=== PATIENT | female | born 1985 | race Caucasian/White ===

== ENCOUNTER 2024-08-12 18:18 | Emergency (ER) | payer OTHER, SELFPAY ==
[2024-08-12] VITALS (20 sets, daily range): BP systolic 118–131; BP diastolic 73–82; PULSE 70–75; RESP 16; O2SAT 96–100
--- NOTE | ~2024-08-12 | CT_ITS ---
EXAMINATION: CT abdomen pelvis w con DATE: 08/12/2024 20:32 INDICATION: ruq pain w/ eating TECHNIQUE: Computed tomography (CT) of the abdomen and pelvis was performed with 100 mL Omnipaque-350 intravenous contrast. Automated exposure control and iterative reconstruction technique were employe d. The dose-length product was 509.67 mGy-cm. COMPARISON: None. FINDINGS: Lower thorax: Unremarkable Liver: Normal. Biliary/Gallbladder: Gallbladder is normal. No bile duct dilation. Pancreas: No mass or duct dilation. Spleen: Normal. Adrenals:No mass. Kidneys: Indeterminate density 12 mm right upper pole lesion. Bilateral subcentimeter hypodensities, too small to characterize but statistically most likely represent cysts. Punctate nonobstructing bila teral calculi. Minimal right pelviectasis and caliectasis, with ureteral stranding and enhancement. N o obstructing mass or stone detected in the right collecting system. Uniform renal enhancement. GI tract: No small or large bowel dilation. Normal appendix. Mesentery/Peritoneum: No ascites, mass, or free air. Retroperitoneum: No mass. Pelvis: Pelvic organs are within normal limits. Soft Tissues: Moderate fat-containing uncomplicated appearing umbilical hernia. Bones: No acute osseous finding. IMPRESSION: 12 mm indeterminate density right upper pole lesion. Recommend nonemergent but timely MRI or CT witho ut and with contrast for further evaluation. Mild right pelviectasis and caliectasis with ureteral stranding, may represent ascending infection in the appropriate clinical context. Reviewed, dictated and finalized at location K. IMPRESSION: 12 mm indeterminate density right upper pole lesion. Recommend nonemergent but timely MRI or CT without and with contrast for further evaluation. Mild right pelviectasis and caliectasis with ureteral stranding, may represent ascending infection in the appropriate clinical context.
[2024-08-12 18:56] LABS: Basophils Absolute Auto 0.1 K/mm3 (0.0-0.1); Basophils Percent Auto 0.8 % (0.2-1.2); Eosinophils Absolute Auto 0.8 K/mm3 (0-0.3); Eosinophils Percent Auto 10.2 % (0-4.4); Hematocrit 36.7 % (37.0-47.0); Hemoglobin 12.7 g/dL (12.0-15.0); Immature Granulocyte Absolute 0.02 K/mm3 (0.00-0.031); Immature Granulocyte Percent A 0.3 % (0-0.5); Lymphocytes Absolute Auto 2.08 K/mm3 (0.9-3.2); Lymphocytes Percent Auto 26.7 % (18.3-44.2); Mean Corpuscular HGB Conc 34.6 g/dl (32-36); Mean Corpuscular Hemoglobin 29.8 pg (26-34); Mean Corpuscular Volume 86.2 fl (80-100); Monocytes Absolute Auto 0.3 K/mm3 (0.1-0.6); Monocytes Percent Auto 3.9 % (2.6-8.5); Neutrophils Absolute Auto 4.5 K/mm3 (1.3-6.7); Neutrophils Percent Auto 58.1 % (45.5-73.1); Platelet Count Result 393 k/mm3 (150-375); Red Blood Count 4.26 M/mm3 (4.2-5.4); Red Cell Distribution Width 12.3 % (11.5-14.5); White Blood Count 7.8 K/mm3 (4.5-10.0)
[2024-08-12 19:01] LABS: Add Urine Microscopic? NO; Appearance Urine Clear (Clear); Bilirubin Urine Negative (Negative); Blood Urine Negative (Negative); Color Urine Yellow (Yellow); Glucose Urine UA Negative (Negative); Ketones Urine Negative (Negative); Leukocyte Esterase Ur Negative LEU/UL (Negative); Nitrate Urine Negative (Negative); Protein Urine Negative (Negative); Specific Grav Ur 1.003 (1.001-1.035); Urobilinogen Urine 0.2 mg/dL (<2.0)
[2024-08-12 19:05] LABS: Alanine Aminotransferase 18 U/L (6-35); Albumin Level 4.9 g/dL (3.5-5.1); Alkaline Phosphatase 68 U/L (38-126); Anion Gap 10 mmol/L (4-12); Aspartate Amino Transferase 24 U/L (14-36); Bilirubin,Total 0.3 mg/dL (0.2-1.3); Blood Urea Nitrogen 10 mg/dL (7-17); Calcium 9.6 mg/dL (8.4-10.2); Carbon Dioxide 28 mmol/L (22-30); Chloride 102 mmol/L (98-107); Estimated CRCL calculation 109 ml/min; Estimated Glomerular Filt Rate > 60; Glucose 99 mg/dL (65-110); Lipase 96 U/L (23-300); Potassium 3.6 mmol/L (3.4-5.0); Sodium 140 mmol/L (137-145)
--- OUTSIDE RECORDS SUMMARY | 2024-08-12 19:10 | XMS_ITS | Encounter Summary ---
Author Organization [facility] Address [address] [place] [address] Care Team Providers Care Steam Tender Name Role Phone Porsha Garrido MD Primary Care Provider Encounter Details Date Type Department Care Team (Late st Contact Info) Description 01/26/2001 Outpatient Historical [facility] Pediatrics [place] [address] [facility] [place] [address] Ally Keller MD [address] [facility] 20 [place] [address] Social History Tobacco Use Types Packs/Day Years Used Date Smoking Tobacco: Never Assessed Comments Unknown Sex and Gender Information Value Date Recorded Sex Assigned at Not on file Legal Sex Female 3:08 AM CRUSHER SETTER Gender Identity Not on file Sexual Orientation Not on file documented as of this encounter Plan of Treatment Upcoming Encounters Date Type Department Care Team (Late st Contact Info) Description 08/24/2024 8:45 AM CDT Appointment [facility] Cristian Grullonelwood 801 [facility] [address] [place] [address] Gary Burgess MD [address] [facility] [place] [address] 06/25/2025 3:10 PM CRUSHER SETTER Office Visit [facility] Gastroenterology [place] [address] [place] [address] [place] [address] Gary Burgess MD [address] [id number] [place] [address] 08/08/2025 10:30 AM CDT Office Visit [facility] Neurology [facility] [address] [place] [address] Rama De La Paz MD [address] [place] [address] documented as of this encounter Visit Diagnoses Not on filedocumented in this encounter Additional Health Concerns Infection Onset Date Last Indicated Resolved Time R/O C. diff 05/21/2020 05/21/2020 05/21/2020 1:01 PM CRUSHER SETTER R/O C. diff 10/31/2021 10/30/2021 10/31/2021 3:51 PM CDT R/O C. diff 09/01/2022 08/31/2022 09/01/2022 5:17 PM CDT documented as of this encounter Care Teams Steam Tender Relationship Specialty Start Date End Date Porsha Garrido MD [address] [place] [address] [place] [address] PCP - General 03/04/09 documented as of this encounter
--- OUTSIDE RECORDS SUMMARY | 2024-08-12 19:10 | XMS_ITS | Encounter Summary ---
Author Organization [facility] Address [address] [place] [address] Care Team Providers Care Firefighter Type One Name Role Phone Porsha Garrido MD Primary Care Provider [phone] Encounter Details Date Type Department Care Team (Late st Contact Info) Description 12/09/1999 Outpatient Historical [facility] Pediatrics [place] [address] [facility] [place] [address] Ally Keller MD 450[address] [facility] 20 [place] [address] Social History Tobacco Use Types Packs/Day Years Used Date Smoking Tobacco: Never Assessed Comments Unknown Sex and Gender Information Value Date Recorded Sex Assigned at Not on file Legal Sex Female 3:08 AM HAND ETCHER Gender Identity Not on file Sexual Orientation Not on file documented as of this encounter Plan of Treatment Upcoming Encounters Date Type Department Care Team (Late st Contact Info) Description 08/24/2024 8:45 AM CDT Appointment [facility] Cristian Grullonelwood 801 [facility] 400 [place] [address] Gary Burgess MD [address] [facility]1200 [place] [address] 06/25/2025 3:10 PM HAND ETCHER Office Visit [facility] Gastroenterology [place] [address] [address] [place] [address] Gary Burgess MD [address] [id number] [place] [address] 08/08/2025 10:30 AM CDT Office Visit [facility] Neurology [facility] [address] [place] [address] Rama De La Paz MD [address] [place] [address] documented as of this encounter Visit Diagnoses Not on filedocumented in this encounter Additional Health Concerns Infection Onset Date Last Indicated Resolved Time R/O C. diff 05/21/2020 05/21/2020 05/21/2020 1:01 PM HAND ETCHER R/O C. diff 10/31/2021 10/30/2021 10/31/2021 3:51 PM CDT R/O C. diff 09/01/2022 08/31/2022 09/01/2022 5:17 PM CDT documented as of this encounter Care Teams Firefighter Type One Relationship Specialty Start Date End Date Porsha Garrido MD [address] [place] [address] [place] [address] PCP - General 03/04/09 documented as of this encounter
--- OUTSIDE RECORDS SUMMARY | 2024-08-12 19:10 | XMS_ITS | Encounter Summary ---
Author Organization [facility] Address [address] [place] [address] Care Team Providers Care Road Engineer Name Role Phone Porsha Garrido MD Primary Care Provider Encounter Details Date Type Department Care Team (Late st Contact Info) Description 01/02/1998 Outpatient Historical [facility] [place] [address] [facility] [place] [address] [place] [address] Deshawn Kitchen MD NO ADDRESS ON FILE Social History Tobacco Use Types Packs/Day Years Used Date Smoking Tobacco: Never Assessed Comments Unknown Sex and Gender Information Value Date Recorded Sex Assigned at Not on file Legal Sex Female 3:08 AM SLEEPING ROOM CLEANER Gender Identity Not on file Sexual Orientation Not on file documented as of this encounter Plan of Treatment Upcoming Encounters Date Type Department Care Team (Late st Contact Info) Description 08/24/2024 8:45 AM CDT Appointment [facility] Ultrasound Rupesh [address] [place] [address] Gary Burgess MD [address] [id number] [place] [address] 06/25/2025 3:10 PM SLEEPING ROOM CLEANER Office Visit [facility] Gastroenterology [facility] [address] [place] [address] [place] [address] Gary Burgess MD [address] [id number] [place] [address] 08/08/2025 10:30 AM CDT Office Visit [facility] Neurology [address] [place] [address] [place] [address] Rama De La Paz MD [address] [place] [place] [address] documented as of this encounter Visit Diagnoses Not on filedocumented in this encounter Additional Health Concerns Infection Onset Date Last Indicated Resolved Time R/O C. diff 05/21/2020 05/21/2020 05/21/2020 1:01 PM SLEEPING ROOM CLEANER R/O C. diff 10/31/2021 10/30/2021 10/31/2021 3:51 PM CDT R/O C. diff 09/01/2022 08/31/2022 09/01/2022 5:17 PM CDT documented as of this encounter Care Teams Road Engineer Relationship Specialty Start Date End Date Porsha Garrido MD [address] [place] [address] PCP - General 03/04/09 documented as of this encounter
--- OUTSIDE RECORDS SUMMARY | 2024-08-12 19:10 | XMS_ITS | Encounter Summary ---
Author Organization [facility] Address [address] [place] [address] Care Team Providers Care Nail Tech Name Role Phone Porsha Garrido MD Primary Care Provider [phone] Encounter Details Date Type Department Care Team (Late st Contact Info) Description 05/11/2002 Outpatient Historical [facility] [address] [facility] [place] [address] Deshawn Kitchen MD NO ADDRESS ON FILE Social History Tobacco Use Types Packs/Day Years Used Date Smoking Tobacco: Never Assessed Comments Unknown Sex and Gender Information Value Date Recorded Sex Assigned at Not on file Legal Sex Female 3:08 AM APPRENTICE CARPENTER Gender Identity Not on file Sexual Orientation Not on file documented as of this encounter Plan of Treatment Upcoming Encounters Date Type Department Care Team (Late st Contact Info) Description 08/24/2024 8:45 AM CDT Appointment [facility] Ultrasound Rupesh [address] [place] [address] Gary Burgess MD [address] [id number] [place] [address] 06/25/2025 3:10 PM APPRENTICE CARPENTER Office Visit [facility] Gastroenterology [facility] [address] [place] [address] [place] [address] Gary Burgess MD [address] [id number] [place] [address] 08/08/2025 10:30 AM CDT Office Visit [facility] Neurology [address] [place] [address] [place] [address] Rama De La Paz MD [address] [place] [address] documented as of this encounter Visit Diagnoses Not on filedocumented in this encounter Additional Health Concerns Infection Onset Date Last Indicated Resolved Time R/O C. diff 05/21/2020 05/21/2020 05/21/2020 1:01 PM APPRENTICE CARPENTER R/O C. diff 10/31/2021 10/30/2021 10/31/2021 3:51 PM CDT R/O C. diff 09/01/2022 08/31/2022 09/01/2022 5:17 PM CDT documented as of this encounter Care Teams Nail Tech Relationship Specialty Start Date End Date Porsha Garrido MD [address] [place] [address] PCP - General 03/04/09 documented as of this encounter
--- OUTSIDE RECORDS SUMMARY | 2024-08-12 19:10 | XMS_ITS | Encounter Summary ---
Author Organization [facility] Address [address] [facility] [place] [address] Care Team Providers Care Chiropractic Care Name Role Phone Porsha Garrido MD Primary Care Provider Carina Rey MD Unavailable Unavailable Gary Burgess MD Unavailable [phone] Evelyn García RN Unavailable [phone] Porsha Garrido MD Unavailable [phone] Joselito Gold MD Unavailable [phone] Porsha Garrido MD Unavailable [phone] Joselito Gold MD Unavailable [phone] Jolie Marrero PA-C Unavailable [phone] Porsha Garrido MD Unavailable [phone] Porsha Garrido MD Unavailable [phone] Joselito Casarez MD Unavailable Unavailable Michelle Nogueira LITIGATION LEGAL ASSISTANT-SENIOR BENEFITS ANALYST Unavailable [phone] Porsha Garrido MD Unavailable Paloma Romo Unavailable Marjorie Weston DO Unavailable Porsha Garrido MD Unavailable Encounter Details Date Type Department Care Team (Late st Contact Info) Description 10/11/[address] [facility] Outpatient Visit [facility] Orthopedics - Radiology [address] [place] [address] Meir Luo DO [address] [place] [address] [place] [id number] Social History Tobacco Use Types Packs/Day Years Used Date Smoking Tobacco: Never Smokeless Tobacco: Never Alcohol Use Standard Drinks/Week Comments Yes 0 (1 standard drink = 0.6 oz pur e alcohol) occasionally Sex and Gender Information Value Date Recorded Sex Assigned at Not on file Gender Identity Female 01/16/2019 9:49 AM CDT Sexual Orientation Not on file documented as of this encounter Plan of Treatment Upcoming Encounters Date Type Department Care Team (Late st Contact Info) Description 10/05/2024 10:00 AM CDT Office Visit [facility] - Surgery [address] [place] [address] Satnam Nicole MD [address] [place] [address] 10/12/2024 8:15 AM CDT Video Visit [facility] - Family Medicine [address] [place] [address] Porsha Garrido MD [address] [place] [id number] documented as of this encounter Visit Diagnoses Not on filedocumented in this encounter Additional Health Concerns Infection Onset Date Last Indicated Resolved Time COVID-19 Under Investigation 04/01/2020 04/01/2020 04/02/2020 2:40 PM SUPERVISOR OF OFFICIALS COVID-19 Confirmed 04/01/2020 04/01/202004/11/202 0 4:34 AM SUPERVISOR OF OFFICIALS documented as of this encounter Care Teams Chiropractic Care Relationship Specialty Start Date End Date Porsha Garrido MD [address] [place] [address] PCP - General 01/31/11 Porsha Garrido MD [address] [place] [address] PCP - Attributed-[employer] Commercial 09/13/18 11/01/19 Joselito Gold MD [address] [place] [address] PCP - Attributed-[employer] 07/15/19 08/14/19 Porsha Garrido MD [address] [place] [address] PCP - Attributed-[employer] 08/15/19 07/13/20 Jolie Marrero PA-C [address] [place] [phone] PCP - Attributed-[employer] 07/14/20 08/13/20 Porsha Garrido MD [address] [place] [address] PCP - Attributed-[employer] 08/14/20 12/29/21 Porsha Garrido MD [address] [place] [address] PCP - Attributed-[employer] Commercial 05/16/22 08/31/22 Porsha Garrido MD [address] [place] [address] [place] [address] PCP - Attributed-[place] Commercial 11/13/22 07/31/24 Porsha Garrido MD [address] [place] [address] PCP - Attributed-[employer] 10/29/16 09/14/17 Carina Rey MD [address] [place] [address] Obstetrics and Gynecology 10/27/11 07/14/20 Gary Burgess MD [address] [place] [address] [place] [address] Gastroenterology 08/22/13 Evelyn García, RN Tier And Detonator 01/05/15 06/07/24 Joselito Gold MD [address] [place] [address] Obstetrics and Gynecology 07/15/20 5 Joselito Casarez MD [address] [place] [phone] Hematology and Oncology 09/03/22 05/26/23 Michelle Nogueira, LITIGATION LEGAL ASSISTANT-SENIOR BENEFITS ANALYST [address] [place] [address] [place] [address] Nurse Practitioner Nurse Practitioner Adult Health 09/03/22 Paloma Romo Care Coordination Specialist Care Management 12/13/23 12/13/23 Marjorie Weston DO [address] [facility] 200 [place] [address] Rheumatology 05/31/24 documented as of this encounter
--- OUTSIDE RECORDS SUMMARY | 2024-08-12 19:10 | XMS_ITS | Encounter Summary ---
Author Organization [facility] Address [address] [place] [address] Care Team Providers Care Top Trimmer Name Role Phone Porsha Garrido MD Primary Care Provider Encounter Details Date Type Department Care Team (Late st Contact Info) Description 08/15/2000 Outpatient Historical [facility] [address] [facility] [place] [address] [place] [address] Deshawn Kitchen MD NO ADDRESS ON FILE Social History Tobacco Use Types Packs/Day Years Used Date Smoking Tobacco: Never Assessed Comments Unknown Sex and Gender Information Value Date Recorded Sex Assigned at Not on file Legal Sex Female 3:08 AM PET SUPPLIES SALESPERSON Gender Identity Not on file Sexual Orientation Not on file documented as of this encounter Plan of Treatment Upcoming Encounters Date Type Department Care Team (Late st Contact Info) Description 08/24/2024 8:45 AM CDT Appointment [facility] Ultrasound Rupesh [address] [place] [address] Gary Burgess MD [address] [id number] [place] [address] 06/25/2025 3:10 PM PET SUPPLIES SALESPERSON Office Visit [facility] Gastroenterology [facility] [address] [place] [address] [place] [address] Gary Burgess MD [address] [id number] [place] [address] 08/08/2025 10:30 AM CDT Office Visit [facility] Neurology [address] [place] [address] Rama De La Paz MD [address] [place] [address] documented as of this encounter Visit Diagnoses Not on filedocumented in this encounter Additional Health Concerns Infection Onset Date Last Indicated Resolved Time R/O C. diff 05/21/2020 05/21/2020 05/21/2020 1:01 PM PET SUPPLIES SALESPERSON R/O C. diff 10/31/2021 10/30/2021 10/31/2021 3:51 PM CDT R/O C. diff 09/01/2022 08/31/2022 09/01/2022 5:17 PM CDT documented as of this encounter Care Teams Top Trimmer Relationship Specialty Start Date End Date Porsha Garrido MD [address] [place] [address] PCP - General 03/04/09 documented as of this encounter
--- OUTSIDE RECORDS SUMMARY | 2024-08-12 19:10 | XMS_ITS | Encounter Summary ---
Author Organization [facility] Address [address] [place] [address] Care Team Providers Care Assembler Finger Buffs Name Role Phone Porsha Garrido MD Primary Care Provider Encounter Details Date Type Department Care Team (Late st Contact Info) Description 08/18/1998 Outpatient Historical [facility] Pediatrics [place] [address] [facility] [place] [address] Brayan Solitario MD [address] [place] [address] Social History Tobacco Use Types Packs/Day Years Used Date Smoking Tobacco: Never Assessed Comments Unknown Sex and Gender Information Value Date Recorded Sex Assigned at Not on file Legal Sex Female 3:08 AM INFANTRY UNIT LEADER Gender Identity Not on file Sexual Orientation Not on file documented as of this encounter Plan of Treatment Upcoming Encounters Date Type Department Care Team (Late st Contact Info) Description 08/24/2024 8:45 AM CDT Appointment [facility] Cristian Goddard [address] [facility] [place] [address] [place] [address] Gary Burgess MD [address] [facility] [place] [address] 06/25/2025 3:10 PM INFANTRY UNIT LEADER Office Visit [facility] Gastroenterology [place] [address] [place] [address] Gary Burgess MD [address] [id number] [place] [address] 08/08/2025 10:30 AM CDT Office Visit [facility] Neurology [facility] [address] [place] [address] Rama De La Paz MD [address] [place] [address] documented as of this encounter Visit Diagnoses Not on filedocumented in this encounter Additional Health Concerns Infection Onset Date Last Indicated Resolved Time R/O C. diff 05/21/2020 05/21/2020 05/21/2020 1:01 PM INFANTRY UNIT LEADER R/O C. diff 10/31/2021 10/30/2021 10/31/2021 3:51 PM CDT R/O C. diff 09/01/2022 08/31/2022 09/01/2022 5:17 PM CDT documented as of this encounter Care Teams Assembler Finger Buffs Relationship Specialty Start Date End Date Porsha Garrido MD [address] [place] [address] PCP - General 03/04/09 documented as of this encounter
--- OUTSIDE RECORDS SUMMARY | 2024-08-12 19:10 | XMS_ITS | Encounter Summary ---
Author Organization [facility] Address [address] [place] [address] Care Team Providers Care Tool Sharpener Name Role Phone Porsha Garrido MD Primary Care Provider Encounter Details Date Type Department Care Team (Late st Contact Info) Description 11/23/2004 Outpatient Historical [facility] [place] [address] [facility] [place] [address] Deshawn Kitchen MD NO ADDRESS ON FILE Social History Tobacco Use Types Packs/Day Years Used Date Smoking Tobacco: Never Assessed Comments Unknown Sex and Gender Information Value Date Recorded Sex Assigned at Not on file Legal Sex Female 3:08 AM NURSING PROGRAM CHAIR Gender Identity Not on file Sexual Orientation Not on file documented as of this encounter Plan of Treatment Upcoming Encounters Date Type Department Care Team (Late st Contact Info) Description 08/24/2024 8:45 AM CDT Appointment [facility] Ultrasound Rupesh [address] [place] [address] Gary Burgess MD [address] [id number] [place] [address] 06/25/2025 3:10 PM NURSING PROGRAM CHAIR Office Visit [facility] Gastroenterology [facility] [address] [place] [address] Gary Burgess MD [address] [id number] [place] [address] 08/08/2025 10:30 AM CDT Office Visit [facility] Neurology [address] [place] [address] Rama De La Paz MD [address] [place] [address] documented as of this encounter Visit Diagnoses Not on filedocumented in this encounter Additional Health Concerns Infection Onset Date Last Indicated Resolved Time R/O C. diff 05/21/2020 05/21/2020 05/21/2020 1:01 PM NURSING PROGRAM CHAIR R/O C. diff 10/31/2021 10/30/2021 10/31/2021 3:51 PM CDT R/O C. diff 09/01/2022 08/31/2022 09/01/2022 5:17 PM CDT documented as of this encounter Care Teams Tool Sharpener Relationship Specialty Start Date End Date Porsha Garrido MD [address] [place] [phone] PCP - General 03/04/09 documented as of this encounter
--- OUTSIDE RECORDS SUMMARY | 2024-08-12 19:10 | XMS_ITS | Encounter Summary ---
Author Organization [facility] Address [address] [place] [address] Care Team Providers Care Motor Scooter Mechanic Name Role Phone Porsha Garrido MD Primary Care Provider Encounter Details Date Type Department Care Team (Late st Contact Info) Description 06/29/2005 Orders Only [facility] Pediatrics [place] [address] [facility] [place] [address] Vandana Hernandez NP NO ADDRESS ON FILE Social History Tobacco Use Types Packs/Day Years Used Date Smoking Tobacco: Never Assessed Comments Unknown Sex and Gender Information Value Date Recorded Sex Assigned at Not on file Legal Sex Female 3:08 AM HAT BAND ATTACHER Gender Identity Not on file Sexual Orientation Not on file documented as of this encounter Progress Notes * Vandana Hernandez NP - 02/22/2008 2:41 PM CDT TIME:05:43 pm PATIENT`S HOME PHONE: PATIENT`S WORK PHONE: PATIENT`S INSURANCE: [employer] WHO TOOK THE CALL: Deshawn Kitchen A saw PATRICE yesterday and had pelvic and abdominal ultrasounds today.Both are normal Please call family TOMORROW on 07-01-05 and let them know that all X rays normal. This am (07-01) I got the urine culture back which shows presence of UTI. Start Septra DS, 1 po bid andcall back Tuesday with follow up report and to check on the sensitivities SECTION 1: DOCTOR`S RESPONSE: mayank 07/01/05 at 08:14 am MEDICATIONS: Call in to Pharmacy [facility] DS ORAL TABLET [id number] MG TABLETS, 1 po bid, 20 Dispensed, status: NEW PRESCRIPTION, 06/29/2005. SECTION 2: FINAL ACTION: óscar 07/01/05 at 09:29 am Spoke with patient 07/01/05 at 09:29 am. mom informed of all; will call back sat Called pharmacy at 07/01/05 at 09:30 am. daniella ramirez Electronically Signed by: Morena Reyes RN on , July 01, 2005 * Vandana Hernandez NP - 02/22/2008 2:41 PM CDT PATIENT'S AGE: 20 yrs, 0 mths, 1 wk, 6 days NURSE NAME: Vicenta Tidwell Dominik wt-117 lb temp-99.0ty ACCOMPANIED BY: The patient came alone. HISTORY PROVIDED BY: The patient history was provided by the patient (alone). ALLERGIES: CURRENT ALLERGY LIST: [facility] MEDICATIONS: RN/MA reviewed medications.naeem, adv, nexium CHIEF COMPLAINT: The child is here for evaluation of pain.in LLQ x 1 week, dances at school HISTORY: HPI: ABDOMINAL PAIN: The abdominal pain began approximately 1 week ago. The location of the pain is in the right lower quadrant. The pain does not radiate. The quality is crampy. The severity is intermittent. The patient has no complaints of bowel changes, no complaints of constipation, no complaints ofnausea, no complaints of vomiting, the patient does not have a fever. LMP 10-14 days ago. periods without problems. She dances regularly, no recent injury or unusual activities. REVIEW OF SYSTEMS: GENERAL: Appears to have normal activity, no change in appetite, no fever, normal fluid intake, sleeps well. GI: No vomiting, APPEARS TO HAVE ABDOMINAL PAIN WHICH IS LOCATED IN THE RIGHT LOWER QUADRANT. PHYSICAL EXAM: CONSTITUTIONAL: GENERAL APPEARANCE: Healthy appearing, alert patient, normally nourished, developmentally normal and in no acute distress. EYES: CONJUNCTIVA/LIDS: Conjunctivae and lids appear normal. PUPILS: Pupils equal and round. EARS, NOSE, MOUTH AND THROAT: EXTERNAL/EARS AND NOSE: Overall appearance normal without lesions or masses. EARS: Tympanic membranes shiny without retraction. Canals unremarkable. Hearing grossly normal. NOSE (AND SINUS): No abnormality of the nose or sinuses is noted. ORAL: Inspection of gums, lips, palate, and dentition normal. No lesions or masses. Oral mucosa unremarkable with non-inflamed posterior pharynx. NECK: No lymphadenopathy noted. Supple. RESPIRATORY: Clear to auscultation. Normal respiratory effort. CARDIOVASCULAR: CARDIAC: Regular rhythm with no murmurs, rubs, gallops, or abnormal heart sounds. GASTROINTESTINAL: ABDOMEN: Soft, non-tender, without masses. Bowel sound active.no significant findings on exam today. I cannot reproduce the pain. LIVER/SPLEEN/KIDNEY: No hepatosplenomegaly. MUSCULOSKELETAL EXAM: SPINE/RIBS/PELVIS: No kyphosis, lordosis, full range of motion. Normal stability, strength and tone. SKIN: INSPECTION: Good color, no rashes, birthmarks or lesions noted on arms, chest or abdomen. OFFICE PROCEDURE: URINALYSIS RESULTS WBC: WBC`s were negative. NITRITE: nitrites were negative. UROBILINOGEN urobilinogen was normal. PROTEIN: protein was negative. pH: pH was 5. U/A BLOOD: blood was negative. SPECIFIC GRAVITY: specific gravity was 1.030. KETONES: ketones were negative. BILIRUBIN: bilirubin was negative. GLUCOSE: glucose was negative. ASSESSMENT/PLAN: 789.07-ABDOMINAL PAIN GENERALIZED ? DESKTOP SPECIALIST in nature Abdominal and pelvic US scheduled for 06/30 at [facility]. Call sooner if any increased sxs develop Electronically Signed by: YUSUF Ferrari on Wednesday, June 29, 2005 Electronically Signed by: Deshawn Kitchen MD on Thursday, June 30, 2005 documented in this encounter Plan of Treatment Upcoming Encounters Date Type Department Care Team (Late st Contact Info) Description 08/24/2024 8:45 AM CDT Appointment [facility] Cristian Alton [address] [place] [address] Gary Burgess MD [address] [place] [address] 06/25/2025 3:10 PM HAT BAND ATTACHER Office Visit [facility] Gastroenterology [place] [address] [facility] [address] [place] [address] Gary Burgess MD [address] [facility] [id number] [place] [address] 08/08/2025 10:30 AM CDT Office Visit [facility] Neurology [facility] [address] [facility] [address] [place] [address] Rama De La Paz MD [address] [facility] [address] [place] [address] documented as of this encounter Visit Diagnoses Not on filedocumented in this encounter Additional Health Concerns Infection Onset Date Last Indicated Resolved Time R/O C. diff 05/21/2020 05/21/2020 05/21/2020 1:01 PM HAT BAND ATTACHER R/O C. diff 10/31/2021 10/30/2021 10/31/2021 3:51 PM CDT R/O C. diff 09/01/2022 08/31/2022 09/01/2022 5:17 PM CDT documented as of this encounter Care Teams Motor Scooter Mechanic Relationship Specialty Start Date End Date Porsha Garrido MD [address] [place] [address] PCP - General 03/04/09 documented as of this encounter
--- OUTSIDE RECORDS SUMMARY | 2024-08-12 19:10 | XMS_ITS | Encounter Summary ---
Author Organization [facility] Address [address] [place] [address] Care Team Providers Care Brokerage Manager Name Role Phone Porsha Garrido MD Primary Care Provider Encounter Details Date Type Department Care Team (Late st Contact Info) Description 10/13/2005 Outpatient Historical [facility] [place] [address] [facility] [place] [address] Deshawn Kitchen MD NO ADDRESS ON FILE Social History Tobacco Use Types Packs/Day Years Used Date Smoking Tobacco: Never Assessed Comments Unknown Sex and Gender Information Value Date Recorded Sex Assigned at Not on file Legal Sex Female 3:08 AM CRYPTOGRAPHIC CLERK Gender Identity Not on file Sexual Orientation Not on file documented as of this encounter Plan of Treatment Upcoming Encounters Date Type Department Care Team (Late st Contact Info) Description 08/24/2024 8:45 AM CDT Appointment [facility] Ultrasound Rupesh [address] [place] [address] Gary Burgess MD [address] [id number] [place] [address] 06/25/2025 3:10 PM CRYPTOGRAPHIC CLERK Office Visit [facility] Gastroenterology [facility] [address] [place] [address] Gary Burgess MD [address] [id number] [place] [address] 08/08/2025 10:30 AM CDT Office Visit [facility] Neurology [address] [place] [address] Rama De La Paz MD [address] [place] [address] documented as of this encounter Visit Diagnoses Not on filedocumented in this encounter Additional Health Concerns Infection Onset Date Last Indicated Resolved Time R/O C. diff 05/21/2020 05/21/2020 05/21/2020 1:01 PM CRYPTOGRAPHIC CLERK R/O C. diff 10/31/2021 10/30/2021 10/31/2021 3:51 PM CDT R/O C. diff 09/01/2022 08/31/2022 09/01/2022 5:17 PM CDT documented as of this encounter Care Teams Brokerage Manager Relationship Specialty Start Date End Date Porsha Garrido MD [address] [place] [address] PCP - General 03/04/09 documented as of this encounter
--- OUTSIDE RECORDS SUMMARY | 2024-08-12 19:10 | XMS_ITS | Encounter Summary ---
Author Organization [facility] Address [address] [place] [address] Care Team Providers Care Home Health Clinical Liaison Name Role Phone Porsha Garrido MD Primary Care Provider Encounter Details Date Type Department Care Team (Late st Contact Info) Description 01/17/1998 Outpatient Historical [facility] Pediatrics [place] [facility] [place] [address] [facility] [place] [address] Eduardo Mason MD NO ADDRESS ON FILE Social History Tobacco Use Types Packs/Day Years Used Date Smoking Tobacco: Never Assessed Comments Unknown Sex and Gender Information Value Date Recorded Sex Assigned at Not on file Legal Sex Female 3:08 AM PHYSICIAN RELATIONS REPRESENTATIVE Gender Identity Not on file Sexual Orientation Not on file documented as of this encounter Plan of Treatment Upcoming Encounters Date Type Department Care Team (Late st Contact Info) Description 08/24/2024 8:45 AM CDT Appointment [facility] Ultrasound Rupesh [address] [place], [place] [address]siddharth [facility] [address] [place] [phone] Gary Burgess MD [address] [id number] [place] [address] 06/25/2025 3:10 PM PHYSICIAN RELATIONS REPRESENTATIVE Office Visit [facility] Gastroenterology [place] [address] [place] [address] Gary Burgess MD [address] [id number] [place] [address] 08/08/2025 10:30 AM CDT Office Visit [facility] Neurology [address] [place] [address] Rama De La Paz MD [address] [place] [address] documented as of this encounter Visit Diagnoses Not on filedocumented in this encounter Additional Health Concerns Infection Onset Date Last Indicated Resolved Time R/O C. diff 05/21/2020 05/21/2020 05/21/2020 1:01 PM PHYSICIAN RELATIONS REPRESENTATIVE R/O C. diff 10/31/2021 10/30/2021 10/31/2021 3:51 PM CDT R/O C. diff 09/01/2022 08/31/2022 09/01/2022 5:17 PM CDT documented as of this encounter Care Teams Home Health Clinical Liaison Relationship Specialty Start Date End Date Porsha Garrido MD [address] [place] [address] PCP - General 03/04/09 documented as of this encounter
--- OUTSIDE RECORDS SUMMARY | 2024-08-12 19:10 | XMS_ITS | Encounter Summary ---
Author Organization [facility] Address [address] [place] [address] Care Team Providers Care Cardiac Care Nurse Name Role Phone Porsha Garrido MD Primary Care Provider Encounter Details Date Type Department Care Team (Late st Contact Info) Description 10/13/2005 Outpatient Historical [facility] [place] [address] [facility] [place] [address] [place] [address] Deshawn Kitchen MD NO ADDRESS ON FILE Social History Tobacco Use Types Packs/Day Years Used Date Smoking Tobacco: Never Assessed Comments Unknown Sex and Gender Information Value Date Recorded Sex Assigned at Not on file Legal Sex Female 3:08 AM MANPOWER DEVELOPMENT SPECIALIST MANAGER Gender Identity Not on file Sexual Orientation Not on file documented as of this encounter Plan of Treatment Upcoming Encounters Date Type Department Care Team (Late st Contact Info) Description 08/24/2024 8:45 AM CDT Appointment [facility] Ultrasound Rupesh [address] [place] [address] Gary Burgess MD [address] [id number] [place] [address] 06/25/2025 3:10 PM MANPOWER DEVELOPMENT SPECIALIST MANAGER Office Visit [facility] Gastroenterology [facility] [address] [place] [address] Gary Burgess MD [address] [id number] [place] [address] 08/08/2025 10:30 AM CDT Office Visit [facility] Neurology [address] [place] [address] Rama De La Paz MD [address] [place] [address] documented as of this encounter Visit Diagnoses Not on filedocumented in this encounter Additional Health Concerns Infection Onset Date Last Indicated Resolved Time R/O C. diff 05/21/2020 05/21/2020 05/21/2020 1:01 PM MANPOWER DEVELOPMENT SPECIALIST MANAGER R/O C. diff 10/31/2021 10/30/2021 10/31/2021 3:51 PM CDT R/O C. diff 09/01/2022 08/31/2022 09/01/2022 5:17 PM CDT documented as of this encounter Care Teams Cardiac Care Nurse Relationship Specialty Start Date End Date Porsha Garrido MD [address] [place] [address] PCP - General 03/04/09 documented as of this encounter
--- OUTSIDE RECORDS SUMMARY | 2024-08-12 19:10 | XMS_ITS | Encounter Summary ---
Author Organization [facility] Address [address] [place] [address] Care Team Providers Care Electronic Organ Mechanic Name Role Phone Porsha Garrido MD Primary Care Provider Encounter Details Date Type Department Care Team (Late st Contact Info) Description 02/16/1999 Outpatient Historical [facility] [place] [address] [facility] [place] [address] [place] [address] Deshawn Kitchen MD NO ADDRESS ON FILE Social History Tobacco Use Types Packs/Day Years Used Date Smoking Tobacco: Never Assessed Comments Unknown Sex and Gender Information Value Date Recorded Sex Assigned at Not on file Legal Sex Female 3:08 AM EXECUTIVE CHAIRMAN Gender Identity Not on file Sexual Orientation Not on file documented as of this encounter Plan of Treatment Upcoming Encounters Date Type Department Care Team (Late st Contact Info) Description 08/24/2024 8:45 AM CDT Appointment [facility] Ultrasound Rupesh [address] [place] [address] Gary Burgess MD [address] [id number] [place] [address] 06/25/2025 3:10 PM EXECUTIVE CHAIRMAN Office Visit [facility] Gastroenterology [facility] [address] [place] [address] Gary Burgess MD [address] [id number] [place] [address] 08/08/2025 10:30 AM CDT Office Visit [facility] Neurology [address] [place] [address] Rama De La Paz MD [address] [place] [address] documented as of this encounter Visit Diagnoses Not on filedocumented in this encounter Additional Health Concerns Infection Onset Date Last Indicated Resolved Time R/O C. diff 05/21/2020 05/21/2020 05/21/2020 1:01 PM EXECUTIVE CHAIRMAN R/O C. diff 10/31/2021 10/30/2021 10/31/2021 3:51 PM CDT R/O C. diff 09/01/2022 08/31/2022 09/01/2022 5:17 PM CDT documented as of this encounter Care Teams Electronic Organ Mechanic Relationship Specialty Start Date End Date Porsha Garrido MD [address] [place] [address] PCP - General 03/04/09 documented as of this encounter
--- OUTSIDE RECORDS SUMMARY | 2024-08-12 19:10 | XMS_ITS | Encounter Summary ---
Author Organization [facility] Address [address] [place] [address] Care Team Providers Care Scalemaker Name Role Phone Porsha Garrido MD Primary Care Provider Encounter Details Date Type Department Care Team (Late st Contact Info) Description 07/16/2002 Outpatient Historical [facility] Pediatrics [place] [address] [facility] [place] [address] Deshawn Kitchen MD NO ADDRESS ON FILE Social History Tobacco Use Types Packs/Day Years Used Date Smoking Tobacco: Never Assessed Comments Unknown Sex and Gender Information Value Date Recorded Sex Assigned at Not on file Legal Sex Female 3:08 AM CHEMICAL ENGINEERING TECHNOLOGIST Gender Identity Not on file Sexual Orientation Not on file documented as of this encounter Plan of Treatment Upcoming Encounters Date Type Department Care Team (Late st Contact Info) Description 08/24/2024 8:45 AM CDT Appointment [facility] Ultrasound Rupesh [address] [place] [address] Gary Burgess MD [address] [id number] [place] [address] 06/25/2025 3:10 PM CHEMICAL ENGINEERING TECHNOLOGIST Office Visit [facility] Gastroenterology [facility] [address] [place] [address] Gary Burgess MD [address] [id number] [place] [address] 08/08/2025 10:30 AM CDT Office Visit [facility] Neurology [address] [place] [address] Rama De La Paz MD [address] [place] [address] documented as of this encounter Visit Diagnoses Not on filedocumented in this encounter Additional Health Concerns Infection Onset Date Last Indicated Resolved Time R/O C. diff 05/21/2020 05/21/2020 05/21/2020 1:01 PM CHEMICAL ENGINEERING TECHNOLOGIST R/O C. diff 10/31/2021 10/30/2021 10/31/2021 3:51 PM CDT R/O C. diff 09/01/2022 08/31/2022 09/01/2022 5:17 PM CDT documented as of this encounter Care Teams Scalemaker Relationship Specialty Start Date End Date Porsha Garrido MD [address] [place] [address] PCP - General 03/04/09 documented as of this encounter
--- OUTSIDE RECORDS SUMMARY | 2024-08-12 19:10 | XMS_ITS | Encounter Summary ---
Author Organization [facility] Address [address] [place] [address] Care Team Providers Care Certified Marine Mechanic Name Role Phone Porsha Garrido MD Primary Care Provider Encounter Details Date Type Department Care Team (Late st Contact Info) Description 12/27/2001 Outpatient Historical [facility] [place] [address] [facility] [place] [address] [place] [address] Deshawn Kitchen MD NO ADDRESS ON FILE Social History Tobacco Use Types Packs/Day Years Used Date Smoking Tobacco: Never Assessed Comments Unknown Sex and Gender Information Value Date Recorded Sex Assigned at Not on file Legal Sex Female 3:08 AM PUBLIC HEALTH TECHNOLOGIST Gender Identity Not on file Sexual Orientation Not on file documented as of this encounter Plan of Treatment Upcoming Encounters Date Type Department Care Team (Late st Contact Info) Description 08/24/2024 8:45 AM CDT Appointment [facility] Ultrasound Rupesh [address] [place] [address] Gary Burgess MD [address] [id number] [place] [address] 06/25/2025 3:10 PM PUBLIC HEALTH TECHNOLOGIST Office Visit [facility] Gastroenterology [facility] [address] [place] [address] Gary Burgess MD [address] [id number] [place] [address] 08/08/2025 10:30 AM CDT Office Visit [facility] Neurology [address] [place] [address] Rama De La Paz MD [address] [place] [address] documented as of this encounter Visit Diagnoses Not on filedocumented in this encounter Additional Health Concerns Infection Onset Date Last Indicated Resolved Time R/O C. diff 05/21/2020 05/21/2020 05/21/2020 1:01 PM PUBLIC HEALTH TECHNOLOGIST R/O C. diff 10/31/2021 10/30/2021 10/31/2021 3:51 PM CDT R/O C. diff 09/01/2022 08/31/2022 09/01/2022 5:17 PM CDT documented as of this encounter Care Teams Certified Marine Mechanic Relationship Specialty Start Date End Date Porsha Garrido MD [address] [place] [address] PCP - General 03/04/09 documented as of this encounter
--- OUTSIDE RECORDS SUMMARY | 2024-08-12 19:10 | XMS_ITS | Encounter Summary ---
Author Organization [facility] Address [address] [place] [address] Care Team Providers Care Communication Analyst Name Role Phone Porsha Garrido MD Primary Care Provider Encounter Details Date Type Department Care Team (Late st Contact Info) Description 06/25/1998 Outpatient Historical [facility] [place] [address] [facility] [place] [phone] Deshawn Kitchen MD NO ADDRESS ON FILE Social History Tobacco Use Types Packs/Day Years Used Date Smoking Tobacco: Never Assessed Comments Unknown Sex and Gender Information Value Date Recorded Sex Assigned at Not on file Legal Sex Female 3:08 AM SIGNS SALES REPRESENTATIVE Gender Identity Not on file Sexual Orientation Not on file documented as of this encounter Plan of Treatment Upcoming Encounters Date Type Department Care Team (Late st Contact Info) Description 08/24/2024 8:45 AM CDT Appointment [facility] Ultrasound Rupesh [address] [place] [address] Gary Burgess MD [address] [id number] [place] [address] 06/25/2025 3:10 PM SIGNS SALES REPRESENTATIVE Office Visit [facility] Gastroenterology [facility] [address] [place] [address] Gary Burgess MD [address] [id number] [place] [address] 08/08/2025 10:30 AM CDT Office Visit [facility] Neurology [address] [place] [address] Rama De La Paz MD [address] [place] [address] documented as of this encounter Visit Diagnoses Not on filedocumented in this encounter Additional Health Concerns Infection Onset Date Last Indicated Resolved Time R/O C. diff 05/21/2020 05/21/2020 05/21/2020 1:01 PM SIGNS SALES REPRESENTATIVE R/O C. diff 10/31/2021 10/30/2021 10/31/2021 3:51 PM CDT R/O C. diff 09/01/2022 08/31/2022 09/01/2022 5:17 PM CDT documented as of this encounter Care Teams Communication Analyst Relationship Specialty Start Date End Date Porsha Garrido MD [address] [place] [address] PCP - General 03/04/09 documented as of this encounter
--- OUTSIDE RECORDS SUMMARY | 2024-08-12 19:10 | XMS_ITS | Encounter Summary ---
Author Organization [facility] Address [address] [place] [address] Care Team Providers Care Picker Packer Name Role Phone Porsha Garrido MD Primary Care Provider Carina Rey MD Unavailable Unavailable Gary Burgess MD Unavailable [phone] Evelyn García RN Unavailable [phone] Porsha Garrido MD Unavailable [phone] Joselito Gold MD Unavailable [phone] Porsha Garrido MD Unavailable [phone] Joselito Gold MD Unavailable [phone] Jolie Marrero PA-C Unavailable [phone] Porsha aGrrido MD Unavailable [phone] Porsha Garrido MD Unavailable [phone] Joselito Casarez MD Unavailable Unavailable Michelle Nogueira STORE TEAM LEADER-BREAKER MACHINE OPERATOR Unavailable [phone] Posrha Garrido MD Unavailable [phone] Paloma Romo Unavailable Marjorie Weston DO Unavailable Porsha Garrido MD Unavailable [phone] Encounter Details Date Type Department Care Team (Late Contact Info) Description 08/26/2016 [facility] Outpatient Visit [facility] [address] [place] [address] Document, Scanned Social History Tobacco Use Types Packs/Day Years Used Date Smoking Tobacco: Never Smokeless Tobacco: Never Alcohol Use Standard Drinks/Week Comments No 0 (1 standard drink = 0.6 oz pur e alcohol) Sex and Gender Information Value Date Recorded Sex Assigned at Not on file Gender Identity Female 01/16/2019 9:49 AM CDT Sexual Orientation Not on file documented as of this encounter Functional Status Functional Status Response Date of Assess ment Is person deaf or have serious hearing difficult y? No 01/06/2015 Is person blind or have serious difficulty seein g? No 01/06/2015 Does person have serious dif ficulty walking/climbing stairs? No 01/06/2015 Does person have difficulty dressing/bathing? No 01/06/2015 Does person have difficulty doing errands alone? No 01/06/2015 Cognitive Status Response Date of Assessm ent Does person have difficulty concentrating/remembering/making decisions? No 01/06/2015 documented as of this encounter Plan of Treatment Upcoming Encounters Date Type Department Care Team (Late Contact Info) Description 10/05/2024 10:00 AM CDT Office Visit [facility] Breast Care - Surgery [address] [place] [address] Satnam Nicole MD [address] [address] 10/12/2024 8:15 AM CDT Video Visit [facility] - Family Medicine [address] [facility] [address] [place] [address] Porsha Garrido MD [facility] [address] [place] [address] documented as of this encounter Visit Diagnoses Not on filedocumented in this encounter Additional Health Concerns Infection Onset Date Last Indicated Resolved Time COVID-19 Under Investigation 04/01/2020 04/01/2020 04/02/2020 2:40 PM BUMPER MACHINE OPERATOR COVID-19 Confirmed 04/01/2020 04/01/2020 0 4:34 AM BUMPER MACHINE OPERATOR documented as of this encounter Care Teams Picker Packer Relationship Specialty Start Date End Date Porsha Garrido MD [address] [place] [address] PCP - General 01/31/11 Porsha Garrido MD [address] [place] [address] PCP - Attributed-[employer] Commercial 09/13/18 11/01/19 Joselito Gold MD [address] [place] [address] PCP - Attributed-[employer] 07/15/19 08/14/19 Porsha Garrido MD [address] [place] [address] PCP - Attributed-[employer] 08/15/19 07/13/20 Jolie Marrero PA-C [address] [place] [phone] PCP - Attributed-[employer] 07/14/20 08/13/20 Porsha Garrido MD [address] [place] [address] PCP - Attributed-[employer] 08/14/20 12/29/21 Porsha Garrido MD [address] [place] [address] PCP - Attributed-[employer] Commercial 05/16/22 08/31/22 Porsha Garrido MD [address] [place] [address] PCP - Attributed-[employer] Commercial 11/13/22 07/31/24 Porsha Garrido MD [address] [place] [address] PCP - Attributed-Ex[employer] Choice 10/29/16 09/14/17 Carina Rey MD [address] [place] [address] Obstetrics and Gynecology 10/27/11 07/14/20 Gary Burgess MD [address] [place] [address] [place] [address] Gastroenterology 08/22/13 Evelyn García RN Stainless Steel Finisher 01/05/15 06/07/24 Joselito Gold MD [address] [place] [address] Obstetrics and Gynecology 07/15/20 5 Joselito Casarez MD [address] [place] [phone] Hematology and Oncology 09/03/22 05/26/23 Michelle Nogueira, STORE TEAM LEADER-BREAKER MACHINE OPERATOR [address] [place] [address] [place] [address] Nurse Practitioner Nurse Practitioner Adult Health 09/03/22 Paloma Romo Care Coordination Specialist Care Management 12/13/23 12/13/23 Marjorie Weston DO [address] [facility] [address] [place] [phone] Rheumatology 05/31/24 documented as of this encounter
--- OUTSIDE RECORDS SUMMARY | 2024-08-12 19:10 | XMS_ITS | Encounter Summary ---
Author Organization [facility] Address [address] [place] [address] Care Team Providers Care Cdl Driver Name Role Phone Porsha Garrido MD Primary Care Provider Encounter Details Date Type Department Care Team (Late st Contact Info) Description 03/20/2001 Outpatient Historical [facility] [place] [address] [facility] [place] [address] [place] [phone] Deshawn Kitchen MD NO ADDRESS ON FILE Social History Tobacco Use Types Packs/Day Years Used Date Smoking Tobacco: Never Assessed Comments Unknown Sex and Gender Information Value Date Recorded Sex Assigned at Not on file Legal Sex Female 3:08 AM SAP INTEGRATION ARCHITECT Gender Identity Not on file Sexual Orientation Not on file documented as of this encounter Plan of Treatment Upcoming Encounters Date Type Department Care Team (Late st Contact Info) Description 08/24/2024 8:45 AM CDT Appointment [facility] Ultrasound Rupesh [address] [place] [phone] Gary Burgess MD [address] [id number] [place] [address] 06/25/2025 3:10 PM SAP INTEGRATION ARCHITECT Office Visit [facility] Gastroenterology [facility] [address] [place] [address] Gary Burgess MD [address] [id number] [place] [address] 08/08/2025 10:30 AM CDT Office Visit [facility] Neurology [address] [place] [address] Rama De La Paz MD [address] [place] [address] documented as of this encounter Visit Diagnoses Not on filedocumented in this encounter Additional Health Concerns Infection Onset Date Last Indicated Resolved Time R/O C. diff 05/21/2020 05/21/2020 05/21/2020 1:01 PM SAP INTEGRATION ARCHITECT R/O C. diff 10/31/2021 10/30/2021 10/31/2021 3:51 PM CDT R/O C. diff 09/01/2022 08/31/2022 09/01/2022 5:17 PM CDT documented as of this encounter Care Teams Cdl Driver Relationship Specialty Start Date End Date Porsha Garrido MD [address] [place] [address] PCP - General 03/04/09 documented as of this encounter
--- OUTSIDE RECORDS SUMMARY | 2024-08-12 19:10 | XMS_ITS | Encounter Summary ---
Author Organization [facility] Address [address] [place] [address] Care Team Providers Care Puppet Developer Name Role Phone Porsha Garrido MD Primary Care Provider Encounter Details Date Type Department Care Team (Late st Contact Info) Description 06/29/2005 Outpatient Historical [facility] [place] [address] [facility] [place] [phone] Deshawn Kitchen MD NO ADDRESS ON FILE Social History Tobacco Use Types Packs/Day Years Used Date Smoking Tobacco: Never Assessed Comments Unknown Sex and Gender Information Value Date Recorded Sex Assigned at Not on file Legal Sex Female 3:08 AM TURRET LATHE MACHINIST Gender Identity Not on file Sexual Orientation Not on file documented as of this encounter Plan of Treatment Upcoming Encounters Date Type Department Care Team (Late st Contact Info) Description 08/24/2024 8:45 AM CDT Appointment [facility] Ultrasound Rupesh [address] [place] [phone] Gary Burgess MD [address] [id number] [place] [address] 06/25/2025 3:10 PM TURRET LATHE MACHINIST Office Visit [facility] Gastroenterology [facility] [address] [place] [address] Gary Burgess MD [address] [id number] [place] [address] 08/08/2025 10:30 AM CDT Office Visit [facility] Neurology [address] [place] [address] Rama De La Paz MD [address] [place] [address] documented as of this encounter Visit Diagnoses Not on filedocumented in this encounter Additional Health Concerns Infection Onset Date Last Indicated Resolved Time R/O C. diff 05/21/2020 05/21/2020 05/21/2020 1:01 PM TURRET LATHE MACHINIST R/O C. diff 10/31/2021 10/30/2021 10/31/2021 3:51 PM CDT R/O C. diff 09/01/2022 08/31/2022 09/01/2022 5:17 PM CDT documented as of this encounter Care Teams Puppet Developer Relationship Specialty Start Date End Date Porsha Garrido MD [address] [place] [address] PCP - General 03/04/09 documented as of this encounter
--- OUTSIDE RECORDS SUMMARY | 2024-08-12 19:10 | XMS_ITS | Encounter Summary ---
Author Organization [facility] Address [address] [place] [address] Care Team Providers Care Early Childhood Education Specialist Name Role Phone Porsha Garrido MD Primary Care Provider Encounter Details Date Type Department Care Team (Late st Contact Info) Description 07/31/2004 Outpatient Historical [facility] [place] [address] [facility] [place] [address] Deshawn Kitchen MD NO ADDRESS ON FILE Social History Tobacco Use Types Packs/Day Years Used Date Smoking Tobacco: Never Assessed Comments Unknown Sex and Gender Information Value Date Recorded Sex Assigned at Not on file Legal Sex Female 3:08 AM SALES AMBASSADOR Gender Identity Not on file Sexual Orientation Not on file documented as of this encounter Last Filed Vital Signs Vital Sign Reading Time Taken Comments Blood Pressure - - Pulse - - Temperature - - Respiratory Rate - - Oxygen Saturation - - Inhaled Oxygen Concentration - - Weight 48.3 kg (106 lb 6 oz) 07/31/2004 9:12 AM SALES AMBASSADOR Height 168.3 cm (5' 6.25 ) 07/31/2004 9:12 AM CS T Body Mass Index 17.04 07/31/2004 9:12 AM SALES AMBASSADOR Body Mass Index Percentile 3.83% 07/31/2004 9:1 2 AM SALES AMBASSADOR Growth Chart: CDC (Girls, 2- 20 Years) documented in this encounter Plan of Treatment Upcoming Encounters Date Type Department Care Team (Late st Contact Info) Description 08/24/2024 8:45 AM CDT Appointment [facility] Ultrasound [place] [address] [facility] [address] [place] [address] Gary Burgess MD [address] [id number] [place] [address] 06/25/2025 3:10 PM SALES AMBASSADOR Office Visit [facility] Gastroenterology [place] [address] [place] [address] Gary Burgess MD [address] [id number] [place] [address] 08/08/2025 10:30 AM CDT Office Visit [facility] Neurology [address] [place] [address] Rama De La Paz MD [address] [place] [address] documented as of this encounter Visit Diagnoses Not on filedocumented in this encounter Additional Health Concerns Infection Onset Date Last Indicated Resolved Time R/O C. diff 05/21/2020 05/21/2020 05/21/2020 1:01 PM SALES AMBASSADOR R/O C. diff 10/31/2021 10/30/2021 10/31/2021 3:51 PM CDT R/O C. diff 09/01/2022 08/31/2022 09/01/2022 5:17 PM CDT documented as of this encounter Care Teams Early Childhood Education Specialist Relationship Specialty Start Date End Date Porsha Garrido MD [address] [place] [address] [place] [address] PCP - General 03/04/09 documented as of this encounter
--- OUTSIDE RECORDS SUMMARY | 2024-08-12 19:10 | XMS_ITS | Encounter Summary ---
Author Organization [facility] Address [address] [place] [address] Care Team Providers Care Card Tender Name Role Phone Porsha Garrido MD Primary Care Provider Encounter Details Date Type Department Care Team (Late st Contact Info) Description 10/13/2005 Outpatient Historical [facility] [place] [address] [facility] [place] [phone] Deshawn Kitchen MD NO ADDRESS ON FILE Social History Tobacco Use Types Packs/Day Years Used Date Smoking Tobacco: Never Assessed Comments Unknown Sex and Gender Information Value Date Recorded Sex Assigned at Not on file Legal Sex Female 3:08 AM ASSISTANT IMPORT MANAGER Gender Identity Not on file Sexual Orientation Not on file documented as of this encounter Plan of Treatment Upcoming Encounters Date Type Department Care Team (Late st Contact Info) Description 08/24/2024 8:45 AM CDT Appointment [facility] Ultrasound Rupesh [address] [place] [phone] Gary Burgess MD [address] [id number] [place] [address] 06/25/2025 3:10 PM ASSISTANT IMPORT MANAGER Office Visit [facility] Gastroenterology [facility] [address] [place] [address] Gary Burgess MD [address] [id number] [place] [address] 08/08/2025 10:30 AM CDT Office Visit [facility] Neurology [address] [place] [address] Rama De La Paz MD [address] [place] [address] documented as of this encounter Visit Diagnoses Not on filedocumented in this encounter Additional Health Concerns Infection Onset Date Last Indicated Resolved Time R/O C. diff 05/21/2020 05/21/2020 05/21/2020 1:01 PM ASSISTANT IMPORT MANAGER R/O C. diff 10/31/2021 10/30/2021 10/31/2021 3:51 PM CDT R/O C. diff 09/01/2022 08/31/2022 09/01/2022 5:17 PM CDT documented as of this encounter Care Teams Card Tender Relationship Specialty Start Date End Date Porsha Garrido MD [address] [place] [address] PCP - General 03/04/09 documented as of this encounter
--- OUTSIDE RECORDS SUMMARY | 2024-08-12 19:10 | XMS_ITS | Encounter Summary ---
Author Organization [facility] Address [address] [place] [address] Care Team Providers Care Editor Publications Name Role Phone Porsha Garrido MD Primary Care Provider Encounter Details Date Type Department Care Team (Late st Contact Info) Description 12/26/1998 Outpatient Historical [facility] Pediatrics [place] [address] [facility] [place] [address] Brayan Solitario MD [facility] [address] Social History Tobacco Use Types Packs/Day Years Used Date Smoking Tobacco: Never Assessed Comments Unknown Sex and Gender Information Value Date Recorded Sex Assigned at Not on file Legal Sex Female 3:08 AM LOG PROCESSOR OPERATOR Gender Identity Not on file Sexual Orientation Not on file documented as of this encounter Plan of Treatment Upcoming Encounters Date Type Department Care Team (Late st Contact Info) Description 08/24/2024 8:45 AM CDT Appointment [facility] Cristian Goddard [address] [facility] [address] [place] [address] Gary Burgess MD [address] [facility] [place] [address] 06/25/2025 3:10 PM LOG PROCESSOR OPERATOR Office Visit [facility] Gastroenterology [place] [address] [place] [address] Gary Burgess MD [address] [id number] [place] [address] 08/08/2025 10:30 AM CDT Office Visit [facility] Neurology [facility] [address] [place] [address] Rama De La Paz MD [address] [place] [address] documented as of this encounter Visit Diagnoses Not on filedocumented in this encounter Additional Health Concerns Infection Onset Date Last Indicated Resolved Time R/O C. diff 05/21/2020 05/21/2020 05/21/2020 1:01 PM LOG PROCESSOR OPERATOR R/O C. diff 10/31/2021 10/30/2021 10/31/2021 3:51 PM CDT R/O C. diff 09/01/2022 08/31/2022 09/01/2022 5:17 PM CDT documented as of this encounter Care Teams Editor Publications Relationship Specialty Start Date End Date Porsha Garrido MD [address] [place] [address] PCP - General 03/04/09 documented as of this encounter
--- OUTSIDE RECORDS SUMMARY | 2024-08-12 19:10 | XMS_ITS | Encounter Summary ---
Author Organization [facility] Address [address] [place] [address] Care Team Providers Care Helper Animal Laboratory Name Role Phone Porsha Garrido MD Primary Care Provider Encounter Details Date Type Department Care Team (Late st Contact Info) Description 03/27/1999 Outpatient Historical [facility] Pediatrics [place] [address] [facility] [place] [address] Ally Keller MD [address] [facility] [address] [place] [address] Social History Tobacco Use Types Packs/Day Years Used Date Smoking Tobacco: Never Assessed Comments Unknown Sex and Gender Information Value Date Recorded Sex Assigned at Not on file Legal Sex Female 3:08 AM JAVA J2EE APPLICATION DEVELOPER Gender Identity Not on file Sexual Orientation Not on file documented as of this encounter Plan of Treatment Upcoming Encounters Date Type Department Care Team (Late st Contact Info) Description 08/24/2024 8:45 AM CDT Appointment [facility] Cristian Grull[place]wood 801 [facility] [address] [place] [address] Gary Burgess MD [address] [facility] [place] [address] 06/25/2025 3:10 PM JAVA J2EE APPLICATION DEVELOPER Office Visit [facility] Gastroenterology [place] [address] [place] [address] Gary Burgess MD [address] [id number] [place] [address] 08/08/2025 10:30 AM CDT Office Visit [facility] Neurology [facility] [address] [place] [address] Rama De La Paz MD [address] [place] [address] documented as of this encounter Visit Diagnoses Not on filedocumented in this encounter Additional Health Concerns Infection Onset Date Last Indicated Resolved Time R/O C. diff 05/21/2020 05/21/2020 05/21/2020 1:01 PM JAVA J2EE APPLICATION DEVELOPER R/O C. diff 10/31/2021 10/30/2021 10/31/2021 3:51 PM CDT R/O C. diff 09/01/2022 08/31/2022 09/01/2022 5:17 PM CDT documented as of this encounter Care Teams Helper Animal Laboratory Relationship Specialty Start Date End Date Porsha Garrido MD [address] [place] [address] [place] [address] PCP - General 03/04/09 documented as of this encounter
--- OUTSIDE RECORDS SUMMARY | 2024-08-12 19:10 | XMS_ITS | Encounter Summary ---
Author Organization [facility] Address [address] [place] [address] Care Team Providers Care Ammunition Assembly Laborer Name Role Phone Porsha Garrido MD Primary Care Provider Encounter Details Date Type Department Care Team (Late st Contact Info) Description 07/09/1998 Outpatient Historical [facility] [place] [address] [facility] [place] [address] Deshawn Kitchen MD NO ADDRESS ON FILE Social History Tobacco Use Types Packs/Day Years Used Date Smoking Tobacco: Never Assessed Comments Unknown Sex and Gender Information Value Date Recorded Sex Assigned at Not on file Legal Sex Female 3:08 AM ART EDUCATION PROFESSOR Gender Identity Not on file Sexual Orientation Not on file documented as of this encounter Plan of Treatment Upcoming Encounters Date Type Department Care Team (Late st Contact Info) Description 08/24/2024 8:45 AM CDT Appointment [facility] Ultrasound Rupesh [address] [place] [address] Gary Burgess MD [address] [id number] [place] [address] 06/25/2025 3:10 PM ART EDUCATION PROFESSOR Office Visit [facility] Gastroenterology [facility] [address] [place] [address] Gary Burgess MD [address] [id number] [place] [address] 08/08/2025 10:30 AM CDT Office Visit [facility] Neurology [address] [place] [address] Rama De La Paz MD [address] [place] [address] documented as of this encounter Visit Diagnoses Not on filedocumented in this encounter Additional Health Concerns Infection Onset Date Last Indicated Resolved Time R/O C. diff 05/21/2020 05/21/2020 05/21/2020 1:01 PM ART EDUCATION PROFESSOR R/O C. diff 10/31/2021 10/30/2021 10/31/2021 3:51 PM CDT R/O C. diff 09/01/2022 08/31/2022 09/01/2022 5:17 PM CDT documented as of this encounter Care Teams Ammunition Assembly Laborer Relationship Specialty Start Date End Date Porsha Garrido MD [address] [place] [address] PCP - General 03/04/09 documented as of this encounter
--- OUTSIDE RECORDS SUMMARY | 2024-08-12 19:10 | XMS_ITS | Encounter Summary ---
Author Organization [facility] Address [address] [place] [address] Care Team Providers Care Mineral Surveying Technician Name Role Phone Porsha Garrido MD Primary Care Provider [phone] Carina Rey MD Unavailable Unavailable Gary Burgess MD Unavailable [phone] Evelyn García RN Unavailable [phone] Porsha Garrido MD Unavailable [phone] Joselito Gold MD Unavailable [phone] Porsha Garrido MD Unavailable [phone] Joselito Gold MD Unavailable [phone] Jolie Marrero PA-C Unavailable [phone] Porsha Garrido MD Unavailable [phone] Porsha Garrido MD Unavailable [phone] Joselito Casarez MD Unavailable Unavailable Michelle Nogueira MOTHER TESTER-LITIGATION MANAGER Unavailable [phone] Porsha Garrido MD Unavailable [phone] Paloma Romo Unavailable Marjorie Weston DO Unavailable Porsha Garrido MD Unavailable Encounter Details Date Type Department Care Team (Late Contact Info) Description 10/05/2012 [facility] Outpatient Visit [facility] [address] [place] [address] Unknown, Provider Social History Tobacco Use Types Packs/Day Years [...] Description 10/05/2024 10:00 AM CDT Office Visit [facility] Breast Care - Surgery [address] [place] [phone] Satnam Nicole MD [address] [place] [address] [phone] 10/12/2024 8:15 AM CDT Video Visit [facility] Medical Group - Family Medicine [address] [place] [address] Porsha Garrido MD [address] [place] [address] documented as of this encounter Visit Diagnoses Not on filedocumented in this encounter Additional Health Concerns Infection Onset Date Last Indicated Resolved Time COVID-19 Under Investigation 04/01/2020 04/01/2020 04/02/2020 2:40 PM WORM FARM LABORER COVID-19 Confirmed 04/01/2020 04/01/2020 0 4:34 AM WORM FARM LABORER documented as of this encounter Care Teams Mineral Surveying Technician Relationship Specialty Start Date End Date Porsha Garrido MD [address] [place] [address] PCP - General 01/31/11 Porsha Garrido MD [address] [place] [address] 29818 PCP - Attributed-[employer] Commercial 09/13/18 11/01/19 Joselito Gold MD [address] [place] [address] PCP - Attributed-[employer] 07/15/19 08/14/19 Porsha Garrido MD [address] [place] [address] 12870 PCP - Attributed-[employer] 08/15/19 07/13/20 Jolie Marrero PA-C [address] [place] [address] [phone] PCP - Attributed-[employer] 07/14/20 08/13/20 Porsha Garrido MD [address] [place] [address] 83209 PCP - Attributed-[employer] 08/14/20 12/29/21 Porsha Garrido MD [address] [place] [address] 20957 PCP - Attributed-[employer] Commercial 05/16/22 08/31/22 Porsha Garrido MD [address] [place] [address] [place] [address] PCP - Attributed-[employer] Commercial 11/13/22 07/31/24 Porsha Garrido MD [address] [place] [address] 47473 PCP - Attributed-[employer] 10/29/16 09/14/17 Carina Rey MD [address] [place] [address] [address] [place] [address] Obstetrics and Gynecology 10/27/11 07/14/20 Gary Burgess MD [address] [place] [address] [address] [place] [address] Gastroenterology 08/22/13 Evelyn García RN Program Services Planner 01/05/15 06/07/24 Joselito Gold MD [address] [place] [address] Obstetrics and Gynecology 07/15/20 5 Joselito Casarez MD [address] [place] [address] [place] [phone] Hematology and Oncology 09/03/22 05/26/23 Michelle Nogueira, MOTHER TESTER-LITIGATION MANAGER [address] [place] [address] [address] [place] [address] Nurse Practitioner Nurse Practitioner Adult Health 09/03/22 Paloma Romo Care Coordination Specialist Care Management 12/13/23 12/13/23 Marjorie Weston DO [address] [place] [address] [address] [place] [address] Rheumatology 05/31/24 documented as of this encounter
--- OUTSIDE RECORDS SUMMARY | 2024-08-12 19:10 | XMS_ITS | Encounter Summary ---
Author Organization [facility] Address [address] [place] [address] Care Team Providers Care It Support Consultant Name Role Phone Porsha Garrido MD Primary Care Provider Encounter Details Date Type Department Care Team (Late st Contact Info) Description 12/02/1997 Outpatient Historical [facility] [address] [facility] [place] [phone] Deshawn Kitchen MD NO ADDRESS ON FILE Social History Tobacco Use Types Packs/Day Years Used Date Smoking Tobacco: Never Assessed Comments Unknown Sex and Gender Information Value Date Recorded Sex Assigned at Not on file Legal Sex Female 3:08 AM HEMOTHERAPIST Gender Identity Not on file Sexual Orientation Not on file documented as of this encounter Plan of Treatment Upcoming Encounters Date Type Department Care Team (Late st Contact Info) Description 08/24/2024 8:45 AM CDT Appointment [facility] Ultrasound [address] [place] [phone] Gary Burgess MD [address] [id number] [place] [address] 06/25/2025 3:10 PM HEMOTHERAPIST Office Visit [facility] Gastroenterology [facility] [address] [place] [address] Gary Burgess MD [address] [id number] [place] [address] 08/08/2025 10:30 AM CDT Office Visit [facility] Neurology [address] [place] [address] Rama De La Paz MD [address] [place] [address] documented as of this encounter Visit Diagnoses Not on filedocumented in this encounter Additional Health Concerns Infection Onset Date Last Indicated Resolved Time R/O C. diff 05/21/2020 05/21/2020 05/21/2020 1:01 PM HEMOTHERAPIST R/O C. diff 10/31/2021 10/30/2021 10/31/2021 3:51 PM CDT R/O C. diff 09/01/2022 08/31/2022 09/01/2022 5:17 PM CDT documented as of this encounter Care Teams It Support Consultant Relationship Specialty Start Date End Date Porsha Garrido MD [address] [place] [address] PCP - General 03/04/09 documented as of this encounter
--- OUTSIDE RECORDS SUMMARY | 2024-08-12 19:10 | XMS_ITS | Encounter Summary ---
Author Organization [facility] Address [address] [place] [address] Care Team Providers Care Life Coach Name Role Phone Porsha Garrido MD Primary Care Provider [phone] Encounter Details Date Type Department Care Team (Late st Contact Info) Description 04/18/2000 Outpatient Historical [facility] [place] [address] [facility] [place] [address] [place] [phone] Deshawn Kitchen MD NO ADDRESS ON FILE Social History Tobacco Use Types Packs/Day Years Used Date Smoking Tobacco: Never Assessed Comments Unknown Sex and Gender Information Value Date Recorded Sex Assigned at Not on file Legal Sex Female 3:08 AM BROADLOOM WEAVER Gender Identity Not on file Sexual Orientation Not on file documented as of this encounter Plan of Treatment Upcoming Encounters Date Type Department Care Team (Late st Contact Info) Description 08/24/2024 8:45 AM CDT Appointment [facility] Ultrasound Rupesh [address] [place] [phone] Gary Burgess MD [address] [id number] [place] [address] 06/25/2025 3:10 PM BROADLOOM WEAVER Office Visit [facility] Gastroenterology [facility] [address] [place] [address] Gary Burgess MD [address] [id number] [place] [address] 08/08/2025 10:30 AM CDT Office Visit [facility] Neurology [address] [place] [address] Rama De La Paz MD [address] [place] [address] documented as of this encounter Visit Diagnoses Not on filedocumented in this encounter Additional Health Concerns Infection Onset Date Last Indicated Resolved Time R/O C. diff 05/21/2020 05/21/2020 05/21/2020 1:01 PM BROADLOOM WEAVER R/O C. diff 10/31/2021 10/30/2021 10/31/2021 3:51 PM CDT R/O C. diff 09/01/2022 08/31/2022 09/01/2022 5:17 PM CDT documented as of this encounter Care Teams Life Coach Relationship Specialty Start Date End Date Porsha Garrido MD [address] [place] [address] PCP - General 03/04/09 documented as of this encounter
--- OUTSIDE RECORDS SUMMARY | 2024-08-12 19:10 | XMS_ITS | Encounter Summary ---
Author Organization [facility] Address [address] [place] [address] Care Team Providers Care Rod Puller And Coiler Name Role Phone Porsha Garrido MD Primary Care Provider Encounter Details Date Type Department Care Team (Late st Contact Info) Description 08/01/2002 Outpatient Historical [facility] [place] [address] [facility] [place] [phone] Deshawn Kitchen MD NO ADDRESS ON FILE Social History Tobacco Use Types Packs/Day Years Used Date Smoking Tobacco: Never Assessed Comments Unknown Sex and Gender Information Value Date Recorded Sex Assigned at Not on file Legal Sex Female 3:08 AM CRITICAL CARE PHYSICIAN Gender Identity Not on file Sexual Orientation Not on file documented as of this encounter Plan of Treatment Upcoming Encounters Date Type Department Care Team (Late st Contact Info) Description 08/24/2024 8:45 AM CDT Appointment [facility] Ultrasound Rupesh [address] [place] [phone] Gary Burgess MD [address] [id number] [place] [address] 06/25/2025 3:10 PM CRITICAL CARE PHYSICIAN Office Visit [facility] Gastroenterology [facility] [address] [place] [address] Gary Burgess MD [address] [id number] [place] [address] 08/08/2025 10:30 AM CDT Office Visit [facility] Neurology [address] [place] [address] Rama De La Paz MD [address] [place] [address] documented as of this encounter Visit Diagnoses Not on filedocumented in this encounter Additional Health Concerns Infection Onset Date Last Indicated Resolved Time R/O C. diff 05/21/2020 05/21/2020 05/21/2020 1:01 PM CRITICAL CARE PHYSICIAN R/O C. diff 10/31/2021 10/30/2021 10/31/2021 3:51 PM CDT R/O C. diff 09/01/2022 08/31/2022 09/01/2022 5:17 PM CDT documented as of this encounter Care Teams Rod Puller And Coiler Relationship Specialty Start Date End Date Porsha Garrido MD [address] [place] [address] PCP - General 03/04/09 documented as of this encounter
--- OUTSIDE RECORDS SUMMARY | 2024-08-12 19:10 | XMS_ITS | Clinical Summary ---
Author Organization [facility] Address [address] [facility] [place] [address] Phone Care Team Providers Care Service Planner Name Role Phone Porsha Garrido MD Primary Care Provider Allergies Active Allergy Reactions Criticality Noted Date Comments Azithromycin Unknown Doxycycline Hcl Rash Low 02/11/2015 Sulfa (Sulfonamide Antibiotics) Other (See Comments),Rash Medium 02/04/2009 Unknown ask Medications valACYclovir 500 mg tablet Take 500 mg by mouth daily. Active cetirizine HCl (ZYRTEC ORAL) Take by mouth. A ctive fluticasone propionate (FLONASE) 50 mcg/spray [place], Suspension nasal inhaler Administer 2 Sprays in each nostril daily. Active ALPRAZolam (XANAX) 0.5 mg tablet TAKE 1 TABLET BY MOUTH THREE TIMES A DAY NEEDED FOR ANXIETY 04/02/20 Active vedolizumab (ENTYVIO IV) Inject by intravenous injection. Active budesonide-formo teroL (SYMBICORT) 80-4.5 mcg/actuation HFA Aerosol Inhaler Take 2 Puffs by inhalation 2 times daily. Active albuterol (PROVENTIL,MEGHA ZECHARIAH) 0.63 mg/3 mL Solution for Nebulization Take 0.63 mg by inhalation one time only. Active hyoscyamine 0.[address] 1 TABLET (0.125 MG) UNDER TONGUE 4 TIMES DAILY NEEDED FOR SPASM. 120 Tablet 5 01/18/20 24 Active DULoxetine (CYMBALTA) 60 mg Capsule, Delayed Release(E.C.) Take 60 mg by mouth daily. 06/15/19 25 Active pantoprazole (PROTONIX) 40 mg Tablet, Delayed Release (E.C.)Indication s:Gastroesophage al reflux disease, unspecified whether esophagitis present Take 1 Tablet (40 mg) by mouth daily. 90 Tablet 3 06/26/19 25 Active baclofen (LIORESAL) 5 mg tablet Take 1 Tablet (5 mg) by mouth 1 time daily as needed for Pain. 30 Tablet 2 08/09/19 25 Active rizatriptan (MAXALT) 10 mg Tablet Take 1 Tablet (10 mg) by mouth one time as needed for Migraine. may repeat in 2 hours; max dose 20mg in 24 hours 9 Tablet 11 08/09/19 25 Active baclofen (LIORESAL) 5 mg tablet Take 1 Tablet (5 mg) by mouth 1 time daily as needed for Pain. 90 Tablet 2 09/08/19 24 025 Discontin ued(Reord er) rizatriptan (MAXALT) 10 mg Tablet Take 1 Tablet (10 mg) by mouth one time as needed for Migraine. may repeat in 2 hours; max dose 20mg in 24 hours 9 Tablet 11 09/08/19 24 025 Discontin ued(Reord er) Active Problems Problem Noted Date Diagnosed Date Microscopic colitis 02/27/2010 Ulcerative colitis 02/27/2010 Abdominal pain, generalized 06/29/2005 Esophageal reflux 11/23/2004 Routine infant or child health check 07/31/2004 Closed fracture of unspecified part of forearm 0 12/09/1995 Varicella without mention of complication 1992 Unspecified asthma(493.90) 12/26/1989 Gastro Procedure Overview (03/29/2011): Procedures EGD, 02/27/10, RSS Colonoscopy, 02/27/10, RSS Bloody stool Encounters Date Type Department Care Team Description 08/08/2024 11:00 AM CDT Office Visit [facility] [address] [facility] [address] [place] [address] Rama De La Paz MD Intractable migraine with aura without status migrainosus (Primary Dx) 08/01/2024 External Device Data STL ABSTRACTION Provider, Abstract 08/01/2024 External Device Data STL ABSTRACTION Provider, Abstract 07/21/2024 External Device Data STL ABSTRACTION Provider, Abstract 07/20/2024 External Device Data STL ABSTRACTION Provider, Abstract 07/18/2024 External Device Data STL ABSTRACTION Provider, Abstract 06/26/2024 2:40 PM TRAFFIC EXPERT Office Visit [facility] Gastroenterology [place] [address] [place] [phone] Gary Burgess MD 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); Gastroesophageal reflux disease, unspecified whether esophagitis present from Last 3 Months Immunizations Immunization Administration Dates Next Due (INFANRIX)(6 WKS-6 YRS) DIPT HERIA, TETANUS TOXOIDS, AND ACCELLULAR PERTUSSIS VACCINE (DTAP), 0.5 ML IM 12/01/1992 (M-M-R II/PRIORIX)(12 MO UP) MEASLES, MUMPS AND RUBELLA VIRUS VACCINE, 0.5 ML IM/SUBCUT 12/01/1992,12/31/1988 (RECOMBIVAX HB/ENGERIX-B)(0- 19 YRS) HEPATITIS B VACCINE 5 MCG/0.5 ML OR 10 MCG/0.5 ML PED OR ADOL 3 DOSE (PF), IM 06/25/1998,01/02/1998,12/02/1997 (SPIKEVAX) (12 YRS UP PRIMAR Y SERIES) COVID-19 VACCINE - MRNA-1273(PF) 100 MCG/0.5 ML IM SUSP 04/03/2021 (TDVAX)(7 YRS UP) TETANUS AN D DIPHTHERIA TOXOIDS, ADSORBED (2 LF OF TETANUS TOXOID AND 2 LF OF DIPHTHERIA TOXOID), 0.5ML (PF), IM 08/01/2002 DTP IM 05/27/1989, 8,1987,08/14 Influenza Vaccine Split 3+ Yrs IM 05/11/2002,09/2000 Meningococcal A Conjugate Vaccine IM 10/13/2005 Poliovirus Vaccine Live Oral 12/01/1992, 05/27/1989,01/01/1988,10/13,1987 Skin Test TB 10/27/2005, 6,08/28/1992,04/14 Family History Medical History Relation Name Comments Healthy Father Pancreatic Cancer Maternal Grandmother Healthy Mother Breast Cancer Other Colon Cancer Neg Hx Relation Name Status Comments Father Maternal Grandmother Mother Other Social History Tobacco Use Types Packs/Day Years Used Date Smoking Tobacco: Never Smokeless Tobacco: Never Alcohol Use Standard Drinks/Week Comments Yes 0 (1 standard drink = 0.6 oz pur e alcohol) maybe once a month Feeling Safe Answer Date Recorded Are you in a relationship wi th someone who hurts you emotionally and/or physically? No 08/12/2023 Comments No Sex and Gender Information Value Date Recorded Sex Assigned at Not on file Legal Sex Female 3:08 AM TRAFFIC EXPERT Gender Identity Not on file Sexual Orientation Not on file Last Filed Vital Signs Vital Sign Reading Time Taken Comments Blood Pressure 102/66 08/08/2024 10:58 AM CDT Pulse 76 08/08/2024 10:58 AM CDT Temperature 36.3 C (97.4 F) 08/12/2023 12:42 PM CDT Respiratory Rate 24 08/12/2023 12:58 PM CDT Oxygen Saturation 98% 08/08/2024 10:58 AM CDT Inhaled Oxygen Concentration - - Weight 88 kg (194 lb) 06/26/2024 2:35 PM TRAFFIC EXPERT Height 172.7 cm (5' 8 ) 06/26/2024 2:35 PM TRAFFIC EXPERT Body Mass Index 29.5 06/26/2024 2:35 PM TRAFFIC EXPERT Plan of Treatment Upcoming Encounters Date Type Department Care Team (Late st Contact Info) Description 08/24/2024 8:45 AM CDT Appointment [facility] [place] [address] [place] [address] Gary Burgess MD [address] [id number] [place] [address] 06/25/2025 3:10 PM TRAFFIC EXPERT Office Visit [facility] [place] [address] [place] [address] Gary Burgess MD [address] [id number] [place] [address] 08/08/2025 10:30 AM CDT Office Visit [facility] Neurology [address] [place] [address] Rama De La Paz MD [address] [place] [address] Health Maintenance Due Date Last Done Comments Pre-Diabetes and Diabetes Screening 1987 HPV/Cotest (21-29) 2008 CERVICAL CANCER SCREENING 2017 HPV/Cotest (30-65) 2017 PAP SMEAR 2017 COVID-19 Vaccine ( season) 2024 04/27/2022, 10/08/2021, 04/03/2021, Additional history exists DTAP/TDAP/TD VACCINES (5 - Td or Tdap) 02/14/2029 02/14/2019, 10/27/2011, 08/01/2002, Additional history exists HEPATITIS B VACCINES Completed 06/25/1998, 01/02/1998, 12/02/1997 INFLUENZA VACCINE Completed 02/25/2024, , 02/06/2022, Additional history exists HPV VACCINES Aged Out No longer eligi ble based on patient's age to complete this topic Insurance [employer] [facility] OPEN ACCESS HMO [employer] [facility] OA PLUS Advance Directives For more information, please contact: [phone] * Full Code (Latest Code Status on File) Date Activated Date Inactivated Comments 08/12/2023 12:00 PM 08/12/2023 3:31 PM * Full Code Date Activated Date Inactivated Comments 02/24/2021 11:31 AM 02/24/2021 2:52 PM * Full Code Date Activated Date Inactivated Comments 06/06/2020 7:55 AM 06/06/2020 11:28 AM * Full Code Date Activated Date Inactivated Comments 01/01/2020 8:02 AM 01/01/2020 11:45 AM * Full Code Date Activated Date Inactivated Comments 02/05/2009 10:42 AM 02/06/2009 2:10 AM Care Teams Service Planner Relationship Specialty Start Date End Date Porsha Garrido MD [address] [place] [address] PCP - General 03/04/09
--- OUTSIDE RECORDS SUMMARY | 2024-08-12 19:10 | XMS_ITS | Encounter Summary ---
Author Organization [facility] Address [address] [place] [address] Care Team Providers Care Cmm Technician Name Role Phone Porsha Garrido MD Primary Care Provider Encounter Details Date Type Department Care Team (Late st Contact Info) Description 04/01/2005 Outpatient [place] [address] [place] [address] ABDOMINAL PAIN UNSPEC SITE (Primary Dx) Social History Tobacco Use Types Packs/Day Years Used Date Smoking Tobacco: Never Assessed Comments Unknown Sex and Gender Information Value Date Recorded Sex Assigned at Not on file Legal Sex Female 3:08 AM NUTRITIONAL SERVICES COOK Gender Identity Not on file Sexual Orientation Not on file documented as of this encounter Plan of Treatment Upcoming Encounters Date Type Department Care Team (Late st Contact Info) Description 08/24/2024 8:45 AM CDT Appointment [facility] [address] [facility] [address] [place] [address] Gary Burgess MD [address] [facility] [place] [address] 06/25/2025 3:10 PM NUTRITIONAL SERVICES COOK Office Visit [facility] Gastroenterology [place] [address] [place] [address] Gary Burgess MD [address] [id number] [place] [address] 08/08/2025 10:30 AM CDT Office Visit [facility] Neurology [address] [place] [address] Rama De La Paz MD [address] [place] [address] documented as of this encounter Visit Diagnoses Diagnosis Abdominal pain, unspecified site- Primary documented in this encounter Additional Health Concerns Infection Onset Date Last Indicated Resolved Time R/O C. diff 05/21/2020 05/21/2020 05/21/2020 1:01 PM NUTRITIONAL SERVICES COOK R/O C. diff 10/31/2021 10/30/2021 10/31/2021 3:51 PM CDT R/O C. diff 09/01/2022 08/31/2022 09/01/2022 5:17 PM CDT documented as of this encounter Care Teams Cmm Technician Relationship Specialty Start Date End Date Porsha Garrido MD [address] [place] [address] PCP - General 03/04/09 documented as of this encounter
--- OUTSIDE RECORDS SUMMARY | 2024-08-12 19:10 | XMS_ITS | Encounter Summary ---
Author Organization [facility] Address [address] [place] [address] Care Team Providers Care Rpg Programmer Name Role Phone Porsha Garrido MD Primary Care Provider Encounter Details Date Type Department Care Team (Late st Contact Info) Description 01/22/2002 Outpatient Historical [facility] [place] [address] [facility] [place] [address] [place] [phone] Deshawn Kitchen MD NO ADDRESS ON FILE Social History Tobacco Use Types Packs/Day Years Used Date Smoking Tobacco: Never Assessed Comments Unknown Sex and Gender Information Value Date Recorded Sex Assigned at Not on file Legal Sex Female 3:08 AM PIT AND AUXILIARIES SUPERVISOR Gender Identity Not on file Sexual Orientation Not on file documented as of this encounter Plan of Treatment Upcoming Encounters Date Type Department Care Team (Late st Contact Info) Description 08/24/2024 8:45 AM CDT Appointment [facility] Ultrasound Rupesh [address] [place] [address] Gary Burgess MD [address] [id number] [place] [address] 06/25/2025 3:10 PM PIT AND AUXILIARIES SUPERVISOR Office Visit [facility] Gastroenterology [facility] [address] [place] [address] Gary Burgess MD [address] [id number] [place] [address] 08/08/2025 10:30 AM CDT Office Visit [facility] Neurology [address] [place] [address] Rama De La Paz MD [address] [place] [address] documented as of this encounter Visit Diagnoses Not on filedocumented in this encounter Additional Health Concerns Infection Onset Date Last Indicated Resolved Time R/O C. diff 05/21/2020 05/21/2020 05/21/2020 1:01 PM PIT AND AUXILIARIES SUPERVISOR R/O C. diff 10/31/2021 10/30/2021 10/31/2021 3:51 PM CDT R/O C. diff 09/01/2022 08/31/2022 09/01/2022 5:17 PM CDT documented as of this encounter Care Teams Rpg Programmer Relationship Specialty Start Date End Date Porsha Garrido MD [address] [place] [address] PCP - General 03/04/09 documented as of this encounter
--- OUTSIDE RECORDS SUMMARY | 2024-08-12 19:10 | XMS_ITS | Encounter Summary ---
Author Organization [facility] Address [address] [place] [address] Care Team Providers Care Inhalation Therapy Aides Teacher Name Role Phone Porsha Garrido MD Primary Care Provider Encounter Details Date Type Department Care Team (Late st Contact Info) Description 05/14/2000 Outpatient Historical [facility] [address] [facility] [place] [address] [place] [phone] Deshawn Kitchen MD NO ADDRESS ON FILE Social History Tobacco Use Types Packs/Day Years Used Date Smoking Tobacco: Never Assessed Comments Unknown Sex and Gender Information Value Date Recorded Sex Assigned at Not on file Legal Sex Female 3:[address]RILL OPERATOR Gender Identity Not on file Sexual Orientation Not on file documented as of this encounter Plan of Treatment Upcoming Encounters Date Type Department Care Team (Late st Contact Info) Description 08/24/2024 8:45 AM CDT Appointment [facility] Ultrasound Rupesh [address] [place] [phone] Gary Burgess MD [address] [id number] [place] [address] 06/25/2025 3:[address] DRILL OPERATOR Office Visit [facility] Gastroenterology [facility] [address] [place] [address] Gary Burgess MD [address] [id number] [place] [address] 08/08/2025 10:30 AM CDT Office Visit [facility] Neurology [address] [place] [address] Rama De La Paz MD [address] [place] [address] documented as of this encounter Visit Diagnoses Not on filedocumented in this encounter Additional Health Concerns Infection Onset Date Last Indicated Resolved Time R/O C. diff 05/21/2020 05/21/2020 05/21/2020 1:[address] DRILL OPERATOR R/O C. diff 10/31/2021 10/30/2021 10/31/2021 3:51 PM CDT R/O C. diff 09/01/2022 08/31/2022 09/01/2022 5:17 PM CDT documented as of this encounter Care Teams Inhalation Therapy Aides Teacher Relationship Specialty Start Date End Date Porsha Garrido MD [address] [place] [address] PCP - General 03/04/09 documented as of this encounter
--- OUTSIDE RECORDS SUMMARY | 2024-08-12 19:10 | XMS_ITS | Encounter Summary ---
Author Organization [facility] Address [address] [facility] [place] [address] Care Team Providers Care Capping Machine Operator Name Role Phone Porsha Garrido MD Primary Care Provider Carina Rey MD Unavailable Unavailable Gary Burgess MD Unavailable [phone] Evelyn García RN Unavailable [phone] Porsha Garrido MD Unavailable [phone] Joselito Gold MD Unavailable [phone] Porsha Garrido MD Unavailable [phone] Joselito Gold MD Unavailable [phone] Jolie Marrero PA-C Unavailable [phone] Porsha Garrido MD Unavailable [phone] Porsha Garrido MD Unavailable [phone] Joselito Casarez MD Unavailable Unavailable Michelle Nogueira FURNACE BUILDER-REGIONAL PROGRAM MANAGER Unavailable [phone] Porsha Garrido MD Unavailable [phone] Paloma Romo Unavailable Marjorie Weston DO Unavailable Porsha Garrido MD Unavailable Encounter Details Date Type Department Care Team (Late Contact Info) Description 10/28/2014 Therapy [facility] [address] [place] [address] Meir Luo DO [address] [place] [phone] Social History Tobacco Use Types Packs/Day Years [...] Description 10/05/2024 10:00 AM CDT Office Visit [facility] Breast Care - Surgery [address] [place] [phone] Satnam Nicole MD [address] [place] [phone] 10/12/2024 8:15 AM CDT Video Visit [facility] - Family Medicine [address] [place] [address] Porsha Garrido MD [address] [place] [address] documented as of this encounter Visit Diagnoses Not on filedocumented in this encounter Additional Health Concerns Infection Onset Date Last Indicated Resolved Time COVID-19 Under Investigation 04/01/2020 04/01/2020 04/02/2020 2:40 PM LOW VOLTAGE TECHNICIAN COVID-19 Confirmed 04/01/2020 04/01/2020 0 4:34 AM LOW VOLTAGE TECHNICIAN documented as of this encounter Care Teams Capping Machine Operator Relationship Specialty Start Date End Date Porsha Garrido MD [address] [place] [address] PCP - General 01/31/11 Porsha Garrido MD [address] [place] [address] PCP - Attributed-[employer] Commercial 09/13/18 11/01/19 Joselito Gold MD [address] [place] [address] PCP - Attributed-[employer] 07/15/19 08/14/19 Porsha Garrido MD [address] [place] [address] PCP - Attributed-[employer] 08/15/19 07/13/20 Jolie Marrero PA-C [address] [place] [phone] PCP - Attributed-[employer] 07/14/20 08/13/20 Porsha Garrido MD [address] [place] [address] PCP - Attributed-[employer] 08/14/20 12/29/21 Porsha Garrido MD [address] [place] [address] PCP - Attributed-[place] Commercial 05/16/22 08/31/22 oPrsha Garrido MD [address] [place] [address] [address] [place] [address] PCP - Attributed-[place] Commercial 11/13/22 07/31/24 Porsha Garrido MD [address] [place] [address] [place] [address] PCP - Attributed-[employer] 10/29/16 09/14/17 Carina Rey MD [address] [place] [address] [place] [address] Obstetrics and Gynecology 10/27/11 07/14/20 Gary Burgess MD [address] [place] [address] [address] [place] [address] Gastroenterology 08/22/13 Evelyn García RN Cable Lacer 01/05/15 06/07/24 Joselito Gold MD [address] [place] [address] Obstetrics and Gynecology 07/15/20 5 Joselito Casarez MD [address] [place] [phone] Hematology and Oncology 09/03/22 05/26/23 Michelle Nogueira APRN-REGIONAL PROGRAM MANAGER [address] [place] [address] [address] [place] [address] Nurse Practitioner Nurse Practitioner Adult Health 09/03/22 Paloma Romo Care Coordination Specialist Care Management 12/13/23 12/13/23 Marjorie [place] DO [address] [place], [place] [address] [address] [place] [address] Rheumatology 05/31/24 documented as of this encounter
--- OUTSIDE RECORDS SUMMARY | 2024-08-12 19:10 | XMS_ITS | Encounter Summary ---
Author Organization [facility] Address [address] [place] [address] Care Team Providers Care Awning Hanger Supervisor Name Role Phone Porsha Garrido MD Primary Care Provider Encounter Details Date Type Department Care Team (Late st Contact Info) Description 06/23/1999 Outpatient Historical [facility] [address] [facility] [place] [address] [place] [address] Deshawn Kitchen MD NO ADDRESS ON FILE Social History Tobacco Use Types Packs/Day Years Used Date Smoking Tobacco: Never Assessed Comments Unknown Sex and Gender Information Value Date Recorded Sex Assigned at Not on file Legal Sex Female 3:08 AM TRUCK CATERER Gender Identity Not on file Sexual Orientation Not on file documented as of this encounter Plan of Treatment Upcoming Encounters Date Type Department Care Team (Late st Contact Info) Description 08/24/2024 8:45 AM CDT Appointment [facility] Ultrasound Rupesh [address] [place] [address] Gary Burgess MD [address] [id number] [address] 06/25/2025 3:10 PM TRUCK CATERER Office Visit [facility] Gastroenterology [facility] [address] [place] [address] Gary Burgess MD [address] [id number] [address] 08/08/2025 10:30 AM CDT Office Visit [facility] Neurology [address] [place] [address] Rama De La Paz MD [address] [address] documented as of this encounter Visit Diagnoses Not on filedocumented in this encounter Additional Health Concerns Infection Onset Date Last Indicated Resolved Time R/O C. diff 05/21/2020 05/21/2020 05/21/2020 1:01 PM TRUCK CATERER R/O C. diff 10/31/2021 10/30/2021 10/31/2021 3:51 PM CDT R/O C. diff 09/01/2022 08/31/2022 09/01/2022 5:17 PM CDT documented as of this encounter Care Teams Awning Hanger Supervisor Relationship Specialty Start Date End Date Porsha Garrido MD [address] [place] [address] PCP - General 03/04/09 documented as of this encounter
--- OUTSIDE RECORDS SUMMARY | 2024-08-12 19:10 | XMS_ITS | Encounter Summary ---
Author Organization [facility] Address [address] [place] [address] Care Team Providers Care Verifying Machine Operator Name Role Phone Porsha Garrido MD Primary Care Provider [phone] Encounter Details Date Type Department Care Team (Latest Contact Info) Description 07/23/2008 Outpatient Historical [facility] Gilbert Cummings MD NO ADDRESS ON FILE Lumbago; Unspecified Asthma; Esophageal Reflux Social History Tobacco Use Types Packs/Day Years Used Date Smoking Tobacco: Never Assessed Comments Unknown Sex and Gender Information Value Date Recorded Sex Assigned at Not on file Legal Sex Female 3:08 AM FOREIGN CLERK Gender Identity Not on file Sexual Orientation Not on file documented as of this encounter Plan of Treatment Upcoming Encounters Date Type Department Care Team (Late st Contact Info) Description 08/24/2024 8:45 AM CDT Appointment [facility] [place] [address] [place] [facility] [address] [place] [address] Gary Burgess MD [address] [id number] [place] [address] 06/25/2025 3:10 PM FOREIGN CLERK Office Visit [facility] Gastroenterology [facility] [address] [place] [address] Gary Burgess MD [address] [id number] [place] [address] 08/08/2025 10:30 AM CDT Office Visit [facility] [address] [place] [address] Rama De La Paz MD [address] [facility] [address] [place] [address] documented as of this encounter Visit Diagnoses Diagnosis Lumbago Unspecified asthma(493.90) Unspecified asthma Esophageal reflux documented in this encounter Additional Health Concerns Infection Onset Date Last Indicated Resolved Time R/O C. diff 05/21/2020 05/21/2020 05/21/2020 1:01 PM FOREIGN CLERK R/O C. diff 10/31/2021 10/30/2021 10/31/2021 3:51 PM CDT R/O C. diff 09/01/2022 08/31/2022 09/01/2022 5:17 PM CDT documented as of this encounter Care Teams Verifying Machine Operator Relationship Specialty Start Date End Date Porsha Garrido MD [address] [place] [address] PCP - General 03/04/09 documented as of this encounter
--- OUTSIDE RECORDS SUMMARY | 2024-08-12 19:10 | XMS_ITS | Encounter Summary ---
Author Organization [facility] Address [address] [facility] [place] [address] Care Team Providers Care Alignment Mechanic Name Role Phone Porsha Garrido MD Primary Care Provider [phone] Carina Rey MD Unavailable Unavailable Gary Burgess MD Unavailable [phone] Evelyn García RN Unavailable [phone] Porsha Garrido MD Unavailable [phone] Joselito Gold MD Unavailable [phone] Porsha Garrido MD Unavailable [phone] Joselito Gold MD Unavailable [phone] Jolie Marrero PA-C Unavailable [phone] Porsha Garrido MD Unavailable [phone] Porsha Garrido MD Unavailable [phone] Joselito Casarez MD Unavailable Unavailable Michelle Nogueira CONTENT DIRECTOR-FAMILY CONSULTANT Unavailable [phone] Porsha Garrido MD Unavailable [phone] Paloma Romo Unavailable Marjorie [place] DO Unavailable Porsha Garrido MD Unavailable Encounter Details Date Type Department Care Team (Late Contact Info) Description 09/30/2014 Therapy Visit [facility]TERNAL [facility] DEPT Unknown, Provider Social History Tobacco Use Types [...] Description 10/05/2024 10:00 AM CDT Office Visit [facility] Breast Care - Surgery [address] [place] [phone] Satnam Nicole MD [address] [place] [phone] 10/12/2024 8:15 AM CDT Video Visit [facility] - Family Medicine [address] [place] [address] Porsha Garrido MD [address] [place] [address] [phone] documented as of this encounter Visit Diagnoses Not on filedocumented in this encounter Additional Health Concerns Infection Onset Date Last Indicated Resolved Time COVID-19 Under Investigation 04/01/2020 04/01/2020 04/02/2020 2:40 PM SORTING AND FOLDING SUPERVISOR COVID-19 Confirmed 04/01/2020 04/01/2020 0 4:34 AM SORTING AND FOLDING SUPERVISOR documented as of this encounter Care Teams Alignment Mechanic Relationship Specialty Start Date End Date Porsha Garrido MD [address] [place] [address] [phone] PCP - General 01/31/11 Porsha Garrido MD [address] [place] [address] PCP - Attributed-[employer] Commercial 09/13/18 11/01/19 Joselito Gold MD [address] [place] [address] PCP - Attributed-[employer] 07/15/19 08/14/19 Porsha Garrido MD [address] [place] [address] PCP - Attributed-[employer] 08/15/19 07/13/20 Jolie Marrero PA-C [address] [place] [phone] PCP - Attributed-[employer] 07/14/20 08/13/20 Porsha Garrido MD [address] [place] [address]175 PCP - Attributed-[employer] 08/14/20 12/29/21 Porsha Garrido MD [address] [place] [address] PCP - Attributed-[place] Commercial 05/16/22 08/31/22 Porsha Garrido MD [address] [place] [address] 51865 PCP - Attributed-[place] Commercial 11/13/22 07/31/24 Porsha Garrido MD [address] [place] [address] [address] [place] [address] PCP - Attributed-Exclusive Choice 10/29/16 09/14/17 Carina Rey MD [address] [place] [address] [place] [address] Obstetrics and Gynecology 10/27/11 07/14/20 Gary Burgess MD [address] [place] [address] [address] [place] [address] Gastroenterology 08/22/13 Evelyn García RN Booth Cleaner 01/05/15 06/07/24 Joselito Gold MD [address] [place] [address] Obstetrics and Gynecology 07/15/20 5 Joselito Casarez MD [address] [place] [phone] Hematology and Oncology 09/03/22 05/26/23 Michelle Nogueira, CONTENT DIRECTOR-FAMILY CONSULTANT [address] [place] [address] [address] [place] [address] Nurse Practitioner Nurse Practitioner Adult Health 09/03/22 Paloma Romo Care Coordination Specialist Care Management 12/13/23 12/13/23 Marjorie [place] DO [address] [place] [address] 200 [place] [phone] Rheumatology 05/31/24 documented as of this encounter
--- OUTSIDE RECORDS SUMMARY | 2024-08-12 19:10 | XMS_ITS | Encounter Summary ---
Author Organization [facility] Address [address] [place] [address] Care Team Providers Care Database Consultant Name Role Phone Porsha Garrido MD Primary Care Provider [phone] Encounter Details Date Type Department Care Team (Late st Contact Info) Description 08/15/2001 Outpatient Historical [facility] [address] [facility] [place] [phone] Deshawn Kitchen MD NO ADDRESS ON FILE Social History Tobacco Use Types Packs/Day Years Used Date Smoking Tobacco: Never Assessed Comments Unknown Sex and Gender Information Value Date Recorded Sex Assigned at Not on file Legal Sex Female 3:08 AM CLAM BED WORKER Gender Identity Not on file Sexual Orientation Not on file documented as of this encounter Plan of Treatment Upcoming Encounters Date Type Department Care Team (Late st Contact Info) Description 08/24/2024 8:45 AM CDT Appointment [facility] Ultrasound Rupesh [address] [place] [phone] Gary Burgess MD [address] [id number] [place] [address] 06/25/2025 3:10 PM CLAM BED WORKER Office Visit [facility] Gastroenterology [facility] [address] [place] [address] Gary Burgess MD [address] [id number] [place] [address] 08/08/2025 10:30 AM CDT Office Visit [facility] Neurology [address] [place] [address] Rama De La Paz MD [address] [place] [address] documented as of this encounter Visit Diagnoses Not on filedocumented in this encounter Additional Health Concerns Infection Onset Date Last Indicated Resolved Time R/O C. diff 05/21/2020 05/21/2020 05/21/2020 1:01 PM CLAM BED WORKER R/O C. diff 10/31/2021 10/30/2021 10/31/2021 3:51 PM CDT R/O C. diff 09/01/2022 08/31/2022 09/01/2022 5:17 PM CDT documented as of this encounter Care Teams Database Consultant Relationship Specialty Start Date End Date Porsha Garrido MD [address] [place] [address] PCP - General 03/04/09 documented as of this encounter
--- OUTSIDE RECORDS SUMMARY | 2024-08-12 19:10 | XMS_ITS | Encounter Summary ---
Author Organization [facility] Address [address] [place] [address] Care Team Providers Care Director Mba Name Role Phone Porsha Garrido MD Primary Care Provider Encounter Details Date Type Department Care Team (Late st Contact Info) Description 06/15/2002 Outpatient Historical [facility] [address] [facility] [place] [address] [place] [phone] Deshawn Kitchen MD NO ADDRESS ON FILE Social History Tobacco Use Types Packs/Day Years Used Date Smoking Tobacco: Never Assessed Comments Unknown Sex and Gender Information Value Date Recorded Sex Assigned at Not on file Legal Sex Female 3:08 AM HOUSING INSPECTOR Gender Identity Not on file Sexual Orientation Not on file documented as of this encounter Plan of Treatment Upcoming Encounters Date Type Department Care Team (Late st Contact Info) Description 08/24/2024 8:45 AM CDT Appointment [facility] Ultrasound Rupesh [address] [place] [phone] Gary Burgess MD [address] [id number] [place] [address] 06/25/2025 3:10 PM HOUSING INSPECTOR Office Visit [facility] Gastroenterology [facility] [address] [place] [address] Gary Burgess MD [address] [id number] [place] [address] 08/08/2025 10:30 AM CDT Office Visit [facility] Neurology [address] [place] [address] Rama De La Paz MD [address] [place] [address] documented as of this encounter Visit Diagnoses Not on filedocumented in this encounter Additional Health Concerns Infection Onset Date Last Indicated Resolved Time R/O C. diff 05/21/2020 05/21/2020 05/21/2020 1:01 PM HOUSING INSPECTOR R/O C. diff 10/31/2021 10/30/2021 10/31/2021 3:51 PM CDT R/O C. diff 09/01/2022 08/31/2022 09/01/2022 5:17 PM CDT documented as of this encounter Care Teams Director Mba Relationship Specialty Start Date End Date Porsha Garrido MD [address] [place] [address] PCP - General 03/04/09 documented as of this encounter
--- OUTSIDE RECORDS SUMMARY | 2024-08-12 19:10 | XMS_ITS | Encounter Summary ---
Author Organization [facility] Address [address] [place] [address] Care Team Providers Care Manager Internship Name Role Phone Porsha Garrido MD Primary Care Provider Encounter Details Date Type Department Care Team (Late st Contact Info) Description 03/08/2002 Outpatient Historical [facility] [address] [facility] [place] [address] [place] [phone] Deshawn Kitchen MD NO ADDRESS ON FILE Social History Tobacco Use Types Packs/Day Years Used Date Smoking Tobacco: Never Assessed Comments Unknown Sex and Gender Information Value Date Recorded Sex Assigned at Not on file Legal Sex Female 3:08 AM STEEL MANAGER Gender Identity Not on file Sexual Orientation Not on file documented as of this encounter Plan of Treatment Upcoming Encounters Date Type Department Care Team (Late st Contact Info) Description 08/24/2024 8:45 AM CDT Appointment [facility] Ultrasound Rupesh [address] [place] [phone] Gary Burgess MD [address] [id number] [place] [address] 06/25/2025 3:10 PM STEEL MANAGER Office Visit [facility] Gastroenterology [facility] [address] [place] [address] Gary Burgess MD [address] [id number] [place] [address] 08/08/2025 10:30 AM CDT Office Visit [facility] Neurology [address] [place] [address] Rama De La Paz MD [address] [place] [address] documented as of this encounter Visit Diagnoses Not on filedocumented in this encounter Additional Health Concerns Infection Onset Date Last Indicated Resolved Time R/O C. diff 05/21/2020 05/21/2020 05/21/2020 1:01 PM STEEL MANAGER R/O C. diff 10/31/2021 10/30/2021 10/31/2021 3:51 PM CDT R/O C. diff 09/01/2022 08/31/2022 09/01/2022 5:17 PM CDT documented as of this encounter Care Teams Manager Internship Relationship Specialty Start Date End Date Porsha Garrido MD [address] [place] [address] PCP - General 03/04/09 documented as of this encounter
--- OUTSIDE RECORDS SUMMARY | 2024-08-12 19:10 | XMS_ITS | Encounter Summary ---
Author Organization [facility] Address [address] [place] [address] Care Team Providers Care Director Global Intelligence Name Role Phone Porsha Garrido MD Primary Care Provider [phone] Encounter Details Date Type Department Care Team (Late st Contact Info) Description 08/07/2001 Outpatient Historical [facility] [address] [facility] [place] [address] [place] [phone] Deshawn Kitchen MD NO ADDRESS ON FILE Social History Tobacco Use Types Packs/Day Years Used Date Smoking Tobacco: Never Assessed Comments Unknown Sex and Gender Information Value Date Recorded Sex Assigned at Not on file Legal Sex Female 3:08 AM REAL ESTATE LAWYER Gender Identity Not on file Sexual Orientation Not on file documented as of this encounter Plan of Treatment Upcoming Encounters Date Type Department Care Team (Late st Contact Info) Description 08/24/2024 8:45 AM CDT Appointment [facility] Ultrasound Rupesh [address] [place] [phone] Gary Burgess MD [address] [id number] [place] [address] 06/25/2025 3:10 PM REAL ESTATE LAWYER Office Visit [facility] Gastroenterology [facility] [address] [place] [address] Gary Burgess MD [address] [id number] [place] [address] 08/08/2025 10:30 AM CDT Office Visit [facility] Neurology [address] [place] [address] Rama De La Paz MD [address] [place] [address] documented as of this encounter Visit Diagnoses Not on filedocumented in this encounter Additional Health Concerns Infection Onset Date Last Indicated Resolved Time R/O C. diff 05/21/2020 05/21/2020 05/21/2020 1:01 PM REAL ESTATE LAWYER R/O C. diff 10/31/2021 10/30/2021 10/31/2021 3:51 PM CDT R/O C. diff 09/01/2022 08/31/2022 09/01/2022 5:17 PM CDT documented as of this encounter Care Teams Director Global Intelligence Relationship Specialty Start Date End Date Porsha Garrido MD [address] [place] [address] PCP - General 03/04/09 documented as of this encounter
--- OUTSIDE RECORDS SUMMARY | 2024-08-12 19:10 | XMS_ITS | Encounter Summary ---
Author Organization [facility] Address [address] [place] [address] Care Team Providers Care Program Schedule Clerk Name Role Phone Porsha Garrido MD Primary Care Provider Encounter Details Date Type Department Care Team (Late st Contact Info) Description 12/10/2003 Outpatient Historical [facility] [address] [facility] [place] [address] [place] [phone] Eduardo Mason MD NO ADDRESS ON FILE Social History Tobacco Use Types Packs/Day Years Used Date Smoking Tobacco: Never Assessed Comments Unknown Sex and Gender Information Value Date Recorded Sex Assigned at Not on file Legal Sex Female 3:08 AM REDUCTION PLANT SUPERVISOR Gender Identity Not on file Sexual Orientation Not on file documented as of this encounter Plan of Treatment Upcoming Encounters Date Type Department Care Team (Late st Contact Info) Description 08/24/2024 8:45 AM CDT Appointment [facility] Ultrasound Rupesh [address] [place], [place] [address]siddharth DIXON [address] [place] [phone] Gary Burgess MD [address] [id number] [place] [address] 06/25/2025 3:10 PM REDUCTION PLANT SUPERVISOR Office Visit [facility] Gastroenterology [place] [address] [place] [phone] Gary Burgess MD [address] [id number] [place] [address] 08/08/2025 10:30 AM CDT Office Visit [facility] Neurology [address] [place] [address] Rama De La Paz MD [address] [place] [address] documented as of this encounter Visit Diagnoses Not on filedocumented in this encounter Additional Health Concerns Infection Onset Date Last Indicated Resolved Time R/O C. diff 05/21/2020 05/21/2020 05/21/2020 1:01 PM REDUCTION PLANT SUPERVISOR R/O C. diff 10/31/2021 10/30/2021 10/31/2021 3:51 PM CDT R/O C. diff 09/01/2022 08/31/2022 09/01/2022 5:17 PM CDT documented as of this encounter Care Teams Program Schedule Clerk Relationship Specialty Start Date End Date Porsha Garrido MD [address] [place] [address] PCP - General 03/04/09 documented as of this encounter
--- OUTSIDE RECORDS SUMMARY | 2024-08-12 19:10 | XMS_ITS | Encounter Summary ---
Author Organization [facility] Address [address] [facility] [place] [address] Care Team Providers Care Organizational Development Manager Name Role Phone Porsha Garrido MD Primary Care Provider [phone] Carina Rey MD Unavailable Unavailable Gary Burgess MD Unavailable [phone] Evelyn García RN Unavailable [phone] Porsha Garrido MD Unavailable [phone] Joselito Gold MD Unavailable [phone] Porsha Garrido MD Unavailable [phone] Joselito Gold MD Unavailable [phone] Jolie Marrero PA-C Unavailable [phone] Porsha Garrido MD Unavailable [phone] Porsha Garrido MD Unavailable [phone] Joselito Casarez MD Unavailable Unavailable Michelle Nogueira CONFERENCE SPECIALIST-CHECKMAN Unavailable [phone] Porsha Garrido MD Unavailable [phone] Paloma Romo Unavailable Marjorie Weston DO Unavailable Porsha Garrido MD Unavailable Encounter Details Date Type Department Care Team (Late Contact Info) Description 09/11/2012 [facility] Outpatient Visit [facility] [address] [place] [address] Unknown, Provider Social History Tobacco Use Types [...] Description 10/05/2024 10:00 AM CDT Office Visit [facility] Breast Care - Surgery [address] [place] [phone] Satnam Nicole MD [address] [place] [phone] 10/12/2024 8:15 AM CDT Video Visit [facility] - Family Medicine [address] [place] [address] Porsha Garrido MD [address] [place] [address] documented as of this encounter Visit Diagnoses Not on filedocumented in this encounter Additional Health Concerns Infection Onset Date Last Indicated Resolved Time COVID-19 Under Investigation 04/01/2020 04/01/2020 04/02/2020 2:40 PM VALIDATION LEADER COVID-19 Confirmed 04/01/2020 04/01/2020 0 4:34 AM VALIDATION LEADER documented as of this encounter Care Teams Organizational Development Manager Relationship Specialty Start Date End Date Porsha Garrido MD [address] [place] [address] PCP - General 01/31/11 Porsha Garrido MD [address] [place] [address] PCP - Attributed-[employer] Commercial 09/13/18 11/01/19 Joselito Gold MD [address] [place] [address] PCP - Attributed-[employer] 07/15/19 08/14/19 Porsha Garrido MD [address] [place] [address] PCP - Attributed-[employer] 08/15/19 07/13/20 Jolie Marrero PA-C [address] [place] [phone] PCP - Attributed-[employer] 07/14/20 08/13/20 Porsha Garrido MD [address] [place] [address] PCP - Attributed-[employer] 08/14/20 12/29/21 Porsha Garrido MD [address] [place] [address] PCP - Attributed-[employer] Commercial 05/16/22 08/31/22 Porsah Garrido MD [address] [place] [address] [place] [address] PCP - Attributed-[employer] Commercial 11/13/22 07/31/24 Porsha Garrido MD [address] [place] [address] PCP - Attributed-[employer] 10/29/16 09/14/17 Carina Rey MD [address] [place] [address] [address] [place] [address] Obstetrics and Gynecology 10/27/11 07/14/20 Gary Burgess MD [address] [place] [address] [address] [place] [address] Gastroenterology 08/22/13 Evelyn García RN Block Sealer 01/05/15 06/07/24 Joselito Gold MD [address] [place] [address] Obstetrics and Gynecology 07/15/20 5 Joselito Casarez MD [address] [place] [address] [place] [phone] Hematology and Oncology 09/03/22 05/26/23 Michelle Nogueira, CONFERENCE SPECIALIST-CHECKMAN [address] [place] [address] [address] [place] [address] Nurse Practitioner Nurse Practitioner Adult Health 09/03/22 Paloma Romo Care Coordination Specialist Care Management 12/13/23 12/13/23 Marjorie Weston DO [address] [place] [address] [address] [place] [address] Rheumatology 05/31/24 documented as of this encounter
--- OUTSIDE RECORDS SUMMARY | 2024-08-12 19:10 | XMS_ITS | Encounter Summary ---
Author Organization [facility] Address [address] [facility] [place] [address] Care Team Providers Care Periodicals Library Assistant Name Role Phone Porsha Garrido MD Primary Care Provider Carina Rey MD Unavailable Unavailable Gary Burgess MD Unavailable [phone] Evelyn Gracía RN Unavailable [phone] Porsha Garrido MD Unavailable [phone] Joselito Gold MD Unavailable [phone] Jolie Marrero PA-C Unavailable [phone] Porsha Garrido MD Unavailable Porsha Garrido MD Unavailable [phone] Joselito Casarez MD Unavailable Unavailable Michelle Nogueira APRN-CLINIC LEAD Unavailable [phone] Porsha Garrido MD Unavailable [phone] Paloma Romo Unavailable [phone] Marjorie Weston DO Unavailable Reason for Visit * Reason Onset Date Comments MEDICATION REFILL 12/05/2019 Encounter Details Date Type Department Care Team ([facility] Contact Info) Description 12/05/2019 Refill [facility] Medical Group - Family Medicine [address] [address] Porsha Garrido MD [address] [place] [address] MEDICATION REFILL Social History Tobacco Use Types Packs/Day Years Used Date Smoking Tobacco: Never Smokeless Tobacco: Never Alcohol Use Standard Drinks/Week Comments Yes 0 (1 standard drink = 0.6 oz pur e alcohol) occasional Sex and Gender Information Value Date Recorded Sex Assigned at Not on file Gender Identity Female 01/16/2019 9:49 AM CDT Sexual Orientation Not on file documented as of this encounter Functional Status Functional Status Response Date of Assess ment Is person deaf or have serious hearing difficult y? No 05/03/2019 Is person blind or have serious difficulty seein g? No 05/03/2019 Does person have serious dif ficulty walking/climbing stairs? No 05/03/2019 Does person have difficulty dressing/bathing? No 05/03/2019 Does person have difficulty doing errands alone? No 05/03/2019 Cognitive Status Response Date of Assessm ent Does person have difficulty concentrating/remembering/making decisions? No 05/03/2019 documented as of this encounter Miscellaneous Notes * Telephone Encounter - She Whitney RN - 12/07/2019 1:03 PM CDT CONTROLLED MEDICATION REFILL REQUEST Medication: Requested Prescriptions Pending Prescriptions Disp Refills ??? ALPRAZolam (XANAX) 0.25 MG tablet 90 tablet 0 Sig: Take 1 tablet by mouth 3 times daily as needed For anxiety. Last Office Visit with PCP: 05/29/2019 Last Video Visit with PCP: Visit date not found Next Appointment with PCP: Visit date not found Follow-up: 12 months Date of last refill: 05/29/2019 documented in this encounter Plan of Treatment Upcoming Encounters Date Type Department Care Team ([facility] Contact Info) Description 10/05/2024 10:00 AM CDT Office Visit [facility] Breast Care - Surgery [address] [place] [phone] Satnam Nicole MD [address] [place] [phone] 10/12/2024 8:15 AM CDT Video Visit [facility] Medical [facility] - Family Medicine [address] [place] [address] Porsha Garrido MD [address] [place] [address] documented as of this encounter Visit Diagnoses Diagnosis JOHN (generalized anxiety disorder) Generalized anxiety disorder documented in this encounter Additional Health Concerns Infection Onset Date Last Indicated Resolved Time COVID-19 Under Investigation 04/01/2020 04/01/2020 04/02/2020 2:40 PM TICKET CHOPPER ASSEMBLER COVID-19 Confirmed 04/01/2020 04/01/2020 0 4:34 AM TICKET CHOPPER ASSEMBLER documented as of this encounter Care Teams Periodicals Library Assistant Relationship Specialty Start Date End Date Porsha Garrido MD [address] [place] [address] PCP - General 01/31/11 Porsha Garrido MD [address] [place] [address] PCP - Attributed-[employer] 08/15/19 07/13/20 Jolie Marrero PA-C [address] [place] [phone] PCP - Attributed-[employer] 07/14/20 08/13/20 Porsha Garrido MD [address] [place] [address] [address] [place] [address] PCP - Attributed-[employer] 08/14/20 12/29/21 Porsha Garrido MD [address] [place] [address] [place] [address] PCP - Attributed-[employer] Commercial 05/16/22 08/31/22 Porsha Garrido MD [address] [place] [address] PCP - Attributed-[employer] Commercial 11/13/22 07/31/24 Carina Rey MD [address] [place] [address] [place] [address] Obstetrics and Gynecology 10/27/11 07/14/20 Gary Burgess MD [address] [facility] [address] [place] [address] Gastroenterology 08/22/13 Evelyn García, RN Roll Picker 01/05/15 06/07/24 Joselito Gold MD [address] [place] [address] Obstetrics and Gynecology 07/15/20 5 Joselito Casarez MD [address] [place] [address] 200 [place] [address] Hematology and Oncology 09/03/22 05/26/23 Michelle Nogueira APRN-CLINIC LEAD [address] [place] [address] [address] [place] [address] Nurse Practitioner Nurse Practitioner Adult Health 09/03/22 Paloma Romo Care Coordination Specialist Care Management 12/13/23 12/13/23 Marjorie Weston DO [address] [facility] [address] [place] [address] Rheumatology 05/31/24 documented as of this encounter
--- OUTSIDE RECORDS SUMMARY | 2024-08-12 19:10 | XMS_ITS | Encounter Summary ---
Author Organization [facility] Address [address] [place] [address] Care Team Providers Care Hand Spring Former Name Role Phone Porsha Garrido MD Primary Care Provider [phone] Encounter Details Date Type Department Care Team (Late st Contact Info) Description 10/23/2001 Outpatient Historical [facility] [place] [address] [facility] [place] [phone] Deshawn Kitchen MD NO ADDRESS ON FILE Social History Tobacco Use Types Packs/Day Years Used Date Smoking Tobacco: Never Assessed Comments Unknown Sex and Gender Information Value Date Recorded Sex Assigned at Not on file Legal Sex Female 3:08 AM WARE FINISHER Gender Identity Not on file Sexual Orientation Not on file documented as of this encounter Plan of Treatment Upcoming Encounters Date Type Department Care Team (Late st Contact Info) Description 08/24/2024 8:45 AM CDT Appointment [facility] Ultrasound Rupesh [address] [place] [phone] Gary Burgess MD [address] [id number] [place] [address] 06/25/2025 3:10 PM WARE FINISHER Office Visit [facility] Gastroenterology [facility] [address] [place] [address] Gary Burgess MD [address] [id number] [place] [address] 08/08/2025 10:30 AM CDT Office Visit [facility] Neurology [address] [place] [address] Rama De La Paz MD [address] [place] [address] documented as of this encounter Visit Diagnoses Not on filedocumented in this encounter Additional Health Concerns Infection Onset Date Last Indicated Resolved Time R/O C. diff 05/21/2020 05/21/2020 05/21/2020 1:01 PM WARE FINISHER R/O C. diff 10/31/2021 10/30/2021 10/31/2021 3:51 PM CDT R/O C. diff 09/01/2022 08/31/2022 09/01/2022 5:17 PM CDT documented as of this encounter Care Teams Hand Spring Former Relationship Specialty Start Date End Date Porsha Garrido MD [address] [place] [address] PCP - General 03/04/09 documented as of this encounter
--- OUTSIDE RECORDS SUMMARY | 2024-08-12 19:10 | XMS_ITS | Encounter Summary ---
Author Organization [facility] Address [address] [place] [address] Care Team Providers Care Cleaner Signs Name Role Phone Porsha Garrido MD Primary Care Provider Encounter Details Date Type Department Care Team (Late st Contact Info) Description 12/12/2003 Outpatient Historical [facility] Pediatrics [facility] [place] [address] [facility] [place] [address] Deshawn Kitchen MD NO ADDRESS ON FILE Social History Tobacco Use Types Packs/Day Years Used Date Smoking Tobacco: Never Assessed Comments Unknown Sex and Gender Information Value Date Recorded Sex Assigned at Not on file Legal Sex Female 3:08 AM PLANT SPECIALIST Gender Identity Not on file Sexual Orientation Not on file documented as of this encounter Last Filed Vital Signs Vital Sign Reading Time Taken Comments Blood Pressure - - Pulse - - Temperature - - Respiratory Rate - - Oxygen Saturation - - Inhaled Oxygen Concentration - - Weight 48.5 kg (107 lb) 12/12/2003 9:13 AM CDT Height 168.9 cm (5' 6.5 ) 12/12/2003 9:13 AM CDT Body Mass Index 17.01 12/12/2003 9:13 AM CDT Body Mass Index Percentile 5.15% 12/12/2003 9:1 3 AM CDT Growth Chart: CDC (Girls, 2- 20 Years) documented in this encounter Plan of Treatment Upcoming Encounters Date Type Department Care Team (Late st Contact Info) Description 08/24/2024 8:[address] [facility] Ultrasound [place] [address] [facility] [address] [place] [address] Gary Burgess MD [address] [id number] [place] [address] 06/25/2025 3:10 PM PLANT SPECIALIST Office Visit [facility] Gastroenterology [place] [address] [place] [address] Gary Burgess MD [address] [id number] [place] [address] 08/08/2025 10:30 AM CDT Office Visit [facility] Neurology [address] [place] [address] Rama De La Paz MD [address] [place] [address] documented as of this encounter Visit Diagnoses Not on filedocumented in this encounter Additional Health Concerns Infection Onset Date Last Indicated Resolved Time R/O C. diff 05/21/2020 05/21/2020 05/21/2020 1:01 PM PLANT SPECIALIST R/O C. diff 10/31/2021 10/30/2021 10/31/2021 3:51 PM CDT R/O C. diff 09/01/2022 08/31/2022 09/01/2022 5:17 PM CDT documented as of this encounter Care Teams Cleaner Signs Relationship Specialty Start Date End Date Porsha Garrido MD [address] [place] [address] [place] [address] PCP - General 03/04/09 documented as of this encounter
--- OUTSIDE RECORDS SUMMARY | 2024-08-12 19:10 | XMS_ITS | Encounter Summary ---
Author Organization [facility] Address [address] [facility] [place] [address] Care Team Providers Care Radio Sportscaster Name Role Phone Porsha Garrido MD Primary Care Provider Gary Burgess MD Unavailable [phone] Evelyn García RN Unavailable [phone] Joselito Gold MD Unavailable [phone] Michelle Nogueira DOCUMENTATION LIAISON-BACK TENDER CYLINDER Unavailable [phone] Porsha Garrido MD Unavailable [phone] Marjorie Weston DO Unavailable Reason for Visit * Reason Onset Date Comments MEDICATION REFILL 04/16/2024 Encounter Details Date Type Department Care Team (Late st Contact Info) Description 04/16/2024 Refill [facility] Medical Group - ADMINISTRATIVE ASSISTANT OFFICE MANAGER [facility] [address] [address] Joselito Gold MD [address] [place] [address] MEDICATION REFILL Social History Tobacco Use Types Packs/Day Years Used Date Smoking Tobacco: Never Passive Smoke Exposure: Never Smokeless Tobacco: Never Alcohol Use Standard Drinks/Week Comments Yes 0 (1 standard drink = 0.6 oz pur e alcohol) Monthly or less AUDIT-C Answer Date Recorded Q1: How often do you have a drink containing alcohol? Never 07/06/2023 Q2: How many drinks containi ng alcohol do you have on a typical day when you are drinking? Patient does not drink Q3: How often do you have si x or more drinks on one occasion? Never 07/06/2023 PHQ-2 Answer Date Recorded Patient Health Questionnaire-2 Score 0 03/14/2024 Hunger Vital Sign Answer Date Recorded Within the past 12 months, y ou worried that your food would run out before you got the money to buy more. Never true 09/11/19 23 Within the past 12 months, t he food you bought just didn't last and you didn't have money to get more. Never true 09/10/2022 Sex and Gender Information Value Date Recorded [...] No 05/03/2019 documented as of this encounter Plan of Treatment Upcoming Encounters Date Type Department Care Team (Late st Contact Info) Description 10/05/2024 10:00 AM CDT Office Visit [facility] Breast Care - Surgery [address] [place] [phone] Satnam Nicole MD [address] [address] 10/12/2024 8:15 AM CDT Video Visit [facility] Medical Group - Family Medicine [address] [place] [address] Porsha Garrido MD [address] [place] [address] [address] [place] [address] documented as of this encounter Visit Diagnoses Not on filedocumented in this encounter Care Teams Radio Sportscaster Relationship Specialty Start Date End Date Porsha Garrido MD [address] [place] [address] 200 [place] [address] PCP - General 01/31/11 Porsha Garrido MD [address] [place] [address] PCP - Attributed-[employer] 11/13/22 07/31/24 Gary Burgess MD [address] [facility] [address] [place] [address] Gastroenterology 08/22/13 Evelyn Gracía RN Wire Stitcher Operator 01/05/15 06/07/24 Joselito Gold MD [address] [place] [address] Obstetrics and Gynecology 07/15/20 5 Michelle Nogueira APRN-BACK TENDER CYLINDER [address] [place] [address] [address] [place] [address] Nurse Practitioner Nurse Practitioner Adult Health 09/03/22 Marjorie Weston DO [address] [place] [phone] Rheumatology 05/31/24 documented as of this encounter
--- OUTSIDE RECORDS SUMMARY | 2024-08-12 19:10 | XMS_ITS | Clinical Summary ---
Author Organization [facility] Address [address] [place] [address] Care Team Providers Care Director Orange Name Role Phone Porsha Garrido MD Primary Care Provider [phone] Gary Burgess MD Unavailable [phone] Michelle Nogueira APRN-INSTALLER SOFT TOP Unavailable [phone] Marjorie Weston DO Unavailable Source Comments [facility],non-owned Affiliates and Associated Physician Practices is amultiple site organization consisting of ambulatory clinics and hospital sitesin [place], [place], [place] and [place]. This disclosure is being madepursuant to the Care Everywhere program and may not contain all information available regarding this patient. Last updated 18.[facility] Allergies Active Allergy Reactions Criticality Noted Date Comments Doxycycline Urticaria,Itching Medium 05/07/2014 Sulfa Drugs Rash Medium 04/17/2010 Azithromycin Dihydrate Diarrhea High 09/17/2009 Medications * Be aware that medications may not be up to date on this document. Alwaysverify current medications with the patient. Medication Sig Dispensed Refills Start Date End Date Status Cetirizine HCl (ZYRTEC PO) Take 1 tablet by mouth once daily Congestion/jodi rgies Active fluticasone propionate (FLONASE) 50 MCG/ACT nasal spray [place] 2 (two) sprays into the nose once daily Active pantoprazole EC (PROTONIX) 40 MG tablet Take 1 (one) tablet by mouth once daily 2 Active albuterol HFA (PROVENTIL; VENTOLIN; PROAIR) 108 (90 Base) MCG/ACT inhalerIndicatio ns:Upper respiratory tract infection, unspecified type Inhale 2 (two) puffs by mouth every 6 hours as needed for Shortness of Breath, Wheezing or Cough 8 g 2 Active baclofen (Lioresal) 5 MG TABS Take 1 (one) tablet by mouth every 12 hours as needed 2 Active budesonide-formo terol (Symbicort) 160-4.5 MCG/ACT inhaler 3 Active vedolizumab (Entyvio) injection 300 (three hundred) mg by Intravenous route once Every 8 weeks Active valACYclovir (Valtrex) 500 MG tablet TAKE 1 TABLET BY MOUTH TWICE A DAY 180 tablet 1 4 Active hydrOXYzine HCl (Atarax) 25 MG tabletIndication s:JOHN (generalized anxiety disorder) Take 1 (one) tablet to 2 (two) tablets by mouth 4 times daily as needed (anxiety) 60 tablet 5 Active Additional Information Patient not taking.Reported on 07/11/2024 ALPRAZolam (Xanax) 0.5 MG tabletIndication s:JOHN (generalized anxiety disorder) Take 1 (one) tablet by mouth 2 times daily as needed for Anxiety 60 tablet 5 Active escitalopram (Lexapro) 10 MG tablet Take 1 (one) tablet by mouth once daily 30 tablet 5 Active ALPRAZolam (Xanax) 0.5 MG tabletIndication s:JOHN (generalized anxiety disorder) Take 1 (one) tablet by mouth 2 times daily as needed for Anxiety 60 tablet 5 08/03/19 25 Discontinued(Reo rder) DULoxetine (Cymbalta) 60 MG capsuleIndicatio ns:Generalized Anxiety Disorder Take 1 (one) capsule by mouth once daily Reasons: Generalized Anxiety Disorder 90 capsule 5 07/18/19 25 Discontinued(Cli nical Decision) DULoxetine (Cymbalta) 30 MG capsule Take 1 (one) capsule by mouth once daily for 7 days 7 capsule 5 07/25/19 25 escitalopram (Lexapro) 10 MG tablet Take 1 (one) tablet by mouth once daily 30 tablet 5 08/10/19 25 Discontinued Active Problems Problem Noted Date Diagnosed Date Fibromyalgia 05/29/2024 ILYA positive 03/14/2024 Migraine with aura and witho ut status migrainosus, not intractable 05/27/2023 Iron deficiency anemia due to chronic blood loss 09/10/2022 Ulcerative rectosigmoiditis without complication 02/12/2022 Overweight (BMI 25.0-29.9) 02/12/2022 JOHN (generalized anxiety disorder) 05/29/2019 Herpes labialis 01/27/2010 Gastro-esophageal reflux disease without esophag itis 11/23/2004 Resolved Problems Problem Noted Date Diagnosed Date Resolved Date Iron deficiency anemia 09/03/202201/24 Leukemia consultation 12/10/20202021 Indication for care in labor or delivery 02/24/2019 05/29/2019 Indication for care in labor and delivery, antepartum 01/28/2019 05/29/2019 Anxiety 11/02/2018 05/29/2019 UTI symptoms 10/26/2017 11/09/2017 Gastrointestinal problem 10/26/2017 Overview (10/26/2017): Overview: Formatting of this note may be different from the original. Procedures EGD, 02/27/10, RSS Colonoscopy, 02/27/10, RSS Sore throat 08/28/2016 05/29/2019 Sore throat 05/29/2016 08/23/2016 Melena 11/24/2015 11/26/2015 Other specified symptoms and signs involving the digestive system and abdomen 11/24/2015 016 Overview (11/24/2015): Overview: Procedures EGD, 02/27/10, RSS Colonoscopy, 02/27/10, RSS Palpitations 09/18/2015 05/29/2019 Chronic ulcerative colitis w ith rectal bleeding 01/05/2015 02/12/2022 Overview (01/14/2015): Dr. Burgess 06/2010 left sided colitis, 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 Harrison/GI 12/2014 (descending and sigmoid colitis) Closed fracture of metatarsal bone 09/25/2014 05/29/2019 Overview (10/26/2017): Low back pain 09/06/2012 11/26/2015 Condyloma of female genitalia 11/09/2011 04/22/2014 Ulcerative colitis without complications 02/27/2010 02/12/2022 Allergic rhinitis 09/12/2009 11/26/2015 HPV (human papilloma virus) anogenital infection 09/12/2009 04/22/2014 ASCUS favoring dysplasia 04/22/200912/2013 Colitis 04/02/2009 11/26/2015 Asthma 10/03/2008 05/29/2019 Screening for condition 05/31/200801/16 Overview (03/14/2018): Adult Abstraction Problem List Screening Dexa Scan (Bone Density): Result: Pap Smear: 09/30/17 negative 10/26/16 negative 09/09/15 negative 08/28/14 negative 08/22/13 negative 05/17/12 negative 04/27/11 negative 04/22/2010 negative 09/12/09 ascus 04/23 colpo 04/09/09 ASCUS, +HPV 01/03/2008 negative 01/03/08 negative 11/25/06 negative Mammogram: Result: CF Test: Result: Screening for condition 01/02/200805/16 Overview (01/03/2008): 11/25/2006 NEG Pt denies hx abn paps Generalized abdominal pain 06/29/2005 0 11/26/2015 Closed fracture of forearm 12/09/1995 0 11/26/2015 Varicella 02/13/1993 09/16/2014 Varicella without complication 02/13/1993 11/26/2015 Uncomplicated asthma 12/26/1989 016 Encounters Date Type Department Care Team Description 08/08/[address] [address] Porsha Garrido MD Med Change Request 08/03/[address] [address] Porsha Garrido MD Refill Request 08/02/[address] [address] Porsha Garrido MD MEDICATION REFILL 07/28/2024 11:08 AM CDT - 07/28/2024 12:59 PM CDT Emergency ER at [address] [address] Brian Baumann MD Near syncope Discharge Disposition: Home or Self Care 07/28/2024 Travel 07/11/2024 8:45 AM SENIOR LOSS CONTROL SPECIALIST Video Visit [address] [address] Porsha Garrido MD JOHN (generalized anxiety disorder) 07/05/[address] [address] Porsha Garrido MD Refill Request 06/30/[address] [address] Porsha Garrido MD Med Change Request 06/15/[address] [address] Porsha Garrido MD Med Change Request 06/08/2024 8:15 AM SENIOR LOSS CONTROL SPECIALIST Video Visit [address] [address] Porsha Garrido MD JOHN (generalized anxiety disorder) ; Ulcerative rectosigmoiditis without complication (CMS/HCC); Fibromyalgia 06/05/2024 8:00 AM SENIOR LOSS CONTROL SPECIALIST Office Visit [facility] - GLASS CLEANER [address] [place] [address] [place] [phone] Karen Ngo, GASPER-INSTALLER SOFT TOP Well woman exam with routine gynecological exam (Primary Dx); Screening for cervical cancer; Vaginal odor 05/29/2024 2:30 PM SENIOR LOSS CONTROL SPECIALIST Office Visit [facility] - Rheumatology [address] [place] [address] [place] [phone] Marjorie Weston, DO Fibromyalgia (Primary Dx) from Last 3 Months Immunizations Name Administration Dates Next Due INFLUENZA VACCINE, TRIV. (AF LURIA, FLUZONE TRIVALENT; 6MO+) (IIV3) 05/11/2002,03/20/2001 COVID MODERNA BIVALENT 12Y+ 50MCG/0.5ML 04/27/2022 Covid Moderna primary monova lent 12+ yr 0.5mL 04/03/2021,08/25/2020,07/28/2020 DPT 12/01/1992, 0,01/01/1988,10/13,1987 DTaP VACCINE IM (6wk-6yrs) 12/01/1992 FLU VACCINE TRI IIV3 SPLIT I M (FLUVIRIN) 03/09/2021 HEP B VACCINE, PED/ADOL 06/25/1998,01/02/1998, INFLUENZA VACCINE 02/27/2018, 6,02/13/2015,02/13,02/09/2012,05/11/2002,03/20/2001 INFLUENZA VACCINE, CELL CULT URE, QUADR. (FLUCELVAX QUADRIVALENT; 6MO+) (CCIIV4) 02/27/2018 INFLUENZA VACCINE, QUADR. (F LUZONE; FLULAVAL; FLUARIX; AFLURIA QUADRIVALENT; 6MO+), 0.5 ML (IIV4) 02/14/2023,02/06/2022,02/01/2020,02/14 INFLUENZA VACCINE, TRIV. (FL UZONE; FLULAVAL; FLUARIX; AFLURIA TRIVALENT; 6MO+), 0.5 ML (IIV3) 02/25/2024 MENINGOCOCAL MENINGITIS 10/13/2005 MENINGOCOCCAL MCV4 10/13/2005 MMR 12/01/1992,12/31/1988 MODERNA SARS-COV-2 COVID-19 VACCINE 0.25ML 10/08/2021 POLIO IPV 05/16/2000,12/01/1992 POLIO OPV 10/14/2011, 3,05/27/1989,12/31,1987,1987 PPD 10/27/2005,10/13/2005 ROTAVIRUS, MONOVALENT 08/28/1992,04/14/1989 TD (AGE 7-ADULT) 08/01/2002 TD VACCINE 08/01/2002 TDAP (7yrs+) 05/05/2019(Deferred: Patient Condition - pt had TDap during ),02/14/2019,10/27/2011 Family History Medical History Relation Name Comments Hypertension Father None Known Maternal Aunt Alzheimer's Disease Maternal Grandmother Hodgkin's lymphoma Maternal Uncle 1 Cancer - Skin, Non Melanoma Mother Hypertension Mother Stroke Mother Cancer - Breast Paternal Aunt 1 None Known Paternal Aunt 2 None Known Paternal Aunt 3 Diabetes Paternal Grandfather Heart Disease Paternal Grandfather Cancer - Pancreatic Paternal Grandmother Cancer - Ovarian Neg Hx Cancer - Uterine Neg Hx Relation Name Status Comments Father Alive Maternal Aunt Maternal Grandfather Maternal Grandmother Maternal Uncle 1 Maternal Uncle 2 Alive Mother Alive Paternal Aunt 1 Paternal Aunt 2 Alive Paternal Aunt 3 Alive Paternal Grandfather Paternal Grandmother Sister 1 Alive Sister 2 Alive Social History Tobacco Use Types Packs/Day Years Used Date Smoking Tobacco: Never Passive Smoke Exposure: Never Smokeless Tobacco: Never Tobacco Cessation:Counseling Given: Yes Alcohol Use Standard Drinks/Week Comments Yes 0 [...] Date Recorded Patient Health Questionnaire-2 Score 0 07/11/2024 Hunger Vital Sign Answer Date Recorded Within [...] AM CDT Sexual Orientation Not on file Last Filed Vital Signs Vital Sign Reading Time Taken Comments Blood Pressure 121/72 07/28/2024 12:00 PM CDT Pulse 71 07/28/2024 12:01 PM CDT Temperature 36.6 C (97.9 F) 07/28/2024 10:13 AM CDT Respiratory Rate 13 07/28/2024 12:01 PM CDT Oxygen Saturation 100% 07/28/2024 11:46 AM CDT Inhaled Oxygen Concentration - - Weight 88.1 kg (194 lb 3.2 oz) 06/05/2024 8:07 A M SENIOR LOSS CONTROL SPECIALIST Height 172.7 cm (5' 8 ) 07/28/2024 10:14 AM CDT Body Mass Index 29.53 06/05/2024 8:07 AM SENIOR LOSS CONTROL SPECIALIST Plan of Treatment Upcoming Encounters Date Type Department Care Team (Late st Contact Info) Description 10/05/2024 10:00 AM CDT Office Visit [facility] - Surgery [address] [place] [phone] Satnam Nicole MD [address] [place] [phone] 10/12/2024 8:15 AM CDT Video Visit [facility] - Family Medicine [address] [place] [phone] Porsha Garrido MD [address] [place] [phone] Health Maintenance Due Date Last Done Comments COVID-19 VACCINE (6 - 2024-25 season) 2024 04/27/2022, 10/08/2021, 04/03/2021, Additional history exists DTAP/TDAP/TD VACCINES (10 - Td or Tdap) 02/14/2029 02/14/2019, 10/27/2011, 08/01/2002, Additional history exists PAP with HPV 06/05/2029 06/05/2024, 05/16, 07/17/2020, Additional history exists ZOSTER VACCINE (1 of 2) 2037 HEPATITIS B VACCINE Completed 06/25/1998, 01/02/1998, 12/02/1997 MENINGOCOCCAL GROUPS A/C/Y/W VACCINE Completed 10/13/2005, 10/13/2005 HIV SCREENING Completed 09/25/2018, 06/2018, 04/28/2011 HEPATITIS C SCREENING Completed 06/11/2020 , 06/11/2020, 09/25/2018, Additional history exists INFLUENZA VACCINE Completed 02/25/2024, , 02/06/2022, Additional history exists DEPRESSION SCREENING Completed 05/29/2024, 05/27/2023, 07/08/2022, Additional history exists HIB VACCINE Aged Out No longer eligi ble based on patient's age to complete this topic HPV VACCINE Aged Out No longer eligi ble based on patient's age to complete this topic MENINGOCOCCAL (Group B) VACCINE SHARED DECISION-MAKING Aged Out No longer eligible based on patient's age to complete this topic PNEUMOCOCCAL VACCINE Aged Out No long er eligible based on patient's age to complete this topic Procedures Procedure Name Priority Date/Time Associated Diagnosis Comments CARDIAC EKG ORDER 07/30/2024 9:0 1 PM CDT HCG BETA BLOOD QUANTITATIVE STAT 07/28/2024 11:50 AM CDT MAGNESIUM BLOOD STAT 07/28/2024 11:50 AM CDT COMPREHENSIVE METABOLIC PANEL STAT 07/28/2024 11:50 AM CDT CBC W AUTO DIFFERENTIAL STAT 07/28/2024 11:50 AM CDT EKG 12-LEAD STAT 07/28/2024 11:15 AM CDT Near syncope PAP IG LB +HPV APTIMA REFLEX 16,18/45 Routine 06/05/2024 8:24 AM SENIOR LOSS CONTROL SPECIALIST Screening for cervical cancer BACTERIAL VAGINOSIS+BARBARA KATLIN Routine 06/05/2024 8:24 AM SENIOR LOSS CONTROL SPECIALIST Vaginal odor HEPATITIS C AB W RFLX VERIFICATION Routine 09/25/2018 10:43 AM CDT Encounter for confirmation of test result with physical examination Other ulcerative colitis with complication Missed period HIV-1 HIV-2 ANTIBODY + HIV P24 AG PANEL Routine 09/25/2018 10:43 AM CDT Encounter for confirmation of test result with physical examination Other ulcerative colitis with complication Missed period from Last 3 Months or Most Recently Relevant to Health Maintenance Results * CARDIAC EKG ORDER (07/30/2024 9:01 PM CDT) Narrative 07/30/2024 9:01 PM CDT Ordered by an unspecified provider. Scanned Document CARDIAC SERVICES ORD ERABLES * (ABNORMAL) CBC W AUTO DIFFERENTIAL (07/28/2024 11:50 AM CDT) WBC 9.6 4.0 - 10.7 x10E9/L 07/28/2024 12:02 PM CDT [facility] RBC Count 4.28 3.90 - 5.20 x10E12/L 07/28/2024 12:02 PM CDT [facility] Hemoglobin 12.8 11.9 - 15.8 g/dL 07/28/2024 12:02 PM CDT [facility] Hematocrit 36.3 34.8 - 46.1 % 07/28/2024 12:02 PM CDT [facility] MCV 84.8 80.0 - 98.0 fL 07/28/2024 12:02 PM CDT [facility] MCH 29.9 26.7 - 33.6 pg 07/28/2024 12:02 PM CDT [facility] MCHC 35.3 31.7 - 36.3 g/dL 07/28/2024 12:02 PM [facility] RDW-CV 12.3 11.3 - 14.8 % 07/28/2024 12:02 PM [facility] Platelet Count 330 150 - 420 x10E9/L 07/28/2024 12:02 PM [facility] MPV 8.9 7.8 - 11.4 fL 07/28/2024 12:02 PM [facility] Neutrophil % 63.2 41.0 - 74.0 % 07/28/2024 12:02 PM [facility] Lymphocyte % 18.8 17.0 - 47.0 % 07/28/2024 12:02 PM [facility] Monocyte % 4.6 3.0 - 11.0 % 07/28/2024 12:02 PM [facility] Eosinophil % 12.3(H) 0.0 - 7.0 % 07/28/2024 12:02 PM [facility] Basophil % 0.8 0.0 - 1.6 % 07/28/2024 12:02 PM [facility] Immature Granulocytes % 0.3 0.0 - 1.0 % 07/28/2024 12:02 PM [facility] Neutrophil Absolute 6.03 1.60 - 7.50 x10E9/L 07/28/2024 12:02 PM [facility] Lymphocyte Absolute 1.80 1.00 - 4.40 x10E9/L 07/28/2024 12:02 PM [facility] Monocyte Absolute 0.44 0.15 - 1.00 x10E9/L 07/28/2024 12:02 PM [facility] Eosinophil Absolute 1.17(H) 0.00 - 0.60 x10E9/L 07/28/2024 12:02 PM [facility] Basophil Absolute 0.08 0.00 - 0.13 x10E9/L 07/28/2024 12:02 PM [facility] Blood BLOOD SPECIMEN / Unknown Venipuncture / Unknown 07/28/2024 11:50 AM CDT 07/28/2024 11:57 AM CDT Brian Baumann MD LAB - HEMATOLOGY ORD ERABLES [facility] [address] [place] [address] * COMPREHENSIVE METABOLIC PANEL (07/28/2024 11:50 AM CDT) Glucose 89 70 - 99 mg/dL 07/28/2024 12:21 PM [facility] Sodium 140 136 - 145 mmol/L 07/28/2024 12:21 PM [facility] Potassium 3.7 3.5 - 5.1 mmol/L 07/28/2024 12:21 PM [facility] Chloride 106 98 - 107 mmol/L 07/28/2024 12:21 PM [facility] CO2 25 22 - 29 mmol/L 07/28/2024 12:21 PM [facility] Calcium 9.2 8.4 - 10.4 mg/dL 07/28/2024 12:21 PM [facility] Anion Gap 9 6 - 16 mmol/L 07/28/2024 12:21 PM [facility] BUN 10 5.3 - 18.7 mg/dL 07/28/2024 12:21 PM [facility] Creatinine 0.69 0.57 - 1.11 mg/dL 07/28/2024 12:21 PM [facility] Alkaline Phosphatase 68 40 - 150 U/L 07/28/2024 12:21 PM [facility] ALT 15 0 - 55 U/L 07/28/2024 12:21 PM [facility] AST 14 5 - 34 U/L 07/28/2024 12:21 PM [facility] Protein Total 7.7 6.4 - 8.3 gm/dL 07/28/2024 12:21 PM [facility] Albumin 4.2 3.4 - 5.0 gm/dL 07/28/2024 12:21 PM [facility] Bilirubin Total 0.4 0.2 - 1.2 mg/dL 07/28/2024 12:21 PM [facility] eGFR by CKD-EPI >90 >=90 mL/min/1.7 3 m2 07/28/2024 12:21 PM CDT [facility] Blood BLOOD SPECIMEN / Unknown Venipuncture / Unknown 07/28/2024 11:50 AM CDT 07/28/2024 11:57 AM CDT Brian Baumann MD LAB - CHEMISTRY MIS CARRASCO Performing Organization Address City/[facility]/ZIP Co de Phone Number [facility] [address] [place] [address] * HCG BETA BLOOD QUANTITATIVE (07/28/2024 11:50 AM CDT) hCG Quantitative <2.42 mIU/mL 07/29/19 12:27 PM CDT [facility] Blood BLOOD SPECIMEN / Unknown Venipuncture / Unknown 07/28/2024 11:50 AM CDT 07/28/2024 11:57 AM CDT Narrative [facility] - 07/28/2024 12:27 PM CDT hCG Reference Range, mIU/mL: Non Females 0-6.0 Perimenopausal Females ages 41-55* 0-7.7 Postmenopausal Females age >55* 0-14 Females, Weeks after Last Menstrual Period 0.2-1 week 5-50 1 - 2 weeks 50-500 2 - 3 weeks 100-5000 3 - 4 weeks 500-10,000 4 - 5 weeks 1000-50,000 5 - 6 weeks 10,000-100,000 6 - 8 weeks 15,000-200,000 2 - 3 months 10,000-100,000 Trophoblastic Disease >100,000 *In higher than expected hCG in females > age 40, a serum FSH >20 IU/L makes unlikely. Brian Baumann MD LAB - CHEMISTRY MIS CARRASCO [facility] [address] [place] [address] * MAGNESIUM BLOOD (07/28/2024 11:50 AM CDT) Magnesium 1.7 1.6 - 2.6 mg/dL 07/28/2024 12:21 PM CDT [facility] Blood BLOOD SPECIMEN / Unknown Venipuncture / Unknown 07/28/2024 11:50 AM CDT 07/28/2024 11:57 AM CDT Brian Baumann MD LAB - CHEMISTRY MIS CARRASCO Performing Organization Address City/[facility]/ZIP Co de Phone Number [facility] [address] [place] [address] * EKG 12-LEAD (07/28/2024 11:15 AM CDT) Ventricular Rate 59 BPM [facility] Atrial Rate 59 BPM [facility] P-R Interval 140 ms [facility] QRS Duration ms 78 ms [facility] Q-T Interval ms 440 ms [facility] QTC Calculation (Bezet) 435 ms [facility] Calculated R [place] -179 degrees [facility] Calculated T [place] -171 degrees [facility] Interpretation EKG Suspect arm lead reversal, interpretation assumes no reversal Sinus bradycardia Right superior axis deviation T wave abnormality, consider inferior ischemia Abnormal ECG When compared with ECG of 06-JUL-2023 11:16, Questionable change in QRS axis T wave inversion now evident in Inferior leads Confirmed by FLAKITA TAPIA, [facility] ([id number]) on 07/30/2024 2:05:41 PM [facility] 07/28/2024 11:1 5 AM CDT 07/30/2024 2:05 PM CDT Brian Baumann MD ECG ORDERABLES [facility] * BACTERIAL VAGINOSIS+BRABARA KATLIN (06/05/2024 8:24 AM SENIOR LOSS CONTROL SPECIALIST) Atopobium vaginae Low - 0 Score [facility] INSURANCE BILL BVAB 2 Low - 0 Score [facility] INSURANCE BILL Megashaera Low - 0 Score [facility] INSURANCE BILL Comment: Calculate total score by adding the 3 individual bacterial vaginosis (BV) marker scores together. Total score is interpreted as follows: Total score 0-1: Indicates the absence of BV. Total score 2: Indeterminate for BV. Additional clinical data should be evaluated to establish a diagnosis. Total score 3-6: Indicates the presence of BV. Barbara albicans KATLIN Negative Negative [facility] INSURANCE BILL Barbara glabrata KATLIN Negative Negative [facility] INSURANCE BILL Microbiology ENTIRE VAGINA / Unknown 06/05/2024 8:24 AM SENIOR LOSS CONTROL SPECIALIST 06/05/2024 Comment:Vaginal Release to p a Narrative [facility] INSURANCE BILL - 06/06/2024 6:07 PM SENIOR LOSS CONTROL SPECIALIST Test(s) 773264- Atopobium vaginae; 614395- BVAB 2; 552058- Megasphaera 1 was developed and its performance characteristics determined by [employer]. It has not been cleared or approved by the Food and Drug Administration. Test(s) 101133-Vfyuaho albicans, KATLIN; 427331-Yskrfmx glabrata, KATLIN was developed and its performance characteristics determined by [employer]. It has not been cleared or approved by the Food and Drug Administration. Performed at: 01 - [address] [id number] Pitch Filler: Sejal Ordoñez MD, Phone: [phone] Karen K Huber DIGITAL COMPUTER SYSTEMS ANALYST-INSTALLER SOFT TOP LAB - MICROBIOLO GY ORDERABLES Performing Organization Address City/State/[facility] Co de Phone Number [facility] INSURANCE BILL [address] [place] [address] * PAP IG LB +HPV APTIMA REFLEX 16,18/45 (06/05/2024 8:24 AM SENIOR LOSS CONTROL SPECIALIST) Diagnosis Comment [facility] Comment:NEGATIVE FOR INTRAEP ITHELIAL LESION OR MALIGNANCY. Specimen Adequacy Comment [facility] INSURANCE B[facility] Comment: Satisfactory for evaluation. Endocervical and/or squamous metaplastic cells (endocervical component) are present. Clinician Provided ICD10 Comment [facility] INSURANCE BILL Comment:Z12.4 Performed by Comment [facility] Comment:Tejas Campbell chnologist (ASCP) Comment . [facility] INSURANCE BILL Note Comment [facility] INSURANCE BILL Comment: The Pap smear is a screening test designed to aid in the detection of premalignant and malignant conditions of the uterine cervix. It is not a diagnostic procedure and should not be used as the sole means of detecting cervical cancer. Both false-positive and false-negative reports do occur. [facility] CPT Code Automation Comment [facility] INSURANCE BILL Comment: This liquid based ThinPrep(R) pap test was screened with the use of an image guided system. Human papillomavirus Aptima Negative Negative [facility] INSURANCE BILL Comment: This nucleic acid amplification test detects fourteen high-risk HPV types (16,18,31,33,35,39,45,51,52,56,58,59,66,68) without differentiation. HPV Genotype Reflexed Comment [facility] INSURANCE BILL Comment:Criteria not met, HP V Genotype not performed. PART OF UTERINE CERVIX / Unknown 06/05/2024 8:24 AM SENIOR LOSS CONTROL SPECIALIST 06/05/2024 Comment:Cervix Release to pa t Narrative [facility] INSURANCE BILL - 06/07/2024 1:08 PM SENIOR LOSS CONTROL SPECIALIST Performed at: 01 - [address] [id number] Pitch Filler: Sejal Ordoñez MD, Phone: [phone] Performed at: [address] - [address] [id number] Pitch Filler: Sejal Ordoñez MD, Phone: [phone] Specimen Comment: [id number] Specimen Comment: No. of containers..01 ThinPrep Vial Karen Ngo DIGITAL COMPUTER SYSTEMS ANALYST-INSTALLER SOFT TOP LAB - PATHOLOGY/ CYTOLOGY ORDERABLES Performing Organization Address City/[facility] Co de Phone Number [facility] INSURANCE BILL [address] [place] [address] * HEPATITIS C AB W RFLX VERIFICATION (09/25/2018 10:43 AM CDT) Hepatitis C Antibody <0.1 0.0 - 0.9 s/co ratio [facility] ACCOUNT BILL Comment:FASTING Blood BLOOD SPECIMEN / Unknown 09/25/2018 10:43 AM CDT 09/25/2018 Narrative Resulting Agency Comment Lab Testing performed at: [facility] [address] [facility] [id number] Lianne Welch MD LAB - CHEMISTRY MIS CARRASCO [facility] ACCOUNT BILL [id number] [place] [address] * HIV-1 HIV-2 ANTIBODY + HIV P24 AG PANEL (09/25/2018 10:43 AM CDT) HIV Screen 4th Generation w Reflex Non Reactive Non Reactive [facility] ACCOUNT BILL Comment:FASTING Blood BLOOD SPECIMEN / Unknown 09/25/2018 10:43 AM CDT 09/25/2018 Narrative Resulting Agency Comment Lab Testing performed at: [facility] [address] [id number] Lianne Welch MD LAB - CHEMISTRY MIS CARRASCO [facility] ACCOUNT BILL [address] [place] [address] from Last 3 Months or Most Recently Relevant to Health Maintenance Advance Directives * Full Code (Latest Code Status on File) Date Activated Date Inactivated Comments 01/05/2015 3:32 AM 01/07/2015 2:46 PM Care Teams Director Orange Relationship Specialty Start Date End Date Porsha Garrido MD [address] [facility] [address] [place] [address] PCP - General 01/31/11 Gary Burgess MD [address] [facility] [address] [place] [address] Gastroenterology 08/22/13 Michelle Nogueira, DIGITAL COMPUTER SYSTEMS ANALYST-INSTALLER [employer] [address] [place] [address] [address] [place] [address] Nurse Practitioner Nurse Practitioner Adult Health 09/03/22 Marjorie Weston DO [address] [place] [address] [address] [place] [address] Rheumatology 05/31/24
--- OUTSIDE RECORDS SUMMARY | 2024-08-12 19:10 | XMS_ITS | Encounter Summary ---
Author Organization [facility] Address [address] [place] [address] Care Team Providers Care Printed Circuit Board Designer Name Role Phone Porsha Garrido MD Primary Care Provider Encounter Details Date Type Department Care Team (Late st Contact Info) Description 11/17/[address] [facility] [place] [address] [facility] [place] [address] [place] [address] Deshawn Kitchen MD NO ADDRESS ON FILE Social History Tobacco Use Types Packs/Day Years Used Date Smoking Tobacco: Never Assessed Comments Unknown Sex and Gender Information Value Date Recorded Sex Assigned at Not on file Legal Sex Female 3:08 AM INTERNET DESIGNER Gender Identity Not on file Sexual Orientation Not on file documented as of this encounter Plan of Treatment Upcoming Encounters Date Type Department Care Team (Late st Contact Info) Description 08/24/2024 8:45 AM CDT Appointment [facility] Ultrasound Rupesh [address] [place] [address] Gary Burgess MD [address] [id number] [place] [address] 06/25/2025 3:10 PM INTERNET DESIGNER Office Visit [facility] Gastroenterology [facility] [address] [place] [address] Gary Burgess MD [address] [id number] [place] [address] 08/08/2025 10:30 AM CDT Office Visit [facility] Neurology [address] [place] [address] Rama De La Paz MD [address] [place] [address] documented as of this encounter Visit Diagnoses Not on filedocumented in this encounter Additional Health Concerns Infection Onset Date Last Indicated Resolved Time R/O C. diff 05/21/2020 05/21/2020 05/21/2020 1:01 PM INTERNET DESIGNER R/O C. diff 10/31/2021 10/30/2021 10/31/2021 3:51 PM CDT R/O C. diff 09/01/2022 08/31/2022 09/01/2022 5:17 PM CDT documented as of this encounter Care Teams Printed Circuit Board Designer Relationship Specialty Start Date End Date Porsha Garrido MD [address] [place] [address] PCP - General 03/04/09 documented as of this encounter
--- OUTSIDE RECORDS SUMMARY | 2024-08-12 19:10 | XMS_ITS | Encounter Summary ---
Author Organization [facility] Address [address] [place] [address] Care Team Providers Care Registered Phlebotomist Part Time Name Role Phone Porsha Garrido MD Primary Care Provider Encounter Details Date Type Department Care Team (Late st Contact Info) Description 04/03/2001 Outpatient Historical [facility] [place] [address] [facility] [place] [address] [place] [address] Deshawn Kitchen MD NO ADDRESS ON FILE Social History Tobacco Use Types Packs/Day Years Used Date Smoking Tobacco: Never Assessed Comments Unknown Sex and Gender Information Value Date Recorded Sex Assigned at Not on file Legal Sex Female 3:08 AM PEDIATRIC GENETICIST Gender Identity Not on file Sexual Orientation Not on file documented as of this encounter Plan of Treatment Upcoming Encounters Date Type Department Care Team (Late st Contact Info) Description 08/24/2024 8:45 AM CDT Appointment [facility] Ultrasound Rupesh [address] [place] [address] Gary Burgess MD [address] [id number] [place] [address] 06/25/2025 3:10 PM PEDIATRIC GENETICIST Office Visit [facility] Gastroenterology [facility] [address] [place] [address] Gary Burgess MD [address] [id number] [place] [address] 08/08/2025 10:30 AM CDT Office Visit [facility] Neurology [address] [place] [address] Rama De La Paz MD [address] [place] [address] documented as of this encounter Visit Diagnoses Not on filedocumented in this encounter Additional Health Concerns Infection Onset Date Last Indicated Resolved Time R/O C. diff 05/21/2020 05/21/2020 05/21/2020 1:01 PM PEDIATRIC GENETICIST R/O C. diff 10/31/2021 10/30/2021 10/31/2021 3:51 PM CDT R/O C. diff 09/01/2022 08/31/2022 09/01/2022 5:17 PM CDT documented as of this encounter Care Teams Registered Phlebotomist Part Time Relationship Specialty Start Date End Date Porsha Garrido MD [address] [place] [address] PCP - General 03/04/09 documented as of this encounter
--- OUTSIDE RECORDS SUMMARY | 2024-08-12 19:10 | XMS_ITS | Encounter Summary ---
Author Organization [facility] Address [address] [place] [address] Care Team Providers Care Manager Restaurant Name Role Phone Porsha Garrido MD Primary Care Provider Encounter Details Date Type Department Care Team (Late st Contact Info) Description 05/10/2001 Outpatient Historical [facility] [place] [address] [facility] [place] [address] [place] [address] Deshawn Kitchen MD NO ADDRESS ON FILE Social History Tobacco Use Types Packs/Day Years Used Date Smoking Tobacco: Never Assessed Comments Unknown Sex and Gender Information Value Date Recorded Sex Assigned at Not on file Legal Sex Female 3:08 AM FRENCH COMBER Gender Identity Not on file Sexual Orientation Not on file documented as of this encounter Plan of Treatment Upcoming Encounters Date Type Department Care Team (Late st Contact Info) Description 08/24/2024 8:45 AM CDT Appointment [facility] Ultrasound Rupesh [address] [place] [phone] Gary Burgess MD [address] [id number] [place] [address] 06/25/2025 3:10 PM FRENCH COMBER Office Visit [facility] Gastroenterology [facility] [address] [place] [address] Gary Burgess MD [address] [id number] [place] [address] 08/08/2025 10:30 AM CDT Office Visit [facility] Neurology [address] [place] [address] Rama De La Paz MD [address] [place] [address] documented as of this encounter Visit Diagnoses Not on filedocumented in this encounter Additional Health Concerns Infection Onset Date Last Indicated Resolved Time R/O C. diff 05/21/2020 05/21/2020 05/21/2020 1:01 PM FRENCH COMBER R/O C. diff 10/31/2021 10/30/2021 10/31/2021 3:51 PM CDT R/O C. diff 09/01/2022 08/31/2022 09/01/2022 5:17 PM CDT documented as of this encounter Care Teams Manager Restaurant Relationship Specialty Start Date End Date Porsha Garrido MD [address] [place] [address] PCP - General 03/04/09 documented as of this encounter
--- OUTSIDE RECORDS SUMMARY | 2024-08-12 19:10 | XMS_ITS | Encounter Summary ---
Author Organization [facility] Address [address] [place] [address] Care Team Providers Care Medical Radiation Tech Name Role Phone Porsha Garrido MD Primary Care Provider Encounter Details Date Type Department Care Team (Late st Contact Info) Description 03/29/2008 Outpatient Historical [facility] [place] [address] [place] [address] Blood in Stool Social History Tobacco Use Types Packs/Day Years Used Date Smoking Tobacco: Never Assessed Comments Unknown Sex and Gender Information Value Date Recorded Sex Assigned at Not on file Legal Sex Female 3:08 AM FAGOTER Gender Identity Not on file Sexual Orientation Not on file documented as of this encounter Plan of Treatment Upcoming Encounters Date Type Department Care Team (Late st Contact Info) Description 08/24/2024 8:45 AM CDT Appointment [facility] [address] [facility] [address] [place] [address] Gary Burgess MD [address] [id number] [place] [address] 06/25/2025 3:10 PM FAGOTER Office Visit [facility] Gastroenterology [place] [address] [place] [address] Gary Burgess MD [address] [facility] [id number] [place] [address] 08/08/2025 10:30 AM CDT Office Visit [facility] Neurology [address] [facility] [address] [place] [address] Rama De La Paz MD [address] [facility] [address] [place] [address] documented as of this encounter Procedures Procedure Name Priority Date/Time Associated Diagnosis Comments PATHOLOGY Routine 03/29/2008 11:10 AM FAGOTER POC , URINE Routine 03/29/2008 10:00 AM FAGOTER documented in this encounter Results * PATHOLOGY (03/29/2008 11:10 AM FAGOTER) FINAL REPORT [facility] [address] [place], [place] [address] Patient: ALLY ARREAGA : 1985 Procedure Date: 03/29/2008 Accession Date: 03/29/2008 Case No: [id number] Ordering Dr: ANAI GANT Case types AW, BW, FW, NW and SH are performed by [facility], [place], [place] SURGICAL PATHOLOGY & NON-GYNECOLOGIC CYTOPATHOLOGY REPORT DIAGNOSIS RECTUM, ENDOSCOPIC BIOPSY: - MILD ACTIVE PROCTITIS, WITH FEATURES SUGGESTING CHRONICITY (SEE MICROSCOPIC). SMALL INTESTINE, DUODENUM, ENDOSCOPIC BIOPSY: - NO PATHOLOGIC DIAGNOSIS. STOMACH, ENDOSCOPIC BIOPSY: - NO PATHOLOGIC DIAGNOSIS. ESOPHAGUS, ENDOSCOPIC BIOPSY: - NO PATHOLOGIC DIAGNOSIS. LARGE INTESTINE, RANDOM, ENDOSCOPIC BIOPSY: - NO PATHOLOGIC DIAGNOSIS. Specimen Description: (1) Small bowel biopsy; (2) gastric biopsy; (3) esophagus biopsy; (4) random; (5) rectal. Operative Procedure: Colonoscopy and EGD. Patient Information/Histo ry/Diagnosis: (1) Small bowel Bx. Rule out sprue (chronic diarrhea and/or Fe-deficiency anemia); (2) Rule out H. pylori infection; (3) Erosive esophagitis. Probable GERD. Benign appearance. Rule out malignancy; (4)normal appearing mucosa; (5) Acute inflammation. Please help characterize. Endoscopic appearance c/w IBD; UC vs. Crohn's. Are there granulomas? Gross: Five containers are received labeled Ally Arreaga. The first specimen is received in a container labeled cold biopsy small bowel. It consists of two pieces of ayala tissue measuring 0.3 and 0.5 cm in greatest dimension. The specimen is submitted entirely labeled A1. The second specimen is received in a container labeled cold biopsy gastric. It consists of a single piece of ayala tissue measuring 0.3 x 0.2 x 0.2 cm. The specimen is submitted entirely labeled B1. The third specimen is received in a container labeled cold biopsy esophagus. It consists of two pieces of translucent ayala tissue each measuring 0.2 cm in greatest dimension. The specimen is submitted entirely labeled C1. The fourth specimen is received in a container labeled cold biopsy random colon. It consists of six pieces of ayala tissue ranging from 0.2 to 0.8 cm in greatest dimension. The specimen is submitted entirely labeled D1. The fifth specimen is received in a container labeled cold biopsy rectal. It consists of two pieces of ayala tissue each measuring 0.3 cm in greatest dimension. The specimen is submitted entirely labeled E1. DEANNA/CHRIS 03.29.2008 03:01 pm Microscopic: The slides are labeled [id number], Ally Arreaga. The rectal mucosa contains scattered neutrophils throughout the lamina propria with some infiltration of crypt epithelium. Histologic features consistent with chronicity are also present. These include crypt architectural distortion and generalized increase in chronic inflammatory cells with basal plasmacytosis. No granulomas are present. There is no evidence of dysplasia. The small intestinal mucosa is unremarkable. The villous architecture is normal, and there is no significant inflammation. The gastric biopsy consists of unremarkable-appe aring antral-type mucosa. The esophageal biopsy consists entirely of unremarkable-appe aring squamous- surfaced mucosa. The randomly obtained samples of colonic mucosa are unremarkable. The crypt architecture is normal, and there is no significant inflammation. MARISA/AMANDA 04.01.2008 10:47 am Staging Form: No. ELECTRONIC SIGNATURE FOR ELVIRA JULIAN M.D.- 04/01/08 11:20 am INTERFACE SYSTEM 03/29/2008 11:1 0 AM FAGOTER Anai Gant MD PATHOLOGY/CYTOLOGY ORDERABLES F inal Result Performing Organization Address [facility] de Phone Number INTERFACE SYSTEM Refer to clinic/hospital department * POC , URINE (03/29/2008 10:00 AM FAGOTER) , URINE POC Negative Negative [facility] Urine specimen (specimen) 03/29/2008 10:00 AM FAGOTER 03/29/2008 10:00 AM FAGOTER Anai Gant MD POINT OF CARE TESTING Final Res ult Performing Organization Address [facility] Phone Number INTERFACE SYSTEM Refer to clinic/hospital department [facility] CLIA# [id number] [place] [place] [address] documented in this encounter Visit Diagnoses Diagnosis Blood in stool documented in this encounter Additional Health Concerns Infection Onset Date Last Indicated Resolved Time R/O C. diff 05/21/2020 05/21/2020 05/21/2020 1:01 PM FAGOTER R/O C. diff 10/31/2021 10/30/2021 10/31/2021 3:51 PM CDT R/O C. diff 09/01/2022 08/31/2022 09/01/2022 5:17 PM CDT documented as of this encounter Care Teams Medical Radiation Tech Relationship Specialty Start Date End Date Porsha Garrido MD [address] [place] [address] PCP - General 03/04/09 documented as of this encounter
--- OUTSIDE RECORDS SUMMARY | 2024-08-12 19:10 | XMS_ITS | Encounter Summary ---
Author Organization [facility] Address [address] [place] [address] Care Team Providers Care Toy Mechanic Name Role Phone Porsha Garrido MD Primary Care Provider Encounter Details Date Type Department Care Team (Late st Contact Info) Description 04/16/1998 Outpatient Historical [facility] [place] [address] [facility] [place] [address] [place] [address] Deshawn Kitchen MD NO ADDRESS ON FILE Social History Tobacco Use Types Packs/Day Years Used Date Smoking Tobacco: Never Assessed Comments Unknown Sex and Gender Information Value Date Recorded Sex Assigned at Not on file Legal Sex Female 3:08 AM STRIKE OFF MACHINE OPERATOR Gender Identity Not on file Sexual Orientation Not on file documented as of this encounter Plan of Treatment Upcoming Encounters Date Type Department Care Team (Late st Contact Info) Description 08/24/2024 8:45 AM CDT Appointment [facility] Ultrasound Rupesh [address] [place] [address] Gary Burgess MD [address] [id number] [place] [address] 06/25/2025 3:10 PM STRIKE OFF MACHINE OPERATOR Office Visit [facility] Gastroenterology [facility] [address] [place] [address] Gary Burgess MD [address] [id number] [place] [address] 08/08/2025 10:30 AM CDT Office Visit [facility] Neurology [address] [place] [address] Rama De La Paz MD [address] [place] [address] documented as of this encounter Visit Diagnoses Not on filedocumented in this encounter Additional Health Concerns Infection Onset Date Last Indicated Resolved Time R/O C. diff 05/21/2020 05/21/2020 05/21/2020 1:01 PM STRIKE OFF MACHINE OPERATOR R/O C. diff 10/31/2021 10/30/2021 10/31/2021 3:51 PM CDT R/O C. diff 09/01/2022 08/31/2022 09/01/2022 5:17 PM CDT documented as of this encounter Care Teams Toy Mechanic Relationship Specialty Start Date End Date Porsha Garrido MD [address] [place] [address] PCP - General 03/04/09 documented as of this encounter
--- OUTSIDE RECORDS SUMMARY | 2024-08-12 19:10 | XMS_ITS | Encounter Summary ---
Author Organization [facility] Address [address] [place] [address] Care Team Providers Care Die Cut Operator Name Role Phone Porsha Garrido MD Primary Care Provider [phone] Encounter Details Date Type Department Care Team (Late st Contact Info) Description 12/01/2000 Outpatient Historical [facility] [place] [address] [facility] [place] [address] [place] [address] Deshawn Kitchen MD NO ADDRESS ON FILE Social History Tobacco Use Types Packs/Day Years Used Date Smoking Tobacco: Never Assessed Comments Unknown Sex and Gender Information Value Date Recorded Sex Assigned at Not on file Legal Sex Female 3:08 AM DROP SHIPMENT CLERK Gender Identity Not on file Sexual Orientation Not on file documented as of this encounter Plan of Treatment Upcoming Encounters Date Type Department Care Team (Late st Contact Info) Description 08/24/2024 8:45 AM CDT Appointment [facility] Ultrasound Rupesh [address] [place] [address] Gary Burgess MD [address] [id number] [place] [address] 06/25/2025 3:10 PM DROP SHIPMENT CLERK Office Visit [facility] Gastroenterology [facility] [address] [place] [address] Gary Burgess MD [address] [id number] [place] [address] 08/08/2025 10:30 AM CDT Office Visit [facility] Neurology [address] [place] [address] Rama DeL a Paz MD [address] [place] [address] documented as of this encounter Visit Diagnoses Not on filedocumented in this encounter Additional Health Concerns Infection Onset Date Last Indicated Resolved Time R/O C. diff 05/21/2020 05/21/2020 05/21/2020 1:01 PM DROP SHIPMENT CLERK R/O C. diff 10/31/2021 10/30/2021 10/31/2021 3:51 PM CDT R/O C. diff 09/01/2022 08/31/2022 09/01/2022 5:17 PM CDT documented as of this encounter Care Teams Die Cut Operator Relationship Specialty Start Date End Date Porsha Garrido MD [address] [place] [address] PCP - General 03/04/09 documented as of this encounter
--- OUTSIDE RECORDS SUMMARY | 2024-08-12 19:10 | XMS_ITS | Encounter Summary ---
Author Organization [facility] Address [address] [place] [address] Care Team Providers Care Wrap Turner Name Role Phone Porsha Garrido MD Primary Care Provider Encounter Details Date Type Department Care Team (Late st Contact Info) Description 07/17/2005 Outpatient Historical [facility] Demond Desai Jr., MD [address] [place] [address] Er, Authorized P NO ADDRESS ON FILE NONINFEC GASTROENTERIT NEC (Primary Dx) Social History Tobacco Use Types Packs/Day Years Used Date Smoking Tobacco: Never Assessed Comments Unknown Sex and Gender Information Value Date Recorded Sex Assigned at Not on file Legal Sex Female 3:08 AM BASKETBALL COMMENTATOR Gender Identity Not on file Sexual Orientation Not on file documented as of this encounter Plan of Treatment Upcoming Encounters Date Type Department Care Team (Late st Contact Info) Description 08/24/2024 8:45 AM CDT Appointment [address] [facility] [address] [place] [phone] Gary Burgess MD [address] [facility] [place] [address] 06/25/2025 3:10 PM BASKETBALL COMMENTATOR Office Visit [facility] Gastroenterology [place] [address] [place] [address] Gary Burgess MD [address] [id number] [place] [address] 08/08/2025 10:30 AM CDT Office Visit [facility] Neurology [address] [place] [address] Rama De La Paz MD [address] [place] [address] documented as of this encounter Procedures Procedure Name Priority Date/Time Associated Diagnosis Comments HCG QUALITATIVE, URINE Routine 07/17/2005 2:56 PM BASKETBALL COMMENTATOR URINALYSIS W/REFLEX MICROSCOPIC Routine 07/17/2005 2:48 PM BASKETBALL COMMENTATOR documented in this encounter Results * HCG QUALITATIVE, URINE (07/17/2005 2:56 PM BASKETBALL COMMENTATOR) HCG QUAL URINE Negative Negative INTER FACE SYSTEM SPECIFIC GRAVITY UA 1.025 1.001 - 1.035 INTERFACE SYSTEM HCG QUAL URINE COMMENT INTERFACE SYSTEM Comment: Urine in lab 07/17/2005 2:56 PM BASKETBALL COMMENTATOR us Historical Provider URINE ORDERABLES Final Resul t INTERFACE SYSTEM Refer to clinic/hospital department * (ABNORMAL) URINALYSIS (07/17/2005 2:48 PM BASKETBALL COMMENTATOR) COLOR UA Yellow INTERFACE SYSTEM CLARITY UA Clear Clear INTERFACE SYSTEM SPECIFIC GRAVITY UA 1.025 1.001 - 1.035 INTERFACE SYSTEM PH UA 5.0 5.0 - 8.0 INTERFACE SYSTEM LEUKOCYTE ESTERASE UA Negative Negative INTERFACE SYSTEM NITRITE UA Negative Negative INTERFACE SYSTEM PROTEIN UA Trace(A) Negative INTERFACE SYSTEM GLUCOSE UA Negative Negative INTERFACE SYSTEM KETONES UA 3+(A) Negative INTERFACE SYSTEM UROBILINOGEN UA <1 <1 mg/dL INTE RFACE SYSTEM BILIRUBIN UA Negative Negative INTERFA CE SYSTEM BLOOD UA Negative Negative INTERFACE SYSTEM WBC UA <1 0 - 5 /HPF INTERFACE SYSTEM RBC UA <1 0 - 4 /HPF INTERFACE SYSTEM 07/17/2005 2:48 PM BASKETBALL COMMENTATOR us Historical Provider URINE ORDERABLES Final Resul t INTERFACE SYSTEM Refer to clinic/hospital department documented in this encounter Visit Diagnoses Diagnosis Other and unspecified noninfectious gastroenteritis and colitis(558.9)- Primary Other and unspecified noninfectious gastroenteritis and colitis documented in this encounter Additional Health Concerns Infection Onset Date Last Indicated Resolved Time R/O C. diff 05/21/2020 05/21/2020 05/21/2020 1:0 1 PM BASKETBALL COMMENTATOR R/O C. diff 10/31/2021 10/30/2021 10/31/2021 3:51 PM CDT R/O C. diff 09/01/2022 08/31/2022 09/01/2022 5:17 PM CDT documented as of this encounter Care Teams Wrap Turner Relationship Specialty Start Date End Date Porsha Garrido MD [address] [place] [address] PCP - General 03/04/09 documented as of this encounter
--- OUTSIDE RECORDS SUMMARY | 2024-08-12 19:10 | XMS_ITS | Encounter Summary ---
Author Organization [facility] Address [address] [place] [address] Care Team Providers Care Telephone Directory Distributor Driver Name Role Phone Porsha Garrido MD Primary Care Provider Encounter Details Date Type Department Care Team (Late st Contact Info) Description 10/27/2005 Outpatient Historical [facility] [address] [address] [place] [phone] Deshawn Kitchen MD NO ADDRESS ON FILE Social History Tobacco Use Types Packs/Day Years Used Date Smoking Tobacco: Never Assessed Comments Unknown Sex and Gender Information Value Date Recorded Sex Assigned at Not on file Legal Sex Female 3:08 AM INFORMATICS NURSE SPECIALIST Gender Identity Not on file Sexual Orientation Not on file documented as of this encounter Plan of Treatment Upcoming Encounters Date Type Department Care Team (Late st Contact Info) Description 08/24/2024 8:45 AM CDT Appointment [facility] Ultrasound Rupesh [address] [place] [phone] Gary Burgess MD [id number] [place] [address] 06/25/2025 3:10 PM INFORMATICS NURSE SPECIALIST Office Visit [facility] Gastroenterology [facility] [address] [place] [address] Gary Burgess MD [id number] [place] [address] 08/08/2025 10:30 AM CDT Office Visit [facility] Neurology [address] [place] [address] Rama De La Paz MD [address] [place] [address] documented as of this encounter Visit Diagnoses Not on filedocumented in this encounter Additional Health Concerns Infection Onset Date Last Indicated Resolved Time R/O C. diff 05/21/2020 05/21/2020 05/21/2020 1:01 PM INFORMATICS NURSE SPECIALIST R/O C. diff 10/31/2021 10/30/2021 10/31/2021 3:51 PM CDT R/O C. diff 09/01/2022 08/31/2022 09/01/2022 5:17 PM CDT documented as of this encounter Care Teams Telephone Directory Distributor Driver Relationship Specialty Start Date End Date Porsha Garrido MD [address] [place] [id number] PCP - General 03/04/09 documented as of this encounter
--- OUTSIDE RECORDS SUMMARY | 2024-08-12 19:11 | XMS_ITS | Encounter Summary ---
Author Organization [facility] [place] [address] [place] [address] Care Team Providers Care Registered Nurse Float Pool Name Role Phone Unavailable Primary Care Provider Unavailabl e Prior Encounters Date Type Department Care Team Description 01/31/2024 Travel 01/31/2024 2:00 PM CDT Office Visit [facility] [address] [place] [address] Princess Soto DDS Dental caries, unspecified (Primary Dx) 01/30/2024 10:00 AM CDT Office Visit [facility] [address] [place] [address] Princess Soto DDS Encounter for dental examination and cleaning without abnormal findings (Primary Dx); Dental caries, unspecified 07/18/2023 Travel 07/18/2023 2:30 PM DANCE ARTIST Office Visit [facility] [address] [place] [address] Princess Soto DDS Encounter for dental examination and cleaning without abnormal findings (Primary Dx) 12/02/2022 8:00 AM CDT Office Visit [facility] [address] [place] [address] Princess Soto DDS 02/18/2022 Travel 02/18/2022 4:00 PM CDT Office Visit [facility] [address] [place] [address] Princess Soto DDS 11/21/2020 Travel 11/21/2020 10:30 AM CDT Office Visit [facility] [address] [place], [place] [address] [address] Heri Napoles, [facility] 11/21/2020 10:15 AM CDT Office Visit [facility] [address] [place], [place] [address] [address] Javy Keita, SARAH 06/04/2019 Converted CPS Chart Documents [facility] [address] [place], [place] [address] [address] <No scans attached> 06/04/2019 Converted 13x Documents [facility] [address] [place], [place] [address] [address] <No scans attached> Last Filed Vital Signs Vital Sign Reading Time Taken Comments Blood Pressure 125/67 01/31/2024 1:57 PM CDT Pulse 69 01/31/2024 1:57 PM CDT Temperature - - Respiratory Rate - - Oxygen Saturation - - Inhaled Oxygen Concentration - - Weight 86.2 kg (190 lb) 12/02/2022 8:08 AM CDT Height 172.7 cm (5' 8 ) 12/02/2022 8:08 AM CDT Body Mass Index 28.89 12/02/2022 8:08 AM CDT Plan of Treatment Upcoming Encounters Date Type Department Care Team (Late st Contact Info) Description 09/12/2024 9:15 AM CDT Office Visit [facility] [address] [facility] [place] [address] Anahi Leigh, DDS [address] [place] [address] [place] [address] Procedures Procedure Name Priority Date/Time Associated Diagnosis Comments 30 O RESIN-BASED COMPOSITE - ONE SURFACE, POSTERIOR Routine 01/31/2024 2:00 PM CDT Dental caries, unspecified TOPICAL APPLICATION OF FLUORIDE VARNISH Routine 01/30/2024 10:00 AM CDT PROPHYLAXIS - ADULT Routine 01/30/2024 1 0:00 AM CDT Encounter for dental examination and cleaning without abnormal findings PERIODIC ORAL EVALUATION - ESTABLISHED PATIENT Routine 01/30/2024 10:00 AM CDT Encounter for dental examination and cleaning without abnormal findings TOPICAL APPLICATION OF FLUORIDE VARNISH Routine 07/18/2023 2:30 PM DANCE ARTIST PROPHYLAXIS - ADULT Routine 07/18/2023 2 :30 PM DANCE ARTIST Encounter for dental examination and cleaning without abnormal findings BITEWINGS - FOUR RADIOGRAPHIC IMAGES Routine 07/18/2023 2:30 PM DANCE ARTIST PERIODIC ORAL EVALUATION - ESTABLISHED PATIENT Routine 07/18/2023 2:30 PM DANCE ARTIST Encounter for dental examination and cleaning without abnormal findings TOPICAL APPLICATION OF FLUORIDE VARNISH Routine 12/02/2022 8:00 AM CDT PROPHYLAXIS - ADULT Routine 12/02/2022 8 :00 AM CDT PERIODIC ORAL EVALUATION - ESTABLISHED PATIENT Routine 12/02/2022 8:00 AM CDT BITEWINGS - FOUR RADIOGRAPHIC IMAGES Routine 02/18/2022 4:00 PM CDT PERIODIC ORAL EVALUATION - ESTABLISHED PATIENT Routine 02/18/2022 4:00 PM CDT PROPHYLAXIS - ADULT Routine 02/18/2022 4 :00 PM CDT TOPICAL APPLICATION OF FLUORIDE VARNISH Routine 02/18/2022 4:00 PM CDT ORAL HYGIENE INSTRUCTIONS Routine 2020 10:30 AM CDT TOPICAL APPLICATION OF FLUORIDE VARNISH Routine 11/21/2020 10:30 AM CDT PROPHYLAXIS - ADULT Routine 11/21/2020 1 0:30 AM CDT BITEWINGS - FOUR RADIOGRAPHIC IMAGES Routine 11/21/2020 10:15 AM CDT PERIODIC ORAL EVALUATION - ESTABLISHED PATIENT Routine 11/21/2020 10:15 AM CDT ORAL HYGIENE INSTRUCTIONS Routine 2019 2:00 AM DANCE ARTIST TOPICAL APPLICATION OF FLUORIDE VARNISH Routine 06/25/2019 2:00 AM DANCE ARTIST PROPHYLAXIS - ADULT Routine 06/25/2019 2 :00 AM DANCE ARTIST COMPREHENSIVE ORAL EVALUATION - NEW OR ESTABLISHED PATIENT Routine 06/25/2019 2:00 AM DANCE ARTIST PANORAMIC RADIOGRAPHIC IMAGE Routine 06/25/2019 2:00 AM DANCE ARTIST INTRAORAL - COMPREHENSIVE SERIES OF RADIOGRAPHIC IMAGES Routine 06/25/2019 2:00 AM DANCE ARTIST INTRAORAL PHOTO Routine 06/25/2019 2:00 AM DANCE ARTIST INTRAORAL PHOTO Routine 06/25/2019 2:00 AM DANCE ARTIST INTRAORAL PHOTO Routine 06/25/2019 2:00 AM DANCE ARTIST INTRAORAL PHOTO Routine 06/25/2019 2:00 AM DANCE ARTIST 30 O COMPOSITE FILLING Routine 0 2:00 AM DANCE ARTIST CANCELLED APPOINTMENT Routine 06/20/2019 2:00 AM DANCE ARTIST Visit Diagnoses Diagnosis Start Date Encounter for dental examination and cleaning without abnormal findings 07/18/2023 Encounter for dental examination and cleaning without abnormal findings 01/30/2024 Dental caries, unspecified 01/30/2024 Dental caries, unspecified 01/31/2024 Insurance PPO
--- OUTSIDE RECORDS SUMMARY | 2024-08-12 19:11 | XMS_ITS | Clinical Summary ---
Author Organization [facility] Address [address] [place] [address] Care Team Providers Care Ag Service Manager Name Role Phone Unavailable Primary Care Provider Unavailabl e Allergies Active Allergy Reactions Criticality Noted Date Comments Azithromycin Diarrhea,Unknown High 09/17/2009 Doxycycline Hives,Itching,Rash Medium 05/07/2014 Sulfa (Sulfonamide Antibiotics) Rash Medium 07/2009 Medications cetirizine (ZyrTEC) 1 mg/mL syrup Take by mouth. Activ e cetirizine (ZyrTEC) 10 mg tablet Take 1 tablet by mouth 1 (one) time each day. Active inFLIXimab (REMICADE) 100 mg injection 06/25/19 21 Active ALPRAZolam (XANAX) 0.25 mg tablet Take 0.25 mg by mouth 3 (three) times a day if needed. 12/07/19 20 Active azaTHIOprine (IMURAN) 50 mg tablet Take 50 mg by mouth 1 (one) time each day. 02/13/20 20 Active cetirizine (ZyrTEC) 10 mg tablet Active escitalopram (LEXAPRO) 10 mg tablet Take 10 mg by mouth 1 (one) time each day. 07/02/19 21 Active etonogestrel-elut ing contraceptive device (Nexplanon) 68 mg implant Inject under the skin. Active fluticasone propionate (FLONASE) 50 mcg/actuation nasal spray Administer 2 sprays into affected nostril(s) 1 (one) time each day. Active inFLIXimab (Remicade) 100 mg injection Active valACYclovir (VALTREX) 500 mg tablet Take 1 tablet by mouth 2 (two) times a day. 09/23/19 21 Active valACYclovir (VALTREX) 500 mg tablet Take 500 mg by mouth 1 (one) time each day. Active predniSONE (DELTASONE) 10 mg tablet Take 10 mg by mouth 1 (one) time each day. 06/09/19 21 Active pantoprazole (PROTONIX) 40 mg EC tablet TAKE 1 TABLET DAILY (NEED APPOINTMENT FOR FUTURE REFILLS OR 90 DAY SUPPLY) 05/13/20 20 Active albuterol HFA (PROVENTIL HFA;VENTOLIN HFA) 90 mcg/actuation inhaler Inhale 2 puffs every 6 (six) hours if needed. 07/06/19 22 Active hydrocortisone (CORTENEMA) 100 mg/60 mL enema Insert 100 mg into the rectum. 11/06/19 22 Active tirzepatide (Mounjaro) 2.5 mg/0.5 mL pen injector Inject 2.5 mg under the skin per week. 02/13/20 22 Active vedolizumab (Entyvio) 300 mg injection Every 8 weeks 11/26/19 22 Active amoxicillin (AMOXIL) 500 mg capsule 11/25/19 23 Active baclofen 5 mg tablet Take 5 mg by mouth every 12 (twelve) hours if needed. 04/15/20 22 Active baclofen 5 mg tablet Take 1 tablet by mouth 2 (two) times a day if needed. for pain Active hyoscyamine (LEVSIN) 0.[address] 1 TABLET (0.125 MG) UNDER TONGUE 4 TIMES DAILY NEEDED FOR SPASM. Active rizatriptan (MAXALT) 10 mg tablet TAKE 1 TAB BY MOUTH ONCE AT FIRST SIGN OF MIGRAINE. MAY REPEAT ONE TIME AFTER 2 HOURS IF NEEDED. 04/12/20 22 Active budesonide-formot Candice (SYMBICORT) 160-4.5 mcg/actuation inhaler INHALE 2 PUFFS TWICE A DAY. RINSE MOUTH AFTER USE. Active ciprofloxacin (CILOXAN) 0.3 % ophthalmic solution 2 drops in right eye every 2 hours while awake for 2 days, then 2 drops every 4 hours for 5 days Reasons: Bacterial Conjunctivitis 06/07/19 24 Active fluconazole (DIFLUCAN) 150 mg tablet TAKE 1 TABLET BY MOUTH ONCE FOR 1 DOSE 04/19/20 23 Active meclizine (ANTIVERT) 25 mg tablet Take 25 mg by mouth 3 (three) times a day if needed. 05/27/19 24 Active Ryaltris 665-25 mcg/spray spray,non-aerosol 06/04/19 24 Active prednisoLONE acetate (PRED FORTE) 1 % ophthalmic suspension SHAKE BOTTLE WELL AND INSTILL 1 DROP IN BOTH EYES TWICE A DAY FOR 7 DAYS, THEN ONCE DAILY FOR 7 DAYS 06/09/19 24 Active moxifloxacin (VIGAMOX) 0.5 % ophthalmic solution INSTILL 1 (ONE) DROP INTO LEFT EYE 3 TIMES DAILY FOR 7 DAYS 04/21/20 23 Active Active Problems Problem Noted Date Diagnosed Date Migraine with aura and witho ut status migrainosus, not intractable 05/27/2023 Iron deficiency anemia due to chronic blood loss 09/10/2022 Overweight (BMI 25.0-29.9) 02/12/2022 Ulcerative rectosigmoiditis without complication 02/12/2022 Bloody stool 11/21/2020 Gastrointestinal problem 11/21/2020 Overview (11/21/2020): Procedures EGD, 02/27/10, RSS Colonoscopy, 02/27/10, RSS JOHN (generalized anxiety disorder) 05/29/2019 Chronic ulcerative colitis with rectal bleeding 01/05/2015 Overview (11/21/2020): Dr. Burgess 06/2010 left sided colitis, 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 Harrison/GI 12/2014 (descending and sigmoid colitis) Anxiety, generalized 11/20/2014 Microscopic colitis 02/27/2010 Herpes labialis 01/27/2010 Ulcerative colitis 11/20/2008 Screening for condition 05/31/2008 Overview (11/21/2020): Adult Abstraction Problem List Screening Dexa Scan (Bone Density): Result: Pap Smear: 09/30/17 negative 10/26/16 negative 09/09/15 negative 08/28/14 negative 08/22/13 negative 05/17/12 negative 04/27/11 negative 04/22/2010 negative 09/12/09 ascus 04/23 colpo 04/09/09 ASCUS, +HPV 01/03/2008 negative 01/03/08 negative 11/25/06 negative Mammogram: Result: CF Test: Result: Abdominal pain, generalized 06/29/2005 Gastro-esophageal reflux disease without esophag itis 11/23/2004 Routine or child health check 07/31/2004 Seasonal allergies 11/21/1999 Closed fracture of forearm 12/09/1995 Varicella without mention of complication 1992 Asthma 12/26/1989 Social History Tobacco Use Types Packs/Day Years Used Date Smoking Tobacco: Never Smokeless Tobacco: Never Tobacco Cessation:Counseling Given: Not Answered Alcohol Use Standard Drinks/Week Comments Not Currently 0 (1 standard drink = 0.6 oz pur e alcohol) Comments Unknown Sex and Gender Information Value Date Recorded Sex Assigned at Not on file Legal Sex Female 1:20 AM PST Gender Identity Not on file Sexual Orientation [...] Description 09/12/2024 9:15 AM CDT Office Visit [facility] [address] [place] [phone] Anahi Leigh, DDS [address] [place] [address] Health Maintenance Due Date Last Done Comments Dental X-Ray: Full Mouth 12/18/2022 12/18/2019, 06/16 Dental X-Ray: Panoramic 12/18/2022 12/18/2019, 06/25 Dental X-Ray: Bitewings 01/19/2024 07/18/2023 Dental Oral Exam 07/30/2024 01/30/2024, 08/2023, 12/02/2022, Additional history exists Dental Prophylaxis 07/30/2024 01/30/2024, 0 07/18/2023, 12/02/2022, Additional history exists Meningococcal B Vaccine Aged Out No l onger eligible based on patient's age to complete this topic Procedures Procedure Name Priority Date/Time Associated Diagnosis Comments PROPHYLAXIS - ADULT Routine 01/30/2024 1 0:00 AM CDT Encounter for dental examination and cleaning without abnormal findings PERIODIC ORAL EVALUATION - ESTABLISHED PATIENT Routine 01/30/2024 10:00 AM CDT Encounter for dental examination and cleaning without abnormal findings PANORAMIC RADIOGRAPHIC IMAGE Routine 06/25/2019 2:00 AM [facility] SCULLION INTRAORAL - COMPREHENSIVE SERIES OF RADIOGRAPHIC IMAGES Routine 06/25/2019 2:00 AM [facility] SCULLION from Last 3 Months or Most Recently Relevant to Health Maintenance Insurance DENTAL ANDI O
--- OUTSIDE RECORDS SUMMARY | 2024-08-12 19:11 | XMS_ITS | Encounter Summary ---
Author Organization [facility] Address [address] [place] [address] Care Team Providers Care Geek [employer] Name Role Phone Porsha Garrido MD Primary Care Provider Encounter Details Date Type Department Care Team (Late st Contact Info) Description 07/16/2005 Outpatient Historical [facility] Enrico Felix MD [address] [facility] [facility] [place] [address] Er, Authorized P NO ADDRESS ON FILE URIN TRACT INFECTION NOS (Primary Dx) Social History Tobacco Use Types Packs/Day Years Used Date Smoking Tobacco: Never Assessed Comments Unknown Sex and Gender Information Value Date Recorded Sex Assigned at Not on file Legal Sex Female 3:08 AM ELECTRIC CUTTER OPERATOR Gender Identity Not on file Sexual Orientation Not on file documented as of this encounter Plan of Treatment Upcoming Encounters Date Type Department Care Team (Late st Contact Info) Description 08/24/2024 8:45 AM CDT Appointment [facility] [address] [facility] [address] [place] [phone] Gary Burgess MD [address] [facility] [place] [address] 06/25/2025 3:10 PM ELECTRIC CUTTER OPERATOR Office Visit [facility] [place] [address] [place] [address] Gary Burgess MD [id number] [place] [address] 08/08/2025 10:30 AM CDT Office Visit [facility] Neurology [address] [place] [address] Rama De La Paz MD [address] [place] [address] documented as of this encounter Procedures Procedure Name Priority Date/Time Associated Diagnosis Comments URINALYSIS WITH MICROSCOPIC Routine 07/16/2005 1:15 PM ELECTRIC CUTTER OPERATOR HCG QUALITATIVE, URINE Routine 07/16/2005 1:15 PM ELECTRIC CUTTER OPERATOR CBC WITH DIFFERENTIAL Routine 07/16/2005 12:35 PM ELECTRIC CUTTER OPERATOR CBC WITH DIFFERENTIAL Routine 07/16/2005 12:35 PM ELECTRIC CUTTER OPERATOR documented in this encounter Results * HCG QUALITATIVE, URINE (07/16/2005 1:15 PM ELECTRIC CUTTER OPERATOR) HCG QUAL URINE Negative Negative INTER FACE SYSTEM SPECIFIC GRAVITY UA 1.030 1.001 - 1.035 INTERFACE SYSTEM 07/16/2005 1:15 PM ELECTRIC CUTTER OPERATOR us Enrico Felix MD URINE ORDERABLES Final Result INTERFACE SYSTEM Refer to clinic/hospital department * (ABNORMAL) URINALYSIS WITH MICROSCOPIC (07/16/2005 1:15 PM ELECTRIC CUTTER OPERATOR) COLOR UA Yellow INTERFACE SYSTEM CLARITY UA Slt. Cloudy(A) Clear INTERFACE SYSTEM SPECIFIC GRAVITY UA 1.030 1.001 - 1.035 INTERFACE SYSTEM PH UA 5.0 5.0 - 8.0 INTERFACE SYSTEM LEUKOCYTE ESTERASE UA Negative Negative INTERFACE SYSTEM NITRITE UA Negative Negative INTERFACE SYSTEM PROTEIN UA 1+(A) Negative INTERFACE SYSTEM GLUCOSE UA Negative Negative INTERFACE SYSTEM KETONES UA 2+(A) Negative INTERFACE SYSTEM UROBILINOGEN UA <1 <1 mg/dL INTE RFACE SYSTEM BILIRUBIN UA Negative Negative INTERFA CE SYSTEM BLOOD UA 4+(A) Negative INTERFACE SYSTEM WBC UA 14(H) 0 - 5 /HPF INTERFACE SYSTEM RBC UA >100(H) 0 - 4 /HPF INTERFACE SYSTEM EPITHELIAL CELLS, URINE 5-10 /HPF INTERFACE SYSTEM 07/16/2005 1:15 PM ELECTRIC CUTTER OPERATOR Historical Provider URINE ORDERABLES Final Resul t Performing Organization Address [facility] Phone Number INTERFACE SYSTEM Refer to clinic/hospital department * (ABNORMAL) CBC WITH DIFFERENTIAL (07/16/2005 12:35 PM ELECTRIC CUTTER OPERATOR) NEUTROPHILS 89(H) 45 - 70 % INTERFAC E SYSTEM LYMPHOCYTES 8(L) 16 - 45 % INTERFAC E SYSTEM MONOCYTES 3 3 - 13 % INTERFACE SYSTEM EOSINOPHILS 0 0 - 7 % INTERFAC E SYSTEM BASOPHILS 0 0 - 2 % INTERFACE SYSTEM NEUTROPHIL ABSOLUTE 6.93 1.90 - 7.00 K/uL INTERFACE SYSTEM LYMPHOCYTE ABSOLUTE 0.59(L) 0.70 - 4.50 K/uL INTERFACE SYSTEM MONOCYTE ABSOLUTE 0.25 0.10 - 1.30 K/uL INTERFACE SYSTEM EOSINOPHIL ABSOLUTE 0.00 0.00 - 0.70 K/uL INTERFACE SYSTEM BASOPHILS ABSOLUTE 0.02 0.00 - 0.20 K/uL INTERFACE SYSTEM 07/16/2005 12:3 5 PM ELECTRIC CUTTER OPERATOR Historical Provider HEMATOLOGY ORDERABLES Final Result Performing Organization Address [facility] Phone Number INTERFACE SYSTEM Refer to clinic/hospital department * (ABNORMAL) CBC WITH DIFFERENTIAL (07/16/2005 12:35 PM ELECTRIC CUTTER OPERATOR) WBC 7.8 4.0 - 9.8 K/uL INTERFACE SYSTEM RBC 5.13(H) 3.90 - 4.90 M/uL INTERFACE SYSTEM HEMOGLOBIN 14.0 11.8 - 14.8 g/dL INTERFACE SYSTEM HEMATOCRIT 40.6 35.5 - 44.0 % INTERFACE SYSTEM MCV 79.1(L) 82.0 - 99.0 fL INTERFACE SYSTEM MCH 27.3 27.2 - 32.6 pg INTERFACE SYSTEM MCHC 34.5 31.5 - 35.5 % INTERFACE SYSTEM RDW 12.4 11.5 - 14.5 % INTERFACE SYSTEM RDW-STDEV 36.2(L) 37.1 - 48.7 fL INTERFACE SYSTEM PLATELETS 315 140 - 350 K/uL INTERFACE SYSTEM MPV 8.9(L) 9.3 - 12.4 fL INTERFACE SYSTEM 07/16/2005 12:3 5 PM ELECTRIC CUTTER OPERATOR us Historical Provider HEMATOLOGY ORDERABLES Final Result INTERFACE SYSTEM Refer to clinic/hospital department documented in this encounter Visit Diagnoses Diagnosis Urinary tract infection, site not specified- Primary documented in this encounter Additional Health Concerns Infection Onset Date Last Indicated Resolved Time R/O C. diff 05/21/2020 05/21/2020 05/21/2020 1:01 PM ELECTRIC CUTTER OPERATOR R/O C. diff 10/31/2021 10/30/2021 10/31/2021 3:51 PM CDT R/O C. diff 09/01/2022 08/31/2022 09/01/2022 5:17 PM CDT documented as of this encounter Care Teams [employer] Relationship Specialty Start Date End Date Porsha Garrido MD [address] [place] [id number] PCP - General 03/04/09 documented as of this encounter
[2024-08-12 19:20] LABS: BEDSIDEPREGUCG Negative (Negative)
--- NOTE | 2024-08-12 20:05 | ED.ABDPAIN ---
HPI - Abdominal Pain General Chief Complaint: Abdominal Pain Stated Complaint: Abd pain, worse last 2-3 days Time Seen by Provider: 08/12/24 18:35 Source: patient Mode of arrival: ambulatory Limitations: no limitations History of Present Illness HPI narrative: Patient is a 39-year-old female who presents the ED with report of right upper abdominal pain. Patient reports she has been having some intermittent pain in her mid to right upper abdomen for the past 1-2 months. States pain is becoming more consistent and severe over the last few days. Worse with any eating or drinking. Reports nausea, increased belching, watery diarrhea. Denies vomiting, fevers, urinary complaints. Patient notes she had an ultrasound performed an urgent care recently which showed gallbladder sludge. Related Data Allergies Allergy/AdvReac Type Severity Reaction Status Date / Time doxycycline Allergy Intermediate Rash Verified 08/12/24 18:20 Sulfa (Sulfonamide Allergy Intermediate Rash Verified 08/12/24 18:20 Antibiotics) Review of Systems Review of Systems: All systems reviewed & are unremarkable except as noted in HPI. All systems reviewed & are unremarkable except as noted in HPI and below Exam Narrative: GENERAL: Well appearing, obese with BMI of 33.7, non-toxic, in no acute distress. HEAD: Normocephalic, atraumatic. RESPIRATORY: Airway patent, respirations nonlabored. Clear to auscultation bilaterally, no rales, rhonchi, wheezing. CARDIOVASCULAR: Regular rate and rhythm ABDOMINAL: Soft, mild tenderness palpation in epigastric and right upper quadrant. Nondistended. Normoactive BS. MUSCULOSKELETAL: Moves all extremities. No gross deformities. SKIN: Warm, dry, normal color. NEURO: A&O X3. Speech clear. PSYCHIATRIC: Appropriate mood and affect. Normal interaction. Course Vital Signs Vital signs: Vital Signs Pulse Rate 75 08/12/24 18:49 Respiratory Rate 16 08/12/24 18:49 Blood Pressure 126/77 08/12/24 18:49 Pulse Oximetry 100 08/12/24 18:49 Temperature 98.0 F 08/13/24 00:37 Pulse Rate 65 08/13/24 00:37 Respiratory Rate 14 08/13/24 00:37 Blood Pressure 107/69 08/13/24 00:37 Pulse Oximetry 99 08/13/24 00:37 MDM - Abdominal Pain MDM Narrative Medical decision making narrative: Patient presented to ED with ongoing right upper quadrant abdominal pain for the past few months, worsening over the past couple of days. Vital signs are stable upon arrival. Patient is in no acute distress. She does have focal tenderness in right upper quadrant on exam. Cbc without leukocytosis. CMP is unremarkable. Normal LFTs and lipase. UA is clear. Urine is negative. CT scan of abdomen pelvis was obtained and showed normal gallbladder. No comment on gallstones. No abnormal bile duct dilation. Discussed lab and imaging findings with patient, overall reassuring w/u. Discussed likelihood of pain being related to biliary colic. Pain present to right upper quadrant, worse with the drinking. Discussed biliary colic and management of such, including low-fat diet. Feel patient is safe for discharge home at this time with close outpatient follow-up with General surgery. Will be referred to general surgery. Will prescribe short course of pain medication for home use. Discussed very strict return precautions, signs and symptoms of acute cholecystitis. Patient voiced understanding. CT did show: IMPRESSION: 12 mm indeterminate density right upper pole lesion. Recommend nonemergent but timely MRI or CT without and with contrast for further evaluation. Mild right pelviectasis and caliectasis with ureteral stranding, may represent ascending infection in the appropriate clinical context. Discussed this with patient. Do not feel this is causing patient's symptoms. She is having any urinary complaints. Urinalysis was clear here. Denying flank pain. No previous history of kidney stones. No obstructing stone present currently. Will refer to Urology for further evaluation. Patient in agreement with plan. Discharged in stable condition. Medical Records Attestation: I reviewed the patient's medical records. Lab Data Attestation: I reviewed the patient's lab results. 08/12/24 18:44 08/12/24 18:44 Labs: Lab Results 08/12/24 08/12/24 08/12/24 Range/Units 18:44 18:53 19:17 WBC 7.8 (4.5-10.0) K/mm3 RBC 4.26 (4.2-5.4) M/mm3 Hgb 12.7 (12.0-15.0) g/dL Hct 36.7 L (37.0-47.0) % MCV 86.2 (80-100) fl MCH 29.8 (26-34) pg MCHC 34.6 (32-36) g/dl RDW 12.3 (11.5-14.5) % Plt Count 393 H (150-375) k/mm3 MPV 9.0 (7.4-10.4) fl Immature Gran % (Auto) 0.3 (0-0.5) % Neut % (Auto) 58.1 (45.5-73.1) % Lymph % (Auto) 26.7 (18.3-44.2) % Dickenson % (Auto) 3.9 (2.6-8.5) % Eos % (Auto) 10.2 H (0-4.4) % Baso % (Auto) 0.8 (0.2-1.2) % Lymph # (Auto) 2.08 (0.9-3.2) K/mm3 Dickenson # (Auto) 0.3 (0.1-0.6) K/mm3 Eos # (Auto) 0.8 H (0-0.3) K/mm3 Baso # (Auto) 0.1 (0.0-0.1) K/mm3 Abs Immat Gran (auto) 0.02 (0.00-0.031) K/mm3 Absolute Neuts (auto) 4.5 (1.3-6.7) K/mm3 Absolute Nucleated RBC 0.000 (0.0-0.012) K/mm3 Nucleated RBC % 0.0 (0.0-0.2) % Sodium 140 (137-145) mmol/L Potassium 3.6 (3.4-5.0) mmol/L Chloride 102 (98-107) mmol/L Carbon Dioxide 28 (22-30) mmol/L Anion Gap 10 (4-12) mmol/L BUN 10 (7-17) mg/dL Creatinine 0.63 L (0.7-1.0) mg/dL Estim Creat Clear Calc 109 ml/min Estimated GFR > 60 (59 - ) Glucose 99 (65-110) mg/dL Calcium 9.6 (8.4-10.2) mg/dL Total Bilirubin 0.3 (0.2-1.3) mg/dL AST 24 (14-36) U/L ALT 18 (6-35) U/L Alkaline Phosphatase 68 (38-126) U/L Total Protein 8.0 (6.3-8.2) g/dL Albumin 4.9 (3.5-5.1) g/dL Lipase 96 (23-300) U/L Urine Color Yellow (Yellow) Urine Appearance Clear (Clear) Urine pH 7.0 (5.0-9.0) Ur Specific [place] 1.003 (1.001-1.035) Urine Protein Negative (Negative) mg/dL Urine Glucose (UA) Negative (Negative) mg/dL Urine Ketones Negative (Negative) mg/dL Ur Blood (Man) Negative (Negative) Urine Nitrate Negative (Negative) Urine Bilirubin Negative (Negative) Urine Urobilinogen 0.2 (<2.0) mg/dL Leukocyte Esterase Rfl Negative (Negative) SHAMIKA/UL POC Urine HCG, Qual Negative (Negative) Imaging Data Attestation: I personally reviewed and interpreted this imaging study as follows: Radiologist's impression: ITS Impressions Abdomen/Pelvis CT 08/12/24 20:50 IMPRESSION: 12 mm indeterminate density right upper pole lesion. Recommend nonemergent but timely MRI or CT without and with contrast for further evaluation. Mild right pelviectasis and caliectasis with ureteral stranding, may represent ascending infection in the appropriate clinical context. Discharge Plan Discharge Clinical Impression: RUQ abdominal pain, Lesion of right [place] kidney, Pelviectasis of kidney Patient Disposition: Home, Self-Care Condition: Stable Instructions: Antibiotic Form, Cholecystitis (ED), Biliary Colic (ED), Gallstones (ED), Low Fat Diet (ED) Additional Instructions: Follow low-fat diet. Stay well hydrated. Continue Tylenol/ibuprofen as needed for pain. Oakley as needed for more severe pain. Utilize Zofran as needed for nausea. Follow-up with General surgery for further evaluation of your gallbladder. Return to the ED if you experience worsening or severe pain, unable to keep down food or drink, fevers, difficulty breathing, or any other symptoms of concern. Your CT imaging showed a lesion of your right kidney. You will need further imaging of this. Recommend follow-up with primary care doctor and/or Urology for further evaluation. Patient Language: Romanian Prescriptions: New hydrocodone-acetaminophen 5-325 mg tablet 1 tablet PO Q6H PRN (Reason: pain) Qty: 15 0RF ondansetron 4 mg tablet,disintegrating 4 mg PO Q8H PRN (Reason: nausea and vomiting) Qty: 15 0RF Follow-up/Referrals: Kisha Tyler MD [Physician] - (UROLOGY) Kal Valdivia MD [Physician] - (GENERAL SURGERY) PHYSICIAN NOT ON STAFF,NONSTAFF [Primary Care Provider] - Time of Disposition: 00:16
[2024-08-12] MEDS: MORPHINE SULFATE (*CRX) 4 MG/ML INJ IV PUSH (20:09)
[2024-08-12] MEDS: ONDANSETRON INJ 4 MG/2 ML VIAL IV PUSH (20:09)
[2024-08-13] VITALS: O2SAT 96
[2024-08-13 00:19] VITALS: O2SAT 100
[2024-08-13 00:35] VITALS: O2SAT 100
[2024-08-13 00:37] VITALS: BP 107/69; PULSE 65; RESP 14; TEMP 36.7; O2SAT 99
== END 2024-08-13 00:38 | disposition home or self-care (01) ==
PROVIDERS: Student in an Organized Health Care Education/Training Program; Emergency Provider Physician Assistant
DX: R10.11 Right upper quadrant pain (principal); N28.89 Other specified disorders of kidney and ureter; R93.421 Abnormal radiologic findings on diagnostic imaging of right kidney
CPT/HCPCS: 36415; 74177; 80053; 81003; 81025; 83690; 85025; 96374; 96375; 99284; J2270; J2405; Q9967

== ENCOUNTER 2024-09-06 09:53 | Outpatient (CLI) | payer OTHER, SELFPAY ==
--- NOTE | ~2024-09-06 | NM_ITS ---
History: Right upper quadrant pain Interpretation: Following intravenous administration of 4.8 mCi. of technetium 99 Choletec, serial im ages obtained reveal prompt concentration by the liver which is normal in size and without any focal abnormalities. There is normal excretion from the liver. The gallbladder and small bowel are visual ized by 60 minutes. At 60 minutes the patient intravenously received 0.02 mcg/kg of CCK and 30 cc normal saline delivered by palm over 60 minutes. The patient was imaged for approximately the next 40 minutes. Regions of in terest were drawn about the gallbladder and background and gallbladder ejection fraction calculated. The gallbladder ejection fraction measures 64%. ( GBEF will measure > or = 49%, in 95% of normals. GBEF will measure > or= 38% in 99% of normals ) Impression: Normal hepatobiliary scan. No evidence of cystic duct or common bile duct obstruction. This effecti vely excludes acute cholecystitis. Normal gallbladder ejection fraction of 64%. Rosa et al.,Sincalide-Stimulated Cholescintigraphy: A Multicenter Investigation to Determine Opti mal Infusion Methodology and Gallbladder Ejection Fraction Normal Values. JNM. Vol 51. No.2. Jun 2009 . Reviewed, dictated and finalized at location . Impression: Normal hepatobiliary scan. No evidence of cystic duct or common bile duct obst ruction. This effectively excludes acute cholecystitis. Normal gallbladder ejection fraction of 64%. Rosa et al.,Sincalide-Stimulated Cholescintigraphy: A Multicenter Investiga tion to Determine Optimal Infusion Methodology and Gallbladder Ejection Fractio n Normal Values. JNM. Vol 51. No.2. Jun 2009.
--- OUTSIDE RECORDS SUMMARY | 2024-09-06 11:00 | XMS_ITS | Encounter Summary ---
Author Organization [facility] Address [address] [place] [address] Care Team Providers Care Airfreight Loading Supervisor Name Role Phone Porsha Garrido MD Primary Care Provider Carina Rey MD Unavailable Unavailable Gary Burgess MD Unavailable [phone] Evelyn García RN Unavailable [phone] Porsha Garrido MD Unavailable [phone] Joselito Gold MD Unavailable [phone] Porsha Garrido MD Unavailable [phone] Joselito Gold MD Unavailable [phone] Jolie Marrero PA-C Unavailable [phone] Porsha Garrido MD Unavailable [phone] Porsha Garrido MD Unavailable [phone] Joselito Casarez MD Unavailable Unavailable Michelle Nogueira RESIDENTIAL SUBSTANCE ABUSE COUNSELOR-CORE BAKER Unavailable [phone] Porsha Garrido MD Unavailable [phone] Paloma Romo Unavailable Marjorie Weston DO Unavailable Porsha Garrido MD Unavailable Encounter Details Date Type Department Care Team (Late Contact Info) Description 10/05/2012 [facility] Outpatient Visit [facility] [address] [place] [address] Unknown, Provider Social History Tobacco Use Types Packs/Day Years Used Date Smoking Tobacco: Never Smokeless Tobacco: Never Alcohol Use Standard Drinks/Week Comments Yes 0 (1 standard drink = 0.6 oz pur e alcohol) occasionally Comments No Sex and Gender Information Value Date Recorded Sex Assigned at Not on file Legal Sex Female 12:18 PM CHIEF ACCOUNTANT Gender Identity Female 01/16/2019 9:49 AM CDT Sexual Orientation Not on file 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 Not on file Not on f ile documented as of this encounter Plan of Treatment Upcoming Encounters Date Type Department Care Team (Late st Contact Info) Description 10/05/2024 10:00 AM CDT Office Visit [facility] Breast Care - Surgery [address] [place] [phone] Satnam Nicole MD [address] [place] [phone] 10/12/2024 8:15 AM CDT Video Visit [facility] Medical Group - Family Medicine [address] [place] [address] Porsha Garrido MD [address] [place] [address] documented as of this encounter Visit Diagnoses Not on filedocumented in this encounter Additional Health Concerns Infection Onset Date Last Indicated Resolved Time COVID-19 Under Investigation 04/01/2020 04/01/2020 04/02/2020 2:40 PM CHIEF ACCOUNTANT COVID-19 Confirmed 04/01/2020 04/01/2020 11/27/202 0 4:34 AM CHIEF ACCOUNTANT documented as of this encounter Care Teams Airfreight Loading Supervisor Relationship Specialty Start Date End Date Porsha Garrido MD [address] [place] [address] PCP - General 01/31/11 Porsha Garrido MD [address] [place] [address] PCP - Attributed-[employer] Commercial 09/13/18 11/01/19 Joselito Gold MD [address] [place] [address] PCP - Attributed-[employer] 07/15/19 08/14/19 Porsha Garrido MD [address] [place] [address] PCP - Attributed-[employer] 08/15/19 07/13/20 Jolie Marrero PA-C [address] [place] [phone] PCP - Attributed-[employer] 07/14/20 08/13/20 Porsha Garrido MD [address] [place] [address]656 PCP - Attributed-[employer] 08/14/20 12/29/21 Porsha Garrido MD [address] [place] [address] PCP - Attributed-[place] Commercial 05/16/22 08/31/22 Porsha Garrido MD [address] [place] [address] [place] [address] PCP - Attributed-[place] Commercial 11/13/22 07/31/24 Porsha Garrido MD [address] [place] [address] PCP - Attributed-[employer] 10/29/16 09/14/17 Carina Rey MD [address] [place] [address] Obstetrics and Gynecology 10/27/11 07/14/20 Gary Burgess MD [address] [place] [address] Gastroenterology 08/22/13 Evelyn García, RN It Consulting Manager 01/05/15 06/07/24 Joselito Gold MD [address] [place] [address] Obstetrics and Gynecology 07/15/20 5 Joselito Casarez MD [address] [place] [phone] Hematology and Oncology 09/03/22 05/26/23 Michelle Nogueira, RESIDENTIAL SUBSTANCE ABUSE COUNSELOR-CORE BAKER [address] [place] [address] [place] [address] Nurse Practitioner Nurse Practitioner Adult Health 09/03/22 Paloma Romo Care Coordination Specialist Care Management 12/13/23 12/13/23 Marjorie Weston DO [address] [facility] [address] [place] [phone] Rheumatology 05/31/24 documented as of this encounter
--- OUTSIDE RECORDS SUMMARY | 2024-09-06 11:00 | XMS_ITS | Encounter Summary ---
Author Organization [facility] Address [address] [facility] [address] Care Team Providers Care Vice President Of Business Development Name Role Phone Porsha Garrido MD Primary Care Provider Carina Rey MD Unavailable Unavailable Gary Burgess MD Unavailable [phone] Evelyn García RN Unavailable [phone] Porsha Garrido MD Unavailable [phone] Joselito Gold MD Unavailable [phone] Porsha Garrido MD Unavailable [phone] Joselito Gold MD Unavailable [phone] Jolie Marrero PA-C Unavailable [phone] Porsha Garrido MD Unavailable [phone] Porsha Garrido MD Unavailable [phone] Joselito Casarez MD Unavailable Unavailable Michelle Nogueira CARDIOLOGY ASSOCIATE-SAUSAGE CANNER Unavailable [phone] Porsha Garrido MD Unavailable Paloma Romo Unavailable Marjorie Weston DO Unavailable Porsha Garrido MD Unavailable [phone] Encounter Details Date Type Department Care Team (Late Contact Info) Description 10/11/2014 [facility] Outpatient Visit [facility] Orthopedics - Radiology [address] [place] [address] Meir Luo DO [address] [place] [address] Social History Tobacco Use Types Packs/Day Years Used Date Smoking Tobacco: Never Smokeless Tobacco: Never Alcohol Use Standard Drinks/Week Comments Yes 0 (1 standard drink = 0.6 oz pur e alcohol) occasionally Comments No Sex and Gender Information Value Date Recorded Sex Assigned at Not on file Legal Sex Female 12:18 PM QUALITY AND RELIABILITY ENGINEER Gender Identity Female 01/16/2019 9:49 AM CDT Sexual Orientation Not on file 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 on file Not on f ile documented as of this encounter Plan of Treatment Upcoming Encounters Date Type Department Care Team (Late st Contact Info) Description 10/05/2024 10:00 AM CDT Office Visit [facility] Breast Care - Surgery [address] [place] [phone] Satnam Nicole MD [address] [place] [phone] 10/12/2024 8:15 AM CDT Video Visit [facility] Medical Group - Family Medicine [address] [place] [address] [phone] Porsha Garrido MD [address] [place] [address] documented as of this encounter Visit Diagnoses Not on filedocumented in this encounter Additional Health Concerns Infection Onset Date Last Indicated Resolved Time COVID-19 Under Investigation 04/01/2020 04/01/2020 04/02/2020 2:40 PM QUALITY AND RELIABILITY ENGINEER COVID-19 Confirmed 04/01/2020 04/01/2020 0 4:34 AM QUALITY AND RELIABILITY ENGINEER documented as of this encounter Care Teams Vice President Of Business Development Relationship Specialty Start Date End Date Porsha Garrido MD [address] [place] [phone] PCP - General 01/31/11 Porsha Garrido MD [address] [place] [address] PCP - Attributed-[employer] Commercial 09/13/18 11/01/19 Joselito Gold MD [address] [place] [address] PCP - Attributed-[employer] 07/15/19 08/14/19 Porsha Garrido MD [address] [place] [address]672 PCP - Attributed-[employer] 08/15/19 07/13/20 Jolie Marrero PA-C [address] [place] [phone] PCP - Attributed-[employer] 07/14/20 08/13/20 Porsha Garrido MD [address] [place] [address] PCP - Attributed-[employer] 08/14/20 12/29/21 Porsha Garrido MD [address] [place] [address] [place] [address] PCP - Attributed-[place] Commercial 05/16/22 08/31/22 Porsha Garrido MD [address] [place] [address] [place] [address] PCP - Attributed-[place] Commercial 11/13/22 07/31/24 Porsha Garrido MD [address] [place] [address] [place] [address] PCP - Attributed-[employer] 10/29/16 09/14/17 Carina Rey MD [address] [place] [address] [place] [address] Obstetrics and Gynecology 10/27/11 07/14/20 Gary Burgess MD [address] [place] [address] [address] [place] [address] Gastroenterology 08/22/13 Evelyn García, RN Icu Nurse 01/05/15 06/07/24 Joselito Gold MD [address] [place] [address] Obstetrics and Gynecology 07/15/20 5 Joselito Casarez MD [address] [place] [address] [address] [place] [address] Hematology and Oncology 09/03/22 05/26/23 Michelle Nogueira APRN-SAUSAGE CANNER [address] [place] [address] [address] [place] [address] Nurse Practitioner Nurse Practitioner Adult Health 09/03/22 Paloma Romo Care Coordination Specialist Care Management 12/13/23 12/13/23 Marjorie Weston DO [address] [phone] Rheumatology 05/31/24 documented as of this encounter
--- OUTSIDE RECORDS SUMMARY | 2024-09-06 11:00 | XMS_ITS | Encounter Summary ---
Author Organization [facility] Address [address] [place] [address] Care Team Providers Care Information Assurance Name Role Phone Porsha Garrido MD Primary Care Provider Carina Rey MD Unavailable Unavailable Gary Burgess MD Unavailable [phone] Evelyn García RN Unavailable [phone] Porsha Garrido MD Unavailable [phone] Joselito Gold MD Unavailable [phone] Porsha Garrido MD Unavailable [phone] Joselito Gold MD Unavailable [phone] Jolie Marrero PA-C Unavailable [phone] Porsha Garrido MD Unavailable [phone] Porsha Garrido MD Unavailable [phone] Joselito Casarez MD Unavailable Unavailable Michelle Nogueira COIN MACHINE COLLECTOR SUPERVISOR-ROAD MANAGER Unavailable +[phone] Porsha Garrido MD Unavailable [phone] Paloma Romo Unavailable Marjorie Weston DO Unavailable Porsha Garrido MD Unavailable Encounter Details Date Type Department Care Team (Late st Contact Info) Description 08/26/2016 [facility] Outpatient Visit [facility]AB [address] [place] [address] Document, Scanned Social History Tobacco Use Types Packs/Day Years Used Date Smoking Tobacco: Never Smokeless Tobacco: Never Alcohol Use Standard Drinks/Week Comments No 0 (1 standard drink = 0.6 oz pur e alcohol) Comments No Sex and Gender Information Value Date Recorded Sex Assigned at Not on file Legal Sex Female 12:18 PM INVESTMENT UNDERWRITER Gender Identity Female 01/16/2019 9:49 AM CDT Sexual Orientation Not on file 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 Answer Date of Assessment Author No 01/06/2015 12:02 PM CDT Kristen Garcia RN * Is person blind or have serious difficulty seeing? Answer Date of Assessment Author No 01/06/2015 12:02 PM CDT Kristen Garcia RN * Does person have serious difficulty walking/climbing stairs? Answer Date of Assessment Author No 01/06/2015 12:02 PM CDT Kristen Garcia RN * Does person have difficulty dressing/bathing? Answer Date of Assessment Author No 01/06/2015 12:02 PM CDT Kristen Garcia, RN * Does person have difficulty doing errands alone? Answer Date of Assessment Author No 01/06/2015 12:02 PM UNAT Kristen Garcia RN documented as of this encounter Mental Status * Does person have difficulty concentrating/remembering/making decisions? Answer Entry Date Author No 01/06/2015 12:02 PM UNAT Kristen Garcia RN documented in this encounter Plan of Treatment Upcoming Encounters Date Type Department Care Team (Late st Contact Info) Description 10/05/2024 10:00 AM CDT Office Visit [facility] Breast Care - Surgery [address] [place] [address] Satnam Nicole MD [address] [facility] [address] [place] [address] 10/12/2024 8:15 AM CDT Video Visit [facility] Medical Group - Family Medicine [address] [place] [address] [phone] Porsha Garrido MD [address] [place] [address] documented as of this encounter Visit Diagnoses Not on filedocumented in this encounter Additional Health Concerns Infection Onset Date Last Indicated Resolved Time COVID-19 Under Investigation 04/01/2020 04/01/2020 04/02/2020 2:40 PM INVESTMENT UNDERWRITER COVID-19 Confirmed 04/01/2020 04/01/2020 0 4:34 AM INVESTMENT UNDERWRITER documented as of this encounter Care Teams Information Assurance Relationship Specialty Start Date End Date Porsha Garrido MD [address] [place] [address] PCP - General 01/31/11 Porsha Garrido MD [address] [place] [address] PCP - Attributed-C Commercial 09/13/18 11/01/19 Joselito Gold MD [address] [place] [address] PCP - Attributed-[employer] 07/15/19 08/14/19 Porsha Garrido MD [address] [place] [address] PCP - Attributed-Cigna 08/15/19 07/13/20 Jolie Marrero PA-C [address] [place] [address] [place] [phone] PCP - Attributed-Cigna 07/14/20 08/13/20 Porsha Garrido MD [address] [place] [address]179 PCP - Attributed-Cigna 08/14/20 12/29/21 Porsha Garrido MD [address] [place] [address]67 PCP - Attributed-[place] Commercial 05/16/22 08/31/22 Porsha Garrido MD [address] [place] [address]34 PCP - Attributed-[place] Commercial 11/13/22 07/31/24 Porsha Garrido MD [address] [place] [address] PCP - Attributed-Ex[employer] Choice 10/29/16 09/14/17 Carina Rey MD [address] [place] [address] Obstetrics and Gynecology 10/27/11 07/14/20 Gary Burgess MD [address] [place] [address] Gastroenterology 08/22/13 Evelyn García RN Rack Pusher 01/05/15 06/07/24 Joselito Gold MD [address] [place] [address] Obstetrics and Gynecology 07/15/20 5 Joselito Casarez MD [address] [facility] [address] [place] [address] Hematology and Oncology 09/03/22 05/26/23 Michelle Nogueira, COIN MACHINE COLLECTOR SUPERVISOR-ROAD MANAGER [address] [facility] [address] [place] [address] Nurse Practitioner Nurse Practitioner Adult Health 09/03/22 Paloma Romo Care Coordination Specialist Care Management 12/13/23 12/13/23 Marjorie Weston DO [address] [facility] [address] [place] [phone] Rheumatology 05/31/24 documented as of this encounter
--- OUTSIDE RECORDS SUMMARY | 2024-09-06 11:00 | XMS_ITS | Encounter Summary ---
Author Organization [facility] Address [address] [place] [address] Care Team Providers Care Process Treater Name Role Phone Porsha Garrido MD Primary Care Provider Encounter Details Date Type Department Care Team (Late st Contact Info) Description 12/01/2000 Outpatient Historical [facility] [address] [facility] [place] [address] [place] [phone] Deshawn Kitchen MD NO ADDRESS ON FILE Social History Tobacco Use Types Packs/Day Years Used Date Smoking Tobacco: Never Assessed Comments Unknown Sex and Gender Information Value Date Recorded Sex Assigned at Not on file Legal Sex Female 3:08 AM SOFTWARE APPLICATIONS ARCHITECT Gender Identity Not on file Sexual Orientation Not on file documented as of this encounter Plan of Treatment Upcoming Encounters Date Type Department Care Team (Late st Contact Info) Description 06/25/2025 3:10 PM SOFTWARE APPLICATIONS ARCHITECT Office Visit [facility] Gastroenterology [place] [address] [address] [place] [address] Gary Burgess MD [address] [id number] [place] [address] 08/08/2025 10:30 AM CDT Office Visit [facility] Neurology [address] [place] [address] [place] [address] Rama De La Paz MD [address] [facility] [address] [place] [address] documented as of this encounter Visit Diagnoses Not on filedocumented in this encounter Additional Health Concerns Infection Onset Date Last Indicated Resolved Time R/O C. diff 05/21/2020 05/21/2020 05/21/2020 1:01 PM SOFTWARE APPLICATIONS ARCHITECT R/O C. diff 10/31/2021 10/30/2021 10/31/2021 3:51 PM CDT R/O C. diff 09/01/2022 08/31/2022 09/01/2022 5:17 PM CDT documented as of this encounter Care Teams Process Treater Relationship Specialty Start Date End Date Porsha Garrido MD [address] [place] [address] PCP - General 03/04/09 documented as of this encounter
--- OUTSIDE RECORDS SUMMARY | 2024-09-06 11:00 | XMS_ITS | Encounter Summary ---
Author Organization [facility] Address [address] [place] [address] Care Team Providers Care Resource Management Planner Name Role Phone Porsha Garrido MD Primary Care Provider Encounter Details Date Type Department Care Team (Late st Contact Info) Description 11/17/2000 Outpatient Historical [facility] Pediatrics [place] [address] [facility] [place] [phone] Deshawn Kitchen MD NO ADDRESS ON FILE Social History Tobacco Use Types Packs/Day Years Used Date Smoking Tobacco: Never Assessed Comments Unknown Sex and Gender Information Value Date Recorded Sex Assigned at Not on file Legal Sex Female 3:08 AM VISUAL DISPLAY MANAGER Gender Identity Not on file Sexual Orientation Not on file documented as of this encounter Plan of Treatment Upcoming Encounters Date Type Department Care Team (Late st Contact Info) Description 06/25/2025 3:10 PM VISUAL DISPLAY MANAGER Office Visit [facility] Gastroenterology [place] [address] [place] [address] [place] [address] Gary Burgess MD [address] [id number] [place] [address] 08/08/2025 10:30 AM CDT Office Visit [facility] Neurology [address] [place] [address] [place] [address] Rama De La Paz MD [address] [facility] [address] [place] [address] documented as of this encounter Visit Diagnoses Not on filedocumented in this encounter Additional Health Concerns Infection Onset Date Last Indicated Resolved Time R/O C. diff 05/21/2020 05/21/2020 05/21/2020 1:01 PM VISUAL DISPLAY MANAGER R/O C. diff 10/31/2021 10/30/2021 10/31/2021 3:51 PM CDT R/O C. diff 09/01/2022 08/31/2022 09/01/2022 5:17 PM CDT documented as of this encounter Care Teams Resource Management Planner Relationship Specialty Start Date End Date Porsha Garrido MD [address] [place] [address] PCP - General 03/04/09 documented as of this encounter
--- OUTSIDE RECORDS SUMMARY | 2024-09-06 11:00 | XMS_ITS | Encounter Summary ---
Author Organization [facility] Address [address] [place] [address] Care Team Providers Care Harbor Pilot Name Role Phone Porsha Garrido MD Primary Care Provider Encounter Details Date Type Department Care Team (Late st Contact Info) Description 01/26/2001 Outpatient Historical [facility] Pediatrics [place] [address] [facility] [place] [address] Ally Keller MD [address] [facility] [address] [place] [address] Social History Tobacco Use Types Packs/Day Years Used Date Smoking Tobacco: Never Assessed Comments Unknown Sex and Gender Information Value Date Recorded Sex Assigned at Not on file Legal Sex Female 3:08 AM FRUIT HARVEST MACHINE OPERATOR Gender Identity Not on file Sexual Orientation Not on file documented as of this encounter Plan of Treatment Upcoming Encounters Date Type Department Care Team (Late st Contact Info) Description 06/25/2025 3:10 PM FRUIT HARVEST MACHINE OPERATOR Office Visit [facility] Gastroenterology [place] [address] [place] [address] [place] [address] Gary Burgess MD [id number] [place] [address] 08/08/2025 10:30 AM CDT Office Visit [facility] Neurology [address] [facility] [address] [place] [address] Rama De La Paz MD [address] [facility] [address] [place] [address] documented as of this encounter Visit Diagnoses Not on filedocumented in this encounter Additional Health Concerns Infection Onset Date Last Indicated Resolved Time R/O C. diff 05/21/2020 05/21/2020 05/21/2020 1:01 PM FRUIT HARVEST MACHINE OPERATOR R/O C. diff 10/31/2021 10/30/2021 10/31/2021 3:51 PM CDT R/O C. diff 09/01/2022 08/31/2022 09/01/2022 5:17 PM CDT documented as of this encounter Care Teams Harbor Pilot Relationship Specialty Start Date End Date Porsha Garrido MD [address] [place] [address] PCP - General 03/04/09 documented as of this encounter
--- OUTSIDE RECORDS SUMMARY | 2024-09-06 11:00 | XMS_ITS | Encounter Summary ---
Author Organization [facility] Address [address] [facility] [place] [address] Care Team Providers Care Medical Transcription Name Role Phone Porsha Garrido MD Primary Care Provider [phone] Carina Rey MD Unavailable Unavailable Gary Burgess MD Unavailable [phone] Evelyn García RN Unavailable [phone] Porsha Garrido MD Unavailable [phone] Joselito Gold MD Unavailable [phone] Porsha Garrido MD Unavailable [phone] Joselito Gold MD Unavailable [phone] Jolie Marrero PA-C Unavailable [phone] Porsha Garrido MD Unavailable [phone] Porsha Garrido MD Unavailable [phone] Joselito Casarez MD Unavailable Unavailable Michelle Nogueira CLERICAL COORDINATOR-RADIOLOGY CT TECHNOLOGIST Unavailable +[phone] Porsha Garrido MD Unavailable [phone] Paloma Romo Unavailable Marjorie Weston DO Unavailable Porsha Garrido MD Unavailable Encounter Details Date Type Department Care Team (Late st Contact Info) Description 09/30/2014 Therapy Visit [facility]TERNAL [facility] DEPT Unknown, Provider Social History Tobacco Use Types Packs/Day Years Used Date Smoking Tobacco: Never Smokeless Tobacco: Never Alcohol Use Standard Drinks/Week Comments Yes 0 (1 standard drink = 0.6 oz pur e alcohol) occasionally Comments No Sex and Gender Information Value Date Recorded Sex Assigned at Not on file Legal Sex Female 12:18 PM CULVERT INSTALLER Gender Identity Female 01/16/2019 9:49 AM CDT Sexual Orientation Not on file 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 on file Not on f ile documented as of this encounter Plan of Treatment Upcoming Encounters Date Type Department Care Team (Late Contact Info) Description 10/05/2024 10:00 AM CDT Office Visit [facility] Breast Care - Surgery [address] [place] [phone] Satnam Nicole MD [address] [place] [address] 10/12/2024 8:15 AM CDT Video Visit [facility] Medical Group - Family Medicine [address] [place] [address] Porsha Garrido MD [address] [place] [address] documented as of this encounter Visit Diagnoses Not on filedocumented in this encounter Additional Health Concerns Infection Onset Date Last Indicated Resolved Time COVID-19 Under Investigation 04/01/2020 04/01/2020 04/02/2020 2:40 PM CULVERT INSTALLER COVID-19 Confirmed 04/01/2020 04/01/2020 0 4:34 AM CULVERT INSTALLER documented as of this encounter Care Teams Medical Transcription Relationship Specialty Start Date End Date Porsha Garrido MD [address] [place] [address] PCP - General 01/31/11 Porsha Garrido MD [address] [place] [address] 14053 PCP - Attributed-[employer] Commercial 09/13/18 11/01/19 Joselito Gold MD [address] [place] [address] PCP - Attributed-Cigna 07/15/19 08/14/19 Porsha Garrido MD [address] [place] [address] PCP - Attributed-Cigna 08/15/19 07/13/20 Jolie Marrero PA-C [address] [place] [phone] PCP - Attributed-Cigna 07/14/20 08/13/20 Porsha Garrido MD [address] [place] [address]113 PCP - Attributed-Cigna 08/14/20 12/29/21 Porsha Garrido MD [address] [place] [address]166 PCP - Attributed-[place] Commercial 05/16/22 08/31/22 Porsha Garrido MD [address] [place] [address] [address] [place] [address] PCP - Attributed-[place] Commercial 11/13/22 07/31/24 Porsha Garrido MD [address] [place] [address] [address] [place] [address] PCP - Attributed-Ex[employer] Choice 10/29/16 09/14/17 Carina Rey MD [address] [place] [address] [address] [place] [address] Obstetrics and Gynecology 10/27/11 07/14/20 Gary Burgess MD [address] [place] [address] [address] [place] [address] Gastroenterology 08/22/13 Evelyn García RN Powertrain Control Systems Engineer 01/05/15 06/07/24 Joselito Gold MD [address] [place] [address] Obstetrics and Gynecology 07/15/20 5 Joselito Casarez MD [address] [place] [address] [address] [place] [address] Hematology and Oncology 09/03/22 05/26/23 Michelle Nogueira, CLERICAL COORDINATOR-RADIOLOGY CT TECHNOLOGIST [address] [place] [address] [address] [place] [address] Nurse Practitioner Nurse Practitioner Adult Health 09/03/22 Paloma Romo Care Coordination Specialist Care Management 12/13/23 12/13/23 Marjorie Weston DO [address] [place] [address] [address] [place] [address] Rheumatology 05/31/24 documented as of this encounter
--- OUTSIDE RECORDS SUMMARY | 2024-09-06 11:00 | XMS_ITS | Encounter Summary ---
Author Organization [facility] Address [address] [place] [address] Care Team Providers Care Organ Teacher Name Role Phone Porsha Garrido MD Primary Care Provider Carina Rey MD Unavailable Unavailable Gary Burgess MD Unavailable [phone] Evelyn García RN Unavailable [phone] Porsha Garrido MD Unavailable [phone] Joselito Gold MD Unavailable [phone] Porsha Garrido MD Unavailable [phone] Joselito Gold MD Unavailable [phone] Jolie Marrero PA-C Unavailable [phone] Porsha Garrido MD Unavailable [phone] Porsha Garrido MD Unavailable [phone] Joselito Casarez MD Unavailable Unavailable Michelle Nogueira VENEER CLIPPER-REMOTE SENSING PROGRAM MANAGER Unavailable [phone] Porsha Garrido MD Unavailable [phone] Paloma Romo Unavailable Marjorie Weston DO Unavailable Porsha Garrido MD Unavailable Encounter Details Date Type Department Care Team (Late Contact Info) Description 09/11/2012 [facility] Outpatient Visit [facility] REHAB [address] [place] [address] Unknown, Provider Social History Tobacco Use Types Packs/Day Years Used Date Smoking Tobacco: Never Smokeless Tobacco: Never Alcohol Use Standard Drinks/Week Comments Yes 0 (1 standard drink = 0.6 oz pur e alcohol) occasionally Comments No Sex and Gender Information Value Date Recorded Sex Assigned at Not on file Legal Sex Female 12:18 PM THERAPY TEACHER Gender Identity Female 01/16/2019 9:49 AM CDT Sexual Orientation Not on file 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 on file Not on f ile documented as of this encounter Plan of Treatment Upcoming Encounters Date Type Department Care Team (Late st Contact Info) Description 10/05/2024 10:00 AM CDT Office Visit [facility] Breast Care - Surgery [address] [place] [phone] Satnam Nicole MD [address] [place] [phone] 10/12/2024 8:15 AM CDT Video Visit [facility] Medical Group - Family Medicine [address] [place] [address] Porsha Garrido MD [address] [place] [address] documented as of this encounter Visit Diagnoses Not on filedocumented in this encounter Additional Health Concerns Infection Onset Date Last Indicated Resolved Time COVID-19 Under Investigation 04/01/2020 04/01/2020 04/02/2020 2:40 PM THERAPY TEACHER COVID-19 Confirmed 04/01/2020 04/01/2020 11/27/202 0 4:34 AM THERAPY TEACHER documented as of this encounter Care Teams Organ Teacher Relationship Specialty Start Date End Date Porsha Garrido MD [address] [place] [address] PCP - General 01/31/11 Porsha Garrido MD [address] [place] [address] PCP - Attributed-[facility] Commercial 09/13/18 11/01/19 Joselito Gold MD [address] [place] [address] PCP - Attributed-Cigna 07/15/19 08/14/19 Porsha Garrido MD [address] [place] [address] PCP - Attributed-Cigna 08/15/19 07/13/20 Jolie Marrero PA-C [address] [place] [phone] PCP - Attributed-Cigna 07/14/20 08/13/20 Porsha Garrido MD [address] [place] [address] PCP - Attributed-Cigna 08/14/20 12/29/21 Porsha Garrido MD [address] [place] [address] PCP - Attributed-[place] Commercial 05/16/22 08/31/22 Porsha Garrido MD [address] [place] [address] [place] [address] PCP - Attributed-[place] Commercial 11/13/22 07/31/24 Porsha Garrido MD [address] [place] [address] PCP - Attributed-Exclusive Choice 10/29/16 09/14/17 Carina Rey MD [address] [place] [address] Obstetrics and Gynecology 10/27/11 07/14/20 Gary Burgess MD [address] [place] [address] Gastroenterology 08/22/13 Evelyn García, RN Bridges Supervisor 01/05/15 06/07/24 Joselito Gold MD [address] [place] [address] Obstetrics and Gynecology 07/15/20 5 Joselito Casarez MD [address] [place] [phone] Hematology and Oncology 09/03/22 05/26/23 Michelle Nogueira, VENEER CLIPPER-REMOTE SENSING PROGRAM MANAGER [address] [place] [address] [place] [address] Nurse Practitioner Nurse Practitioner Adult Health 09/03/22 Plaoma Romo Care Coordination Specialist Care Management 12/13/23 12/13/23 Marjorie Weston DO [address] [facility] [address] [place] [address] Rheumatology 05/31/24 documented as of this encounter
--- OUTSIDE RECORDS SUMMARY | 2024-09-06 11:00 | XMS_ITS | Encounter Summary ---
Author Organization [facility] Address [address] [facility] [place] [address] Care Team Providers Care Cannon Fire Direction Specialist Name Role Phone Porsha Garrido MD Primary Care Provider Gary Burgess MD Unavailable [phone] Evelyn Garíca RN Unavailable [phone] Joselito Gold MD Unavailable [phone] Michelle Nogueira ADDICTIONS THERAPIST-MATH TEACHER Unavailable [phone] Porsha Garrido MD Unavailable [phone] Marjorie Weston DO Unavailable Reason for Visit * Reason Onset Date Comments MEDICATION REFILL 04/16/2024 Encounter Details Date Type Department Care Team (Late st Contact Info) Description 04/16/2024 Refill [facility] - SCALE RECLAMATION TENDER [facility] [address] [address] Joselito Gold MD [address] [place] [id number] MEDICATION REFILL Social History Tobacco Use [...] money to get more. 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 Answer Date of Assessment Author No 05/03/2019 11:03 AM Francisco Javier Valadez RN * Is person blind or have serious difficulty seeing? Answer Date of Assessment Author No 05/03/2019 11:03 AM Francisco Javier Valadez RN * Does person have serious difficulty walking/climbing stairs? Answer Date of Assessment Author No 05/03/2019 11:03 AM Francisco Javier Valadez RN * Does person have difficulty dressing/bathing? Answer Date of Assessment Author No 05/03/2019 11:03 AM Francisco Javier Valadez RN * Does person have difficulty doing errands alone? Answer Date of Assessment Author No 05/03/2019 11:03 AM Francisco Javier Valadez RN documented as of this encounter Mental Status * Does person have difficulty concentrating/remembering/making decisions? Answer Entry Date Author No 05/03/2019 11:03 AM Francisco Javier Valadez RN documented in this encounter Plan of Treatment Upcoming Encounters Date Type Department Care Team (Late st Contact Info) Description 10/05/2024 10:00 AM CDT Office Visit [facility] Breast Care - Surgery [address] [place] [phone] Satnam Nicole MD [address] [place] [place] [address] 10 [place] [phone] 10/12/2024 8:15 AM CDT Video Visit [facility] Medical [facility] - Family Medicine [address] [place] [address] [phone] Porsha Garrido MD [address] [place] [phone] documented as of this encounter Visit Diagnoses Not on filedocumented in this encounter Care Teams Cannon Fire Direction Specialist Relationship Specialty Start Date End Date Porsha Garrido MD [address] [place] [address] [phone] PCP - General 01/31/11 Porsha Garrido MD [address] [place] [address] PCP - Attributed-[place] [employer] 11/13/22 07/31/24 Gary Burgess MD [address] [place] [address] [address] [place] [address] Gastroenterology 08/22/13 Evelyn García RN Net Front End Developer 01/05/15 06/07/24 Joselito Gold MD [address] [place] [address] Obstetrics and Gynecology 07/15/20 5 Michelle Nogueira APRN-KESHA [address] [facility] [address] [place] [address] Nurse Practitioner Nurse Practitioner Adult Health 09/03/22 Marjorie Weston DO [address] [facility] [address] [place] [address] Rheumatology 05/31/24 documented as of this encounter
--- OUTSIDE RECORDS SUMMARY | 2024-09-06 11:00 | XMS_ITS | Clinical Summary ---
Author Organization [facility] Address [address] [facility] [place] [address] Care Team Providers Care Credit Investigator Name Role Phone Porsha Garrido MD Primary Care Provider [phone] Gary Burgess MD Unavailable [phone] Michelle Nogueira APRN-GRAIN MERCHANDISER Unavailable [phone] Marjorie Weston DO Unavailable Source Comments [facility],non-owned Affiliates and Associated Physician Practices is amultiple site organization consisting of ambulatory clinics and hospital sitesin [place], [place], [place] and [place]. This disclosure is being madepursuant to the Care Everywhere program and may not contain all information available regarding this patient. Last updated 18.[facility] Allergies Active Allergy Reactions Criticality Noted Date Comments Doxycycline Urticaria,Itching Medium 05/07/2014 Sulfa Drugs Rash Medium 04/17/2010 Azithromycin Dihydrate Diarrhea High 09/17/2009 Medications * Be aware that medications may not be up to date on this document. Alwaysverify current medications with the patient. Cetirizine HCl (ZYRTEC PO) Take 1 tablet by mouth once daily Congestion/all ergies Active fluticasone propionate (FLONASE) 50 MCG/ACT nasal spray [place] 2 (two) sprays into the nose once daily Active pantoprazole EC (PROTONIX) 40 MG tablet Take 1 (one) tablet by mouth once daily 06/30/19 22 Active albuterol HFA (PROVENTIL; VENTOLIN; PROAIR) 108 (90 Base) MCG/ACT inhalerIndicati ons:Upper respiratory tract infection, unspecified type Inhale 2 (two) puffs by mouth every 6 hours as needed for Shortness of Breath, Wheezing or Cough 8 g 07/06/19 22 Active baclofen (Lioresal) 5 MG TABS Take 1 (one) tablet by mouth every 12 hours as needed 04/15/20 22 Active budesonide-form oterol (Symbicort) 160-4.5 MCG/ACT inhaler 04/22/20 23 Active vedolizumab (Entyvio) injection 300 (three hundred) mg by Intravenous route once Every 8 weeks Active valACYclovir (Valtrex) 500 MG tablet TAKE 1 TABLET BY MOUTH TWICE A DAY 180 tablet 1 04/17/20 24 Active hydrOXYzine HCl (Atarax) 25 MG tabletIndicatio ns:JOHN (generalized anxiety disorder) Take 1 (one) tablet to 2 (two) tablets by mouth 4 times daily as needed (anxiety) 60 tablet 06/15/19 25 Active Additional Information Patient not taking.Reported on 07/11/2024 ALPRAZolam (Xanax) 0.5 MG tabletIndicatio ns:JOHN (generalized anxiety disorder) Take 1 (one) tablet by mouth 2 times daily as needed for Anxiety 60 tablet 5 09/01/19 25 Active escitalopram (Lexapro) 10 MG tablet Take 1 (one) tablet by mouth once daily 90 tablet 09/05/19 25 Active escitalopram (Lexapro) 10 MG tablet Take 1 (one) tablet by mouth once daily 30 tablet 07/18/19 25 025 Discontinued ALPRAZolam (Xanax) 0.5 MG tabletIndicatio ns:JOHN (generalized anxiety disorder) Take 1 (one) tablet by mouth 2 times daily as needed for Anxiety 60 tablet 08/04/19 25 025 Discontinued escitalopram (Lexapro) 10 MG tablet Take 1 (one) tablet by mouth once daily 30 tablet 08/10/19 25 025 Discontinued Active Problems Problem Noted Date Diagnosed [...] Encounters Date Type Department Care Team Description 09/02/2024 Refill [facility] Family Medicine [address] [place] [address] Porsha Garrido MD Med Change Request 08/30/[address] [address] Porsha Garrido MD MEDICATION REFILL 08/30/[address] [address] Porsha Garrido MD Refill Request 08/27/2024 7:10 PM CDT Video Visit [address] [phone] Shakira High, DIVIDING MACHINE OPERATOR HELPER-GRAIN MERCHANDISER Referral of patient without examination or treatment 08/08/[address] [address] Porsha Garrido MD Med Change Request 08/03/[address] [address] Porsha Garrido MD Refill Request 08/02/[address] [address] Porsha Garrido MD MEDICATION REFILL 07/28/2024 11:08 AM CDT - 07/28/2024 12:59 PM CDT Emergency ER at [address] [address] Brian Baumann MD Near syncope Discharge Disposition: Home or Self Care 07/28/2024 Travel 07/11/2024 8:45 AM CUPOLA MELTER HELPER Video Visit [address] [address] Porsha Garrido MD JOHN (generalized anxiety disorder) 07/05/[address] [address] Porsha Garrido MD Refill Request 06/30/[address] [address] Porsha Garrido MD Med Change Request 06/15/[address] [address] Porsha Garrido MD Med Change Request 06/08/2024 8:15 AM CUPOLA MELTER HELPER Video Visit [address] [address] Porsha Garrido MD JOHN (generalized anxiety disorder) ; 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 [...] ML (IIV3) 02/25/2024 MENINGOCOCAL MENINGITIS 10/13/2005 MENINGOCOCCAL ACWY MENVEO 10/13/2005 MMR 12/01/1992,12/31/1988 MODERNA SARS-COV-2 COVID-19 VACCINE [...] Answer Date Recorded Patient Health Questionnaire-2 Score 1 08/27/2024 Hunger Vital Sign Answer Date Recorded Within the past 12 months, y ou worried that your food would run out before you got the money to buy more. Never true 09/11/19 Within the past 12 months, t he food you bought just didn't last and you didn't have money to get more. 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 Not on file Not on f ile Last Filed Vital Signs Vital Sign Reading Time Taken Comments Blood Pressure 121/72 07/28/2024 12:00 PM CDT Pulse 71 07/28/2024 12:01 PM CDT Temperature 36.6 C (97.9 F) 07/28/2024 10:13 AM CDT Respiratory Rate 13 07/28/2024 12:01 PM CDT Oxygen Saturation 100% 07/28/2024 11:46 AM CDT Inhaled Oxygen Concentration - - Weight 88.1 kg (194 lb 3.2 oz) 06/05/2024 8:07 A M CUPOLA MELTER HELPER Height 172.7 cm (5' 8 ) 07/28/2024 10:14 AM CDT Body Mass Index 29.53 06/05/2024 8:07 AM CUPOLA MELTER HELPER Plan of Treatment Upcoming Encounters Date Type Department Care Team (Late st Contact Info) Description 10/05/2024 10:00 AM CDT Office Visit [facility] Breast Care - Surgery [address] [place] [phone] Satnam Nicole MD [address] [place] [phone] 10/12/2024 8:15 AM CDT Video Visit [facility] - Family Medicine [address] [address] Porsha Garrido MD [address] [facility] 200 [place] [address] Health Maintenance Due Date Last Done Comments COVID-19 VACCINE ( season) 2024 04/27/2022, 10/08/2021, 04/03/2021, Additional [...] APTIMA REFLEX 16,18/45 Routine 06/05/2024 8:24 AM CUPOLA MELTER HELPER Screening for cervical cancer HEPATITIS C AB W RFLX VERIFICATION Routine [...] PM CDT Ordered by an unspecified provider. us Scanned Document CARDIAC SERVICES ORDERABLES Fin al Result * (ABNORMAL) CBC W AUTO DIFFERENTIAL (07/28/2024 11:50 AM CDT) WBC 9.6 4.0 - 10.7 x10E9/L 07/28/2024 12:02 PM CDT [facility] RBC Count 4.28 3.90 - 5.20 x10E12/L 07/28/2024 12:02 PM CDT [facility] Hemoglobin 12.8 11.9 - 15.8 g/dL 07/28/2024 12:02 PM CDT [facility] Hematocrit 36.3 34.8 - 46.1 % 07/28/2024 12:02 PM CDT [facility] MCV 84.8 80.0 - 98.0 fL 07/28/2024 12:02 PM [facility] MCH 29.9 26.7 - 33.6 pg 07/28/2024 12:02 PM [facility] MCHC 35.3 31.7 - 36.3 g/dL 07/28/2024 12:02 PM [facility] RDW-CV 12.3 11.3 - 14.8 % 07/28/2024 12:02 PM [facility] Platelet Count 330 150 - 420 x10E9/L 07/28/2024 12:02 PM [facility] MPV 8.9 7.8 - 11.4 fL 07/28/2024 12:02 PM [facility] Neutrophil % 63.2 41.0 - 74.0 % 07/28/2024 12:02 PM [facility] Lymphocyte % 18.8 17.0 - 47.0 % 07/28/2024 12:02 PM [facility] Monocyte % 4.6 3.0 - 11.0 % 07/28/2024 12:02 PM [facility] Eosinophil % 12.3(H) 0.0 - 7.0 % 07/28/2024 12:02 PM [facility] Basophil % 0.8 0.0 - 1.6 % 07/28/2024 12:02 PM [facility] Immature Granulocytes % 0.3 0.0 - 1.0 % 07/28/2024 12:02 PM [facility] Neutrophil Absolute 6.03 1.60 - 7.50 x10E9/L 07/28/2024 12:02 PM [facility] Lymphocyte Absolute 1.80 1.00 - 4.40 x10E9/L 07/28/2024 12:02 PM [facility] Monocyte Absolute 0.44 0.15 - 1.00 x10E9/L 07/28/2024 12:02 PM [facility] Eosinophil Absolute 1.17(H) 0.00 - 0.60 x10E9/L 07/28/2024 12:02 PM [facility] Basophil Absolute 0.08 0.00 - 0.13 x10E9/L 07/28/2024 12:02 PM [facility] Blood BLOOD SPECIMEN / Unknown Venipuncture / Unknown 07/28/2024 11:50 AM CDT 07/28/2024 11:57 AM CDT us Brian Baumann MD LAB - HEMATOLOGY ORDERABLES Final Result [facility] [address] [place] [id number] * COMPREHENSIVE METABOLIC PANEL (07/28/2024 11:50 AM CDT) [facility] Glucose 89 70 - 99 mg/dL 07/28/2024 12:21 PM [facility] Sodium 140 136 - 145 mmol/L 07/28/2024 12:21 PM [facility] Potassium 3.7 3.5 - 5.1 mmol/L 07/28/2024 12:21 PM [facility] Chloride 106 98 - 107 mmol/L 07/28/2024 12:21 PM [facility] CO2 25 22 - 29 mmol/L 07/28/2024 12:21 PM [facility] Calcium 9.2 8.4 - 10.4 mg/dL 07/28/2024 12:21 PM [facility] Anion Gap 9 6 - 16 mmol/L 07/28/2024 12:21 PM [facility] BUN 10 5.3 - 18.7 mg/dL 07/28/2024 12:21 PM [facility] Creatinine 0.69 0.57 - 1.11 mg/dL 07/28/2024 12:21 PM [facility] Alkaline Phosphatase 68 40 - 150 U/L 07/28/2024 12:21 PM [facility] ALT 15 0 - 55 U/L 07/28/2024 12:21 PM [facility] AST 14 5 - 34 U/L 07/28/2024 12:21 PM [facility] Protein Total 7.7 6.4 - 8.3 gm/dL 07/28/2024 12:21 PM [facility] Albumin 4.2 3.4 - 5.0 gm/dL 07/28/2024 12:21 PM [facility] Bilirubin Total 0.4 0.2 - 1.2 mg/dL 07/28/2024 12:21 PM CDT [facility] eGFR by CKD-EPI >90 >=90 mL/min/1.7 3 m2 07/28/2024 12:21 PM CDT [facility] Blood BLOOD SPECIMEN / Unknown Venipuncture / Unknown 07/28/2024 11:50 AM CDT 07/28/2024 11:57 AM CDT Brian Baumann MD LAB - CHEMISTRY ORDERABLES F inal Result Performing Organization Address [facility] Co de Phone Number [facility] [address] [place] [address] * HCG BETA BLOOD QUANTITATIVE (07/28/2024 11:50 AM CDT) [facility] hCG Quantitative <2.42 mIU/mL 07/29/19 12:27 PM CDT [facility] Blood BLOOD SPECIMEN / Unknown Venipuncture / Unknown 07/28/2024 11:50 AM CDT 07/28/2024 11:57 AM CDT Narrative [facility] - 07/28/2024 12:27 PM [...] unlikely. Brian Baumann MD LAB - CHEMISTRY ORDERABLES F inal Result Performing Organization Address [facility]/ZIP Co de Phone Number [facility] [address] [place] [address] * MAGNESIUM BLOOD (07/28/2024 11:50 AM CDT) Magnesium 1.7 1.6 - 2.6 mg/dL 07/28/2024 12:21 PM CDT [facility] Blood BLOOD SPECIMEN / Unknown Venipuncture / Unknown 07/28/2024 11:50 AM CDT 07/28/2024 11:57 AM CDT Brian Baumann MD LAB - CHEMISTRY ORDERABLES F inal Result [facility] [address] [place] [address] * EKG 12-LEAD (07/28/2024 11:15 AM CDT) Ventricular Rate 59 BPM [facility] Atrial Rate 59 BPM [facility] P-R Interval 140 ms [facility] QRS Duration ms 78 ms [facility] Q-T Interval ms 440 ms [facility] QTC Calculation (Bezet) 435 ms [facility] Calculated R [place] -179 degrees [facility] Calculated T [place] -171 degrees [facility] Interpretation EKG Suspect arm lead reversal, interpretation assumes no reversal Sinus bradycardia Right superior axis deviation T wave abnormality, consider inferior ischemia Abnormal ECG When compared with ECG of 06-JUL-2023 11:16, Questionable change in QRS axis T wave inversion now evident in Inferior leads Confirmed by FLAKITA TAPIA, [facility] ([id number]) on 07/30/2024 2:05:41 PM [facility] 07/28/2024 11:1 5 AM CDT 07/30/2024 2:05 PM CDT Brian Baumann MD ECG ORDERABLES Edited Resul t - Final [facility] * PAP IG LB +HPV APTIMA REFLEX 16,18/45 (06/05/2024 8:24 AM CUPOLA MELTER HELPER) Diagnosis Comment [facility] INSURANCE BILL Comment:NEGATIVE FOR INTRAEP ITHELIAL LESION OR MALIGNANCY. Specimen Adequacy Comment [facility] INSURANCE BILL Comment: Satisfactory for evaluation. Endocervical and/or squamous metaplastic cells (endocervical component) are present. Clinician Provided ICD10 Comment [facility] INSURANCE BILL Comment:Z12.4 Performed by Comment [facility] INSURANCE BILL Comment:Tejas Campbell chnologist (ASCP) Comment . [facility] INSURANCE BILL Note Comment [facility] INSURANCE BILL Comment: The Pap smear is [...] UTERINE CERVIX / Unknown 06/05/2024 8:24 AM CUPOLA MELTER HELPER 06/05/2024 Comment:Cervix Release to ks jayce Franco [facility] INSURANCE BILL - 06/07/2024 1:08 PM CUPOLA MELTER HELPER Performed at: 01 - [address] [id number] Curing Bin Operator: Sejal Ordoñez MD, Phone: [phone] Performed at: 02 - [address] [id number] Curing Bin Operator: Sejal Ordoñez MD, Phone: [phone] Specimen Comment: [id number] Specimen Comment: No. of containers..01 ThinPrep Vial Karen Ngo DIVIDING MACHINE OPERATOR HELPER-GRAIN MERCHANDISER LAB - PATHOLOGY/CYTOLOGY ORDERABLES Final Result [facility] INSURANCE BILL [address] [place] [address] * HEPATITIS C AB W RFLX VERIFICATION (09/25/2018 10:43 AM CDT) Hepatitis C Antibody <0.1 0.0 - 0.9 s/co ratio [facility] ACCOUNT BILL Comment:FASTING Blood BLOOD SPECIMEN / Unknown 09/25/2018 10:43 AM CDT 09/25/2018 Narrative Resulting Agency Comment [facility]: [facility] [address] [place] [id number] Lianne Welch MD LAB - CHEMISTRY ORDERABLES Iesha l Result [facility] ACCOUNT BILL [address] [place] [address] * HIV-1 HIV-2 ANTIBODY + HIV P24 AG PANEL (09/25/2018 10:43 AM CDT) HIV Screen 4th Generation w Reflex Non Reactive Non Reactive [facility] ACCOUNT BILL Comment:FASTING Blood BLOOD SPECIMEN / Unknown 09/25/2018 10:43 AM CDT 09/25/2018 Narrative Resulting Agency Comment Lab Testing performed at: [facility] [id number] [place] Lianne Welch MD LAB - CHEMISTRY ORDERABLES Iesha l Result [facility] ACCOUNT BILL [address] [place] [address] from Last 3 Months or Most Recently Relevant to Health Maintenance Insurance [place] [address] [place] [address] [facility] Advance Directives * Full Code (Latest Code Status on File) Date Activated Date Inactivated Comments 01/05/2015 3:32 AM 01/07/2015 2:46 PM Care Teams Credit Investigator Relationship Specialty Start Date End Date Porsha Garrido MD [facility] [facility] [address] [place] [address] PCP - General 01/31/11 Gary Burgess MD [address] [facility] [address] [place] [address] Gastroenterology 08/22/13 Michelle Nogueira, DIVIDING MACHINE OPERATOR HELPER-GRAIN MERCHANDISER [address] [place] [address] [address] [place] [address] Nurse Practitioner Nurse Practitioner Adult Health 09/03/22 Marjorie Weston DO [address] [place] [address] [address] [place] [phone] Rheumatology 05/31/24
--- OUTSIDE RECORDS SUMMARY | 2024-09-06 11:00 | XMS_ITS | Encounter Summary ---
Author Organization [facility] Address [address] [facility] [place] [address] Care Team Providers Care Repairer Art Objects Name Role Phone Porsha Garrido MD Primary Care Provider [phone] Carina Rey MD Unavailable Unavailable Gary Burgess MD Unavailable [phone] Evelyn García RN Unavailable [phone] Porsha Garrido MD Unavailable [phone] Joselito Gold MD Unavailable [phone] Porsha Garrido MD Unavailable [phone] Joselito Gold MD Unavailable [phone] Jolie Marrero PA-C Unavailable [phone] Porsha Garrido MD Unavailable [phone] Porsha Garrido MD Unavailable [phone] Joselito Casarez MD Unavailable Unavailable Michelle Nogueira CONFECTIONERY COOKER-AIR MOTOR REPAIRER Unavailable [phone] Porsha Garrido MD Unavailable [phone] Paloma Romo Unavailable Marjorie Weston DO Unavailable Porsha Garrido MD Unavailable Encounter Details Date Type Department Care Team (Late Contact Info) Description 10/28/2014 Therapy Visit [facility] PHYSICAL THERAPY [address] [place] [address] AlvaradohansaMeir DO [address] [place] [address] Social History Tobacco Use Types Packs/Day Years Used Date Smoking Tobacco: Never Smokeless Tobacco: Never Alcohol Use Standard Drinks/Week Comments Yes 0 (1 standard drink = 0.6 oz pur e alcohol) occasionally Comments No Sex and Gender Information Value Date Recorded Sex Assigned at Not on file Legal Sex Female 12:18 PM PAYROLL CLERK Gender Identity Female 01/16/2019 9:49 AM CDT Sexual Orientation Not on file 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 on file Not on f ile documented as of this encounter Plan of Treatment Upcoming Encounters Date Type Department Care Team (Late st Contact Info) Description 10/05/2024 10:00 AM CDT Office Visit [facility] Breast Care - Surgery [address] [place] [address] Satnam Nicole MD [address] [address] 10/12/2024 8:15 AM CDT Video Visit [facility] Medical Group - Family Medicine [address] [place] [address] Porsha Garrido MD [address] [place] [address] documented as of this encounter Visit Diagnoses Not on filedocumented in this encounter Additional Health Concerns Infection Onset Date Last Indicated Resolved Time COVID-19 Under Investigation 04/01/2020 04/01/2020 04/02/2020 2:40 PM PAYROLL CLERK COVID-19 Confirmed 04/01/2020 04/01/2020 0 4:34 AM PAYROLL CLERK documented as of this encounter Care Teams Repairer Art Objects Relationship Specialty Start Date End Date Porsha Garrido MD [address] [place] [address] PCP - General 01/31/11 Porsha Garrido MD [address] [place] [address] [place] [address] PCP - Attributed-[employer] Commercial 09/13/18 11/01/19 Joselito Gold MD [address] [place] [address] PCP - Attributed-[employer] 07/15/19 08/14/19 Porsha Garrido MD [address] [place] [address] PCP - Attributed-[employer] 08/15/19 07/13/20 Jolie Marrero PA-C [address] [place] [address] [place] [address] PCP - Attributed-[employer] 07/14/20 08/13/20 Porsha Garrido MD [address] [place] [address] PCP - Attributed-[employer] 08/14/20 12/29/21 Porsha Garrido MD [address] [place] [address] PCP - Attributed-[employer] Commercial 05/16/22 08/31/22 Porsha Garrido MD [address] [place] [address] [place] [address] PCP - Attributed-[employer] Commercial 11/13/22 07/31/24 Porsha Garrido MD [address] [place] [address] PCP - Attributed-[employer] 10/29/16 09/14/17 Carina Rey MD [address] [place] [address] [place] [address] Obstetrics and Gynecology 10/27/11 07/14/20 Gary Burgess MD [address] [place] [address] [address] [place] [address] Gastroenterology 08/22/13 Evelyn García, RN Label Rewinder 01/05/15 06/07/24 Joselito Gold MD [address] [place] [address] Obstetrics and Gynecology 07/15/20 5 Joselito Casarez MD [address] [place] [address] [address] [place] [address] Hematology and Oncology 09/03/22 05/26/23 Michelle Nogueira, CONFECTIONERY COOKER-AIR MOTOR REPAIRER [address] [place] [address] [address] [place] [address] Nurse Practitioner Nurse Practitioner Adult Health 09/03/22 Paloma Romo Care Coordination Specialist Care Management 12/13/23 12/13/23 Marjorie [place] DO [address] [phone] Rheumatology 05/31/24 documented as of this encounter
--- OUTSIDE RECORDS SUMMARY | 2024-09-06 11:00 | XMS_ITS | Encounter Summary ---
Author Organization [facility] Address [address] [place] [address] Care Team Providers Care Trip Rider Name Role Phone Porsha Garrido MD Primary Care Provider [phone] Encounter Details Date Type Department Care Team (Late st Contact Info) Description 08/15/2000 Outpatient Historical [facility] [place] [address] [facility] [place] [address] Deshawn Kitchen MD NO ADDRESS ON FILE Social History Tobacco Use Types Packs/Day Years Used Date Smoking Tobacco: Never Assessed Comments Unknown Sex and Gender Information Value Date Recorded Sex Assigned at Not on file Legal Sex Female 3:08 AM TIME STUDY ENGINEER Gender Identity Not on file Sexual Orientation Not on file documented as of this encounter Plan of Treatment Upcoming Encounters Date Type Department Care Team (Late st Contact Info) Description 06/25/2025 3:10 PM TIME STUDY ENGINEER Office Visit [facility] Gastroenterology [address] [place] [address] Gary Burgess MD [address] [id number] [place] [address] 08/08/2025 10:30 AM CDT Office Visit [facility] Neurology [address] [place] [address] Rama De La Paz MD [address] [facility] [address] [place] [address] documented as of this encounter Visit Diagnoses Not on filedocumented in this encounter Additional Health Concerns Infection Onset Date Last Indicated Resolved Time R/O C. diff 05/21/2020 05/21/2020 05/21/2020 1:01 PM TIME STUDY ENGINEER R/O C. diff 10/31/2021 10/30/2021 10/31/2021 3:51 PM CDT R/O C. diff 09/01/2022 08/31/2022 09/01/2022 5:17 PM CDT documented as of this encounter Care Teams Trip Rider Relationship Specialty Start Date End Date Porsha Garrido MD [address] [place] [address] PCP - General 03/04/09 documented as of this encounter
--- OUTSIDE RECORDS SUMMARY | 2024-09-06 11:01 | XMS_ITS | Encounter Summary ---
Author Organization [facility] Address [address] [place] [address] Care Team Providers Care Retail Department Reset Name Role Phone Porsha Garrido MD Primary Care Provider Encounter Details Date Type Department Care Team (Late st Contact Info) Description 12/26/1998 Outpatient Historical [facility] Pediatrics [place] [address] [facility] [place] [phone] Brayan Solitario MD [address] [place] [address] Social History Tobacco Use Types Packs/Day Years Used Date Smoking Tobacco: Never Assessed Comments Unknown Sex and Gender Information Value Date Recorded Sex Assigned at Not on file Legal Sex Female 3:08 AM OFFICE SPEC Gender Identity Not on file Sexual Orientation Not on file documented as of this encounter Plan of Treatment Upcoming Encounters Date Type Department Care Team (Late st Contact Info) Description 06/25/2025 3:10 PM OFFICE SPEC Office Visit [facility] Gastroenterology [address] [place] [address] Gary Burgess MD [address] [id number] [place] [address] 08/08/2025 10:30 AM CDT Office Visit [facility] Neurology [address] [facility] [address] [place] [address] Rama De La Paz MD [address] [facility] [address] [place] [address] documented as of this encounter Visit Diagnoses Not on filedocumented in this encounter Additional Health Concerns Infection Onset Date Last Indicated Resolved Time R/O C. diff 05/21/2020 05/21/2020 05/21/2020 1:01 PM OFFICE SPEC R/O C. diff 10/31/2021 10/30/2021 10/31/2021 3:51 PM CDT R/O C. diff 09/01/2022 08/31/2022 09/01/2022 5:17 PM CDT documented as of this encounter Care Teams Retail Department Reset Relationship Specialty Start Date End Date Porsha Garrido MD [address] [place] [address] PCP - General 03/04/09 documented as of this encounter
--- OUTSIDE RECORDS SUMMARY | 2024-09-06 11:01 | XMS_ITS | Encounter Summary ---
Author Organization [facility] Address [address] [place] [address] Care Team Providers Care Power Originator Name Role Phone Porsha Garrido MD Primary Care Provider Encounter Details Date Type Department Care Team (Late st Contact Info) Description 08/18/1998 Outpatient Historical [facility] Pediatrics [place] [address] [facility] [place] [address] Brayan Solitario MD [address] [place] [address] Social History Tobacco Use Types Packs/Day Years Used Date Smoking Tobacco: Never Assessed Comments Unknown Sex and Gender Information Value Date Recorded Sex Assigned at Not on file Legal Sex Female 3:08 AM CORE DRILLER Gender Identity Not on file Sexual Orientation Not on file documented as of this encounter Plan of Treatment Upcoming Encounters Date Type Department Care Team (Late st Contact Info) Description 06/25/2025 3:10 PM CORE DRILLER Office Visit [facility] Gastroenterology [address] [place] [address] Gary Burgess MD [address] [id number] [place] [address] 08/08/2025 10:30 AM CDT Office Visit [facility] Neurology [address] [facility] [address] [place] [address] Rama De La Paz MD [address] [facility] [address] [place] [address] documented as of this encounter Visit Diagnoses Not on filedocumented in this encounter Additional Health Concerns Infection Onset Date Last Indicated Resolved Time R/O C. diff 05/21/2020 05/21/2020 05/21/2020 1:01 PM CORE DRILLER R/O C. diff 10/31/2021 10/30/2021 10/31/2021 3:51 PM CDT R/O C. diff 09/01/2022 08/31/2022 09/01/2022 5:17 PM CDT documented as of this encounter Care Teams Power Originator Relationship Specialty Start Date End Date Porsha Garrido MD [address] [place] [address] PCP - General 03/04/09 documented as of this encounter
--- OUTSIDE RECORDS SUMMARY | 2024-09-06 11:01 | XMS_ITS | Encounter Summary ---
Author Organization [facility] Address [address] [place] [address] Care Team Providers Care Rasper Machine Operator Name Role Phone Porsha Garrido MD Primary Care Provider [phone] Encounter Details Date Type Department Care Team (Late st Contact Info) Description 05/10/2001 Outpatient Historical [facility] Pediatric[facility] [place] [address] [facility] [place] [address] Deshawn Kitchen MD NO ADDRESS ON FILE Social History Tobacco Use Types Packs/Day Years Used Date Smoking Tobacco: Never Assessed Comments Unknown Sex and Gender Information Value Date Recorded Sex Assigned at Not on file Legal Sex Female 3:08 AM DRIVER MEDIC Gender Identity Not on file Sexual Orientation Not on file documented as of this encounter Plan of Treatment Upcoming Encounters Date Type Department Care Team (Late st Contact Info) Description 06/25/2025 3:10 PM DRIVER MEDIC Office Visit [facility] Gastroenterology [address] [place] [address] Gary Burgess MD [address] [id number] [place] [address] 08/08/2025 10:30 AM CDT Office Visit [facility] Neurology [address] [place] [address] Rama De La Paz MD [address] [facility] [address] [place] [address] documented as of this encounter Visit Diagnoses Not on filedocumented in this encounter Additional Health Concerns Infection Onset Date Last Indicated Resolved Time R/O C. diff 05/21/2020 05/21/2020 05/21/2020 1:01 PM DRIVER MEDIC R/O C. diff 10/31/2021 10/30/2021 10/31/2021 3:51 PM CDT R/O C. diff 09/01/2022 08/31/2022 09/01/2022 5:17 PM CDT documented as of this encounter Care Teams Rasper Machine Operator Relationship Specialty Start Date End Date Porsha Garrido MD [address] [place] [address] PCP - General 03/04/09 documented as of this encounter
--- OUTSIDE RECORDS SUMMARY | 2024-09-06 11:01 | XMS_ITS | Encounter Summary ---
Author Organization [facility] Address [address] [place] [address] Care Team Providers Care Arc Welding Machine Operator Name Role Phone Porsha Garrido MD Primary Care Provider Encounter Details Date Type Department Care Team (Late st Contact Info) Description 12/09/1999 Outpatient Historical [facility] Pediatrics [place] [address] [facility] [place] [address] Ally Keller MD [address] [facility] [address] [place] [address] Social History Tobacco Use Types Packs/Day Years Used Date Smoking Tobacco: Never Assessed Comments Unknown Sex and Gender Information Value Date Recorded Sex Assigned at Not on file Legal Sex Female 3:08 AM SYSTEMS SECURITY ANALYST Gender Identity Not on file Sexual Orientation Not on file documented as of this encounter Plan of Treatment Upcoming Encounters Date Type Department Care Team (Late st Contact Info) Description 06/25/2025 3:10 PM SYSTEMS SECURITY ANALYST Office Visit [facility] Gastroenterology [address] [place] [address] Gary Burgess MD [address] [id number] [place] [address] 08/08/2025 10:30 AM CDT Office Visit [facility] Neurology [address] [facility] [address] [place] [address] Rama De La Paz MD [address] [facility] [address] [place] [address] documented as of this encounter Visit Diagnoses Not on filedocumented in this encounter Additional Health Concerns Infection Onset Date Last Indicated Resolved Time R/O C. diff 05/21/2020 05/21/2020 05/21/2020 1:01 PM SYSTEMS SECURITY ANALYST R/O C. diff 10/31/2021 10/30/2021 10/31/2021 3:51 PM CDT R/O C. diff 09/01/2022 08/31/2022 09/01/2022 5:17 PM CDT documented as of this encounter Care Teams Arc Welding Machine Operator Relationship Specialty Start Date End Date Porsha Garrido MD [address] [place] [address] PCP - General 03/04/09 documented as of this encounter
--- OUTSIDE RECORDS SUMMARY | 2024-09-06 11:01 | XMS_ITS | Encounter Summary ---
Author Organization [facility] Address [address] [place] [address] Care Team Providers Care Partnership Manager Name Role Phone Porsha Garrido MD Primary Care Provider Encounter Details Date Type Department Care Team (Late st Contact Info) Description 04/16/1998 Outpatient Historical [facility] Pediatrics [place] [address] [facility] [place] [address] Deshawn Kitchen MD NO ADDRESS ON FILE Social History Tobacco Use Types Packs/Day Years Used Date Smoking Tobacco: Never Assessed Comments Unknown Sex and Gender Information Value Date Recorded Sex Assigned at Not on file Legal Sex Female 3:08 AM POULTRY HATCHERY LABORER Gender Identity Not on file Sexual Orientation Not on file documented as of this encounter Plan of Treatment Upcoming Encounters Date Type Department Care Team (Late st Contact Info) Description 06/25/2025 3:10 PM POULTRY HATCHERY LABORER Office Visit [facility] Gastroenterology [address] [place] [address] Gary Burgess MD [address] [id number] [place] [address] 08/08/2025 10:30 AM CDT Office Visit [facility] Neurology [address] [place] [address] Rama De La Paz MD [address] [facility] [address] [place] [address] documented as of this encounter Visit Diagnoses Not on filedocumented in this encounter Additional Health Concerns Infection Onset Date Last Indicated Resolved Time R/O C. diff 05/21/2020 05/21/2020 05/21/2020 1:01 PM POULTRY HATCHERY LABORER R/O C. diff 10/31/2021 10/30/2021 10/31/2021 3:51 PM CDT R/O C. diff 09/01/2022 08/31/2022 09/01/2022 5:17 PM CDT documented as of this encounter Care Teams Partnership Manager Relationship Specialty Start Date End Date Porsha Garrido MD [address] [place] [address] PCP - General 03/04/09 documented as of this encounter
--- OUTSIDE RECORDS SUMMARY | 2024-09-06 11:01 | XMS_ITS | Encounter Summary ---
Author Organization [facility] Address [address] [place] [address] Care Team Providers Care Commercial Carpet Installer Name Role Phone Porsha Garrido MD Primary Care Provider [phone] Encounter Details Date Type Department Care Team (Late st Contact Info) Description 02/16/1999 Outpatient Historical [facility] Pediatrics [place] [address] [facility] [place] [address] Deshawn Kitchen MD NO ADDRESS ON FILE Social History Tobacco Use Types Packs/Day Years Used Date Smoking Tobacco: Never Assessed Comments Unknown Sex and Gender Information Value Date Recorded Sex Assigned at Not on file Legal Sex Female 3:08 AM DIRECTOR OF PHYSIOTHERAPY SERVICES Gender Identity Not on file Sexual Orientation Not on file documented as of this encounter Plan of Treatment Upcoming Encounters Date Type Department Care Team (Late st Contact Info) Description 06/25/2025 3:10 PM DIRECTOR OF PHYSIOTHERAPY SERVICES Office Visit [facility] Gastroenterology [place] [address] [place] [address] Gary Burgess MD [address] [id number] [place] [address] 08/08/2025 10:30 AM CDT Office Visit [facility] Neurology [address] [place] [address] Rama De La Paz MD [address] [facility] [address] [place] [address] documented as of this encounter Visit Diagnoses Not on filedocumented in this encounter Additional Health Concerns Infection Onset Date Last Indicated Resolved Time R/O C. diff 05/21/2020 05/21/2020 05/21/2020 1:01 PM DIRECTOR OF PHYSIOTHERAPY SERVICES R/O C. diff 10/31/2021 10/30/2021 10/31/2021 3:51 PM CDT R/O C. diff 09/01/2022 08/31/2022 09/01/2022 5:17 PM CDT documented as of this encounter Care Teams Commercial Carpet Installer Relationship Specialty Start Date End Date Porsha Garrido MD [address] [place] [address] PCP - General 03/04/09 documented as of this encounter
--- OUTSIDE RECORDS SUMMARY | 2024-09-06 11:01 | XMS_ITS | Encounter Summary ---
Author Organization [facility] Address [address] [place] [address] Care Team Providers Care Utility Tech Name Role Phone Porsha Garrido MD Primary Care Provider Encounter Details Date Type Department Care Team (Late st Contact Info) Description 10/13/2005 Outpatient Historical [facility] Pediatrics [place] [address] [facility] [address] Deshawn Kitchen MD NO ADDRESS ON FILE Social History Tobacco Use Types Packs/Day Years Used Date Smoking Tobacco: Never Assessed Comments Unknown Sex and Gender Information Value Date Recorded Sex Assigned at Not on file Legal Sex Female 3:08 AM PERSONAL INSURANCE ADVISOR Gender Identity Not on file Sexual Orientation Not on file documented as of this encounter Plan of Treatment Upcoming Encounters Date Type Department Care Team (Late st Contact Info) Description 06/25/2025 3:10 PM PERSONAL INSURANCE ADVISOR Office Visit [facility] Gastroenterology [place] [address] [place] [address] Gary Burgess MD [address] [id number] [place] [address] 08/08/2025 10:30 AM CDT Office Visit [facility] Neurology [address] [address] [place] [address] Rama De La Paz MD [address] [facility] [address] [place] [address] documented as of this encounter Visit Diagnoses Not on filedocumented in this encounter Additional Health Concerns Infection Onset Date Last Indicated Resolved Time R/O C. diff 05/21/2020 05/21/2020 05/21/2020 1:01 PM PERSONAL INSURANCE ADVISOR R/O C. diff 10/31/2021 10/30/2021 10/31/2021 3:51 PM CDT R/O C. diff 09/01/2022 08/31/2022 09/01/2022 5:17 PM CDT documented as of this encounter Care Teams Utility Tech Relationship Specialty Start Date End Date Porsha Garrido MD [address] [place] [address] PCP - General 03/04/09 documented as of this encounter
--- OUTSIDE RECORDS SUMMARY | 2024-09-06 11:01 | XMS_ITS | Encounter Summary ---
Author Organization [facility] Address [address] [place] [address] Care Team Providers Care Weather Observer Name Role Phone Porsha Garrido MD Primary Care Provider Encounter Details Date Type Department Care Team (Late st Contact Info) Description 10/13/2005 Outpatient Historical [facility] Pediatrics [place] [address] [place] [address] Deshawn Kitchen MD NO ADDRESS ON FILE Social History Tobacco Use Types Packs/Day Years Used Date Smoking Tobacco: Never Assessed Comments Unknown Sex and Gender Information Value Date Recorded Sex Assigned at Not on file Legal Sex Female 3:08 AM BUTTER LIQUEFIER Gender Identity Not on file Sexual Orientation Not on file documented as of this encounter Plan of Treatment Upcoming Encounters Date Type Department Care Team (Late st Contact Info) Description 06/25/2025 3:10 PM BUTTER LIQUEFIER Office Visit [facility] Gastroenterology [place] [address] [place] [address] Gary Burgess MD [address] [id number] [place] [address] 08/08/2025 10:30 AM CDT Office Visit [facility] Neurology [address] [place] [address] Rama De La Paz MD [address] [facility] [address] [place] [address] documented as of this encounter Visit Diagnoses Not on filedocumented in this encounter Additional Health Concerns Infection Onset Date Last Indicated Resolved Time R/O C. diff 05/21/2020 05/21/2020 05/21/2020 1:01 PM BUTTER LIQUEFIER R/O C. diff 10/31/2021 10/30/2021 10/31/2021 3:51 PM CDT R/O C. diff 09/01/2022 08/31/2022 09/01/2022 5:17 PM CDT documented as of this encounter Care Teams Weather Observer Relationship Specialty Start Date End Date Porsha Garrido MD [address] [place] [address] PCP - General 03/04/09 documented as of this encounter
--- OUTSIDE RECORDS SUMMARY | 2024-09-06 11:01 | XMS_ITS | Encounter Summary ---
Author Organization [facility] Address [address] [place] [address] Care Team Providers Care Senior Environmental Engineer Name Role Phone Porsha Garrido MD Primary Care Provider Encounter Details Date Type Department Care Team (Late st Contact Info) Description 12/02/1997 Outpatient Historical [facility] Pediatrics [place] [address] [facility] [place] [address] [place] [address] Deshawn Kitchen MD NO ADDRESS ON FILE Social History Tobacco Use Types Packs/Day Years Used Date Smoking Tobacco: Never Assessed Comments Unknown Sex and Gender Information Value Date Recorded Sex Assigned at Not on file Legal Sex Female 3:08 AM ASSISTANT ACCOUNTING MANAGER Gender Identity Not on file Sexual Orientation Not on file documented as of this encounter Plan of Treatment Upcoming Encounters Date Type Department Care Team (Late st Contact Info) Description 06/25/2025 3:10 PM ASSISTANT ACCOUNTING MANAGER Office Visit [facility] Gastroenterology [place] [address] [place] [address] Gary Burgess MD [address] [id number] [place] [address] 08/08/2025 10:30 AM CDT Office Visit [facility] Neurology [address] [place] [address] Rama De La Paz MD [address] [facility] [address] [place] [address] documented as of this encounter Visit Diagnoses Not on filedocumented in this encounter Additional Health Concerns Infection Onset Date Last Indicated Resolved Time R/O C. diff 05/21/2020 05/21/2020 05/21/2020 1:01 PM ASSISTANT ACCOUNTING MANAGER R/O C. diff 10/31/2021 10/30/2021 10/31/2021 3:51 PM CDT R/O C. diff 09/01/2022 08/31/2022 09/01/2022 5:17 PM CDT documented as of this encounter Care Teams Senior Environmental Engineer Relationship Specialty Start Date End Date Porsha Garrido MD [address] [place] [address] PCP - General 03/04/09 documented as of this encounter
--- OUTSIDE RECORDS SUMMARY | 2024-09-06 11:01 | XMS_ITS | Encounter Summary ---
Author Organization [facility] Address [address] [place] [address] Care Team Providers Care Benzene Worker Name Role Phone Porsha Garrido MD Primary Care Provider [phone] Encounter Details Date Type Department Care Team (Late st Contact Info) Description 01/22/[address] [facility] Pediatrics [place] [address] [facility] [place] [address] [place] [address] Deshawn Kitchen MD NO ADDRESS ON FILE Social History Tobacco Use Types Packs/Day Years Used Date Smoking Tobacco: Never Assessed Comments Unknown Sex and Gender Information Value Date Recorded Sex Assigned at Not on file Legal Sex Female 3:08 AM PETROLEUM PRODUCTS SALES REPRESENTATIVE Gender Identity Not on file Sexual Orientation Not on file documented as of this encounter Plan of Treatment Upcoming Encounters Date Type Department Care Team (Late st Contact Info) Description 06/25/2025 3:10 PM PETROLEUM PRODUCTS SALES REPRESENTATIVE Office Visit [facility] Gastroenterology [place] [address] [place] [address] Gary Burgess MD [address] [id number] [place] [address] 08/08/2025 10:30 AM CDT Office Visit [facility] Neurology [address] [place] [address] Rama De La Paz MD [address] [facility] [address] [place] [address] documented as of this encounter Visit Diagnoses Not on filedocumented in this encounter Additional Health Concerns Infection Onset Date Last Indicated Resolved Time R/O C. diff 05/21/2020 05/21/2020 05/21/2020 1:01 PM [employer] SALES REPRESENTATIVE R/O C. diff 10/31/2021 10/30/2021 10/31/2021 3:51 PM CDT R/O C. diff 09/01/2022 08/31/2022 09/01/2022 5:17 PM CDT documented as of this encounter Care Teams Benzene Worker Relationship Specialty Start Date End Date Porsha Garrido MD [address] [place] [address] PCP - General 03/04/09 documented as of this encounter
--- OUTSIDE RECORDS SUMMARY | 2024-09-06 11:01 | XMS_ITS | Encounter Summary ---
Author Organization [facility] Address [address] [facility] [place] [address] Care Team Providers Care Table Setter Name Role Phone Porsha Garrido MD Primary Care Provider Carina Rey MD Unavailable Unavailable Gary Burgess MD Unavailable [phone] Evelyn García RN Unavailable [phone] Porsha Garrido MD Unavailable Joselito Gold MD Unavailable [phone] Jolie Marrero PA-C Unavailable [phone] Porsha Garrido MD Unavailable [phone] Porsha Garrido MD Unavailable [phone] Joselito Casarez MD Unavailable Unavailable Michelle Nogueira APRN-THERMODYNAMICS ENGINEER Unavailable [phone] Porsha Garrido MD Unavailable Paloma Romo Unavailable [phone] Marjorie Weston DO Unavailable Reason for Visit * Reason Onset Date Comments MEDICATION REFILL 12/05/2019 Encounter Details Date Type Department Care Team (Late st Contact Info) Description 12/05/2019 Refill [facility] Medical Group - Family Medicine [address] [address] Porsha Garrido MD [address] [facility] [address] [place] [address] MEDICATION REFILL Social History Tobacco Use Types Packs/Day Years Used Date Smoking Tobacco: Never Smokeless Tobacco: Never Alcohol Use Standard Drinks/Week Comments Yes 0 (1 standard drink = 0.6 oz pur e alcohol) occasional Comments No Sex and Gender Information Value Date Recorded Sex Assigned at Not on file Legal Sex Female 12:18 PM PRINT PRODUCTION MANAGER Gender Identity Female 01/16/2019 9:49 AM CDT Sexual Orientation Not on file 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 Not on file Not [...] Javier Valadez RN documented in this encounter Miscellaneous Notes * Telephone Encounter [...] Description 10/05/2024 10:00 AM CDT Office Visit [facility] Breast Care - Surgery [address] [place] [phone] Satnam Nicole MD [address] [place] [phone] 10/12/2024 8:15 AM CDT Video Visit [facility] Medical [facility] - Family Medicine [address] [place] [address] Porsha Garrido MD [address] [place] [address] documented as of this encounter Visit Diagnoses Diagnosis JOHN (generalized anxiety disorder) Generalized anxiety disorder documented in this encounter Additional Health Concerns Infection Onset Date Last Indicated Resolved Time COVID-19 Under Investigation 04/01/2020 04/01/2020 04/02/2020 2:40 PM PRINT PRODUCTION MANAGER COVID-19 Confirmed 04/01/2020 04/01/2020 0 4:34 AM PRINT PRODUCTION MANAGER documented as of this encounter Care Teams Table Setter Relationship Specialty Start Date End Date Porsha Garrido MD [address] [place] [address] PCP - General 01/31/11 Porsha Garrido MD [address] [place] [address] PCP - Attributed-[employer] 08/15/19 07/13/20 Jolie Marrero PA-C [address] [place] [phone] PCP - Attributed-[employer] 07/14/20 08/13/20 Porsha Garrido MD [address] [place] [address] [id number] PCP - Attributed-[employer] 08/14/20 12/29/21 Porsha Garrido MD [address] [place] [address] PCP - Attributed-[place] [employer] 05/16/22 08/31/22 Porsha Garrido MD [address] [place] [address] PCP - Attributed-[place] [employer] [place] [employer] 11/13/22 07/31/24 Carina Rey MD [address] [place] [address] Obstetrics and Gynecology 10/27/11 07/14/20 Gary Burgess MD [address] [place] [address] [place] [address] Gastroenterology 08/22/13 Evelyn García, RN Customer Success Intern 01/05/15 06/07/24 Joselito Gold MD [address] [place] [address] Obstetrics and Gynecology 07/15/20 5 Joselito Casarez MD [address] [facility] [address] [place] [address] Hematology and Oncology 09/03/22 05/26/23 Michelle Nogueira, ASSOCIATE LOAN OFFICER-THERMODYNAMICS ENGINEER [address] [facility] [address] [place] [address] Nurse Practitioner Nurse Practitioner Adult Health 09/03/22 Paloma Romo Care Coordination Specialist Care Management 12/13/23 12/13/23 Marjorie Weston DO [address] [facility] [address] [place] [phone] Rheumatology 05/31/24 documented as of this encounter
--- OUTSIDE RECORDS SUMMARY | 2024-09-06 11:01 | XMS_ITS | Encounter Summary ---
Author Organization [facility] Address [address] [place] [address] Care Team Providers Care Tool Grinding Technician Name Role Phone Porsha Garrido MD Primary Care Provider Encounter Details Date Type Department Care Team (Late st Contact Info) Description 06/23/1999 Outpatient Historical [facility] Pediatrics [place] [address] [facility] [place] [phone] Deshawn Kitchen MD NO ADDRESS ON FILE Social History Tobacco Use Types Packs/Day Years Used Date Smoking Tobacco: Never Assessed Comments Unknown Sex and Gender Information Value Date Recorded Sex Assigned at Not on file Legal Sex Female 3:08 AM PRESS SETUP OPERATOR Gender Identity Not on file Sexual Orientation Not on file documented as of this encounter Plan of Treatment Upcoming Encounters Date Type Department Care Team (Late st Contact Info) Description 06/25/2025 3:10 PM PRESS SETUP OPERATOR Office Visit [facility] Gastroenterology [place] [address] [place] [address] Gary Burgess MD [address] [id number] [place] [address] 08/08/2025 10:30 AM CDT Office Visit [facility] Neurology [address] [place] [address] Rama De La Paz MD [address] [facility] [address] [place] [address] documented as of this encounter Visit Diagnoses Not on filedocumented in this encounter Additional Health Concerns Infection Onset Date Last Indicated Resolved Time R/O C. diff 05/21/2020 05/21/2020 05/21/2020 1:01 PM PRESS SETUP OPERATOR R/O C. diff 10/31/2021 10/30/2021 10/31/2021 3:51 PM CDT R/O C. diff 09/01/2022 08/31/2022 09/01/2022 5:17 PM CDT documented as of this encounter Care Teams Tool Grinding Technician Relationship Specialty Start Date End Date Porsha Garrido MD [address] [place] [address] PCP - General 03/04/09 documented as of this encounter
--- OUTSIDE RECORDS SUMMARY | 2024-09-06 11:01 | XMS_ITS | Encounter Summary ---
Author Organization [facility] Address [address] [place] [address] Care Team Providers Care Criminology Teacher Name Role Phone Porsha Garrido MD Primary Care Provider Encounter Details Date Type Department Care Team (Late st Contact Info) Description 07/17/2005 Outpatient Historical [facility] Demond Desai Jr., MD [address] [place] [address] Er, Authorized P NO ADDRESS ON FILE NONINFEC GASTROENTERIT NEC (Primary Dx) Social History Tobacco Use Types Packs/Day Years Used Date Smoking Tobacco: Never Assessed Comments Unknown Sex and Gender Information Value Date Recorded Sex Assigned at Not on file Legal Sex Female 3:08 AM MACHINE HOSTLER Gender Identity Not on file Sexual Orientation Not on file documented as of this encounter Plan of Treatment Upcoming Encounters Date Type Department Care Team (Late Contact Info) Description 06/25/2025 3:10 PM MACHINE HOSTLER Office Visit [facility] Gastroenterology [place] [address] [facility] [address] [place] [address] Gary Burgess MD [address] [facility] [id number] [place] [address] 08/08/2025 10:30 AM CDT Office Visit [facility] Neurology [address] [place] [address] Rama De La Paz MD [address] [place] [address] documented as of this encounter Procedures Procedure Name Priority Date/Time Associated Diagnosis Comments HCG QUALITATIVE, URINE Routine 07/17/2005 2:56 PM MACHINE HOSTLER URINALYSIS W/REFLEX MICROSCOPIC Routine 07/17/2005 2:48 PM MACHINE HOSTLER documented in this encounter Results * HCG QUALITATIVE, URINE (07/17/2005 2:56 PM MACHINE HOSTLER) HCG QUAL URINE Negative Negative INTER FACE SYSTEM SPECIFIC GRAVITY UA 1.025 1.001 - 1.035 INTERFACE SYSTEM HCG QUAL URINE COMMENT INTERFACE SYSTEM Comment: Urine in lab 07/17/2005 2:56 PM MACHINE HOSTLER Historical Provider URINE ORDERABLES Final Resul t Performing Organization Address [facility] de Phone Number INTERFACE SYSTEM Refer to clinic/hospital department * (ABNORMAL) URINALYSIS (07/17/2005 2:48 PM MACHINE HOSTLER) COLOR UA Yellow INTERFACE SYSTEM CLARITY UA [...] 4 /HPF INTERFACE SYSTEM 07/17/2005 2:48 PM MACHINE HOSTLER Historical Provider URINE ORDERABLES Final Resul t INTERFACE SYSTEM Refer to clinic/hospital department documented in this encounter Visit Diagnoses Diagnosis Other and unspecified noninfectious gastroenteritis and colitis(558.9)- Primary Other and unspecified noninfectious gastroenteritis and colitis documented in this encounter Additional Health Concerns Infection Onset Date Last Indicated Resolved Time R/O C. diff 05/21/2020 05/21/2020 05/21/2020 1:01 PM MACHINE HOSTLER R/O C. diff 10/31/2021 10/30/2021 10/31/2021 3:51 PM CDT R/O C. diff 09/01/2022 08/31/2022 09/01/2022 5:17 PM CDT documented as of this encounter Care Teams Criminology Teacher Relationship Specialty Start Date End Date Porsha Garrido MD [address] [place] [address] PCP - General 03/04/09 documented as of this encounter
--- OUTSIDE RECORDS SUMMARY | 2024-09-06 11:01 | XMS_ITS | Encounter Summary ---
Author Organization [facility] Address [address] [place] [address] Care Team Providers Care Horse Racing Manager Name Role Phone Porsha Garrido MD Primary Care Provider Encounter Details Date Type Department Care Team (Late st Contact Info) Description 08/07/2001 Outpatient Historical [facility] Pediatrics [place] [address] [place] [address] [place] [address] Deshawn Kitchen MD NO ADDRESS ON FILE Social History Tobacco Use Types Packs/Day Years Used Date Smoking Tobacco: Never Assessed Comments Unknown Sex and Gender Information Value Date Recorded Sex Assigned at Not on file Legal Sex Female 3:08 AM INSTANTIZER OPERATOR Gender Identity Not on file Sexual Orientation Not on file documented as of this encounter Plan of Treatment Upcoming Encounters Date Type Department Care Team (Late st Contact Info) Description 06/25/2025 3:10 PM INSTANTIZER OPERATOR Office Visit [facility] Gastroenterology [place] [address] [place] [address] Gary Burgess MD [address] [id number] [place] [address] 08/08/2025 10:30 AM CDT Office Visit [facility] Neurology [address] [place] [address] Rama De La Paz MD [address] [facility] [address] [place] [address] documented as of this encounter Visit Diagnoses Not on filedocumented in this encounter Additional Health Concerns Infection Onset Date Last Indicated Resolved Time R/O C. diff 05/21/2020 05/21/2020 05/21/2020 1:01 PM INSTANTIZER OPERATOR R/O C. diff 10/31/2021 10/30/2021 10/31/2021 3:51 PM CDT R/O C. diff 09/01/2022 08/31/2022 09/01/2022 5:17 PM CDT documented as of this encounter Care Teams Horse Racing Manager Relationship Specialty Start Date End Date Porsha Garrido MD [address] [place] [address] PCP - General 03/04/09 documented as of this encounter
--- OUTSIDE RECORDS SUMMARY | 2024-09-06 11:01 | XMS_ITS | Encounter Summary ---
Author Organization [facility] Address [address] [place] [address] Care Team Providers Care Buy Boat Operator Name Role Phone Porsha Garrido MD Primary Care Provider Encounter Details Date Type Department Care Team (Late st Contact Info) Description 03/29/2008 Outpatient Historical [facility] [place] [address] [place] [address] Blood in Stool Social History Tobacco Use Types Packs/Day Years Used Date Smoking Tobacco: Never Assessed Comments Unknown Sex and Gender Information Value Date Recorded Sex Assigned at Not on file Legal Sex Female 3:08 AM INHALATION THERAPY AIDE Gender Identity Not on file Sexual Orientation Not on file documented as of this encounter Plan of Treatment Upcoming Encounters Date Type Department Care Team (Late st Contact Info) Description 06/25/2025 3:10 PM INHALATION THERAPY AIDE Office Visit [facility] Gastroenterology [place] [address] [place] [address] Gary Burgess MD [address] [id number] [place] [address] 08/08/2025 10:30 AM CDT Office Visit [facility] Neurology [address] [place] [address] Rama De La Paz MD [address] [facility] [address] [place] [address] documented as of this encounter Procedures Procedure Name Priority Date/Time Associated Diagnosis Comments PATHOLOGY Routine 03/29/2008 11:10 AM INHALATION THERAPY AIDE POC , URINE Routine 03/29/2008 10:00 AM INHALATION THERAPY AIDE documented in this encounter Results * PATHOLOGY (03/29/2008 11:10 AM INHALATION THERAPY AIDE) FINAL REPORT [facility] [address] [place], [place] [address] Patient: ALLY ARREAGA : 1985 Procedure Date: 03/29/2008 Accession Date: 03/29/2008 Case No: [id number] Ordering Dr: ANAI GANT Case types AW, BW, FW, NW and SH are performed by [facility], [place], [place] SURGICAL PATHOLOGY & NON-GYNECOLOGIC CYTOPATHOLOGY REPORT [...] 03:01 pm Microscopic: The slides are labeled [id number], Ally Arreaga. The rectal mucosa contains scattered [...] normal, and there is no significant inflammation. SOMMERF/AMANDA 04.01.2008 10:47 am Staging Form: No. ELECTRONIC SIGNATURE FOR ELVIRA JULIAN M.D.- 04/01/08 11:20 am INTERFACE SYSTEM 03/29/2008 11:1 0 AM INHALATION THERAPY AIDE us Anai Gant MD PATHOLOGY/CYTOLOGY ORDERABLES F inal Result INTERFACE SYSTEM Refer to clinic/hospital department * POC , URINE (03/29/2008 10:00 AM INHALATION THERAPY AIDE) , URINE POC Negative Negative [facility] Urine specimen (specimen) 03/29/2008 10:00 AM INHALATION THERAPY AIDE 03/29/2008 10:00 AM INHALATION THERAPY AIDE us Anai Gant MD POINT OF CARE TESTING Final Res ult INTERFACE SYSTEM Refer to clinic/hospital department [facility] CLIA# [id number] [address] [facility] [place] [address] documented in this encounter Visit Diagnoses Diagnosis Blood in stool documented in this encounter Additional Health Concerns Infection Onset Date Last Indicated Resolved Time R/O C. diff 05/21/2020 05/21/2020 05/21/2020 1:01 PM INHALATION THERAPY AIDE R/O C. diff 10/31/2021 10/30/2021 10/31/2021 3:51 PM CDT R/O C. diff 09/01/2022 08/31/2022 09/01/2022 5:17 PM CDT documented as of this encounter Care Teams Buy Boat Operator Relationship Specialty Start Date End Date Porsha Garrido MD [address] [place] [address] PCP - General 03/04/09 documented as of this encounter
--- OUTSIDE RECORDS SUMMARY | 2024-09-06 11:01 | XMS_ITS | Encounter Summary ---
Author Organization [facility] Address [address] [place] [address] Care Team Providers Care Technical Sales Specialist Name Role Phone Porsha Garrido MD Primary Care Provider Encounter Details Date Type Department Care Team (Late st Contact Info) Description 01/02/1998 Outpatient Historical [facility] Pediatrics [place] [address] [facility] [place] [address] Deshawn Kitchen MD NO ADDRESS ON FILE Social History Tobacco Use Types Packs/Day Years Used Date Smoking Tobacco: Never Assessed Comments Unknown Sex and Gender Information Value Date Recorded Sex Assigned at Not on file Legal Sex Female 3:08 AM NUT GRINDER Gender Identity Not on file Sexual Orientation Not on file documented as of this encounter Plan of Treatment Upcoming Encounters Date Type Department Care Team (Late st Contact Info) Description 06/25/2025 3:10 PM NUT GRINDER Office Visit [facility] Gastroenterology [place] [address] [place] [address] Gary Burgess MD [address] [id number] [place] [address] 08/08/2025 10:30 AM CDT Office Visit [facility] Neurology [address] [place] [address] Rama De La Paz MD [address] [facility] [address] [place] [address] documented as of this encounter Visit Diagnoses Not on filedocumented in this encounter Additional Health Concerns Infection Onset Date Last Indicated Resolved Time R/O C. diff 05/21/2020 05/21/2020 05/21/2020 1:01 PM NUT GRINDER R/O C. diff 10/31/2021 10/30/2021 10/31/2021 3:51 PM CDT R/O C. diff 09/01/2022 08/31/2022 09/01/2022 5:17 PM CDT documented as of this encounter Care Teams Technical Sales Specialist Relationship Specialty Start Date End Date Porsha Garrido MD [address] [place] [address] PCP - General 03/04/09 documented as of this encounter
--- OUTSIDE RECORDS SUMMARY | 2024-09-06 11:01 | XMS_ITS | Encounter Summary ---
Author Organization [facility] Address [address] [place] [address] Care Team Providers Care Cargo Services Coordinator Name Role Phone Porsha Garrido MD Primary Care Provider [phone] Encounter Details Date Type Department Care Team (Late st Contact Info) Description 10/13/2005 Outpatient Historical [facility] Pediatrics [place] [address] [facility] [place] [address] Deshawn Kitchen MD NO ADDRESS ON FILE Social History Tobacco Use Types Packs/Day Years Used Date Smoking Tobacco: Never Assessed Comments Unknown Sex and Gender Information Value Date Recorded Sex Assigned at Not on file Legal Sex Female 3:08 AM TRAFFIC OBSERVER Gender Identity Not on file Sexual Orientation Not on file documented as of this encounter Plan of Treatment Upcoming Encounters Date Type Department Care Team (Late st Contact Info) Description 06/25/2025 3:10 PM TRAFFIC OBSERVER Office Visit [facility] Gastroenterology [place] [address] [place] [address] Gary Burgess MD [address] [id number] [place] [address] 08/08/2025 10:30 AM CDT Office Visit [facility] Neurology [address] [place] [address] Rama De La Paz MD [address] [facility] [address] [place] [address] documented as of this encounter Visit Diagnoses Not on filedocumented in this encounter Additional Health Concerns Infection Onset Date Last Indicated Resolved Time R/O C. diff 05/21/2020 05/21/2020 05/21/2020 1:01 PM TRAFFIC OBSERVER R/O C. diff 10/31/2021 10/30/2021 10/31/2021 3:51 PM CDT R/O C. diff 09/01/2022 08/31/2022 09/01/2022 5:17 PM CDT documented as of this encounter Care Teams Cargo Services Coordinator Relationship Specialty Start Date End Date Porsha Garrido MD [address] [place] [address] PCP - General 03/04/09 documented as of this encounter
--- OUTSIDE RECORDS SUMMARY | 2024-09-06 11:01 | XMS_ITS | Encounter Summary ---
Author Organization [facility] Address [address] [place] [address] Care Team Providers Care Acetylene Operator Name Role Phone Porsha Garrido MD Primary Care Provider [phone] Encounter Details Date Type Department Care Team (Late st Contact Info) Description 04/18/2000 Outpatient Historical [facility] [place] [address] [facility] [place] [address] Deshawn Kitchen MD NO ADDRESS ON FILE Social History Tobacco Use Types Packs/Day Years Used Date Smoking Tobacco: Never Assessed Comments Unknown Sex and Gender Information Value Date Recorded Sex Assigned at Not on file Legal Sex Female 3:08 AM ICE PLANT OPERATOR Gender Identity Not on file Sexual Orientation Not on file documented as of this encounter Plan of Treatment Upcoming Encounters Date Type Department Care Team (Late st Contact Info) Description 06/25/2025 3:10 PM ICE PLANT OPERATOR Office Visit [facility] Gastroenterology [place] [address] [place] [address] Gary Burgess MD [address] [id number] [place] [address] 08/08/2025 10:30 AM CDT Office Visit [facility] Neurology [address] [place] [address] Rama De La Paz MD [address] [facility] [address] [place] [address] documented as of this encounter Visit Diagnoses Not on filedocumented in this encounter Additional Health Concerns Infection Onset Date Last Indicated Resolved Time R/O C. diff 05/21/2020 05/21/2020 05/21/2020 1:01 PM ICE PLANT OPERATOR R/O C. diff 10/31/2021 10/30/2021 10/31/2021 3:51 PM CDT R/O C. diff 09/01/2022 08/31/2022 09/01/2022 5:17 PM CDT documented as of this encounter Care Teams Acetylene Operator Relationship Specialty Start Date End Date Porsha Garrido MD [address] [place] [address] PCP - General 03/04/09 documented as of this encounter
--- OUTSIDE RECORDS SUMMARY | 2024-09-06 11:01 | XMS_ITS | Encounter Summary ---
Author Organization [facility] Address [address] [place] [address] Care Team Providers Care Parking Lot Manager Name Role Phone Porsha Garrido MD Primary Care Provider Encounter Details Date Type Department Care Team (Late st Contact Info) Description 12/27/2001 Outpatient Historical [facility] Pediatric[facility] [place] [address] [facility] [place] [phone] Deshawn Kitchen MD NO ADDRESS ON FILE Social History Tobacco Use Types Packs/Day Years Used Date Smoking Tobacco: Never Assessed Comments Unknown Sex and Gender Information Value Date Recorded Sex Assigned at Not on file Legal Sex Female 3:08 AM OBGYN HOSPITALIST PHYSICIAN Gender Identity Not on file Sexual Orientation Not on file documented as of this encounter Plan of Treatment Upcoming Encounters Date Type Department Care Team (Late st Contact Info) Description 06/25/2025 3:10 PM OBGYN HOSPITALIST PHYSICIAN Office Visit [facility] Gastroenterology [place] [address] [place] [address] Gary Burgess MD [address] [id number] [place] [address] 08/08/2025 10:30 AM CDT Office Visit [facility] Neurology [address] [place] [address] Rama De La Paz MD [address] [facility] [address] [place] [address] documented as of this encounter Visit Diagnoses Not on filedocumented in this encounter Additional Health Concerns Infection Onset Date Last Indicated Resolved Time R/O C. diff 05/21/2020 05/21/2020 05/21/2020 1:01 PM OBGYN HOSPITALIST PHYSICIAN R/O C. diff 10/31/2021 10/30/2021 10/31/2021 3:51 PM CDT R/O C. diff 09/01/2022 08/31/2022 09/01/2022 5:17 PM CDT documented as of this encounter Care Teams Parking Lot Manager Relationship Specialty Start Date End Date Porsha Garrido MD [address] [place] [address] PCP - General 03/04/09 documented as of this encounter
--- OUTSIDE RECORDS SUMMARY | 2024-09-06 11:01 | XMS_ITS | Encounter Summary ---
Author Organization [facility] Address [address] [place] [address] Care Team Providers Care 3D Specialist Name Role Phone Porsha Garrido MD Primary Care Provider Encounter Details Date Type Department Care Team (Late st Contact Info) Description 03/08/2002 Outpatient Historical [facility] Pediatric[facility] [place] [address] [facility] [place] [address] [place] [address] Deshawn Kitchen MD NO ADDRESS ON FILE Social History Tobacco Use Types Packs/Day Years Used Date Smoking Tobacco: Never Assessed Comments Unknown Sex and Gender Information Value Date Recorded Sex Assigned at Not on file Legal Sex Female 3:08 AM MOLD FINISHER Gender Identity Not on file Sexual Orientation Not on file documented as of this encounter Plan of Treatment Upcoming Encounters Date Type Department Care Team (Late st Contact Info) Description 06/25/2025 3:10 PM MOLD FINISHER Office Visit [facility] Gastroenterology [place] [address] [place] [address] Gary Burgess MD [address] [id number] [place] [address] 08/08/2025 10:30 AM CDT Office Visit [facility] Neurology [address] [place] [address] Rama De La Paz MD [address] [facility] [address] [place] [address] documented as of this encounter Visit Diagnoses Not on filedocumented in this encounter Additional Health Concerns Infection Onset Date Last Indicated Resolved Time R/O C. diff 05/21/2020 05/21/2020 05/21/2020 1:01 PM MOLD FINISHER R/O C. diff 10/31/2021 10/30/2021 10/31/2021 3:51 PM CDT R/O C. diff 09/01/2022 08/31/2022 09/01/2022 5:17 PM CDT documented as of this encounter Care Teams 3D Specialist Relationship Specialty Start Date End Date Porsha Garrido MD [address] [place] [address] PCP - General 03/04/09 documented as of this encounter
--- OUTSIDE RECORDS SUMMARY | 2024-09-06 11:01 | XMS_ITS | Encounter Summary ---
Author Organization [facility] Address [address] [place] [address] Care Team Providers Care Tender Coordinator Name Role Phone Porsha Garrido MD Primary Care Provider Encounter Details Date Type Department Care Team (Late st Contact Info) Description 08/15/2001 Outpatient Historical [facility] [place] [address] [facility] [place] [address] [place] [address] Deshawn Kitchen MD NO ADDRESS ON FILE Social History Tobacco Use Types Packs/Day Years Used Date Smoking Tobacco: Never Assessed Comments Unknown Sex and Gender Information Value Date Recorded Sex Assigned at Not on file Legal Sex Female 3:08 AM CHANNEL ROUGHER Gender Identity Not on file Sexual Orientation Not on file documented as of this encounter Plan of Treatment Upcoming Encounters Date Type Department Care Team (Late st Contact Info) Description 06/25/2025 3:10 PM CHANNEL ROUGHER Office Visit [facility] Gastroenterology [place] [address] [place] [address] Gary Burgess MD [address] [id number] [place] [address] 08/08/2025 10:30 AM CDT Office Visit [facility] Neurology [address] [place] [address] Rama De La Paz MD [address] [facility] [address] [place] [address] documented as of this encounter Visit Diagnoses Not on filedocumented in this encounter Additional Health Concerns Infection Onset Date Last Indicated Resolved Time R/O C. diff 05/21/2020 05/21/2020 05/21/2020 1:01 PM CHANNEL ROUGHER R/O C. diff 10/31/2021 10/30/2021 10/31/2021 3:51 PM CDT R/O C. diff 09/01/2022 08/31/2022 09/01/2022 5:17 PM CDT documented as of this encounter Care Teams Tender Coordinator Relationship Specialty Start Date End Date Porsha Garrido MD [address] [place] [address] PCP - General 03/04/09 documented as of this encounter
--- OUTSIDE RECORDS SUMMARY | 2024-09-06 11:01 | XMS_ITS | Encounter Summary ---
Author Organization [facility] Address [address] [place] [address] Care Team Providers Care Java Integration Developer Name Role Phone Porsha Garrido MD Primary Care Provider Encounter Details Date Type Department Care Team (Late st Contact Info) Description 03/20/2001 Outpatient Historical [facility] Pediatric[facility] [place] [address] [facility] [place] [address] [place] [address] Deshawn Kitchen MD NO ADDRESS ON FILE Social History Tobacco Use Types Packs/Day Years Used Date Smoking Tobacco: Never Assessed Comments Unknown Sex and Gender Information Value Date Recorded Sex Assigned at Not on file Legal Sex Female 3:08 AM INDUCTION COORDINATION ENGINEER Gender Identity Not on file Sexual Orientation Not on file documented as of this encounter Plan of Treatment Upcoming Encounters Date Type Department Care Team (Late st Contact Info) Description 06/25/2025 3:10 PM INDUCTION COORDINATION ENGINEER Office Visit [facility] Gastroenterology [place] [address] [place] [address] Gary Burgess MD [address] [id number] [place] [address] 08/08/2025 10:30 AM CDT Office Visit [facility] Neurology [address] [place] [address] Rama De La Paz MD [address] [facility] [address] [place] [address] documented as of this encounter Visit Diagnoses Not on filedocumented in this encounter Additional Health Concerns Infection Onset Date Last Indicated Resolved Time R/O C. diff 05/21/2020 05/21/2020 05/21/2020 1:01 PM INDUCTION COORDINATION ENGINEER R/O C. diff 10/31/2021 10/30/2021 10/31/2021 3:51 PM CDT R/O C. diff 09/01/2022 08/31/2022 09/01/2022 5:17 PM CDT documented as of this encounter Care Teams Java Integration Developer Relationship Specialty Start Date End Date Porsha Garrido MD [address] [place] [address] PCP - General 03/04/09 documented as of this encounter
--- OUTSIDE RECORDS SUMMARY | 2024-09-06 11:01 | XMS_ITS | Encounter Summary ---
Author Organization [facility] Address [address] [place] [address] Care Team Providers Care Postdoctoral Scientist Name Role Phone Porsha Garrido MD Primary Care Provider Encounter Details Date Type Department Care Team (Late st Contact Info) Description 03/27/1999 Outpatient Historical [facility] [place] [address] [facility] [place] [address] Ally Keller MD [address] [facility] [address] [place] [address] Social History Tobacco Use Types Packs/Day Years Used Date Smoking Tobacco: Never Assessed Comments Unknown Sex and Gender Information Value Date Recorded Sex Assigned at Not on file Legal Sex Female 3:08 AM HEADING AND PRIMING TOOL SETTER Gender Identity Not on file Sexual Orientation Not on file documented as of this encounter Plan of Treatment Upcoming Encounters Date Type Department Care Team (Late st Contact Info) Description 06/25/2025 3:10 PM HEADING AND PRIMING TOOL SETTER Office Visit [facility] Gastroenterology [place] [address] [place] [address] Gary Burgess MD [address] [id number] [place] [address] 08/08/2025 10:30 AM CDT Office Visit [facility] Neurology [address] [facility] [address] [place] [address] Rama De La Paz MD [address] [facility] [address] [place] [address] documented as of this encounter Visit Diagnoses Not on filedocumented in this encounter Additional Health Concerns Infection Onset Date Last Indicated Resolved Time R/O C. diff 05/21/2020 05/21/2020 05/21/2020 1:01 PM HEADING AND PRIMING TOOL SETTER R/O C. diff 10/31/2021 10/30/2021 10/31/2021 3:51 PM CDT R/O C. diff 09/01/2022 08/31/2022 09/01/2022 5:17 PM CDT documented as of this encounter Care Teams Postdoctoral Scientist Relationship Specialty Start Date End Date Porsha Garrido MD [address] [place] [address] PCP - General 03/04/09 documented as of this encounter
--- OUTSIDE RECORDS SUMMARY | 2024-09-06 11:01 | XMS_ITS | Encounter Summary ---
Author Organization [facility] Address [address] [place] [address] Care Team Providers Care Shop Manager Name Role Phone Porsha Garrido MD Primary Care Provider Encounter Details Date Type Department Care Team (Late st Contact Info) Description 07/09/1998 Outpatient Historical [facility] [place] [address] [facility] [place] [address] Deshawn Kitchen MD NO ADDRESS ON FILE Social History Tobacco Use Types Packs/Day Years Used Date Smoking Tobacco: Never Assessed Comments Unknown Sex and Gender Information Value Date Recorded Sex Assigned at Not on file Legal Sex Female 3:08 AM DELI BAKERY CLERK Gender Identity Not on file Sexual Orientation Not on file documented as of this encounter Plan of Treatment Upcoming Encounters Date Type Department Care Team (Late st Contact Info) Description 06/25/2025 3:10 PM DELI BAKERY CLERK Office Visit [facility] Gastroenterology [place] [address] [place] [address] Gary Burgess MD [address] [id number] [place] [address] 08/08/2025 10:30 AM CDT Office Visit [facility] Neurology [address] [place] [address] Rama eD La Paz MD [address] [facility] [address] [place] [address] documented as of this encounter Visit Diagnoses Not on filedocumented in this encounter Additional Health Concerns Infection Onset Date Last Indicated Resolved Time R/O C. diff 05/21/2020 05/21/2020 05/21/2020 1:01 PM DELI BAKERY CLERK R/O C. diff 10/31/2021 10/30/2021 10/31/2021 3:51 PM CDT R/O C. diff 09/01/2022 08/31/2022 09/01/2022 5:17 PM CDT documented as of this encounter Care Teams Shop Manager Relationship Specialty Start Date End Date Porsha Garrido MD [address] [place] [address] PCP - General 03/04/09 documented as of this encounter
--- OUTSIDE RECORDS SUMMARY | 2024-09-06 11:01 | XMS_ITS | Encounter Summary ---
Author Organization [facility] Address [address] [place] [address] Care Team Providers Care Applications Programmer Name Role Phone Porsha Garrido MD Primary Care Provider Encounter Details Date Type Department Care Team (Latest Contact Info) Description 07/23/2008 Outpatient Historical [facility] [place] Cummings MD NO ADDRESS ON FILE Lumbago; Unspecified Asthma; Esophageal Reflux Social History Tobacco Use Types Packs/Day Years Used Date Smoking Tobacco: Never Assessed Comments Unknown Sex and Gender Information Value Date Recorded Sex Assigned at Not on file Legal Sex Female 3:08 AM MAGNETIC HEALER Gender Identity Not on file Sexual Orientation Not on file documented as of this encounter Plan of Treatment Upcoming Encounters Date Type Department Care Team (Late st Contact Info) Description 06/25/2025 3:10 PM MAGNETIC HEALER Office Visit [facility] Gastroenterology [place] [address] [place] [address] Gary Burgess MD [address] [id number] [place] [address] 08/08/2025 10:30 AM CDT Office Visit [facility] Neurology [address] [place] [address] Rama De La Paz MD [address] [facility] [address] [place] [address] documented as of this encounter Visit Diagnoses Diagnosis Lumbago Unspecified asthma(493.90) Unspecified asthma Esophageal reflux documented in this encounter Additional Health Concerns Infection Onset Date Last Indicated Resolved Time R/O C. diff 05/21/2020 05/21/2020 05/21/2020 1:01 PM MAGNETIC HEALER R/O C. diff 10/31/2021 10/30/2021 10/31/2021 3:51 PM CDT R/O C. diff 09/01/2022 08/31/2022 09/01/2022 5:17 PM CDT documented as of this encounter Care Teams Applications Programmer Relationship Specialty Start Date End Date Porsha Garrido MD [address] [place] [address] PCP - General 03/04/09 documented as of this encounter
--- OUTSIDE RECORDS SUMMARY | 2024-09-06 11:01 | XMS_ITS | Encounter Summary ---
Author Organization [facility] Address [address] [place] [address] Care Team Providers Care Hose Suspender Cutter Name Role Phone Porsha Garrido MD Primary Care Provider Encounter Details Date Type Department Care Team (Late st Contact Info) Description 05/11/2002 Outpatient Historical [facility] [place] [address] [facility] [place] [address] Deshawn Kitchen MD NO ADDRESS ON FILE Social History Tobacco Use Types Packs/Day Years Used Date Smoking Tobacco: Never Assessed Comments Unknown Sex and Gender Information Value Date Recorded Sex Assigned at Not on file Legal Sex Female 3:08 AM ROLL FILLER Gender Identity Not on file Sexual Orientation Not on file documented as of this encounter Plan of Treatment Upcoming Encounters Date Type Department Care Team (Late st Contact Info) Description 06/25/2025 3:10 PM ROLL FILLER Office Visit [facility] Gastroenterology [place] [address] [place] [address] Gary Burgess MD [address] [id number] [place] [address] 08/08/2025 10:30 AM CDT Office Visit [facility] Neurology [address] [place] [address] Rama De La Paz MD [address] [facility] [address] [place] [address] documented as of this encounter Visit Diagnoses Not on filedocumented in this encounter Additional Health Concerns Infection Onset Date Last Indicated Resolved Time R/O C. diff 05/21/2020 05/21/2020 05/21/2020 1:01 PM ROLL FILLER R/O C. diff 10/31/2021 10/30/2021 10/31/2021 3:51 PM CDT R/O C. diff 09/01/2022 08/31/2022 09/01/2022 5:17 PM CDT documented as of this encounter Care Teams Hose Suspender Cutter Relationship Specialty Start Date End Date Porsha Garrido MD [address] [place] [address] PCP - General 03/04/09 documented as of this encounter
--- OUTSIDE RECORDS SUMMARY | 2024-09-06 11:01 | XMS_ITS | Encounter Summary ---
Author Organization [facility] Address [address] [place] [address] Care Team Providers Care Senior Quality Control Technician Name Role Phone Porsha Garrido MD Primary Care Provider Encounter Details Date Type Department Care Team (Late st Contact Info) Description 06/25/1998 Outpatient Historical [facility] Pediatrics [place] [address] [facility] [place] [address] Deshawn Kitchen MD NO ADDRESS ON FILE Social History Tobacco Use Types Packs/Day Years Used Date Smoking Tobacco: Never Assessed Comments Unknown Sex and Gender Information Value Date Recorded Sex Assigned at Not on file Legal Sex Female 3:08 AM HCC CODERS Gender Identity Not on file Sexual Orientation Not on file documented as of this encounter Plan of Treatment Upcoming Encounters Date Type Department Care Team (Late st Contact Info) Description 06/25/2025 3:10 PM HCC CODERS Office Visit [facility] Gastroenterology [place] [address] [place] [address] Gary Burgess MD [address] [id number] [place] [address] 08/08/2025 10:30 AM CDT Office Visit [facility] Neurology [address] [place] [address] Rama De La Paz MD [address] [facility] [address] [place] [address] documented as of this encounter Visit Diagnoses Not on filedocumented in this encounter Additional Health Concerns Infection Onset Date Last Indicated Resolved Time R/O C. diff 05/21/2020 05/21/2020 05/21/2020 1:01 PM HCC CODERS R/O C. diff 10/31/2021 10/30/2021 10/31/2021 3:51 PM CDT R/O C. diff 09/01/2022 08/31/2022 09/01/2022 5:17 PM CDT documented as of this encounter Care Teams Senior Quality Control Technician Relationship Specialty Start Date End Date Porsha Garrido MD [address] [place] [address] PCP - General 03/04/09 documented as of this encounter
--- OUTSIDE RECORDS SUMMARY | 2024-09-06 11:01 | XMS_ITS | Encounter Summary ---
Author Organization [facility] Address [address] [place] [address] Care Team Providers Care Sand Mill Operator Core Sand Name Role Phone Porsha Garrido MD Primary Care Provider Encounter Details Date Type Department Care Team (Late st Contact Info) Description 10/23/2001 Outpatient Historical [facility] [place] [address] [facility] [place] [address] [place] [address] Deshawn Kitchen MD NO ADDRESS ON FILE Social History Tobacco Use Types Packs/Day Years Used Date Smoking Tobacco: Never Assessed Comments Unknown Sex and Gender Information Value Date Recorded Sex Assigned at Not on file Legal Sex Female 3:[address] CAPTAIN Gender Identity Not on file Sexual Orientation Not on file documented as of this encounter Plan of Treatment Upcoming Encounters Date Type Department Care Team (Late st Contact Info) Description 06/25/2025 3:[address] CAPTAIN Office Visit [facility] Gastroenterology [place] [address] [place] [address] Gary Burgess MD [address] [id number] [place] [address] 08/08/2025 10:30 AM CDT Office Visit [facility] Neurology [address] [place] [address] Rama De La Paz MD [address] [facility] [address] [place] [address] documented as of this encounter Visit Diagnoses Not on filedocumented in this encounter Additional Health Concerns Infection Onset Date Last Indicated Resolved Time R/O C. diff 05/21/2020 05/21/2020 05/21/2020 1:[address] CAPTAIN R/O C. diff 10/31/2021 10/30/2021 10/31/2021 3:51 PM CDT R/O C. diff 09/01/2022 08/31/2022 09/01/2022 5:17 PM CDT documented as of this encounter Care Teams Sand Mill Operator Core Sand Relationship Specialty Start Date End Date Porsha Garrido MD [address] [place] [address] PCP - General 03/04/09 documented as of this encounter
--- OUTSIDE RECORDS SUMMARY | 2024-09-06 11:01 | XMS_ITS | Encounter Summary ---
Author Organization [facility] Address [address] [place] [address] Care Team Providers Care Cat Scanner Operator Name Role Phone Porsha Garrido MD Primary Care Provider Encounter Details Date Type Department Care Team (Late st Contact Info) Description 04/01/2005 Outpatient Historical [facility] [place] [address] [place] [address] ABDOMINAL PAIN UNSPEC SITE (Primary Dx) Social History Tobacco Use Types Packs/Day Years Used Date Smoking Tobacco: Never Assessed Comments Unknown Sex and Gender Information Value Date Recorded Sex Assigned at Not on file Legal Sex Female 3:08 AM WOOD SCALER Gender Identity Not on file Sexual Orientation Not on file documented as of this encounter Plan of Treatment Upcoming Encounters Date Type Department Care Team (Late st Contact Info) Description 06/25/2025 3:10 PM WOOD SCALER Office Visit [facility] Gastroenterology [place] [address] [place] [address] Gary Burgess MD [address] [id number] [place] [address] 08/08/2025 10:30 AM CDT Office Visit [facility] Neurology [address] [place] [address] Rama De La Paz MD [address] [facility] [address] [place] [address] documented as of this encounter Visit Diagnoses Diagnosis Abdominal pain, unspecified site- Primary documented in this encounter Additional Health Concerns Infection Onset Date Last Indicated Resolved Time R/O C. diff 05/21/2020 05/21/2020 05/21/2020 1:01 PM WOOD SCALER R/O C. diff 10/31/2021 10/30/2021 10/31/2021 3:51 PM CDT R/O C. diff 09/01/2022 08/31/2022 09/01/2022 5:17 PM CDT documented as of this encounter Care Teams Cat Scanner Operator Relationship Specialty Start Date End Date Porsha Garrido MD [address] [place] [address] PCP - General 03/04/09 documented as of this encounter
--- OUTSIDE RECORDS SUMMARY | 2024-09-06 11:01 | XMS_ITS | Encounter Summary ---
Author Organization [facility] Address [address] [place] [address] Care Team Providers Care Government Affairs Fellow Name Role Phone Porsha Garrido MD Primary Care Provider Encounter Details Date Type Department Care Team (Late st Contact Info) Description 10/27/2005 Outpatient Historical [facility] Pediatrics [place] [address] [facility] [place] [address] [place] [phone] Deshawn Kitchen MD NO ADDRESS ON FILE Social History Tobacco Use Types Packs/Day Years Used Date Smoking Tobacco: Never Assessed Comments Unknown Sex and Gender Information Value Date Recorded Sex Assigned at Not on file Legal Sex Female 3:08 AM SPORTS BOOK WRITER Gender Identity Not on file Sexual Orientation Not on file documented as of this encounter Plan of Treatment Upcoming Encounters Date Type Department Care Team (Late st Contact Info) Description 06/25/2025 3:10 PM SPORTS BOOK WRITER Office Visit [facility] Gastroenterology [place] [address] [place] [address] Gary Burgess MD [address] [id number] [place] [address] 08/08/2025 10:30 AM CDT Office Visit [facility] Neurology [address] [place] [address] Rama De La Paz MD [address] [facility] [address] [place] [address] documented as of this encounter Visit Diagnoses Not on filedocumented in this encounter Additional Health Concerns Infection Onset Date Last Indicated Resolved Time R/O C. diff 05/21/2020 05/21/2020 05/21/2020 1:01 PM SPORTS BOOK WRITER R/O C. diff 10/31/2021 10/30/2021 10/31/2021 3:51 PM CDT R/O C. diff 09/01/2022 08/31/2022 09/01/2022 5:17 PM CDT documented as of this encounter Care Teams Government Affairs Fellow Relationship Specialty Start Date End Date Porsha Garrido MD [address] [place] [address] PCP - General 03/04/09 documented as of this encounter
--- OUTSIDE RECORDS SUMMARY | 2024-09-06 11:01 | XMS_ITS | Encounter Summary ---
Author Organization [facility] Address [address] [place] [address] Care Team Providers Care Ground School Instructor Name Role Phone Porsha Garrido MD Primary Care Provider Encounter Details Date Type Department Care Team (Late st Contact Info) Description 05/14/2000 Outpatient Historical [facility] Pediatrics [place] [address] [facility] [place] [address] [place] [address] Deshawn Kitchen MD NO ADDRESS ON FILE Social History Tobacco Use Types Packs/Day Years Used Date Smoking Tobacco: Never Assessed Comments Unknown Sex and Gender Information Value Date Recorded Sex Assigned at Not on file Legal Sex Female 3:08 AM PLUG MAKER Gender Identity Not on file Sexual Orientation Not on file documented as of this encounter Plan of Treatment Upcoming Encounters Date Type Department Care Team (Late st Contact Info) Description 06/25/2025 3:10 PM PLUG MAKER Office Visit [facility] Gastroenterology [place] [address] [place] [address] Gary Burgess MD [address] [id number] [place] [address] 08/08/2025 10:30 AM CDT Office Visit [facility] Neurology [address] [place] [address] Rama De La Paz MD [address] [facility] [address] [place] [address] documented as of this encounter Visit Diagnoses Not on filedocumented in this encounter Additional Health Concerns Infection Onset Date Last Indicated Resolved Time R/O C. diff 05/21/2020 05/21/2020 05/21/2020 1:01 PM PLUG MAKER R/O C. diff 10/31/2021 10/30/2021 10/31/2021 3:51 PM CDT R/O C. diff 09/01/2022 08/31/2022 09/01/2022 5:17 PM CDT documented as of this encounter Care Teams Ground School Instructor Relationship Specialty Start Date End Date Porsha Garrido MD [address] [place] [address] PCP - General 03/04/09 documented as of this encounter
--- OUTSIDE RECORDS SUMMARY | 2024-09-06 11:01 | XMS_ITS | Encounter Summary ---
Author Organization [facility] Address [address] [place] [address] Care Team Providers Care Structural Fitter Name Role Phone Porsha Garrido MD Primary Care Provider Encounter Details Date Type Department Care Team (Late st Contact Info) Description 01/17/1998 Outpatient Historical [facility] Pediatrics [place] [address] [facility] [place] [address] Eduardo Mason MD NO ADDRESS ON FILE Social History Tobacco Use Types Packs/Day Years Used Date Smoking Tobacco: Never Assessed Comments Unknown Sex and Gender Information Value Date Recorded Sex Assigned at Not on file Legal Sex Female 3:08 AM SUPERANNUATION CLERK Gender Identity Not on file Sexual Orientation Not on file documented as of this encounter Plan of Treatment Upcoming Encounters Date Type Department Care Team (Late st Contact Info) Description 06/25/2025 3:10 PM SUPERANNUATION CLERK Office Visit [facility] Gastroenterology [place] [address] [place] [address] Gary Burgess MD [address] [id number] [place] [address] 08/08/2025 10:30 AM CDT Office Visit [facility] Neurology [address] [place] [address] Rama De La Paz MD [address] [facility] [address] [place] [address] documented as of this encounter Visit Diagnoses Not on filedocumented in this encounter Additional Health Concerns Infection Onset Date Last Indicated Resolved Time R/O C. diff 05/21/2020 05/21/2020 05/21/2020 1:01 PM SUPERANNUATION CLERK R/O C. diff 10/31/2021 10/30/2021 10/31/2021 3:51 PM CDT R/O C. diff 09/01/2022 08/31/2022 09/01/2022 5:17 PM CDT documented as of this encounter Care Teams Structural Fitter Relationship Specialty Start Date End Date Porsha Garrido MD [address] [place] [address] [address] [place] [address] PCP - General 03/04/09 documented as of this encounter
--- OUTSIDE RECORDS SUMMARY | 2024-09-06 11:01 | XMS_ITS | Encounter Summary ---
Author Organization [facility] Address [address] [place] [address] Care Team Providers Care Still Operator Gin Name Role Phone Porsha Garrido MD Primary Care Provider Encounter Details Date Type Department Care Team (Late st Contact Info) Description 04/03/2001 Outpatient Historical [facility] Pediatrics [place] [address] [facility] [place] [address] Deshawn Kitchen MD NO ADDRESS ON FILE Social History Tobacco Use Types Packs/Day Years Used Date Smoking Tobacco: Never Assessed Comments Unknown Sex and Gender Information Value Date Recorded Sex Assigned at Not on file Legal Sex Female 3:08 AM PIECE DYE WORKER Gender Identity Not on file Sexual Orientation Not on file documented as of this encounter Plan of Treatment Upcoming Encounters Date Type Department Care Team (Late st Contact Info) Description 06/25/2025 3:10 PM PIECE DYE WORKER Office Visit [facility] Gastroenterology [place] [address] [place] [address] Gary Burgess MD [address] [id number] [place] [address] 08/08/2025 10:30 AM CDT Office Visit [facility] Neurology [address] [address] [place] [address] Rama De La Paz MD [address] [facility] [address] [place] [address] documented as of this encounter Visit Diagnoses Not on filedocumented in this encounter Additional Health Concerns Infection Onset Date Last Indicated Resolved Time R/O C. diff 05/21/2020 05/21/2020 05/21/2020 1:01 PM PIECE DYE WORKER R/O C. diff 10/31/2021 10/30/2021 10/31/2021 3:51 PM CDT R/O C. diff 09/01/2022 08/31/2022 09/01/2022 5:17 PM CDT documented as of this encounter Care Teams Still Operator Gin Relationship Specialty Start Date End Date Porsha Garrido MD [address] [place] [address] PCP - General 03/04/09 documented as of this encounter
--- OUTSIDE RECORDS SUMMARY | 2024-09-06 11:02 | XMS_ITS | Encounter Summary ---
Author Organization [facility] Address [address] [place] [address] Care Team Providers Care Agricultural Service Technician Name Role Phone Porsha Garrido MD Primary Care Provider Encounter Details Date Type Department Care Team (Late st Contact Info) Description 07/16/2005 Outpatient Historical [facility] Enrico Felix MD [address] [facility] [place] [address] Er, Authorized P NO ADDRESS ON FILE URIN TRACT INFECTION NOS (Primary Dx) Social History Tobacco Use Types Packs/Day Years Used Date Smoking Tobacco: Never Assessed Comments Unknown Sex and Gender Information Value Date Recorded Sex Assigned at Not on file Legal Sex Female 3:08 AM METAL TEMPLATE MAKER Gender Identity Not on file Sexual Orientation Not on file documented as of this encounter Plan of Treatment Upcoming Encounters Date Type Department Care Team (Late st Contact Info) Description 06/25/2025 3:10 PM METAL TEMPLATE MAKER Office Visit [facility] Gastroenterology [place] [address] [place] [address] Gary Burgess MD [address] [address] [facility] [address] [id number] [place] [address] 08/08/2025 10:30 AM CDT Office Visit [facility] Neurology [address] [place] [address] Rama De La Paz MD [address] [place] [address] documented as of this encounter Procedures Procedure Name Priority Date/Time Associated Diagnosis Comments URINALYSIS WITH MICROSCOPIC Routine 07/16/2005 1:15 PM METAL TEMPLATE MAKER HCG QUALITATIVE, URINE Routine 07/16/2005 1:15 PM METAL TEMPLATE MAKER CBC WITH DIFFERENTIAL Routine 07/16/2005 12:35 PM METAL TEMPLATE MAKER CBC WITH DIFFERENTIAL Routine 07/16/2005 12:35 PM METAL TEMPLATE MAKER documented in this encounter Results * HCG QUALITATIVE, URINE (07/16/2005 1:15 PM METAL TEMPLATE MAKER) HCG QUAL URINE Negative Negative INTER FACE SYSTEM SPECIFIC GRAVITY UA 1.030 1.001 - 1.035 INTERFACE SYSTEM 07/16/2005 1:15 PM METAL TEMPLATE MAKER Enrico Felix MD URINE ORDERABLES Final Result INTERFACE SYSTEM Refer to clinic/hospital department * (ABNORMAL) URINALYSIS WITH MICROSCOPIC (07/16/2005 1:15 PM METAL TEMPLATE MAKER) COLOR UA Yellow INTERFACE SYSTEM CLARITY UA [...] 5-10 /HPF INTERFACE SYSTEM 07/16/2005 1:15 PM METAL TEMPLATE MAKER [facility] Provider URINE ORDERABLES Final Resul t Performing Organization Address [facility] Phone Number INTERFACE SYSTEM Refer to clinic/hospital department * (ABNORMAL) CBC WITH DIFFERENTIAL (07/16/2005 12:35 PM METAL TEMPLATE MAKER) NEUTROPHILS 89(H) 45 - 70 % INTERFAC [...] K/uL INTERFACE SYSTEM 07/16/2005 12:3 5 PM METAL TEMPLATE MAKER Historical Provider HEMATOLOGY ORDERABLES Final Result Performing Organization Address [facility] Phone Number INTERFACE SYSTEM Refer to clinic/hospital department * (ABNORMAL) CBC WITH DIFFERENTIAL (07/16/2005 12:35 PM METAL TEMPLATE MAKER) WBC 7.8 4.0 - 9.8 K/uL INTERFACE [...] fL INTERFACE SYSTEM 07/16/2005 12:3 5 PM METAL TEMPLATE MAKER us Historical Provider HEMATOLOGY ORDERABLES Final Result INTERFACE SYSTEM Refer to clinic/hospital department documented in this encounter Visit Diagnoses Diagnosis Urinary tract infection, site not specified- Primary documented in this encounter Additional Health Concerns Infection Onset Date Last Indicated Resolved Time R/O C. diff 05/21/2020 05/21/2020 05/21/2020 1:01 PM METAL TEMPLATE MAKER R/O C. diff 10/31/2021 10/30/2021 10/31/2021 3:51 PM CDT R/O C. diff 09/01/2022 08/31/2022 09/01/2022 5:17 PM CDT documented as of this encounter Care Teams Agricultural Service Technician Relationship Specialty Start Date End Date Porsha Garrido MD [address] [place] [address] PCP - General 03/04/09 documented as of this encounter
--- OUTSIDE RECORDS SUMMARY | 2024-09-06 11:02 | XMS_ITS | Encounter Summary ---
Author Organization [facility] Address [address] [place] [address] Care Team Providers Care Mail Weigher Name Role Phone Porsha Garrido MD Primary Care Provider Encounter Details Date Type Department Care Team (Late st Contact Info) Description 06/29/2005 Outpatient Historical [facility] Pediatrics [place] [address] [facility] [place] [address] Deshawn Kitchen MD NO ADDRESS ON FILE Social History Tobacco Use Types Packs/Day Years Used Date Smoking Tobacco: Never Assessed Comments Unknown Sex and Gender Information Value Date Recorded Sex Assigned at Not on file Legal Sex Female 3:08 AM GREENS TIER Gender Identity Not on file Sexual Orientation Not on file documented as of this encounter Plan of Treatment Upcoming Encounters Date Type Department Care Team (Late st Contact Info) Description 06/25/2025 3:10 PM GREENS TIER Office Visit [facility] Gastroenterology [place] [address] [place] [address] Gary Burgess MD [address] [id number] [place] [address] 08/08/2025 10:30 AM CDT Office Visit [facility] Neurology [address] [place] [address] Rama De La Paz MD [address] [facility] [address] [place] [address] documented as of this encounter Visit Diagnoses Not on filedocumented in this encounter Additional Health Concerns Infection Onset Date Last Indicated Resolved Time R/O C. diff 05/21/2020 05/21/2020 05/21/2020 1:01 PM GREENS TIER R/O C. diff 10/31/2021 10/30/2021 10/31/2021 3:51 PM CDT R/O C. diff 09/01/2022 08/31/2022 09/01/2022 5:17 PM CDT documented as of this encounter Care Teams Mail Weigher Relationship Specialty Start Date End Date Porsha Garrido MD [address] [place] [address] PCP - General 03/04/09 documented as of this encounter
--- OUTSIDE RECORDS SUMMARY | 2024-09-06 11:02 | XMS_ITS | Encounter Summary ---
Author Organization [facility] Address [address] [place] [address] Care Team Providers Care Buckler And Lacer Name Role Phone Porsha Garrido MD Primary Care Provider Encounter Details Date Type Department Care Team (Late st Contact Info) Description 07/16/2002 Outpatient Historical [facility] Pediatrics [place] [address] [facility] [address] [place] [address] Deshawn Kitchen MD NO ADDRESS ON FILE Social History Tobacco Use Types Packs/Day Years Used Date Smoking Tobacco: Never Assessed Comments Unknown Sex and Gender Information Value Date Recorded Sex Assigned at Not on file Legal Sex Female 3:08 AM MILKER MACHINE Gender Identity Not on file Sexual Orientation Not on file documented as of this encounter Plan of Treatment Upcoming Encounters Date Type Department Care Team (Late st Contact Info) Description 06/25/2025 3:10 PM MILKER MACHINE Office Visit [facility] Gastroenterology [place] [address] [place] [address] Gary Burgess MD [address] [id number] [place] [address] 08/08/2025 10:30 AM CDT Office Visit [facility] Neurology [address] [address] [place] [address] Rama De La Paz MD [address] [facility] [address] [place] [address] documented as of this encounter Visit Diagnoses Not on filedocumented in this encounter Additional Health Concerns Infection Onset Date Last Indicated Resolved Time R/O C. diff 05/21/2020 05/21/2020 05/21/2020 1:01 PM MILKER MACHINE R/O C. diff 10/31/2021 10/30/2021 10/31/2021 3:51 PM CDT R/O C. diff 09/01/2022 08/31/2022 09/01/2022 5:17 PM CDT documented as of this encounter Care Teams Buckler And Lacer Relationship Specialty Start Date End Date Porsha Garrido MD [address] [place] [address] PCP - General 03/04/09 documented as of this encounter
--- OUTSIDE RECORDS SUMMARY | 2024-09-06 11:02 | XMS_ITS | Encounter Summary ---
Author Organization [facility] Address [address] [place] [address] Care Team Providers Care Tire Builder Heavy Service Name Role Phone Porsha Garrido MD Primary Care Provider Encounter Details Date Type Department Care Team (Late st Contact Info) Description 06/29/2005 Orders Only [facility] Pediatrics [place] [address] [facility] [place] [address] [place] [address] Vandana Hernandez NP NO ADDRESS ON FILE Social History Tobacco Use Types Packs/Day Years Used Date Smoking Tobacco: Never Assessed Comments Unknown Sex and Gender Information Value Date Recorded Sex Assigned at Not on file Legal Sex Female 3:08 AM PROPERTY DISPOSAL MANAGER Gender Identity Not on file Sexual [...] patient (alone). ALLERGIES: CURRENT ALLERGY LIST: [facility] MEDICATIONS: RN/MA reviewed medications.naeem, adv, nexium CHIEF [...] was negative. ASSESSMENT/PLAN: 789.07-ABDOMINAL PAIN GENERALIZED ? SOCIAL WORKER CLINICAL in nature Abdominal and pelvic US scheduled for 06/[address] [facility]. Call sooner if any increased sxs develop Electronically Signed by: YUSUF Ferrari on Wednesday, June 29, 2005 Electronically Signed by: Deshawn Kitchen MD on Thursday, June 30, 2005 documented in this encounter Plan of Treatment Upcoming Encounters Date Type Department Care Team (Late st Contact Info) Description 06/25/2025 3:10 PM PROPERTY DISPOSAL MANAGER Office Visit [facility] Gastroenterology [facility] [address] [place] [address] Gary Burgess MD [address] [id number] [place] [address] 08/08/2025 10:30 AM CDT Office Visit [facility] [address] [facility] [address] [place] [address] Rama De La Paz MD [address] [facility] [address] [place] [address] documented as of this encounter Visit Diagnoses Not on filedocumented in this encounter Additional Health Concerns Infection Onset Date Last Indicated Resolved Time R/O C. diff 05/21/2020 05/21/2020 05/21/2020 1:01 PM PROPERTY DISPOSAL MANAGER R/O C. diff 10/31/2021 10/30/2021 10/31/2021 3:51 PM CDT R/O C. diff 09/01/2022 08/31/2022 09/01/2022 5:17 PM CDT documented as of this encounter Care Teams Tire Builder Heavy Service Relationship Specialty Start Date End Date Porsha Garrido MD [address] [place] [address] PCP - General 03/04/09 documented as of this encounter
--- OUTSIDE RECORDS SUMMARY | 2024-09-06 11:02 | XMS_ITS | Encounter Summary ---
Author Organization [facility] Address [address] [place] [address] Care Team Providers Care Paratransit Operator Name Role Phone Porsha Garrido MD Primary Care Provider Encounter Details Date Type Department Care Team (Late st Contact Info) Description 08/01/2002 Outpatient Historical [facility] Pediatrics [place] [address] [facility] [place] [address] Deshawn Kitchen MD NO ADDRESS ON FILE Social History Tobacco Use Types Packs/Day Years Used Date Smoking Tobacco: Never Assessed Comments Unknown Sex and Gender Information Value Date Recorded Sex Assigned at Not on file Legal Sex Female 3:08 AM CHAIR AND COUCH MAKER Gender Identity Not on file Sexual Orientation Not on file documented as of this encounter Plan of Treatment Upcoming Encounters Date Type Department Care Team (Late st Contact Info) Description 06/25/2025 3:10 PM CHAIR AND COUCH MAKER Office Visit [facility] Gastroenterology [place] [address] [place] [address] Gary Burgess MD [address] [id number] [place] [address] 08/08/2025 10:30 AM CDT Office Visit [facility] Neurology [address] [address] [place] [address] Rama De La Paz MD [address] [facility] [address] [place] [address] documented as of this encounter Visit Diagnoses Not on filedocumented in this encounter Additional Health Concerns Infection Onset Date Last Indicated Resolved Time R/O C. diff 05/21/2020 05/21/2020 05/21/2020 1:01 PM CHAIR AND COUCH MAKER R/O C. diff 10/31/2021 10/30/2021 10/31/2021 3:51 PM CDT R/O C. diff 09/01/2022 08/31/2022 09/01/2022 5:17 PM CDT documented as of this encounter Care Teams Paratransit Operator Relationship Specialty Start Date End Date Porsha Garrido MD [address] [place] [address] PCP - General 03/04/09 documented as of this encounter
--- OUTSIDE RECORDS SUMMARY | 2024-09-06 11:02 | XMS_ITS | Encounter Summary ---
Author Organization [facility] Address [address] [place] [address] Care Team Providers Care Computer Analyst Supervisor Name Role Phone Porsha Garriod MD Primary Care Provider Encounter Details Date Type Department Care Team (Late st Contact Info) Description 11/23/2004 Outpatient Historical [facility] Pediatrics [place] [address] [facility] [place] [address] [place] [address] Deshawn Kitchen MD NO ADDRESS ON FILE Social History Tobacco Use Types Packs/Day Years Used Date Smoking Tobacco: Never Assessed Comments Unknown Sex and Gender Information Value Date Recorded Sex Assigned at Not on file Legal Sex Female 3:08 AM SCADA OPERATOR Gender Identity Not on file Sexual Orientation Not on file documented as of this encounter Plan of Treatment Upcoming Encounters Date Type Department Care Team (Late st Contact Info) Description 06/25/2025 3:10 PM SCADA OPERATOR Office Visit [facility] Gastroenterology [address] [place] [address] Gary Burgess MD [address] [id number] [place] [address] 08/08/2025 10:30 AM CDT Office Visit [facility] Neurology [address] [place] [address] Rama De La Paz MD [address] [facility] [address] [place] [address] documented as of this encounter Visit Diagnoses Not on filedocumented in this encounter Additional Health Concerns Infection Onset Date Last Indicated Resolved Time R/O C. diff 05/21/2020 05/21/2020 05/21/2020 1:01 PM SCADA OPERATOR R/O C. diff 10/31/2021 10/30/2021 10/31/2021 3:51 PM CDT R/O C. diff 09/01/2022 08/31/2022 09/01/2022 5:17 PM CDT documented as of this encounter Care Teams Computer Analyst Supervisor Relationship Specialty Start Date End Date Porsha Garrido MD [address] [place] [address] PCP - General 03/04/09 documented as of this encounter
--- OUTSIDE RECORDS SUMMARY | 2024-09-06 11:02 | XMS_ITS | Encounter Summary ---
Author Organization [facility] Address [address] [place] [address] Care Team Providers Care Technical Programs Manager Name Role Phone Porsha Garrido MD Primary Care Provider Encounter Details Date Type Department Care Team (Late st Contact Info) Description 12/12/2003 Outpatient Historical [facility] Pediatrics [facility] [place] [address] [facility] [place] [address] Deshawn Kitchen MD NO ADDRESS ON FILE Social History Tobacco Use Types Packs/Day Years Used Date Smoking Tobacco: Never Assessed Comments Unknown Sex and Gender Information Value Date Recorded Sex Assigned at Not on file Legal Sex Female 3:08 AM CAN STACKER Gender Identity Not on file Sexual Orientation [...] st Contact Info) Description 06/25/2025 3:10 PM CAN STACKER Office Visit [facility] Gastroenterology [place] [address] [place] [address] Gary Burgess MD [address] [id number] [place] [address] 08/08/2025 10:30 AM CDT Office Visit [facility] Neurology [facility] [address] [place] [address] Rama De La Paz MD [address] [place] [address] documented as of this encounter Visit Diagnoses Not on filedocumented in this encounter Additional Health Concerns Infection Onset Date Last Indicated Resolved Time R/O C. diff 05/21/2020 05/21/2020 05/21/2020 1:01 PM CAN STACKER R/O C. diff 10/31/2021 10/30/2021 10/31/2021 3:51 PM CDT R/O C. diff 09/01/2022 08/31/2022 09/01/2022 5:17 PM CDT documented as of this encounter Care Teams Technical Programs Manager Relationship Specialty Start Date End Date Porsha Garrido MD [address] [place] [address] [address] [place] [address] PCP - General 03/04/09 documented as of this encounter
--- OUTSIDE RECORDS SUMMARY | 2024-09-06 11:02 | XMS_ITS | Encounter Summary ---
Author Organization [facility] Address [address] [place] [address] Care Team Providers Care Rn Clinical Name Role Phone Porsha Garrido MD Primary Care Provider Encounter Details Date Type Department Care Team (Late st Contact Info) Description 07/31/2004 Outpatient Historical [facility] Pediatrics [place] [address] [facility] [place] [address] [place] [address] Deshawn Kitchen MD NO ADDRESS ON FILE Social History Tobacco Use Types Packs/Day Years Used Date Smoking Tobacco: Never Assessed Comments Unknown Sex and Gender Information Value Date Recorded Sex Assigned at Not on file Legal Sex Female 3:08 AM DIAMOND DIE MAKER Gender Identity Not on file Sexual Orientation Not on file documented as of this encounter Last Filed Vital Signs Vital Sign Reading Time Taken Comments Blood Pressure - - Pulse - - Temperature - - Respiratory Rate - - Oxygen Saturation - - Inhaled Oxygen Concentration - - Weight 48.3 kg (106 lb 6 oz) 07/31/2004 9:12 AM DIAMOND DIE MAKER Height 168.3 cm (5' 6.25 ) 07/31/2004 9:12 AM CS T Body Mass Index 17.04 07/31/2004 9:12 AM DIAMOND DIE MAKER Body Mass Index Percentile 3.83% 07/31/2004 9:1 2 AM DIAMOND DIE MAKER Growth Chart: CDC (Girls, 2- 20 Years) documented in this encounter Plan of Treatment Upcoming Encounters Date Type Department Care Team (Late st Contact Info) Description 06/25/2025 3:10 PM DIAMOND DIE MAKER Office Visit [facility] Gastroenterology [place] [address] [place] [address] Gary Burgess MD [address] [id number] [place] [address] 08/08/2025 10:30 AM CDT Office Visit [facility] Neurology [facility] [address] [place] [address] Rama De La Paz MD [address] [place] [address] documented as of this encounter Visit Diagnoses Not on filedocumented in this encounter Additional Health Concerns Infection Onset Date Last Indicated Resolved Time R/O C. diff 05/21/2020 05/21/2020 05/21/2020 1:01 PM DIAMOND DIE MAKER R/O C. diff 10/31/2021 10/30/2021 10/31/2021 3:51 PM CDT R/O C. diff 09/01/2022 08/31/2022 09/01/2022 5:17 PM CDT documented as of this encounter Care Teams Rn Clinical Relationship Specialty Start Date End Date Porsha Garrido MD [address] [place] [address] [address] [place] [address] PCP - General 03/04/09 documented as of this encounter
--- OUTSIDE RECORDS SUMMARY | 2024-09-06 11:02 | XMS_ITS | Encounter Summary ---
Author Organization [facility] Address [address] [place] [address] Care Team Providers Care Physician Compensation Analyst Name Role Phone Porsha Garrido MD Primary Care Provider Encounter Details Date Type Department Care Team (Late st Contact Info) Description 12/10/2003 Outpatient Historical [facility] Pediatrics [place] [address] [facility] [place] [address] Eduardo Mason MD NO ADDRESS ON FILE Social History Tobacco Use Types Packs/Day Years Used Date Smoking Tobacco: Never Assessed Comments Unknown Sex and Gender Information Value Date Recorded Sex Assigned at Not on file Legal Sex Female 3:08 AM GO GO DANCER Gender Identity Not on file Sexual Orientation Not on file documented as of this encounter Plan of Treatment Upcoming Encounters Date Type Department Care Team (Late st Contact Info) Description 06/25/2025 3:10 PM GO GO DANCER Office Visit [facility] Gastroenterology [place] [address] [place] [address] Gary Burgess MD [address] [id number] [place] [address] 08/08/2025 10:30 AM CDT Office Visit [facility] Neurology [address] [place] [address] Rama De La Paz MD [address] [facility] [address] [place] [address] documented as of this encounter Visit Diagnoses Not on filedocumented in this encounter Additional Health Concerns Infection Onset Date Last Indicated Resolved Time R/O C. diff 05/21/2020 05/21/2020 05/21/2020 1:01 PM GO GO DANCER R/O C. diff 10/31/2021 10/30/2021 10/31/2021 3:51 PM CDT R/O C. diff 09/01/2022 08/31/2022 09/01/2022 5:17 PM CDT documented as of this encounter Care Teams Physician Compensation Analyst Relationship Specialty Start Date End Date Porsha Garrido MD [address] [place] [address] [address] [place] [address] PCP - General 03/04/09 documented as of this encounter
--- OUTSIDE RECORDS SUMMARY | 2024-09-06 11:02 | XMS_ITS | Clinical Summary ---
Author Organization [facility] Address [address] [facility] [place] [address] Phone Care Team Providers Care County Director Name Role Phone Porsha Garrido MD Primary Care Provider Allergies Active Allergy Reactions Criticality Noted Date Comments Azithromycin Unknown Doxycycline Hcl Rash Low 02/11/2015 Sulfa (Sulfonamide Antibiotics) Other (See Comments),Rash Medium 02/04/2009 Unknown ask Medications valACYclovir 500 mg tablet Take 500 mg by mouth daily. Active cetirizine HCl (ZYRTEC ORAL) Take by mouth. A ctive fluticasone propionate (FLONASE) 50 mcg/spray [place], Suspension nasal inhaler Administer 2 Sprays in [...] Encounters Date Type Department Care Team Description 08/23/2024 Telephone [facility] Gastroenterology [facility] [address] [address] Urszula Oswald RN 10-days Late for Entyvio Infusion 08/13/2024 Abstract [facility] Gastroenterology [facility] [address] [place] [address] RichardsonKatie Violette 08/08/2024 11:00 AM CDT Office Visit [facility] Neurology [address] [facility] [place] [address] Rama De La Paz MD Intractable migraine with aura without status migrainosus (Primary Dx) 08/01/2024 External Device Data STL ABSTRACTION Provider, Abstract 08/01/2024 External Device Data STL ABSTRACTION Provider, Abstract 07/21/2024 External Device Data [place] ABSTRACTION Provider, Abstract 07/20/2024 External Device Data ST[place] ABSTRACTION Provider, Abstract 07/18/2024 External Device Data [place] ABSTRACTION Provider, Abstract 06/26/2024 2:40 PM ELECTRIFICATION ADVISER Office Visit [facility] Gastroenterology [address] [place] [address] Gary Burgess MD Ulcerative rectosigmoiditis without complication [...] on file Legal Sex Female 3:08 AM ELECTRIFICATION ADVISER Gender Identity Not on file Sexual Orientation [...] 88 kg (194 lb) 06/26/2024 2:35 PM ELECTRIFICATION ADVISER Height 172.7 cm (5' 8 ) 06/26/2024 2:35 PM ELECTRIFICATION ADVISER Body Mass Index 29.5 06/26/2024 2:35 PM ELECTRIFICATION ADVISER Plan of Treatment Upcoming Encounters Date Type Department Care Team (Late st Contact Info) Description 06/25/2025 3:10 PM ELECTRIFICATION ADVISER Office Visit [facility] Gastroenterology [address] [place] [address] Gary Burgess MD [address] [id number] [place] [address] 08/08/2025 10:30 AM CDT Office Visit [facility] Neurology [place] [address] [place] [address] Rama De La Paz MD [address] [place] [address] Health Maintenance Due Date Last Done Comments Pre-Diabetes and Diabetes Screening 1987 HPV/Cotest (21-29) 2008 CERVICAL CANCER SCREENING 2017 HPV/Cotest (30-65) 2017 PAP SMEAR 2017 COVID-19 Vaccine (2023- season) 2024 04/27/2022, 10/08/2021, 04/03/2021, Additional history exists DTAP/TDAP/TD VACCINES (5 - Td or Tdap) 02/14/2029 02/14/2019, 10/27/2011, 08/01/2002, Additional history exists HEPATITIS B VACCINES Completed 06/25/1998, 01/02/1998, 12/02/1997 INFLUENZA VACCINE Completed 02/25/2024, , 02/06/2022, Additional history exists HPV VACCINES Aged Out No longer eligi ble based on patient's age to complete this topic Insurance [facility] ACCESS HMO [facility] OA PLUS Advance Directives For more information, please contact: [phone] * Full Code (Latest Code Status on [...] 10:42 AM 02/06/2009 2:10 AM Care Teams County Director Relationship Specialty Start Date End Date Porsha Garrido MD [address] [place] [address] PCP - General 03/04/09
--- OUTSIDE RECORDS SUMMARY | 2024-09-06 11:02 | XMS_ITS | Encounter Summary ---
Author Organization [facility] Address [address] [place] [address] Care Team Providers Care Commissary Agent Name Role Phone Porsha Garrido MD Primary Care Provider [phone] Encounter Details Date Type Department Care Team (Late st Contact Info) Description 06/15/2002 Outpatient Historical [facility] Pediatrics [place] [address] [facility] [place] [address] Deshawn Kitchen MD NO ADDRESS ON FILE Social History Tobacco Use Types Packs/Day Years Used Date Smoking Tobacco: Never Assessed Comments Unknown Sex and Gender Information Value Date Recorded Sex Assigned at Not on file Legal Sex Female 3:08 AM ORTHOPEDIC RADIOLOGIC TECHNOLOGIST Gender Identity Not on file Sexual Orientation Not on file documented as of this encounter Plan of Treatment Upcoming Encounters Date Type Department Care Team (Late st Contact Info) Description 06/25/2025 3:10 PM ORTHOPEDIC RADIOLOGIC TECHNOLOGIST Office Visit [facility] Gastroenterology [address] [place] [address] Gary Burgess MD [address] [id number] [place] [address] 08/08/2025 10:30 AM CDT Office Visit [facility] Neurology [address] [place] [address] Rama De La Paz MD [address] [facility] [address] [place] [address] documented as of this encounter Visit Diagnoses Not on filedocumented in this encounter Additional Health Concerns Infection Onset Date Last Indicated Resolved Time R/O C. diff 05/21/2020 05/21/2020 05/21/2020 1:01 PM ORTHOPEDIC RADIOLOGIC TECHNOLOGIST R/O C. diff 10/31/2021 10/30/2021 10/31/2021 3:51 PM CDT R/O C. diff 09/01/2022 08/31/2022 09/01/2022 5:17 PM CDT documented as of this encounter Care Teams Commissary Agent Relationship Specialty Start Date End Date Porsha Garrido MD [address] [place] [address] PCP - General 03/04/09 documented as of this encounter
== END 2024-09-06 09:54 | disposition home or self-care (01) ==
LOC: ANHIMG 09:55
PROVIDERS: Visit Provider Surgery
DX: R10.11 Right upper quadrant pain (principal)
CPT/HCPCS: 78227; A9537; J2805

== ENCOUNTER 2024-09-11 07:57 | Outpatient (CLI) | payer OTHER, SELFPAY ==
--- OUTSIDE RECORDS SUMMARY | 2024-09-11 08:07 | XMS_ITS | Encounter Summary ---
Author Organization [facility] Address [address] [place] [address] Care Team Providers Care Cabinet Assembler Name Role Phone Porsha Garrido MD Primary Care Provider Encounter Details Date Type Department Care Team (Late st Contact Info) Description 03/27/1999 Outpatient Historical [facility] Pediatrics [place] [address] [facility] [place] [address] Ally Keller MD [address] [facility] [address] [place] [address] Social History Tobacco Use Types Packs/Day Years Used Date Smoking Tobacco: Never Assessed Comments Unknown Sex and Gender Information Value Date Recorded Sex Assigned at Not on file Legal Sex Female 3:08 AM BENZENE WORKER Gender Identity Not on file Sexual Orientation Not on file documented as of this encounter Plan of Treatment Upcoming Encounters Date Type Department Care Team (Latest Contact Info) Description 09/12/2024 12:00 PM CDT Hospital Encounter [facility] [address] [place] [address] Gary Burgess MD [address] [facility] [id number] [place] [address] Abdominal pain 09/12/2024 12:00 PM CDT - 09/12/2024 12:30 PM CDT [facility] [id number] [place] [address] [address] [place] [address] Gary Burgess MD [address] [id number] [place] [address] ESOPHAGOGASTRODUODENOSCOPY 06/25/2025 3:10 PM BENZENE WORKER Office Visit [facility] Gastroenterology [place] [address] [place] [address] Gary Burgess MD [address] [id number] [place] [address] 08/08/2025 10:30 AM CDT Office Visit [facility] Neurology [facility] [address] [place] [address] Rama De La Paz MD [address] [facility] [address] [place] [address] Scheduled Procedures Name Priority Associated Diagnoses Date/Ti me ESOPHAGOGASTRODUODENOSCOPY Abdominal pain 09/12/2024 12:00 PM CDT documented as of this encounter Visit Diagnoses Not on filedocumented in this encounter Additional Health Concerns Infection Onset Date Last Indicated Resolved Time R/O C. diff 05/21/2020 05/21/2020 05/21/2020 1:01 PM BENZENE WORKER R/O C. diff 10/31/2021 10/30/2021 10/31/2021 3:51 PM CDT R/O C. diff 09/01/2022 08/31/2022 09/01/2022 5:17 PM CDT documented as of this encounter Care Teams Cabinet Assembler Relationship Specialty Start Date End Date Porsha Garrido MD [address] [place] [address] [address] [place] [address] PCP - General 03/04/09 documented as of this encounter
--- OUTSIDE RECORDS SUMMARY | 2024-09-11 08:07 | XMS_ITS | Encounter Summary ---
Author Organization [facility] Address [address] [facility] [place] [address] Care Team Providers Care On Call Pharmacy Technician Name Role Phone Porsha Garrido MD Primary Care Provider [phone] Carina Rey MD Unavailable Unavailable Gary Burgess MD Unavailable [phone] Evelyn García RN Unavailable [phone] Porsha Garrido MD Unavailable Joselito Gold MD Unavailable [phone] Jolie Marrero PA-C Unavailable [phone] Porsha Garrido MD Unavailable Porsha Garrido MD Unavailable [phone] Joselito Casarez MD Unavailable Unavailable Michelle Nogueira APRN-NUMERICAL CONTROL MACHINE OPERATOR Unavailable [phone] Porsha Garrido MD Unavailable Paloma Romo Unavailable [phone] Marjorie Weston DO Unavailable Reason for Visit * Reason Onset Date Comments MEDICATION REFILL 12/05/2019 Encounter Details Date Type Department Care Team (Late st Contact Info) Description 12/05/2019 Refill [facility] - Family Medicine [address] [address] Porsha Garrido MD [address] [facility] [address] [place] [address] MEDICATION REFILL Social History Tobacco Use Types Packs/Day Years Used Date Smoking Tobacco: Never Smokeless Tobacco: Never Alcohol Use Standard Drinks/Week Comments Yes 0 (1 standard drink = 0.6 oz pur e alcohol) occasional Comments No Sex and Gender Information Value Date Recorded Sex Assigned at Not on file Legal Sex Female 12:18 PM FISHER Gender Identity Female 01/16/2019 9:49 AM CDT Sexual Orientation Not on file 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 Not on file [...] Description 10/05/2024 10:00 AM CDT Office Visit [facility] Breast [facility] - Surgery [address] [place] [phone] Satnam Nicole MD [address] [place] [phone] 10/12/2024 8:15 AM CDT Video Visit [facility] Medical [facility] - Family Medicine [address] [place] [address] Porsha Garrido MD [address] [place] [address] documented as of this encounter Visit Diagnoses Diagnosis JOHN (generalized anxiety disorder) Generalized anxiety disorder documented in this encounter Additional Health Concerns Infection Onset Date Last Indicated Resolved Time COVID-19 Under Investigation 04/01/2020 04/01/2020 04/02/2020 2:40 PM FISHER COVID-19 Confirmed 04/01/2020 04/01/2020 0 4:34 AM FISHER documented as of this encounter Care Teams On Call Pharmacy Technician Relationship Specialty Start Date End Date Porsha Garrido MD [address] [place] [address] PCP - General 01/31/11 Porsha Garrido MD [address] [place] [address] PCP - Attributed-[employer] 08/15/19 07/13/20 Jolie Marrero PA-C [address] [place] [phone] PCP - Attributed-[employer] 07/14/20 08/13/20 Porsha Garrido MD [address] [place] [address] [id number] PCP - Attributed-[employer] 08/14/20 12/29/21 Porsha Garrido MD [address] [place] [address] PCP - Attributed-[place] [employer] 05/16/22 08/31/22 Porsha Garrido MD [address] [place] [address] PCP - Attributed-[place] [employer] 11/13/22 07/31/24 Carina Rey MD [address] [place] [address] Obstetrics and Gynecology 10/27/11 07/14/20 Gary Burgess MD [address] [place] [address] [place] [address] Gastroenterology 08/22/13 Evelyn García, RN Form Setter/Driver 01/05/15 06/07/24 Joselito Gold MD [address] [place] [address] Obstetrics and Gynecology 07/15/20 5 Joselito Casarez MD [address] [facility] [address] [place] [address] Hematology and Oncology 09/03/22 05/26/23 Michelle Nogueira, BELT PUNCHER-NUMERICAL CONTROL MACHINE OPERATOR [address] [facility] [address] [place] [address] Nurse Practitioner Nurse Practitioner Adult Health 09/03/22 Paloma Romo Care Coordination Specialist Care Management 12/13/23 12/13/23 Marjorie Weston DO [address] [facility] [address] [place] [address] Rheumatology 05/31/24 documented as of this encounter
--- OUTSIDE RECORDS SUMMARY | 2024-09-11 08:07 | XMS_ITS | Encounter Summary ---
Author Organization [facility] Address [address] [place] [address] Care Team Providers Care Youth Services Librarian Name Role Phone Porsha Garrido MD Primary Care Provider Encounter Details Date Type Department Care Team (Late st Contact Info) Description 08/18/1998 Outpatient Historical [facility] Pediatrics [place] [address] [facility] [place] [address] [place] [address] Brayan Solitario MD [address] [address] Social History Tobacco Use Types Packs/Day Years Used Date Smoking Tobacco: Never Assessed Comments Unknown Sex and Gender Information Value Date Recorded Sex Assigned at Not on file Legal Sex Female 3:08 AM QUALITY REVIEW SPECIALIST Gender Identity Not on file Sexual Orientation Not on file documented as of this encounter Plan of Treatment Upcoming Encounters Date Type Department Care Team (Latest Contact Info) Description 09/12/2024 12:00 PM CDT Hospital Encounter [facility] [address] [place] [phone] Gary Burgess MD [address] [facility] [address] [id number] [place] [address] Abdominal pain 09/12/2024 12:00 PM CDT - 09/12/2024 12:30 PM CDT Surgery [facility] [address] [place] [phone] Gary Burgess MD [address] [id number] [place] [address] ESOPHAGOGASTRODUODENOSCOPY 06/25/2025 3:10 PM QUALITY REVIEW SPECIALIST Office Visit [facility] Gastroenterology [place] [address] [place] [address] Gary Burgess MD [address] [id number] [place] [address] 08/08/2025 10:30 AM CDT Office Visit [facility] Neurology [address] [place] [address] Rama De La Paz MD [address] [place] [address] Scheduled Procedures Name Priority Associated Diagnoses Date/Ti me ESOPHAGOGASTRODUODENOSCOPY Abdominal pain 09/12/2024 12:00 PM CDT documented as of this encounter Visit Diagnoses Not on filedocumented in this encounter Additional Health Concerns Infection Onset Date Last Indicated Resolved Time R/O C. diff 05/21/2020 05/21/2020 05/21/2020 1:01 PM QUALITY REVIEW SPECIALIST R/O C. diff 10/31/2021 10/30/2021 10/31/2021 3:5 1 PM CDT R/O C. diff 09/01/2022 08/31/2022 09/01/2022 5:17 PM CDT documented as of this encounter Care Teams Youth Services Librarian Relationship Specialty Start Date End Date Porsha Garrido MD [address] [place] [address] [address] [place] [address] PCP - General 03/04/09 documented as of this encounter
--- OUTSIDE RECORDS SUMMARY | 2024-09-11 08:07 | XMS_ITS | Encounter Summary ---
Author Organization [facility] Address [address] [facility] [place] [address] Care Team Providers Care Svp Name Role Phone Porsha Garrido MD Primary Care Provider Carina Rey MD Unavailable Unavailable Gary Burgess MD Unavailable [phone] Evelyn García RN Unavailable [phone] Porsha Garrido MD Unavailable [phone] Joselito Gold MD Unavailable [phone] Porsha Garrido MD Unavailable [phone] Joselito Gold MD Unavailable [phone] Jolie Marrero PA-C Unavailable [phone] Porsha Garrido MD Unavailable [phone] Porsha Garrido MD Unavailable [phone] Joselito Casarez MD Unavailable Unavailable Michelle Nogueira MANAGER OF FINANCIAL PLANNING-AIR POLLUTION ANALYST Unavailable [phone] Porsha Garrido MD Unavailable [phone] Paloma Romo Unavailable Marjorie Weston DO Unavailable Porsha Garrido MD Unavailable [phone] Encounter Details Date Type Department Care Team [...] on file Legal Sex Female 12:18 PM PREFORM PLATE MAKER Gender Identity Female 01/16/2019 9:49 AM CDT Sexual Orientation Not on file 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 on file Not on file Not on f ile documented as of this encounter Plan of Treatment Upcoming Encounters Date Type Department Care Team (Late Contact Info) Description 10/05/2024 10:00 AM CDT Office Visit [facility] Breast Care - Surgery [address] [place] [phone] Satnam Nicole MD [address] [place] [address] 10/12/2024 8:15 AM CDT Video Visit [facility] Medical Group - Family Medicine [address] [place] [address] Porsha Garrido MD [address] [place] [address] documented as of this encounter Visit Diagnoses Not on filedocumented in this encounter Additional Health Concerns Infection Onset Date Last Indicated Resolved Time COVID-19 Under Investigation 04/01/2020 04/01/2020 04/02/2020 2:40 PM PREFORM PLATE MAKER COVID-19 Confirmed 04/01/2020 04/01/2020 0 4:34 AM PREFORM PLATE MAKER documented as of this encounter Care Teams Svp Relationship Specialty Start Date End Date Porsha Garrido MD [address] [place] [address] PCP - General 01/31/11 Porsha Garrido MD [address] [place] [address] PCP - Attributed-[employer] Commercial 09/13/18 11/01/19 Joselito Gold MD [address] [place] [address] PCP - Attributed-[employer] 07/15/19 08/14/19 Porsha Garrido MD [address] [place] [address] PCP - Attributed-Cign[employer] 08/15/19 07/13/20 Jolie Marrero PA-C [address] [place] [phone] PCP - Attributed-C[employer] 07/14/20 08/13/20 Porsha Garrido MD [address] [place] [address] PCP - Attributed-Cigna 08/14/20 12/29/21 Porsha Garrido MD [address] [place] [address] PCP - Attributed-[employer] Commercial 05/16/22 08/31/22 Porsha Garrido MD [address] [place] [address] [address] [place] [address] PCP - Attributed-[employer] Commercial 11/13/22 07/31/24 Porsha Garrido MD [address] [place] [address] [address] [place] [address] PCP - Attributed-Exclusive Choice 10/29/16 09/14/17 Carina Rey MD [address] [place] [address] [address] [place] [address] Obstetrics and Gynecology 10/27/11 07/14/20 Gary Burgess MD [address] [place] [address] [address] [place] [address] Gastroenterology 08/22/13 Evelyn aGrcía RN Program Director Air Talent 01/05/15 06/07/24 Joselito Gold MD [address] [place] [address] Obstetrics and Gynecology 07/15/20 5 Joselito Casarez MD [address] [place] [address] [address] [place] [address] Hematology and Oncology 09/03/22 05/26/23 Michelle Nogueira, MANAGER OF FINANCIAL PLANNING-AIR POLLUTION ANALYST [address] [place] [address] [address] [place] [address] Nurse Practitioner Nurse Practitioner Adult Health 09/03/22 Paloma Romo Care Coordination Specialist Care Management 12/13/23 12/13/23 Marjorie Weston DO [address] [place] [address] [address] [place] [address] Rheumatology 05/31/24 documented as of this encounter
--- OUTSIDE RECORDS SUMMARY | 2024-09-11 08:07 | XMS_ITS | Encounter Summary ---
Author Organization [facility] Address [address] [place] [address] Care Team Providers Care Supervisor Rides Name Role Phone Porsha Garrido MD Primary Care Provider Encounter Details Date Type Department Care Team (Late st Contact Info) Description 04/03/2001 Outpatient Historical [facility] Pediatrics [place] [address] [facility] [place] [address] [place] [address] Deshawn Kitchen MD NO ADDRESS ON FILE Social History Tobacco Use Types Packs/Day Years Used Date Smoking Tobacco: Never Assessed Comments Unknown Sex and Gender Information Value Date Recorded Sex Assigned at Not on file Legal Sex Female 3:08 AM MEDICAL TRANSCRIPTION Gender Identity Not on file Sexual Orientation Not on file documented as of this encounter Plan of Treatment Upcoming Encounters Date Type Department Care Team (Latest Contact Info) Description 09/12/2024 12:00 PM CDT Hospital Encounter [facility] [id number] [place] [address] [address] [place] [address] Gary Burgess MD [address] [facility] [address] [id number] [place] [address] Abdominal pain 09/12/2024 12:00 PM CDT - 09/12/2024 12:30 PM CDT Surgery [facility] [address] [place] [phone] Gray Burgess MD [address] [id number] [place] [phone] ESOPHAGOGASTRODUODENOSCOPY 06/25/2025 3:10 PM MEDICAL TRANSCRIPTION Office Visit [facility] Gastroenterology [address] [place] [address] Gary Burgess MD [address] [id number] [place] [address] 08/08/2025 10:30 AM CDT Office Visit [facility] Neurology [address] [place] [address] Rama De La Paz MD [address] [place] [address] Scheduled Procedures Name Priority Associated Diagnoses Date/Ti me ESOPHAGOGASTRODUODENOSCOPY Abdominal pain 09/12/2024 12:00 PM CDT documented as of this encounter Visit Diagnoses Not on filedocumented in this encounter Additional Health Concerns Infection Onset Date Last Indicated Resolved Time R/O C. diff 05/21/2020 05/21/2020 05/21/2020 1:01 PM MEDICAL TRANSCRIPTION R/O C. diff 10/31/2021 10/30/2021 10/31/2021 3:51 PM CDT R/O C. diff 09/01/2022 08/31/2022 09/01/2022 5:17 PM CDT documented as of this encounter Care Teams Supervisor Rides Relationship Specialty Start Date End Date Porsha Garrido MD [address] [place] [address] PCP - General 03/04/09 documented as of this encounter
--- OUTSIDE RECORDS SUMMARY | 2024-09-11 08:07 | XMS_ITS | Encounter Summary ---
Author Organization [facility] Address [address] [facility] [place] [address] Care Team Providers Care Bulb Tester Name Role Phone Porsha Garrido MD Primary Care Provider Carina Rey MD Unavailable Unavailable Gary Burgess MD Unavailable [phone] Evelyn García RN Unavailable [phone] Porsha Garrido MD Unavailable [phone] Joselito Gold MD Unavailable [phone] Porsha Garrido MD Unavailable [phone] Joselito Gold MD Unavailable [phone] Jolie Marrero PA-C Unavailable [phone] Porsha Garrido MD Unavailable [phone] Porsha Garrido MD Unavailable [phone] Joselito Casarez MD Unavailable Unavailable Michelle Nogueira GRAIN ELEVATOR MOTOR STARTER-SILICA FILTER OPERATOR Unavailable [phone] Porsha Garrido MD Unavailable Paloma Rmoo Unavailable Marjorie Weston DO Unavailable Porsha Garrido MD Unavailable Encounter Details Date Type Department Care Team (Late Contact Info) Description 10/11/2014 [facility] Outpatient Visit [facility] Orthopedics - Radiology [address] [place] [address] Meir Luo DO [address] [place] [address] Social History Tobacco Use Types Packs/Day Years Used Date Smoking Tobacco: Never Smokeless Tobacco: Never Alcohol Use Standard Drinks/Week Comments Yes 0 (1 standard drink = 0.6 oz pur e alcohol) occasionally Comments No Sex and Gender Information Value Date Recorded Sex Assigned at Not on file Legal Sex Female 12:18 PM VISUAL COMMUNICATIONS INSTRUCTOR Gender Identity Female 01/16/2019 9:49 AM CDT Sexual Orientation Not on file 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 on file Not on f ile documented as of this encounter Plan of Treatment Upcoming Encounters Date Type Department Care Team (Late st Contact Info) Description 10/05/2024 10:00 AM CDT Office Visit [facility] Breast Care - Surgery [address] [place] [phone] Satnam Nicole MD [address] [place] [address] 10/12/2024 8:15 AM CDT Video Visit [facility] Medical Group - Family Medicine [address] [place] [phone] Porsha Garrido MD [address] [place] [address] documented as of this encounter Visit Diagnoses Not on filedocumented in this encounter Additional Health Concerns Infection Onset Date Last Indicated Resolved Time COVID-19 Under Investigation 04/01/2020 04/01/2020 04/02/2020 2:40 PM VISUAL COMMUNICATIONS INSTRUCTOR COVID-19 Confirmed 04/01/2020 04/01/2020 0 4:34 AM VISUAL COMMUNICATIONS INSTRUCTOR documented as of this encounter Care Teams Bulb Tester Relationship Specialty Start Date End Date Porsha Garrido MD [address] [place] [address] PCP - General 01/31/11 Porsha Garrido MD [address] [place] [address] PCP - Attributed-[employer] Commercial 09/13/18 11/01/19 Joselito Gold MD [address] [place] [address] PCP - Attributed-Cigna 07/15/19 08/14/19 Porsha Garrido MD [address] [place] [address] PCP - Attributed-Cigna 08/15/19 07/13/20 Jolie Marrero PA-C [address] [place] [phone] PCP - Attributed-Cign[employer] 07/14/20 08/13/20 Porsha Garrido MD [address] [place] [address] PCP - Attributed-Cigna 08/14/20 12/29/21 Porsha Garrido MD [address] [place] [address] [place] [address] PCP - Attributed-[employer] Commercial 05/16/22 08/31/22 Porsha Garrido MD [address] [place] [address] [place] [address] PCP - Attributed-[employer] Commercial 11/13/22 07/31/24 Porsha Garrido MD [address] [place] [address] [place] [address] PCP - Attributed-Exclusive Choice 10/29/16 09/14/17 Carina Rey MD [address] [place] [address] [place] [address] Obstetrics and Gynecology 10/27/11 07/14/20 Gary Burgess MD [address] [place] [address] [address] [place] [address] Gastroenterology 08/22/13 Evelyn García, RN Human Resources Talent Manager 01/05/15 06/07/24 Joselito Gold MD [address] [place] [address] Obstetrics and Gynecology 07/15/20 5 Joselito Casarez MD [address] [place] [address] [address] [place] [address] Hematology and Oncology 09/03/22 05/26/23 Michelle Nogueira APRN-SILICA FILTER OPERATOR [address] [place] [address] [address] [place] [address] Nurse Practitioner Nurse Practitioner Adult Health 09/03/22 Paloma Romo Care Coordination Specialist Care Management 12/13/23 12/13/23 Marjorie Weston DO [address] [address] Rheumatology 05/31/24 documented as of this encounter
--- OUTSIDE RECORDS SUMMARY | 2024-09-11 08:07 | XMS_ITS | Encounter Summary ---
Author Organization [facility] Address [address] [place] [address] Care Team Providers Care Typewriters Functional Tester Name Role Phone Porsha Garrido MD Primary Care Provider Encounter Details Date Type Department Care Team (Late st Contact Info) Description 01/02/1998 Outpatient Historical [facility] Pediatrics [place] [address] [facility] [place] [address] [place] [address] Deshawn Kitchen MD NO ADDRESS ON FILE Social History Tobacco Use Types Packs/Day Years Used Date Smoking Tobacco: Never Assessed Comments Unknown Sex and Gender Information Value Date Recorded Sex Assigned at Not on file Legal Sex Female 3:08 AM TALENT RECRUITER Gender Identity Not on file Sexual Orientation Not on file documented as of this encounter Plan of Treatment Upcoming Encounters Date Type Department Care Team (Latest Contact Info) Description 09/12/2024 12:00 PM CDT Hospital Encounter [facility] [address] [place] [address] [address] [place] [address] Gary Burgess MD [address] [facility] [address] [id number] [place] [address] Abdominal pain 09/12/2024 12:00 PM CDT - 09/12/2024 12:30 PM CDT Surgery [facility] [address] [place] [phone] Gary Burgess MD [address] [id number] [place] [phone] ESOPHAGOGASTRODUODENOSCOPY 06/25/2025 3:10 PM TALENT RECRUITER Office Visit [facility] Gastroenterology [address] [place] [address] Gary Burgess MD [address] [id number] [place] [address] 08/08/2025 10:30 AM CDT Office Visit [facility] Neurology [address] [place] [address] Rama De La Paz MD [address] [place] [address] Scheduled Procedures Name Priority Associated Diagnoses Date/Ti me ESOPHAGOGASTRODUODENOSCOPY Abdominal pain 09/12/2024 12:00 PM CDT documented as of this encounter Visit Diagnoses Not on filedocumented in this encounter Additional Health Concerns Infection Onset Date Last Indicated Resolved Time R/O C. diff 05/21/2020 05/21/2020 05/21/2020 1:01 PM TALENT RECRUITER R/O C. diff 10/31/2021 10/30/2021 10/31/2021 3:51 PM CDT R/O C. diff 09/01/2022 08/31/2022 09/01/2022 5:17 PM CDT documented as of this encounter Care Teams Typewriters Functional Tester Relationship Specialty Start Date End Date Porsha Garrido MD [address] [place] [address] PCP - General 03/04/09 documented as of this encounter
--- OUTSIDE RECORDS SUMMARY | 2024-09-11 08:07 | XMS_ITS | Encounter Summary ---
Author Organization [facility] Address [address] [place] [address] Care Team Providers Care Skid Worker Name Role Phone Porsha Garrido MD Primary Care Provider Encounter Details Date Type Department Care Team (Late st Contact Info) Description 06/23/1999 Outpatient Historical [facility] Pediatrics [place] [address] [facility] [place] [address] [place] [address] Deshawn Kitchen MD NO ADDRESS ON FILE Social History Tobacco Use Types Packs/Day Years Used Date Smoking Tobacco: Never Assessed Comments Unknown Sex and Gender Information Value Date Recorded Sex Assigned at Not on file Legal Sex Female 3:08 AM PARKS RECREATION COORDINATOR Gender Identity Not on file Sexual Orientation Not on file documented as of this encounter Plan of Treatment Upcoming Encounters Date Type Department Care Team (Latest Contact Info) Description 09/12/2024 12:00 PM CDT Hospital Encounter [facility] Endoscopy [facility] [id number] [place] [address] [address] [place] [address] Gary Burgess MD [address] [facility] [address] [id number] [place] [address] Abdominal pain 09/12/2024 12:00 PM CDT - 09/12/2024 12:30 PM CDT Surgery [facility] Endoscopy Center [facility] [address] [place] [phone] Gary Burgess MD [address] [id number] [place] [address] ESOPHAGOGASTRODUODENOSCOPY 06/25/2025 3:10 PM PARKS RECREATION COORDINATOR Office Visit [facility] Gastroenterology [address] [place] [address] Gary Burgess MD [address] [id number] [place] [address] 08/08/2025 10:30 AM CDT Office Visit [facility] Neurology [address] [place] [address] Rama De La Paz MD [address] [place] [address] Scheduled Procedures Name Priority Associated Diagnoses Date/Ti me ESOPHAGOGASTRODUODENOSCOPY Abdominal pain 09/12/2024 12:00 PM CDT documented as of this encounter Visit Diagnoses Not on filedocumented in this encounter Additional Health Concerns Infection Onset Date Last Indicated Resolved Time R/O C. diff 05/21/2020 05/21/2020 05/21/2020 1:01 PM PARKS RECREATION COORDINATOR R/O C. diff 10/31/2021 10/30/2021 10/31/2021 3:51 PM CDT R/O C. diff 09/01/2022 08/31/2022 09/01/2022 5:17 PM CDT documented as of this encounter Care Teams Skid Worker Relationship Specialty Start Date End Date Porsha Garrido MD [address] [place] [address] PCP - General 03/04/09 documented as of this encounter
--- OUTSIDE RECORDS SUMMARY | 2024-09-11 08:07 | XMS_ITS | Encounter Summary ---
Author Organization [facility] Address [address] [place] [address] Care Team Providers Care Services Delivery Driver Name Role Phone Porsha Garrido MD Primary Care Provider [phone] Encounter Details Date Type Department Care Team (Late st Contact Info) Description 04/16/1998 Outpatient Historical [facility] Pediatrics [place] [address] [facility] [place] [address] [place] [address] Deshawn Kitchen MD NO ADDRESS ON FILE Social History Tobacco Use Types Packs/Day Years Used Date Smoking Tobacco: Never Assessed Comments Unknown Sex and Gender Information Value Date Recorded Sex Assigned at Not on file Legal Sex Female 3:08 AM CARBIDE TOOL MAKER Gender Identity Not on file Sexual Orientation Not on file documented as of this encounter Plan of Treatment Upcoming Encounters Date Type Department Care Team (Latest Contact Info) Description 09/12/2024 12:00 PM CDT Hospital Encounter [facility] Endoscopy [facility] [address] [place] [address] [address] [place] [address] Gary Burgess MD [address] [facility] [address] [id number] [place] [address] Abdominal pain 09/12/2024 12:00 PM CDT - 09/12/2024 12:30 PM CDT Surgery [facility] Endoscopy Center [facility] [address] [place] [phone] Gary Burgess MD [address] [id number] [place] [address] ESOPHAGOGASTRODUODENOSCOPY 06/25/2025 3:10 PM CARBIDE TOOL MAKER Office Visit [facility] [address] [place] [address] Gary Burgess MD [address] [id number] [place] [address] 08/08/2025 10:30 AM CDT Office Visit [facility] Neurology [address] [place] [address] Rama De La Paz MD [address] [place] [address] Scheduled Procedures Name Priority Associated Diagnoses Date/Ti me ESOPHAGOGASTRODUODENOSCOPY Abdominal pain 09/12/2024 12:00 PM CDT documented as of this encounter Visit Diagnoses Not on filedocumented in this encounter Additional Health Concerns Infection Onset Date Last Indicated Resolved Time R/O C. diff 05/21/2020 05/21/2020 05/21/2020 1:01 PM CARBIDE TOOL MAKER R/O C. diff 10/31/2021 10/30/2021 10/31/2021 3:51 PM CDT R/O C. diff 09/01/2022 08/31/2022 09/01/2022 5:17 PM CDT documented as of this encounter Care Teams Services Delivery Driver Relationship Specialty Start Date End Date Porsha Garrido MD [address] [place] [address] PCP - General 03/04/09 documented as of this encounter
--- OUTSIDE RECORDS SUMMARY | 2024-09-11 08:07 | XMS_ITS | Encounter Summary ---
Author Organization [facility] Address [address] [place] [address] Care Team Providers Care Bed Control Specialist Name Role Phone Porsha Garrido MD Primary Care Provider Encounter Details Date Type Department Care Team (Late st Contact Info) Description 08/15/2001 Outpatient Historical [facility] [place] [address] [facility] [place] [address] [place] [address] Dsehawn Kitchen MD NO ADDRESS ON FILE Social History Tobacco Use Types Packs/Day Years Used Date Smoking Tobacco: Never Assessed Comments Unknown Sex and Gender Information Value Date Recorded Sex Assigned at Not on file Legal Sex Female 3:08 AM INTERNATIONAL ACCOUNTING MANAGER Gender Identity Not on file Sexual Orientation Not on file documented as of this encounter Plan of Treatment Upcoming Encounters Date Type Department Care Team (Latest Contact Info) Description 09/12/2024 12:00 PM CDT Hospital Encounter [facility] Endoscopy [facility] [address] [place] [address] [address] [place] [address] Gary Burgess MD [address] [facility] [address] [id number] [place] [address] Abdominal pain 09/12/2024 12:00 PM CDT - 09/12/2024 12:30 PM CDT Surgery [facility] [address] [place] [address] Gary Burgess MD [address] [id number] [place] [address] ESOPHAGOGASTRODUODENOSCOPY 06/25/2025 3:10 PM INTERNATIONAL ACCOUNTING MANAGER Office Visit [facility] G[facility]enterology [place] [address] [place] [address] Gary Burgess MD [address] [id number] [place] [address] 08/08/2025 10:30 AM CDT Office Visit [facility] Neurology [address] [place] [address] Rama De La Paz MD [address] [place] [address] Scheduled Procedures Name Priority Associated Diagnoses Date/Ti me ESOPHAGOGASTRODUODENOSCOPY Abdominal pain 09/12/2024 12:00 PM CDT documented as of this encounter Visit Diagnoses Not on filedocumented in this encounter Additional Health Concerns Infection Onset Date Last Indicated Resolved Time R/O C. diff 05/21/2020 05/21/2020 05/21/2020 1:01 PM INTERNATIONAL ACCOUNTING MANAGER R/O C. diff 10/31/2021 10/30/2021 10/31/2021 3:51 PM CDT R/O C. diff 09/01/2022 08/31/2022 09/01/2022 5:17 PM CDT documented as of this encounter Care Teams Bed Control Specialist Relationship Specialty Start Date End Date Porsha Garrido MD [address] [place] [address] PCP - General 03/04/09 documented as of this encounter
--- OUTSIDE RECORDS SUMMARY | 2024-09-11 08:07 | XMS_ITS | Encounter Summary ---
Author Organization [facility] Address [address] [place] [address] Care Team Providers Care Trailer Tank Truck Driver Name Role Phone Porsha Garrido MD Primary Care Provider Encounter Details Date Type Department Care Team (Late st Contact Info) Description 12/02/1997 Outpatient Historical [facility] [place] [address] [facility] [place] [address] Deshawn Kitchen MD NO ADDRESS ON FILE Social History Tobacco Use Types Packs/Day Years Used Date Smoking Tobacco: Never Assessed Comments Unknown Sex and Gender Information Value Date Recorded Sex Assigned at Not on file Legal Sex Female 3:08 AM MILL WASHER Gender Identity Not on file Sexual Orientation Not on file documented as of this encounter Plan of Treatment Upcoming Encounters Date Type Department Care Team (Latest Contact Info) Description 09/12/2024 12:00 PM CDT Hospital Encounter [facility] [address] [place] [address] [address] [place] [address] Gary Burgess MD [address] [facility] [address] [id number] [place] [address] Abdominal pain 09/12/2024 12:00 PM CDT - 09/12/2024 12:30 PM CDT Surgery [facility] [address] [place] [address] Gary Burgess MD [address] [id number] [place] [address] ESOPHAGOGASTRODUODENOSCOPY 06/25/2025 3:10 PM MILL WASHER Office Visit [facility] Gastroenterology [place] [address] [place] [address] Gary Burgess MD [address] [id number] [place] [address] 08/08/2025 10:30 AM CDT Office Visit [facility] Neurology [address] [place] [address] Rama De La Paz MD [address] [place] [address] Scheduled Procedures Name Priority Associated Diagnoses Date/Ti me ESOPHAGOGASTRODUODENOSCOPY Abdominal pain 09/12/2024 12:00 PM CDT documented as of this encounter Visit Diagnoses Not on filedocumented in this encounter Additional Health Concerns Infection Onset Date Last Indicated Resolved Time R/O C. diff 05/21/2020 05/21/2020 05/21/2020 1:01 PM MILL WASHER R/O C. diff 10/31/2021 10/30/2021 10/31/2021 3:51 PM CDT R/O C. diff 09/01/2022 08/31/2022 09/01/2022 5:17 PM CDT documented as of this encounter Care Teams Trailer Tank Truck Driver Relationship Specialty Start Date End Date Porsha Garrido MD [address] [place] [address] PCP - General 03/04/09 documented as of this encounter
--- OUTSIDE RECORDS SUMMARY | 2024-09-11 08:07 | XMS_ITS | Encounter Summary ---
Author Organization [facility] Address [address] [place] [address] Care Team Providers Care Auto Damage Trainee Name Role Phone Porsha Garrido MD Primary Care Provider Encounter Details Date Type Department Care Team (Late st Contact Info) Description 05/14/2000 Outpatient Historical [facility] [place] [address] [facility] [place] [address] [place] [address] Deshawn Kitchen MD NO ADDRESS ON FILE Social History Tobacco Use Types Packs/Day Years Used Date Smoking Tobacco: Never Assessed Comments Unknown Sex and Gender Information Value Date Recorded Sex Assigned at Not on file Legal Sex Female 3:08 AM DEVELOPMENT REP Gender Identity Not on file Sexual Orientation Not on file documented as of this encounter Plan of Treatment Upcoming Encounters Date Type Department Care Team (Latest Contact Info) Description 09/12/2024 12:00 PM CDT Hospital Encounter [facility] [address] [place] [address] [address] [place] [address] Gary Burgess MD [address] [facility] [address] [id number] [place] [address] Abdominal pain 09/12/2024 12:00 PM CDT - 09/12/2024 12:30 PM CDT Surgery [facility] [address] [place] [address] Gary Burgess MD [address] [id number] [place] [address] ESOPHAGOGASTRODUODENOSCOPY 06/25/2025 3:10 PM DEVELOPMENT REP Office Visit [facility] Gastroenterology [place] [address] [place] [address] Gary Burgess MD [address] [id number] [place] [address] 08/08/2025 10:30 AM CDT Office Visit [facility] Neurology [address] [place] [address] Rama De La Paz MD [address] [place] [address] Scheduled Procedures Name Priority Associated Diagnoses Date/Ti me ESOPHAGOGASTRODUODENOSCOPY Abdominal pain 09/12/2024 12:00 PM CDT documented as of this encounter Visit Diagnoses Not on filedocumented in this encounter Additional Health Concerns Infection Onset Date Last Indicated Resolved Time R/O C. diff 05/21/2020 05/21/2020 05/21/2020 1:01 PM DEVELOPMENT REP R/O C. diff 10/31/2021 10/30/2021 10/31/2021 3:51 PM CDT R/O C. diff 09/01/2022 08/31/2022 09/01/2022 5:17 PM CDT documented as of this encounter Care Teams Auto Damage Trainee Relationship Specialty Start Date End Date Porsha Garrido MD [address] [place] [address] PCP - General 03/04/09 documented as of this encounter
--- OUTSIDE RECORDS SUMMARY | 2024-09-11 08:07 | XMS_ITS | Encounter Summary ---
Author Organization [facility] Address [address] [facility] [place] [address] Care Team Providers Care Skidder Operator Name Role Phone Porsha Garrido MD Primary Care Provider Carina Rey MD Unavailable Unavailable Gary Burgess MD Unavailable [phone] Evelyn García RN Unavailable [phone] Porsha Garrido MD Unavailable [phone] Joselito Gold MD Unavailable [phone] Porsha Garrido MD Unavailable [phone] Joselito Gold MD Unavailable [phone] Jolie Marrero PA-C Unavailable [phone] Porsha Garrido MD Unavailable [phone] Porsha Garrido MD Unavailable [phone] Joselito Casarez MD Unavailable Unavailable Michelle Nogueira POSITION CLASSIFIER-HALF SOLE FITTER Unavailable [phone] Porsha Garrido MD Unavailable [phone] Paloma Romo Unavailable Marjorie Weston DO Unavailable Porsha Garrido MD Unavailable Encounter Details Date Type Department Care Team (Late st Contact Info) Description 08/26/2016 [facility] Outpatient Visit [facility] REHAB [address] [facility] [address] [address] Document, Scanned Social History Tobacco Use Types Packs/Day Years Used Date Smoking Tobacco: Never Smokeless Tobacco: Never Alcohol Use Standard Drinks/Week Comments No 0 (1 standard drink = 0.6 oz pur e alcohol) Comments No Sex and Gender Information Value Date Recorded Sex Assigned at Not on file Legal Sex Female 12:18 PM AIRPORT CLERK Gender Identity Female 01/16/2019 9:49 AM CDT Sexual Orientation Not on file 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 Not on file [...] Description 10/05/2024 10:00 AM CDT Office Visit [facility] Breast Care - Surgery [address] [place] [address] Satnam Nicole MD [address] [facility] [address] [place] [address] 10/12/2024 8:15 AM CDT Video Visit [facility] - Family Medicine [address] [place] [address] [id number] Porsha Garrido MD [address] [place] [address] documented as of this encounter Visit Diagnoses Not on filedocumented in this encounter Additional Health Concerns Infection Onset Date Last Indicated Resolved Time COVID-19 Under Investigation 04/01/2020 04/01/2020 04/02/2020 2:40 PM AIRPORT CLERK COVID-19 Confirmed 04/01/2020 04/01/2020 0 4:34 AM AIRPORT CLERK documented as of this encounter Care Teams Skidder Operator Relationship Specialty Start Date End Date Porsha Garrido MD [address] [place] [address] PCP - General 01/31/11 Porsha Garrido MD [address] [place] [address] PCP - Attributed-C Commercial 09/13/18 11/01/19 Joselito Gold MD [address] [place] [address] PCP - Attributed-[employer] 07/15/19 08/14/19 Porsha Garrido MD [address] [place] [address] PCP - Attributed-[employer] 08/15/19 07/13/20 Jolie Marrero PA-C [address] [place] [address] [place] [phone] PCP - Attributed-[employer] 07/14/20 08/13/20 Porsha Garrido MD [address] [place] [address] PCP - Attributed-[employer] 08/14/20 12/29/21 Porsha Garrido MD [address] [place] [address] PCP - Attributed-[place] Commercial 05/16/22 08/31/22 Porsha Garrido MD [address] [place] [address] PCP - Attributed-[place] Commercial 11/13/22 07/31/24 Porsha Garrido MD [address] [place] [address] PCP - Attributed-[employer] 10/29/16 09/14/17 Carina Rey MD [address] [place] [address] Obstetrics and Gynecology 10/27/11 07/14/20 Gary Burgess MD [address] [place] [address] Gastroenterology 08/22/13 Evelyn García RN Patternmaker Grader 01/05/15 06/07/24 Joselito Gold MD [address] [place] [address] Obstetrics and Gynecology 07/15/20 5 Joselito Casarez MD [address] [facility] [address] [place] [address] Hematology and Oncology 09/03/22 05/26/23 Michelle Nogueira, POSITION CLASSIFIER-HALF SOLE FITTER [address] [facility] [address] [place] [address] Nurse Practitioner Nurse Practitioner Adult Health 09/03/22 Paloma Romo Care Coordination Specialist Care Management 12/13/23 12/13/23 Marjorie Weston DO [address] [facility] [address] [place] [address] Rheumatology 05/31/24 documented as of this encounter
--- OUTSIDE RECORDS SUMMARY | 2024-09-11 08:07 | XMS_ITS | Encounter Summary ---
Author Organization [facility] Address [address] [place] [address] Care Team Providers Care Nursing Home Director Name Role Phone Porsha Garrido MD Primary Care Provider Encounter Details Date Type Department Care Team (Late st Contact Info) Description 02/16/1999 Outpatient Historical [facility] Pediatrics [place] [address] [facility] [place] [address] Deshawn Kitchen MD NO ADDRESS ON FILE Social History Tobacco Use Types Packs/Day Years Used Date Smoking Tobacco: Never Assessed Comments Unknown Sex and Gender Information Value Date Recorded Sex Assigned at Not on file Legal Sex Female 3:08 AM FILM SOUND COORDINATOR Gender Identity Not on file Sexual Orientation Not on file documented as of this encounter Plan of Treatment Upcoming Encounters Date Type Department Care Team (Latest Contact Info) Description 09/12/2024 12:00 PM CDT Hospital Encounter [facility] Endoscopy [facility] [address] [place] [address] [address] [place] [address] Gary Burgess MD [address] [facility] [address] [id number] [place] [address] Abdominal pain 09/12/2024 12:00 PM CDT - 09/12/2024 12:30 PM CDT Surgery [facility] Endoscopy Center [facility] [address] [place] [address] Gary Burgess MD [address] [id number] [place] [address] ESOPHAGOGASTRODUODENOSCOPY 06/25/2025 3:10 PM FILM SOUND COORDINATOR Office Visit [facility] Gastroenterology [place] [address] [place] [address] Gary Burgess MD [address] [id number] [place] [address] 08/08/2025 10:30 AM CDT Office Visit [facility] Neurology [address] [place] [address] Rama De La Paz MD [address] [place] [address] Scheduled Procedures Name Priority Associated Diagnoses Date/Ti me ESOPHAGOGASTRODUODENOSCOPY Abdominal pain 09/12/2024 12:00 PM CDT documented as of this encounter Visit Diagnoses Not on filedocumented in this encounter Additional Health Concerns Infection Onset Date Last Indicated Resolved Time R/O C. diff 05/21/2020 05/21/2020 05/21/2020 1:01 PM FILM SOUND COORDINATOR R/O C. diff 10/31/2021 10/30/2021 10/31/2021 3:51 PM CDT R/O C. diff 09/01/2022 08/31/2022 09/01/2022 5:17 PM CDT documented as of this encounter Care Teams Nursing Home Director Relationship Specialty Start Date End Date Porsha Garrido MD [address] [place] [address] PCP - General 03/04/09 documented as of this encounter
--- OUTSIDE RECORDS SUMMARY | 2024-09-11 08:07 | XMS_ITS | Encounter Summary ---
Author Organization [facility] Address [address] [place] [address] Care Team Providers Care Appliance Service Representative Name Role Phone Porsha Garrido MD Primary Care Provider Encounter Details Date Type Department Care Team (Late st Contact Info) Description 01/22/2002 Outpatient Historical [facility] Pediatrics [place] [address] [facility] [place] [address] Deshawn Kitchen MD NO ADDRESS ON FILE Social History Tobacco Use Types Packs/Day Years Used Date Smoking Tobacco: Never Assessed Comments Unknown Sex and Gender Information Value Date Recorded Sex Assigned at Not on file Legal Sex Female 3:08 AM ACTIVITIES AIDE Gender Identity Not on file Sexual Orientation Not on file documented as of this encounter Plan of Treatment Upcoming Encounters Date Type Department Care Team (Latest Contact Info) Description 09/12/2024 12:00 PM CDT Hospital Encounter [facility] Endoscopy [facility] [address] [place] [address] [address] [place] [address] Gary Burgess MD [address] [facility] [address] [id number] [place] [address] Abdominal pain 09/12/2024 12:00 PM CDT - 09/12/2024 12:30 PM CDT Surgery [facility]oscopy Center [facility] [address] [place] [address] Gary Burgess MD [address] [id number] [place] [address] ESOPHAGOGASTRODUODENOSCOPY 06/25/2025 3:10 PM ACTIVITIES AIDE Office Visit [facility] Gastroenterology [place] [address] [place] [address] Gary Burgess MD [address] [id number] [place] [address] 08/08/2025 10:30 AM CDT Office Visit [facility] Neurology [address] [place] [address] Rama De La Paz MD [address] [place] [address] Scheduled Procedures Name Priority Associated Diagnoses Date/Ti me ESOPHAGOGASTRODUODENOSCOPY Abdominal pain 09/12/2024 12:00 PM CDT documented as of this encounter Visit Diagnoses Not on filedocumented in this encounter Additional Health Concerns Infection Onset Date Last Indicated Resolved Time R/O C. diff 05/21/2020 05/21/2020 05/21/2020 1:01 PM ACTIVITIES AIDE R/O C. diff 10/31/2021 10/30/2021 10/31/2021 3:51 PM CDT R/O C. diff 09/01/2022 08/31/2022 09/01/2022 5:17 PM CDT documented as of this encounter Care Teams Appliance Service Representative Relationship Specialty Start Date End Date Porsha Garrido MD [address] [place] [address] PCP - General 03/04/09 documented as of this encounter
--- OUTSIDE RECORDS SUMMARY | 2024-09-11 08:07 | XMS_ITS | Encounter Summary ---
Author Organization [facility] Address [address] [place] [address] Care Team Providers Care Focusing Machine Operator Name Role Phone Porsha Garrido MD Primary Care Provider [phone] Encounter Details Date Type Department Care Team (Late st Contact Info) Description 10/13/2005 Outpatient Historical [facility] Pediatrics [place] [address] [facility] [place] [address] Deshawn Kitchen MD NO ADDRESS ON FILE Social History Tobacco Use Types Packs/Day Years Used Date Smoking Tobacco: Never Assessed Comments Unknown Sex and Gender Information Value Date Recorded Sex Assigned at Not on file Legal Sex Female 3:08 AM BAND MAKER Gender Identity Not on file Sexual Orientation Not on file documented as of this encounter Plan of Treatment Upcoming Encounters Date Type Department Care Team (Latest Contact Info) Description 09/12/2024 12:00 PM CDT Hospital Encounter [facility] Endoscopy [facility] [address] [place] [address] [address] [place] [address] Gary Burgess MD [address] [facility] [address] [id number] [place] [address] Abdominal pain 09/12/2024 12:00 PM CDT - 09/12/2024 12:30 PM CDT Surgery [facility] Endoscopy Center [facility] [address] [place] [address] Gary Burgess MD [address] [id number] [place] [address] ESOPHAGOGASTRODUODENOSCOPY 06/25/2025 3:10 PM BAND MAKER Office Visit [facility] Gastroenterology [place] [address] [place] [address] Gary Burgess MD [address] [id number] [place] [address] 08/08/2025 10:30 AM CDT Office Visit [facility] Neurology [address] [place] [address] Rama De La Paz MD [address] [place] [address] Scheduled Procedures Name Priority Associated Diagnoses Date/Ti me ESOPHAGOGASTRODUODENOSCOPY Abdominal pain 09/12/2024 12:00 PM CDT documented as of this encounter Visit Diagnoses Not on filedocumented in this encounter Additional Health Concerns Infection Onset Date Last Indicated Resolved Time R/O C. diff 05/21/2020 05/21/2020 05/21/2020 1:01 PM BAND MAKER R/O C. diff 10/31/2021 10/30/2021 10/31/2021 3:51 PM CDT R/O C. diff 09/01/2022 08/31/2022 09/01/2022 5:17 PM CDT documented as of this encounter Care Teams Focusing Machine Operator Relationship Specialty Start Date End Date Porsha Garrido MD [address] [place] [address] PCP - General 03/04/09 documented as of this encounter
--- OUTSIDE RECORDS SUMMARY | 2024-09-11 08:07 | XMS_ITS | Encounter Summary ---
Author Organization [facility] Address [address] [place] [address] Care Team Providers Care Restaurant Area Director Name Role Phone Porsha Garrido MD Primary Care Provider Encounter Details Date Type Department Care Team (Late st Contact Info) Description 12/26/[address] [facility] Pediatrics [place] [address] [facility] [place] [address] Brayan Solitario MD [address] [place] [place] [address] Social History Tobacco Use Types Packs/Day Years Used Date Smoking Tobacco: Never Assessed Comments Unknown Sex and Gender Information Value Date Recorded Sex Assigned at Not on file Legal Sex Female 3:08 AM HELP DESK TECHNICIAN Gender Identity Not on file Sexual Orientation Not on file documented as of this encounter Plan of Treatment Upcoming Encounters Date Type Department Care Team (Latest Contact Info) Description 09/12/2024 12:00 PM CDT Hospital Encounter [facility] [address] [place] [address] Gary Burgess MD [address] [facility] [address] [id number] [place] [address] Abdominal pain 09/12/2024 12:00 PM CDT - 09/12/2024 12:30 PM CDT Surgery [facility] Endoscopy Center [address] [place] [address] Gary Burgess MD [address] [id number] [place] [address] ESOPHAGOGASTRODUODENOSCOPY 06/25/2025 3:10 PM HELP DESK TECHNICIAN Office Visit [facility] Gastroenterology [place] [address] [place] [address] Gary Burgess MD [address] [id number] [place] [address] 08/08/2025 10:30 AM CDT Office Visit [facility] Neurology [address] [place] [address] Rama De La Paz MD [address] [place] [address] Scheduled Procedures Name Priority Associated Diagnoses Date/Ti me ESOPHAGOGASTRODUODENOSCOPY Abdominal pain 09/12/2024 12:00 PM CDT documented as of this encounter Visit Diagnoses Not on filedocumented in this encounter Additional Health Concerns Infection Onset Date Last Indicated Resolved Time R/O C. diff 05/21/2020 05/21/2020 05/21/2020 1:01 PM HELP DESK TECHNICIAN R/O C. diff 10/31/2021 10/30/2021 10/31/2021 3:5 1 PM CDT R/O C. diff 09/01/2022 08/31/2022 09/01/2022 5:17 PM CDT documented as of this encounter Care Teams Restaurant Area Director Relationship Specialty Start Date End Date Porsha Garrido MD [address] [place] [address] [address] [place] [address] PCP - General 03/04/09 documented as of this encounter
--- OUTSIDE RECORDS SUMMARY | 2024-09-11 08:07 | XMS_ITS | Encounter Summary ---
Author Organization [facility] Address [address] [place] [address] Care Team Providers Care Nickel Operator Name Role Phone Porsha Garrido MD Primary Care Provider Encounter Details Date Type Department Care Team (Late st Contact Info) Description 03/08/2002 Outpatient Historical [facility] Pediatrics [place] [address] [facility] [place] [address] [place] [phone] Deshawn Kitchen MD NO ADDRESS ON FILE Social History Tobacco Use Types Packs/Day Years Used Date Smoking Tobacco: Never Assessed Comments Unknown Sex and Gender Information Value Date Recorded Sex Assigned at Not on file Legal Sex Female 3:08 AM COMMUNITY MENTAL HEALTH SOCIAL WORKER Gender Identity Not on file Sexual Orientation Not on file documented as of this encounter Plan of Treatment Upcoming Encounters Date Type Department Care Team (Latest Contact Info) Description 09/12/2024 12:00 PM CDT Hospital Encounter [facility] Endoscopy [facility] [address] [place] [address] [address] [place] [address] Gary Burgess MD [address] [facility] [address] [id number] [place] [address] Abdominal pain 09/12/2024 12:00 PM CDT - 09/12/2024 12:30 PM CDT Surgery [facility] [address] [place] [phone] Gary Burgess MD [address] [id number] [place] [address] ESOPHAGOGASTRODUODENOSCOPY 06/25/2025 3:10 PM COMMUNITY MENTAL HEALTH SOCIAL WORKER Office Visit [facility] Gastroenterology [place] [address] [place] [address] Gary Burgess MD [address] [id number] [place] [address] 08/08/2025 10:30 AM CDT Office Visit [facility] Neurology [address] [place] [address] Rama De La Paz MD [address] [place] [address] Scheduled Procedures Name Priority Associated Diagnoses Date/Ti me ESOPHAGOGASTRODUODENOSCOPY Abdominal pain 09/12/2024 12:00 PM CDT documented as of this encounter Visit Diagnoses Not on filedocumented in this encounter Additional Health Concerns Infection Onset Date Last Indicated Resolved Time R/O C. diff 05/21/2020 05/21/2020 05/21/2020 1:01 PM COMMUNITY MENTAL HEALTH SOCIAL WORKER R/O C. diff 10/31/2021 10/30/2021 10/31/2021 3:51 PM CDT R/O C. diff 09/01/2022 08/31/2022 09/01/2022 5:17 PM CDT documented as of this encounter Care Teams Nickel Operator Relationship Specialty Start Date End Date Porsha Garrido MD [address] [place] [address] PCP - General 03/04/09 documented as of this encounter
--- OUTSIDE RECORDS SUMMARY | 2024-09-11 08:07 | XMS_ITS | Encounter Summary ---
Author Organization [facility] Address [address] [place] [address] Care Team Providers Care Airport Security Screener Name Role Phone Porsha Garrido MD Primary Care Provider Encounter Details Date Type Department Care Team (Late st Contact Info) Description 10/13/2005 Outpatient Historical [facility] Pediatrics [place] [address] [facility] [place] [address] Deshawn Kitchen MD NO ADDRESS ON FILE Social History Tobacco Use Types Packs/Day Years Used Date Smoking Tobacco: Never Assessed Comments Unknown Sex and Gender Information Value Date Recorded Sex Assigned at Not on file Legal Sex Female 3:08 AM LUMBER YARD WORKER Gender Identity Not on file Sexual Orientation Not on file documented as of this encounter Plan of Treatment Upcoming Encounters Date Type Department Care Team (Latest Contact Info) Description 09/12/2024 12:00 PM CDT Hospital Encounter [facility] Endoscopy [facility] [address] [place] [address] [address] [place] [address] Gary Burgess MD [address] [facility] Rd [id number] [place] [address] Abdominal pain 09/12/2024 12:00 PM CDT - 09/12/2024 12:30 PM CDT Surgery [facility] Endoscopy Center [facility] [address] [place] [phone] Gary Burgess MD [address] [id number] [place] [address] ESOPHAGOGASTRODUODENOSCOPY 06/25/2025 3:10 PM LUMBER YARD WORKER Office Visit [facility] Gastroenterology [place] [address] [place] [address] Gary Burgess MD [address] [id number] [place] [address] 08/08/2025 10:30 AM CDT Office Visit [facility] Neurology [address] [place] [address] Rama De La Paz MD [address] [place] [address] Scheduled Procedures Name Priority Associated Diagnoses Date/Ti me ESOPHAGOGASTRODUODENOSCOPY Abdominal pain 09/12/2024 12:00 PM CDT documented as of this encounter Visit Diagnoses Not on filedocumented in this encounter Additional Health Concerns Infection Onset Date Last Indicated Resolved Time R/O C. diff 05/21/2020 05/21/2020 05/21/2020 1:01 PM LUMBER YARD WORKER R/O C. diff 10/31/2021 10/30/2021 10/31/2021 3:51 PM CDT R/O C. diff 09/01/2022 08/31/2022 09/01/2022 5:17 PM CDT documented as of this encounter Care Teams Airport Security Screener Relationship Specialty Start Date End Date Porsha Garrido MD [address] [place] [address] PCP - General 03/04/09 documented as of this encounter
--- OUTSIDE RECORDS SUMMARY | 2024-09-11 08:07 | XMS_ITS | Encounter Summary ---
Author Organization [facility] Address [address] [facility] [place] [address] Care Team Providers Care Pointer Helper Name Role Phone Porsha Garrido MD Primary Care Provider Gary Burgess MD Unavailable [phone] Evelyn García RN Unavailable [phone] Joselito Gold MD Unavailable [phone] Michelle Nogueira WOMENS HEALTH NURSE PRACTITIONER-CASE LINER Unavailable [phone] Porsha Garrido MD Unavailable [phone] Marjorie Weston DO Unavailable Reason for Visit * Reason Onset Date Comments MEDICATION REFILL 04/16/2024 Encounter Details Date Type Department Care Team (Late st Contact Info) Description 04/16/2024 Refill [facility] Group - CHEMISTRY DEPARTMENT CHAIR [facility] [address] [address] Joselito Gold MD [address] [place] [address] MEDICATION REFILL Social History Tobacco Use [...] on file Legal Sex Female 12:18 PM JAVA WEB SERVICES DEVELOPER Gender Identity Female 01/16/2019 9:49 AM CDT Sexual Orientation Not on file 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 on file Not [...] [facility] Breast Care - Surgery [address] [place] [phone] Satnam Nicole MD [address] [place] [address] 10 [place] [address] 10/12/2024 8:15 AM CDT Video Visit [facility] Medical [facility] - Family Medicine [address] [place] [address] [id number] Porsha Garrido MD [address] [place] [address] documented as of this encounter Visit Diagnoses Not on filedocumented in this encounter Care Teams Pointer Helper Relationship Specialty Start Date End Date Porsha Garrido MD [address] [place] [address] [phone] PCP - General 01/31/11 Porsha Garrido MD [address] [place] [address] PCP - Attributed-[employer] 11/13/22 07/31/24 Gary Burgess MD [address] [place] [address] [address] [place] [address] Gastroenterology 08/22/13 Evelyn García RN Marketing Researcher 01/05/15 06/07/24 Joselito Gold MD [address] [place] [address] Obstetrics and Gynecology 07/15/20 5 Michelle Nogueira APRN-KESHA [address] [facility] [address] [place] [address] Nurse Practitioner Nurse Practitioner Adult Health 09/03/22 Marjorie Weston DO [address] [facility] [address] [place] [address] Rheumatology 05/31/24 documented as of this encounter
--- OUTSIDE RECORDS SUMMARY | 2024-09-11 08:07 | XMS_ITS | Encounter Summary ---
Author Organization [facility] Address [address] [place] [address] Care Team Providers Care Infection Preventionist Name Role Phone Porsha Garrido MD Primary Care Provider [phone] Encounter Details Date Type Department Care Team (Late st Contact Info) Description 01/26/2001 Outpatient Historical [facility] Pediatrics [place] [address] [facility] [address] [place] [address] Ally Keller MD [address] [facility] [address] [place] [address] Social History Tobacco Use Types Packs/Day Years Used Date Smoking Tobacco: Never Assessed Comments Unknown Sex and Gender Information Value Date Recorded Sex Assigned at Not on file Legal Sex Female 3:08 AM PHYSICAL AERODYNAMICIST Gender Identity Not on file Sexual Orientation Not on file documented as of this encounter Plan of Treatment Upcoming Encounters Date Type Department Care Team (Latest Contact Info) Description 09/12/2024 12:00 PM CDT Hospital Encounter [facility] [address] [place] [phone] Gary Burgess MD [address] [facility] [id number] [place] [address] Abdominal pain 09/12/2024 12:00 PM CDT - 09/12/2024 12:30 PM CDT Surgery [facility] [address] [place] [address] [address] [place] [address] Gary Burgess MD [address] [id number] [place] [address] ESOPHAGOGASTRODUODENOSCOPY 06/25/2025 3:10 PM PHYSICAL AERODYNAMICIST Office Visit [facility] Gastroenterology [place] [address] [place] [address] Gary Burgess MD [address] [id number] [place] [address] 08/08/2025 10:30 AM CDT Office Visit [facility] Neurology [facility] [address] [place] [address] Rama De La Paz MD [address] [facility] [address] [place] [address] Scheduled Procedures Name Priority Associated Diagnoses Date/Ti me ESOPHAGOGASTRODUODENOSCOPY Abdominal pain 09/12/2024 12:00 PM CDT documented as of this encounter Visit Diagnoses Not on filedocumented in this encounter Additional Health Concerns Infection Onset Date Last Indicated Resolved Time R/O C. diff 05/21/2020 05/21/2020 05/21/2020 1:01 PM PHYSICAL AERODYNAMICIST R/O C. diff 10/31/2021 10/30/2021 10/31/2021 3:51 PM CDT R/O C. diff 09/01/2022 08/31/2022 09/01/2022 5:17 PM CDT documented as of this encounter Care Teams Infection Preventionist Relationship Specialty Start Date End Date Porsha Garrido MD [address] [place] [address] [address] [place] [address] PCP - General 03/04/09 documented as of this encounter
--- OUTSIDE RECORDS SUMMARY | 2024-09-11 08:07 | XMS_ITS | Encounter Summary ---
Author Organization [facility] Address [address] [facility] [place] [address] Care Team Providers Care Snowboarding Instructor Name Role Phone Porsha Garrido MD Primary Care Provider Carina Rey MD Unavailable Unavailable Gary Burgess MD Unavailable [phone] Evelyn García RN Unavailable [phone] Porsha Garrido MD Unavailable [phone] Joselito Gold MD Unavailable [phone] Porsha Garrido MD Unavailable [phone] Joselito Gold MD Unavailable [phone] Jolie Marrero PA-C Unavailable [phone] Porsha Garrido MD Unavailable [phone] Porsha Garrido MD Unavailable [phone] Joselito Casarez MD Unavailable Unavailable Michelle Nogueira SWAGER OPERATOR-COMPLIANCE REPRESENTATIVE DEALER Unavailable [phone] Porsha Garrido MD Unavailable [phone] Paloma Romo Unavailable Marjorie Weston DO Unavailable Porsha Garrido MD Unavailable Encounter Details Date Type Department Care Team (Late Contact Info) Description 09/11/2012 [facility] Outpatient Visit [facility] RE[facility]AB [address] [place] [address] Unknown, Provider Social History Tobacco Use Types Packs/Day Years Used Date Smoking Tobacco: Never Smokeless Tobacco: Never Alcohol Use Standard Drinks/Week Comments Yes 0 (1 standard drink = 0.6 oz pur e alcohol) occasionally Comments No Sex and Gender Information Value Date Recorded Sex Assigned at Not on file Legal Sex Female 12:18 PM PRINCIPAL MILITARY ANALYST Gender Identity Female 01/16/2019 9:49 AM CDT Sexual Orientation Not on file 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 file Not on file Not on f ile documented as of this encounter Plan of Treatment Upcoming Encounters Date Type Department Care Team (Late st Contact Info) Description 10/05/2024 10:00 AM CDT Office Visit [facility] Breast Care - Surgery [address] [place] [phone] Satnam Nicole MD [address] [place] [phone] 10/12/2024 8:15 AM CDT Video Visit [facility] Medical Group - Family Medicine [address] [place] [address] Porsha Garrido MD [address] [place] [address] documented as of this encounter Visit Diagnoses Not on filedocumented in this encounter Additional Health Concerns Infection Onset Date Last Indicated Resolved Time COVID-19 Under Investigation 04/01/2020 04/01/2020 04/02/2020 2:40 PM PRINCIPAL MILITARY ANALYST COVID-19 Confirmed 04/01/2020 04/01/2020 11/27/202 0 4:34 AM PRINCIPAL MILITARY ANALYST documented as of this encounter Care Teams Snowboarding Instructor Relationship Specialty Start Date End Date Porsha Garrido MD [address] [place] [address] PCP - General 01/31/11 Porsha Garrido MD [address] [place] [address] PCP - Attributed-[employer] Commercial 09/13/18 11/01/19 Joselito Gold MD [address] [place] [address] PCP - Attributed-[employer] 07/15/19 08/14/19 Porsha Garrido MD [address] [place] [address] PCP - Attributed-[employer] 08/15/19 07/13/20 Jolie Marrero PA-C [address] [place] [phone] PCP - Attributed-[employer] 07/14/20 08/13/20 Porsha Garrido MD [address] [place] [address] PCP - Attributed-[employer] 08/14/20 12/29/21 Porsha Garrido MD [address] [place] [address] PCP - Attributed-[place] Commercial 05/16/22 08/31/22 Porsha Garrido MD [address] [place] [address] [place] [address] PCP - Attributed-[place] Commercial 11/13/22 07/31/24 Porsha Garrido MD [address] [place] [address] PCP - Attributed-[employer] 10/29/16 09/14/17 Carina Rey MD [address] [place] [address] Obstetrics and Gynecology 10/27/11 07/14/20 Gary Burgess MD [address] [place] [address] Gastroenterology 08/22/13 Evelyn García, RN Software Quality Assurance Analyst 01/05/15 06/07/24 Joselito Gold MD [address] [place] [address] Obstetrics and Gynecology 07/15/20 5 Joselito Casarez MD [address] [place] [address] Hematology and Oncology 09/03/22 05/26/23 Michelle Nogueira, SWAGER OPERATOR-COMPLIANCE REPRESENTATIVE DEALER [address] [place] [address] [place] [address] Nurse Practitioner Nurse Practitioner Adult Health 09/03/22 Paloma Romo Care Coordination Specialist Care Management 12/13/23 12/13/23 Marjorie Weston DO [address] [facility] [address] [place] [address] Rheumatology 05/31/24 documented as of this encounter
--- OUTSIDE RECORDS SUMMARY | 2024-09-11 08:07 | XMS_ITS | Encounter Summary ---
Author Organization [facility] Address [address] [place] [address] Care Team Providers Care Sand Tester Name Role Phone Porsha Garrido MD Primary Care Provider Encounter Details Date Type Department Care Team (Late st Contact Info) Description 07/09/1998 Outpatient Historical [facility] Pediatrics [place] [address] [facility] [place] [address] [place] [phone] Deshawn Kitchen MD NO ADDRESS ON FILE Social History Tobacco Use Types Packs/Day Years Used Date Smoking Tobacco: Never Assessed Comments Unknown Sex and Gender Information Value Date Recorded Sex Assigned at Not on file Legal Sex Female 3:08 AM WEATHER STRIP MECHANIC Gender Identity Not on file Sexual Orientation Not on file documented as of this encounter Plan of Treatment Upcoming Encounters Date Type Department Care Team (Latest Contact Info) Description 09/12/2024 12:00 PM CDT Hospital Encounter [facility] Endoscopy [facility] [address] [place] [address] [address] [place] [address] Gary Burgess MD [address] [facility] [address] [id number] [place] [address] Abdominal pain 09/12/2024 12:00 PM CDT - 09/12/2024 12:30 PM CDT Surgery [facility] Endoscopy [facility] [address] [place] [phone] Gary Burgess MD [address] [id number] [place] [phone] ESOPHAGOGASTRODUODENOSCOPY 06/25/2025 3:10 PM WEATHER STRIP MECHANIC Office Visit [facility] Gastroenterology [place] [address] [place] [address] Gary Burgess MD [address] [id number] [place] [address] 08/08/2025 10:30 AM CDT Office Visit [facility] Neurology [address] [place] [address] Rama De La Paz MD [address] [place] [address] Scheduled Procedures Name Priority Associated Diagnoses Date/Ti me ESOPHAGOGASTRODUODENOSCOPY Abdominal pain 09/12/2024 12:00 PM CDT documented as of this encounter Visit Diagnoses Not on filedocumented in this encounter Additional Health Concerns Infection Onset Date Last Indicated Resolved Time R/O C. diff 05/21/2020 05/21/2020 05/21/2020 1:01 PM WEATHER STRIP MECHANIC R/O C. diff 10/31/2021 10/30/2021 10/31/2021 3:51 PM CDT R/O C. diff 09/01/2022 08/31/2022 09/01/2022 5:17 PM CDT documented as of this encounter Care Teams Sand Tester Relationship Specialty Start Date End Date Porsha Garrido MD [address] [place] [address] PCP - General 03/04/09 documented as of this encounter
--- OUTSIDE RECORDS SUMMARY | 2024-09-11 08:07 | XMS_ITS | Encounter Summary ---
Author Organization [facility] Address [address] [place] [address] Care Team Providers Care Behavioral Health Assistant Name Role Phone Porsha Garrido MD Primary Care Provider Encounter Details Date Type Department Care Team (Late st Contact Info) Description 08/15/2000 Outpatient Historical [facility] Pediatrics [place] [address] [facility] [place] [address] [place] [phone] Deshawn Kitchen MD NO ADDRESS ON FILE Social History Tobacco Use Types Packs/Day Years Used Date Smoking Tobacco: Never Assessed Comments Unknown Sex and Gender Information Value Date Recorded Sex Assigned at Not on file Legal Sex Female 3:08 AM PHOTOGRAPHER STILL Gender Identity Not on file Sexual Orientation Not on file documented as of this encounter Plan of Treatment Upcoming Encounters Date Type Department Care Team (Latest Contact Info) Description 09/12/2024 12:00 PM CDT Hospital Encounter [facility] Endoscopy [facility] [address] [place] [address] [address] [place] [address] Gary Burgess MD [address] [facility] [address] [id number] [place] [address] Abdominal pain 09/12/2024 12:00 PM CDT - 09/12/2024 12:30 PM CDT Surgery [facility] Endoscopy Center [facility] [address] [place] [phone] Gary Burgess MD [address] [id number] [place] [address] ESOPHAGOGASTRODUODENOSCOPY 06/25/2025 3:10 PM PHOTOGRAPHER STILL Office Visit [facility] Gastroenterology [place] [address] [place] [address] Gary Burgess MD [address] [id number] [place] [address] 08/08/2025 10:30 AM CDT Office Visit [facility] Neurology [address] [place] [address] Rama De La Paz MD [address] [place] [address] Scheduled Procedures Name Priority Associated Diagnoses Date/Ti me ESOPHAGOGASTRODUODENOSCOPY Abdominal pain 09/12/2024 12:00 PM CDT documented as of this encounter Visit Diagnoses Not on filedocumented in this encounter Additional Health Concerns Infection Onset Date Last Indicated Resolved Time R/O C. diff 05/21/2020 05/21/2020 05/21/2020 1:01 PM PHOTOGRAPHER STILL R/O C. diff 10/31/2021 10/30/2021 10/31/2021 3:51 PM CDT R/O C. diff 09/01/2022 08/31/2022 09/01/2022 5:17 PM CDT documented as of this encounter Care Teams Behavioral Health Assistant Relationship Specialty Start Date End Date Porsha Garrido MD [address] [place] [address] PCP - General 03/04/09 documented as of this encounter
--- OUTSIDE RECORDS SUMMARY | 2024-09-11 08:07 | XMS_ITS | Clinical Summary ---
Author Organization [facility] Address [address] [place] [address] Care Team Providers Care Channel Director Name Role Phone Porsha Garrido MD Primary Care Provider [phone] Gary Burgess MD Unavailable [phone] Michelle Nogueira APRN-PROMOTIONAL ADVERTISING ASSISTANT Unavailable [phone] Marjorie Weston DO Unavailable Source Comments [facility],non-owned Affiliates and Associated Physician Practices is amultiple site organization consisting of ambulatory clinics and hospital sitesin [place], [place], [place] and [place]. This disclosure is being madepursuant to the Care Everywhere program and may not contain all information available regarding this patient. Last updated 18.[facility] Allergies Active Allergy Reactions Criticality Noted Date [...] fluticasone propionate (FLONASE) 50 MCG/ACT nasal spray [place] 2 (two) sprays into the nose once [...] once daily 90 tablet 09/05/19 25 Active ALPRAZolam (Xanax) 0.5 MG tabletIndicatio ns:JOHN (generalized [...] Type Department Care Team Description 09/02/[address] [address] Porsha Garrido MD Med Change Request 08/30/[address] [address] Porsha Garrido MD MEDICATION REFILL 08/30/[address] [address] Porsha Garrido MD Refill Request 08/27/2024 7:10 PM CDT Video Visit [address] [phone] Shakira High, MEDICAL OFFICE ASST-PROMOTIONAL ADVERTISING ASSISTANT Referral of patient without examination or treatment 08/08/[address] [address] Porsha Garrido MD Med Change Request 08/03/[address] [address] Porsha Garrido MD Refill Request 08/02/[address] [address] Porsha Garrido MD MEDICATION REFILL 07/28/2024 11:08 AM CDT - 07/28/2024 12:59 PM CDT Emergency ER at [address] [address] Brian Baumann MD Near syncope Discharge Disposition: Home or Self Care 07/28/2024 Travel 07/11/2024 8:45 AM BUDGET CONSULTANT Video Visit [address] [address] Porsha Garrido MD JOHN (generalized anxiety disorder) 07/05/[address] [address] Porsha Garrido MD Refill Request 06/30/[address] [address] Porsha Garrido MD Med Change Request 06/15/2024 Refill [facility] - [facility] [place] [phone] Porsha Garrido MD Med Change Request from Last 3 Months Immunizations Immunization Administration [...] on file Legal Sex Female 12:18 PM BUDGET CONSULTANT Gender Identity Female 01/16/2019 9:49 AM CDT Sexual Orientation Not on file 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 Breast Care - Surgery [address] [place] [phone] Satnam Nicole MD [address] [place] [phone] 10/12/2024 8:15 AM CDT Video Visit [facility] - Family Medicine [address] [place] [address] Porsha Garrido MD [address] [place] [address] Health Maintenance Due Date Last Done Comments [...] APTIMA REFLEX 16,18/45 Routine 06/05/2024 8:24 AM BUDGET CONSULTANT Screening for cervical cancer HEPATITIS C AB [...] - 10.7 x10E9/L 07/28/2024 12:02 PM CDT [facility] RBC Count 4.28 3.90 - 5.20 x10E12/L 07/28/2024 12:02 PM CDT [facility] Hemoglobin 12.8 11.9 - 15.8 g/dL 07/28/2024 12:02 PM CDT [facility] Hematocrit 36.3 34.8 - 46.1 % 07/28/2024 12:02 PM CDT [facility] MCV 84.8 80.0 - 98.0 fL 07/28/2024 12:02 PM CDT [facility] MCH 29.9 26.7 - 33.6 pg 07/28/2024 12:02 PM CDT [facility] MCHC 35.3 31.7 - 36.3 g/dL 07/28/2024 12:02 PM CDT [facility] RDW-CV 12.3 11.3 - 14.8 % 07/28/2024 12:02 PM CDT [facility] Platelet Count 330 150 - 420 x10E9/L 07/28/2024 12:[address] [facility] MPV 8.9 7.8 - 11.4 fL 07/28/2024 12:[address] [facility] Neutrophil % 63.2 41.0 - 74.0 % 07/28/2024 12:[address] [facility] Lymphocyte % 18.8 17.0 - 47.0 % 07/28/2024 12:[address] [facility] Monocyte % 4.6 3.0 - 11.0 % 07/28/2024 12:[address] [facility] Eosinophil % 12.3(H) 0.0 - 7.0 % 07/28/2024 12:[address] [facility] Basophil % 0.8 0.0 - 1.6 % 07/28/2024 12:[address] [facility] Immature Granulocytes % 0.3 0.0 - 1.0 % 07/28/2024 12:[address] [facility] Neutrophil Absolute 6.03 1.60 - 7.50 x10E9/L 07/28/2024 12:[address] [facility] Lymphocyte Absolute 1.80 1.00 - 4.40 x10E9/L 07/28/2024 12:[address] [facility] Monocyte Absolute 0.44 0.15 - 1.00 x10E9/L 07/28/2024 12:[address] [facility] Eosinophil Absolute 1.17(H) 0.00 - 0.60 x10E9/L 07/28/2024 12:[address] [facility] Basophil Absolute 0.08 0.00 - 0.13 x10E9/L 07/28/2024 12:[address] [facility] Blood BLOOD SPECIMEN / Unknown Venipuncture / Unknown 07/28/2024 11:50 AM CDT 07/28/2024 11:57 AM T us Brian Baumann MD LAB - HEMATOLOGY ORDERABLES Final Result [facility] [address] [place] [address] * COMPREHENSIVE METABOLIC PANEL (07/28/2024 11:50 [facility] Glucose 89 70 - 99 mg/dL 07/28/2024 12:[address] [facility] Sodium 140 136 - 145 mmol/L 07/28/2024 12:[address] [facility] Potassium 3.7 3.5 - 5.1 mmol/L 07/28/2024 12:[address] [facility] Chloride 106 98 - 107 mmol/L 07/28/2024 12:[address] [facility] CO2 25 22 - 29 mmol/L 07/28/2024 12:[address] [facility] Calcium 9.2 8.4 - 10.4 mg/dL 07/28/2024 12:[address] [facility] Anion Gap 9 6 - 16 mmol/L 07/28/2024 12:[address] [facility] BUN 10 5.3 - 18.7 mg/dL 07/28/2024 12:[address] [facility] Creatinine 0.69 0.57 - 1.11 mg/dL 07/28/2024 12:[address] [facility] Alkaline Phosphatase 68 40 - 150 U/L 07/28/2024 12:[address] [facility] ALT 15 0 - 55 U/L 07/28/2024 12:[address] [facility] AST 14 5 - 34 U/L 07/28/2024 12:[address] [facility] Protein Total 7.7 6.4 - 8.3 gm/dL 07/28/2024 12:[address] [facility] Albumin 4.2 3.4 - 5.0 gm/dL 07/28/2024 12:[address] [facility] Bilirubin Total 0.4 0.2 - 1.2 mg/dL 07/28/2024 12:[address] [facility] eGFR by CKD-EPI >90 >=90 mL/min/1.7 3 m2 07/28/2024 12:[address] [facility] Blood BLOOD SPECIMEN / Unknown Venipuncture / Unknown 07/28/2024 11:50 AM CDT 07/28/2024 11:57 AM T us Vijai V. Ibis MD LAB - CHEMISTRY ORDERABLES F inal Result [facility] [address] [place] [address] * HCG BETA BLOOD QUANTITATIVE (07/28/2024 11:50 AM CDT) hCG Quantitative <2.42 mIU/mL 07/29/19 12:27 PM CDT [facility] Blood BLOOD SPECIMEN / Unknown Venipuncture / Unknown 07/28/2024 11:50 AM CDT 07/28/2024 11:57 AM CDT Narrative [facility] - 07/28/2024 12:27 PM CDT [...] LAB - CHEMISTRY ORDERABLES F inal Result [facility] [address] [place] [address] * MAGNESIUM BLOOD (07/28/2024 11:50 AM CDT) Magnesium 1.7 1.6 - 2.6 mg/dL 07/28/2024 12:21 PM CDT [facility] Blood BLOOD SPECIMEN / Unknown Venipuncture / Unknown 07/28/2024 11:50 AM CDT 07/28/2024 11:57 AM CDT Brian Baumann MD LAB - CHEMISTRY ORDERABLES F inal Result [facility] [address] [place] [address] * EKG 12-LEAD (07/28/2024 11:15 AM CDT) Ventricular Rate 59 BPM [facility] Atrial Rate 59 BPM [facility] P-R Interval 140 ms [facility] QRS Duration ms 78 ms [facility] Q-T Interval ms 440 ms [facility] QTC Calculation (Bezet) 435 ms [facility] Calculated R [place] -179 degrees [facility] Calculated T [place] -171 degrees [facility] Interpretation EKG Suspect arm lead reversal, interpretation assumes no reversal Sinus bradycardia Right superior axis deviation T wave abnormality, consider inferior ischemia Abnormal ECG When compared with ECG of 06-JUL-2023 11:16, Questionable change in QRS axis T wave inversion now evident in Inferior leads Confirmed by ROBERTA BOGGS MD ([id number]) on 07/30/2024 2:05:41 PM [facility] 07/28/2024 11:1 5 AM CDT 07/30/2024 2:05 PM CDT Brian Baumann MD ECG ORDERABLES Edited Resul t - Final Performing Organization Address [facility] Co de Phone Number [facility] * PAP IG LB +HPV APTIMA REFLEX 16,18/45 (06/05/2024 8:24 AM BUDGET CONSULTANT) Diagnosis Comment [facility] INSURANCE BILL Comment:NEGATIVE FOR [...] UTERINE CERVIX / Unknown 06/05/2024 8:24 AM BUDGET CONSULTANT 06/05/2024 Comment:Cervix Release to [facility] [place] Narrative [facility] INSURANCE BILL - 06/07/2024 1:08 PM BUDGET CONSULTANT Performed at: - [address] [id number] Ne[place]tie Turner: Sejal Ordoñez MD, Phone: [phone] Performed at: 02 - [address] [id number] [place]: Sejal Ordoñez MD, Phone: [phone] Specimen Comment: [id number] Specimen Comment: No. of containers..01 ThinPrep Vial Karen Ngo MEDICAL OFFICE ASST-PROMOTIONAL ADVERTISING ASSISTANT LAB - PATHOLOGY/CYTOLOGY ORDERABLES Final Result [facility] INSURANCE BILL [address] [place] [address] * HEPATITIS C AB W RFLX VERIFICATION (09/25/2018 10:43 AM CDT) Hepatitis C Antibody <0.1 0.0 - 0.9 s/co ratio [facility] ACCOUNT BILL Comment:FASTING Blood BLOOD SPECIMEN / Unknown 09/25/2018 10:43 AM CDT 09/25/2018 Narrative Resulting Agency Comment Lab Testing performed at: [facility] [address] [facility] [id number] Lianne Welch MD LAB - CHEMISTRY ORDERABLES Iesha l Result [facility] ACCOUNT BILL [address] [place] [address] * HIV-1 HIV-2 ANTIBODY + HIV P24 AG PANEL (09/25/2018 10:43 AM CDT) HIV Screen 4th Generation w Reflex Non Reactive Non Reactive [facility] ACCOUNT BILL Comment:FASTING Blood BLOOD SPECIMEN / Unknown 09/25/2018 10:43 AM CDT 09/25/2018 Narrative Resulting Agency Comment Lab Testing performed at: [employer] [address] [facility] [id number] Lianne Welch MD LAB - CHEMISTRY ORDERABLES Iesha l Result Performing Organization Address City/[facility] Co de Phone Number [facility] ACCOUNT BILL [address] [place] [address] from Last 3 Months or Most Recently Relevant to Health Maintenance Insurance [facility] Advance Directives * Full Code (Latest Code Status on File) Date Activated Date Inactivated Comments 01/05/2015 3:32 AM 01/07/2015 2:46 PM Care Teams Channel Director Relationship Specialty Start Date End Date Porsha Garrido MD [address] [facility] [address] [place] [address] PCP - General 01/31/11 Gary Burgess MD [address] [facility] [address] [place], [place] [phone] Gastroenterology 08/22/13 Michelle Nogueira, MEDICAL OFFICE ASST-PROMOTIONAL ADVERTISING ASSISTANT [address] [place] [address] [address] [place], [place] [id number] Nurse Practitioner Nurse Practitioner Adult Health 09/03/22 Marjorie Weston DO [address] [place] [address] [address] [place] [phone] Rheumatology 05/31/24
--- OUTSIDE RECORDS SUMMARY | 2024-09-11 08:07 | XMS_ITS | Encounter Summary ---
Author Organization [facility] Address [address] [place] [address] Care Team Providers Care Overage Shortage And Damage Clerk Name Role Phone Porsha Garrido MD Primary Care Provider Encounter Details Date Type Department Care Team (Late st Contact Info) Description 11/17/2000 Outpatient Historical [facility] Pediatrics [place] [address] [facility] [place] [address] [place] [phone] Deshawn Kitchen MD NO ADDRESS ON FILE Social History Tobacco Use Types Packs/Day Years Used Date Smoking Tobacco: Never Assessed Comments Unknown Sex and Gender Information Value Date Recorded Sex Assigned at Not on file Legal Sex Female 3:08 AM BOARD LAYER Gender Identity Not on file Sexual Orientation Not on file documented as of this encounter Plan of Treatment Upcoming Encounters Date Type Department Care Team (Latest Contact Info) Description 09/12/2024 12:00 PM CDT Hospital Encounter [facility] Endoscopy [facility] [id number] [place] [address] [address] [place] [address] Gary Burgess MD [address] [id number] [place] [address] Abdominal pain 09/12/2024 12:00 PM CDT - 09/12/2024 12:30 PM CDT Surgery [facility] [address] [place] [phone] Gary Burgess MD [address] [id number] [place] [phone] ESOPHAGOGASTRODUODENOSCOPY 06/25/2025 3:10 PM BOARD LAYER Office Visit [facility] Gastroenterology [address] [place] [address] Gary Burgess MD [address] [id number] [place] [address] 08/08/2025 10:30 AM CDT Office Visit [facility] Neurology [address] [place] [address] Rama De La Paz MD [address] [place] [address] Scheduled Procedures Name Priority Associated Diagnoses Date/Ti me ESOPHAGOGASTRODUODENOSCOPY Abdominal pain 09/12/2024 12:00 PM CDT documented as of this encounter Visit Diagnoses Not on filedocumented in this encounter Additional Health Concerns Infection Onset Date Last Indicated Resolved Time R/O C. diff 05/21/2020 05/21/2020 05/21/2020 1:01 PM BOARD LAYER R/O C. diff 10/31/2021 10/30/2021 10/31/2021 3:51 PM CDT R/O C. diff 09/01/2022 08/31/2022 09/01/2022 5:17 PM CDT documented as of this encounter Care Teams Overage Shortage And Damage Clerk Relationship Specialty Start Date End Date Porsha Garrido MD [address] [place] [address] PCP - General 03/04/09 documented as of this encounter
--- OUTSIDE RECORDS SUMMARY | 2024-09-11 08:07 | XMS_ITS | Encounter Summary ---
Author Organization [facility] Address [address] [place] [address] Care Team Providers Care Executive Compensation Analyst Name Role Phone Porsha Garrido MD Primary Care Provider Encounter Details Date Type Department Care Team (Late st Contact Info) Description 12/09/1999 Outpatient Historical [facility] Pediatrics [place] [address] [facility] [place] [address] [place] [address] Ally Keller MD [address] [facility] [address] [place] [address] Social History Tobacco Use Types Packs/Day Years Used Date Smoking Tobacco: Never Assessed Comments Unknown Sex and Gender Information Value Date Recorded Sex Assigned at Not on file Legal Sex Female 3:08 AM PIPE BOWL PAINT TRIMMER Gender Identity Not on file Sexual Orientation Not on file documented as of this encounter Plan of Treatment Upcoming Encounters Date Type Department Care Team (Latest Contact Info) Description 09/12/2024 12:00 PM CDT Hospital Encounter [facility] [address] [place] [phone] Gary Burgess MD [address] [facility] [id number] [place] [address] Abdominal pain 09/12/2024 12:00 PM CDT - 09/12/2024 12:30 PM CDT Surgery [facility] Endoscopy Center [facility] [address] [place] [address] [address] [place] [address] Gary Burgess MD [address] [id number] [place] [address] ESOPHAGOGASTRODUODENOSCOPY 06/25/2025 3:10 PM PIPE BOWL PAINT TRIMMER Office Visit [facility] Gastroenterology [place] [address] [place] [address] Gary Burgess MD [address] [id number] [place] [address] 08/08/2025 10:30 AM CDT Office Visit [facility] Neurology [facility] [address] [place] [address] Rama De La Paz MD [address] [facility] [address] [place] [address] Scheduled Procedures Name Priority Associated Diagnoses Date/Ti me ESOPHAGOGASTRODUODENOSCOPY Abdominal pain 09/12/2024 12:00 PM CDT documented as of this encounter Visit Diagnoses Not on filedocumented in this encounter Additional Health Concerns Infection Onset Date Last Indicated Resolved Time R/O C. diff 05/21/2020 05/21/2020 05/21/2020 1:01 PM PIPE BOWL PAINT TRIMMER R/O C. diff 10/31/2021 10/30/2021 10/31/2021 3:51 PM CDT R/O C. diff 09/01/2022 08/31/2022 09/01/2022 5:17 PM CDT documented as of this encounter Care Teams Executive Compensation Analyst Relationship Specialty Start Date End Date Porsha Garrido MD [address] [place] [address] [address] [place] [address] PCP - General 03/04/09 documented as of this encounter
--- OUTSIDE RECORDS SUMMARY | 2024-09-11 08:07 | XMS_ITS | Encounter Summary ---
Author Organization [facility] Address [address] [facility] [place] [address] Care Team Providers Care Admin Asst Name Role Phone Porsha Garrido MD Primary Care Provider Carina Rey MD Unavailable Unavailable Gary Burgess MD Unavailable [phone] Evelyn García RN Unavailable [phone] Porsha Garrido MD Unavailable [phone] Joselito Gold MD Unavailable [phone] Porsha Garrido MD Unavailable [phone] Joselito Gold MD Unavailable [phone] Jolie Marrero PA-C Unavailable [phone] Porsha Garrido MD Unavailable [phone] Porsha Garrido MD Unavailable [phone] Joselito Casarez MD Unavailable Unavailable Michelle Nogueira RAIL GANG SUPERVISOR-WETLANDS TECHNICIAN Unavailable [phone] Porsha Garrido MD Unavailable [phone] Paloma Romo Unavailable Marjorie Weston DO Unavailable Porsha Garrido MD Unavailable [phone] Encounter Details Date Type Department Care Team (Late Contact Info) Description 10/28/2014 Therapy Visit [facility] PHYSICAL THERAPY [address] [place] [address] AlvaradohansaMeir DO [address] [place] [address] Social History Tobacco Use Types Packs/Day Years Used Date Smoking Tobacco: Never Smokeless Tobacco: Never Alcohol Use Standard Drinks/Week Comments Yes 0 (1 standard drink = 0.6 oz pur e alcohol) occasionally Comments No Sex and Gender Information Value Date Recorded Sex Assigned at Not on file Legal Sex Female 12:18 PM TRAVELING FREIGHT AGENT Gender Identity Female 01/16/2019 9:49 AM CDT Sexual Orientation Not on file 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 Breast Care - Surgery [address] [place] [phone] Satnam Nicole MD [address] [address] 10/12/2024 8:15 AM CDT Video Visit [facility] Medical Group - Family Medicine [address] [place] [address] Porsha Garrido MD [address] [place] [address] documented as of this encounter Visit Diagnoses Not on filedocumented in this encounter Additional Health Concerns Infection Onset Date Last Indicated Resolved Time COVID-19 Under Investigation 04/01/2020 04/01/2020 04/02/2020 2:40 PM TRAVELING FREIGHT AGENT COVID-19 Confirmed 04/01/2020 04/01/2020 0 4:34 AM TRAVELING FREIGHT AGENT documented as of this encounter Care Teams Admin Asst Relationship Specialty Start Date End Date Porsha Garrido MD [address] [place] [address] PCP - General 01/31/11 Porsha Garrido MD [address] [place] [address] [place] [address] PCP - Attributed-[employer] Commercial 09/13/18 11/01/19 Joselito Gold MD [address] [place] [address] PCP - Attributed-[employer] 07/15/19 08/14/19 Porsha Garrido MD [address] [place] [address] PCP - Attributed-[employer] 08/15/19 07/13/20 Jolie Marrero PA-C [address] [place] [address] [place] [phone] PCP - Attributed-[employer] 07/14/20 08/13/20 Porsha Garrido MD [address] [place] [address] PCP - Attributed-[employer] 08/14/20 12/29/21 Porsha Garrido MD [address] [place] [address] PCP - Attributed-[place] Commercial 05/16/22 08/31/22 Porsha Garrido MD [address] [place] [address] [place] [address] PCP - Attributed-[place] Commercial 11/13/22 07/31/24 Porsha Garrido MD [address] [place] [address] PCP - Attributed-[employer] 10/29/16 09/14/17 Carina Rey MD [address] [place] [address] [place] [address] Obstetrics and Gynecology 10/27/11 07/14/20 Gray Burgess MD [address] [place] [address] [address] [place] [address] Gastroenterology 08/22/13 Evelyn García, RN Evaporator Supervisor 01/05/15 06/07/24 Joselito Gold MD [address] [place] [address] Obstetrics and Gynecology 07/15/20 5 Joselito Casarez MD [address] [place] [address] [address] [place] [address] Hematology and Oncology 09/03/22 05/26/23 Michelle Nogueira, RAIL GANG SUPERVISOR-WETLANDS TECHNICIAN [address] [place] [address] [address] [place] [address] Nurse Practitioner Nurse Practitioner Adult Health 09/03/22 Paloma Romo Care Coordination Specialist Care Management 12/13/23 12/13/23 Marjorie Weston DO [address] [phone] Rheumatology 05/31/24 documented as of this encounter
--- OUTSIDE RECORDS SUMMARY | 2024-09-11 08:07 | XMS_ITS | Encounter Summary ---
Author Organization [facility] Address [address] [place] [address] Care Team Providers Care Senior Web Architect Name Role Phone Porsha Garrido MD Primary Care Provider Encounter Details Date Type Department Care Team (Late st Contact Info) Description 10/23/2001 Outpatient Historical [facility] Pediatric[facility] [place] [address] [facility] [place] [phone] Deshawn Kitchen MD NO ADDRESS ON FILE [...] 12:00 PM CDT Hospital Encounter [facility] Endoscopy [facility] [address] [place] [address] [address] [place] [address] Gary Burgess MD [address] [facility] [address] [id number] [place] [address] Abdominal pain 09/12/2024 12:00 PM CDT - 09/12/2024 12:30 PM CDT Surgery [facility] Endoscopy [facility] [address] [place] [address] Gary Burgess MD [address] [id number] [place] [address] ESOPHAGOGASTRODUODENOSCOPY 06/25/2025 3:10 PM PHOTOGRAPHER STILL Office Visit [facility] Gastroenterology [place] [address] [place] [address] Gary Burgess MD [address] [id number] [place] [address] 08/08/2025 10:30 AM CDT Office Visit [facility] Neurology [address] [place] [address] Rama De La Paz MD [address] [place] [address] Scheduled Procedures Name Priority Associated [...] as of this encounter Care Teams Senior Web Architect Relationship Specialty Start Date End Date Porsha Garrido MD [address] [place] [address] PCP - General 03/04/09 documented as of this encounter
--- OUTSIDE RECORDS SUMMARY | 2024-09-11 08:07 | XMS_ITS | Encounter Summary ---
Author Organization [facility] Address [address] [place] [address] Care Team Providers Care Corn Sheller Name Role Phone Porsha Garrido MD Primary Care Provider Encounter Details Date Type Department Care Team (Late st Contact Info) Description 10/13/2005 Outpatient Historical [facility] Pediatrics [place] [address] [facility] [place] [phone] Deshawn Kitchen MD NO ADDRESS ON FILE Social History Tobacco Use Types Packs/Day Years Used Date Smoking Tobacco: Never Assessed Comments Unknown Sex and Gender Information Value Date Recorded Sex Assigned at Not on file Legal Sex Female 3:08 AM LONG HAUL TRUCK DRIVER Gender Identity Not on file Sexual Orientation Not on file documented as of this encounter Plan of Treatment Upcoming Encounters Date Type Department Care Team (Latest Contact Info) Description 09/12/2024 12:00 PM CDT Hospital Encounter [facility] Endoscopy [facility] [address] [place] [address] [address] [place] [address] Gary Burgess MD [address] [facility] [address] [id number] [place] [address] Abdominal pain 09/12/2024 12:00 PM CDT - 09/12/2024 12:30 PM CDT Surgery [facility] Endoscopy Center [facility] [address] [place] [address] Gary Burgess MD [address] [id number] [place] [address] ESOPHAGOGASTRODUODENOSCOPY 06/25/2025 3:10 PM LONG HAUL TRUCK DRIVER Office Visit [facility] Gastroenterology [place] [address] [place] [address] Gary Burgess MD [address] [id number] [place] [address] 08/08/2025 10:30 AM CDT Office Visit [facility] Neurology [address] [place] [address] Rama De La Paz MD [address] [place] [address] Scheduled Procedures Name Priority Associated Diagnoses Date/Ti me ESOPHAGOGASTRODUODENOSCOPY Abdominal pain 09/12/2024 12:00 PM CDT documented as of this encounter Visit Diagnoses Not on filedocumented in this encounter Additional Health Concerns Infection Onset Date Last Indicated Resolved Time R/O C. diff 05/21/2020 05/21/2020 05/21/2020 1:01 PM LONG HAUL TRUCK DRIVER R/O C. diff 10/31/2021 10/30/2021 10/31/2021 3:51 PM CDT R/O C. diff 09/01/2022 08/31/2022 09/01/2022 5:17 PM CDT documented as of this encounter Care Teams Corn Sheller Relationship Specialty Start Date End Date Porsha Garrido MD [address] [place] [address] PCP - General 03/04/09 documented as of this encounter
--- OUTSIDE RECORDS SUMMARY | 2024-09-11 08:07 | XMS_ITS | Encounter Summary ---
Author Organization [facility] Address [address] [place] [address] Care Team Providers Care Cost Control Supervisor Name Role Phone Porsha Garrido MD Primary Care Provider Encounter Details Date Type Department Care Team (Late st Contact Info) Description 01/17/1998 Outpatient Historical [facility] Pediatrics [place] [address] [facility] [place] [address] Eduardo Mason MD NO ADDRESS ON FILE Social History Tobacco Use Types Packs/Day Years Used Date Smoking Tobacco: Never Assessed Comments Unknown Sex and Gender Information Value Date Recorded Sex Assigned at Not on file Legal Sex Female 3:08 AM SECURITIES DEALER Gender Identity Not on file Sexual Orientation Not on file documented as of this encounter Plan of Treatment Upcoming Encounters Date Type Department Care Team (Latest Contact Info) Description 09/12/2024 12:00 PM CDT Hospital Encounter [facility] [address] [place] [address] [address] [place] [address] Gary Burgess MD [address] [facility] [id number] [place] [address] Abdominal pain 09/12/2024 12:00 PM CDT - 09/12/2024 12:30 PM CDT Surgery [facility] Endoscopy Center [facility] [address] [place] [address] Gary Burgess MD [address] [id number] [place] [address] ESOPHAGOGASTRODUODENOSCOPY 06/25/2025 3:10 PM SECURITIES DEALER Office Visit [facility] Gastroenterology [place] [address] [place] [address] Gary Burgess MD [address] [id number] [place] [address] 08/08/2025 10:30 AM CDT Office Visit [facility] Neurology [address] [place] [address] Rama De La Paz MD [address] [place] [address] Scheduled Procedures Name Priority Associated Diagnoses Date/Ti me ESOPHAGOGASTRODUODENOSCOPY Abdominal pain 09/12/2024 12:00 PM CDT documented as of this encounter Visit Diagnoses Not on filedocumented in this encounter Additional Health Concerns Infection Onset Date Last Indicated Resolved Time R/O C. diff 05/21/2020 05/21/2020 05/21/2020 1:01 PM SECURITIES DEALER R/O C. diff 10/31/2021 10/30/2021 10/31/2021 3:51 PM CDT R/O C. diff 09/01/2022 08/31/2022 09/01/2022 5:17 PM CDT documented as of this encounter Care Teams Cost Control Supervisor Relationship Specialty Start Date End Date Porsha Garrido MD [address] [place] [address] [place] [address] PCP - General 03/04/09 documented as of this encounter
--- OUTSIDE RECORDS SUMMARY | 2024-09-11 08:07 | XMS_ITS | Encounter Summary ---
Author Organization [facility] Address [address] [facility] [place] [address] Care Team Providers Care Surgery Assistant Name Role Phone Porsha Garrido MD Primary Care Provider Carina Rey MD Unavailable Unavailable Gary Burgess MD Unavailable [phone] Evelyn García RN Unavailable [phone] Porsha Garrido MD Unavailable [phone] Joselito Gold MD Unavailable [phone] Porsha Garrido MD Unavailable [phone] Joselito Gold MD Unavailable [phone] Jolie Marrero PA-C Unavailable [phone] Porsha Garrido MD Unavailable [phone] Porsha Garrido MD Unavailable [phone] Joselito Casarez MD Unavailable Unavailable Michelle Nogueira TWITCHELL OPERATOR-SUBSTATION WIREMAN Unavailable [phone] Porsha Garrido MD Unavailable [phone] Paloma Romo Unavailable Marjorie Weston DO Unavailable Porsha Garrido MD Unavailable Encounter Details Date Type Department Care Team (Late Contact Info) Description 10/05/2012 [facility] Outpatient Visit [facility] REHAB [address] [place] [address] Unknown, Provider Social History Tobacco Use Types Packs/Day Years Used Date Smoking Tobacco: Never Smokeless Tobacco: Never Alcohol Use Standard Drinks/Week Comments Yes 0 (1 standard drink = 0.6 oz pur e alcohol) occasionally Comments No Sex and Gender Information Value Date Recorded Sex Assigned at Not on file Legal Sex Female 12:18 PM ACCOUNT ADJUSTER Gender Identity Female 01/16/2019 9:49 AM CDT Sexual Orientation Not on file 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 Not on file Not on f ile documented as of this encounter Plan of Treatment Upcoming Encounters Date Type Department Care Team (Late st Contact Info) Description 10/05/2024 10:00 AM CDT Office Visit [facility] Breast Care - Surgery [address] [place] [phone] Satnam Nicole MD [address] [place] [phone] 10/12/2024 8:15 AM CDT Video Visit [facility] - Family Medicine [address] [place] [address] Porsha Garrido MD [address] [place] [address] documented as of this encounter Visit Diagnoses Not on filedocumented in this encounter Additional Health Concerns Infection Onset Date Last Indicated Resolved Time COVID-19 Under Investigation 04/01/2020 04/01/2020 04/02/2020 2:40 PM ACCOUNT ADJUSTER COVID-19 Confirmed 04/01/2020 04/01/2020 11/27/202 0 4:34 AM ACCOUNT ADJUSTER documented as of this encounter Care Teams Surgery Assistant Relationship Specialty Start Date End Date Porsha Garrido MD [address] [place] [address] PCP - General 01/31/11 Porsha Garrido MD [address] [place] [address] PCP - Attributed-[employer] Commercial 09/13/18 11/01/19 Joselito Gold MD [address] [place] [address] PCP - Attributed-[employer] 07/15/19 08/14/19 Porsha Garrido MD [address] [place] [address] PCP - Attributed-[employer] 08/15/19 07/13/20 Jolie Marrero PA-C [address] [place] [phone] PCP - Attributed-[employer] 07/14/20 08/13/20 Porsha Garrido MD [address] [place] [address] PCP - Attributed-[employer] 08/14/20 12/29/21 Porsha Garrido MD [address] [place] [address] PCP - Attributed-[employer] Commercial 05/16/22 08/31/22 Porsha Garrido MD [address] [place] [address] [place] [address] PCP - Attributed-[employer] [place] Commercial 11/13/22 07/31/24 Porsha Garrido MD [address] [place] [address] PCP - Attributed-[employer] 10/29/16 09/14/17 Carina Rey MD [address] [place] [address] Obstetrics and Gynecology 10/27/11 07/14/20 Gary Burgess MD [address] [place] [address] Gastroenterology 08/22/13 Evelyn García, RN Warp Knit Operator 01/05/15 06/07/24 Joselito Gold MD [address] [place] [address] Obstetrics and Gynecology 07/15/20 5 Joselito Casarez MD [address] [place] [phone] Hematology and Oncology 09/03/22 05/26/23 Michelle Nogueira, TWITCHELL OPERATOR-SUBSTATION WIREMAN [address] [place] [address] [place] [address] Nurse Practitioner Nurse Practitioner Adult Health 09/03/22 Paloma Romo Care Coordination Specialist Care Management 12/13/23 12/13/23 Marjorie Weston DO [address] [facility] [address] [place] [address] Rheumatology 05/31/24 documented as of this encounter
--- OUTSIDE RECORDS SUMMARY | 2024-09-11 08:07 | XMS_ITS | Encounter Summary ---
Author Organization [facility] Address [address] [place] [address] Care Team Providers Care Resistor Tester Name Role Phone Porsha Garrido MD Primary Care Provider Encounter Details Date Type Department Care Team (Late st Contact Info) Description 12/27/2001 Outpatient Historical [facility] Pediatrics [place] [address] [facility] [place] [address] Deshawn Kitchen MD NO ADDRESS ON FILE Social History Tobacco Use Types Packs/Day Years Used Date Smoking Tobacco: Never Assessed Comments Unknown Sex and Gender Information Value Date Recorded Sex Assigned at Not on file Legal Sex Female 3:08 AM GRANTS AND CONTRACTS ASSISTANT Gender Identity Not on file Sexual Orientation Not on file documented as of this encounter Plan of Treatment Upcoming Encounters Date Type Department Care Team (Latest Contact Info) Description 09/12/2024 12:00 PM CDT Hospital Encounter [facility] Endoscopy [facility] [address] [place] [address] [address] [place] [address] Gary Burgess MD [address] [facility] [address] [id number] [place] [address] Abdominal pain 09/12/2024 12:00 PM CDT - 09/12/2024 12:30 PM CDT Surgery [facility] [address] [place] [address] Gary Burgess MD [address] [id number] [place] [address] ESOPHAGOGASTRODUODENOSCOPY 06/25/2025 3:10 PM GRANTS AND CONTRACTS ASSISTANT Office Visit [facility] Gastroenterology [place] [address] [place] [address] Gary Burgess MD [address] [id number] [place] [address] 08/08/2025 10:30 AM CDT Office Visit [facility] Neurology [address] [place] [address] Rama De La Paz MD [address] [place] [address] Scheduled Procedures Name Priority Associated Diagnoses Date/Ti me ESOPHAGOGASTRODUODENOSCOPY Abdominal pain 09/12/2024 12:00 PM CDT documented as of this encounter Visit Diagnoses Not on filedocumented in this encounter Additional Health Concerns Infection Onset Date Last Indicated Resolved Time R/O C. diff 05/21/2020 05/21/2020 05/21/2020 1:01 PM GRANTS AND CONTRACTS ASSISTANT R/O C. diff 10/31/2021 10/30/2021 10/31/2021 3:51 PM CDT R/O C. diff 09/01/2022 08/31/2022 09/01/2022 5:17 PM CDT documented as of this encounter Care Teams Resistor Tester Relationship Specialty Start Date End Date Porsha Garrido MD [address] [place] [address] PCP - General 03/04/09 documented as of this encounter
--- OUTSIDE RECORDS SUMMARY | 2024-09-11 08:07 | XMS_ITS | Encounter Summary ---
Author Organization [facility] Address [address] [place] [address] Care Team Providers Care Ambulance Driver Paramedic Name Role Phone Porsha Garrido MD Primary Care Provider Encounter Details Date Type Department Care Team (Late st Contact Info) Description 12/01/2000 Outpatient Historical [facility] Pediatrics [place] [address] [facility] [place] [address] Deshawn Kitchen MD NO ADDRESS ON FILE Social History Tobacco Use Types Packs/Day Years Used Date Smoking Tobacco: Never Assessed Comments Unknown Sex and Gender Information Value Date Recorded Sex Assigned at Not on file Legal Sex Female 3:08 AM RESERVOIR ENGINEERING MANAGER Gender Identity Not on file Sexual Orientation Not on file documented as of this encounter Plan of Treatment Upcoming Encounters Date Type Department Care Team (Latest Contact Info) Description 09/12/2024 12:00 PM CDT Hospital Encounter [facility] Endoscopy [facility] [address] [place] [address] [address] [place] [address] Gary Burgess MD [address] [facility] [address] [id number] [place] [address] Abdominal pain 09/12/2024 12:00 PM CDT - 09/12/2024 12:30 PM CDT Surgery [facility] [address] [place] [address] Gary Burgess MD [address] [id number] [place] [address] ESOPHAGOGASTRODUODENOSCOPY 06/25/2025 3:10 PM RESERVOIR ENGINEERING MANAGER Office Visit [facility] Gastroenterology [place] [address] [place] [address] Gary Burgess MD [address] [id number] [place] [address] 08/08/2025 10:30 AM CDT Office Visit [facility] Neurology [address] [place] [address] Rama De La Paz MD [address] [place] [address] Scheduled Procedures Name Priority Associated Diagnoses Date/Ti me ESOPHAGOGASTRODUODENOSCOPY Abdominal pain 09/12/2024 12:00 PM CDT documented as of this encounter Visit Diagnoses Not on filedocumented in this encounter Additional Health Concerns Infection Onset Date Last Indicated Resolved Time R/O C. diff 05/21/2020 05/21/2020 05/21/2020 1:01 PM RESERVOIR ENGINEERING MANAGER R/O C. diff 10/31/2021 10/30/2021 10/31/2021 3:51 PM CDT R/O C. diff 09/01/2022 08/31/2022 09/01/2022 5:17 PM CDT documented as of this encounter Care Teams Ambulance Driver Paramedic Relationship Specialty Start Date End Date Porsha Garrido MD [address] [place] [address] PCP - General 03/04/09 documented as of this encounter
--- OUTSIDE RECORDS SUMMARY | 2024-09-11 08:07 | XMS_ITS | Encounter Summary ---
Author Organization [facility] Address [address] [place] [address] Care Team Providers Care Technology And Engineering Teacher Name Role Phone Porsha Garrido MD Primary Care Provider Encounter Details Date Type Department Care Team (Late st Contact Info) Description 05/11/2002 Outpatient Historical [facility] Pediatrics [place] [address] [facility] [place] [address] [place] [address] Deshawn Kitchen MD NO ADDRESS ON FILE Social History Tobacco Use Types Packs/Day Years Used Date Smoking Tobacco: Never Assessed Comments Unknown Sex and Gender Information Value Date Recorded Sex Assigned at Not on file Legal Sex Female 3:08 AM INPATIENT SERVICES DIRECTOR Gender Identity Not on file Sexual Orientation Not on file documented as of this encounter Plan of Treatment Upcoming Encounters Date Type Department Care Team (Latest Contact Info) Description 09/12/2024 12:00 PM CDT Hospital Encounter [facility] [address] [place] [address] [address] [place] [address] Gary Burgess MD [address] [facility] [id number] [place] [address] Abdominal pain 09/12/2024 12:00 PM CDT - 09/12/2024 12:30 PM CDT Surgery [facility] [address] [place] [address] Gary Burgess MD [address] [id number] [place] [address] ESOPHAGOGASTRODUODENOSCOPY 06/25/2025 3:10 PM INPATIENT SERVICES DIRECTOR Office Visit [facility] Gastroenterology [place] [address] [place] [address] Gary Burgess MD [address] [id number] [place] [address] 08/08/2025 10:30 AM CDT Office Visit [facility] Neurology [address] [place] [address] Rama De La Paz MD [address] [place] [address] Scheduled Procedures Name Priority Associated Diagnoses Date/Ti me ESOPHAGOGASTRODUODENOSCOPY Abdominal pain 09/12/2024 12:00 PM CDT documented as of this encounter Visit Diagnoses Not on filedocumented in this encounter Additional Health Concerns Infection Onset Date Last Indicated Resolved Time R/O C. diff 05/21/2020 05/21/2020 05/21/2020 1:01 PM INPATIENT SERVICES DIRECTOR R/O C. diff 10/31/2021 10/30/2021 10/31/2021 3:51 PM CDT R/O C. diff 09/01/2022 08/31/2022 09/01/2022 5:17 PM CDT documented as of this encounter Care Teams Technology And Engineering Teacher Relationship Specialty Start Date End Date Porsha Garrido MD [address] [place] [address] PCP - General 03/04/09 documented as of this encounter
--- OUTSIDE RECORDS SUMMARY | 2024-09-11 08:07 | XMS_ITS | Encounter Summary ---
Author Organization [facility] Address [address] [place] [address] Care Team Providers Care Bat Lathe Operator Name Role Phone Porsha Garrido MD Primary Care Provider Encounter Details Date Type Department Care Team (Late st Contact Info) Description 06/25/1998 Outpatient Historical [facility] Pediatrics [place] [address] [facility] [place] [phone] Deshawn Kitchen MD NO ADDRESS ON FILE Social History Tobacco Use Types Packs/Day Years Used Date Smoking Tobacco: Never Assessed Comments Unknown Sex and Gender Information Value Date Recorded Sex Assigned at Not on file Legal Sex Female 3:08 AM SCISSORS SHARPENER Gender Identity Not on file Sexual Orientation Not on file documented as of this encounter Plan of Treatment Upcoming Encounters Date Type Department Care Team (Latest Contact Info) Description 09/12/2024 12:00 PM CDT Hospital Encounter [facility] Endoscopy [facility] [address] [place] [address] [address] [place] [address] Gary Burgess MD [address] [facility] [address] [id number] [place] [address] Abdominal pain 09/12/2024 12:00 PM CDT - 09/12/2024 12:30 PM CDT Surgery [facility]oscopy [facility] [address] [place] [address] Gary Burgess MD [address] [id number] [place] [address] ESOPHAGOGASTRODUODENOSCOPY 06/25/2025 3:10 PM SCISSORS SHARPENER Office Visit [facility] Gastroenterology [place] [address] [place] [address] Gary Burgess MD [address] [id number] [place] [address] 08/08/2025 10:30 AM CDT Office Visit [facility] Neurology [address] [place] [address] Rama De La Paz MD [address] [place] [address] Scheduled Procedures Name Priority Associated Diagnoses Date/Ti me ESOPHAGOGASTRODUODENOSCOPY Abdominal pain 09/12/2024 12:00 PM CDT documented as of this encounter Visit Diagnoses Not on filedocumented in this encounter Additional Health Concerns Infection Onset Date Last Indicated Resolved Time R/O C. diff 05/21/2020 05/21/2020 05/21/2020 1:01 PM SCISSORS SHARPENER R/O C. diff 10/31/2021 10/30/2021 10/31/2021 3:51 PM CDT R/O C. diff 09/01/2022 08/31/2022 09/01/2022 5:17 PM CDT documented as of this encounter Care Teams Bat Lathe Operator Relationship Specialty Start Date End Date Porsha Garrido MD [address] [place] [address] PCP - General 03/04/09 documented as of this encounter
--- OUTSIDE RECORDS SUMMARY | 2024-09-11 08:07 | XMS_ITS | Encounter Summary ---
Author Organization [facility] Address [address] [place] [address] Care Team Providers Care Ski Topper Name Role Phone Porsha Garrido MD Primary Care Provider Encounter Details Date Type Department Care Team (Late st Contact Info) Description 05/10/2001 Outpatient Historical [facility] Pediatrics [place] [address] [facility] [place] [address] [place] [phone] Deshawn Kitchen MD NO ADDRESS ON FILE Social History Tobacco Use Types Packs/Day Years Used Date Smoking Tobacco: Never Assessed Comments Unknown Sex and Gender Information Value Date Recorded Sex Assigned at Not on file Legal Sex Female 3:08 AM COOK DINNER Gender Identity Not on file Sexual Orientation Not on file documented as of this encounter Plan of Treatment Upcoming Encounters Date Type Department Care Team (Latest Contact Info) Description 09/12/2024 12:00 PM CDT Hospital Encounter [facility] Endoscopy [facility] [id number] [place] [address] [address] [place] [address] Gary Burgess MD [address] [facility] [address] [id number] [place] [address] Abdominal pain 09/12/2024 12:00 PM CDT - 09/12/2024 12:30 PM CDT Surgery [facility] Endoscopy Center [facility] [address] [place] [phone] Gary Burgess MD [address] [id number] [place] [address] ESOPHAGOGASTRODUODENOSCOPY 06/25/2025 3:10 PM COOK DINNER Office Visit [facility] Gastroenterology [place] [address] [place] [address] Gary Burgess MD [address] [id number] [place] [address] 08/08/2025 10:30 AM CDT Office Visit [facility] Neurology [address] [place] [address] Rama De La Paz MD [address] [place] [address] Scheduled Procedures Name Priority Associated Diagnoses Date/Ti me ESOPHAGOGASTRODUODENOSCOPY Abdominal pain 09/12/2024 12:00 PM CDT documented as of this encounter Visit Diagnoses Not on filedocumented in this encounter Additional Health Concerns Infection Onset Date Last Indicated Resolved Time R/O C. diff 05/21/2020 05/21/2020 05/21/2020 1:01 PM COOK DINNER R/O C. diff 10/31/2021 10/30/2021 10/31/2021 3:51 PM CDT R/O C. diff 09/01/2022 08/31/2022 09/01/2022 5:17 PM CDT documented as of this encounter Care Teams Ski Topper Relationship Specialty Start Date End Date Porsha Garrido MD [address] [place] [address] PCP - General 03/04/09 documented as of this encounter
--- OUTSIDE RECORDS SUMMARY | 2024-09-11 08:07 | XMS_ITS | Encounter Summary ---
Author Organization [facility] Address [address] [place] [address] Care Team Providers Care Drapery Hand Name Role Phone Porsha Garrido MD Primary Care Provider Encounter Details Date Type Department Care Team (Late st Contact Info) Description 08/07/2001 Outpatient Historical [facility] Pediatrics [place] [address] [facility] [place] [phone] Deshawn Kitchen MD NO ADDRESS ON FILE Social History Tobacco Use Types Packs/Day Years Used Date Smoking Tobacco: Never Assessed Comments Unknown Sex and Gender Information Value Date Recorded Sex Assigned at Not on file Legal Sex Female 3:08 AM RECOIL SPRING WINDER Gender Identity Not on file Sexual Orientation Not on file documented as of this encounter Plan of Treatment Upcoming Encounters Date Type Department Care Team (Latest Contact Info) Description 09/12/2024 12:00 PM CDT Hospital Encounter [facility] Endoscopy [facility] [address] [place] [address] [address] [place] [address] Gary Burgess MD [address] [facility] [address] [id number] [place] [address] Abdominal pain 09/12/2024 12:00 PM CDT - 09/12/2024 12:30 PM CDT Surgery [facility] Endoscopy Center [facility] [address] [place] [address] Gary Burgess MD [address] [id number] [place] [address] ESOPHAGOGASTRODUODENOSCOPY 06/25/2025 3:10 PM RECOIL SPRING WINDER Office Visit [facility] Gastroenterology [place] [address] [place] [address] Gary Burgess MD [address] [id number] [place] [address] 08/08/2025 10:30 AM CDT Office Visit [facility] Neurology [address] [place] [address] Rama De La Paz MD [address] [place] [address] Scheduled Procedures Name Priority Associated Diagnoses Date/Ti me ESOPHAGOGASTRODUODENOSCOPY Abdominal pain 09/12/2024 12:00 PM CDT documented as of this encounter Visit Diagnoses Not on filedocumented in this encounter Additional Health Concerns Infection Onset Date Last Indicated Resolved Time R/O C. diff 05/21/2020 05/21/2020 05/21/2020 1:01 PM RECOIL SPRING WINDER R/O C. diff 10/31/2021 10/30/2021 10/31/2021 3:51 PM CDT R/O C. diff 09/01/2022 08/31/2022 09/01/2022 5:17 PM CDT documented as of this encounter Care Teams Drapery Hand Relationship Specialty Start Date End Date Porsha Garrido MD [address] [place] [address] PCP - General 03/04/09 documented as of this encounter
--- OUTSIDE RECORDS SUMMARY | 2024-09-11 08:07 | XMS_ITS | Encounter Summary ---
Author Organization [facility] Address [address] [place] [address] Care Team Providers Care City Carrier Name Role Phone Porsha Garrido MD Primary Care Provider [phone] Encounter Details Date Type Department Care Team (Late st Contact Info) Description 04/18/2000 Outpatient Historical [facility] Pediatrics [place] [address] [facility] [place] [address] [place] [address] Deshawn Kitchen MD NO ADDRESS ON FILE Social History Tobacco Use Types Packs/Day Years Used Date Smoking Tobacco: Never Assessed Comments Unknown Sex and Gender Information Value Date Recorded Sex Assigned at Not on file Legal Sex Female 3:08 AM LADLE LINER HELPER Gender Identity Not on file Sexual Orientation Not on file documented as of this encounter Plan of Treatment Upcoming Encounters Date Type Department Care Team (Latest Contact Info) Description 09/12/2024 12:00 PM CDT Hospital Encounter [facility] Endoscopy [facility] [address] [place] [address] [address] [place] [address] Gary Burgess MD [address] [facility] [address] [id number] [place] [address] Abdominal pain 09/12/2024 12:00 PM CDT - 09/12/2024 12:30 PM CDT Surgery [facility] Endoscopy Center [facility] [address] [place] [address] Gary Burgess MD [address] [id number] [place] [address] ESOPHAGOGASTRODUODENOSCOPY 06/25/2025 3:10 PM LADLE LINER HELPER Office Visit [facility] Gastroenterology [place] [address] [place] [address] Gary Burgess MD [address] [id number] [place] [address] 08/08/2025 10:30 AM CDT Office Visit [facility] Neurology [address] [place] [address] Rama De La Paz MD [address] [place] [address] Scheduled Procedures Name Priority Associated Diagnoses Date/Ti me ESOPHAGOGASTRODUODENOSCOPY Abdominal pain 09/12/2024 12:00 PM CDT documented as of this encounter Visit Diagnoses Not on filedocumented in this encounter Additional Health Concerns Infection Onset Date Last Indicated Resolved Time R/O C. diff 05/21/2020 05/21/2020 05/21/2020 1:01 PM LADLE LINER HELPER R/O C. diff 10/31/2021 10/30/2021 10/31/2021 3:51 PM CDT R/O C. diff 09/01/2022 08/31/2022 09/01/2022 5:17 PM CDT documented as of this encounter Care Teams City Carrier Relationship Specialty Start Date End Date Porsha Garirdo MD [address] [place] [address] PCP - General 03/04/09 documented as of this encounter
--- OUTSIDE RECORDS SUMMARY | 2024-09-11 08:07 | XMS_ITS | Encounter Summary ---
Author Organization [facility] Address [address] [place] [address] Care Team Providers Care Senior Business Process Analyst Name Role Phone Porsha Garrido MD Primary Care Provider Encounter Details Date Type Department Care Team (Late st Contact Info) Description 03/20/2001 Outpatient Historical [facility] Pediatrics [place] [address] [facility] [place] [phone] Deshawn Kitchen MD NO ADDRESS ON FILE Social History Tobacco Use Types Packs/Day Years Used Date Smoking Tobacco: Never Assessed Comments Unknown Sex and Gender Information Value Date Recorded Sex Assigned at Not on file Legal Sex Female 3:08 AM LIVE IN CAREGIVER Gender Identity Not on file Sexual Orientation Not on file documented as of this encounter Plan of Treatment Upcoming Encounters Date Type Department Care Team (Latest Contact Info) Description 09/12/2024 12:00 PM CDT Hospital Encounter [facility] Endoscopy [facility] [address] [place] [address] [address] [place] [address] Gary Burgess MD [address] [facility] [address] [id number] [place] [address] Abdominal pain 09/12/2024 12:00 PM CDT - 09/12/2024 12:30 PM CDT Surgery [facility] Endoscopy Center [facility] [address] [place] [address] Gary Burgess MD [address] [id number] [place] [address] ESOPHAGOGASTRODUODENOSCOPY 06/25/2025 3:10 PM LIVE IN CAREGIVER Office Visit [facility] Gastroenterology [place] [address] [place] [address] Gary Burgess MD [address] [id number] [place] [address] 08/08/2025 10:30 AM CDT Office Visit [facility] Neurology [address] [place] [address] Rama De La Paz MD [address] [place] [address] Scheduled Procedures Name Priority Associated Diagnoses Date/Ti me ESOPHAGOGASTRODUODENOSCOPY Abdominal pain 09/12/2024 12:00 PM CDT documented as of this encounter Visit Diagnoses Not on filedocumented in this encounter Additional Health Concerns Infection Onset Date Last Indicated Resolved Time R/O C. diff 05/21/2020 05/21/2020 05/21/2020 1:01 PM LIVE IN CAREGIVER R/O C. diff 10/31/2021 10/30/2021 10/31/2021 3:51 PM CDT R/O C. diff 09/01/2022 08/31/2022 09/01/2022 5:17 PM CDT documented as of this encounter Care Teams Senior Business Process Analyst Relationship Specialty Start Date End Date Porsha Garrido MD [address] [place] [address] PCP - General 03/04/09 documented as of this encounter
--- OUTSIDE RECORDS SUMMARY | 2024-09-11 08:08 | XMS_ITS | Encounter Summary ---
Author Organization [facility] Address [address] [place] [address] Care Team Providers Care Steamer Tender Name Role Phone Porsha aGrrido MD Primary Care Provider Encounter Details Date Type Department Care Team (Late st Contact Info) Description 04/01/2005 Outpatient Historical [facility] [place] [address] [place] [phone] ABDOMINAL PAIN UNSPEC SITE (Primary Dx) Social History Tobacco Use Types Packs/Day Years Used Date Smoking Tobacco: Never Assessed Comments Unknown Sex and Gender Information Value Date Recorded Sex Assigned at Not on file Legal Sex Female 3:08 AM SUPERVISING PRODUCER Gender Identity Not on file Sexual Orientation Not on file documented as of this encounter Plan of Treatment Upcoming Encounters Date Type Department Care Team (Latest Contact Info) Description 09/12/2024 12:00 PM CDT Hospital Encounter [facility] Endoscopy Center [address] [place] [address] Gary Burgess MD [address] [facility] [id number] [place] [address] Abdominal pain 09/12/2024 12:00 PM CDT - 09/12/2024 12:30 PM CDT Surgery [facility] Endoscopy Center [facility] [address] [place] [address] [address] [place] [address] Gary Burgess MD [address] [facility] [address] [id number] [place] [address] ESOPHAGOGASTRODUODENOSCOPY 06/25/2025 3:10 PM SUPERVISING PRODUCER Office Visit [facility] Gastroenterology [place] [address] [facility] [address] [place] [address] Gary Burgess MD [address] [facility] [id number] [place] [address] 08/08/2025 10:30 AM CDT Office Visit [facility] Neurology [address] [facility] [address] [place] [address] Rama De La Paz MD [address] [facility] [address] [place] [address] Scheduled Procedures Name Priority Associated Diagnoses Date/Ti me ESOPHAGOGASTRODUODENOSCOPY Abdominal pain 09/12/2024 12:00 PM CDT documented as of this encounter Visit Diagnoses Diagnosis Abdominal pain, unspecified site- Primary Abdominal pain Abdominal pain, unspecified site documented in this encounter Additional Health Concerns Infection Onset Date Last Indicated Resolved Time R/O C. diff 05/21/2020 05/21/2020 05/21/2020 1:01 PM SUPERVISING PRODUCER R/O C. diff 10/31/2021 10/30/2021 10/31/2021 3:51 PM CDT R/O C. diff 09/01/2022 08/31/2022 09/01/2022 5:17 PM CDT documented as of this encounter Care Teams Steamer Tender Relationship Specialty Start Date End Date Porsha Garrido MD [address] [place] [address] PCP - General 03/04/09 documented as of this encounter
--- OUTSIDE RECORDS SUMMARY | 2024-09-11 08:08 | XMS_ITS | Encounter Summary ---
Author Organization [facility] Address [address] [place] [address] Care Team Providers Care Special Collections Librarian Name Role Phone Porsha Garrido MD Primary Care Provider Encounter Details Date Type Department Care Team (Late st Contact Info) Description 12/12/2003 Outpatient Historical [facility] [address] [facility] [place] [address] Deshawn Kitchen MD NO ADDRESS ON FILE Social History Tobacco Use Types Packs/Day Years Used Date Smoking Tobacco: Never Assessed Comments Unknown Sex and Gender Information Value Date Recorded Sex Assigned at Not on file Legal Sex Female 3:08 AM CONTROL PANEL ASSEMBLER Gender Identity Not on file Sexual Orientation [...] Description 09/12/2024 12:00 PM CDT Hospital Encounter [facility] Endoscopy [facility] [address] [place] [address] [address] [place] [address] Gary Burgess MD [address] [facility] [id number] [place] [address] Abdominal pain 09/12/2024 12:00 PM CDT - 09/12/2024 12:30 PM CDT Surgery [facility] Endoscopy [facility] [address] [place] [address] [address] [place] [address] Gary Burgess MD [address] [facility] [id number] [place] [address] ESOPHAGOGASTRODUODENOSCOPY 06/25/2025 3:10 PM CONTROL PANEL ASSEMBLER Office Visit [facility] Gastroenterology [place] [address] [facility] [address] [place] [address] Gary Burgess MD [address] [facility] [id number] [place] [address] 08/08/2025 10:30 AM CDT Office Visit [facility] Neurology [address] [facility] [address] [place] [address] Rama De La Paz MD [address] [facility] [address] [place] [address] Scheduled Procedures Name Priority Associated Diagnoses Date/Ti me ESOPHAGOGASTRODUODENOSCOPY Abdominal pain 09/12/2024 12:00 PM CDT documented as of this encounter Visit Diagnoses Not on filedocumented in this encounter Additional Health Concerns Infection Onset Date Last Indicated Resolved Time R/O C. diff 05/21/2020 05/21/2020 05/21/2020 1:01 PM CONTROL PANEL ASSEMBLER R/O C. diff 10/31/2021 10/30/2021 10/31/2021 3:51 PM CDT R/O C. diff 09/01/2022 08/31/2022 09/01/2022 5:17 PM CDT documented as of this encounter Care Teams Special Collections Librarian Relationship Specialty Start Date End Date Porsha Garrido MD [address] [address] PCP - General 03/04/09 documented as of this encounter
--- OUTSIDE RECORDS SUMMARY | 2024-09-11 08:08 | XMS_ITS | Encounter Summary ---
Author Organization [facility] Address [address] [place] [address] Care Team Providers Care Graining Machine Operator Name Role Phone Porsha Garrido MD Primary Care Provider Encounter Details Date Type Department Care Team (Latest Contact Info) Description 07/23/2008 Outpatient Historical [facility] Gilbert Faye MD NO ADDRESS ON FILE Lumbago; Unspecified Asthma; Esophageal Reflux Social History Tobacco Use Types Packs/Day Years Used Date Smoking Tobacco: Never Assessed Comments Unknown Sex and Gender Information Value Date Recorded Sex Assigned at Not on file Legal Sex Female 3:08 AM SERVICE LEARNING COORDINATOR Gender Identity Not on file Sexual Orientation Not on file documented as of this encounter Plan of Treatment Upcoming Encounters Date Type Department Care Team (Latest Contact Info) Description 09/12/2024 12:00 PM CDT Hospital Encounter [facility] Endoscopy [address] [place] [address] Gary Burgess MD [address] [facility] [id number] [place] [address] Abdominal pain 09/12/2024 12:00 PM CDT - 09/12/2024 12:30 PM CDT Surgery [facility] Endoscopy [address] [place] [address] Gary Burgess MD [address] [facility] [id number] [place] [address] ESOPHAGOGASTRODUODENOSCOPY 06/25/2025 3:10 PM SERVICE LEARNING COORDINATOR Office Visit [facility] Gastroenterology [facility] [address] [facility] [address] [place] [address] Gary Burgess MD [address] [facility] [id number] [place] [address] 08/08/2025 10:30 AM CDT Office Visit [facility] [address] [facility] [address] [place] [address] Rama De La Paz MD [address] [facility] [address] [place] [address] Scheduled Procedures Name Priority Associated Diagnoses Date/Ti me ESOPHAGOGASTRODUODENOSCOPY Abdominal pain 09/12/2024 12:00 PM CDT documented as of this encounter Visit Diagnoses Diagnosis Lumbago Unspecified asthma(493.90) Unspecified asthma Esophageal reflux Abdominal pain Abdominal pain, unspecified site documented in this encounter Additional Health Concerns Infection Onset Date Last Indicated Resolved Time R/O C. diff 05/21/2020 05/21/2020 05/21/2020 1:01 PM SERVICE LEARNING COORDINATOR R/O C. diff 10/31/2021 10/30/2021 10/31/2021 3:51 PM CDT R/O C. diff 09/01/2022 08/31/2022 09/01/2022 5:17 PM CDT documented as of this encounter Care Teams Graining Machine Operator Relationship Specialty Start Date End Date Porsha Garrido MD [address] [place] [address] PCP - General 03/04/09 documented as of this encounter
--- OUTSIDE RECORDS SUMMARY | 2024-09-11 08:08 | XMS_ITS | Clinical Summary ---
Author Organization [facility] Address [address] [place] [address] Phone Care Team Providers Care Underwriting Clerk Name Role Phone Porsha Garrido MD Primary Care Provider [phone] Allergies Active Allergy Reactions Criticality Noted Date Comments Azithromycin Unknown Doxycycline Hcl Rash Low 02/11/2015 Sulfa (Sulfonamide Antibiotics) Other (See Comments),Rash Medium 02/04/2009 Unknown ask Medications valACYclovir 500 mg tablet Take 500 mg by mouth daily. Active cetirizine HCl (ZYRTEC ORAL) Take by mouth. A ctive fluticasone propionate (FLONASE) 50 mcg/spray Hye, Suspension nasal inhaler Administer 2 Sprays in each nostril daily. Active ALPRAZolam (XANAX) 0.5 mg tablet TAKE 1 TABLET BY MOUTH THREE TIMES A DAY NEEDED FOR ANXIETY 2 Active vedolizumab (ENTYVIO IV) Inject by intravenous injection. Active budesonide-formo teroL (SYMBICORT) 80-4.5 mcg/actuation HFA Aerosol Inhaler Take 2 Puffs by inhalation 2 times daily. Active albuterol (PROVENTIL,MEGHA ZEHCARIAH) 0.63 mg/3 mL Solution for Nebulization Take 0.63 mg by inhalation one time only. Active hyoscyamine 0.[address] 1 TABLET (0.125 MG) UNDER TONGUE 4 TIMES DAILY NEEDED FOR SPASM. 120 Tablet 5 4 Active DULoxetine (CYMBALTA) 60 mg Capsule, Delayed Release(E.C.) Take 60 mg by mouth daily. 5 Active pantoprazole (PROTONIX) 40 mg Tablet, Delayed Release (E.C.)Indication s:Gastroesophage al reflux disease, unspecified whether esophagitis present Take 1 Tablet (40 mg) by mouth daily. 90 Tablet 3 5 Active baclofen (LIORESAL) 5 mg tablet Take 1 Tablet (5 mg) by mouth 1 time daily as needed for Pain. 30 Tablet 2 5 Active rizatriptan (MAXALT) 10 mg Tablet Take 1 Tablet (10 mg) by mouth one time as needed for Migraine. may repeat in 2 hours; max dose 20mg in 24 hours 9 Tablet 11 5 Active escitalopram oxalate (LEXAPRO) 10 mg tablet Take 10 mg by mouth daily. Active Active Problems Problem Noted Date Diagnosed [...] Type Department Care Team Description 08/23/2024 Telephone [facility] Gastroenterology [facility] [address] [place] [address] Urszula Oswald RN 10-days Late for Entyvio Infusion 08/13/2024 Abstract [facility] Gastroenterology [facility] [address] [place] [address] Katie Richardson 08/08/2024 11:00 AM CDT Office Visit [facility] Neurology [facility] [address] [facility] [address] [place] [address] Rama De La Paz MD Intractable migraine with aura without status migrainosus (Primary Dx) 08/01/2024 External Device Data ST[facility] ABSTRACTION Provider, Abstract 08/01/2024 External Device Data [facility] ABSTRACTION Provider, Abstract 07/21/2024 External Device Data [facility] ABSTRACTION Provider, Abstract 07/20/2024 External Device Data [facility] ABSTRACTION Provider, Abstract 07/18/2024 External Device Data [facility] ABSTRACTION Provider, Abstract 06/26/2024 2:40 PM LAB AID Office Visit [facility] Gastroenterology [place] [address] [place] [address] Gary Burgess MD Ulcerative rectosigmoiditis without complication [...] on file Legal Sex Female 3:08 AM LAB AID Gender Identity Not on file Sexual Orientation Not on file Last Filed Vital Signs Vital Sign Reading Time Taken Comments Blood Pressure 102/66 08/08/2024 10:58 AM CDT Pulse 76 08/08/2024 10:58 AM CDT Temperature 36.3 C (97.4 F) 08/12/2023 12:42 PM CDT Respiratory Rate 24 08/12/2023 12:58 PM CDT Oxygen Saturation 98% 08/08/2024 10:58 AM CDT Inhaled Oxygen Concentration - - Weight 83.5 kg (184 lb) 09/07/2024 11:36 AM CDT Height 172.7 cm (5' 8 ) 09/07/2024 11:36 AM CDT Body Mass Index 27.98 09/07/2024 11:36 AM CDT Plan of Treatment Upcoming Encounters Date Type Department Care Team (Latest Contact Info) Description 09/12/2024 12:00 PM CDT Hospital Encounter [facility] Endoscopy [address] [place] [phone] Gary Burgess MD [address] [id number] [place] [address] Abdominal pain 09/12/2024 12:00 PM CDT - 09/12/2024 12:30 PM CDT Surgery [facility] [address] [place] [address] Gary Burgess MD [address] [facility] [id number] [place] [address] ESOPHAGOGASTRODUODENOSCOPY 06/25/2025 3:10 PM LAB AID Office Visit [facility] Gastroenterology [place] [address] [address] [place] [address] Gary Burgess MD [address] [facility] [id number] [place] [address] 08/08/2025 10:30 AM CDT Office Visit [facility] Neurology [address] [facility] [address] [place] [address] Rama De La Paz MD [address] [facility] [address] [place] [address] Scheduled Procedures Name Priority Associated Diagnoses Date/Ti me ESOPHAGOGASTRODUODENOSCOPY Abdominal pain 09/12/2024 12:00 PM CDT Health Maintenance Due Date Last Done Comments [...] patient's age to complete this topic Insurance [employer] CHOICE FUND OA PLUS Advance Directives For more information, please contact: [phone] * Full Code (Latest Code Status on [...] 10:42 AM 02/06/2009 2:10 AM Care Teams Underwriting Clerk Relationship Specialty [place] [address] [place] [id number] [facility] - General 03/04/09
--- OUTSIDE RECORDS SUMMARY | 2024-09-11 08:08 | XMS_ITS | Encounter Summary ---
Author Organization [facility] Address [address] [place] [address] Care Team Providers Care Contract Serviceman Name Role Phone Porsha Garrido MD Primary Care Provider Encounter Details Date Type Department Care Team (Late st Contact Info) Description 07/31/2004 Outpatient Historical [facility] Pediatrics [facility] [place] [address] [place] [address] Deshawn Kitchen MD NO ADDRESS ON FILE Social History Tobacco Use Types Packs/Day Years Used Date Smoking Tobacco: Never Assessed Comments Unknown Sex and Gender Information Value Date Recorded Sex Assigned at Not on file Legal Sex Female 3:08 AM DIRECTOR TOXICOLOGY Gender Identity Not on file Sexual Orientation Not on file documented as of this encounter Last Filed Vital Signs Vital Sign Reading Time Taken Comments Blood Pressure - - Pulse - - Temperature - - Respiratory Rate - - Oxygen Saturation - - Inhaled Oxygen Concentration - - Weight 48.3 kg (106 lb 6 oz) 07/31/2004 9:12 AM DIRECTOR TOXICOLOGY Height 168.3 cm (5' 6.25 ) 07/31/2004 9:12 AM CS T Body Mass Index 17.04 07/31/2004 9:12 AM DIRECTOR TOXICOLOGY Body Mass Index Percentile 3.83% 07/31/2004 9:1 2 AM DIRECTOR TOXICOLOGY Growth Chart: CDC (Girls, 2- 20 Years) documented in this encounter Plan of Treatment Upcoming Encounters Date Type Department Care Team (Latest Contact Info) Description 09/12/2024 12:00 PM CDT Hospital Encounter [facility] Endoscopy [facility] [id number] [place] [address] [address] [place] [address] Gary Burgess MD [address] [facility] [id number] [place] [address] Abdominal pain 09/12/2024 12:00 PM CDT - 09/12/2024 12:30 PM CDT Surgery [facility] Endoscopy [facility] [address] [place] [address] [address] [place] [address] Gary Burgess MD [address] [facility] [id number] [place] [address] ESOPHAGOGASTRODUODENOSCOPY 06/25/2025 3:10 PM DIRECTOR TOXICOLOGY Office Visit [facility] Gastroenterology [place] [address] [facility] [address] [place] [address] Gary Burgess MD [address] [facility] [id number] [place] [address] 08/08/2025 10:30 AM CDT Office Visit [facility] Neurology [address] [facility] [address] [place] [address] Rama De La Paz MD [address] [facility] [address] [place] [address] Scheduled Procedures Name Priority Associated Diagnoses Date/Ti me ESOPHAGOGASTRODUODENOSCOPY Abdominal pain 09/12/2024 12:00 PM CDT documented as of this encounter Visit Diagnoses Not on filedocumented in this encounter Additional Health Concerns Infection Onset Date Last Indicated Resolved Time R/O C. diff 05/21/2020 05/21/2020 05/21/2020 1:01 PM DIRECTOR TOXICOLOGY R/O C. diff 10/31/2021 10/30/2021 10/31/2021 3:51 PM CDT R/O C. diff 09/01/2022 08/31/2022 09/01/2022 5:17 PM CDT documented as of this encounter Care Teams Contract Serviceman Relationship Specialty Start Date End Date Porsha Garrido MD [address] [address] PCP - General 03/04/09 documented as of this encounter
--- OUTSIDE RECORDS SUMMARY | 2024-09-11 08:08 | XMS_ITS | Encounter Summary ---
Author Organization [facility] Address [address] [place] [address] Care Team Providers Care Hiv Nurse Name Role Phone Unavailable Primary Care Provider Unavailabl e Prior Encounters Date Type Department Care Team Description 01/31/2024 Travel 01/31/2024 2:00 PM CDT Office Visit [facility] [address] [place] [address] Princess Soto DDS Dental caries, unspecified (Primary Dx) 01/30/2024 10:00 AM CDT Office Visit [facility] [address] [place] [address] Princess Soto DDS Encounter for dental examination and cleaning without abnormal findings (Primary Dx); Dental caries, unspecified 07/18/2023 Travel 07/18/2023 2:30 PM PRUNE WASHER Office Visit [facility] [address] [place] [address] Princess Soto DDS Encounter for dental examination and cleaning without abnormal findings (Primary Dx) 12/02/2022 8:00 AM CDT Office Visit [facility] [address] [place] [address] Princess Soto DDS 02/18/2022 Travel 02/18/2022 4:00 PM CDT Office Visit [facility] [address] [place] [address] Princess Soto DDS 11/21/2020 Travel 11/21/2020 10:30 AM CDT Office Visit [facility] [address] [place], [place] [address] [address] Heri Napoles, [facility] 11/21/2020 10:15 AM CDT Office Visit [facility] [address] [place], [place] [address] [place] [phone] Javy Keita, SARAH 06/04/2019 Converted CPS Chart Documents [facility] [address] [place], [place] [address] [place] [phone] <No scans attached> 06/04/2019 Converted 13x Documents [facility] [address] [place], [place] [address] [place] [phone] <No scans attached> Last Filed Vital Signs [...] Care Team (Late st Contact Info) Description 10/24/2024 9:15 AM CDT Office Visit [facility] [address] [place] [phone] Anahi Leigh, DDS [address] [place] [address] [place] [address] Procedures Procedure Name Priority Date/Time Associated Diagnosis [...] OF FLUORIDE VARNISH Routine 07/18/2023 2:30 PM PRUNE WASHER PROPHYLAXIS - ADULT Routine 07/18/2023 2 :30 PM PRUNE WASHER Encounter for dental examination and cleaning without abnormal findings BITEWINGS - FOUR RADIOGRAPHIC IMAGES Routine 07/18/2023 2:30 PM PRUNE WASHER PERIODIC ORAL EVALUATION - ESTABLISHED PATIENT Routine 07/18/2023 2:30 PM PRUNE WASHER Encounter for dental examination and cleaning without [...] ORAL HYGIENE INSTRUCTIONS Routine 2019 2:00 AM PRUNE WASHER TOPICAL APPLICATION OF FLUORIDE VARNISH Routine 06/25/2019 2:00 AM PRUNE WASHER PROPHYLAXIS - ADULT Routine 06/25/2019 2 :00 AM PRUNE WASHER COMPREHENSIVE ORAL EVALUATION - NEW OR ESTABLISHED PATIENT Routine 06/25/2019 2:00 AM PRUNE WASHER PANORAMIC RADIOGRAPHIC IMAGE Routine 06/25/2019 2:00 AM PRUNE WASHER INTRAORAL - COMPREHENSIVE SERIES OF RADIOGRAPHIC IMAGES Routine 06/25/2019 2:00 AM PRUNE WASHER INTRAORAL PHOTO Routine 06/25/2019 2:00 AM PRUNE WASHER INTRAORAL PHOTO Routine 06/25/2019 2:00 AM PRUNE WASHER INTRAORAL PHOTO Routine 06/25/2019 2:00 AM PRUNE WASHER INTRAORAL PHOTO Routine 06/25/2019 2:00 AM PRUNE WASHER 30 O COMPOSITE FILLING Routine 0 2:00 AM PRUNE WASHER CANCELLED APPOINTMENT Routine 06/20/2019 2:00 AM PRUNE WASHER Visit Diagnoses Diagnosis Start Date Encounter for dental examination and cleaning without abnormal findings 07/18/2023 Encounter for dental examination and cleaning without abnormal findings 01/30/2024 Dental caries, unspecified 01/30/2024 Dental caries, unspecified 01/31/2024 Insurance PPO
--- OUTSIDE RECORDS SUMMARY | 2024-09-11 08:08 | XMS_ITS | Encounter Summary ---
Author Organization [facility] Address [address] [place] [address] Care Team Providers Care Store Sales Manager Name Role Phone Porsha Garrido MD Primary Care Provider Encounter Details Date Type Department Care Team (Late st Contact Info) Description 06/15/2002 Outpatient Historical [facility] Pediatrics [place] [address] [facility] [place] [address] [place] [address] Deshawn Kitchen MD NO ADDRESS ON FILE Social History Tobacco Use Types Packs/Day Years Used Date Smoking Tobacco: Never Assessed Comments Unknown Sex and Gender Information Value Date Recorded Sex Assigned at Not on file Legal Sex Female 3:08 AM PAIN MANAGEMENT PHYSICIAN Gender Identity Not on file Sexual Orientation Not on file documented as of this encounter Plan of Treatment Upcoming Encounters Date Type Department Care Team (Latest Contact Info) Description 09/12/2024 12:00 PM CDT Hospital Encounter [facility] Endoscopy [facility] [address] [place] [address] [address] [place] [address] Gary Burgess MD [address] [facility] [address] [id number] [place] [address] Abdominal pain 09/12/2024 12:00 PM CDT - 09/12/2024 12:30 PM CDT Surgery [facility] Endoscopy Center [facility] [address] [place] [address] Gary Burgess MD [address] [id number] [place] [address] ESOPHAGOGASTRODUODENOSCOPY 06/25/2025 3:10 PM PAIN MANAGEMENT PHYSICIAN Office Visit [facility] Gastroenterology [place] [address] [place] [address] Gary Burgess MD [address] [id number] [place] [address] 08/08/2025 10:30 AM CDT Office Visit [facility] Neurology [address] [place] [address] Rama De La Paz MD [address] [place] [address] Scheduled Procedures Name Priority Associated Diagnoses Date/Ti me ESOPHAGOGASTRODUODENOSCOPY Abdominal pain 09/12/2024 12:00 PM CDT documented as of this encounter Visit Diagnoses Not on filedocumented in this encounter Additional Health Concerns Infection Onset Date Last Indicated Resolved Time R/O C. diff 05/21/2020 05/21/2020 05/21/2020 1:01 PM PAIN MANAGEMENT PHYSICIAN R/O C. diff 10/31/2021 10/30/2021 10/31/2021 3:51 PM CDT R/O C. diff 09/01/2022 08/31/2022 09/01/2022 5:17 PM CDT documented as of this encounter Care Teams Store Sales Manager Relationship Specialty Start Date End Date Porsha Garrido MD [address] [place] [address] PCP - General 03/04/09 documented as of this encounter
--- OUTSIDE RECORDS SUMMARY | 2024-09-11 08:08 | XMS_ITS | Encounter Summary ---
Author Organization [facility] Address [address] [place] [address] Care Team Providers Care Spinning Lathe Operator Automatic Name Role Phone Porsha Garrido MD Primary Care Provider [phone] Encounter Details Date Type Department Care Team (Late st Contact Info) Description 12/10/2003 Outpatient Historical [facility] Pediatrics [place] [address] [facility] [place] [address] Eduardo Mason MD NO ADDRESS ON FILE Social History Tobacco Use Types Packs/Day Years Used Date Smoking Tobacco: Never Assessed Comments Unknown Sex and Gender Information Value Date Recorded Sex Assigned at Not on file Legal Sex Female 3:08 AM DISASSEMBLER Gender Identity Not on file Sexual Orientation Not on file documented as of this encounter Plan of Treatment Upcoming Encounters Date Type Department Care Team (Latest Contact Info) Description 09/12/2024 12:00 PM CDT Hospital Encounter [facility] [address] [place] [address] [address] [place] [address] Gary Burgess MD [address] [facility] [id number] [place] [address] Abdominal pain 09/12/2024 12:00 PM CDT - 09/12/2024 12:30 PM CDT Surgery [facility] Endoscopy Center [facility] [address] [place] [address] Gary Burgess MD [address] [id number] [place] [address] ESOPHAGOGASTRODUODENOSCOPY 06/25/2025 3:10 PM DISASSEMBLER Office Visit [facility] Gastroenterology [place] [address] [place] [address] Gary Burgess MD [address] [id number] [place] [address] 08/08/2025 10:30 AM CDT Office Visit [facility] Neurology [address] [place] [address] Rama De La Paz MD [address] [place] [address] Scheduled Procedures Name Priority Associated Diagnoses Date/Ti me ESOPHAGOGASTRODUODENOSCOPY Abdominal pain 09/12/2024 12:00 PM CDT documented as of this encounter Visit Diagnoses Not on filedocumented in this encounter Additional Health Concerns Infection Onset Date Last Indicated Resolved Time R/O C. diff 05/21/2020 05/21/2020 05/21/2020 1:01 PM DISASSEMBLER R/O C. diff 10/31/2021 10/30/2021 10/31/2021 3:51 PM CDT R/O C. diff 09/01/2022 08/31/2022 09/01/2022 5:17 PM CDT documented as of this encounter Care Teams Spinning Lathe Operator Automatic Relationship Specialty Start Date End Date Porsha Garrido MD [address] [place] [address] [place] [address] PCP - General 03/04/09 documented as of this encounter
--- OUTSIDE RECORDS SUMMARY | 2024-09-11 08:08 | XMS_ITS | Encounter Summary ---
Author Organization [facility] Address [address] [place] [address] Care Team Providers Care Aircraft Magneto Mechanic Name Role Phone Porsha Garrido MD Primary Care Provider Encounter Details Date Type Department Care Team (Late st Contact Info) Description 10/27/2005 Outpatient Historical [facility] Pediatrics [place] [address] [facility] [place] [address] Deshawn Kitchen MD NO ADDRESS ON FILE Social History Tobacco Use Types Packs/Day Years Used Date Smoking Tobacco: Never Assessed Comments Unknown Sex and Gender Information Value Date Recorded Sex Assigned at Not on file Legal Sex Female 3:08 AM HAND GRINDER Gender Identity Not on file Sexual Orientation Not on file documented as of this encounter Plan of Treatment Upcoming Encounters Date Type Department Care Team (Latest Contact Info) Description 09/12/2024 12:00 PM CDT Hospital Encounter [facility] Endoscopy [facility] [address] [place] [address] [address] [place] [address] Gary Burgess MD [address] [facility] [address] [id number] [place] [address] Abdominal pain 09/12/2024 12:00 PM CDT - 09/12/2024 12:30 PM CDT Surgery [facility] Endoscopy Center [facility] [address] [place] [address] Gary Burgess MD [address] [id number] [place] [address] ESOPHAGOGASTRODUODENOSCOPY 06/25/2025 3:10 PM HAND GRINDER Office Visit [facility] Gastroenterology [place] [address] [place] [address] Gary Burgess MD [address] [id number] [place] [address] 08/08/2025 10:30 AM CDT Office Visit [facility] Neurology [address] [place] [address] Rama De La Paz MD [address] [place] [address] Scheduled Procedures Name Priority Associated Diagnoses Date/Ti me ESOPHAGOGASTRODUODENOSCOPY Abdominal pain 09/12/2024 12:00 PM CDT documented as of this encounter Visit Diagnoses Not on filedocumented in this encounter Additional Health Concerns Infection Onset Date Last Indicated Resolved Time R/O C. diff 05/21/2020 05/21/2020 05/21/2020 1:01 PM HAND GRINDER R/O C. diff 10/31/2021 10/30/2021 10/31/2021 3:51 PM CDT R/O C. diff 09/01/2022 08/31/2022 09/01/2022 5:17 PM CDT documented as of this encounter Care Teams Aircraft Magneto Mechanic Relationship Specialty Start Date End Date Porsha Garrido MD [address] [place] [address] PCP - General 03/04/09 documented as of this encounter
--- OUTSIDE RECORDS SUMMARY | 2024-09-11 08:08 | XMS_ITS | Encounter Summary ---
Author Organization [facility] Address [address] [place] [address] Care Team Providers Care Letter Of Credit Document Examiner Name Role Phone Porsha Garrido MD Primary Care Provider Encounter Details Date Type Department Care Team (Late st Contact Info) Description 11/23/2004 Outpatient Historical [facility] Pediatrics [place] [address] [facility] [place] [address] [place] [address] Deshawn Kitchen MD NO ADDRESS ON FILE Social History Tobacco Use Types Packs/Day Years Used Date Smoking Tobacco: Never Assessed Comments Unknown Sex and Gender Information Value Date Recorded Sex Assigned at Not on file Legal Sex Female 3:08 AM EDGER HAND Gender Identity Not on file Sexual Orientation Not on file documented as of this encounter Plan of Treatment Upcoming Encounters Date Type Department Care Team (Latest Contact Info) Description 09/12/2024 12:00 PM CDT Hospital Encounter [facility] Endoscopy [facility] [address] [place] [address] [address] [place] [address] Gary Burgess MD [address] [facility] [address] [id number] [place] [address] Abdominal pain 09/12/2024 12:00 PM CDT - 09/12/2024 12:30 PM CDT Surgery [facility] Endoscopy Center [facility] [address] [place] [address] Gary Burgess MD [address] [id number] [place] [address] ESOPHAGOGASTRODUODENOSCOPY 06/25/2025 3:10 PM EDGER HAND Office Visit [facility] Gastroenterology [place] [address] [place] [address] Gary Burgess MD [address] [id number] [place] [address] 08/08/2025 10:30 AM CDT Office Visit [facility] Neurology [address] [place] [address] Rama De La Paz MD [address] [place] [address] Scheduled Procedures Name Priority Associated Diagnoses Date/Ti me ESOPHAGOGASTRODUODENOSCOPY Abdominal pain 09/12/2024 12:00 PM CDT documented as of this encounter Visit Diagnoses Not on filedocumented in this encounter Additional Health Concerns Infection Onset Date Last Indicated Resolved Time R/O C. diff 05/21/2020 05/21/2020 05/21/2020 1:01 PM EDGER HAND R/O C. diff 10/31/2021 10/30/2021 10/31/2021 3:51 PM CDT R/O C. diff 09/01/2022 08/31/2022 09/01/2022 5:17 PM CDT documented as of this encounter Care Teams Letter Of Credit Document Examiner Relationship Specialty Start Date End Date Porsha Garrido MD [address] [place] [address] PCP - General 03/04/09 documented as of this encounter
--- OUTSIDE RECORDS SUMMARY | 2024-09-11 08:08 | XMS_ITS | Encounter Summary ---
Author Organization [facility] Address [address] [place] [address] Care Team Providers Care Sock Lining Stitcher Name Role Phone Porsha Garrido MD Primary Care Provider Encounter Details Date Type Department Care Team (Late st Contact Info) Description 08/01/2002 Outpatient Historical [facility] Pediatric[facility] [place] [address] [facility] [place] [address] Deshawn Kitchen MD NO ADDRESS ON FILE Social History Tobacco Use Types Packs/Day Years Used Date Smoking Tobacco: Never Assessed Comments Unknown Sex and Gender Information Value Date Recorded Sex Assigned at Not on file Legal Sex Female 3:08 AM DEPOSITING MACHINE OPERATOR Gender Identity Not on file Sexual Orientation Not on file documented as of this encounter Plan of Treatment Upcoming Encounters Date Type Department Care Team (Latest Contact Info) Description 09/12/2024 12:00 PM CDT Hospital Encounter [facility] Endoscopy [facility] [address] [place] [address] [address] [place] [address] Gary Burgess MD [address] [facility] [address] [id number] [place] [address] Abdominal pain 09/12/2024 12:00 PM CDT - 09/12/2024 12:30 PM CDT Surgery [facility] [address] [place] [address] Gary Burgess MD [address] [id number] [place] [address] ESOPHAGOGASTRODUODENOSCOPY 06/25/2025 3:10 PM DEPOSITING MACHINE OPERATOR Office Visit [facility] Gastroenterology [place] [address] [place] [address] Gary Burgess MD [address] [id number] [place] [address] 08/08/2025 10:30 AM CDT Office Visit [facility] Neurology [address] [place] [address] Rama De La Paz MD [address] [place] [address] Scheduled Procedures Name Priority Associated Diagnoses Date/Ti me ESOPHAGOGASTRODUODENOSCOPY Abdominal pain 09/12/2024 12:00 PM CDT documented as of this encounter Visit Diagnoses Not on filedocumented in this encounter Additional Health Concerns Infection Onset Date Last Indicated Resolved Time R/O C. diff 05/21/2020 05/21/2020 05/21/2020 1:01 PM DEPOSITING MACHINE OPERATOR R/O C. diff 10/31/2021 10/30/2021 10/31/2021 3:51 PM CDT R/O C. diff 09/01/2022 08/31/2022 09/01/2022 5:17 PM CDT documented as of this encounter Care Teams Sock Lining Stitcher Relationship Specialty Start Date End Date Porsha Garrido MD [address] [place] [id number] PCP - General 03/04/09 documented as of this encounter
--- OUTSIDE RECORDS SUMMARY | 2024-09-11 08:08 | XMS_ITS | Encounter Summary ---
Author Organization [facility] Address [address] [place] [address] Care Team Providers Care Broke Beater Name Role Phone Porsha Garrido MD Primary Care Provider Encounter Details Date Type Department Care Team (Late st Contact Info) Description 07/16/2002 Outpatient Historical [facility] Pediatrics [place] [address] [facility] [place] [address] Deshawn Kitchen MD NO ADDRESS ON FILE Social History Tobacco Use Types Packs/Day Years Used Date Smoking Tobacco: Never Assessed Comments Unknown Sex and Gender Information Value Date Recorded Sex Assigned at Not on file Legal Sex Female 3:08 AM SHELL ASSEMBLER Gender Identity Not on file Sexual Orientation Not on file documented as of this encounter Plan of Treatment Upcoming Encounters Date Type Department Care Team (Latest Contact Info) Description 09/12/2024 12:00 PM CDT Hospital Encounter [facility] Endoscopy [facility] [address] [place] [address] [address] [place] [address] Gary Burgess MD [address] [facility] [address] [id number] [place] [address] Abdominal pain 09/12/2024 12:00 PM CDT - 09/12/2024 12:30 PM CDT Surgery [facility] Endoscopy Center [facility] [address] [place] [address] Gary Burgess MD [address] [id number] [place] [address] ESOPHAGOGASTRODUODENOSCOPY 06/25/2025 3:10 PM SHELL ASSEMBLER Office Visit [facility] Gastroenterology [place] [address] [place] [address] Gary Burgess MD [address] [id number] [place] [address] 08/08/2025 10:30 AM CDT Office Visit [facility] Neurology [address] [place] [address] Rama De La Paz MD [address] [place] [address] Scheduled Procedures Name Priority Associated Diagnoses Date/Ti me ESOPHAGOGASTRODUODENOSCOPY Abdominal pain 09/12/2024 12:00 PM CDT documented as of this encounter Visit Diagnoses Not on filedocumented in this encounter Additional Health Concerns Infection Onset Date Last Indicated Resolved Time R/O C. diff 05/21/2020 05/21/2020 05/21/2020 1:01 PM SHELL ASSEMBLER R/O C. diff 10/31/2021 10/30/2021 10/31/2021 3:51 PM CDT R/O C. diff 09/01/2022 08/31/2022 09/01/2022 5:17 PM CDT documented as of this encounter Care Teams Broke Beater Relationship Specialty Start Date End Date Porsha Garrido MD [address] [place] [address] PCP - General 03/04/09 documented as of this encounter
--- OUTSIDE RECORDS SUMMARY | 2024-09-11 08:08 | XMS_ITS | Encounter Summary ---
Author Organization [facility] Address [address] [place] [address] Care Team Providers Care Zanjero Name Role Phone Porsha Garrido MD Primary Care Provider [phone] Encounter Details Date Type Department Care Team (Late st Contact Info) Description 06/29/2005 Orders Only [facility] Pediatrics [place] [address] [facility] [place] [address] Vandana Hernandez NP NO ADDRESS ON FILE Social History Tobacco Use Types Packs/Day Years Used Date Smoking Tobacco: Never Assessed Comments Unknown Sex and Gender Information Value Date Recorded Sex Assigned at Not on file Legal Sex Female 3:08 AM FOUNTAIN WORKER Gender Identity Not on file Sexual [...] the patient (alone). ALLERGIES: CURRENT ALLERGY LIST: formerly [facility], [facility] MEDICATIONS: RN/MA reviewed medications.naeem, adv, nexium CHIEF [...] was negative. ASSESSMENT/PLAN: 789.07-ABDOMINAL PAIN GENERALIZED ? AUTO MECHANIC in nature Abdominal and pelvic US scheduled for 06/[address] [facility]. Call sooner if any increased sxs develop Electronically Signed by: YUSUF Ferrari on Wednesday, June 29, 2005 Electronically Signed by: Deshawn Kitchen MD on Thursday, June 30, 2005 documented in this encounter Plan of Treatment Upcoming Encounters Date Type Department Care Team (Latest Contact Info) Description 09/12/2024 12:00 PM CDT Hospital Encounter [address] [place] [address] Gary Burgess MD [address] [id number] [place] [address] Abdominal pain 09/12/2024 12:00 PM CDT - 09/12/2024 12:30 PM CDT Surgery [facility] Endoscopy Center [facility] [address] [place] [address] Gary Burgess MD [address] [id number] [place] [address] ESOPHAGOGASTRODUODENOSCOPY 06/25/2025 3:10 PM FOUNTAIN WORKER Office Visit [facility] Gastroenterology [place] [address] [facility] [address] [place] [address] Gary Burgess MD [address] [facility] [id number] [place] [address] 08/08/2025 10:30 AM CDT Office Visit [facility] Neurology [address] [facility] [address] [place] [address] Rama De La Paz MD [address] [facility] [address] [place] [address] Scheduled Procedures Name Priority Associated Diagnoses Date/Ti me ESOPHAGOGASTRODUODENOSCOPY Abdominal pain 09/12/2024 12:00 PM CDT documented as of this encounter Visit Diagnoses Not on filedocumented in this encounter Additional Health Concerns Infection Onset Date Last Indicated Resolved Time R/O C. diff 05/21/2020 05/21/2020 05/21/2020 1:01 PM FOUNTAIN WORKER R/O C. diff 10/31/2021 10/30/2021 10/31/2021 3:51 PM CDT R/O C. diff 09/01/2022 08/31/2022 09/01/2022 5:17 PM CDT documented as of this encounter Care Teams Zanjero Relationship Specialty Start Date End Date Porsha Garrido MD [address] [address] PCP - General 03/04/09 documented as of this encounter
--- OUTSIDE RECORDS SUMMARY | 2024-09-11 08:08 | XMS_ITS | Encounter Summary ---
Author Organization [facility] Address [address] [place] [address] Care Team Providers Care Welder Gas Automatic Name Role Phone Porsha Garrido MD Primary Care Provider Encounter Details Date Type Department Care Team (Late st Contact Info) Description 07/17/2005 Outpatient Historical [facility] Demond Desai Jr., MD [address] [place] [address] Er, Authorized P NO ADDRESS ON FILE NONINFEC GASTROENTERIT NEC (Primary Dx) Social History Tobacco Use Types Packs/Day Years Used Date Smoking Tobacco: Never Assessed Comments Unknown Sex and Gender Information Value Date Recorded Sex Assigned at Not on file Legal Sex Female 3:08 AM GOVERNMENT CONTRACTS MANAGER Gender Identity Not on file Sexual Orientation Not on file documented as of this encounter Plan of Treatment Upcoming Encounters Date Type Department Care Team (Latest Contact Info) Description 09/12/2024 12:00 PM CDT Hospital Encounter [facility] Endoscopy Center [facility] [address] [place] [address] [address] [place] [address] Gary Burgess MD [address] [facility] [id number] [place] [address] Abdominal pain 09/12/2024 12:00 PM CDT - 09/12/2024 12:30 PM CDT Surgery [facility] Endoscopy Center [address] [place] [address] Gary Burgess MD [address] [id number] [place] [address] ESOPHAGOGASTRODUODENOSCOPY 06/25/2025 3:10 PM GOVERNMENT CONTRACTS MANAGER Office Visit [facility] Gastroenterology [place] [address] [place] [address] Gary Burgess MD [address] [id number] [place] [address] 08/08/2025 10:30 AM CDT Office Visit [facility] Neurology [address] [place] [address] Rama De La Paz MD [address] [place] [address] Scheduled Procedures Name Priority Associated Diagnoses Date/Ti me ESOPHAGOGASTRODUODENOSCOPY Abdominal pain 09/12/2024 12:00 PM CDT documented as of this encounter Procedures Procedure Name Priority Date/Time Associated Diagnosis Comments HCG QUALITATIVE, URINE Routine 07/17/2005 2:56 PM GOVERNMENT CONTRACTS MANAGER URINALYSIS W/REFLEX MICROSCOPIC Routine 07/17/2005 2:48 PM GOVERNMENT CONTRACTS MANAGER documented in this encounter Results * HCG QUALITATIVE, URINE (07/17/2005 2:56 PM GOVERNMENT CONTRACTS MANAGER) HCG QUAL URINE Negative Negative INTER FACE SYSTEM SPECIFIC GRAVITY UA 1.025 1.001 - 1.035 INTERFACE SYSTEM HCG QUAL URINE COMMENT INTERFACE SYSTEM Comment: Urine in lab 07/17/2005 2:56 PM GOVERNMENT CONTRACTS MANAGER us Historical Provider URINE ORDERABLES Final Resul t Performing Organization Address [facility] Co de Phone Number INTERFACE SYSTEM Refer to clinic/hospital department * (ABNORMAL) URINALYSIS (07/17/2005 2:48 PM GOVERNMENT CONTRACTS MANAGER) COLOR UA Yellow INTERFACE SYSTEM CLARITY UA [...] 4 /HPF INTERFACE SYSTEM 07/17/2005 2:48 PM GOVERNMENT CONTRACTS MANAGER Historical Provider URINE ORDERABLES Final Resul t Performing Organization Address [facility] Co de Phone Number INTERFACE SYSTEM Refer to clinic/hospital department documented in this encounter Visit Diagnoses Diagnosis Other and unspecified noninfectious gastroenteritis and colitis(558.9)- Primary Other and unspecified noninfectious gastroenteritis and colitis Abdominal pain Abdominal pain, unspecified site documented in this encounter Additional Health Concerns Infection Onset Date Last Indicated Resolved Time R/O C. diff 05/21/2020 05/21/2020 05/21/2020 1:01 PM GOVERNMENT CONTRACTS MANAGER R/O C. diff 10/31/2021 10/30/2021 10/31/2021 3:51 PM CDT R/O C. diff 09/01/2022 08/31/2022 09/01/2022 5:17 PM CDT documented as of this encounter Care Teams Welder Gas Automatic Relationship Specialty Start Date End Date Porsha Garrido MD [address] [place] [address] PCP - General 03/04/09 documented as of this encounter
--- OUTSIDE RECORDS SUMMARY | 2024-09-11 08:08 | XMS_ITS | Encounter Summary ---
Author Organization [facility] Address [address] [place] [address] Care Team Providers Care Pharmacy Laboratory Technician Name Role Phone Porsha Garrido MD Primary Care Provider Encounter Details Date Type Department Care Team (Late st Contact Info) Description 06/29/2005 Outpatient Historical [facility] Pediatrics [place] [address] [facility] [place] [address] Deshawn Kitchen MD NO ADDRESS ON FILE Social History Tobacco Use Types Packs/Day Years Used Date Smoking Tobacco: Never Assessed Comments Unknown Sex and Gender Information Value Date Recorded Sex Assigned at Not on file Legal Sex Female 3:08 AM BLOCK CUTTER Gender Identity Not on file Sexual Orientation Not on file documented as of this encounter Plan of Treatment Upcoming Encounters Date Type Department Care Team (Latest Contact Info) Description 09/12/2024 12:00 PM CDT Hospital Encounter [facility]oscopy [facility] [address] [place] [address] [address] [place] [address] Gary Burgess MD [address] [facility] [address] [id number] [place] [address] Abdominal pain 09/12/2024 12:00 PM CDT - 09/12/2024 12:30 PM CDT Surgery [facility] End[facility] Center [facility] [address] [place] [address] Gary Burgess MD [address] [id number] [place] [address] ESOPHAGOGASTRODUODENOSCOPY 06/25/2025 3:10 PM BLOCK CUTTER Office Visit [facility] Gastroenterology [place] [address] [place] [address] Gary Burgess MD [address] [id number] [place] [address] 08/08/2025 10:30 AM CDT Office Visit [facility] Neurology [address] [place] [address] Rama De La Paz MD [address] [place] [address] Scheduled Procedures Name Priority Associated Diagnoses Date/Ti me ESOPHAGOGASTRODUODENOSCOPY Abdominal pain 09/12/2024 12:00 PM CDT documented as of this encounter Visit Diagnoses Not on filedocumented in this encounter Additional Health Concerns Infection Onset Date Last Indicated Resolved Time R/O C. diff 05/21/2020 05/21/2020 05/21/2020 1:01 PM BLOCK CUTTER R/O C. diff 10/31/2021 10/30/2021 10/31/2021 3:51 PM CDT R/O C. diff 09/01/2022 08/31/2022 09/01/2022 5:17 PM CDT documented as of this encounter Care Teams Pharmacy Laboratory Technician Relationship Specialty Start Date End Date Porsha Garrido MD [address] [place] [id number] PCP - General 03/04/09 documented as of this encounter
--- OUTSIDE RECORDS SUMMARY | 2024-09-11 08:08 | XMS_ITS | Clinical Summary ---
Author Organization [facility] Address [address] [facility] [place] [address] Care Team Providers Care Wastewater Treatment Operator Name Role Phone Unavailable Primary Care Provider [...] Description 10/24/2024 9:15 AM CDT Office Visit [facility] [address] [place] [address] Anahi Leigh, DDS [address] [place] [address] Health Maintenance Due Date Last Done Comments [...] PANORAMIC RADIOGRAPHIC IMAGE Routine 06/25/2019 2:00 AM CAD OPERATOR INTRAORAL - COMPREHENSIVE SERIES OF RADIOGRAPHIC IMAGES Routine 06/25/2019 2:00 AM CAD OPERATOR from Last 3 Months or Most Recently Relevant to Health Maintenance Insurance DENTAL ANDI O
--- OUTSIDE RECORDS SUMMARY | 2024-09-11 08:08 | XMS_ITS | Encounter Summary ---
Author Organization [facility] Address [address] [place] [address] Care Team Providers Care Retail Leader Name Role Phone Porsha Garrido MD Primary Care Provider Encounter Details Date Type Department Care Team (Late st Contact Info) Description 07/16/2005 Outpatient Historical [facility] Enrico Felix MD [address] [facility] [place], [place] [id number] Er, Authorized P NO ADDRESS ON FILE URIN TRACT INFECTION NOS (Primary Dx) Social History Tobacco Use Types Packs/Day Years Used Date Smoking Tobacco: Never Assessed Comments Unknown Sex and Gender Information Value Date Recorded Sex Assigned at Not on file Legal Sex Female 3:08 AM FINANCE MGR Gender Identity Not on file Sexual Orientation Not on file documented as of this encounter Plan of Treatment Upcoming Encounters Date Type Department Care Team (Latest Contact Info) Description 09/12/2024 12:00 PM CDT Hospital Encounter [facility] [address] [place] [address] Gary Burgess MD [address] [facility] [id number] [place] [address] Abdominal pain 09/12/2024 12:00 PM CDT - 09/12/2024 12:30 PM CDT Surgery [facility] Endoscopy Center [facility] [address] [place] [address] [address] [place] [address] Gary Burgess MD [address] [id number] [place] [address] ESOPHAGOGASTRODUODENOSCOPY 06/25/2025 3:10 PM FINANCE MGR Office Visit [facility] Gastroenterology [place] [address] [place] [address] Gary Burgess MD [address] [id number] [place] [address] 08/08/2025 10:30 AM CDT Office Visit [facility] Neurology [address] [place] [address] Rama De La Paz MD [address] [place] [address] Scheduled Procedures Name Priority Associated Diagnoses Date/Ti me ESOPHAGOGASTRODUODENOSCOPY Abdominal pain 09/12/2024 12:00 PM CDT documented as of this encounter Procedures Procedure Name Priority Date/Time Associated Diagnosis Comments URINALYSIS WITH MICROSCOPIC Routine 07/16/2005 1:15 PM FINANCE MGR HCG QUALITATIVE, URINE Routine 07/16/2005 1:15 PM FINANCE MGR CBC WITH DIFFERENTIAL Routine 07/16/2005 12:35 PM FINANCE MGR CBC WITH DIFFERENTIAL Routine 07/16/2005 12:35 PM FINANCE MGR documented in this encounter Results * HCG QUALITATIVE, URINE (07/16/2005 1:15 PM FINANCE MGR) HCG QUAL URINE Negative Negative INTER FACE SYSTEM SPECIFIC GRAVITY UA 1.030 1.001 - 1.035 INTERFACE SYSTEM 07/16/2005 1:15 PM FINANCE MGR us Enrico Felix MD URINE ORDERABLES Final Result Performing Organization Address [facility] Phone Number INTERFACE SYSTEM Refer to clinic/hospital department * (ABNORMAL) URINALYSIS WITH MICROSCOPIC (07/16/2005 1:15 PM FINANCE MGR) COLOR UA Yellow INTERFACE SYSTEM CLARITY UA [...] 5-10 /HPF INTERFACE SYSTEM 07/16/2005 1:15 PM FINANCE MGR [facility] Provider URINE ORDERABLES Final Resul t Performing Organization Address [facility] Phone Number INTERFACE SYSTEM Refer to clinic/hospital department * (ABNORMAL) CBC WITH DIFFERENTIAL (07/16/2005 12:35 PM FINANCE MGR) NEUTROPHILS 89(H) 45 - 70 % INTERFAC [...] K/uL INTERFACE SYSTEM 07/16/2005 12:3 5 PM FINANCE MGR Historical Provider HEMATOLOGY ORDERABLES Final Result Performing Organization Address City/State/[facility] Co de Phone Number INTERFACE SYSTEM Refer to clinic/hospital department * (ABNORMAL) CBC WITH DIFFERENTIAL (07/16/2005 12:35 PM FINANCE MGR) WBC 7.8 4.0 - 9.8 K/uL INTERFACE [...] fL INTERFACE SYSTEM 07/16/2005 12:3 5 PM FINANCE MGR Historical Provider HEMATOLOGY ORDERABLES Final Result Performing Organization Address [facility] Phone Number INTERFACE SYSTEM Refer to clinic/hospital department documented in this encounter Visit Diagnoses Diagnosis Urinary tract infection, site not specified- Primary Abdominal pain Abdominal pain, unspecified site documented in this encounter Additional Health Concerns Infection Onset Date Last Indicated Resolved Time R/O C. diff 05/21/2020 05/21/2020 05/21/2020 1:01 PM FINANCE MGR R/O C. diff 10/31/2021 10/30/2021 10/31/2021 3:51 PM CDT R/O C. diff 09/01/2022 08/31/2022 09/01/2022 5:17 PM CDT documented as of this encounter Care Teams Retail Leader Relationship Specialty Start Date End Date Porsha Garrido MD [address] [place] [address] PCP - General 03/04/09 documented as of this encounter
--- OUTSIDE RECORDS SUMMARY | 2024-09-11 08:08 | XMS_ITS | Encounter Summary ---
Author Organization [facility] Address [address] [place] [address] Care Team Providers Care Research Neuropsychologist Name Role Phone Porsha Garrido MD Primary Care Provider Encounter Details Date Type Department Care Team (Late st Contact Info) Description 03/29/2008 Outpatient Historical [place] [address] [place] [phone] Blood in Stool Social History Tobacco Use Types Packs/Day Years Used Date Smoking Tobacco: Never Assessed Comments Unknown Sex and Gender Information Value Date Recorded Sex Assigned at Not on file Legal Sex Female 3:08 AM TOLL GATE KEEPER Gender Identity Not on file Sexual Orientation Not on file documented as of this encounter Plan of Treatment Upcoming Encounters Date Type Department Care Team (Latest Contact Info) Description 09/12/2024 12:00 PM CDT Hospital Encounter [facility] [address] [place] [address] Gary Burgess MD [address] [facility] [id number] [place] [address] Abdominal pain 09/12/2024 12:00 PM CDT - 09/12/2024 12:30 PM CDT Surgery [facility] [address] [place] [phone] Gary Burgess MD [address] [facility] [id number] [place] [phone] ESOPHAGOGASTRODUODENOSCOPY 06/25/2025 3:10 PM TOLL GATE KEEPER Office Visit [facility] Gastroenterology [address] [place] [address] Gary Burgess MD [address] [facility] [id number] [place] [address] 08/08/2025 10:30 AM CDT Office Visit [facility] Neurology [address] [facility] [address] [place] [address] Rama De La Paz MD [address] [facility] [address] [place] [address] Scheduled Procedures Name Priority Associated Diagnoses Date/Ti me ESOPHAGOGASTRODUODENOSCOPY Abdominal pain 09/12/2024 12:00 PM CDT documented as of this encounter Procedures Procedure Name Priority Date/Time Associated Diagnosis Comments PATHOLOGY Routine 03/29/2008 11:10 AM TOLL GATE KEEPER POC , URINE Routine 03/29/2008 10:00 AM TOLL GATE KEEPER documented in this encounter Results * PATHOLOGY (03/29/2008 11:10 AM TOLL GATE KEEPER) FINAL REPORT [facility] [address] [facility] [place], [place] [address] Patient: ALLY ARREAGA : 1985 Procedure Date: 03/29/2008 Accession Date: 03/29/2008 Case No: [id number] Ordering Dr: ANAI GANT Case types AW, BW, FW, NW and SH are performed by [facility], [place], [place] SURGICAL PATHOLOGY & NON-GYNECOLOGIC CYTOPATHOLOGY REPORT [...] 03:01 pm Microscopic: The slides are labeled [id number], Ally Arreaga. The rectal mucosa contains scattered [...] normal, and there is no significant inflammation. KHF/AMANDA 04.01.2008 10:47 am Staging Form: No. ELECTRONIC SIGNATURE FOR ELVIRA JULIAN M.D.- 04/01/08 11:20 am INTERFACE SYSTEM 03/29/2008 11:1 0 AM TOLL GATE KEEPER us Anai Gant MD PATHOLOGY/CYTOLOGY ORDERABLES F inal Result Performing Organization Address [facility] de Phone Number INTERFACE SYSTEM Refer to clinic/hospital department * POC , URINE (03/29/2008 10:00 AM TOLL GATE KEEPER) , URINE POC Negative Negative [facility] Urine specimen (specimen) 03/29/2008 10:00 AM TOLL GATE KEEPER 03/29/2008 10:00 AM TOLL GATE KEEPER us Anai Gant MD POINT OF CARE TESTING Final Res ult Performing Organization Address [facility] Phone Number INTERFACE SYSTEM Refer to clinic/hospital department [facility] CLIA# [id number] [address] [place], [place] [address] documented in this encounter Visit Diagnoses Diagnosis Blood in stool Abdominal pain Abdominal pain, unspecified site documented in this encounter Additional Health Concerns Infection Onset Date Last Indicated Resolved Time R/O C. diff 05/21/2020 05/21/2020 05/21/2020 1:01 PM TOLL GATE KEEPER R/O C. diff 10/31/2021 10/30/2021 10/31/2021 3:51 PM CDT R/O C. diff 09/01/2022 08/31/202209/0109/01/2022 5:17 PM CDT documented as of this encounter Care Teams Research Neuropsychologist Relationship Specialty Start Date End Date Porsha Garrido MD [address] [place] [address] PCP - General 03/04/09 documented as of this encounter
[2024-09-11 08:32] LABS: Alanine Aminotransferase 15 U/L (6-35); Albumin Level 4.5 g/dL (3.5-5.1); Alkaline Phosphatase 59 U/L (38-126); Amylase 63 U/L (30-110); Aspartate Amino Transferase 19 U/L (14-36); Bilirubin,Total 0.4 mg/dL (0.2-1.3); Lipase 87 U/L (23-300)
== END 2024-09-11 07:58 | disposition home or self-care (01) ==
PROVIDERS: Visit Provider Surgery
DX: K80.10 Calculus of gallbladder with chronic cholecystitis without obstruction (principal); Z01.818 Encounter for other preprocedural examination
CPT/HCPCS: 36415; 80076; 82150; 83690

== ENCOUNTER 2024-09-13 08:16 | Outpatient (CLI) | payer OTHER, SELFPAY ==
--- NOTE | ~2024-09-13 | US_ITS ---
Limited Abdominal Sonogram: Real-time sonographic imaging of the right upper quadrant was performed. Clinical History: Right upper quadrant pain Findings: The liver appears normal with no evidence of mass lesion or bile duct dilatation. Main por shasta vein demonstrates normal direction of flow. The gallbladder is well distended, and appears normal with no evidence of gallstone or wall thickening. The common bile duct measures 3 mm. The visualize d pancreas, aorta, and IVC are unremarkable. Impression: No significant abnormality seen. Reviewed, dictated and finalized at location M. Impression: No significant abnormality seen.
== END 2024-09-13 08:17 | disposition home or self-care (01) ==
PROVIDERS: PCP Surgery; Visit Provider Surgery
DX: R10.11 Right upper quadrant pain (principal)
CPT/HCPCS: 76705

== ENCOUNTER 2024-09-19 00:59 | Day surgery (SDC) | payer OTHER, SELFPAY ==
[2024-09-05 09:23] VITALS: BMI 28.1
--- NOTE | 2024-09-05 09:24 | PC.NURSE ---
Report to the Outpatient Waiting Room, entrance under the green pavilion located off [facility], at time __0800__ on date ___09/19/24___. Planned Procedure Time: ___1000___.? Time changes happen often and if your time is changed the preop area will call you the afternoon before. - You and your visitor will be asked to self-screen and do not enter if you have any COVID symptoms. Please call surgeon if you need to reschedule. - A mask is optional within the hospital at this time. Patients may have clear liquids (water, carbonated beverages, clear teas, apple juice) until 3 hours prior to surgery with a maximum of 20 ounces. - No food from midnight until time of surgery and no smoking, or chewing tobacco (or any form of nicotine). No chewing gum, candy or mints. Take only the following medications with a SIP of water on the morning of surgery: ___alprazolam, budesonide inhaler, excitalopram oxalate, valacyclovir____ DO NOT STOP ANY OF YOUR OTHER PRESCRIPTION MEDICATIONS PRIOR TO SURGERY EXCEPT THE FOLLOWING Hold all vitamins and supplements for 3 days per anesthesiologist. Please no make-up, nail maltese, hairspray, perfume, deodorant, or body powder the day of surgery.? No jewelry (including any body piercings) or valuables the day of surgery, leave them at home.? Please take a shower or bath the night before, or the morning of, surgery with an antibacterial soap.? Wear comfortable, loose fitting clothing.? - Jewelry must be removed prior to entering the operating room.? Rings and piercings that are not removed may be cut off. - The hospital will not accept responsibility for valuables.? - Please leave all valuables, including medications, at home the day of surgery. If you are going home after surgery, a licensed ambulance driver must drive you home.? - NO public transportation without another adult if you receive anesthesia. - We recommend that an adult stay with you for 24 hours following discharge. - We also recommend that you do not drive, make important decision, drink alcoholic beverages, or take any drugs that were not prescribed by your health care provider for at least 24 hours after your discharge time. Follow any additional instructions given to you from your surgeon. Telephone instructions given to ___Ally Nicolas ___and asked if any additional questions and then verbalized understanding. Patient advised to call surgeon office or pre surgery nurse liaison [phone] if any additional questions.
[2024-09-19] VITALS (8 sets, daily range): BP systolic 102–118; BP diastolic 68–81; PULSE 62–96; RESP 12–24; TEMP 36.9–37.2; O2SAT 97–100; BMI 28.3
--- OUTSIDE RECORDS SUMMARY | 2024-09-19 01:03 | XMS_ITS | Encounter Summary ---
Author Organization [facility] Address [address] [facility] [place] [address] Care Team Providers Care Bunker Worker Name Role Phone Porsha Garrido MD Primary Care Provider Carina Rey MD Unavailable Unavailable Gary Burgess MD Unavailable [phone] Evelyn García RN Unavailable [phone] Porsha Garrido MD Unavailable [phone] Joselito Gold MD Unavailable [phone] Porsha Garrido MD Unavailable [phone] Joselito Gold MD Unavailable [phone] Jolie Marrero PA-C Unavailable [phone] Porsha Garrido MD Unavailable [phone] Porsha Garrido MD Unavailable [phone] Joselito Casarez MD Unavailable Unavailable Michelle Nogueira BUYER ASSISTANT-REFINERY OPERATOR HELPER Unavailable [phone] Porsha Garrido MD Unavailable [phone] Paloma Romo Unavailable Marjorie Weston DO Unavailable Porsha Garrido MD Unavailable Encounter Details Date Type Department Care Team (Late Contact Info) Description 09/11/2012 [facility] Outpatient Visit [facility] REHAB [address] [place] [address] Unknown, Provider Social History Tobacco Use Types Packs/Day Years Used Date Smoking Tobacco: Never Smokeless Tobacco: Never Alcohol Use Standard Drinks/Week Comments Yes 0 (1 standard drink = 0.6 oz pur e alcohol) occasionally Comments No Sex and Gender Information Value Date Recorded Sex Assigned at Not on file Legal Sex Female 12:18 PM MALT LIQUORS SALES REPRESENTATIVE Gender Identity Female 01/16/2019 9:49 AM CDT Sexual Orientation Not on file 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 Breast Care - Surgery [address] [place] [phone] Satnam Nicole MD [address] [place] [phone] 10/17/2024 8:15 AM CDT Video Visit [facility] Medical Group - Family Medicine [address] [place] [address] Porsha Garrido MD [address] [place] [address] documented as of this encounter Visit Diagnoses Not on filedocumented in this encounter Additional Health Concerns Infection Onset Date Last Indicated Resolved Time COVID-19 Under Investigation 04/01/2020 04/01/2020 04/02/2020 2:40 PM MALT LIQUORS SALES REPRESENTATIVE COVID-19 Confirmed 04/01/2020 04/01/2020 11/27/202 0 4:34 AM MALT LIQUORS SALES REPRESENTATIVE documented as of this encounter Care Teams Bunker Worker Relationship Specialty Start Date End Date Porsha Garrido MD [address] [place] [address] PCP - General 01/31/11 Porsha Garrido MD [address] [place] [address] PCP - Attributed-[employer] Commercial 09/13/18 11/01/19 Joselito Gold MD [address] [place] [address] PCP - Attributed-[employer] 07/15/19 08/14/19 Porsha Garrido MD [address] [place] [address] PCP - Attributed-[employer] 08/15/19 07/13/20 Jolie Marrero PA-C [address] [place] [phone] PCP - Attributed-[employer] 07/14/20 08/13/20 Porsha Garrido MD [address] [place] [address] PCP - Attributed-[employer] 08/14/20 12/29/21 Porsha Garrido MD [address] [place] [address] PCP - Attributed-[facility] Commercial 05/16/22 08/31/22 Porsha Garrido MD [address] [place] [address] [place] [address] PCP - Attributed-[facility] Commercial 11/13/22 07/31/24 Porsha Garrido MD [address] [place] [address] PCP - Attributed-[employer] 10/29/16 09/14/17 Carina Rey MD [address] [place] [address] Obstetrics and Gynecology 10/27/11 07/14/20 Gary Burgess MD [address] [place] [address] Gastroenterology 08/22/13 Evelyn García, RN Director Of Event Marketing 01/05/15 06/07/24 Joselito Gold MD [address] [place] [address] Obstetrics and Gynecology 07/15/20 5 Joselito Casarez MD [address] [place] [phone] Hematology and Oncology 09/03/22 05/26/23 Michelle Nogueira, BUYER ASSISTANT-REFINERY OPERATOR HELPER [address] [place] [address] [place] [address] Nurse Practitioner Nurse Practitioner Adult Health 09/03/22 Paloma Romo Care Coordination Specialist Care Management 12/13/23 12/13/23 Marjorie Weston DO [address] [facility] [address] [place] [address] Rheumatology 05/31/24 documented as of this encounter
--- OUTSIDE RECORDS SUMMARY | 2024-09-19 01:03 | XMS_ITS | Clinical Summary ---
Author Organization [facility] Address [address] [facility] [place] [address] Care Team Providers Care Warehousing Technician Name Role Phone Porsha Garrido MD Primary Care Provider Gary Burgess MD Unavailable [phone] Michelle Nogueira APRN-EDUCATIONAL DIAGNOSTICIAN Unavailable [phone] Marjorie Weston DO Unavailable Source Comments [facility],non-owned Affiliates and Associated Physician Practices is amultiple site organization consisting of ambulatory clinics and hospital sitesin [place] and [place]. This disclosure is being madepursuant to the Care Everywhere program and may not contain all information available regarding this patient. Last updated 18.[facility] Allergies Active Allergy Reactions Criticality Noted Date [...] fluticasone propionate (FLONASE) 50 MCG/ACT nasal spray [place] 2 (two) sprays into the nose [...] Type Department Care Team Description 09/02/[address] [address] Porsha Garrido MD Med Change Request 08/30/[address] [address] Porsha Garrido MD MEDICATION REFILL 08/30/[address] [address] Porsha Garrido MD Refill Request 08/27/2024 7:10 PM CDT Video Visit [address] [phone] Shakira High, BRIDGE WORKER-EDUCATIONAL DIAGNOSTICIAN Referral of patient without examination or treatment 08/08/[address] [address] Porsha Garrido MD Med Change Request 08/03/[address] [address] Porsha Garrido MD Refill Request 08/02/[address] [address] Porsha Garrido MD MEDICATION REFILL 07/28/2024 11:08 AM CDT - 07/28/2024 12:59 PM CDT Emergency ER at [address] [address] Brian Baumann MD Near syncope Discharge Disposition: Home or Self Care 07/28/2024 Travel 07/11/2024 8:45 AM MOISTURE CONDITIONER OPERATOR Video Visit [address] [address] Porsha Garrido MD JOHN (generalized anxiety disorder) 07/05/[address] [address] Porsha Garrido MD Refill Request 06/30/[address] [address] Porsha Garrido MD Med Change Request from [...] on file Legal Sex Female 12:18 PM MOISTURE CONDITIONER OPERATOR Gender Identity Female 01/16/2019 9:49 AM CDT Sexual Orientation Not on file 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 Not [...] lb 3.2 oz) 06/05/2024 8:07 A M MOISTURE CONDITIONER OPERATOR Height 172.7 cm (5' 8 ) 07/28/2024 10:14 AM CDT Body Mass Index 29.53 06/05/2024 8:07 AM MOISTURE CONDITIONER OPERATOR Plan of Treatment Upcoming Encounters Date Type Department Care Team (Late st Contact Info) Description 10/05/2024 10:00 AM CDT Office Visit [facility] Breast Care - Surgery [address] [place] [phone] Satnam Nicole MD [address] [place] [phone] 10/17/2024 8:15 AM CDT Video Visit [facility] Medical Group - Family Medicine [address] [place] [address] Porsha Garrido MD [address] [place] [address] Health Maintenance Due Date Last Done Comments [...] Procedure Name Priority Date/Time Associated Diagnosis Comments ENDOSCOPY ORDER 09/12/2024 CARDIAC EKG ORDER 07/30/2024 9:0 1 PM CDT HCG BETA BLOOD QUANTITATIVE STAT 07/28/2024 11:50 AM CDT MAGNESIUM BLOOD STAT 07/28/2024 11:50 AM CDT COMPREHENSIVE METABOLIC PANEL STAT 07/28/2024 11:50 AM CDT CBC W AUTO DIFFERENTIAL STAT 07/28/2024 11:50 AM CDT EKG 12-LEAD STAT 07/28/2024 11:15 AM CDT Near syncope PAP IG LB +HPV APTIMA REFLEX 16,18/45 Routine 06/05/2024 8:24 AM MOISTURE CONDITIONER OPERATOR Screening for cervical cancer HEPATITIS C AB [...] Recently Relevant to Health Maintenance Results * Endoscopy Order (09/12/2024) 09/12/2024 Narrative 09/12/2024 Ordered by an unspecified provider. us Scanned Document GI PROCEDURE ORDERABLES Final R esult * CARDIAC EKG ORDER (07/30/2024 9:01 PM CDT) Narrative 07/30/2024 9:01 PM CDT Ordered by an unspecified provider. us Scanned Document CARDIAC SERVICES ORDERABLES Fin al Result * (ABNORMAL) CBC W AUTO DIFFERENTIAL (07/28/2024 11:50 AM CDT) WBC 9.6 4.0 - 10.7 x10E9/L 07/28/2024 12:02 PM CDT [facility] RBC Count 4.28 3.90 - 5.20 x10E12/L 07/28/2024 12:02 PM CDT [facility] Hemoglobin 12.8 11.9 - 15.8 g/dL 07/28/2024 12:02 PM CDT [facility] Hematocrit 36.3 34.8 - 46.1 % 07/28/2024 12:02 PM CDT [facility] MCV 84.8 80.0 - 98.0 fL 07/28/2024 12:02 PM CDT [facility] MCH 29.9 26.7 - 33.6 pg 07/28/2024 12:02 PM CDT [facility] MCHC 35.3 31.7 - 36.3 g/dL 07/28/2024 12:02 PM CDT [facility] RDW-CV 12.3 11.3 - 14.8 % 07/28/2024 12:02 PM [facility] Platelet Count 330 150 - 420 x10E9/L 07/28/2024 12:02 PM [facility] MPV 8.9 7.8 - 11.4 fL 07/28/2024 12:02 PM [facility] Neutrophil % 63.2 41.0 - 74.0 % 07/28/2024 12:02 PM [facility] Lymphocyte % 18.8 17.0 - 47.0 % 07/28/2024 12:02 PM [facility] Monocyte % 4.6 3.0 - 11.0 % 07/28/2024 12:02 PM [facility] Eosinophil % 12.3(H) 0.0 - 7.0 % 07/28/2024 12:02 PM [facility] Basophil % 0.8 0.0 - 1.6 % 07/28/2024 12:02 PM [facility] Immature Granulocytes % 0.3 0.0 - 1.0 % 07/28/2024 12:02 PM [facility] Neutrophil Absolute 6.03 1.60 - 7.50 x10E9/L 07/28/2024 12:02 PM [facility] Lymphocyte Absolute 1.80 1.00 - 4.40 x10E9/L 07/28/2024 12:02 PM [facility] Monocyte Absolute 0.44 0.15 - 1.00 x10E9/L 07/28/2024 12:02 PM [facility] Eosinophil Absolute 1.17(H) 0.00 - 0.60 x10E9/L 07/28/2024 12:02 PM [facility] Basophil Absolute 0.08 0.00 - 0.13 x10E9/L 07/28/2024 12:02 PM [facility] Blood BLOOD SPECIMEN / Unknown Venipuncture / Unknown 07/28/2024 11:50 AM CDT 07/28/2024 11:57 AM CDT Brian Baumann MD LAB - HEMATOLOGY ORDERABLES Final Result [facility] [address] [place] [id number] * COMPREHENSIVE METABOLIC PANEL (07/28/2024 11:50 AM CDT) Glucose 89 70 - 99 mg/dL 07/28/2024 12:21 PM [facility] Sodium 140 136 - 145 mmol/L 07/28/2024 12:21 PM [facility] Potassium 3.7 3.5 - 5.1 mmol/L 07/28/2024 12:21 PM [facility] Chloride 106 98 - 107 mmol/L 07/28/2024 12:21 PM [facility] CO2 25 22 - 29 mmol/L 07/28/2024 12:21 PM [facility] Calcium 9.2 8.4 - 10.4 mg/dL 07/28/2024 12:21 PM [facility] Anion Gap 9 6 - 16 mmol/L 07/28/2024 12:21 PM [facility] BUN 10 5.3 - 18.7 mg/dL 07/28/2024 12:21 PM [facility] Creatinine 0.69 0.57 - 1.11 mg/dL 07/28/2024 12:21 PM [facility] Alkaline Phosphatase 68 40 - 150 U/L 07/28/2024 12:21 PM [facility] ALT 15 0 - 55 U/L 07/28/2024 12:21 PM [facility] AST 14 5 - 34 U/L 07/28/2024 12:21 PM [facility] Protein Total 7.7 6.4 - 8.3 gm/dL 07/28/2024 12:21 PM [facility] Albumin 4.2 3.4 - 5.0 gm/dL 07/28/2024 12:21 PM [facility] Bilirubin Total 0.4 0.2 - 1.2 mg/dL 07/28/2024 12:21 PM [facility] eGFR by CKD-EPI >90 >=90 mL/min/1.7 3 m2 07/28/2024 12:21 PM [facility] Blood BLOOD SPECIMEN / Unknown Venipuncture / Unknown 07/28/2024 11:50 AM CDT 07/28/2024 11:57 AM CDT Brian Baumann MD LAB - CHEMISTRY ORDERABLES F inal Result Performing Organization Address City/[facility]/ZIP Co de Phone Number [facility] [address] [place] [address] * HCG BETA BLOOD QUANTITATIVE (07/28/2024 11:50 AM CDT) hCG Quantitative <2.42 mIU/mL 07/29/19 12:27 PM CDT [facility] Blood BLOOD SPECIMEN / Unknown Venipuncture / Unknown 07/28/2024 11:50 AM CDT 07/28/2024 11:57 AM CDT Narrative [facility] - 07/28/2024 12:27 PM CDT [...] ORDERABLES F inal Result Performing Organization Address City/[facility]/ZIP Co de Phone Number [facility] [address] [place] [address] * MAGNESIUM BLOOD (07/28/2024 11:50 AM CDT) Magnesium 1.7 1.6 - 2.6 mg/dL 07/28/2024 12:21 PM CDT [facility] Blood BLOOD SPECIMEN / Unknown Venipuncture / Unknown 07/28/2024 11:50 AM CDT 07/28/2024 11:57 AM CDT Brian Baumann MD LAB - CHEMISTRY ORDERABLES F inal Result Performing Organization Address City/[facility]/ZIP Co de Phone Number [facility] [address] [place] [address] * EKG 12-LEAD (07/28/2024 11:15 AM CDT) Ventricular Rate 59 BPM [facility] Atrial Rate 59 BPM [facility] P-R Interval 140 ms [facility] QRS Duration ms 78 ms [facility] Q-T Interval ms 440 ms [facility] QTC Calculation (Bezet) 435 ms [facility] Calculated R [place] -179 degrees [facility] Calculated T [place] -171 degrees [facility] Interpretation EKG Suspect arm lead reversal, interpretation assumes no reversal Sinus bradycardia Right superior axis deviation T wave abnormality, consider inferior ischemia Abnormal ECG When compared with ECG of 06-JUL-2023 11:16, Questionable change in QRS axis T wave inversion now evident in Inferior leads Confirmed by FLAKITA TAPIA [facility] ([id number]) on 07/30/2024 2:05:41 PM [facility] 07/28/2024 11:1 5 AM CDT 07/30/2024 2:05 PM CDT Brian Baumann MD ECG ORDERABLES Edited Resul t - Final Performing Organization Address [facility]/ZIP Co de Phone Number [facility] * PAP IG LB +HPV APTIMA REFLEX 16,18/45 (06/05/2024 8:24 AM MOISTURE CONDITIONER OPERATOR) Diagnosis Comment [facility] INSURANCE BILL Comment:NEGATIVE FOR [...] UTERINE CERVIX / Unknown 06/05/2024 8:24 AM MOISTURE CONDITIONER OPERATOR 06/05/2024 Comment:Cervix Release to [facility] Narrative [facility] INSURANCE BILL - 06/07/2024 1:08 PM MOISTURE CONDITIONER OPERATOR Performed at: 01 - [address] [id number] Early Childhood Assistant: Sejal Ordoñez MD, Phone: [phone] Performed at: 02 - [address] [id number] Early Childhood Assistant: Sejal Ordoñez MD, Phone: [phone] Specimen Comment: [id number] Specimen Comment: No. of containers..01 ThinPrep Vial Karen Ngo BRIDGE WORKER-EDUCATIONAL DIAGNOSTICIAN LAB - PATHOLOGY/CYTOLOGY ORDERABLES Final Result [facility] INSURANCE BILL [address] [place] [address] * HEPATITIS C AB W RFLX VERIFICATION (09/25/2018 10:43 AM CDT) Hepatitis C Antibody <0.1 0.0 - 0.9 s/co ratio [facility] ACCOUNT BILL Comment:FASTING Blood BLOOD SPECIMEN / Unknown 09/25/2018 10:43 AM CDT 09/25/2018 Narrative Resulting Agency Comment Lab Testing performed at: [facility] [address] [facility] [id number] Lianne Welch MD LAB - CHEMISTRY ORDERABLES Iesha l Result [facility] ACCOUNT BILL [address] [place] [address] * HIV-1 HIV-2 ANTIBODY + HIV P24 AG PANEL (09/25/2018 10:43 AM CDT) HIV Screen 4th Generation w Reflex Non Reactive Non Reactive [facility] ACCOUNT BILL Comment:FASTING Blood BLOOD SPECIMEN / Unknown 09/25/2018 10:43 AM CDT 09/25/2018 Narrative Resulting Agency Comment Lab Testing performed at: [facility] [place] [id number] Lianne Welch MD LAB - CHEMISTRY ORDERABLES Iesha l Result Performing Organization Address City/[facility]/ZIP Co de Phone Number [facility] ACCOUNT BILL [address] [place] [address] from Last 3 Months or Most Recently Relevant to Health Maintenance Insurance [facility] Advance Directives * Full Code (Latest Code Status on File) Date Activated Date Inactivated Comments 01/05/2015 3:32 AM 01/07/2015 2:46 PM Care Teams Warehousing Technician Relationship Specialty Start Date End Date Porsha Garrido MD [address] [facility] [address] [place] [address] PCP - General 01/31/11 Gary Burgess MD [address] [facility] [address] [place], [place] [id number] Gastroenterology 08/22/13 Michelle Nogueira, GASPER-EDUCATIONAL DIAGNOSTICIAN [address] [place] [address] [address] [place] [address] Nurse Practitioner Nurse Practitioner Adult Health 09/03/22 Marjorie Weston DO [address] [place] [address] [address] [place] [phone] Rheumatology 05/31/24
--- OUTSIDE RECORDS SUMMARY | 2024-09-19 01:03 | XMS_ITS | Encounter Summary ---
Author Organization [facility] Address [address] [facility] [place] [address] Care Team Providers Care Health Sanitarian Name Role Phone Porsha Garrido MD Primary Care Provider Gary Burgess MD Unavailable [phone] Evelyn García RN Unavailable [phone] Joselito Gold MD Unavailable [phone] Michelle Nogueira PAN SHOVER-PUPPY SITTER Unavailable [phone] Porsha Garrido MD Unavailable [phone] Marjorie Weston DO Unavailable Reason for Visit * Reason Onset Date Comments MEDICATION REFILL 04/16/2024 Encounter Details Date Type Department Care Team (Late st Contact Info) Description 04/16/2024 Refill [facility] Medical Group - VENDING TECHNICIAN [facility] [address] [address] Joselito Gold MD [address] [place] [address] MEDICATION REFILL Social History Tobacco Use [...] on file Legal Sex Female 12:18 PM FLAT SURFACER JEWEL Gender Identity Female 01/16/2019 9:49 AM CDT Sexual Orientation Not on file 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 Not on file [...] Description 10/05/2024 10:00 AM CDT Office Visit [facility] Breast Care - Surgery [address] [place] [address] [phone] Satnam Nicole MD [address] [place] [address] 10 [place] [address] 10/17/2024 8:15 AM CDT Video Visit [facility] Medical [facility] - Family Medicine [address] [place] [address] [phone] Porsha Garrido MD [address] [place] [address] documented as of this encounter Visit Diagnoses Not on filedocumented in this encounter Care Teams Health Sanitarian Relationship Specialty Start Date End Date Porsha Garrido MD [address] [place] [address] [phone] PCP - General 01/31/11 Porsha Garrido MD [address] [place] [address] PCP - Attributed-[employer] Commercial 11/13/22 07/31/24 Gary Burgess MD [address] [place] [address] [place] [address] Gastroenterology 08/22/13 Evelyn García RN Social Work Lecturer 01/05/15 06/07/24 Joselito Gold MD [address] [place] [address] Obstetrics and Gynecology 07/15/20 5 Michelle Nogueira APRN-KESHA [address] [facility] [address] [place] [address] Nurse Practitioner Nurse Practitioner Adult Health 09/03/22 Marjorie Weston DO [address] [facility] [address] [place] [address] Rheumatology 05/31/24 documented as of this encounter
--- OUTSIDE RECORDS SUMMARY | 2024-09-19 01:03 | XMS_ITS | Encounter Summary ---
Author Organization [facility] Address [address] [facility] [place] [address] Care Team Providers Care Algebra Tutor Name Role Phone Porsha Garrido MD Primary Care Provider Carina Rey MD Unavailable Unavailable Gary Burgess MD Unavailable [phone] Evelyn García RN Unavailable [phone] Porsha Garrido MD Unavailable [phone] Joselito Gold MD Unavailable [phone] Porsha Garrido MD Unavailable [phone] Joselito Gold MD Unavailable [phone] Jolie Marrero PA-C Unavailable [phone] Porsha Garrido MD Unavailable [phone] Porsha Garrido MD Unavailable [phone] Joselito Casarez MD Unavailable Unavailable Michelle Nogueira BREAKER MACHINE OPERATOR-SOLAR PANEL INSTALLER Unavailable [phone] Porsha Garrido MD Unavailable [phone] Paloma Romo Unavailable Marjorie Weston DO Unavailable Porsha Garrido MD Unavailable Encounter Details Date Type Department Care Team (Late Contact Info) Description 10/11/2014 [facility] Outpatient Visit [facility] Orthopedics - Radiology [address] [place] [address] Meir Luo DO [address] [place] [address] Social History Tobacco Use Types Packs/Day Years Used Date Smoking Tobacco: Never Smokeless Tobacco: Never Alcohol Use Standard Drinks/Week Comments Yes 0 (1 standard drink = 0.6 oz pur e alcohol) occasionally Comments No Sex and Gender Information Value Date Recorded Sex Assigned at Not on file Legal Sex Female 12:18 PM SUPERVISOR LOADING Gender Identity Female 01/16/2019 9:49 AM CDT Sexual Orientation Not on file 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 Not on file Not on f ile documented as of this encounter Plan of Treatment Upcoming Encounters Date Type Department Care Team (Late st Contact Info) Description 10/05/2024 10:00 AM CDT Office Visit [facility] Breast Care - Surgery [address] [place] [phone] Satnam Nicole MD [address] [place] [phone] 10/17/2024 8:15 AM CDT Video Visit [facility] Medical Group - Family Medicine [address] [place] [address] [phone] Porsha Garrido MD [address] [place] [address] documented as of this encounter Visit Diagnoses Not on filedocumented in this encounter Additional Health Concerns Infection Onset Date Last Indicated Resolved Time COVID-19 Under Investigation 04/01/2020 04/01/2020 04/02/2020 2:40 PM SUPERVISOR LOADING COVID-19 Confirmed 04/01/2020 04/01/2020 0 4:34 AM SUPERVISOR LOADING documented as of this encounter Care Teams Algebra Tutor Relationship Specialty Start Date End Date Porsha Garrido MD [address] [place] [address] PCP - General 01/31/11 Porsha Garrido MD [address] [place] [address] PCP - Attributed-UHC Commercial 09/13/18 11/01/19 Joselito Gold MD [address] [place] [address] PCP - Attributed-Cigna 07/15/19 08/14/19 Porsha Garrido MD [address] [place] [address] PCP - Attributed-Cigna 08/15/19 07/13/20 Jolie Marrero PA-C [address] [place] [phone] PCP - Attributed-Cigna 07/14/20 08/13/20 Porsha Garrido MD [address] [place] [address] PCP - Attributed-Cigna 08/14/20 12/29/21 Porsha Garrido MD [address] [place] [address] [place] [address] PCP - Attributed-[place] Commercial 05/16/22 08/31/22 Porsha Garrido MD [address] [place] [address] [place] [address] PCP - Attributed-[place] Commercial 11/13/22 07/31/24 Porsha Garrido MD [address] [place] [address] [place] [address] PCP - Attributed-Exclusive Choice 10/29/16 09/14/17 Carina Rey MD [address] [place] [address] [place] [address] Obstetrics and Gynecology 10/27/11 07/14/20 Gary Burgess MD [address] [place] [address] [address] [place] [address] Gastroenterology 08/22/13 Evelyn García, RN Head Mixer 01/05/15 06/07/24 Joselito Gold MD [address] [place] [address] Obstetrics and Gynecology 07/15/20 5 Joselito Casarez MD [address] [place] [address] [address] [place] [address] Hematology and Oncology 09/03/22 05/26/23 Michelle Nogueira APRN-SOLAR PANEL INSTALLER [address] [place] [address] [address] [place] [address] Nurse Practitioner Nurse Practitioner Adult Health 09/03/22 Paloma Romo Care Coordination Specialist Care Management 12/13/23 12/13/23 Marjorie Weston DO [address] [address] Rheumatology 05/31/24 documented as of this encounter
--- OUTSIDE RECORDS SUMMARY | 2024-09-19 01:03 | XMS_ITS | Encounter Summary ---
Author Organization [facility] Address [address] [facility] [place] [address] Care Team Providers Care Therapist Name Role Phone Porsha Garrido MD Primary Care Provider Carina Rey MD Unavailable Unavailable Gary Burgess MD Unavailable [phone] Evelyn García RN Unavailable [phone] Porsha Garrido MD Unavailable [phone] Joselito Gold MD Unavailable [phone] Porsha Garrido MD Unavailable [phone] Joselito Gold MD Unavailable [phone] Jolie Marrero PA-C Unavailable [phone] Porsha Garrido MD Unavailable [phone] Porsha Garrido MD Unavailable [phone] Joselito Casarez MD Unavailable Unavailable Michelle Nogueira EDGER OPERATOR-KIT ASSEMBLER Unavailable [phone] Porsha Garrido MD Unavailable [phone] Paloma Romo Unavailable Marjorie Weston DO Unavailable Porsha Garrido MD Unavailable Encounter Details Date Type Department Care Team (Late Contact Info) Description 10/28/2014 Therapy Visit [facility] [address] [place] [address] AlvaradohansaMeir DO [address] [place] [address] Social History Tobacco Use Types Packs/Day Years Used Date Smoking Tobacco: Never Smokeless Tobacco: Never Alcohol Use Standard Drinks/Week Comments Yes 0 (1 standard drink = 0.6 oz pur e alcohol) occasionally Comments No Sex and Gender Information Value Date Recorded Sex Assigned at Not on file Legal Sex Female 12:18 PM SORTING SUPERVISOR Gender Identity Female 01/16/2019 9:49 AM CDT Sexual Orientation Not on file 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 Not on file Not on f ile documented as of this encounter Plan of Treatment Upcoming Encounters Date Type Department Care Team (Late st Contact Info) Description 10/05/2024 10:00 AM CDT Office Visit [facility] Breast Care - Surgery [address] [place] [phone] Satnam Nicole MD [address] [phone] 10/17/2024 8:15 AM CDT Video Visit [facility] Medical Group - Family Medicine [address] [place] [address] Porsha Garrido MD [address] [place] [address] documented as of this encounter Visit Diagnoses Not on filedocumented in this encounter Additional Health Concerns Infection Onset Date Last Indicated Resolved Time COVID-19 Under Investigation 04/01/2020 04/01/2020 04/02/2020 2:40 PM SORTING SUPERVISOR COVID-19 Confirmed 04/01/2020 04/01/2020 0 4:34 AM SORTING SUPERVISOR documented as of this encounter Care Teams Therapist Relationship Specialty Start Date End Date Porsha Garrido MD [address] [place] [address] PCP - General 01/31/11 Porsha Garrido MD [address] [place] [address] [place] [address] PCP - Attributed-UHC Commercial 09/13/18 11/01/19 Joselito Gold MD [address] [place] [address] PCP - Attributed-Cigna 07/15/19 08/14/19 Porsha Garrido MD [address] [place] [address] PCP - Attributed-Cigna 08/15/19 07/13/20 Jolie Marrero PA-C [address] [place] [address] [place] [phone] PCP - Attributed-Cigna 07/14/20 08/13/20 Porsha Garrido MD [address] [place] [address] PCP - Attributed-Cigna 08/14/20 12/29/21 Porsha Garrido MD [address] [place] [address] PCP - Attributed-[place] Commercial 05/16/22 08/31/22 Porsha Garrido MD [address] [place] [address] [place] [address] PCP - Attributed-[place] Commercial 11/13/22 07/31/24 Porsha Garrido MD [address] [place] [address] PCP - Attributed-Exclusive Choice 10/29/16 09/14/17 Carina Rey MD [address] [place] [address] [place] [address] Obstetrics and Gynecology 10/27/11 07/14/20 Gary Burgess MD [address] [place] [address] [address] [place] [address] Gastroenterology 08/22/13 Evelyn García, RN Vice President Of Brand Management 01/05/15 06/07/24 Joselito Gold MD [address] [place] [address] Obstetrics and Gynecology 07/15/20 5 Joselito Casarez MD [address] [place] [address] [address] [place] [address] Hematology and Oncology 09/03/22 05/26/23 Michelle Nogueira, EDGER OPERATOR-KIT ASSEMBLER [address] [place] [address] [address] [place] [address] Nurse Practitioner Nurse Practitioner Adult Health 09/03/22 Paloma Romo Care Coordination Specialist Care Management 12/13/23 12/13/23 Marjorie Weston DO [address] [phone] Rheumatology 05/31/24 documented as of this encounter
--- OUTSIDE RECORDS SUMMARY | 2024-09-19 01:03 | XMS_ITS | Encounter Summary ---
Author Organization [facility] Address [address] [facility] [place] [address] Care Team Providers Care Television Agent Name Role Phone Porsha Garrido MD Primary Care Provider Carina Rey MD Unavailable Unavailable Gary Burgess MD Unavailable [phone] Evelyn García RN Unavailable [phone] Porsha Garrido MD Unavailable [phone] Josleito Gold MD Unavailable [phone] Porsha Garrido MD Unavailable [phone] Joselito Gold MD Unavailable [phone] Jolie Marrero PA-C Unavailable [phone] Porsha Garrido MD Unavailable [phone] Porsha Garrido MD Unavailable [phone] Joselito Casarez MD Unavailable Unavailable Michelle Nogueira ROVING WEIGHT GAUGER-ENERGY AND SUSTAINABILITY MANAGER Unavailable [phone] Porsha Garrido MD Unavailable [phone] Paloma Romo Unavailable Marjorie Weston DO Unavailable [...] on file Legal Sex Female 12:18 PM FURNACE COMBUSTION ANALYST Gender Identity Female 01/16/2019 9:49 AM CDT Sexual Orientation Not on file 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 on file Not on f ile documented as of this encounter Plan of Treatment Upcoming Encounters Date Type Department Care Team (Late Contact Info) Description 10/05/2024 10:00 AM CDT Office Visit [facility] Breast Care - Surgery [address] [place] [phone] Satnam Nicole MD [address] [place] [phone] 10/17/2024 8:15 AM CDT Video Visit [facility] Medical Group - Family Medicine [address] [place] [address] Porsha Garrido MD [address] [place] [address] documented as of this encounter Visit Diagnoses Not on filedocumented in this encounter Additional Health Concerns Infection Onset Date Last Indicated Resolved Time COVID-19 Under Investigation 04/01/2020 04/01/2020 04/02/2020 2:40 PM FURNACE COMBUSTION ANALYST COVID-19 Confirmed 04/01/2020 04/01/2020 0 4:34 AM FURNACE COMBUSTION ANALYST documented as of this encounter Care Teams Television Agent Relationship Specialty Start Date End Date Porsha Garrido MD [address] [place] [address] PCP - General 01/31/11 Porsha Garrido MD [address] [place] [address] PCP - Attributed-UHC Commercial 09/13/18 11/01/19 Joselito Gold MD [address] [place] [address] PCP - Attributed-Cigna 07/15/19 08/14/19 Porsha Garrido MD [address] [place] [address] PCP - Attributed-Cigna 08/15/19 07/13/20 Jolie Marrero PA-C [address] [place] [phone] PCP - Attributed-Cigna 07/14/20 08/13/20 Porsha Garrido MD [address] [place] [address] PCP - Attributed-Cigna 08/14/20 12/29/21 Porsha Garrido MD [address] [place] [address] PCP - Attributed-[place] Commercial 05/16/22 08/31/22 Porsha Garrido MD [address] [place] [address] [address] [place] [address] PCP - Attributed-[place] Commercial 11/13/22 07/31/24 Porsha Garrido MD [address] [place] [address] [address] [place] [address] PCP - Attributed-Exclusive Choice 10/29/16 09/14/17 Carina Rey MD [address] [place] [address] [address] [place] [address] Obstetrics and Gynecology 10/27/11 07/14/20 Gary Burgess MD [address] [place] [address] [address] [place] [address] Gastroenterology 08/22/13 Evelyn García RN Brass And Wind Instrument Repairer 01/05/15 06/07/24 Joselito Gold MD [address] [place] [address] Obstetrics and Gynecology 07/15/20 5 Joselito Casarez MD [address] [place] [address] [address] [place] [address] Hematology and Oncology 09/03/22 05/26/23 Michelle Nogueira, ROVING WEIGHT GAUGER-ENERGY AND SUSTAINABILITY MANAGER [address] [place] [address] [address] [place] [address] Nurse Practitioner Nurse Practitioner Adult Health 09/03/22 Paloma Romo Care Coordination Specialist Care Management 12/13/23 12/13/23 Marjorie Weston DO [address] [place] [address] [address] [place] [address] Rheumatology 05/31/24 documented as of this encounter
--- OUTSIDE RECORDS SUMMARY | 2024-09-19 01:03 | XMS_ITS | Encounter Summary ---
Author Organization [facility] Address [address] [facility] [place] [address] Care Team Providers Care Treating Engineer Name Role Phone Porsha Garrido MD Primary Care Provider Carina Rey MD Unavailable Unavailable Gary Burgess MD Unavailable [phone] Evelyn García RN Unavailable [phone] Porsha Garrido MD Unavailable [phone] Joselito Gold MD Unavailable [phone] Porsha Garrido MD Unavailable [phone] Joselito Gold MD Unavailable [phone] Jolie Marrero PA-C Unavailable [phone] Porsha Garrido MD Unavailable [phone] Porsha Garrido MD Unavailable [phone] Joselito Casarez MD Unavailable Unavailable Michelle Nogueira STEEL FITTER-POUNDMASTER Unavailable [phone] Porsha Garrido MD Unavailable [phone] Paloma Romo Unavailable Marjorie Weston DO Unavailable Porsha Garrido MD Unavailable Encounter Details Date Type Department Care Team (Late Contact Info) Description 10/05/2012 [facility] Outpatient Visit [facility] REHAB [address] [place] [address] Unknown, Provider Social History Tobacco Use Types Packs/Day Years Used Date Smoking Tobacco: Never Smokeless Tobacco: Never Alcohol Use Standard Drinks/Week Comments Yes 0 (1 standard drink = 0.6 oz pur e alcohol) occasionally Comments No Sex and Gender Information Value Date Recorded Sex Assigned at Not on file Legal Sex Female 12:18 PM APPRAISER BOATS AND MARINE Gender Identity Female 01/16/2019 9:49 AM CDT Sexual Orientation Not on file 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 on file Not on f ile documented as of this encounter Plan of Treatment Upcoming Encounters Date Type Department Care Team (Late st Contact Info) Description 10/05/2024 10:00 AM CDT Office Visit [facility] Breast Care - Surgery [address] [place] [phone] Satnam Nicole MD [address] [place] [phone] 10/17/2024 8:15 AM CDT Video Visit [facility] Medical Group - Family Medicine [address] [place] [address] Porsha Garrido MD [address] [place] [address] documented as of this encounter Visit Diagnoses Not on filedocumented in this encounter Additional Health Concerns Infection Onset Date Last Indicated Resolved Time COVID-19 Under Investigation 04/01/2020 04/01/2020 04/02/2020 2:40 PM APPRAISER BOATS AND MARINE COVID-19 Confirmed 04/01/2020 04/01/2020 11/27/202 0 4:34 AM APPRAISER BOATS AND MARINE documented as of this encounter Care Teams Treating Engineer Relationship Specialty Start Date End Date Porsha Garrido MD [address] [place] [address] PCP - General 01/31/11 Porsha Garrido MD [address] [place] [address]66 PCP - Attributed-UHC Commercial 09/13/18 11/01/19 Joselito Gold MD [address] [place] [address]99 PCP - Attributed-Cigna 07/15/19 08/14/19 Porsha Garrido MD [address] [place] [address] 11398 PCP - Attributed-Cigna 08/15/19 07/13/20 Jolie Marrero PA-C [address] [place] [phone] PCP - Attributed-Cigna 07/14/20 08/13/20 Porsha Garrido MD [address] [place] [address]19 PCP - Attributed-Cigna 08/14/20 12/29/21 Porsha Garrido MD [address] [place] [address] PCP - Attributed-[place] Commercial 05/16/22 08/31/22 Porsha Garrido MD [address] [place] [address] [place] [address] PCP - Attributed-[place] Commercial 11/13/22 07/31/24 Porsha Garrido MD [address] [place] [address]20 PCP - Attributed-Exclusive Choice 10/29/16 09/14/17 Carina Rey MD [address] [place] [address] Obstetrics and Gynecology 10/27/11 07/14/20 Gary Burgess MD [address] [place] [address] Gastroenterology 08/22/13 Evelyn García, RN Jewelry Department Supervisor 01/05/15 06/07/24 Joselito Gold MD [address] [place] [address] Obstetrics and Gynecology 07/15/20 5 Joselito Casarez MD [address] [place] [phone] Hematology and Oncology 09/03/22 05/26/23 Michelle Nogueira, STEEL FITTER-POUNDMASTER [address] [place] [address] [place] [address] Nurse Practitioner Nurse Practitioner Adult Health 09/03/22 Paloma Romo Care Coordination Specialist Care Management 12/13/23 12/13/23 Marjorie Weston DO [address] [facility] [address] [place] [phone] Rheumatology 05/31/24 documented as of this encounter
--- OUTSIDE RECORDS SUMMARY | 2024-09-19 01:04 | XMS_ITS | Encounter Summary ---
Author Organization [facility] Address [address] [place] [address] Care Team Providers Care Strategy Associate Name Role Phone Porsha Garrido MD Primary Care Provider Encounter Details Date Type Department Care Team (Late st Contact Info) Description 08/15/[address] [facility] Pediatrics [place] [address] [facility] [place] [address] [place] [phone] Deshawn Kitchen MD NO ADDRESS ON FILE Social History Tobacco Use Types Packs/Day Years Used Date Smoking Tobacco: Never Assessed Comments Unknown Sex and Gender Information Value Date Recorded Sex Assigned at Not on file Legal Sex Female 3:08 AM ECONOMETRICIAN Gender Identity Not on file Sexual Orientation Not on file documented as of this encounter Plan of Treatment Upcoming Encounters Date Type Department Care Team (Late st Contact Info) Description 06/25/2025 3:10 PM ECONOMETRICIAN Office Visit [facility] Gastroenterology [address] [place] [address] Gary Burgess MD [id number] [place] [address] 08/08/2025 10:30 AM CDT Office Visit [facility] Neurology [address] [place] [address] Rama De La Paz MD [address] [facility] [address] [place] [address] documented as of this encounter Visit Diagnoses Not on filedocumented in this encounter Additional Health Concerns Infection Onset Date Last Indicated Resolved Time R/O C. diff 05/21/2020 05/21/2020 05/21/2020 1:01 PM ECONOMETRICIAN R/O C. diff 10/31/2021 10/30/2021 10/31/2021 3:51 PM CDT R/O C. diff 09/01/2022 08/31/2022 09/01/2022 5:17 PM CDT documented as of this encounter Care Teams Strategy Associate Relationship Specialty Start Date End Date Porsha Garrido MD [address] [place] [address] PCP - General 03/04/09 documented as of this encounter
--- OUTSIDE RECORDS SUMMARY | 2024-09-19 01:04 | XMS_ITS | Encounter Summary ---
Author Organization [facility] Address [address] [place] [address] Care Team Providers Care Lumber Scaler Name Role Phone Porsha Garrido MD Primary Care Provider Encounter Details Date Type Department Care Team (Late st Contact Info) Description 12/09/1999 Outpatient Historical [facility] Pediatrics [place] [address] [facility] [place] [address] Ally Keller MD [address] [facility] [address] [place] [address] Social History Tobacco Use Types Packs/Day Years Used Date Smoking Tobacco: Never Assessed Comments Unknown Sex and Gender Information Value Date Recorded Sex Assigned at Not on file Legal Sex Female 3:08 AM METAL PICKLING EQUIPMENT OPERATOR Gender Identity Not on file Sexual Orientation Not on file documented as of this encounter Plan of Treatment Upcoming Encounters Date Type Department Care Team (Late st Contact Info) Description 06/25/2025 3:10 PM METAL PICKLING EQUIPMENT OPERATOR Office Visit [facility] Gastroenterology [place] [address] [place] [address] Gary Burgess MD [address] [id number] [place] [address] 08/08/2025 10:30 AM CDT Office Visit [facility] Neurology [address] [facility] [address] [place] [address] Rama De La Paz MD [address] [facility] [address] [place] [address] documented as of this encounter Visit Diagnoses Not on filedocumented in this encounter Additional Health Concerns Infection Onset Date Last Indicated Resolved Time R/O C. diff 05/21/2020 05/21/2020 05/21/2020 1:01 PM METAL PICKLING EQUIPMENT OPERATOR R/O C. diff 10/31/2021 10/30/2021 10/31/2021 3:51 PM CDT R/O C. diff 09/01/2022 08/31/2022 09/01/2022 5:17 PM CDT documented as of this encounter Care Teams Lumber Scaler Relationship Specialty Start Date End Date Porsha Garrido MD [address] [place] [address] PCP - General 03/04/09 documented as of this encounter
--- OUTSIDE RECORDS SUMMARY | 2024-09-19 01:04 | XMS_ITS | Encounter Summary ---
Author Organization [facility] Address [address] [place] [address] Care Team Providers Care Line Installation Supervisor Name Role Phone Porsha Garrido MD Primary Care Provider Encounter Details Date Type Department Care Team (Late st Contact Info) Description 10/13/2005 Outpatient Historical [facility] Pediatrics [place] [address] [facility] [place] [place] [address] [place] [address] Deshawn Kitchen MD NO ADDRESS ON FILE Social History Tobacco Use Types Packs/Day Years Used Date Smoking Tobacco: Never Assessed Comments Unknown Sex and Gender Information Value Date Recorded Sex Assigned at Not on file Legal Sex Female 3:08 AM TEACHER LIP READING Gender Identity Not on file Sexual Orientation Not on file documented as of this encounter Plan of Treatment Upcoming Encounters Date Type Department Care Team (Late st Contact Info) Description 06/25/2025 3:10 PM TEACHER LIP READING Office Visit [facility] Gastroenterology [place] [address] [place] [address] Gary Burgess MD [address] [id number] [place] [address] 08/08/2025 10:30 AM CDT Office Visit [facility] Neurology [address] [place] [address] Rama De La Paz MD [address] [facility] [address] [place] [address] documented as of this encounter Visit Diagnoses Not on filedocumented in this encounter Additional Health Concerns Infection Onset Date Last Indicated Resolved Time R/O C. diff 05/21/2020 05/21/2020 05/21/2020 1:01 PM TEACHER LIP READING R/O C. diff 10/31/2021 10/30/2021 10/31/2021 3:51 PM CDT R/O C. diff 09/01/2022 08/31/2022 09/01/2022 5:17 PM CDT documented as of this encounter Care Teams Line Installation Supervisor Relationship Specialty Start Date End Date Porsha Garrido MD [address] [place] [address] PCP - General 03/04/09 documented as of this encounter
--- OUTSIDE RECORDS SUMMARY | 2024-09-19 01:04 | XMS_ITS | Encounter Summary ---
Author Organization [facility] Address [address] [place] [address] Care Team Providers Care Plate Colorer Name Role Phone Porsha Garrido MD Primary Care Provider Carina Rey MD Unavailable Unavailable Gary Burgess MD Unavailable [phone] Evelyn García RN Unavailable [phone] Porsha Garrido MD Unavailable [phone] Joselito Gold MD Unavailable [phone] Porsha Garrido MD Unavailable [phone] Joselito Gold MD Unavailable [phone] Jolie Marrero PA-C Unavailable [phone] Porsha Garrido MD Unavailable [phone] Porsha Garrido MD Unavailable [phone] Joselito Casarez MD Unavailable Unavailable Michelle Nogueira RAIL SIGNAL DESIGNER-FRONT END MANAGER Unavailable [phone] Porsha Garrido MD Unavailable [phone] Paloma Romo Unavailable Marjorie Weston DO Unavailable Porsha Garrido MD Unavailable Encounter Details Date Type Department Care Team (Late st Contact Info) Description 08/26/2016 [facility] Outpatient Visit [facility] [address] [place] [address] Document, Scanned Social History Tobacco Use Types Packs/Day Years Used Date Smoking Tobacco: Never Smokeless Tobacco: Never Alcohol Use Standard Drinks/Week Comments No 0 (1 standard drink = 0.6 oz pur e alcohol) Comments No Sex and Gender Information Value Date Recorded Sex Assigned at Not on file Legal Sex Female 12:18 PM METAL SASH SETTER Gender Identity Female 01/16/2019 9:49 AM CDT Sexual Orientation Not on file 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 on file [...] Description 10/05/2024 10:00 AM CDT Office Visit [facility] Breast Care - Surgery [address] [place] [address] Satnam Nicole MD [address] [facility] [address] [place] [address] 10/17/2024 8:15 AM CDT Video Visit [facility] Medical Group - Family Medicine [address] [place] [address] [phone] Porsha Garrido MD [address] [place] [address] documented as of this encounter Visit Diagnoses Not on filedocumented in this encounter Additional Health Concerns Infection Onset Date Last Indicated Resolved Time COVID-19 Under Investigation 04/01/2020 04/01/2020 04/02/2020 2:40 PM METAL SASH SETTER COVID-19 Confirmed 04/01/2020 04/01/2020 0 4:34 AM METAL SASH SETTER documented as of this encounter Care Teams Plate Colorer Relationship Specialty Start Date End Date Porsha Garrido MD [address] [place] [address] PCP - General 01/31/11 Porsha Garrido MD [address] [place] [address] PCP - Attributed-[employer] Commercial 09/13/18 11/01/19 Joselito Gold MD [address] [place] [address] PCP - Attributed-[employer] 07/15/19 08/14/19 Porsha Garrido MD [address] [place] [address] PCP - Attributed-[employer] 08/15/19 07/13/20 Jolie Marrero PA-C [address] [place] [address] [place] [phone] PCP - Attributed-[employer] 07/14/20 08/13/20 oPrsha Garrido MD [address] [place] [address] PCP - Attributed-[employer] 08/14/20 12/29/21 Porsha Garrido MD [address] [place] [address] PCP - Attributed-[place] Commercial 05/16/22 08/31/22 Porsha Garrido MD [address] [place] [address] PCP - Attributed-[place] Commercial 11/13/22 07/31/24 Porsha Garrido MD [address] [place] [address] PCP - Attributed-[employer] 10/29/16 09/14/17 Carina Rey MD [address] [place] [address] Obstetrics and Gynecology 10/27/11 07/14/20 Gary Burgess MD [address] [place] [address] Gastroenterology 08/22/13 Evelyn García RN Bridge Welder 01/05/15 06/07/24 Joselito Gold MD [address] [place] [address] Obstetrics and Gynecology 07/15/20 5 Joselito Casarez MD [address] [facility] [address] [place] [address] Hematology and Oncology 09/03/22 05/26/23 Michelle Nogueira, RAIL SIGNAL DESIGNER-FRONT END MANAGER [address] [facility] [address] [place] [address] Nurse Practitioner Nurse Practitioner Adult Health 09/03/22 Paloma Romo Care Coordination Specialist Care Management 12/13/23 12/13/23 Marjorie Weston DO [address] [facility] [address] [place] [address] Rheumatology 05/31/24 documented as of this encounter
--- OUTSIDE RECORDS SUMMARY | 2024-09-19 01:04 | XMS_ITS | Encounter Summary ---
Author Organization [facility] Address [address] [place] [address] Care Team Providers Care Tank Calibrator Name Role Phone Porsha Garrido MD Primary Care Provider Encounter Details Date Type Department Care Team (Late st Contact Info) Description 04/16/1998 Outpatient Historical [facility] Pediatrics [place] [address] [facility] [place] [address] [place] [address] Deshawn Kitchen MD NO ADDRESS ON FILE Social History Tobacco Use Types Packs/Day Years Used Date Smoking Tobacco: Never Assessed Comments Unknown Sex and Gender Information Value Date Recorded Sex Assigned at Not on file Legal Sex Female 3:08 AM CURRICULUM MANAGER Gender Identity Not on file Sexual Orientation Not on file documented as of this encounter Plan of Treatment Upcoming Encounters Date Type Department Care Team (Late st Contact Info) Description 06/25/2025 3:10 PM CURRICULUM MANAGER Office Visit [facility] Gastroenterology [place] [address] [place] [address] Gary Burgess MD [address] [id number] [place] [address] 08/08/2025 10:30 AM CDT Office Visit [facility] Neurology [address] [place] [address] Rama De La Paz MD [address] [facility] [address] [place] [address] documented as of this encounter Visit Diagnoses Not on filedocumented in this encounter Additional Health Concerns Infection Onset Date Last Indicated Resolved Time R/O C. diff 05/21/2020 05/21/2020 05/21/2020 1:01 PM CURRICULUM MANAGER R/O C. diff 10/31/2021 10/30/2021 10/31/2021 3:51 PM CDT R/O C. diff 09/01/2022 08/31/2022 09/01/2022 5:17 PM CDT documented as of this encounter Care Teams Tank Calibrator Relationship Specialty Start Date End Date Porsha Garrido MD [address] [place] [address] PCP - General 03/04/09 documented as of this encounter
--- OUTSIDE RECORDS SUMMARY | 2024-09-19 01:04 | XMS_ITS | Encounter Summary ---
Author Organization [facility] Address [address] [place] [address] Care Team Providers Care Cement Finisher Name Role Phone Porsha Garrido MD Primary Care Provider Encounter Details Date Type Department Care Team (Late st Contact Info) Description 02/16/1999 Outpatient Historical [facility] Pediatrics [place] [address] [facility] [place] [address] Deshawn Kitchen MD NO ADDRESS ON FILE Social History Tobacco Use Types Packs/Day Years Used Date Smoking Tobacco: Never Assessed Comments Unknown Sex and Gender Information Value Date Recorded Sex Assigned at Not on file Legal Sex Female 3:08 AM LEGAL INTERNSHIP Gender Identity Not on file Sexual Orientation Not on file documented as of this encounter Plan of Treatment Upcoming Encounters Date Type Department Care Team (Late st Contact Info) Description 06/25/2025 3:10 PM LEGAL INTERNSHIP Office Visit [facility] Gastroenterology [place] [address] [place] [address] Gary Burgess MD [address] [id number] [place] [address] 08/08/2025 10:30 AM CDT Office Visit [facility] Neurology [address] [place] [address] Rama De La Paz MD [address] [facility] [address] [place] [address] documented as of this encounter Visit Diagnoses Not on filedocumented in this encounter Additional Health Concerns Infection Onset Date Last Indicated Resolved Time R/O C. diff 05/21/2020 05/21/2020 05/21/2020 1:01 PM LEGAL INTERNSHIP R/O C. diff 10/31/2021 10/30/2021 10/31/2021 3:51 PM CDT R/O C. diff 09/01/2022 08/31/2022 09/01/2022 5:17 PM CDT documented as of this encounter Care Teams Cement Finisher Relationship Specialty Start Date End Date Porsha Garrido MD [address] [place] [address] PCP - General 03/04/09 documented as of this encounter
--- OUTSIDE RECORDS SUMMARY | 2024-09-19 01:04 | XMS_ITS | Encounter Summary ---
Author Organization [facility] Address [address] [place] [address] Care Team Providers Care Manager Intel Name Role Phone Porsha Garrido MD Primary Care Provider Encounter Details Date Type Department Care Team (Late st Contact Info) Description 10/27/2005 Outpatient Historical [facility] Pediatrics [place] [address] [facility] [address] Deshawn Kitchen MD NO ADDRESS ON FILE Social History Tobacco Use Types Packs/Day Years Used Date Smoking Tobacco: Never Assessed Comments Unknown Sex and Gender Information Value Date Recorded Sex Assigned at Not on file Legal Sex Female 3:08 AM SCRUFF WORKER Gender Identity Not on file Sexual Orientation Not on file documented as of this encounter Plan of Treatment Upcoming Encounters Date Type Department Care Team (Late st Contact Info) Description 06/25/2025 3:10 PM SCRUFF WORKER Office Visit [facility] Gastroenterology [place] [address] [place] [address] Gary Burgess MD [address] [id number] [place] [address] 08/08/2025 10:30 AM CDT Office Visit [facility] Neurology [address] [place] [address] Rama De La Paz MD [address] [facility] [address] [place] [address] documented as of this encounter Visit Diagnoses Not on filedocumented in this encounter Additional Health Concerns Infection Onset Date Last Indicated Resolved Time R/O C. diff 05/21/2020 05/21/2020 05/21/2020 1:01 PM SCRUFF WORKER R/O C. diff 10/31/2021 10/30/2021 10/31/2021 3:51 PM CDT R/O C. diff 09/01/2022 08/31/2022 09/01/2022 5:17 PM CDT documented as of this encounter Care Teams Manager Intel Relationship Specialty Start Date End Date Porsha Garrido MD [address] [place] [address] PCP - General 03/04/09 documented as of this encounter
--- OUTSIDE RECORDS SUMMARY | 2024-09-19 01:04 | XMS_ITS | Encounter Summary ---
Author Organization [facility] Address [address] [place] [address] Care Team Providers Care Licensed Investment Sales Assistant Name Role Phone Porsha Garrido MD Primary Care Provider Encounter Details Date Type Department Care Team (Late st Contact Info) Description 11/17/2000 Outpatient Historical [facility] Pediatrics [place] [address] [facility] [place] [address] [place] [address] Deshawn Kitchen MD NO ADDRESS ON FILE Social History Tobacco Use Types Packs/Day Years Used Date Smoking Tobacco: Never Assessed Comments Unknown Sex and Gender Information Value Date Recorded Sex Assigned at Not on file Legal Sex Female 3:08 AM CERTIFIED PARALEGAL Gender Identity Not on file Sexual Orientation Not on file documented as of this encounter Plan of Treatment Upcoming Encounters Date Type Department Care Team (Late st Contact Info) Description 06/25/2025 3:10 PM CERTIFIED PARALEGAL Office Visit [facility] Gastroenterology [place] [address] [place] [address] Gary Burgess MD [address] [id number] [place] [address] 08/08/2025 10:30 AM CDT Office Visit [facility] Neurology [address] [place] [address] Rama De La Paz MD [address] [facility] [address] [place] [address] documented as of this encounter Visit Diagnoses Not on filedocumented in this encounter Additional Health Concerns Infection Onset Date Last Indicated Resolved Time R/O C. diff 05/21/2020 05/21/2020 05/21/2020 1:01 PM CERTIFIED PARALEGAL R/O C. diff 10/31/2021 10/30/2021 10/31/2021 3:51 PM CDT R/O C. diff 09/01/2022 08/31/2022 09/01/2022 5:17 PM CDT documented as of this encounter Care Teams Licensed Investment Sales Assistant Relationship Specialty Start Date End Date Porsha Garrido MD [address] [place] [address] PCP - General 03/04/09 documented as of this encounter
--- OUTSIDE RECORDS SUMMARY | 2024-09-19 01:04 | XMS_ITS | Encounter Summary ---
Author Organization [facility] Address [address] [place] [address] Care Team Providers Care Civil Engineering Designer Name Role Phone Porsha Garrido MD Primary Care Provider [phone] Encounter Details Date Type Department Care Team (Late st Contact Info) Description 08/07/2001 Outpatient Historical [facility] Pediatrics [place] [address] [facility] [place] [address] Deshawn Kitchen MD NO ADDRESS ON FILE Social History Tobacco Use Types Packs/Day Years Used Date Smoking Tobacco: Never Assessed Comments Unknown Sex and Gender Information Value Date Recorded Sex Assigned at Not on file Legal Sex Female 3:08 AM SUPERVISOR PUBLICATIONS PRODUCTION Gender Identity Not on file Sexual Orientation Not on file documented as of this encounter Plan of Treatment Upcoming Encounters Date Type Department Care Team (Late st Contact Info) Description 06/25/2025 3:10 PM SUPERVISOR PUBLICATIONS PRODUCTION Office Visit [facility] Gastroenterology [place] [address] [place] [address] Gary Burgess MD [address] [id number] [place] [address] 08/08/2025 10:30 AM CDT Office Visit [facility] Neurology [address] [place] [address] Rama De La Paz MD [address] [facility] [address] [place] [address] documented as of this encounter Visit Diagnoses Not on filedocumented in this encounter Additional Health Concerns Infection Onset Date Last Indicated Resolved Time R/O C. diff 05/21/2020 05/21/2020 05/21/2020 1:01 PM SUPERVISOR PUBLICATIONS PRODUCTION R/O C. diff 10/31/2021 10/30/2021 10/31/2021 3:51 PM CDT R/O C. diff 09/01/2022 08/31/2022 09/01/2022 5:17 PM CDT documented as of this encounter Care Teams Civil Engineering Designer Relationship Specialty Start Date End Date Porsha Garrido MD [address] [place] [address] PCP - General 03/04/09 documented as of this encounter
--- OUTSIDE RECORDS SUMMARY | 2024-09-19 01:04 | XMS_ITS | Encounter Summary ---
Author Organization [facility] Address [address] [place] [address] Care Team Providers Care Universal Grinder Tool Name Role Phone Porsha Garrido MD Primary Care Provider [phone] Encounter Details Date Type Department Care Team (Late st Contact Info) Description 08/18/1998 Outpatient Historical [facility] Pediatrics [place] [address] [facility] [place] [address] [place] [address] Brayan Solitario MD [address] [place] [address] Social History Tobacco Use Types Packs/Day Years Used Date Smoking Tobacco: Never Assessed Comments Unknown Sex and Gender Information Value Date Recorded Sex Assigned at Not on file Legal Sex Female 3:08 AM COATER OPERATOR INSULATION BOARD Gender Identity Not on file Sexual Orientation Not on file documented as of this encounter Plan of Treatment Upcoming Encounters Date Type Department Care Team (Late st Contact Info) Description 06/25/2025 3:10 PM COATER OPERATOR INSULATION BOARD Office Visit [facility] Gastroenterology [place] [address] [place] [address] Gary Burgess MD [address] [id number] [place] [address] 08/08/2025 10:30 AM CDT Office Visit [facility] Neurology [address] [facility] [address] [place] [address] Rama De La Paz MD [address] [facility] [address] [place] [address] documented as of this encounter Visit Diagnoses Not on filedocumented in this encounter Additional Health Concerns Infection Onset Date Last Indicated Resolved Time R/O C. diff 05/21/2020 05/21/2020 05/21/2020 1:01 PM COATER OPERATOR INSULATION BOARD R/O C. diff 10/31/2021 10/30/2021 10/31/2021 3:51 PM CDT R/O C. diff 09/01/2022 08/31/2022 09/01/2022 5:17 PM CDT documented as of this encounter Care Teams Universal Grinder Tool Relationship Specialty Start Date End Date Porsha Garrido MD [address] [place] [address] PCP - General 03/04/09 documented as of this encounter
--- OUTSIDE RECORDS SUMMARY | 2024-09-19 01:04 | XMS_ITS | Encounter Summary ---
Author Organization [facility] Address [address] [place] [address] Care Team Providers Care Dealer Development Manager Name Role Phone Porsha Garrido MD Primary Care Provider [phone] Encounter Details Date Type Department Care Team (Late st Contact Info) Description 05/14/2000 Outpatient Historical [facility] Pediatrics [place] [address] [facility] [place] [address] [place] [address] Deshawn Kitchen MD NO ADDRESS ON FILE Social History Tobacco Use Types Packs/Day Years Used Date Smoking Tobacco: Never Assessed Comments Unknown Sex and Gender Information Value Date Recorded Sex Assigned at Not on file Legal Sex Female 3:08 AM SURFBOARD MAKER Gender Identity Not on file Sexual Orientation Not on file documented as of this encounter Plan of Treatment Upcoming Encounters Date Type Department Care Team (Late st Contact Info) Description 06/25/2025 3:10 PM SURFBOARD MAKER Office Visit [facility] Gastroenterology [place] [address] [place] [address] Gary Burgess MD [address] [id number] [place] [address] 08/08/2025 10:30 AM CDT Office Visit [facility] Neurology [address] [place] [address] Rama De La Paz MD [address] [facility] [address] [place] [address] documented as of this encounter Visit Diagnoses Not on filedocumented in this encounter Additional Health Concerns Infection Onset Date Last Indicated Resolved Time R/O C. diff 05/21/2020 05/21/2020 05/21/2020 1:01 PM SURFBOARD MAKER R/O C. diff 10/31/2021 10/30/2021 10/31/2021 3:51 PM CDT R/O C. diff 09/01/2022 08/31/2022 09/01/2022 5:17 PM CDT documented as of this encounter Care Teams Dealer Development Manager Relationship Specialty Start Date End Date Porsha Garrido MD [address] [place] [address] PCP - General 03/04/09 documented as of this encounter
--- OUTSIDE RECORDS SUMMARY | 2024-09-19 01:04 | XMS_ITS | Encounter Summary ---
Author Organization [facility] Address [address] [place] [address] Care Team Providers Care Environmental Sustainability Manager Name Role Phone Porsha Garrido MD Primary Care Provider Encounter Details Date Type Department Care Team (Late st Contact Info) Description 01/17/1998 Outpatient Historical [facility] [place] [address] [facility] [place] [address] [place] [address] Eduardo Mason MD NO ADDRESS ON FILE Social History Tobacco Use Types Packs/Day Years Used Date Smoking Tobacco: Never Assessed Comments Unknown Sex and Gender Information Value Date Recorded Sex Assigned at Not on file Legal Sex Female 3:08 AM MANAGER MENTAL HEALTH Gender Identity Not on file Sexual Orientation Not on file documented as of this encounter Plan of Treatment Upcoming Encounters Date Type Department Care Team (Late st Contact Info) Description 06/25/2025 3:10 PM MANAGER MENTAL HEALTH Office Visit [facility] Gastroenterology [place] [address] [place] [address] Gary Burgess MD [address] [id number] [place] [address] 08/08/2025 10:30 AM CDT Office Visit [facility] Neurology [address] [place] [address] Rama De La Paz MD [address] [facility] [address] [place] [address] documented as of this encounter Visit Diagnoses Not on filedocumented in this encounter Additional Health Concerns Infection Onset Date Last Indicated Resolved Time R/O C. diff 05/21/2020 05/21/2020 05/21/2020 1:01 PM MANAGER MENTAL HEALTH R/O C. diff 10/31/2021 10/30/2021 10/31/2021 3:51 PM CDT R/O C. diff 09/01/2022 08/31/2022 09/01/2022 5:17 PM CDT documented as of this encounter Care Teams Environmental Sustainability Manager Relationship Specialty Start Date End Date Porsha Garrido MD [address] [place] [address] [address] [place] [address] PCP - General 03/04/09 documented as of this encounter
--- OUTSIDE RECORDS SUMMARY | 2024-09-19 01:04 | XMS_ITS | Encounter Summary ---
Author Organization [facility] Address [address] [place] [address] Care Team Providers Care Dipper Operator Name Role Phone Porsha Garrido MD Primary Care Provider Encounter Details Date Type Department Care Team (Late st Contact Info) Description 05/10/2001 Outpatient Historical [facility] [place] [address] [facility] [place] [phone] Deshawn Kitchen MD NO ADDRESS ON FILE Social History Tobacco Use Types Packs/Day Years Used Date Smoking Tobacco: Never Assessed Comments Unknown Sex and Gender Information Value Date Recorded Sex Assigned at Not on file Legal Sex Female 3:08 AM DITCH REPAIRER Gender Identity Not on file Sexual Orientation Not on file documented as of this encounter Plan of Treatment Upcoming Encounters Date Type Department Care Team (Late st Contact Info) Description 06/25/2025 3:10 PM DITCH REPAIRER Office Visit [facility] Gastroenterology [place] [address] [place] [address] Gary Burgess MD [address] [id number] [place] [address] 08/08/2025 10:30 AM CDT Office Visit [facility] Neurology [address] [place] [address] Rama De La Paz MD [address] [facility] [address] [place] [address] documented as of this encounter Visit Diagnoses Not on filedocumented in this encounter Additional Health Concerns Infection Onset Date Last Indicated Resolved Time R/O C. diff 05/21/2020 05/21/2020 05/21/2020 1:01 PM DITCH REPAIRER R/O C. diff 10/31/2021 10/30/2021 10/31/2021 3:51 PM CDT R/O C. diff 09/01/2022 08/31/2022 09/01/2022 5:17 PM CDT documented as of this encounter Care Teams Dipper Operator Relationship Specialty Start Date End Date Porsha Garrido MD [address] [place] [address] PCP - General 03/04/09 documented as of this encounter
--- OUTSIDE RECORDS SUMMARY | 2024-09-19 01:04 | XMS_ITS | Encounter Summary ---
Author Organization [facility] Address [address] [place] [address] Care Team Providers Care Data Communications Engineer Name Role Phone Porsha Garrido MD Primary Care Provider Encounter Details Date Type Department Care Team (Late st Contact Info) Description 08/15/2001 Outpatient Historical [facility] Pediatric[facility] [place] [address] [facility] [place] [address] Deshawn Kitchen MD NO ADDRESS ON FILE Social History Tobacco Use Types Packs/Day Years Used Date Smoking Tobacco: Never Assessed Comments Unknown Sex and Gender Information Value Date Recorded Sex Assigned at Not on file Legal Sex Female 3:08 AM HEAD BAKER Gender Identity Not on file Sexual Orientation Not on file documented as of this encounter Plan of Treatment Upcoming Encounters Date Type Department Care Team (Late st Contact Info) Description 06/25/2025 3:10 PM HEAD BAKER Office Visit [facility] Gastroenterology [place] [address] [place] [address] Gary Burgess MD [address] [id number] [place] [address] 08/08/2025 10:30 AM CDT Office Visit [facility] Neurology [address] [place] [address] Rama De La Paz MD [address] [facility] [address] [place] [address] documented as of this encounter Visit Diagnoses Not on filedocumented in this encounter Additional Health Concerns Infection Onset Date Last Indicated Resolved Time R/O C. diff 05/21/2020 05/21/2020 05/21/2020 1:01 PM HEAD BAKER R/O C. diff 10/31/2021 10/30/2021 10/31/2021 3:51 PM CDT R/O C. diff 09/01/2022 08/31/2022 09/01/2022 5:17 PM CDT documented as of this encounter Care Teams Data Communications Engineer Relationship Specialty Start Date End Date Porsha Garrido MD [address] [place] [address] PCP - General 03/04/09 documented as of this encounter
--- OUTSIDE RECORDS SUMMARY | 2024-09-19 01:04 | XMS_ITS | Encounter Summary ---
Author Organization [facility] Address [address] [place] [address] Care Team Providers Care Welfare Manager Name Role Phone Porsha Garrido MD Primary Care Provider Encounter Details Date Type Department Care Team (Late st Contact Info) Description 04/18/2000 Outpatient Historical [facility] Pediatric[facility] [place] [address] [facility] [place] [address] Deshawn Kitchen MD NO ADDRESS ON FILE Social History Tobacco Use Types Packs/Day Years Used Date Smoking Tobacco: Never Assessed Comments Unknown Sex and Gender Information Value Date Recorded Sex Assigned at Not on file Legal Sex Female 3:08 AM SECURITY SERGEANT Gender Identity Not on file Sexual Orientation Not on file documented as of this encounter Plan of Treatment Upcoming Encounters Date Type Department Care Team (Late st Contact Info) Description 06/25/2025 3:10 PM SECURITY SERGEANT Office Visit [facility] Gastroenterology [place] [address] [place] [address] Gary Burgess MD [address] [id number] [place] [address] 08/08/2025 10:30 AM CDT Office Visit [facility] Neurology [address] [place] [address] Rama De La Paz MD [address] [facility] [address] [place] [address] documented as of this encounter Visit Diagnoses Not on filedocumented in this encounter Additional Health Concerns Infection Onset Date Last Indicated Resolved Time R/O C. diff 05/21/2020 05/21/2020 05/21/2020 1:01 PM SECURITY SERGEANT R/O C. diff 10/31/2021 10/30/2021 10/31/2021 3:51 PM CDT R/O C. diff 09/01/2022 08/31/2022 09/01/2022 5:17 PM CDT documented as of this encounter Care Teams Welfare Manager Relationship Specialty Start Date End Date Porsha Garrido MD [address] [place] [address] PCP - General 03/04/09 documented as of this encounter
--- OUTSIDE RECORDS SUMMARY | 2024-09-19 01:04 | XMS_ITS | Encounter Summary ---
Author Organization [facility] Address [address] [place] [address] Care Team Providers Care Power Saw Mechanic Name Role Phone Porsha Garrido MD Primary Care Provider [phone] Encounter Details Date Type Department Care Team (Late st Contact Info) Description 07/09/1998 Outpatient Historical [facility] Pediatric[facility] [place] [address] [facility] [place] [address] Deshawn Kitchen MD NO ADDRESS ON FILE Social History Tobacco Use Types Packs/Day Years Used Date Smoking Tobacco: Never Assessed Comments Unknown Sex and Gender Information Value Date Recorded Sex Assigned at Not on file Legal Sex Female 3:08 AM OPHTHALMOLOGY ASSISTANT Gender Identity Not on file Sexual Orientation Not on file documented as of this encounter Plan of Treatment Upcoming Encounters Date Type Department Care Team (Late st Contact Info) Description 06/25/2025 3:10 PM OPHTHALMOLOGY ASSISTANT Office Visit [facility] Gastroenterology [place] [address] [place] [address] Gary Burgess MD [address] [id number] [place] [address] 08/08/2025 10:30 AM CDT Office Visit [facility] Neurology [address] [place] [address] Rama De La Paz MD [address] [facility] [address] [place] [address] documented as of this encounter Visit Diagnoses Not on filedocumented in this encounter Additional Health Concerns Infection Onset Date Last Indicated Resolved Time R/O C. diff 05/21/2020 05/21/2020 05/21/2020 1:01 PM OPHTHALMOLOGY ASSISTANT R/O C. diff 10/31/2021 10/30/2021 10/31/2021 3:51 PM CDT R/O C. diff 09/01/2022 08/31/2022 09/01/2022 5:17 PM CDT documented as of this encounter Care Teams Power Saw Mechanic Relationship Specialty Start Date End Date Porsha Garrido MD [address] [place] [address] PCP - General 03/04/09 documented as of this encounter
--- OUTSIDE RECORDS SUMMARY | 2024-09-19 01:04 | XMS_ITS | Encounter Summary ---
Author Organization [facility] Address [address] [place] [address] Care Team Providers Care Ticket Machine Operator Name Role Phone Porsha Garrido MD Primary Care Provider Encounter Details Date Type Department Care Team (Late st Contact Info) Description 01/26/2001 Outpatient Historical [facility] Pediatrics [place] [address] [facility] [place] [address] Ally Keller MD [address] [facility] [address] [place] [address] Social History Tobacco Use Types Packs/Day Years Used Date Smoking Tobacco: Never Assessed Comments Unknown Sex and Gender Information Value Date Recorded Sex Assigned at Not on file Legal Sex Female 3:08 AM CLOTHING BUSHELER Gender Identity Not on file Sexual Orientation Not on file documented as of this encounter Plan of Treatment Upcoming Encounters Date Type Department Care Team (Late st Contact Info) Description 06/25/2025 3:10 PM CLOTHING BUSHELER Office Visit [facility] Gastroenterology [place] [address] [place] [address] Gary Burgess MD [address] [id number] [place] [address] 08/08/2025 10:30 AM CDT Office Visit [facility] Neurology [address] [facility] [address] [place] [address] Rama De La Paz MD [address] [facility] [address] [place] [address] documented as of this encounter Visit Diagnoses Not on filedocumented in this encounter Additional Health Concerns Infection Onset Date Last Indicated Resolved Time R/O C. diff 05/21/2020 05/21/2020 05/21/2020 1:01 PM CLOTHING BUSHELER R/O C. diff 10/31/2021 10/30/2021 10/31/2021 3:51 PM CDT R/O C. diff 09/01/2022 08/31/2022 09/01/2022 5:17 PM CDT documented as of this encounter Care Teams Ticket Machine Operator Relationship Specialty Start Date End Date Porsha Garrido MD [address] [place] [phone] PCP - General 03/04/09 documented as of this encounter
--- OUTSIDE RECORDS SUMMARY | 2024-09-19 01:04 | XMS_ITS | Encounter Summary ---
Author Organization [facility] Address [address] [place] [address] Care Team Providers Care Corrections Nurse Name Role Phone Porsha Garrido MD Primary Care Provider Encounter Details Date Type Department Care Team (Late st Contact Info) Description 07/17/2005 Outpatient Historical [facility] Demond Desai Jr., MD [address] [place] [address] Er, Authorized P NO ADDRESS ON FILE NONINFEC GASTROENTERIT NEC (Primary Dx) Social History Tobacco Use Types Packs/Day Years Used Date Smoking Tobacco: Never Assessed Comments Unknown Sex and Gender Information Value Date Recorded Sex Assigned at Not on file Legal Sex Female 3:08 AM GENETICS NURSE Gender Identity Not on file Sexual Orientation Not on file documented as of this encounter Plan of Treatment Upcoming Encounters Date Type Department Care Team (Late Contact Info) Description 06/25/2025 3:10 PM GENETICS NURSE Office Visit [facility] Gastroenterology [place] [address] [place] [address] Gary Burgess MD [address] [facility] [id number] [place] [address] 08/08/2025 10:30 AM CDT Office Visit [facility] Neurology [address] [place] [address] Rama De La Paz MD [address] [facility] [address] [place] [address] documented as of this encounter Procedures Procedure Name Priority Date/Time Associated Diagnosis Comments HCG QUALITATIVE, URINE Routine 07/17/2005 2:56 PM GENETICS NURSE URINALYSIS W/REFLEX MICROSCOPIC Routine 07/17/2005 2:48 PM GENETICS NURSE documented in this encounter Results * HCG QUALITATIVE, URINE (07/17/2005 2:56 PM GENETICS NURSE) HCG QUAL URINE Negative Negative INTER FACE SYSTEM SPECIFIC GRAVITY UA 1.025 1.001 - 1.035 INTERFACE SYSTEM HCG QUAL URINE COMMENT INTERFACE SYSTEM Comment: Urine in lab 07/17/2005 2:56 PM GENETICS NURSE Historical Provider URINE ORDERABLES Final Resul t Performing Organization Address [facility] de Phone Number INTERFACE SYSTEM Refer to clinic/hospital department * (ABNORMAL) URINALYSIS (07/17/2005 2:48 PM GENETICS NURSE) COLOR UA Yellow INTERFACE SYSTEM CLARITY UA [...] 4 /HPF INTERFACE SYSTEM 07/17/2005 2:48 PM GENETICS NURSE Historical Provider URINE ORDERABLES Final Resul t INTERFACE SYSTEM Refer to clinic/hospital department documented in this encounter Visit Diagnoses Diagnosis Other and unspecified noninfectious gastroenteritis and colitis(558.9)- Primary Other and unspecified noninfectious gastroenteritis and colitis documented in this encounter Additional Health Concerns Infection Onset Date Last Indicated Resolved Time R/O C. diff 05/21/2020 05/21/2020 05/21/2020 1:01 PM GENETICS NURSE R/O C. diff 10/31/2021 10/30/2021 10/31/2021 3:51 PM CDT R/O C. diff 09/01/2022 08/31/2022 09/01/2022 5:17 PM CDT documented as of this encounter Care Teams Corrections Nurse Relationship Specialty Start Date End Date Porsha Garrido MD [address] [place] [address] PCP - General 03/04/09 documented as of this encounter
--- OUTSIDE RECORDS SUMMARY | 2024-09-19 01:04 | XMS_ITS | Encounter Summary ---
Author Organization [facility] Address [address] [place] [address] Care Team Providers Care Supervisor Litharge Name Role Phone Porsha Garrido MD Primary Care Provider Encounter Details Date Type Department Care Team (Late st Contact Info) Description 12/01/2000 Outpatient Historical [facility] [place] [address] [facility] [place] [address] Deshawn Kitchen MD NO ADDRESS ON FILE Social History Tobacco Use Types Packs/Day Years Used Date Smoking Tobacco: Never Assessed Comments Unknown Sex and Gender Information Value Date Recorded Sex Assigned at Not on file Legal Sex Female 3:08 AM STITCHDOWNS TOE FORMER Gender Identity Not on file Sexual Orientation Not on file documented as of this encounter Plan of Treatment Upcoming Encounters Date Type Department Care Team (Late st Contact Info) Description 06/25/2025 3:10 PM STITCHDOWNS TOE FORMER Office Visit [facility] Gastroenterology [place] [address] [place] [address] Gary Burgess MD [address] [id number] [place] [address] 08/08/2025 10:30 AM CDT Office Visit [facility] Neurology [address] [place] [address] Rama De La Paz MD [address] [facility] [address] [place] [address] documented as of this encounter Visit Diagnoses Not on filedocumented in this encounter Additional Health Concerns Infection Onset Date Last Indicated Resolved Time R/O C. diff 05/21/2020 05/21/2020 05/21/2020 1:01 PM STITCHDOWNS TOE FORMER R/O C. diff 10/31/2021 10/30/2021 10/31/2021 3:51 PM CDT R/O C. diff 09/01/2022 08/31/2022 09/01/2022 5:17 PM CDT documented as of this encounter Care Teams Supervisor Litharge Relationship Specialty Start Date End Date Porsha Garrido MD [address] [place] [address] PCP - General 03/04/09 documented as of this encounter
--- OUTSIDE RECORDS SUMMARY | 2024-09-19 01:04 | XMS_ITS | Encounter Summary ---
Author Organization [facility] Address [address] [place] [address] Care Team Providers Care Big Data Developer Name Role Phone Porsha Garrido MD Primary Care Provider Encounter Details Date Type Department Care Team (Late st Contact Info) Description 03/08/2002 Outpatient Historical [facility] Pediatrics [place] [address] [facility] [place] [address] Deshawn Kitchen MD NO ADDRESS ON FILE Social History Tobacco Use Types Packs/Day Years Used Date Smoking Tobacco: Never Assessed Comments Unknown Sex and Gender Information Value Date Recorded Sex Assigned at Not on file Legal Sex Female 3:08 AM MANAGER STUDY Gender Identity Not on file Sexual Orientation Not on file documented as of this encounter Plan of Treatment Upcoming Encounters Date Type Department Care Team (Late st Contact Info) Description 06/25/2025 3:10 PM MANAGER STUDY Office Visit [facility] Gastroenterology [place] [address] [place] [address] Gary Burgess MD [address] [id number] [place] [address] 08/08/2025 10:30 AM CDT Office Visit [facility] Neurology [address] [place] [address] Rama De La Paz MD [address] [facility] [address] [place] [address] documented as of this encounter Visit Diagnoses Not on filedocumented in this encounter Additional Health Concerns Infection Onset Date Last Indicated Resolved Time R/O C. diff 05/21/2020 05/21/2020 05/21/2020 1:01 PM MANAGER STUDY R/O C. diff 10/31/2021 10/30/2021 10/31/2021 3:51 PM CDT R/O C. diff 09/01/2022 08/31/2022 09/01/2022 5:17 PM CDT documented as of this encounter Care Teams Big Data Developer Relationship Specialty Start Date End Date Porsha Garrido MD [address] [place] [address] PCP - General 03/04/09 documented as of this encounter
--- OUTSIDE RECORDS SUMMARY | 2024-09-19 01:04 | XMS_ITS | Encounter Summary ---
Author Organization [facility] Address [address] [place] [address] Care Team Providers Care Radio Television Announcer Name Role Phone Porsha Garrido MD Primary Care Provider [phone] Encounter Details Date Type Department Care Team (Late st Contact Info) Description 12/26/1998 Outpatient Historical [facility] Pediatrics [place] [address] [facility] [place] [address] Brayan Solitario MD [address] [place] [place] [address] Social History Tobacco Use Types Packs/Day Years Used Date Smoking Tobacco: Never Assessed Comments Unknown Sex and Gender Information Value Date Recorded Sex Assigned at Not on file Legal Sex Female 3:08 AM ADMINISTRATIVE SALES ASSISTANT Gender Identity Not on file Sexual Orientation Not on file documented as of this encounter Plan of Treatment Upcoming Encounters Date Type Department Care Team (Late st Contact Info) Description 06/25/2025 3:10 PM ADMINISTRATIVE SALES ASSISTANT Office Visit [facility] Gastroenterology [place] [address] [place] [address] Gary Burgess MD [address] [id number] [place] [address] 08/08/2025 10:30 AM CDT Office Visit [facility] Neurology [address] [facility] [address] [place] [address] Rama De La Paz MD [address] [facility] [address] [place] [address] documented as of this encounter Visit Diagnoses Not on filedocumented in this encounter Additional Health Concerns Infection Onset Date Last Indicated Resolved Time R/O C. diff 05/21/2020 05/21/2020 05/21/2020 1:01 PM ADMINISTRATIVE SALES ASSISTANT R/O C. diff 10/31/2021 10/30/2021 10/31/2021 3:51 PM CDT R/O C. diff 09/01/2022 08/31/2022 09/01/2022 5:17 PM CDT documented as of this encounter Care Teams Radio Television Announcer Relationship Specialty Start Date End Date Porsha Garrido MD [address] [place] [address] PCP - General 03/04/09 documented as of this encounter
--- OUTSIDE RECORDS SUMMARY | 2024-09-19 01:04 | XMS_ITS | Encounter Summary ---
Author Organization [facility] Address [address] [place] [address] Care Team Providers Care Long Chain Beamer Name Role Phone Porsha Garrido MD Primary Care Provider Encounter Details Date Type Department Care Team (Late st Contact Info) Description 10/13/2005 Outpatient Historical [facility] Pediatrics [place] [address] [facility] [place] [address] Deshwan Kitchen MD NO ADDRESS ON FILE Social History Tobacco Use Types Packs/Day Years Used Date Smoking Tobacco: Never Assessed Comments Unknown Sex and Gender Information Value Date Recorded Sex Assigned at Not on file Legal Sex Female 3:08 AM FILE KEEPER Gender Identity Not on file Sexual Orientation Not on file documented as of this encounter Plan of Treatment Upcoming Encounters Date Type Department Care Team (Late st Contact Info) Description 06/25/2025 3:10 PM FILE KEEPER Office Visit [facility] Gastroenterology [place] [address] [place] [address] Gary Burgess MD [address] [id number] [place] [address] 08/08/2025 10:30 AM CDT Office Visit [facility] Neurology [address] [place] [address] Rama De La Paz MD [address] [facility] [address] [place] [address] documented as of this encounter Visit Diagnoses Not on filedocumented in this encounter Additional Health Concerns Infection Onset Date Last Indicated Resolved Time R/O C. diff 05/21/2020 05/21/2020 05/21/2020 1:01 PM FILE KEEPER R/O C. diff 10/31/2021 10/30/2021 10/31/2021 3:51 PM CDT R/O C. diff 09/01/2022 08/31/2022 09/01/2022 5:17 PM CDT documented as of this encounter Care Teams Long Chain Beamer Relationship Specialty Start Date End Date Porsha Garrido MD [address] [place] [address] PCP - General 03/04/09 documented as of this encounter
--- OUTSIDE RECORDS SUMMARY | 2024-09-19 01:04 | XMS_ITS | Encounter Summary ---
Author Organization [facility] Address [address] [place] [address] Care Team Providers Care Mine Wedge Sawyer Name Role Phone Porsha Garrido MD Primary Care Provider Encounter Details Date Type Department Care Team (Late st Contact Info) Description 12/27/2001 Outpatient Historical [facility] Pediatrics [place] [address] [facility] [place] [address] [place] [phone] Deshawn Kitchen MD NO ADDRESS ON FILE Social History Tobacco Use Types Packs/Day Years Used Date Smoking Tobacco: Never Assessed Comments Unknown Sex and Gender Information Value Date Recorded Sex Assigned at Not on file Legal Sex Female 3:08 AM PIPE CUTTER Gender Identity Not on file Sexual Orientation Not on file documented as of this encounter Plan of Treatment Upcoming Encounters Date Type Department Care Team (Late st Contact Info) Description 06/25/2025 3:10 PM PIPE CUTTER Office Visit [facility] Gastroenterology [place] [address] [place] [address] Gary Burgess MD [address] [id number] [place] [address] 08/08/2025 10:30 AM CDT Office Visit [facility] Neurology [address] [place] [address] Rama De La Paz MD [address] [facility] [address] [place] [address] documented as of this encounter Visit Diagnoses Not on filedocumented in this encounter Additional Health Concerns Infection Onset Date Last Indicated Resolved Time R/O C. diff 05/21/2020 05/21/2020 05/21/2020 1:01 PM PIPE CUTTER R/O C. diff 10/31/2021 10/30/2021 10/31/2021 3:51 PM CDT R/O C. diff 09/01/2022 08/31/2022 09/01/2022 5:17 PM CDT documented as of this encounter Care Teams Mine Wedge Sawyer Relationship Specialty Start Date End Date Porsha Garrido MD [address] [place] [address] PCP - General 03/04/09 documented as of this encounter
--- OUTSIDE RECORDS SUMMARY | 2024-09-19 01:04 | XMS_ITS | Encounter Summary ---
Author Organization [facility] Address [address] [place] [address] Care Team Providers Care Tile Power Shear Operator Name Role Phone Porsha Garrido MD Primary Care Provider Encounter Details Date Type Department Care Team (Late st Contact Info) Description 10/13/2005 Outpatient Historical [facility] Pediatrics [place] [address] [facility] [place] [address] [place] [phone] Deshawn Kitchen MD NO ADDRESS ON FILE Social History Tobacco Use Types Packs/Day Years Used Date Smoking Tobacco: Never Assessed Comments Unknown Sex and Gender Information Value Date Recorded Sex Assigned at Not on file Legal Sex Female 3:08 AM SHIFT SUPERINTENDENT Gender Identity Not on file Sexual Orientation Not on file documented as of this encounter Plan of Treatment Upcoming Encounters Date Type Department Care Team (Late st Contact Info) Description 06/25/2025 3:10 PM SHIFT SUPERINTENDENT Office Visit [facility] Gastroenterology [place] [address] [place] [address] Gary Burgess MD [address] [id number] [place] [address] 08/08/2025 10:30 AM CDT Office Visit [facility] Neurology [address] [place] [address] Rama De La Paz MD [address] [facility] [address] [place] [address] documented as of this encounter Visit Diagnoses Not on filedocumented in this encounter Additional Health Concerns Infection Onset Date Last Indicated Resolved Time R/O C. diff 05/21/2020 05/21/2020 05/21/2020 1:01 PM SHIFT SUPERINTENDENT R/O C. diff 10/31/2021 10/30/2021 10/31/2021 3:51 PM CDT R/O C. diff 09/01/2022 08/31/2022 09/01/2022 5:17 PM CDT documented as of this encounter Care Teams Tile Power Shear Operator Relationship Specialty Start Date End Date Porsha Garrido MD [address] [place] [address] PCP - General 03/04/09 documented as of this encounter
--- OUTSIDE RECORDS SUMMARY | 2024-09-19 01:04 | XMS_ITS | Encounter Summary ---
Author Organization Address [address] [place] [address] Care Team Providers Care Industrial Service Technician Name Role Phone Porsha Garirdo MD Primary Care Provider Encounter Details Date Type Department Care Team (Late st Contact Info) Description 03/27/1999 Outpatient Historical [facility] Pediatrics [place] [address] [facility] [place] [address] [place] [address] Ally Keller MD [address] [facility] [address] [place] [address] Social History Tobacco Use Types Packs/Day Years Used Date Smoking Tobacco: Never Assessed Comments Unknown Sex and Gender Information Value Date Recorded Sex Assigned at Not on file Legal Sex Female 3:08 AM MANAGER TRUCK Gender Identity Not on file Sexual Orientation Not on file documented as of this encounter Plan of Treatment Upcoming Encounters Date Type Department Care Team (Late st Contact Info) Description 06/25/2025 3:10 PM MANAGER TRUCK Office Visit [facility] Gastroenterology [place] [address] [place] [address] Gary Burgess MD [address] [id number] [place] [address] 08/08/2025 10:30 AM CDT Office Visit [facility] Neurology [address] [facility] [address] [place] [address] Rama De La Paz MD [address] [facility] [address] [place] [address] documented as of this encounter Visit Diagnoses Not on filedocumented in this encounter Additional Health Concerns Infection Onset Date Last Indicated Resolved Time R/O C. diff 05/21/2020 05/21/2020 05/21/2020 1:01 PM MANAGER TRUCK R/O C. diff 10/31/2021 10/30/2021 10/31/2021 3:51 PM CDT R/O C. diff 09/01/2022 08/31/2022 09/01/2022 5:17 PM CDT documented as of this encounter Care Teams Industrial Service Technician Relationship Specialty Start Date End Date Porsha Garrido MD [address] [place] [address] PCP - General 03/04/09 documented as of this encounter
--- OUTSIDE RECORDS SUMMARY | 2024-09-19 01:04 | XMS_ITS | Encounter Summary ---
Author Organization [facility] Address [address] [place] [address] Care Team Providers Care Professional Nursing Tutor Name Role Phone Porsha Garrido MD Primary Care Provider Encounter Details Date Type Department Care Team (Late st Contact Info) Description 01/02/1998 Outpatient Historical [facility] Pediatrics [place] [address] [facility] [place] [address] [place] [address] Deshawn Kitchen MD NO ADDRESS ON FILE Social History Tobacco Use Types Packs/Day Years Used Date Smoking Tobacco: Never Assessed Comments Unknown Sex and Gender Information Value Date Recorded Sex Assigned at Not on file Legal Sex Female 3:08 AM MACHINING MANAGER Gender Identity Not on file Sexual Orientation Not on file documented as of this encounter Plan of Treatment Upcoming Encounters Date Type Department Care Team (Late st Contact Info) Description 06/25/2025 3:10 PM MACHINING MANAGER Office Visit [facility] Gastroenterology [place] [address] [place] [address] Gary Burgess MD [address] [id number] [place] [address] 08/08/2025 10:30 AM CDT Office Visit [facility] Neurology [address] [place] [address] Rama De La Paz MD [address] [facility] [address] [place] [address] documented as of this encounter Visit Diagnoses Not on filedocumented in this encounter Additional Health Concerns Infection Onset Date Last Indicated Resolved Time R/O C. diff 05/21/2020 05/21/2020 05/21/2020 1:01 PM MACHINING MANAGER R/O C. diff 10/31/2021 10/30/2021 10/31/2021 3:51 PM CDT R/O C. diff 09/01/2022 08/31/2022 09/01/2022 5:17 PM CDT documented as of this encounter Care Teams Professional Nursing Tutor Relationship Specialty Start Date End Date Porsha Garrido MD [address] [place] [address] PCP - General 03/04/09 documented as of this encounter
--- OUTSIDE RECORDS SUMMARY | 2024-09-19 01:04 | XMS_ITS | Encounter Summary ---
Author Organization [facility] Address [address] [place] [address] Care Team Providers Care Hanger Name Role Phone Porsha Garrido MD Primary Care Provider Encounter Details Date Type Department Care Team (Late st Contact Info) Description 04/03/2001 Outpatient Historical [facility] Pediatrics [place] [address] [facility] [place] [address] Deshawn Kitchen MD NO ADDRESS ON FILE Social History Tobacco Use Types Packs/Day Years Used Date Smoking Tobacco: Never Assessed Comments Unknown Sex and Gender Information Value Date Recorded Sex Assigned at Not on file Legal Sex Female 3:08 AM TIRE BLADDER MAKER Gender Identity Not on file Sexual Orientation Not on file documented as of this encounter Plan of Treatment Upcoming Encounters Date Type Department Care Team (Late st Contact Info) Description 06/25/2025 3:10 PM TIRE BLADDER MAKER Office Visit [facility] Gastroenterology [place] [address] [place] [address] Gary Burgess MD [address] [id number] [place] [address] 08/08/2025 10:30 AM CDT Office Visit [facility] Neurology [address] [place] [address] Rama De La Paz MD [address] [facility] [address] [place] [address] documented as of this encounter Visit Diagnoses Not on filedocumented in this encounter Additional Health Concerns Infection Onset Date Last Indicated Resolved Time R/O C. diff 05/21/2020 05/21/2020 05/21/2020 1:01 PM TIRE BLADDER MAKER R/O C. diff 10/31/2021 10/30/2021 10/31/2021 3:51 PM CDT R/O C. diff 09/01/2022 08/31/2022 09/01/2022 5:17 PM CDT documented as of this encounter Care Teams Hanger Relationship Specialty Start Date End Date Porsha Garrido MD [address] [place] [address] PCP - General 03/04/09 documented as of this encounter
--- OUTSIDE RECORDS SUMMARY | 2024-09-19 01:04 | XMS_ITS | Encounter Summary ---
Author Organization [facility] Address [address] [facility] [place] [address] Care Team Providers Care Research Scientist Name Role Phone Porsha Garrido MD Primary Care Provider Carina Rey MD Unavailable Unavailable Gary Burgess MD Unavailable [phone] Evelyn García RN Unavailable [phone] Porsha Garrido MD Unavailable Joselito Gold MD Unavailable [phone] Jolie Marrero PA-C Unavailable [phone] Porsha Garrido MD Unavailable Porsha Garrido MD Unavailable Joselito Casarez MD Unavailable Unavailable Michelle Nogueira APRN-CASER IN Unavailable [phone] Porsha Garrido MD Unavailable Paloma Romo Unavailable [phone] Marjorie Weston DO Unavailable Reason for Visit * Reason Onset Date Comments MEDICATION REFILL 12/05/2019 Encounter Details Date Type Department Care Team (Late st Contact Info) Description 12/05/2019 Refill 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 Breast Care - Surgery [address] [place] [phone] Satnam Nicole MD [address] [place] [address] 10/17/2024 8:15 AM CDT Video Visit [facility] Medical [facility] - Family Medicine [address] [place] [address] Porsha Garrido MD [address] [place] [address] documented as of this encounter Visit Diagnoses Diagnosis JOHN (generalized anxiety disorder) Generalized anxiety disorder documented in this encounter Additional Health Concerns Infection Onset Date Last Indicated Resolved Time COVID-19 Under Investigation 04/01/2020 04/01/2020 04/02/2020 2:40 PM SUPERVISOR EVAPORATOR COVID-19 Confirmed 04/01/2020 04/01/2020 0 4:34 AM SUPERVISOR EVAPORATOR documented as of this encounter Care Teams Research Scientist Relationship Specialty Start Date End Date Porsha Garrido MD [address] [place] [address] PCP - General 01/31/11 Porsha Garrido MD [address] [place] [address] PCP - Attributed-[employer] 08/15/19 07/13/20 Jolie Marrero PA-C [address] [place] [phone] PCP - Attributed-[employer] 07/14/20 08/13/20 Porsha Garrido MD [address] [place] [address] [phone] PCP - Attributed-[employer] 08/14/20 12/29/21 Porsha Garrido MD [address] [place] [address] PCP - Attributed-[employer] 05/16/22 08/31/22 Porsha Garrido MD [address] [place] [address] PCP - Attributed-[employer] 11/13/22 07/31/24 Carina Rey MD [address] [place] [address] Obstetrics and Gynecology 10/27/11 07/14/20 Gary Burgess MD [address] [place] [address] [place] [address] Gastroenterology 08/22/13 Evelyn García, RN Commodity Trader 01/05/15 06/07/24 Joselito Gold MD [address] [place] [address] Obstetrics and Gynecology 07/15/20 5 Joselito Casarez MD [address] [facility] [address] [place] [address] Hematology and Oncology 09/03/22 05/26/23 Michelle Nogueira, JUMPBASTING ARMHOLE BASTER-CASER [place] [address] [facility] [address] [place] [address] Nurse Practitioner Nurse Practitioner Adult Health 09/03/22 Paloma Romo Care Coordination Specialist Care Management 12/13/23 12/13/23 Marjorie [place] DO [address] [facility] [address] [place] [phone] Rheumatology 05/31/24 documented as of this encounter
--- OUTSIDE RECORDS SUMMARY | 2024-09-19 01:04 | XMS_ITS | Encounter Summary ---
Author Organization [facility] Address [address] [place] [address] Care Team Providers Care Indoor Landscaper/Gardener Name Role Phone Porsha Garrido MD Primary Care Provider Encounter Details Date Type Department Care Team (Late Contact Info) Description 09/17/2024 Results Follow-Up [facility] Gastroenterology [place] [address] [facility] [address] [place] [address] Gary Burgess MD [address] [facility] [id number] [place] [address] PATHOLOGY Social History Tobacco Use Types Packs/Day Years Used Date Smoking Tobacco: Never Smokeless Tobacco: Never Alcohol Use Standard Drinks/Week Comments Yes 0 (1 standard drink = 0.6 oz pur e alcohol) maybe once a month Feeling Safe Answer Date Recorded Are you in a relationship wi th someone who hurts you emotionally and/or physically? No 09/12/2024 Comments No Sex and Gender Information Value Date Recorded Sex Assigned at Not on file Legal Sex Female 3:08 AM WELL FLOW OPERATOR Gender Identity Not on file Sexual Orientation Not on file documented as of this encounter Plan of Treatment Upcoming Encounters Date Type Department Care Team (Late Contact Info) Description 06/25/2025 3:10 PM WELL FLOW OPERATOR Office Visit [facility] Gastroenterology [place] [address] [place] [address] Gary Burgess MD [address] [facility] [address] [id number] [place] [address] 08/08/2025 10:30 AM CDT Office Visit [facility] Neurology [address] [facility] [address] [place] [address] Rama De La Paz MD [address] [facility] [address] [place] [address] documented as of this encounter Visit Diagnoses Not on filedocumented in this encounter Care Teams Indoor Landscaper/Gardener Relationship Specialty Start Date End Date Porsha Garrido MD [address] [place] [address] PCP - General 03/04/09 documented as of this encounter
--- OUTSIDE RECORDS SUMMARY | 2024-09-19 01:04 | XMS_ITS | Encounter Summary ---
Author Organization [facility] Address [address] [place] [address] Care Team Providers Care Awning Finisher Name Role Phone Porsha Garrido MD Primary Care Provider [phone] Encounter Details Date Type Department Care Team (Late st Contact Info) Description 01/22/2002 Outpatient Historical [facility] Pediatrics [place] [address] [facility] [place] [address] Deshawn Kitchen MD NO ADDRESS ON FILE Social History Tobacco Use Types Packs/Day Years Used Date Smoking Tobacco: Never Assessed Comments Unknown Sex and Gender Information Value Date Recorded Sex Assigned at Not on file Legal Sex Female 3:08 AM STUDENT UNION CONSULTANT Gender Identity Not on file Sexual Orientation Not on file documented as of this encounter Plan of Treatment Upcoming Encounters Date Type Department Care Team (Late st Contact Info) Description 06/25/2025 3:10 PM STUDENT UNION CONSULTANT Office Visit [facility] Gastroenterology [place] [address] [place] [address] Gary Burgess MD [address] [id number] [place] [address] 08/08/2025 10:30 AM CDT Office Visit [facility] Neurology [address] [place] [address] Rama De La Paz MD [address] [facility] [address] [place] [address] documented as of this encounter Visit Diagnoses Not on filedocumented in this encounter Additional Health Concerns Infection Onset Date Last Indicated Resolved Time R/O C. diff 05/21/2020 05/21/2020 05/21/2020 1:01 PM STUDENT UNION CONSULTANT R/O C. diff 10/31/2021 10/30/2021 10/31/2021 3:51 PM CDT R/O C. diff 09/01/2022 08/31/2022 09/01/2022 5:17 PM CDT documented as of this encounter Care Teams Awning Finisher Relationship Specialty Start Date End Date Porsha Garrido MD [address] [place] [phone] PCP - General 03/04/09 documented as of this encounter
--- OUTSIDE RECORDS SUMMARY | 2024-09-19 01:04 | XMS_ITS | Encounter Summary ---
Author Organization Address [address] [place] [address] Care Team Providers Care Industrial Nurse Name Role Phone Porsha Garrido MD Primary Care Provider [phone] Encounter Details Date Type Department Care Team (Late st Contact Info) Description 12/02/1997 Outpatient Historical [facility] Pediatrics [place] [address] [facility] [place] [address] Deshawn Kitchen MD NO ADDRESS ON FILE Social History Tobacco Use Types Packs/Day Years Used Date Smoking Tobacco: Never Assessed Comments Unknown Sex and Gender Information Value Date Recorded Sex Assigned at Not on file Legal Sex Female 3:08 AM MAILROOM ASSOCIATE Gender Identity Not on file Sexual Orientation Not on file documented as of this encounter Plan of Treatment Upcoming Encounters Date Type Department Care Team (Late st Contact Info) Description 06/25/2025 3:10 PM MAILROOM ASSOCIATE Office Visit [facility] Gastroenterology [place] [address] [place] [address] Gary Burgess MD [address] [id number] [place] [address] 08/08/2025 10:30 AM CDT Office Visit [facility] Neurology [address] [place] [address] Rama De La Paz MD [address] [facility] [address] [place] [address] documented as of this encounter Visit Diagnoses Not on filedocumented in this encounter Additional Health Concerns Infection Onset Date Last Indicated Resolved Time R/O C. diff 05/21/2020 05/21/2020 05/21/2020 1:01 PM MAILROOM ASSOCIATE R/O C. diff 10/31/2021 10/30/2021 10/31/2021 3:51 PM CDT R/O C. diff 09/01/2022 08/31/2022 09/01/2022 5:17 PM CDT documented as of this encounter Care Teams Industrial Nurse Relationship Specialty Start Date End Date Porsha Garrido MD [address] [place] [address] PCP - General 03/04/09 documented as of this encounter
--- OUTSIDE RECORDS SUMMARY | 2024-09-19 01:04 | XMS_ITS | Encounter Summary ---
Author Organization [facility] Address [address] [place] [address] Care Team Providers Care Vp Strategic Partnerships Name Role Phone Porsha Garrido MD Primary Care Provider Encounter Details Date Type Department Care Team (Late st Contact Info) Description 06/25/1998 Outpatient Historical [facility] Pediatrics [place] [address] [facility] [place] [address] Deshawn Kitchen MD NO ADDRESS ON FILE Social History Tobacco Use Types Packs/Day Years Used Date Smoking Tobacco: Never Assessed Comments Unknown Sex and Gender Information Value Date Recorded Sex Assigned at Not on file Legal Sex Female 3:08 AM 6TH GRADE TEACHER Gender Identity Not on file Sexual Orientation Not on file documented as of this encounter Plan of Treatment Upcoming Encounters Date Type Department Care Team (Late st Contact Info) Description 06/25/2025 3:10 PM 6TH GRADE TEACHER Office Visit [facility] Gastroenterology [place] [address] [place] [address] Gary Burgess MD [address] [id number] [place] [address] 08/08/2025 10:30 AM CDT Office Visit [facility] Neurology [address] [place] [address] Rama De La Paz MD [address] [facility] [address] [place] [address] documented as of this encounter Visit Diagnoses Not on filedocumented in this encounter Additional Health Concerns Infection Onset Date Last Indicated Resolved Time R/O C. diff 05/21/2020 05/21/2020 05/21/2020 1:01 PM 6TH GRADE TEACHER R/O C. diff 10/31/2021 10/30/2021 10/31/2021 3:51 PM CDT R/O C. diff 09/01/2022 08/31/2022 09/01/2022 5:17 PM CDT documented as of this encounter Care Teams Vp Strategic Partnerships Relationship Specialty Start Date End Date Porsha Garrido MD [address] [place] [address] PCP - General 03/04/09 documented as of this encounter
--- OUTSIDE RECORDS SUMMARY | 2024-09-19 01:04 | XMS_ITS | Encounter Summary ---
Author Organization [facility] Address [address] [place] [address] Care Team Providers Care Streetcar Starter Name Role Phone Porsha Garrido MD Primary Care Provider [phone] Encounter Details Date Type Department Care Team (Late st Contact Info) Description 05/11/2002 Outpatient Historical [facility] ([facility]3] Pediatrics [place] [address] [facility] [place] [address] [place] [address] Deshawn Kitchen MD NO ADDRESS ON FILE Social History Tobacco Use Types Packs/Day Years Used Date Smoking Tobacco: Never Assessed Comments Unknown Sex and Gender Information Value Date Recorded Sex Assigned at Not on file Legal Sex Female 3:08 AM TOOL ROOM SUPERVISOR Gender Identity Not on file Sexual Orientation Not on file documented as of this encounter Plan of Treatment Upcoming Encounters Date Type Department Care Team (Late st Contact Info) Description 06/25/2025 3:10 PM TOOL ROOM SUPERVISOR Office Visit [facility] Gastroenterology [place] [address] [place] [address] Gary Burgess MD [address] [id number] [place] [address] 08/08/2025 10:30 AM CDT Office Visit [facility] Neurology [address] [place] [address] Rama De La Paz MD [address] [facility] [address] [place] [address] documented as of this encounter Visit Diagnoses Not on filedocumented in this encounter Additional Health Concerns Infection Onset Date Last Indicated Resolved Time R/O C. diff 05/21/2020 05/21/2020 05/21/2020 1:01 PM TOOL ROOM SUPERVISOR R/O C. diff 10/31/2021 10/30/2021 10/31/2021 3:51 PM CDT R/O C. diff 09/01/2022 08/31/2022 09/01/2022 5:17 PM CDT documented as of this encounter Care Teams Streetcar Starter Relationship Specialty Start Date End Date Porsha Garrido MD [address] [place] [phone] PCP - General 03/04/09 documented as of this encounter
--- OUTSIDE RECORDS SUMMARY | 2024-09-19 01:04 | XMS_ITS | Encounter Summary ---
Author Organization [facility] Address [address] [place] [address] Care Team Providers Care China Decorator Name Role Phone Porsha Garrido MD Primary Care Provider Encounter Details Date Type Department Care Team (Late st Contact Info) Description 10/23/[address] [facility] Pediatrics [place] [address] [facility] [place] [address] Deshawn Kitchen MD NO ADDRESS ON FILE Social History Tobacco Use Types Packs/Day Years Used Date Smoking Tobacco: Never Assessed Comments Unknown Sex and Gender Information Value Date Recorded Sex Assigned at Not on file Legal Sex Female 3:08 AM MICROMATIC HONE OPERATOR Gender Identity Not on file Sexual Orientation Not on file documented as of this encounter Plan of Treatment Upcoming Encounters Date Type Department Care Team (Late st Contact Info) Description 06/25/2025 3:10 PM MICROMATIC HONE OPERATOR Office Visit [facility] Gastroenterology [place] [address] [place] [address] Gary Burgess MD [address] [id number] [place] [address] 08/08/2025 10:30 AM CDT Office Visit [facility] Neurology [address] [place] [address] Rama De La Paz MD [address] [facility] [address] [place] [address] documented as of this encounter Visit Diagnoses Not on filedocumented in this encounter Additional Health Concerns Infection Onset Date Last Indicated Resolved Time R/O C. diff 05/21/2020 05/21/2020 05/21/2020 1:01 PM MICROMATIC HONE OPERATOR R/O C. diff 10/31/2021 10/30/2021 10/31/2021 3:51 PM CDT R/O C. diff 09/01/2022 08/31/2022 09/01/2022 5:17 PM CDT documented as of this encounter Care Teams China Decorator Relationship Specialty Start Date End Date Porsha Garrido MD [address] [place] [id number] PCP - General 03/04/09 documented as of this encounter
--- OUTSIDE RECORDS SUMMARY | 2024-09-19 01:04 | XMS_ITS | Encounter Summary ---
Author Organization [facility] Address [address] [place] [address] Care Team Providers Care Concession Manager Name Role Phone Porsha Garrido MD Primary Care Provider Encounter Details Date Type Department Care Team (Late st Contact Info) Description 03/20/2001 Outpatient Historical [facility] Pediatrics [place] [address] [facility] [place] [address] [place] [address] Deshawn Kitchen MD NO ADDRESS ON FILE Social History Tobacco Use Types Packs/Day Years Used Date Smoking Tobacco: Never Assessed Comments Unknown Sex and Gender Information Value Date Recorded Sex Assigned at Not on file Legal Sex Female 3:08 AM MEDICINE AIDE Gender Identity Not on file Sexual Orientation Not on file documented as of this encounter Plan of Treatment Upcoming Encounters Date Type Department Care Team (Late st Contact Info) Description 06/25/2025 3:10 PM MEDICINE AIDE Office Visit [facility] Gastroenterology [place] [address] [place] [address] Gary Burgess MD [address] [id number] [place] [address] 08/08/2025 10:30 AM CDT Office Visit [facility] Neurology [address] [place] [address] Rama De La Paz MD [address] [facility] [address] [place] [address] documented as of this encounter Visit Diagnoses Not on filedocumented in this encounter Additional Health Concerns Infection Onset Date Last Indicated Resolved Time R/O C. diff 05/21/2020 05/21/2020 05/21/2020 1:01 PM MEDICINE AIDE R/O C. diff 10/31/2021 10/30/2021 10/31/2021 3:51 PM CDT R/O C. diff 09/01/2022 08/31/2022 09/01/2022 5:17 PM CDT documented as of this encounter Care Teams Concession Manager Relationship Specialty Start Date End Date Porsha Garrido MD [address] [place] [phone] PCP - General 03/04/09 documented as of this encounter
--- OUTSIDE RECORDS SUMMARY | 2024-09-19 01:04 | XMS_ITS | Encounter Summary ---
Author Organization [facility] Address [address] [place] [address] Care Team Providers Care Sales Team Leader Name Role Phone Porsha Garrido MD Primary Care Provider Encounter Details Date Type Department Care Team (Late st Contact Info) Description 06/23/1999 Outpatient Historical [facility] Pediatrics [place] [address] [facility] [place] [address] Deshawn Kitchen MD NO ADDRESS ON FILE Social History Tobacco Use Types Packs/Day Years Used Date Smoking Tobacco: Never Assessed Comments Unknown Sex and Gender Information Value Date Recorded Sex Assigned at Not on file Legal Sex Female 3:08 AM SPINNING FRAME TENDER Gender Identity Not on file Sexual Orientation Not on file documented as of this encounter Plan of Treatment Upcoming Encounters Date Type Department Care Team (Late st Contact Info) Description 06/25/2025 3:10 PM SPINNING FRAME TENDER Office Visit [facility] Gastroenterology [place] [address] [place] [address] Gary Burgess MD [address] [id number] [place] [address] 08/08/2025 10:30 AM CDT Office Visit [facility] Neurology [address] [place] [address] Rama De La Paz MD [address] [facility] [address] [place] [address] documented as of this encounter Visit Diagnoses Not on filedocumented in this encounter Additional Health Concerns Infection Onset Date Last Indicated Resolved Time R/O C. diff 05/21/2020 05/21/2020 05/21/2020 1:01 PM SPINNING FRAME TENDER R/O C. diff 10/31/2021 10/30/2021 10/31/2021 3:51 PM CDT R/O C. diff 09/01/2022 08/31/2022 09/01/2022 5:17 PM CDT documented as of this encounter Care Teams Sales Team Leader Relationship Specialty Start Date End Date Porsha Garrido MD [address] [place] [phone] PCP - General 03/04/09 documented as of this encounter
--- OUTSIDE RECORDS SUMMARY | 2024-09-19 01:05 | XMS_ITS | Encounter Summary ---
Author Organization [facility] Address [address] [place] [address] Care Team Providers Care Tile Conduit Layer Name Role Phone Porsha Garrido MD Primary Care Provider Encounter Details Date Type Department Care Team (Late st Contact Info) Description 06/15/[address] [facility] Pediatrics [place] [address] [facility] [place] [phone] Deshawn Kitchen MD NO ADDRESS ON FILE [...] PETROLEUM PRODUCTS SALES REPRESENTATIVE Office Visit [facility] Gastroenterology [place] [address] [place] [address] Gary Burgess MD [address] [id number] [place] [address] 08/08/2025 10:30 AM CDT Office Visit [facility] Neurology [address] [place] [address] Rama De La Paz MD [address] [facility] [address] [place] [address] documented as of this encounter Visit Diagnoses Not on filedocumented in this encounter Additional Health Concerns Infection Onset Date Last Indicated Resolved Time R/O C. diff 05/21/2020 05/21/2020 05/21/2020 1:01 PM PETROLEUM PRODUCTS SALES REPRESENTATIVE R/O C. diff 10/31/2021 10/30/2021 10/31/2021 3:51 PM CDT R/O C. diff 09/01/2022 08/31/2022 09/01/2022 5:17 PM CDT documented as of this encounter Care Teams Tile Conduit Layer Relationship Specialty Start Date End Date Porsha Garrido MD [address] [place] [id number] PCP - General 03/04/09 documented as of this encounter
--- OUTSIDE RECORDS SUMMARY | 2024-09-19 01:05 | XMS_ITS | Encounter Summary ---
Author Organization [facility] Address [address] [place] [address] Care Team Providers Care Casing Running Machine Tender Name Role Phone Unavailable Primary Care Provider Unavailabl e Prior Encounters Date Type Department Care Team Description 01/31/2024 Travel 01/31/2024 2:00 PM CDT Office Visit [facility] [address] [place] [address] Princess Soto DDS Dental caries, unspecified (Primary Dx) 01/30/2024 10:00 AM CDT Office Visit [facility] [address] [place] [address] Princess Soto DDS Encounter for dental examination and cleaning without abnormal findings (Primary Dx); Dental caries, unspecified 07/18/2023 Travel 07/18/2023 2:30 PM PRESCHOOL ASSISTANT DIRECTOR Office Visit [facility] [address] [place] [address] Princess Soto DDS Encounter for dental examination and cleaning without abnormal findings (Primary Dx) 12/02/2022 8:00 AM CDT Office Visit [facility] [address] [place] [address] Princess Soto DDS 02/18/2022 Travel 02/18/2022 4:00 PM CDT Office Visit [facility] [address] [place] [address] Princess Soto DDS 11/21/2020 Travel 11/21/2020 10:30 AM CDT Office Visit [facility] [address] [place], [place] [address] [address] Heri Napoles, [facility] 11/21/2020 10:15 AM CDT Office Visit [facility] [address] [place], [place] [address] [address] Javy Keita, SARAH 06/04/2019 Converted CPS Chart Documents [facility] [address] [place], [place] [address] [address] <No scans attached> 06/04/2019 Converted 13x Documents [facility] [address] [place], [place] [address] [address] <No scans attached> Last Filed Vital Signs [...] Description 10/24/2024 9:15 AM CDT Office Visit [facility] [address] [facility] [place] [address] Anahi Leigh, DDS [address] [place] [address] [place] [address] Procedures Procedure Name Priority Date/Time Associated Diagnosis [...] OF FLUORIDE VARNISH Routine 07/18/2023 2:30 PM PRESCHOOL ASSISTANT DIRECTOR PROPHYLAXIS - ADULT Routine 07/18/2023 2 :30 PM PRESCHOOL ASSISTANT DIRECTOR Encounter for dental examination and cleaning without abnormal findings BITEWINGS - FOUR RADIOGRAPHIC IMAGES Routine 07/18/2023 2:30 PM PRESCHOOL ASSISTANT DIRECTOR PERIODIC ORAL EVALUATION - ESTABLISHED PATIENT Routine 07/18/2023 2:30 PM PRESCHOOL ASSISTANT DIRECTOR Encounter for dental examination and cleaning without [...] ORAL HYGIENE INSTRUCTIONS Routine 2019 2:00 AM PRESCHOOL ASSISTANT DIRECTOR TOPICAL APPLICATION OF FLUORIDE VARNISH Routine 06/25/2019 2:00 AM PRESCHOOL ASSISTANT DIRECTOR PROPHYLAXIS - ADULT Routine 06/25/2019 2 :00 AM PRESCHOOL ASSISTANT DIRECTOR COMPREHENSIVE ORAL EVALUATION - NEW OR ESTABLISHED PATIENT Routine 06/25/2019 2:00 AM PRESCHOOL ASSISTANT DIRECTOR PANORAMIC RADIOGRAPHIC IMAGE Routine 06/25/2019 2:00 AM PRESCHOOL ASSISTANT DIRECTOR INTRAORAL - COMPREHENSIVE SERIES OF RADIOGRAPHIC IMAGES Routine 06/25/2019 2:00 AM PRESCHOOL ASSISTANT DIRECTOR INTRAORAL PHOTO Routine 06/25/2019 2:00 AM PRESCHOOL ASSISTANT DIRECTOR INTRAORAL PHOTO Routine 06/25/2019 2:00 AM PRESCHOOL ASSISTANT DIRECTOR INTRAORAL PHOTO Routine 06/25/2019 2:00 AM PRESCHOOL ASSISTANT DIRECTOR INTRAORAL PHOTO Routine 06/25/2019 2:00 AM PRESCHOOL ASSISTANT DIRECTOR 30 O COMPOSITE FILLING Routine 0 2:00 AM PRESCHOOL ASSISTANT DIRECTOR CANCELLED APPOINTMENT Routine 06/20/2019 2:00 AM PRESCHOOL ASSISTANT DIRECTOR Visit Diagnoses Diagnosis Start Date Encounter for dental examination and cleaning without abnormal findings 07/18/2023 Encounter for dental examination and cleaning without abnormal findings 01/30/2024 Dental caries, unspecified 01/30/2024 Dental caries, unspecified 01/31/2024 Insurance PPO
--- OUTSIDE RECORDS SUMMARY | 2024-09-19 01:05 | XMS_ITS | Encounter Summary ---
Author Organization [email or web address] Address [address] [place] [address] Care Team Providers Care Embedded Software Test Engineer Name Role Phone Porsha Garrido MD Primary Care Provider Encounter Details Date Type Department Care Team (Late st Contact Info) Description 07/16/2005 Outpatient Historical [facility] Enrico Felix MD [address] [facility] [place] [address] Er, Authorized P NO ADDRESS ON FILE URIN TRACT INFECTION NOS (Primary Dx) Social History Tobacco Use Types Packs/Day Years Used Date Smoking Tobacco: Never Assessed Comments Unknown Sex and Gender Information Value Date Recorded Sex Assigned at Not on file Legal Sex Female 3:08 AM RUFFLING HEMMER AUTOMATIC Gender Identity Not on file Sexual Orientation Not on file documented as of this encounter Plan of Treatment Upcoming Encounters Date Type Department Care Team (Late st Contact Info) Description 06/25/2025 3:10 PM RUFFLING HEMMER AUTOMATIC Office Visit [facility] Gastroenterology [place] [address] [place] [address] Gary Burgess MD [address] [id number] [place] [address] 08/08/2025 10:30 AM CDT Office Visit [facility] Neurology [address] [place] [address] Rama De La Paz MD [address] [place] [address] documented as of this encounter Procedures Procedure Name Priority Date/Time Associated Diagnosis Comments URINALYSIS WITH MICROSCOPIC Routine 07/16/2005 1:15 PM RUFFLING HEMMER AUTOMATIC HCG QUALITATIVE, URINE Routine 07/16/2005 1:15 PM RUFFLING HEMMER AUTOMATIC CBC WITH DIFFERENTIAL Routine 07/16/2005 12:35 PM RUFFLING HEMMER AUTOMATIC CBC WITH DIFFERENTIAL Routine 07/16/2005 12:35 PM RUFFLING HEMMER AUTOMATIC documented in this encounter Results * HCG QUALITATIVE, URINE (07/16/2005 1:15 PM RUFFLING HEMMER AUTOMATIC) HCG QUAL URINE Negative Negative INTER FACE SYSTEM SPECIFIC GRAVITY UA 1.030 1.001 - 1.035 INTERFACE SYSTEM 07/16/2005 1:15 PM RUFFLING HEMMER AUTOMATIC Enrico Felix MD URINE ORDERABLES Final Result INTERFACE SYSTEM Refer to clinic/hospital department * (ABNORMAL) URINALYSIS WITH MICROSCOPIC (07/16/2005 1:15 PM RUFFLING HEMMER AUTOMATIC) COLOR UA Yellow INTERFACE SYSTEM CLARITY UA [...] 5-10 /HPF INTERFACE SYSTEM 07/16/2005 1:15 PM RUFFLING HEMMER AUTOMATIC [facility] Provider URINE ORDERABLES Final Resul t Performing Organization Address [facility] Phone Number INTERFACE SYSTEM Refer to clinic/hospital department * (ABNORMAL) CBC WITH DIFFERENTIAL (07/16/2005 12:35 PM RUFFLING HEMMER AUTOMATIC) NEUTROPHILS 89(H) 45 - 70 % INTERFAC [...] K/uL INTERFACE SYSTEM 07/16/2005 12:3 5 PM RUFFLING HEMMER AUTOMATIC Historical Provider HEMATOLOGY ORDERABLES Final Result Performing Organization Address [facility] Phone Number INTERFACE SYSTEM Refer to clinic/hospital department * (ABNORMAL) CBC WITH DIFFERENTIAL (07/16/2005 12:35 PM RUFFLING HEMMER AUTOMATIC) WBC 7.8 4.0 - 9.8 K/uL INTERFACE [...] fL INTERFACE SYSTEM 07/16/2005 12:3 5 PM RUFFLING HEMMER AUTOMATIC us Historical Provider HEMATOLOGY ORDERABLES Final Result INTERFACE SYSTEM Refer to clinic/hospital department documented in this encounter Visit Diagnoses Diagnosis Urinary tract infection, site not specified- Primary documented in this encounter Additional Health Concerns Infection Onset Date Last Indicated Resolved Time R/O C. diff 05/21/2020 05/21/2020 05/21/2020 1:01 PM RUFFLING HEMMER AUTOMATIC R/O C. diff 10/31/2021 10/30/2021 10/31/2021 3:51 PM CDT R/O C. diff 09/01/2022 08/31/2022 09/01/2022 5:17 PM CDT documented as of this encounter Care Teams Embedded Software Test Engineer Relationship Specialty Start Date End Date Porsha Garrido MD [address] [place] [phone] PCP - General 03/04/09 documented as of this encounter
--- OUTSIDE RECORDS SUMMARY | 2024-09-19 01:05 | XMS_ITS | Clinical Summary ---
Author Organization [facility] Address [address] [facility] [place] [address] Care Team Providers Care Pipelines Supervisor Name Role Phone Unavailable Primary Care Provider [...] reflux disease without esophag itis 11/23/2004 Routine infant or child health check 07/31/2004 Seasonal allergies [...] Description 10/24/2024 9:15 AM CDT Office Visit [facility] [address] [place] [address] Anahi Leigh, DDS [address] [place] [address] Health Maintenance Due Date Last Done Comments [...] PANORAMIC RADIOGRAPHIC IMAGE Routine 06/25/2019 2:00 AM ADVERTISING SALES AGENT INTRAORAL - COMPREHENSIVE SERIES OF RADIOGRAPHIC IMAGES Routine 06/25/2019 2:00 AM ADVERTISING SALES AGENT from Last 3 Months or Most Recently Relevant to Health Maintenance Insurance DENTAL ANDI O
--- OUTSIDE RECORDS SUMMARY | 2024-09-19 01:05 | XMS_ITS | Encounter Summary ---
Author Organization [facility] Address [address] [place] [address] Care Team Providers Care Load Mixer Name Role Phone Porsha Garrido MD Primary Care Provider [phone] Encounter Details Date Type Department Care Team (Late st Contact Info) Description 07/16/2002 Outpatient Historical [facility] Pediatrics [place] [address] [facility] [place] [address] Deshawn Kitchen MD NO ADDRESS ON FILE Social History Tobacco Use Types Packs/Day Years Used Date Smoking Tobacco: Never Assessed Comments Unknown Sex and Gender Information Value Date Recorded Sex Assigned at Not on file Legal Sex Female 3:08 AM CORE PILER Gender Identity Not on file Sexual Orientation Not on file documented as of this encounter Plan of Treatment Upcoming Encounters Date Type Department Care Team (Late st Contact Info) Description 06/25/2025 3:10 PM CORE PILER Office Visit [facility] Gastroenterology [place] [address] [place] [address] Gary Burgess MD [address] [id number] [place] [address] 08/08/2025 10:30 AM CDT Office Visit [facility] Neurology [address] [place] [address] Rama De La Paz MD [address] [facility] [address] [place] [address] documented as of this encounter Visit Diagnoses Not on filedocumented in this encounter Additional Health Concerns Infection Onset Date Last Indicated Resolved Time R/O C. diff 05/21/2020 05/21/2020 05/21/2020 1:01 PM CORE PILER R/O C. diff 10/31/2021 10/30/2021 10/31/2021 3:51 PM CDT R/O C. diff 09/01/2022 08/31/2022 09/01/2022 5:17 PM CDT documented as of this encounter Care Teams Load Mixer Relationship Specialty Start Date End Date Porsha Garrido MD [address] [place] [id number] PCP - General 03/04/09 documented as of this encounter
--- OUTSIDE RECORDS SUMMARY | 2024-09-19 01:05 | XMS_ITS | Encounter Summary ---
Author Organization [facility] Address [address] [place] [address] Care Team Providers Care Unit Control Clerk Name Role Phone Porsha Garrido MD Primary Care Provider Encounter Details Date Type Department Care Team (Late st Contact Info) Description 03/29/2008 Outpatient Historical [facility] [place] [address] [place] [address] Blood in Stool Social History Tobacco Use Types Packs/Day Years Used Date Smoking Tobacco: Never Assessed Comments Unknown Sex and Gender Information Value Date Recorded Sex Assigned at Not on file Legal Sex Female 3:08 AM STOGIE PACKER Gender Identity Not on file Sexual Orientation Not on file documented as of this encounter Plan of Treatment Upcoming Encounters Date Type Department Care Team (Late st Contact Info) Description 06/25/2025 3:10 PM STOGIE PACKER Office Visit [facility] Gastroenterology [place] [address] [place] [address] Gary Burgess MD [address] [id number] [place] [address] 08/08/2025 10:30 AM CDT Office Visit [facility] Neurology [address] [place] [address] Rama De La Paz MD [address] [facility] [address] [place] [address] documented as of this encounter Procedures Procedure Name Priority Date/Time Associated Diagnosis Comments PATHOLOGY Routine 03/29/2008 11:10 AM STOGIE PACKER POC , URINE Routine 03/29/2008 10:00 AM STOGIE PACKER documented in this encounter Results * PATHOLOGY (03/29/2008 11:10 AM STOGIE PACKER) FINAL REPORT [facility] [address] [place], [place] [address] Patient: ALLY ARREAGA : 1985 Procedure Date: 03/29/2008 Accession Date: 03/29/2008 Case No: [id number] Ordering Dr: ANAI GANT Case types AW, BW, FW, NW and SH are performed by [facility], [place], [place] SURGICAL PATHOLOGY & NON-GYNECOLOGIC CYTOPATHOLOGY REPORT [...] 03:01 pm Microscopic: The slides are labeled [id number], Ally Arreaga. The rectal mucosa contains scattered [...] am INTERFACE SYSTEM 03/29/2008 11:1 0 AM STOGIE PACKER us Anai Gant MD PATHOLOGY/CYTOLOGY ORDERABLES F inal Result INTERFACE SYSTEM Refer to clinic/hospital department * POC , URINE (03/29/2008 10:00 AM STOGIE PACKER) , URINE POC Negative Negative [facility] Urine specimen (specimen) 03/29/2008 10:00 AM STOGIE PACKER 03/29/2008 10:00 AM STOGIE PACKER us Anai Gant MD POINT OF CARE TESTING Final Res ult INTERFACE SYSTEM Refer to clinic/hospital department [facility] CLIA# [id number] [address] [facility] [address] documented in this encounter Visit Diagnoses Diagnosis Blood in stool documented in this encounter Additional Health Concerns Infection Onset Date Last Indicated Resolved Time R/O C. diff 05/21/2020 05/21/2020 05/21/2020 1:01 PM STOGIE PACKER R/O C. diff 10/31/2021 10/30/2021 10/31/2021 3:51 PM CDT R/O C. diff 09/01/2022 08/31/2022 09/01/2022 5:17 PM CDT documented as of this encounter Care Teams Unit Control Clerk Relationship Specialty Start Date End Date Porsha Garrido MD [address] [place] [address] PCP - General 03/04/09 documented as of this encounter
--- OUTSIDE RECORDS SUMMARY | 2024-09-19 01:05 | XMS_ITS | Encounter Summary ---
Author Organization [facility] Address [address] [place] [address] Care Team Providers Care Crop Pest Control Specialist Name Role Phone Porsha Garrido MD Primary Care Provider Encounter Details Date Type Department Care Team (Late st Contact Info) Description 06/29/2005 Outpatient Historical [facility] [place] [address] [facility] [address] [place] [address] Deshawn Kitchen MD NO ADDRESS ON FILE Social History Tobacco Use Types Packs/Day Years Used Date Smoking Tobacco: Never Assessed Comments Unknown Sex and Gender Information Value Date Recorded Sex Assigned at Not on file Legal Sex Female 3:08 AM BRUSHER AND SHEARER Gender Identity Not on file Sexual Orientation Not on file documented as of this encounter Plan of Treatment Upcoming Encounters Date Type Department Care Team (Late st Contact Info) Description 06/25/2025 3:10 PM BRUSHER AND SHEARER Office Visit [facility] Gastroenterology [address] [place] [address] Gary Burgess MD [address] [id number] [place] [address] 08/08/2025 10:30 AM CDT Office Visit [facility] Neurology [address] [place] [address] Rama De La Paz MD [address] [facility] [address] [place] [address] documented as of this encounter Visit Diagnoses Not on filedocumented in this encounter Additional Health Concerns Infection Onset Date Last Indicated Resolved Time R/O C. diff 05/21/2020 05/21/2020 05/21/2020 1:01 PM BRUSHER AND SHEARER R/O C. diff 10/31/2021 10/30/2021 10/31/2021 3:51 PM CDT R/O C. diff 09/01/2022 08/31/2022 09/01/2022 5:17 PM CDT documented as of this encounter Care Teams Crop Pest Control Specialist Relationship Specialty Start Date End Date Porsha Garrido MD [address] [place] [address] PCP - General 03/04/09 documented as of this encounter
--- OUTSIDE RECORDS SUMMARY | 2024-09-19 01:05 | XMS_ITS | Encounter Summary ---
Author Organization [facility] Address [address] [place] [address] Care Team Providers Care Wood Room Supervisor Name Role Phone Porsha Garrido MD Primary Care Provider Encounter Details Date Type Department Care Team (Late st Contact Info) Description 12/12/2003 Outpatient Historical [facility] Pediatric[facility] [place] [address] [facility] [place] [address] Deshawn Kitchen MD NO ADDRESS ON FILE Social History Tobacco Use Types Packs/Day Years Used Date Smoking Tobacco: Never Assessed Comments Unknown Sex and Gender Information Value Date Recorded Sex Assigned at Not on file Legal Sex Female 3:08 AM CLINICAL NURSE REVIEWER Gender Identity Not on file Sexual Orientation [...] st Contact Info) Description 06/25/2025 3:10 PM CLINICAL NURSE REVIEWER Office Visit [facility] Gastroenterology [address] [place] [address] Gary Burgess MD [address] [id number] [place] [address] 08/08/2025 10:30 AM CDT Office Visit [facility] Neurology [facility] [address] [place] [address] Rmaa D eLa Paz MD [address] [place] [address] documented as of this encounter Visit Diagnoses Not on filedocumented in this encounter Additional Health Concerns Infection Onset Date Last Indicated Resolved Time R/O C. diff 05/21/2020 05/21/2020 05/21/2020 1:01 PM CLINICAL NURSE REVIEWER R/O C. diff 10/31/2021 10/30/2021 10/31/2021 3:51 PM CDT R/O C. diff 09/01/2022 08/31/2022 09/01/2022 5:17 PM CDT documented as of this encounter Care Teams Wood Room Supervisor Relationship Specialty Start Date End Date Porsha Garrido MD [address] [place] [address] [address] [place] [address] PCP - General 03/04/09 documented as of this encounter
--- OUTSIDE RECORDS SUMMARY | 2024-09-19 01:05 | XMS_ITS | Clinical Summary ---
Author Organization [facility] Address [address] [place] [address] Phone Care Team Providers Care Master Ocean Yacht Name Role Phone Porsha Garrido MD Primary Care Provider Allergies Active Allergy Reactions Criticality Noted Date Comments Azithromycin Unknown Doxycycline Hcl Rash Low 02/11/2015 Sulfa (Sulfonamide Antibiotics) Other (See Comments),Rash Medium 02/04/2009 Unknown ask Medications valACYclovir 500 mg tablet Take 500 mg by mouth daily. Active cetirizine HCl (ZYRTEC ORAL) Take by mouth. A ctive fluticasone propionate (FLONASE) 50 mcg/spray Aurora, Suspension nasal inhaler Administer 2 Sprays in [...] Encounters Date Type Department Care Team Description 5 Results Follow-Up [facility] Gastroenterology [place] [address] [place] [address] Gary Burgess MD PATHOLOGY 5 10:30 AM CDT - 5 11:00 AM CDT Surgery [facility] [address] [place] [address] Gary Burgess MD ESOPHAGOGASTRODUODENOSCOPY 5 10:13 AM CDT Anesthesia Event [facility] [address] [place] [address] Noemi Holman MD 5 9:27 AM CDT - 5 11:01 AM CDT Hospital Encounter [facility] [address] [place] [address] Gary Burgess MD Abdominal pain Discharge Disposition: Home or Self Care 5 Travel 5 Telephone [facility] Gastroenterology [address] [facility] [address] [place] [address] Urszula Oswald RN 10-days Late for Entyvio Infusion 5 Abstract [facility] Gastroenterology [facility] [address] [place] [address] Katie Richardson 5 11:00 AM CDT Office Visit [facility] Neurology [address] [facility] [address] [place] [address] Rama De La Paz MD Intractable migraine with aura without status migrainosus (Primary Dx) 5 External Device Data STL ABSTRACTION Provider, Abstract 5 External Device Data STL ABSTRACTION Provider, Abstract 5 External Device Data STL ABSTRACTION Provider, Abstract 5 External Device Data STL ABSTRACTION Provider, Abstract 5 External Device Data STL ABSTRACTION Provider, Abstract 5 2:40 PM SHOTBLASTER Office Visit [facility] Gastroenterology [address] [facility] [address] [place] [address] Gary Burgess MD Ulcerative rectosigmoiditis without complication [...] on file Legal Sex Female 3:08 AM SHOTBLASTER Gender Identity Not on file Sexual Orientation Not on file Last Filed Vital Signs Vital Sign Reading Time Taken Comments Blood Pressure 98/61 09/12/2024 10:51 AM CDT Pulse 60 09/12/2024 10:51 AM CDT Temperature 36.9 C (98.5 F) 09/12/2024 10:28 AM CDT Respiratory Rate 20 09/12/2024 10:51 AM CDT Oxygen Saturation 99% 09/12/2024 10:51 AM CDT Inhaled Oxygen Concentration - - Weight 84.4 kg (186 lb) 09/12/2024 9:51 AM CDT Height 172.7 cm (5' 8 ) 09/12/2024 9:51 AM CDT Body Mass Index 28.28 09/12/2024 9:51 AM CDT Plan of Treatment Upcoming Encounters Date Type Department Care Team (Late st Contact Info) Description 06/25/2025 3:10 PM SHOTBLASTER Office Visit [facility] Gastroenterology [address] [facility] [address] [place] [address] Gary Burgess MD [address] [facility] [id number] [place] [address] 08/08/2025 10:30 AM CDT Office Visit [facility] Neurology [address] [facility] [address] [place] [address] Rama De La Paz MD [address] [facility] [address] [place] [address] Health Maintenance Due Date Last [...] Procedure Name Priority Date/Time Associated Diagnosis Comments HI ESOPHAGOGASTRODUODENOSCOP Y TRANSORAL DIAGNOSTIC 09/12/2024 10:30 AM CDT Abdominal pain UPPER ENDOSCOPY REPORT 10:26 AM CDT PATHOLOGY Pathology 09/12/2024 10:24 AM CDT Abdominal pain POC , URINE Routine 09/12/2024 9:44 AM CDT from Last 3 Months Results * UPPER ENDOSCOPY REPORT (09/12/2024 10:26 AM CDT) Narrative Procedure Note Gary Burgess MD - 09/12/2024 10:26 AM CDT [facility] Endoscopy Patient Name: Ally Arreaga Procedure Date: 09/12/2024 Date of : 1985 Age: 39 Attending MD: Gary Burgess MD, Procedure: Upper GI endoscopy Indications: Epigastric abdominal pain Providers: Gary Burgess MD Referring MD: Porsha Garrido MD Medicines: General Anesthesia Procedure: Informed consent was obtained for the procedure, including moderate sedation after risks were discussed. Based on the pre-procedure assessment, including review of the patient's medical history, medications, allergies, and review of systems, the patient was deemed to be an appropriate candidate for sedation. A timeout was performed. Continuous ECG monitoring, pulse oximetry, blood pressure monitoring, and direct observation were performed. The Endoscope was introduced through the mouth, and advanced to the second part of duodenum. The upper GI endoscopy was accomplished without difficulty. The patient tolerated the procedure well. Estimated Blood Loss: Estimated blood loss was minimal. Findings: The esophagus was normal. Multiple medium sessile polyps with no stigmata of recent bleeding were found in the gastric body. Biopsies were taken with a cold forceps for histology. The gastric antrum was normal. Biopsies were taken with a cold forceps for histology. The examined duodenum was normal. Complications: No immediate complications. Estimated blood loss: Minimal. Impression: - Normal esophagus. - Multiple gastric polyps. Biopsied. - Normal antrum. Biopsied. - Normal examined duodenum. Recommendation: - Await pathology results. Gary Burgess MD 09/12/2024 10:26:08 AM This report has been signed electronically. Number of Addenda: 0 Procedure Date: 09/12/2024 10:04:20 AM [address] [address] [place] Gary Burgess MD GI PROCEDURE ORDERABLES Final R esult * PATHOLOGY (09/12/2024 10:24 AM CDT) CASE REPORT Surgical Pathology R eport Case: [id number] Authorizing Provider: Gary Burgess MD Collected: 09/12/2024 10:24 AM Ordering Location: [facility] Received: 09/12/2024 02:27 PM [facility] Pathologist: Daniel Pedroza MD Specimens: A) - Stomach, gastric bx's B) - Stomach, gastric polyps 3:38 PM CDT [facility] FINAL DIAGNOSIS A. Gastric, biopsy: - Mild chronic gastritis B. Gastric, polyps, biopsy: - Fundic gland polyps, two fragments 3:38 PM CDT [facility] at 1538 CDT GROSS DESCRIPTION The specimens are received in two containers labeled Ally Arreaga. Received in the first container, additionally labeled gastric biopsies are 3 pieces of ayala tissue that are 0.2 to 0.4 cm in greatest dimension. The entire specimen is submitted in cassette A1. Received in the second container additionally labeled gastric polyps are 2 pieces of ayala tissue that are 0.4 cm in greatest dimension. The entire specimen is submitted in cassette B1. LLH 3:38 PM CDT [facility] MICROSCOPIC DESCRIPTION The slides are labeled [id number] and Gibson, Ally. A. Sections show gastric mucosa with occasional plasma cells in the lamina propria. There is no significant active inflammation. No Helicobacter organisms are identified on H&E stained slide. Negative for intestinal metaplasia and dysplasia. B. Sections show 2 fragments of oxyntic mucosa with dilated glands, consistent with fundic gland polyps. Negative for intestinal metaplasia and dysplasia. 5 3:38 PM T [facility] OPERATIVE PROCEDURE 1: ESOPHAGOGASTRODUODENOSCOP Y 5 3:38 PM T [facility] CLINICAL INFORMATION A Gastritis, r/o h.pylori Gastritis, r/o h.pylori Abdominal pain [R10.9] R10.9-Abdominal pain 5 3:38 PM [facility] COMMENT Special stain, immunohistochemical, and/or in situ hybridization results are interpreted with controls that demonstrate appropriate staining reactions. Note on use of immunohistochemistry reagents and in situ hybridization probes: These tests were developed and their performance characteristics determined by [facility], Department of Laboratory Medicine. It has not been cleared or approved by the U.S. Food and Drug Administration. The FDA has determined that such clearance or approval is not necessary. The test is used for clinical purposes. It should not be regarded as investigational or for research. This laboratory is certified to perform high complexity testing. Frozen section/operating room consultation, gross examination and dissection, and case sign out may have been performed in part or completely in the following laboratories: [facility], CLIA #[id number] [address] [place] [address] [facility], [place] #[id number] [address] [place] [address] [facility], [place] #[id number] [address] [place] [address] This report was created with the Bread voice-activated dictation system. Inherent to this system is the possibility of syntax, grammar, punctuation and other errors that could impact the interpretation of the report. If there are interpretative questions about aspects of this report, please contact the performing pathologist. 5 3:38 PM [facility] Tissue ENTIRE STOMACH / Unknown Collection / Unknown 09/12/2024 10:24 AM CDT 09/12/2024 2:27 PM CDT Comment:Gastritis, r/o h.pyl sg Tissue specimen (specimen) ENTIRE STOMACH / Unknown 09/12/2024 10:24 AM CDT 09/12/2024 2:27 PM CDT Gary Burgess MD PATHOLOGY/CYTOLOGY ORDERABLES F inal Result Performing Organization Address [facility]/ZIP Co de Phone Number [facility] CLIA# [id number] [address] [place] [address] * POC , URINE (09/12/2024 9:44 AM CDT) HCG QUAL URINE Negative Negative 09/12/2024 9:44 AM CDT [facility] Urine 09/12/2024 9:44 AM CDT 09/12/2024 9:51 AM CDT Narrative [facility] ENDOSCOPY [facility] - 09/12/2024 9:44 AM CDT Positive : Result is greater than or equal to 25 mIU/mL Negative: Result is less than 25 mIU/mL Invalid: Result is borderline or indeterminate,send to lab for serum test methodology. Gary Burgess MD POINT OF CARE TESTING Final Res ult Performing Organization Address [facility] Co de Phone Number [facility] CLIA # [id number] [place] [address] from Last 3 Months Insurance [facility] OPEN ACCESS HMO [facility] CHOICE [facility] OA PLUS Advance Directives For more information, please contact: [phone] * Full Code (Latest Code Status on File) Date Activated Date Inactivated Comments 09/12/2024 9:55 AM 09/12/2024 1:02 PM * Full Code Date Activated Date Inactivated Comments 08/12/2023 12:00 PM 08/12/2023 3:31 PM * Full Code Date Activated Date Inactivated Comments 02/24/2021 11:31 AM 02/24/2021 2:52 PM * Full Code Date Activated Date Inactivated Comments 06/06/2020 7:55 AM 06/06/2020 11:28 AM * Full Code Date Activated Date Inactivated Comments 01/01/2020 8:02 AM 01/01/2020 11:45 AM Care Teams Master Ocean Yacht Relationship Specialty Start Date End Date Porsha Garrido MD [address] [place] [address] PCP - General 03/04/09
--- OUTSIDE RECORDS SUMMARY | 2024-09-19 01:05 | XMS_ITS | Encounter Summary ---
Author Organization [facility] Address [address] [place] [address] Care Team Providers Care House Wirer Name Role Phone Porsha Garrido MD Primary Care Provider Encounter Details Date Type Department Care Team (Late st Contact Info) Description 08/01/2002 Outpatient Historical [facility] [place] [address] [facility] [place] [address] [place] [address] Deshawn Kitchen MD NO ADDRESS ON FILE Social History Tobacco Use Types Packs/Day Years Used Date Smoking Tobacco: Never Assessed Comments Unknown Sex and Gender Information Value Date Recorded Sex Assigned at Not on file Legal Sex Female 3:08 AM HOUSING CASE MANAGER Gender Identity Not on file Sexual Orientation Not on file documented as of this encounter Plan of Treatment Upcoming Encounters Date Type Department Care Team (Late st Contact Info) Description 06/25/2025 3:10 PM HOUSING CASE MANAGER Office Visit [facility] Gastroenterology [address] [place] [address] Gary Burgess MD [id number] [place] [address] 08/08/2025 10:30 AM CDT Office Visit [facility] Neurology [address] [place] [address] Rama De La Paz MD [address] [facility] [address] [place] [address] documented as of this encounter Visit Diagnoses Not on filedocumented in this encounter Additional Health Concerns Infection Onset Date Last Indicated Resolved Time R/O C. diff 05/21/2020 05/21/2020 05/21/2020 1:01 PM HOUSING CASE MANAGER R/O C. diff 10/31/2021 10/30/2021 10/31/2021 3:51 PM CDT R/O C. diff 09/01/2022 08/31/2022 09/01/2022 5:17 PM CDT documented as of this encounter Care Teams House Wirer Relationship Specialty Start Date End Date Porsha Garrido MD [address] [place] [id number] PCP - General 03/04/09 documented as of this encounter
--- OUTSIDE RECORDS SUMMARY | 2024-09-19 01:05 | XMS_ITS | Encounter Summary ---
Author Organization [facility] Address [address] [place] [address] Care Team Providers Care Channeling Machine Runner Name Role Phone Porsha Garrido MD Primary Care Provider [phone] Encounter Details Date Type Department Care Team (Late st Contact Info) Description 12/10/2003 Outpatient Historical [facility] [place] [address] [facility] [place] [address] Eduardo Mason MD NO ADDRESS ON FILE Social History Tobacco Use Types Packs/Day Years Used Date Smoking Tobacco: Never Assessed Comments Unknown Sex and Gender Information Value Date Recorded Sex Assigned at Not on file Legal Sex Female 3:08 AM BANK NOTE DESIGNER Gender Identity Not on file Sexual Orientation Not on file documented as of this encounter Plan of Treatment Upcoming Encounters Date Type Department Care Team (Late st Contact Info) Description 06/25/2025 3:10 PM BANK NOTE DESIGNER Office Visit [facility] Gastroenterology [place] [address] [place] [address] Gary Burgess MD [id number] [place] [address] 08/08/2025 10:30 AM CDT Office Visit [facility] Neurology [address] [place] [address] Rama De La Paz MD [address] [facility] [address] [place] [address] documented as of this encounter Visit Diagnoses Not on filedocumented in this encounter Additional Health Concerns Infection Onset Date Last Indicated Resolved Time R/O C. diff 05/21/2020 05/21/2020 05/21/2020 1:01 PM BANK NOTE DESIGNER R/O C. diff 10/31/2021 10/30/2021 10/31/2021 3:51 PM CDT R/O C. diff 09/01/2022 08/31/2022 09/01/2022 5:17 PM CDT documented as of this encounter Care Teams Channeling Machine Runner Relationship Specialty Start Date End Date Porsha Garrido MD [address] [place] [address] [address] [place] [address] PCP - General 03/04/09 documented as of this encounter
--- OUTSIDE RECORDS SUMMARY | 2024-09-19 01:05 | XMS_ITS | Encounter Summary ---
Author Organization [facility] Address [address] [place] [address] Care Team Providers Care Microfabrication Engineer Manager Name Role Phone Porsha Garrido MD Primary Care Provider Encounter Details Date Type Department Care Team (Late st Contact Info) Description 04/01/2005 Outpatient Historical [facility] [place] [address] [place] [address] ABDOMINAL PAIN UNSPEC SITE (Primary Dx) Social History Tobacco Use Types Packs/Day Years Used Date Smoking Tobacco: Never Assessed Comments Unknown Sex and Gender Information Value Date Recorded Sex Assigned at Not on file Legal Sex Female 3:08 AM CHEESE COOKER Gender Identity Not on file Sexual Orientation Not on file documented as of this encounter Plan of Treatment Upcoming Encounters Date Type Department Care Team (Late st Contact Info) Description 06/25/2025 3:10 PM CHEESE COOKER Office Visit [facility] Gastroenterology [place] [address] [place] [address] Gary Burgess MD [id number] [place] [address] 08/08/2025 10:30 AM CDT Office Visit [facility] Neurology [address] [place] [address] Rama De La Paz MD [address] [facility] [address] [place] [address] documented as of this encounter Visit Diagnoses Diagnosis Abdominal pain, unspecified site- Primary documented in this encounter Additional Health Concerns Infection Onset Date Last Indicated Resolved Time R/O C. diff 05/21/2020 05/21/2020 05/21/2020 1:01 PM CHEESE COOKER R/O C. diff 10/31/2021 10/30/2021 10/31/2021 3:51 PM CDT R/O C. diff 09/01/2022 08/31/2022 09/01/2022 5:17 PM CDT documented as of this encounter Care Teams Microfabrication Engineer Manager Relationship Specialty Start Date End Date Porsha Garrido MD [address] [place] [id number] PCP - General 03/04/09 documented as of this encounter
--- OUTSIDE RECORDS SUMMARY | 2024-09-19 01:05 | XMS_ITS | Encounter Summary ---
Author Organization [facility] Address [address] [place] [address] Care Team Providers Care Adjunct Instructor In Economics Name Role Phone Porsha Garrido MD Primary Care Provider [phone] Encounter Details Date Type Department Care Team (Late st Contact Info) Description 07/31/2004 Outpatient Historical [facility] [address] [facility] [address] [place] [address] Deshawn Kitchen MD NO ADDRESS ON FILE Social History Tobacco Use Types Packs/Day Years Used Date Smoking Tobacco: Never Assessed Comments Unknown Sex and Gender Information Value Date Recorded Sex Assigned at Not on file Legal Sex Female 3:08 AM FOOT GATHERER Gender Identity Not on file Sexual Orientation Not on file documented as of this encounter Last Filed Vital Signs Vital Sign Reading Time Taken Comments Blood Pressure - - Pulse - - Temperature - - Respiratory Rate - - Oxygen Saturation - - Inhaled Oxygen Concentration - - Weight 48.3 kg (106 lb 6 oz) 07/31/2004 9:12 AM FOOT GATHERER Height 168.3 cm (5' 6.25 ) 07/31/2004 9:12 AM CS T Body Mass Index 17.04 07/31/2004 9:12 AM FOOT GATHERER Body Mass Index Percentile 3.83% 07/31/2004 9:1 2 AM FOOT GATHERER Growth Chart: CDC (Girls, 2- 20 Years) documented in this encounter Plan of Treatment Upcoming Encounters Date Type Department Care Team (Late st Contact Info) Description 06/25/2025 3:10 PM FOOT GATHERER Office Visit [facility] Gastroenterology [place] [address] [place] [address] Gary Burgess MD [id number] [place] [address] 08/08/2025 10:30 AM CDT Office Visit [facility] Neurology [facility] [address] [place] [address] Rama De La Paz MD [address] [place] [address] documented as of this encounter Visit Diagnoses Not on filedocumented in this encounter Additional Health Concerns Infection Onset Date Last Indicated Resolved Time R/O C. diff 05/21/2020 05/21/2020 05/21/2020 1:01 PM FOOT GATHERER R/O C. diff 10/31/2021 10/30/2021 10/31/2021 3:51 PM CDT R/O C. diff 09/01/2022 08/31/2022 09/01/2022 5:17 PM CDT documented as of this encounter Care Teams Adjunct Instructor In Economics Relationship Specialty Start Date End Date Porsha Garrido MD [address] [place] [address] [address] [place] [address] PCP - General 03/04/09 documented as of this encounter
--- OUTSIDE RECORDS SUMMARY | 2024-09-19 01:05 | XMS_ITS | Encounter Summary ---
Author Organization [facility] Address [address] [place] [address] Care Team Providers Care Hand Cigar Making Supervisor Name Role Phone Porsha Garrido MD Primary Care Provider Encounter Details Date Type Department Care Team (Latest Contact Info) Description 07/23/2008 Outpatient Historical [facility] Gilbert Cummings MD NO ADDRESS ON FILE Lumbago; Unspecified Asthma; Esophageal Reflux Social History Tobacco Use Types Packs/Day Years Used Date Smoking Tobacco: Never Assessed Comments Unknown Sex and Gender Information Value Date Recorded Sex Assigned at Not on file Legal Sex Female 3:08 AM ACCOUNT EXECUTIVE AGRIBUSINESS Gender Identity Not on file Sexual Orientation Not on file documented as of this encounter Plan of Treatment Upcoming Encounters Date Type Department Care Team (Late st Contact Info) Description 06/25/2025 3:10 PM ACCOUNT EXECUTIVE AGRIBUSINESS Office Visit [facility] Gastroenterology [place] [address] [place] [address] Gary Burgess MD [id number] [place] [address] 08/08/2025 10:30 AM CDT Office Visit [facility] Neurology [address] [place] [address] Rama De La Paz MD [address] [facility] [address] [place] [address] documented as of this encounter Visit Diagnoses Diagnosis Lumbago Unspecified asthma(493.90) Unspecified asthma Esophageal reflux documented in this encounter Additional Health Concerns Infection Onset Date Last Indicated Resolved Time R/O C. diff 05/21/2020 05/21/2020 05/21/2020 1:01 PM ACCOUNT EXECUTIVE AGRIBUSINESS R/O C. diff 10/31/2021 10/30/2021 10/31/2021 3:51 PM CDT R/O C. diff 09/01/2022 08/31/2022 09/01/2022 5:17 PM CDT documented as of this encounter Care Teams Hand Cigar Making Supervisor Relationship Specialty Start Date End Date Porsha Garrido MD [address] [place] [address] PCP - General 03/04/09 documented as of this encounter
--- OUTSIDE RECORDS SUMMARY | 2024-09-19 01:05 | XMS_ITS | Encounter Summary ---
Author Organization [facility] Address [address] [place] [address] Care Team Providers Care R D Internship Name Role Phone Porsha Garrido MD Primary Care Provider Encounter Details Date Type Department Care Team (Late st Contact Info) Description 06/29/2005 Orders Only [facility] Pediatrics [place] [address] [facility] [place] [address] [place] [address] Vandana Hernandez NP NO ADDRESS ON FILE Social History Tobacco Use Types Packs/Day Years Used Date Smoking Tobacco: Never Assessed Comments Unknown Sex and Gender Information Value Date Recorded Sex Assigned at Not on file Legal Sex Female 3:08 AM LIEUTENANT COLONEL Gender Identity Not on file Sexual Orientation [...] the patient (alone). ALLERGIES: CURRENT ALLERGY LIST: [facility] MEDICATIONS: RN/MA reviewed medications.naeem, adv, nexium [...] was negative. ASSESSMENT/PLAN: 789.07-ABDOMINAL PAIN GENERALIZED ? WEATHER STRIP MECHANIC in nature Abdominal and pelvic US scheduled for 06/30 at [facility]. Call sooner if any increased sxs develop Electronically Signed by: YUSUF Ferrari on Wednesday, June 29, 2005 Electronically Signed by: Deshawn Kitchen MD on Thursday, June 30, 2005 documented in this encounter Plan of Treatment Upcoming Encounters Date Type Department Care Team (Late st Contact Info) Description 06/25/2025 3:10 PM LIEUTENANT COLONEL Office Visit [facility] Gastroenterology [facility] [address] [place] [address] [place] [address] Gary Burgess MD [id number] [place] [address] 08/08/2025 10:30 AM CDT Office Visit [facility] [address] [facility] [address] [place] [address] Rama De La Paz MD [address] [facility] [address] [place] [address] documented as of this encounter Visit Diagnoses Not on filedocumented in this encounter Additional Health Concerns Infection Onset Date Last Indicated Resolved Time R/O C. diff 05/21/2020 05/21/2020 05/21/2020 1:01 PM LIEUTENANT COLONEL R/O C. diff 10/31/2021 10/30/2021 10/31/2021 3:51 PM CDT R/O C. diff 09/01/2022 08/31/2022 09/01/2022 5:17 PM CDT documented as of this encounter Care Teams R D Internship Relationship Specialty Start Date End Date Porsha Garrido MD [address] [place] [id number] PCP - General 03/04/09 documented as of this encounter
--- OUTSIDE RECORDS SUMMARY | 2024-09-19 01:05 | XMS_ITS | Encounter Summary ---
Author Organization [facility] Address [address] [place] [address] Care Team Providers Care Cottage Master Name Role Phone Porsha Garrido MD Primary Care Provider Encounter Details Date Type Department Care Team (Late st Contact Info) Description 11/23/2004 Outpatient Historical [facility] Pediatrics [place] [address] [facility] [place] [address] [place] [address] Deshawn Kitchen MD NO ADDRESS ON FILE Social History Tobacco Use Types Packs/Day Years Used Date Smoking Tobacco: Never Assessed Comments Unknown Sex and Gender Information Value Date Recorded Sex Assigned at Not on file Legal Sex Female 3:08 AM FIBER PRODUCT CUTTING MACHINE OPERATOR Gender Identity Not on file Sexual Orientation Not on file documented as of this encounter Plan of Treatment Upcoming Encounters Date Type Department Care Team (Late st Contact Info) Description 06/25/2025 3:10 PM FIBER PRODUCT CUTTING MACHINE OPERATOR Office Visit [facility] Gastroenterology [place] [address] [place] [address] Gary Burgess MD [id number] [place] [address] 08/08/2025 10:30 AM CDT Office Visit [facility] Neurology [address] [place] [address] Rama De La Paz MD [address] [facility] [address] [place] [address] documented as of this encounter Visit Diagnoses Not on filedocumented in this encounter Additional Health Concerns Infection Onset Date Last Indicated Resolved Time R/O C. diff 05/21/2020 05/21/2020 05/21/2020 1:01 PM FIBER PRODUCT CUTTING MACHINE OPERATOR R/O C. diff 10/31/2021 10/30/2021 10/31/2021 3:51 PM CDT R/O C. diff 09/01/2022 08/31/2022 09/01/2022 5:17 PM CDT documented as of this encounter Care Teams Cottage Master Relationship Specialty Start Date End Date Porsha Garrido MD [address] [place] [id number] PCP - General 03/04/09 documented as of this encounter
--- NOTE | 2024-09-19 07:07 | WPDHPUPDATE1 ---
History and Physical Update Update Date/Time: 09/19/24 07:07 History and Physical has been reviewed, including an updated exam of the patient. There are NO changes in the patient's condition. Risks, benefits, and alternatives have been discussed and questions answered. Patient agrees to proceed with procedure.
[2024-09-19] MEDS: LACTATED RINGERS 1,000 ML 30 ML IV CONT (07:50)
[2024-09-19] MEDS: KETOROLAC 15 MG/ML VIAL (*BKC) IV PUSH (08:00)
[2024-09-19] MEDS: ACETAMINOPHEN 500 MG TABLET 1000 MG PO (08:00)
--- NOTE | 2024-09-19 08:14 | WPDANESEPPF ---
Anes - Initial Pre Proc Eval Procedure: Operation Date: 09/19/24 09:00 Proposed Procedures p Laparoscopic Cholecystectomy - Kal Valdivia MD Date/Time: 09/19/24 08:14 Surgeon: Kal Valdivia MD Pre Op Diagnosis: chronic Cholecystitis Patient Data Age: 39 Gender: F Height: 1.73 m Weight: 84.5 kg Allergies Allergy/AdvReac Type Severity Reaction Status Date / Time doxycycline Allergy Intermediate Rash Verified 09/17/24 12:58 Sulfa (Sulfonamide Allergy Intermediate Rash Verified 09/17/24 12:58 Antibiotics) Home Medications ?Medication ?Instructions ?Recorded ?Confirmed ?Type alprazolam 0.5 mg tablet (Xanax) 0.5 mg PO .prn 08/20/24 09/17/24 History cetirizine 10 mg capsule (Zyrtec) 10 mg PO DAILY PRN allergy symptoms 08/20/24 09/17/24 History escitalopram oxalate 10 mg tablet 10 mg PO DAILY 08/20/24 09/17/24 History (Lexapro) fluticasone propionate 50 1 spray intranasal DAILY 08/20/24 09/17/24 History mcg/actuation nasal spray,suspension pantoprazole 40 mg tablet,delayed 40 mg PO DAILY 08/20/24 09/17/24 History release (Protonix) valacyclovir 500 mg tablet 500 mg PO DAILY PRN prn 08/20/24 09/17/24 History (Valtrex) vedolizumab 300 mg intravenous 300 mg IV ONCE 08/20/24 09/17/24 History solution (Entyvio) budesonide-formoterol HFA 80 1 inh inhalation TID 08/23/24 09/17/24 History mcg-4.5 mcg/actuation aerosol inhaler (Symbicort) Patient hx anesthesia problems: none Family hx anesthesia problems: none Results Review: All pre-operative results and documents have been reviewed as part of the pre-operative evaluation. [facility] Past Medical History Medical History Asthma Normal colonoscopy Irritable bowel Migraine GERD (gastroesophageal reflux disease) Colitis Crohn disease Anxiety Anemia Allergies Surgical History Surgical History History of tonsillectomy Family History Family History Mother Hypertension Father Hypertension Grandparent Heart abnormality Social History Social History Smoking status: Never smoker Alcohol intake: unknown Substance use: never Substance use type: does not use Do You Feel Safe in your Home?: Yes Lack of Transportation: No Lack of Food: Never True Current Housing: I Have Housing Concerned About Future Housing: No Difficulty Paying Gas/Electric Bills: No Difficulty Paying for Meds: No Currently Unemployed: No Education: Bachelor's Degree Difficulty w/ Childcare or Family Care: No Living arrangements: with family Occupation/Education: occupation Anes - Eval Final PreProcedure Day of Procedure 09/19/24 08:14 Patient weight: overweight Heart: regular rate and rhythm Lungs: clear to auscultation Airway: Mallampati scale class II Neurological: alert and oriented Last oral intake: >/= 8 hours ASA classification: III Emergent: no Anesthetic plan: proceed Anesthesia type and monitoring: general ETT and standard monitoring Results Review: All pre-operative results and documents have been reviewed as part of the pre-operative evaluation. Informed Consent: The patient's anesthetic plan and its attendant risks and benefits were discussed with the patient/family/POA. Questions were solicited and answers provided to the satisfaction of the patient/family/POA.
[2024-09-19 08:28] LABS: BEDSIDEPREGUCG Negative (Negative)
[2024-09-19] MEDS: SCOPOLAMINE 1 MG PATCH 1 PATCH TRANSDERM (08:28)
[2024-09-19] MEDS: ceFAZolin 2 GM/D5W 50 ML 2 GM/50 ML BAG IVPB (08:46)
[2024-09-19] MEDS: BUPIVACAINE/EPINEPHRINE 0.5% 50 ML VIAL 30 ML INFILTRATE (09:02)
--- NOTE | 2024-09-19 09:50 | W.PM.PROC2 ---
Procedure Note - Detailed Date of Procedure 09/19/24 Pre-op Diagnosis chronic acalculous Cholecystitis Post-op Diagnosis Same Procedure Performed Laparoscopic cholecystectomy Surgeon Kal Valdivia MD Assistant Grocery Store Manager Jasmin Echavarria GATHERING WORKER Anesthesia General and Local (0.5% Marcaine with epinephrine) Indications Patient has had postprandial epigastric and right upper quadrant pain associated with nausea. She has had EGD, HIDA scan, CT scan of the abdomen and pelvis, and ultrasound, all of which have been negative. Her symptoms are very consistent with chronic cholecystitis. She is taken to surgery now for laparoscopic cholecystectomy. Findings Mild chronic inflammation. No biliary ductal dilatation. No liver abnormalities. Description of Procedure Patient was taken to surgery and induced into general anesthesia. The abdomen is prepped and draped. Trocars were placed in usual fashion using [employer] optical trocars and a 5 mm camera. The gallbladder was decompressed with a laparoscopic aspirator. A Vicryl endoloop was used to close the cholecystotomy. A few adhesions of the omentum to the gallbladder were taken down sharply. The gallbladder was then retracted anterosuperiorly. Dissection in the cholecystohepatic triangle was carried out. The cystic duct and cystic artery were dissected out clearly. The gallbladder was dissected off the liver over its lower 3rd. Critical view was achieved. I then securely clipped and divided the cystic duct and cystic artery. The gallbladder was then further dissected free of its remaining attachments to the liver. There was no bleeding or bile leakage. The gallbladder was placed in an Endo-Catch bag and retrieved through the 10 11 epigastric trocar site with little difficulty. We then replaced the epigastric trocar and reviewed the gallbladder fossa as well as the right upper quadrant. All looked good with no evidence of bleeding or any bile leakage. We then evacuated CO2 and removed the trocar sleeves. Skin wounds were closed with subcuticular 4-0 Monocryl skin suture. The wounds were dressed with Exofin surgical adhesive. Patient was awakened and taken to recovery in good condition. Sponge and needle counts were correct x2. Estimated Blood Loss -5 Drains No Packing No Pathology Yes (Gallbladder) Complications None Condition Stable Disposition PACU [facility] Billing Surgery - Charge Forward: Surgery Billing (Laparoscopic cholecystectomy)
[2024-09-19] MEDS: fentaNYL CITRATE INJ (*CRX) 100 MCG/2 ML VIAL 25 MCG IV PUSH (10:05)
[2024-09-19] MEDS: oxyCODONE HCL (*CRX) 5 MG TAB IR PO (10:43)
== END 2024-09-19 11:10 | disposition home or self-care (01) ==
PROVIDERS: Visit Provider Surgery
PROC: 0FT44ZZ Resection of Gallbladder, Percutaneous Endoscopic Approach (ICD-10-PCS; CPT 47562; principal; 2024-09-19 09:00)
DX: K82.4 Cholesterolosis of gallbladder (principal); K21.9 Gastro-esophageal reflux disease without esophagitis; G89.18 Other acute postprocedural pain; K66.0 Peritoneal adhesions (postprocedural) (postinfection); J45.909 Unspecified asthma, uncomplicated; D64.9 Anemia, unspecified; F41.9 Anxiety disorder, unspecified; K58.9 Irritable bowel syndrome, unspecified; Z79.51 Long term (current) use of inhaled steroids; Z98.890 Other specified postprocedural states; Z87.19 Personal history of other diseases of the digestive system; Z82.49 Family history of ischemic heart disease and other diseases of the circulatory system
CPT/HCPCS: 47562; 88304; A9270; J0690; J1100; J1885; J2250; J2405; J2704; J3010; J7120

== ENCOUNTER 2025-01-06 16:27 | Emergency (ER) | payer OTHER, SELFPAY ==
--- NOTE | ~2025-01-06 | CT_ITS ---
EXAMINATION: CT abdomen pelvis w con DATE: 01/06/2025 17:22 INDICATION: Left upper quadrant pain TECHNIQUE: Computed tomography (CT) of the abdomen and pelvis was performed without intravenous contrast. The dose-length product was 555.39 mGy-cm. Automated exposure control and iterative reconstruction technique were employed. COMPARISON: CT dated 08/12/2024. FINDINGS: Lung bases unremarkable. Heart size normal. Status post cholecystectomy. The liver, spleen, pancreas, adrenal glands are unremarkable. There are small low-density lesions in both kidneys, most likely benign cysts. Punctate 2 mm nonobstructing right renal stone. Nonobstructive bowel gas patter n. No significant vascular abnormality. Normal appendix. No lymphadenopathy. No abnormal pelvic masses or fluid collections. IMPRESSION: 1. No acute abdominal abnormality. 2: Nonobstructing 2 mm right renal stone. Reviewed, dictated and finalized at location O.
[2025-01-06 16:37] VITALS: BP 123/81; PULSE 68; RESP 16; TEMP 36.6; O2SAT 100
--- NOTE | 2025-01-06 16:42 | ED.FEMALEGU ---
HPI - Female Genitourinary General Chief complaint: Urogenital-Female Stated complaint: Left flank pain, on Macrobid Time Seen by Provider: 01/06/25 16:37 Source: patient Mode of arrival: ambulatory Limitations: no limitations History of Present Illness HPI Narrative: 39 years old white female, history of ulcerative colitis came to the ED by private car complaining of left upper quadrant sharp stabbing pain radiating to left flank area started noon today. History of urinary frequency and burning sensation was seen at urgent care 3 days ago with negative urinalysis, was discharged on Macrobid Patient denies any fever, chills, nausea, vomiting, diarrhea vaginal bleeding or discharge. Related Data Home Medications ?Medication ?Instructions ?Recorded ?Confirmed ?Last Taken ?Type alprazolam 0.5 mg tablet (Xanax) 0.5 mg PO .prn 08/20/24 10/04/24 09/18/24 History cetirizine 10 mg capsule (Zyrtec) 10 mg PO DAILY PRN allergy symptoms 08/20/24 10/04/24 09/18/24 History escitalopram oxalate 10 mg tablet 10 mg PO DAILY 08/20/24 10/04/24 09/18/24 History (Lexapro) fluticasone propionate 50 1 spray intranasal DAILY 08/20/24 10/04/24 Unknown History mcg/actuation nasal spray,suspension pantoprazole 40 mg tablet,delayed 40 mg PO DAILY 08/20/24 10/04/24 09/18/24 History release (Protonix) valacyclovir 500 mg tablet 500 mg PO DAILY PRN prn 08/20/24 10/04/24 Unknown History (Valtrex) vedolizumab 300 mg intravenous 300 mg IV ONCE 08/20/24 10/04/24 Unknown History solution (Entyvio) budesonide-formoterol HFA 80 1 inh inhalation TID 08/23/24 10/04/24 Unknown History mcg-4.5 mcg/actuation aerosol inhaler (Symbicort) Allergies Allergy/AdvReac Type Severity Reaction Status Date / Time doxycycline Allergy Intermediate Rash Verified 01/06/25 16:29 Sulfa (Sulfonamide Allergy Intermediate Rash Verified 01/06/25 16:29 Antibiotics) Review of Systems Review of Systems: All systems reviewed & are unremarkable except as noted in HPI and below PMFSH Past Medical History Medical History (Updated 01/06/25 @ 18:06 by Jerry Goncalves MD) Asthma Normal colonoscopy Irritable bowel Migraine GERD (gastroesophageal reflux disease) Colitis Crohn disease Anxiety Anemia Allergies Surgical History Surgical History (Updated 10/04/24 @ 09:46 by Ekaterina Mosley CMA) Hx laparoscopic cholecystectomy 09/19/[address] Valdivia History of tonsillectomy Family History Family History Mother Hypertension Father Hypertension Grandparent Heart abnormality Social History Social History Smoking status: Never smoker Alcohol intake: unknown Substance use: never Substance use type: does not use Do You Feel Safe in your Home?: Yes Lack of Transportation: No Lack of Food: Never True Current Housing: I Have Housing Concerned About Future Housing: No Difficulty Paying Gas/Electric Bills: No Difficulty Paying for Meds: No Currently Unemployed: No Education: Bachelor's Degree Difficulty w/ Childcare or Family Care: No Living arrangements: with family Occupation/Education: occupation Exam Narrative: General appearance: Well-developed, well-nourished Skin: Normal color Head: Normocephalic, nontraumatic Eyes: Clear conjunctiva ENT: Oropharynx normal, ears normal, nose normal Neck: Supple, nontender Chest and respiratory: Airway patent, no respiratory distress, no accessory muscle use Heart: Regular rate/rhythm Abdomen: Soft, nontender, no organomegaly, quiet bowel sounds Vascular: Normal peripheral pulses, normal capillary refill. Musculoskeletal: Normal range of motion, nontender back Neurologic: Alert and oriented ?3, TILE AND MARBLE INSTALLER is normal as tested, no gross motor deficit Course Vital Signs Vital signs: Vital Signs Temperature 36.6 C 01/06/25 16:37 Pulse Rate 68 01/06/25 16:37 Respiratory Rate 16 01/06/25 16:37 Blood Pressure 123/81 01/06/25 16:37 Pulse Oximetry 100 01/06/25 16:37 Oxygen Delivery Room Air 01/06/25 16:37 Temperature 36.6 C 01/06/25 16:37 Pulse Rate 68 01/06/25 16:37 Respiratory Rate 16 01/06/25 16:37 Blood Pressure 123/81 01/06/25 16:37 Pulse Oximetry 100 01/06/25 16:37 Oxygen Delivery Room Air 01/06/25 16:37 MDM - Female Genitourinary MDM Narrative Medical decision making narrative: Patient presents with left upper quadrant left flank pain sharp stabbing few hour prior to arrival she works as a nurse. History of ulcerative colitis, Vital signs are stable Physical examination is unremarkable except patient having Holter monitor on the chest Differential diagnosis include anxiety like symptoms, urinary tract infection, constipation, colitis, diverticulitis,. Blood workup today includes CBC, CMP, lipase showed no acute abnormality Urinalysis showed no significant abnormality CT abdomen and pelvis with IV contrast showed no acute abnormality, nonobstructing 2 mm right renal stone Diagnosis abdominal pain of unknown etiology The pt was discharged to home.the pt,s condition upon discharge was fair,education was provided to the pt in reference to the final impression,discharge study results,treatment,prognosis and need for follow up . Medical Records Attestation: I reviewed the patient's medical records. Lab Data Attestation: I reviewed the patient's lab results. 01/06/25 16:49 01/06/25 16:49 Labs: Lab Results 01/06/25 01/06/25 Range/Units 16:49 16:51 WBC 8.4 (4.5-10.0) K/mm3 RBC 4.16 L (4.2-5.4) M/mm3 Hgb 11.9 L (12.0-15.0) g/dL Hct 35.7 L (37.0-47.0) % MCV 85.8 (80-100) fl MCH 28.6 (26-34) pg MCHC 33.3 (32-36) g/dl RDW 12.3 (11.5-14.5) % Plt Count 344 (150-375) k/mm3 MPV 8.9 (7.4-10.4) fl Immature Gran % (Auto) 0.1 (0-0.5) % Neut % (Auto) 70.1 (45.5-73.1) % Lymph % (Auto) 20.0 (18.3-44.2) % Dickey % (Auto) 6.2 (2.6-8.5) % Eos % (Auto) 3.0 (0-4.4) % Baso % (Auto) 0.6 (0.2-1.2) % Lymph # (Auto) 1.68 (0.9-3.2) K/mm3 Dickey # (Auto) 0.5 (0.1-0.6) K/mm3 Eos # (Auto) 0.3 (0-0.3) K/mm3 Baso # (Auto) 0.1 (0.0-0.1) K/mm3 Abs Immat Gran (auto) 0.01 (0.00-0.031) K/mm3 Absolute Neuts (auto) 5.9 (1.3-6.7) K/mm3 Absolute Nucleated RBC 0.000 (0.0-0.012) K/mm3 Nucleated RBC % 0.0 (0.0-0.2) % Sodium 138 (137-145) mmol/L Potassium 3.6 (3.4-5.0) mmol/L Chloride 104 (98-107) mmol/L Carbon Dioxide 28 (22-30) mmol/L Anion Gap 6 (4-12) mmol/L BUN 11 (7-17) mg/dL Creatinine 0.69 L (0.7-1.0) mg/dL Estim Creat Clear Calc 110 ml/min Estimated GFR > 60 (59 - ) Glucose 87 (65-110) mg/dL Calcium 9.4 (8.4-10.2) mg/dL Total Bilirubin 0.3 (0.2-1.3) mg/dL AST 22 (14-36) U/L ALT 14 (6-35) U/L Alkaline Phosphatase 59 (38-126) U/L Total Protein 7.9 (6.3-8.2) g/dL Albumin 4.6 (3.5-5.1) g/dL Urine Color Yellow (Yellow) Urine Appearance Clear (Clear) Urine pH 7.0 (5.0-9.0) Ur Specific [place] 1.004 (1.001-1.035) Urine Protein Negative (Negative) mg/dL Urine Glucose (UA) Negative (Negative) mg/dL Urine Ketones Negative (Negative) mg/dL Ur Blood (Man) 2+ H (Negative) Urine Nitrate Negative (Negative) Urine Bilirubin Negative (Negative) Urine Urobilinogen 0.2 (<2.0) mg/dL Leukocyte Esterase Rfl Negative (Negative) SHAMIKA/UL Urine RBC 0-2 (0-2) /hpf Urine WBC 0-5 (0-3) /hpf Ur Squamous Epith Cells None seen (Few) /hpf Urine Bacteria None seen /hpf Urine Casts 0-2 POC Urine HCG, Qual Negative (Negative) Imaging Data Radiologist's impression: Impressions Abdomen/Pelvis CT 01/06/25 17:33 IMPRESSION: 1. No acute abdominal abnormality. 2: Nonobstructing 2 mm right renal stone. Critical Care Time Critical Care Time Critical Care Time: No Discharge Plan Discharge Clinical Impression: Abdominal pain Patient Disposition: Home Condition: Stable Instructions: Abdominal Pain (ED) Additional Instructions: Return if symptoms are worsening , call your family physician for appointment, take Tylenol as as needed for aches and pain, continue home medications. Patient Language: Belarusian Prescriptions: No Action budesonide-formoterol [Symbicort] 80-4.5 mcg/actuation HFA aerosol inhaler 1 inh inhalation TID pantoprazole [Protonix] 40 mg tablet,delayed release (DR/EC) 40 mg PO DAILY escitalopram oxalate [Lexapro] 10 mg tablet 10 mg PO DAILY Zyrtec 10 mg capsule 10 mg PO DAILY PRN (Reason: allergy symptoms) valacyclovir [Valtrex] 500 mg tablet 500 mg PO DAILY PRN (Reason: prn) alprazolam [Xanax] 0.5 mg tablet 0.5 mg PO .prn Entyvio 300 mg recon soln 300 mg IV ONCE Patient Comments: every 8 weeks Rx Instructions: administer over 30 mins fluticasone propionate 50 mcg/actuation spray,suspension 1 spray intranasal DAILY Rx Instructions: administer into each nostril Follow-up/Referrals: PHYSICIAN NOT ON STAFF,NONSTAFF [Primary Care Provider]
[2025-01-06 16:53] LABS: BEDSIDEPREGUCG Negative (Negative)
[2025-01-06 16:57] LABS: Hematocrit 35.7 % (37.0-47.0); Hemoglobin 11.9 g/dL (12.0-15.0); Immature Granulocyte Percent A 0.1 % (0-0.5); Lymphocytes Absolute Auto 1.68 K/mm3 (0.9-3.2); Mean Corpuscular HGB Conc 33.3 g/dl (32-36); Mean Corpuscular Hemoglobin 28.6 pg (26-34); Mean Corpuscular Volume 85.8 fl (80-100); Nucleated Red Blood Cells Absolute Auto 0.000 K/mm3 (0.0-0.012); Nucleated Red Blood Cells Perc 0.0 % (0.0-0.2); Platelet Count Result 344 k/mm3 (150-375); Red Blood Count 4.16 M/mm3 (4.2-5.4); White Blood Count 8.4 K/mm3 (4.5-10.0)
--- OUTSIDE RECORDS SUMMARY | 2025-01-06 16:58 | XMS_ITS | Encounter Summary ---
Author Organization [facility] Address [address] [place] [address] Care Team Providers Care Stock Selector Name Role Phone Porsha Garrido MD Primary Care Provider [phone] Encounter Details Date Type Department Care Team (Late st Contact Info) Description 06/29/2005 Outpatient Historical [facility] Pediatrics [place] [address] [place] [phone] Deshawn Kitchen MD NO ADDRESS ON FILE Social History Tobacco Use Types Packs/Day Years Used Date Smoking Tobacco: Never Assessed Comments Unknown Sex and Gender Information Value Date Recorded Sex Assigned at Not on file Legal Sex Female 3:08 AM GRAPE CRUSHER Gender Identity Not on file Sexual Orientation Not on file documented as of this encounter Plan of Treatment Upcoming Encounters Date Type Department Care Team (Late st Contact Info) Description 06/25/2025 3:10 PM GRAPE CRUSHER Office Visit [facility] Gastroenterology [place] [address] [place] [address] Gary Burgess MD [id number] [place] [address] 08/08/2025 10:30 AM CDT Office Visit [facility] Neurology [address] [place] [address] Rama De La Paz MD [address] [facility] [address] [place] [address] documented as of this encounter Visit Diagnoses Not on filedocumented in this encounter Additional Health Concerns Infection Onset Date Last Indicated Resolved Time R/O C. diff 05/21/2020 05/21/2020 05/21/2020 1:01 PM GRAPE CRUSHER R/O C. diff 10/31/2021 10/30/2021 10/31/2021 3:51 PM CDT R/O C. diff 09/01/2022 08/31/2022 09/01/2022 5:17 PM CDT documented as of this encounter Care Teams Stock Selector Relationship Specialty Start Date End Date Porsha Garrido MD [address] [place] [id number] PCP - General 03/04/09 documented as of this encounter
--- OUTSIDE RECORDS SUMMARY | 2025-01-06 16:58 | XMS_ITS | Encounter Summary ---
Author Organization [facility] Address [address] [place] [address] Care Team Providers Care Papeterie Table Assembler Name Role Phone Porsha Garrido MD Primary Care Provider Encounter Details Date Type Department Care Team (Late st Contact Info) Description 01/02/1998 Outpatient Historical [facility] Pediatrics [place] [address] [facility] [place] [address] [place] [phone] Deshawn Kitchen MD NO ADDRESS ON FILE Social History Tobacco Use Types Packs/Day Years Used Date Smoking Tobacco: Never Assessed Comments Unknown Sex and Gender Information Value Date Recorded Sex Assigned at Not on file Legal Sex Female 3:08 AM BLOOM CONVEYOR OPERATOR Gender Identity Not on file Sexual Orientation Not on file documented as of this encounter Plan of Treatment Upcoming Encounters Date Type Department Care Team (Late st Contact Info) Description 06/25/2025 3:10 PM BLOOM CONVEYOR OPERATOR Office Visit [facility] Gastroenterology [place] [address] [place] [address] Gary Burgess MD [id number] [place] [address] 08/08/2025 10:30 AM CDT Office Visit [facility] Neurology [address] [place] [address] Rama De La Paz MD [address] [facility] [address] [place] [address] documented as of this encounter Visit Diagnoses Not on filedocumented in this encounter Additional Health Concerns Infection Onset Date Last Indicated Resolved Time R/O C. diff 05/21/2020 05/21/2020 05/21/2020 1:01 PM BLOOM CONVEYOR OPERATOR R/O C. diff 10/31/2021 10/30/2021 10/31/2021 3:51 PM CDT R/O C. diff 09/01/2022 08/31/2022 09/01/2022 5:17 PM CDT documented as of this encounter Care Teams Papeterie Table Assembler Relationship Specialty Start Date End Date Porsha Garrido MD [address] [place] [id number] PCP - General 03/04/09 documented as of this encounter
--- OUTSIDE RECORDS SUMMARY | 2025-01-06 16:58 | XMS_ITS | Encounter Summary ---
Author Organization [facility] Address [address] [place] [address] Care Team Providers Care Fish Bailer Name Role Phone Porsha Garrido MD Primary Care Provider Encounter Details Date Type Department Care Team (Late st Contact Info) Description 08/15/2001 Outpatient Historical [facility] Pediatrics [place] [address] [facility] [place] [phone] Deshawn Kitchen MD NO ADDRESS ON FILE Social History Tobacco Use Types Packs/Day Years Used Date Smoking Tobacco: Never Assessed Comments Unknown Sex and Gender Information Value Date Recorded Sex Assigned at Not on file Legal Sex Female 3:08 AM SIGN LANGUAGE INSTRUCTOR Gender Identity Not on file Sexual Orientation Not on file documented as of this encounter Plan of Treatment Upcoming Encounters Date Type Department Care Team (Late st Contact Info) Description 06/25/2025 3:10 PM SIGN LANGUAGE INSTRUCTOR Office Visit [facility] Gastroenterology [place] [address] [place] [address] Gary Burgess MD [id number] [place] [address] 08/08/2025 10:30 AM CDT Office Visit [facility] Neurology [address] [place] [address] Rama De La Paz MD [address] [facility] [address] [place] [address] documented as of this encounter Visit Diagnoses Not on filedocumented in this encounter Additional Health Concerns Infection Onset Date Last Indicated Resolved Time R/O C. diff 05/21/2020 05/21/2020 05/21/2020 1:01 PM SIGN LANGUAGE INSTRUCTOR R/O C. diff 10/31/2021 10/30/2021 10/31/2021 3:51 PM CDT R/O C. diff 09/01/2022 08/31/2022 09/01/2022 5:17 PM CDT documented as of this encounter Care Teams Fish Bailer Relationship Specialty Start Date End Date Porsha Garrido MD [address] [place] [address] PCP - General 03/04/09 documented as of this encounter
--- OUTSIDE RECORDS SUMMARY | 2025-01-06 16:58 | XMS_ITS | Encounter Summary ---
Author Organization [facility] Address [address] [place] [address] Care Team Providers Care Gluing Pressman Name Role Phone Porsha Garrido MD Primary Care Provider Encounter Details Date Type Department Care Team (Late st Contact Info) Description 06/29/2005 Orders Only [facility] Pediatrics [place] [address] [facility] [place] [address] Vandana Hernandez NP NO ADDRESS ON FILE Social History Tobacco Use Types Packs/Day Years Used Date Smoking Tobacco: Never Assessed Comments Unknown Sex and Gender Information Value Date Recorded Sex Assigned at Not on file Legal Sex Female 3:08 AM CULLET CRUSHER AND WASHER Gender Identity Not on file Sexual [...] wk, 6 days NURSE NAME: Vicenta Tidwell E wt-117 lb temp-99.0ty ACCOMPANIED BY: The patient came alone. HISTORY PROVIDED BY: The patient history was provided by the patient (alone). ALLERGIES: CURRENT ALLERGY LIST: [facility] MEDICATIONS: RN/MA reviewed medications.algera, advair, nexium CHIEF COMPLAINT: The child is here [...] was negative. ASSESSMENT/PLAN: 789.07-ABDOMINAL PAIN GENERALIZED ? SHOOK SPLICER in nature Abdominal and pelvic [facility] Call sooner if any increased sxs develop Electronically Signed by: YUSUF Ferrari on Wednesday, June 29, 2005 Electronically Signed by: Deshawn Kitchen MD on Thursday, June 30, 2005 documented in this encounter Plan of Treatment Upcoming Encounters Date Type Department Care Team (Late st Contact Info) Description 06/25/2025 3:10 PM CULLET CRUSHER AND WASHER Office Visit [facility] Gastroenterology [place] [address] [place] [address] Gary Burgess MD [id number] [place] [address] 08/08/2025 10:30 AM CDT Office Visit [facility] Neurology [facility] [address] [place] [address] Rama De La Paz MD [address] [place] [address] documented as of this encounter Visit Diagnoses Not on filedocumented in this encounter Additional Health Concerns Infection Onset Date Last Indicated Resolved Time R/O C. diff 05/21/2020 05/21/2020 05/21/2020 1:01 PM CULLET CRUSHER AND WASHER R/O C. diff 10/31/2021 10/30/2021 10/31/2021 3:51 PM CDT R/O C. diff 09/01/2022 08/31/2022 09/01/2022 5:17 PM CDT documented as of this encounter Care Teams Gluing Pressman Relationship Specialty Start Date End Date Porsha Garrido MD [address] [place] [address] [address] [place] [address] PCP - General 03/04/09 documented as of this encounter
--- OUTSIDE RECORDS SUMMARY | 2025-01-06 16:58 | XMS_ITS | Encounter Summary ---
Author Organization [facility] Address [address] [place] [address] Care Team Providers Care Strategic Insights Lead Name Role Phone Porsha Garrido MD Primary Care Provider [phone] Encounter Details Date Type Department Care Team (Late st Contact Info) Description 07/17/2005 Emergency [facility] Demond Desai Jr., MD [address] [place] [address] Er, Authorized P NO ADDRESS ON FILE NONINFEC GASTROENTERIT NEC (Primary Dx) Social History Tobacco Use Types Packs/Day Years Used Date Smoking Tobacco: Never Assessed Comments Unknown Sex and Gender Information Value Date Recorded Sex Assigned at Not on file Legal Sex Female 3:08 AM DRY BOX TENDER Gender Identity Not on file Sexual Orientation Not on file documented as of this encounter Plan of Treatment Upcoming Encounters Date Type Department Care Team (Late st Contact Info) Description 06/25/2025 3:10 PM DRY BOX TENDER Office Visit [facility] Gastroenterology [place] [address] [place] [address] Gary Burgess MD [address] [facility] [id number] [place] [address] 08/08/2025 10:30 AM CDT Office Visit [facility] Neurology [address] [address] [place] [address] Rama De La Paz MD [address] [place] [address] documented as of this encounter Procedures Procedure Name Priority Date/Time Associated Diagnosis Comments HCG QUALITATIVE, URINE Routine 07/17/2005 2:56 PM DRY BOX TENDER URINALYSIS W/REFLEX MICROSCOPIC Routine 07/17/2005 2:48 PM DRY BOX TENDER documented in this encounter Results * HCG QUALITATIVE, URINE (07/17/2005 2:56 PM DRY BOX TENDER) HCG QUAL URINE Negative Negative INTER FACE SYSTEM SPECIFIC GRAVITY UA 1.025 1.001 - 1.035 INTERFACE SYSTEM HCG QUAL URINE COMMENT INTERFACE SYSTEM Comment: Urine in lab 07/17/2005 2:56 PM DRY BOX TENDER Historical Provider URINE ORDERABLES Final Resul t Performing Organization Address [facility] de Phone Number INTERFACE SYSTEM Refer to clinic/hospital department * (ABNORMAL) URINALYSIS (07/17/2005 2:48 PM DRY BOX TENDER) COLOR UA Yellow INTERFACE SYSTEM CLARITY UA [...] 4 /HPF INTERFACE SYSTEM 07/17/2005 2:48 PM DRY BOX TENDER Historical Provider URINE ORDERABLES Final Resul t INTERFACE SYSTEM Refer to clinic/hospital department documented in this encounter Visit Diagnoses Diagnosis Other and unspecified noninfectious gastroenteritis and colitis(558.9)- Primary Other and unspecified noninfectious gastroenteritis and colitis documented in this encounter Additional Health Concerns Infection Onset Date Last Indicated Resolved Time R/O C. diff 05/21/2020 05/21/2020 05/21/2020 1:01 PM DRY BOX TENDER R/O C. diff 10/31/2021 10/30/2021 10/31/2021 3:51 PM CDT R/O C. diff 09/01/2022 08/31/2022 09/01/2022 5:17 PM CDT documented as of this encounter Care Teams Strategic Insights Lead Relationship Specialty Start Date End Date Porsha Garrido MD [address] [place] [id number] PCP - General 03/04/09 documented as of this encounter
--- OUTSIDE RECORDS SUMMARY | 2025-01-06 16:58 | XMS_ITS | Encounter Summary ---
Author Organization [facility] Address [address] [place] [address] Care Team Providers Care Airport Manager Name Role Phone Porsha Garrido MD Primary Care Provider Encounter Details Date Type Department Care Team (Late st Contact Info) Description 03/20/2001 Outpatient Historical [facility] Pediatrics [place] [address] [facility] [place] [address] Deshawn Kitchen MD NO ADDRESS ON FILE Social History Tobacco Use Types Packs/Day Years Used Date Smoking Tobacco: Never Assessed Comments Unknown Sex and Gender Information Value Date Recorded Sex Assigned at Not on file Legal Sex Female 3:08 AM C D STRIPPER Gender Identity Not on file Sexual Orientation Not on file documented as of this encounter Plan of Treatment Upcoming Encounters Date Type Department Care Team (Late st Contact Info) Description 06/25/2025 3:10 PM C D STRIPPER Office Visit [facility] Gastroenterology [place] [address] [place] [address] Gary Burgess MD [id number] [place] [address] 08/08/2025 10:30 AM CDT Office Visit [facility] Neurology [address] [address] [place] [address] Rama De La Paz MD [address] [facility] [address] [place] [address] documented as of this encounter Visit Diagnoses Not on filedocumented in this encounter Additional Health Concerns Infection Onset Date Last Indicated Resolved Time R/O C. diff 05/21/2020 05/21/2020 05/21/2020 1:01 PM C D STRIPPER R/O C. diff 10/31/2021 10/30/2021 10/31/2021 3:51 PM CDT R/O C. diff 09/01/2022 08/31/2022 09/01/2022 5:17 PM CDT documented as of this encounter Care Teams Airport Manager Relationship Specialty Start Date End Date Porsha Garrido MD [address] [place] [address] PCP - General 03/04/09 documented as of this encounter
--- OUTSIDE RECORDS SUMMARY | 2025-01-06 16:58 | XMS_ITS | Encounter Summary ---
Author Organization [facility] Address [address] [place] [address] Care Team Providers Care Perl Software Engineer Name Role Phone Porsha Garrido MD Primary Care Provider Encounter Details Date Type Department Care Team (Late st Contact Info) Description 12/01/[address] [facility] Pediatrics [place] [address] [facility] [place] [address] [place] [phone] Deshawn Kitchen MD NO ADDRESS ON FILE Social History Tobacco Use Types Packs/Day Years Used Date Smoking Tobacco: Never Assessed Comments Unknown Sex and Gender Information Value Date Recorded Sex Assigned at Not on file Legal Sex Female 3:08 AM MACHINE BUILDER Gender Identity Not on file Sexual Orientation Not on file documented as of this encounter Plan of Treatment Upcoming Encounters Date Type Department Care Team (Late st Contact Info) Description 06/25/2025 3:10 PM MACHINE BUILDER Office Visit [facility] Gastroenterology [place] [address] [place] [address] Gary Burgess MD [address] [id number] [place] [address] 08/08/2025 10:30 AM CDT Office Visit [facility] Neurology [address] [place] [address] Rama De La Paz MD [address] [facility] [address] [place] [address] documented as of this encounter Visit Diagnoses Not on filedocumented in this encounter Additional Health Concerns Infection Onset Date Last Indicated Resolved Time R/O C. diff 05/21/2020 05/21/2020 05/21/2020 1:01 PM MACHINE BUILDER R/O C. diff 10/31/2021 10/30/2021 10/31/2021 3:51 PM CDT R/O C. diff 09/01/2022 08/31/2022 09/01/2022 5:17 PM CDT documented as of this encounter Care Teams Perl Software Engineer Relationship Specialty Start Date End Date Porsha Garrido MD [address] [place] [address] PCP - General 03/04/09 documented as of this encounter
--- OUTSIDE RECORDS SUMMARY | 2025-01-06 16:58 | XMS_ITS | Encounter Summary ---
Author Organization [facility] Address [address] [place] [address] Care Team Providers Care High Raw Sugar Boiler Name Role Phone Porsha Garrido MD Primary Care Provider [phone] Encounter Details Date Type Department Care Team (Late st Contact Info) Description 08/15/2000 Outpatient Historical [facility] Pediatrics [place] [address] [facility] [place] [phone] Deshawn Kitchen MD NO ADDRESS ON FILE Social History Tobacco Use Types Packs/Day Years Used Date Smoking Tobacco: Never Assessed Comments Unknown Sex and Gender Information Value Date Recorded Sex Assigned at Not on file Legal Sex Female 3:08 AM HISTORICAL MANUSCRIPTS CURATOR Gender Identity Not on file Sexual Orientation Not on file documented as of this encounter Plan of Treatment Upcoming Encounters Date Type Department Care Team (Late st Contact Info) Description 06/25/2025 3:10 PM HISTORICAL MANUSCRIPTS CURATOR Office Visit [facility] Gastroenterology [place] [address] [place] [address] Gary Burgess MD [address] [id number] [place] [address] 08/08/2025 10:30 AM CDT Office Visit [facility] Neurology [address] [place] [address] Rama De La Paz MD [address] [facility] [address] [place] [address] documented as of this encounter Visit Diagnoses Not on filedocumented in this encounter Additional Health Concerns Infection Onset Date Last Indicated Resolved Time R/O C. diff 05/21/2020 05/21/2020 05/21/2020 1:01 PM HISTORICAL MANUSCRIPTS CURATOR R/O C. diff 10/31/2021 10/30/2021 10/31/2021 3:51 PM CDT R/O C. diff 09/01/2022 08/31/2022 09/01/2022 5:17 PM CDT documented as of this encounter Care Teams High Raw Sugar Boiler Relationship Specialty Start Date End Date Porsha Garrido MD [address] [place] [address] PCP - General 03/04/09 documented as of this encounter
--- OUTSIDE RECORDS SUMMARY | 2025-01-06 16:58 | XMS_ITS | Encounter Summary ---
Author Organization [facility] Address [address] [place] [address] Care Team Providers Care Riddler Operator Name Role Phone Unavailable Primary Care Provider Unavailabl e Prior Encounters Date Type Department Care Team Description 10/24/2024 9:15 AM CDT Office Visit [facility] [address] [place] [address] Anahi Leigh DDS Dental caries, unspecified (Primary Dx); Encounter for dental examination and cleaning without abnormal findings 01/31/2024 Travel 01/31/2024 2:00 PM CDT Office Visit [facility] [address] [place] [address] Princess Soto DDS Dental caries, unspecified (Primary Dx) 01/30/2024 10:00 AM CDT Office Visit [facility] [address] [place] [address] Princess Soto DDS Encounter for dental examination and cleaning without abnormal findings (Primary Dx); Dental caries, unspecified 07/18/2023 Travel 07/18/2023 2:30 PM DIVISION CHIEF Office Visit [facility] [address] [place] [address] Princess Soto DDS Encounter for dental examination and cleaning without abnormal findings (Primary Dx) 12/02/2022 8:00 AM CDT Office Visit [facility] [address] [place] [address] Princess Soto DDS 02/18/2022 Travel 02/18/2022 4:00 PM CDT Office Visit [facility] [address] [facility] [place] [address] Princess Soto, YAMILET 11/21/2020 Travel 11/21/2020 10:30 AM CDT Office Visit [facility] [address] [facility] [place] [address] Heri Napoles, [facility] 11/21/2020 10:15 AM CDT Office Visit [facility] [address] [facility] [place] [address] Javy Keita, DMD 06/04/2019 Converted CPS Chart Documents [facility] [address] [facility] [place] [phone] <No scans attached> 06/04/2019 Converted 13x Documents [facility] [address] [facility] [place] [address] <No scans attached> Last Filed Vital Signs Vital Sign Reading Time Taken Comments Blood Pressure 125/67 01/31/2024 1:57 PM CDT Pulse 69 01/31/2024 1:57 PM CDT Temperature - - Respiratory Rate - - Oxygen Saturation - - Inhaled Oxygen Concentration - - Weight 86.2 kg (190 lb) 12/02/2022 8:08 AM CDT Height 172.7 cm (5' 8) 12/02/2022 8:08 AM CDT Body Mass Index 28.89 12/02/2022 8:08 AM CDT Plan of Treatment Upcoming Encounters Date Type Department Care Team (Late st Contact Info) Description 04/25/2025 8:00 AM DIVISION CHIEF Office Visit [facility] [address] [facility] [place] [address] Anahi Leigh, DDS [address] [facility] [place] [address] Procedures Procedure Name Priority Date/Time Associated Diagnosis Comments PERIODIC ORAL EVALUATION - ESTABLISHED PATIENT Routine 10/24/2024 9:15 AM CDT Encounter for dental examination and cleaning without abnormal findings PROPHYLAXIS - ADULT Routine 10/24/2024 9 :15 AM CDT Encounter for dental examination and cleaning without abnormal findings ORAL HYGIENE INSTRUCTIONS Routine 2024 9:15 AM CDT TOPICAL APPLICATION OF FLUORIDE VARNISH Routine 10/24/2024 9:15 AM CDT 30 O RESIN-BASED COMPOSITE - ONE SURFACE, [...] OF FLUORIDE VARNISH Routine 07/18/2023 2:30 PM DIVISION CHIEF PROPHYLAXIS - ADULT Routine 07/18/2023 2 :30 PM DIVISION CHIEF Encounter for dental examination and cleaning without abnormal findings BITEWINGS - FOUR RADIOGRAPHIC IMAGES Routine 07/18/2023 2:30 PM DIVISION CHIEF PERIODIC ORAL EVALUATION - ESTABLISHED PATIENT Routine 07/18/2023 2:30 PM DIVISION CHIEF Encounter for dental examination and cleaning without [...] ORAL HYGIENE INSTRUCTIONS Routine 2019 2:00 AM DIVISION CHIEF TOPICAL APPLICATION OF FLUORIDE VARNISH Routine 06/25/2019 2:00 AM DIVISION CHIEF PROPHYLAXIS - ADULT Routine 06/25/2019 2 :00 AM DIVISION CHIEF COMPREHENSIVE ORAL EVALUATION - NEW OR ESTABLISHED PATIENT Routine 06/25/2019 2:00 AM DIVISION CHIEF PANORAMIC RADIOGRAPHIC IMAGE Routine 06/25/2019 2:00 AM DIVISION CHIEF INTRAORAL - COMPREHENSIVE SERIES OF RADIOGRAPHIC IMAGES Routine 06/25/2019 2:00 AM DIVISION CHIEF INTRAORAL PHOTO Routine 06/25/2019 2:00 AM DIVISION CHIEF INTRAORAL PHOTO Routine 06/25/2019 2:00 AM DIVISION CHIEF INTRAORAL PHOTO Routine 06/25/2019 2:00 AM DIVISION CHIEF INTRAORAL PHOTO Routine 06/25/2019 2:00 AM DIVISION CHIEF 30 O COMPOSITE FILLING Routine 0 2:00 AM DIVISION CHIEF CANCELLED APPOINTMENT Routine 06/20/2019 2:00 AM DIVISION CHIEF Visit Diagnoses Diagnosis Start Date Encounter for dental examination and cleaning without abnormal findings 07/18/2023 Encounter for dental examination and cleaning without abnormal findings 01/30/2024 Dental caries, unspecified 01/30/2024 Dental caries, unspecified 01/31/2024 Dental caries, unspecified 10/24/2024 Encounter for dental examination and cleaning without abnormal findings 10/24/2024 Insurance [facility] [place] PPO
--- OUTSIDE RECORDS SUMMARY | 2025-01-06 16:58 | XMS_ITS | Encounter Summary ---
Author Organization [facility] Address [address] [place] [address] Care Team Providers Care Mechanical Product Engineer Name Role Phone Porsha Garrido MD Primary Care Provider Encounter Details Date Type Department Care Team (Late st Contact Info) Description 05/10/2001 Outpatient Historical [facility] Pediatrics [place] [address] [facility] [place] [phone] Deshawn Kitchen MD NO ADDRESS ON FILE Social History Tobacco Use Types Packs/Day Years Used Date Smoking Tobacco: Never Assessed Comments Unknown Sex and Gender Information Value Date Recorded Sex Assigned at Not on file Legal Sex Female 3:08 AM TIRE BALANCER Gender Identity Not on file Sexual Orientation Not on file documented as of this encounter Plan of Treatment Upcoming Encounters Date Type Department Care Team (Late st Contact Info) Description 06/25/2025 3:10 PM TIRE BALANCER Office Visit [facility] Gastroenterology [place] [address] [place] [address] Gary Burgess MD [address] [id number] [place] [address] 08/08/2025 10:30 AM CDT Office Visit [facility] Neurology [address] [place] [address] Rama De La Paz MD [address] [facility] [address] [place] [address] documented as of this encounter Visit Diagnoses Not on filedocumented in this encounter Additional Health Concerns Infection Onset Date Last Indicated Resolved Time R/O C. diff 05/21/2020 05/21/2020 05/21/2020 1:01 PM TIRE BALANCER R/O C. diff 10/31/2021 10/30/2021 10/31/2021 3:51 PM CDT R/O C. diff 09/01/2022 08/31/2022 09/01/2022 5:17 PM CDT documented as of this encounter Care Teams Mechanical Product Engineer Relationship Specialty Start Date End Date Porsha Garrido MD [address] [place] [address] PCP - General 03/04/09 documented as of this encounter
--- OUTSIDE RECORDS SUMMARY | 2025-01-06 16:58 | XMS_ITS | Clinical Summary ---
Author Organization [facility] Address [address] [facility] [place] [address] Phone Care Team Providers Care Prior Authorization Technician Name Role Phone Porsha Garrido MD Primary Care Provider Allergies Active Allergy Reactions Criticality Noted Date Comments Azithromycin Unknown Doxycycline Hcl Rash Low 02/11/2015 Sulfa (Sulfonamide Antibiotics) Other (See Comments),Rash Medium 02/04/2009 Unknown ask Medications valACYclovir 500 mg tablet Take 500 mg by mouth daily. Active cetirizine HCl (ZYRTEC ORAL) Take by mouth. A ctive fluticasone propionate (FLONASE) 50 mcg/spray Stanley, Suspension nasal inhaler Administer 2 Sprays in each nostril daily. Active ALPRAZolam (XANAX) 0.5 mg tablet TAKE 1 TABLET BY MOUTH THREE TIMES A DAY NEEDED FOR ANXIETY 04/02/20 Active budesonide-formotero L (SYMBICORT) 80-4.5 mcg/actuation HFA Aerosol Inhaler Take 2 Puffs by inhalation 2 times daily. Active albuterol (PROVENTIL,VENTOLIN) 0.63 mg/3 mL Solution for Nebulization Take 0.63 mg by inhalation one time only. Active hyoscyamine 0.[address] 1 TABLET (0.125 MG) UNDER TONGUE 4 TIMES DAILY NEEDED FOR SPASM. 120 Tablet 5 01/18/20 24 Active DULoxetine (CYMBALTA) 60 mg Capsule, Delayed Release(E.C.) Take 60 mg by mouth daily. 06/15/19 25 Active pantoprazole (PROTONIX) 40 mg Tablet, Delayed Release (E.C.)Indications:Ga stroesophageal reflux disease, unspecified whether esophagitis present Take 1 Tablet (40 mg) by mouth daily. 90 Tablet 3 06/26/19 25 Active rizatriptan (MAXALT) 10 mg Tablet Take 1 Tablet (10 mg) by mouth one time as needed for Migraine. may repeat in 2 hours; max dose 20mg in 24 hours 9 Tablet 11 08/09/19 25 Active escitalopram oxalate (LEXAPRO) 10 mg tablet Take 10 mg by mouth daily. 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 1.36 mL 11 11/14/19 25 Active baclofen (LIORESAL) 5 mg tablet TAKE 1 TABLET (5 MG) BY MOUTH 1 TIME DAILY NEEDED FOR PAIN. 90 Tablet 2 12/06/19 25 Active Active Problems Problem Noted Date Diagnosed Date Microscopic colitis 02/27/2010 Ulcerative colitis 02/27/2010 Abdominal pain, generalized 06/29/2005 Esophageal reflux 11/23/2004 Routine or child health check 07/31/2004 Closed fracture of unspecified part of forearm 0 12/09/1995 Varicella without mention of complication 1992 Unspecified asthma(493.90) 12/26/1989 Gastro Procedure Overview (03/29/2011): Procedures EGD, 02/27/10, RSS Colonoscopy, 02/27/10, RSS Bloody stool Encounters Date Type Department Care Team Description 01/01/2025 External Device Data [facility] ABSTRACTION Provider, Abstract 01/01/2025 External Device Data [facility] Provider, Abstract 12/25/2024 External Device Data [facility] Provider, Abstract 12/05/2024 [facility] [address] [facility] [address] [place] [address] Rama De La Paz MD 11/28/2024 External Device Data [facility] [place] Provider, Abstract 11/27/2024 External Device Data [facility] [place] Provider, Abstract 11/21/2024 Abstract [facility] Gastroenterology [place] [address] [place] [address] Gary Burgess MD 10/30/2024 External Device Data [facility] ABSTRACTION Provider, Abstract 10/17/2024 Telephone [facility] Gastroenterology [facility] [address] [facility] [address] [place] [address] Gary Burgess MD Requesting Plan of Treatment Orders Faxed 10/09/2024 External Device Data [facility] ABSTRACTION Provider, Abstract from Last 3 Months Immunizations Immunization Administration [...] on file Legal Sex Female 3:08 AM COMPOUNDER Gender Identity Not on file Sexual Orientation [...] 9:51 AM CDT Height 172.7 cm (5' 8) 09/12/2024 9:51 AM CDT Body Mass Index 28.28 09/12/2024 9:51 AM CDT Plan of Treatment Upcoming Encounters Date Type Department Care Team (Late st Contact Info) Description 06/25/2025 3:10 PM COMPOUNDER Office Visit [facility] Gastroenterology [place] [address] [place] [address] Gary Burgess MD [id number] [place] [address] 08/08/2025 10:30 AM CDT Office Visit [facility] Neurology [address] [place] [address] Rama De La Paz MD [address] [facility] [address] [place] [address] Health Maintenance Due Date Last Done Comments Pre-Diabetes and Diabetes Screening 1987 HPV/Cotest (21-29) 2008 HPV VACCINES (1 - 3-dose SCD M series) 2014 CERVICAL CANCER SCREENING 2017 HPV/Cotest (30-65) 2017 PAP SMEAR 2017 COVID-19 Vaccine (2023-2 5 season) 2024 04/27/2022, 10/08/2021, 04/03/2021, Additional history exists INFLUENZA VACCINE (#1) 2024 , 02/14/2023, 02/06/2022, Additional history exists DTAP/TDAP/TD VACCINES (5 - T d or Tdap) 02/14/2029 02/14/2019, 10/27/2011, 08/01/2002, Additional history exists HEPATITIS B VACCINES Completed 06/25/1998, 01/02/1998, 12/02/1997 Insurance [employer] FUND OA PLUS Advance Directives For more information, please contact: [phone] * Full Code (Latest Code Status on [...] 8:02 AM 01/01/2020 11:45 AM Care Teams Prior Authorization Technician Relationship Specialty Start Date End Date Porsha Garrido MD [address] [place] [address] PCP - General 03/04/09
--- OUTSIDE RECORDS SUMMARY | 2025-01-06 16:58 | XMS_ITS | Encounter Summary ---
Author Organization [facility] Address [address] [place] [address] Care Team Providers Care Certified Social Workers In Health Care Name Role Phone Porsha Garrido MD Primary Care Provider Encounter Details Date Type Department Care Team (Latest Contact Info) Description 07/23/2008 Outpatient Historical [facility] Gilbert Cummings MD NO ADDRESS ON FILE Lumbago; Unspecified Asthma; Esophageal Reflux Social History Tobacco Use Types Packs/Day Years Used Date Smoking Tobacco: Never Assessed Comments Unknown Sex and Gender Information Value Date Recorded Sex Assigned at Not on file Legal Sex Female 3:08 AM DATA POWER CONSULTANT Gender Identity Not on file Sexual Orientation Not on file documented as of this encounter Plan of Treatment Upcoming Encounters Date Type Department Care Team (Late st Contact Info) Description 06/25/2025 3:10 PM DATA POWER CONSULTANT Office Visit [facility] Gastroenterology [place] [address] [place] [address] Gary Burgess MD [id number] [place] [address] 08/08/2025 10:30 AM CDT Office Visit [facility] Neurology [address] [place] [address] Rama De La Paz MD [address] [facility] [address] [place] [address] documented as of this encounter Visit Diagnoses Diagnosis Lumbago Unspecified asthma(493.90) Unspecified asthma Esophageal reflux documented in this encounter Additional Health Concerns Infection Onset Date Last Indicated Resolved Time R/O C. diff 05/21/2020 05/21/2020 05/21/2020 1:01 PM DATA POWER CONSULTANT R/O C. diff 10/31/2021 10/30/2021 10/31/2021 3:51 PM CDT R/O C. diff 09/01/2022 08/31/2022 09/01/2022 5:17 PM CDT documented as of this encounter Care Teams Certified Social Workers In Health Care Relationship Specialty Start Date End Date Porsha Garrido MD [address] [place] [address] PCP - General 03/04/09 documented as of this encounter
--- OUTSIDE RECORDS SUMMARY | 2025-01-06 16:58 | XMS_ITS | Encounter Summary ---
Author Organization [facility] Address [address] [place] [address] Care Team Providers Care Jewelry Inspector Name Role Phone Porsha Garrido MD Primary Care Provider Encounter Details Date Type Department Care Team (Late st Contact Info) Description 07/31/2004 Outpatient Historical [facility] [address] [facility] [place] [address] Deshawn Kitchen MD NO ADDRESS ON FILE Social History Tobacco Use Types Packs/Day Years Used Date Smoking Tobacco: Never Assessed Comments Unknown Sex and Gender Information Value Date Recorded Sex Assigned at Not on file Legal Sex Female 3:08 AM BLOCKMASON Gender Identity Not on file Sexual Orientation Not on file documented as of this encounter Last Filed Vital Signs Vital Sign Reading Time Taken Comments Blood Pressure - - Pulse - - Temperature - - Respiratory Rate - - Oxygen Saturation - - Inhaled Oxygen Concentration - - Weight 48.3 kg (106 lb 6 oz) 07/31/2004 9:12 AM BLOCKMASON Height 168.3 cm (5' 6.25) 07/31/2004 9:12 AM CS T Body Mass Index 17.04 07/31/2004 9:12 AM BLOCKMASON Body Mass Index Percentile 3.83% 07/31/2004 9:1 2 AM BLOCKMASON Growth Chart: CDC (Girls, 2- 20 Years) documented in this encounter Plan of Treatment Upcoming Encounters Date Type Department Care Team (Late st Contact Info) Description 06/25/2025 3:10 PM BLOCKMASON Office Visit [facility] Gastroenterology [place] [address] [place] [address] Gary Burgess MD [address] [id number] [place] [address] 08/08/2025 10:30 AM CDT Office Visit [facility] Neurology [facility] [address] [place] [address] Rama De La Paz MD [address] [place] [address] documented as of this encounter Visit Diagnoses Not on filedocumented in this encounter Additional Health Concerns Infection Onset Date Last Indicated Resolved Time R/O C. diff 05/21/2020 05/21/2020 05/21/2020 1:01 PM BLOCKMASON R/O C. diff 10/31/2021 10/30/2021 10/31/2021 3:51 PM CDT R/O C. diff 09/01/2022 08/31/2022 09/01/2022 5:17 PM CDT documented as of this encounter Care Teams Jewelry Inspector Relationship Specialty Start Date End Date Porsha Garrido MD [address] [place] [address] [address] [place] [address] PCP - General 03/04/09 documented as of this encounter
--- OUTSIDE RECORDS SUMMARY | 2025-01-06 16:58 | XMS_ITS | Encounter Summary ---
Author Organization [facility] Address [address] [place] [address] Care Team Providers Care Cloth Folder Hand Name Role Phone Porsha Garrido MD Primary Care Provider [phone] Encounter Details Date Type Department Care Team (Late st Contact Info) Description 03/29/2008 Outpatient Historical [place] [address] [place] [address] Blood in Stool Social History Tobacco Use Types Packs/Day Years Used Date Smoking Tobacco: Never Assessed Comments Unknown Sex and Gender Information Value Date Recorded Sex Assigned at Not on file Legal Sex Female 3:08 AM PROTECTIVE SERVICES OFFICER Gender Identity Not on file Sexual Orientation Not on file documented as of this encounter Plan of Treatment Upcoming Encounters Date Type Department Care Team (Late st Contact Info) Description 06/25/2025 3:10 PM PROTECTIVE SERVICES OFFICER Office Visit [facility] Gastroenterology [place] [address] [place] [address] Gary Burgess MD [address] [id number] [place] [address] 08/08/2025 10:30 AM CDT Office Visit [facility] Neurology [address] [place] [address] Rama De La Paz MD [address] [facility] [address] [place] [address] documented as of this encounter Procedures Procedure Name Priority Date/Time Associated Diagnosis Comments PATHOLOGY Routine 03/29/2008 11:10 AM PROTECTIVE SERVICES OFFICER POC , URINE Routine 03/29/2008 10:00 AM PROTECTIVE SERVICES OFFICER documented in this encounter Results * PATHOLOGY (03/29/2008 11:10 AM PROTECTIVE SERVICES OFFICER) FINAL REPORT [facility] [address], [place] [address] Patient: ALLY ARREAGA : 1985 Procedure Date: 03/29/2008 Accession Date: 03/29/2008 Case No: 1- [id number] Ordering Dr: ANAI GANT Case types AW, BW, FW, NW and SH are performed by [facility], [place], [place] SURGICAL PATHOLOGY & NON-GYNECOLOGIC CYTOPATHOLOGY REPORT [...] 03:01 pm Microscopic: The slides are labeled [id number], Ally Arreaga. The rectal mucosa contains scattered [...] am INTERFACE SYSTEM 03/29/2008 11:1 0 AM PROTECTIVE SERVICES OFFICER us Anai Gant MD PATHOLOGY/CYTOLOGY ORDERABLES F inal Result INTERFACE SYSTEM Refer to clinic/hospital department * POC , URINE (03/29/2008 10:00 AM PROTECTIVE SERVICES OFFICER) , URINE POC Negative Negative [facility] Urine specimen (specimen) 03/29/2008 10:00 AM PROTECTIVE SERVICES OFFICER 03/29/2008 10:00 AM PROTECTIVE SERVICES OFFICER us Anai Gant MD POINT OF CARE TESTING Final Res ult INTERFACE SYSTEM Refer to clinic/hospital department [facility] CLIA# [id number] [address] [facility] [place] [address] documented in this encounter Visit Diagnoses Diagnosis Blood in stool documented in this encounter Additional Health Concerns Infection Onset Date Last Indicated Resolved Time R/O C. diff 05/21/2020 05/21/2020 05/21/2020 1:01 PM PROTECTIVE SERVICES OFFICER R/O C. diff 10/31/2021 10/30/2021 10/31/2021 3:51 PM CDT R/O C. diff 09/01/2022 08/31/2022 09/01/2022 5:17 PM CDT documented as of this encounter Care Teams Cloth Folder Hand Relationship Specialty Start Date End Date Porsha Garrido MD [address] [place] [address] PCP - General 03/04/09 documented as of this encounter
--- OUTSIDE RECORDS SUMMARY | 2025-01-06 16:58 | XMS_ITS | Encounter Summary ---
Author Organization [facility] Address [address] [place] [address] Care Team Providers Care Tourist Information Officer Name Role Phone Porsha Garrido MD Primary Care Provider [phone] Encounter Details Date Type Department Care Team (Late st Contact Info) Description 01/17/1998 Outpatient Historical [facility] Pediatrics [place] [address] [facility] [place] [address] Eduardo Mason MD NO ADDRESS ON FILE Social History Tobacco Use Types Packs/Day Years Used Date Smoking Tobacco: Never Assessed Comments Unknown Sex and Gender Information Value Date Recorded Sex Assigned at Not on file Legal Sex Female 3:08 AM BARIATRIC PROGRAM COORDINATOR Gender Identity Not on file Sexual Orientation Not on file documented as of this encounter Plan of Treatment Upcoming Encounters Date Type Department Care Team (Late st Contact Info) Description 06/25/2025 3:10 PM BARIATRIC PROGRAM COORDINATOR Office Visit [facility] Gastroenterology [place] [address] [place] [address] Gary Burgess MD [address] [id number] [place] [address] 08/08/2025 10:30 AM CDT Office Visit [facility] Neurology [address] [place] [address] Rama De La Paz MD [address] [facility] [address] [place] [address] documented as of this encounter Visit Diagnoses Not on filedocumented in this encounter Additional Health Concerns Infection Onset Date Last Indicated Resolved Time R/O C. diff 05/21/2020 05/21/2020 05/21/2020 1:01 PM BARIATRIC PROGRAM COORDINATOR R/O C. diff 10/31/2021 10/30/2021 10/31/2021 3:51 PM CDT R/O C. diff 09/01/2022 08/31/2022 09/01/2022 5:17 PM CDT documented as of this encounter Care Teams Tourist Information Officer Relationship Specialty Start Date End Date Porsha Garrido MD [address] [place] [address] [address] [place] [address] PCP - General 03/04/09 documented as of this encounter
--- OUTSIDE RECORDS SUMMARY | 2025-01-06 16:58 | XMS_ITS | Encounter Summary ---
Author Organization [facility] Address [address] [place] [address] Care Team Providers Care Manager Regional Name Role Phone Porsha Garrido MD Primary Care Provider Encounter Details Date Type Department Care Team (Late st Contact Info) Description 03/27/1999 Outpatient Historical [facility] Pediatrics [place] [address] [facility] [place] [address] Ally Keller MD [address] [facility] [address] [place] [address] Social History Tobacco Use Types Packs/Day Years Used Date Smoking Tobacco: Never Assessed Comments Unknown Sex and Gender Information Value Date Recorded Sex Assigned at Not on file Legal Sex Female 3:08 AM EVENTS ASSISTANT Gender Identity Not on file Sexual Orientation Not on file documented as of this encounter Plan of Treatment Upcoming Encounters Date Type Department Care Team (Late st Contact Info) Description 06/25/2025 3:10 PM EVENTS ASSISTANT Office Visit [facility] Gastroenterology [place] [address] [place] [address] Gary Burgess MD [id number] [place] [address] 08/08/2025 10:30 AM CDT Office Visit [facility] Neurology [address] [facility] [address] [place] [address] Rama De La Paz MD [address] [facility] [address] [place] [address] documented as of this encounter Visit Diagnoses Not on filedocumented in this encounter Additional Health Concerns Infection Onset Date Last Indicated Resolved Time R/O C. diff 05/21/2020 05/21/2020 05/21/2020 1:01 PM EVENTS ASSISTANT R/O C. diff 10/31/2021 10/30/2021 10/31/2021 3:51 PM CDT R/O C. diff 09/01/2022 08/31/2022 09/01/2022 5:17 PM CDT documented as of this encounter Care Teams Manager Regional Relationship Specialty Start Date End Date Porsha Garrido MD [address] [place] [address] PCP - General 03/04/09 documented as of this encounter
--- OUTSIDE RECORDS SUMMARY | 2025-01-06 16:58 | XMS_ITS | Encounter Summary ---
Author Organization [facility] Address [address] [place] [address] Care Team Providers Care Infection Control Manager Name Role Phone Porsha Garrido MD Primary Care Provider [phone] Encounter Details Date Type Department Care Team (Late st Contact Info) Description 10/13/2005 Outpatient Historical [facility] Pediatrics [place] [address] [facility] [place] [address] Deshawn Kitchen MD NO ADDRESS ON FILE Social History Tobacco Use Types Packs/Day Years Used Date Smoking Tobacco: Never Assessed Comments Unknown Sex and Gender Information Value Date Recorded Sex Assigned at Not on file Legal Sex Female 3:08 AM SQL DATABASE ADMINISTRATOR Gender Identity Not on file Sexual Orientation Not on file documented as of this encounter Plan of Treatment Upcoming Encounters Date Type Department Care Team (Late st Contact Info) Description 06/25/2025 3:10 PM SQL DATABASE ADMINISTRATOR Office Visit [facility] Gastroenterology [place] [address] [place] [address] Gary Burgess MD [address] [id number] [place] [address] 08/08/2025 10:30 AM CDT Office Visit [facility] Neurology [address] [place] [address] Rama De La Paz MD [address] [facility] [address] [place] [address] documented as of this encounter Visit Diagnoses Not on filedocumented in this encounter Additional Health Concerns Infection Onset Date Last Indicated Resolved Time R/O C. diff 05/21/2020 05/21/2020 05/21/2020 1:01 PM SQL DATABASE ADMINISTRATOR R/O C. diff 10/31/2021 10/30/2021 10/31/2021 3:51 PM CDT R/O C. diff 09/01/2022 08/31/2022 09/01/2022 5:17 PM CDT documented as of this encounter Care Teams Infection Control Manager Relationship Specialty Start Date End Date Porsha Garrido MD [address] [place] [address] PCP - General 03/04/09 documented as of this encounter
--- OUTSIDE RECORDS SUMMARY | 2025-01-06 16:58 | XMS_ITS | Encounter Summary ---
Author Organization [facility] Address [address] [place] [address] Care Team Providers Care Wood Treating Inspector Name Role Phone Porsha Garrido MD Primary Care Provider [phone] Encounter Details Date Type Department Care Team (Late st Contact Info) Description 08/01/2002 Outpatient Historical [facility] Pediatrics [place] [address] [facility] [place] [address] Deshawn Kitchen MD NO ADDRESS ON FILE Social History Tobacco Use Types Packs/Day Years Used Date Smoking Tobacco: Never Assessed Comments Unknown Sex and Gender Information Value Date Recorded Sex Assigned at Not on file Legal Sex Female 3:08 AM COMPOSITION FLOOR SETTER Gender Identity Not on file Sexual Orientation Not on file documented as of this encounter Plan of Treatment Upcoming Encounters Date Type Department Care Team (Late st Contact Info) Description 06/25/2025 3:10 PM COMPOSITION FLOOR SETTER Office Visit [facility] Gastroenterology [place] [address] [place] [address] Gary Burgess MD [address] [id number] [place] [address] 08/08/2025 10:30 AM CDT Office Visit [facility] Neurology [address] [place] [address] Rama De La Paz MD [address] [facility] [address] [place] [address] documented as of this encounter Visit Diagnoses Not on filedocumented in this encounter Additional Health Concerns Infection Onset Date Last Indicated Resolved Time R/O C. diff 05/21/2020 05/21/2020 05/21/2020 1:01 PM COMPOSITION FLOOR SETTER R/O C. diff 10/31/2021 10/30/2021 10/31/2021 3:51 PM CDT R/O C. diff 09/01/2022 08/31/2022 09/01/2022 5:17 PM CDT documented as of this encounter Care Teams Wood Treating Inspector Relationship Specialty Start Date End Date Porsha Garrido MD [address] [place] [address] PCP - General 03/04/09 documented as of this encounter
--- OUTSIDE RECORDS SUMMARY | 2025-01-06 16:58 | XMS_ITS | Encounter Summary ---
Author Organization [facility] Address [address] [place] [address] Care Team Providers Care Fast Food Services Manager Name Role Phone Porsah Garrido MD Primary Care Provider Encounter Details Date Type Department Care Team (Late st Contact Info) Description 05/11/2002 Outpatient Historical [facility] Pediatrics [place] [address] [facility] [place] [address] Deshawn Kitchen MD NO ADDRESS ON FILE Social History Tobacco Use Types Packs/Day Years Used Date Smoking Tobacco: Never Assessed Comments Unknown Sex and Gender Information Value Date Recorded Sex Assigned at Not on file Legal Sex Female 3:08 AM WINEMAKER Gender Identity Not on file Sexual Orientation Not on file documented as of this encounter Plan of Treatment Upcoming Encounters Date Type Department Care Team (Late st Contact Info) Description 06/25/2025 3:10 PM WINEMAKER Office Visit [facility] Gastroenterology [place] [address] [place] [address] Gary Burgess MD [address] [id number] [place] [address] 08/08/2025 10:30 AM CDT Office Visit [facility] Neurology [address] [place] [address] Rama De La Paz MD [address] [facility] [address] [place] [address] documented as of this encounter Visit Diagnoses Not on filedocumented in this encounter Additional Health Concerns Infection Onset Date Last Indicated Resolved Time R/O C. diff 05/21/2020 05/21/2020 05/21/2020 1:01 PM WINEMAKER R/O C. diff 10/31/2021 10/30/2021 10/31/2021 3:51 PM CDT R/O C. diff 09/01/2022 08/31/2022 09/01/2022 5:17 PM CDT documented as of this encounter Care Teams Fast Food Services Manager Relationship Specialty Start Date End Date Porsha Garrido MD [address] [place] [address] PCP - General 03/04/09 documented as of this encounter
--- OUTSIDE RECORDS SUMMARY | 2025-01-06 16:58 | XMS_ITS | Encounter Summary ---
Author Organization [facility] Address [address] [place] [address] Care Team Providers Care Engine Testing Supervisor Name Role Phone Porsha Garrido MD Primary Care Provider Carina Rey MD Unavailable Unavailable Gary Burgess MD Unavailable [phone] Evelyn García RN Unavailable [phone] Porsha Garrido MD Unavailable [phone] Joselito Gold MD Unavailable [phone] Porsha Garrido MD Unavailable [phone] Joselito Gold MD Unavailable [phone] Jolie Marrero PA-C Unavailable [phone] Porsha Garrido MD Unavailable [phone] Porsha Garrido MD Unavailable [phone] Joselito Casarez MD Unavailable Unavailable Michelle Nogueira APRN-SENIOR TELECOMMUNICATIONS TECHNICIAN Unavailable [phone] Porsha Garrido MD Unavailable [phone] Paloma Romo Unavailable Marjorie Weston DO Unavailable Porsha Garrido MD Unavailable [phone] Porsha Garrido MD Unavailable [phone] Encounter Details Date Type Department Care Team (Late st Contact Info) Description 09/11/2012 [facility] Outpatient Visit [facility] REHAB [address] [place] [address] Unknown, Provider Social History Tobacco Use Types Packs/Day Years Used Date Smoking Tobacco: Never Smokeless Tobacco: Never Alcohol Use Standard Drinks/Week Comments Yes 0 (1 standard drink = 0.6 oz pur e alcohol) occasionally Comments No Sex and Gender Information Value Date Recorded Sex Assigned at Not on file Legal Sex Female 12:18 PM NUCLEAR SPECTROSCOPIST Gender Identity Female 01/16/2019 9:49 AM CDT Sexual Orientation Not on file 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 Breast Care - Surgery [address] [place] [address] Nicky Sheridan P, PER DIEM CLERK-SENIOR TELECOMMUNICATIONS TECHNICIAN [address] [facility] [address] [place] [address] documented as of this encounter Visit Diagnoses Not on filedocumented in this encounter Additional Health Concerns Infection Onset Date Last Indicated Resolved Time COVID-19 Under Investigation 04/01/2020 04/01/2020 04/02/2020 2:40 PM NUCLEAR SPECTROSCOPIST COVID-19 Confirmed 04/01/2020 04/01/2020 0 4:34 AM NUCLEAR SPECTROSCOPIST documented as of this encounter Care Teams Engine Testing Supervisor Relationship Specialty Start Date End Date Porsha Garrido MD [address] [place] [address] PCP - General 01/31/11 Porsha Garrido MD [address] [place] [address] PCP - Attributed-[employer] Commercial 09/13/18 11/01/19 Joselito Gold MD [address] [place] [address] PCP - Attributed-[employer] 07/15/19 08/14/19 Porsha Garrido MD [address] [place] [address] PCP - Attributed-[employer] 08/15/19 07/13/20 Jolie Marrero PA-C [address] [place] [phone] PCP - Attributed-[employer] 07/14/20 08/13/20 Porsha Garrido MD [address] [place] [address] PCP - Attributed-[employer] 08/14/20 12/29/21 Porsha Garrido MD [address] [place] [address] PCP - Attributed-[employer] Commercial 05/16/22 08/31/22 Porsha Garrido MD [address] [place] [address] [address] [place] [address] PCP - Attributed-[employer] Commercial 11/13/22 07/31/24 Porsha Garrido MD [address] [place] [address] [place] [address] PCP - Attributed-[employer] 10/29/16 09/14/17 Porsha Garrido MD [address] [place] [address] [address] [place] [address] PCP - Attributed-[employer] 07/14/24 Carina Rey MD [address] [place] [address] [place] [address] Obstetrics and Gynecology 10/27/11 07/14/20 Gary Burgess MD [address] [place] [address] [address] [place] [address] Gastroenterology 08/22/13 Evelyn García RN Sample Worker 01/05/15 06/07/24 Joselito Gold MD [address] [place] [address] Obstetrics and Gynecology 07/15/20 5 Joselito Casarez MD [address] [place] [address] [place] [address] Hematology and Oncology 09/03/22 05/26/23 Michelle Nogueira APRN-SENIOR TELECOMMUNICATIONS TECHNICIAN [address] [place] [address] [address] [place] [address] Nurse Practitioner Nurse Practitioner Adult Health 09/03/22 12/24/24 Paloma Romo Care Coordination Specialist Care Management 12/13/23 12/13/23 Marjorie Weston DO [address] [address] Rheumatology 05/31/24 12/24/24 documented as of this encounter
--- OUTSIDE RECORDS SUMMARY | 2025-01-06 16:58 | XMS_ITS | Encounter Summary ---
Author Organization [facility] Address [address] [place] [address] Care Team Providers Care Sewage Screen Operator Name Role Phone Porsha Garrido MD Primary Care Provider Encounter Details Date Type Department Care Team (Late st Contact Info) Description 07/09/1998 Outpatient Historical [facility] Pediatrics [place] [address] [facility] [place] [address] Deshawn Kitchen MD NO ADDRESS ON FILE Social History Tobacco Use Types Packs/Day Years Used Date Smoking Tobacco: Never Assessed Comments Unknown Sex and Gender Information Value Date Recorded Sex Assigned at Not on file Legal Sex Female 3:08 AM WEB ANALYTICS DEVELOPER Gender Identity Not on file Sexual Orientation Not on file documented as of this encounter Plan of Treatment Upcoming Encounters Date Type Department Care Team (Late st Contact Info) Description 06/25/2025 3:10 PM WEB ANALYTICS DEVELOPER Office Visit [facility] Gastroenterology [place] [address] [place] [address] Gary Burgess MD [address] [id number] [place] [address] 08/08/2025 10:30 AM CDT Office Visit [facility] Neurology [address] [place] [address] Rama De La Paz MD [address] [facility] [address] [place] [address] documented as of this encounter Visit Diagnoses Not on filedocumented in this encounter Additional Health Concerns Infection Onset Date Last Indicated Resolved Time R/O C. diff 05/21/2020 05/21/2020 05/21/2020 1:01 PM WEB ANALYTICS DEVELOPER R/O C. diff 10/31/2021 10/30/2021 10/31/2021 3:51 PM CDT R/O C. diff 09/01/2022 08/31/2022 09/01/2022 5:17 PM CDT documented as of this encounter Care Teams Sewage Screen Operator Relationship Specialty Start Date End Date Porsha Garrido MD [address] [place] [address] PCP - General 03/04/09 documented as of this encounter
--- OUTSIDE RECORDS SUMMARY | 2025-01-06 16:58 | XMS_ITS | Encounter Summary ---
Author Organization [facility] Address [address] [place] [address] Care Team Providers Care Yoke Presser Name Role Phone Porsha Garrido MD Primary Care Provider [phone] Encounter Details Date Type Department Care Team (Late st Contact Info) Description 04/03/[address] [facility] Pediatrics [place] [address] [place] [address] [place] [address] Deshawn Kitchen MD NO ADDRESS ON FILE Social History Tobacco Use Types Packs/Day Years Used Date Smoking Tobacco: Never Assessed Comments Unknown Sex and Gender Information Value Date Recorded Sex Assigned at Not on file Legal Sex Female 3:08 AM ELECTRONICS ASSEMBLER AND TESTER Gender Identity Not on file Sexual Orientation Not on file documented as of this encounter Plan of Treatment Upcoming Encounters Date Type Department Care Team (Late st Contact Info) Description 06/25/2025 3:10 PM ELECTRONICS ASSEMBLER AND TESTER Office Visit [facility] Gastroenterology [place] [address] [place] [address] Gary Burgess MD [address] [id number] [place] [address] 08/08/2025 10:30 AM CDT Office Visit [facility] Neurology [address] [place] [address] Rama De La Paz MD [address] [facility] [address] [place] [address] documented as of this encounter Visit Diagnoses Not on filedocumented in this encounter Additional Health Concerns Infection Onset Date Last Indicated Resolved Time R/O C. diff 05/21/2020 05/21/2020 05/21/2020 1:01 PM ELECTRONICS ASSEMBLER AND TESTER R/O C. diff 10/31/2021 10/30/2021 10/31/2021 3:51 PM CDT R/O C. diff 09/01/2022 08/31/2022 09/01/2022 5:17 PM CDT documented as of this encounter Care Teams Yoke Presser Relationship Specialty Start Date End Date Porsha Garrido MD [address] [place] [address] PCP - General 03/04/09 documented as of this encounter
--- OUTSIDE RECORDS SUMMARY | 2025-01-06 16:58 | XMS_ITS | Encounter Summary ---
Author Organization [facility] Address [address] [place] [address] Care Team Providers Care Cattle Dipper Name Role Phone Porsha Garrido MD Primary Care Provider Encounter Details Date Type Department Care Team (Late st Contact Info) Description 10/27/2005 Outpatient Historical [facility] Pediatrics [place] [address] [facility] [place] [address] [place] [phone] Deshawn Kitchen MD NO ADDRESS ON FILE Social History Tobacco Use Types Packs/Day Years Used Date Smoking Tobacco: Never Assessed Comments Unknown Sex and Gender Information Value Date Recorded Sex Assigned at Not on file Legal Sex Female 3:08 AM PATTERNMAKER METAL Gender Identity Not on file Sexual Orientation Not on file documented as of this encounter Plan of Treatment Upcoming Encounters Date Type Department Care Team (Late st Contact Info) Description 06/25/2025 3:10 PM PATTERNMAKER METAL Office Visit [facility] Gastroenterology [address] [place] [address] Gary Burgess MD [id number] [place] [address] 08/08/2025 10:30 AM CDT Office Visit [facility] Neurology [address] [place] [address] Rama De La Paz MD [address] [facility] [address] [place] [address] documented as of this encounter Visit Diagnoses Not on filedocumented in this encounter Additional Health Concerns Infection Onset Date Last Indicated Resolved Time R/O C. diff 05/21/2020 05/21/2020 05/21/2020 1:01 PM PATTERNMAKER METAL R/O C. diff 10/31/2021 10/30/2021 10/31/2021 3:51 PM CDT R/O C. diff 09/01/2022 08/31/2022 09/01/2022 5:17 PM CDT documented as of this encounter Care Teams Cattle Dipper Relationship Specialty Start Date End Date Porsha Garrido MD [address] [place] [address] PCP - General 03/04/09 documented as of this encounter
--- OUTSIDE RECORDS SUMMARY | 2025-01-06 16:58 | XMS_ITS | Encounter Summary ---
Author Organization [facility] Address [address] [facility] [place] [address] Care Team Providers Care Gravity Prospector Name Role Phone Porsha Garrido MD Primary Care Provider Carina Rey MD Unavailable Unavailable Gary Burgess MD Unavailable [phone] Evelyn García RN Unavailable [phone] Porsha Garrido MD Unavailable [phone] Joselito Gold MD Unavailable [phone] Porsha Garrido MD Unavailable [phone] Joselito Gold MD Unavailable [phone] Jolie Marrero PA-C Unavailable [phone] Porsha Garrido MD Unavailable [phone] Porsha Garrido MD Unavailable [phone] Joselito Casarez MD Unavailable Unavailable Michelle Nogueira APRN-TELEPHONE OPERATOR RECEPTIONIST Unavailable [phone] Porsha Garrido MD Unavailable Paloma Romo Unavailable Marjorie Weston DO Unavailable Porsha Garrido MD Unavailable Porsha Garrido MD Unavailable [phone] Encounter Details Date Type Department Care Team (Late Contact Info) Description 10/11/2014 [facility] Outpatient Visit [facility] Orthopedics - Radiology [address] [place], [place] [id number] Meir Luo DO [address] [place] [address] Social History Tobacco Use Types Packs/Day Years Used Date Smoking Tobacco: Never Smokeless Tobacco: Never Alcohol Use Standard Drinks/Week Comments Yes 0 (1 standard drink = 0.6 oz pur e alcohol) occasionally Comments No Sex and Gender Information Value Date Recorded Sex Assigned at Not on file Legal Sex Female 12:18 PM METROLOGY ENGINEER Gender Identity Female 01/16/2019 9:49 AM CDT Sexual Orientation Not on file 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 on file Not on f ile documented as of this encounter Plan of Treatment Upcoming Encounters Date Type Department Care Team (Late st Contact Info) Description 03/04/2025 9:30 AM CDT Appointment [facility] Breast Care [address] [place] [address] [address] [place] [address] 03/04/2025 10:40 AM CDT Office Visit [facility] Breast Care - Surgery [address] [place] [phone] Nicky Sheridan, INSULATING MACHINE OPERATOR-TELEPHONE OPERATOR RECEPTIONIST [address] [facility] [address] [place] [phone] documented as of this encounter Visit Diagnoses Not on filedocumented in this encounter Additional Health Concerns Infection Onset Date Last Indicated Resolved Time COVID-19 Under Investigation 04/01/2020 04/01/2020 04/02/2020 2:40 PM METROLOGY ENGINEER COVID-19 Confirmed 04/01/2020 04/01/2020 0 4:34 AM METROLOGY ENGINEER documented as of this encounter Care Teams Gravity Prospector Relationship Specialty Start Date End Date Porsha Garrido MD [address] [place] [address] PCP - General 01/31/11 Porsha Garrido MD [address] [place] [address] PCP - Attributed-[employer] Commercial 09/13/18 11/01/19 Joselito Gold MD [address] [place] [address] PCP - Attributed-[employer] 07/15/19 08/14/19 Porsha Garrido MD [address] [place] [address] PCP - Attributed-[employer] 08/15/19 07/13/20 Jolie Marrero PA-C [address] [place] [phone] PCP - Attributed-[employer] 07/14/20 08/13/20 Porsha Garrido MD [address] [place] [address] PCP - Attributed-[employer] 08/14/20 12/29/21 Porsha Garrido MD [address] [place] [address] PCP - Attributed-[place] Commercial 05/16/22 08/31/22 Porsha Garrido MD [address] [place] [address] PCP - Attributed-[place] Commercial 11/13/22 07/31/24 Porsha Garrido MD [address] [place] [address] [place] [address] PCP - Attributed-[employer] 10/29/16 09/14/17 Porsha Garrido MD [address] [place] [address] PCP - Attributed-[employer] 07/14/24 Carina Rey MD [address] [place] [address] [place] [address] Obstetrics and Gynecology 10/27/11 07/14/20 Gary Burgess MD [address] [place] [address] [address] [place] [address] Gastroenterology 08/22/13 Evelyn García, RN Electrical Cad Designer 01/05/15 06/07/24 Joselito Gold MD [address] [place] [address] Obstetrics and Gynecology 07/15/20 5 Joselito Casarez MD [address] [place] [address] [place] [phone] Hematology and Oncology 09/03/22 05/26/23 Michelle Nogueira, INSULATING MACHINE OPERATOR-TELEPHONE OPERATOR RECEPTIONIST [address] [place] [address] [address] [place] [address] Nurse Practitioner Nurse Practitioner Adult Health 09/03/22 12/24/24 Paloma Romo Care Coordination Specialist Care Management 12/13/23 12/13/23 Marjorie Weston DO [address] [place] [address] Rheumatology 05/31/24 12/24/24 documented as of this encounter
--- OUTSIDE RECORDS SUMMARY | 2025-01-06 16:58 | XMS_ITS | Encounter Summary ---
Author Organization [facility] Address [address] [place] [address] Care Team Providers Care Laundry Routeman Name Role Phone Porsha Garrido MD Primary Care Provider Encounter Details Date Type Department Care Team (Late st Contact Info) Description 10/13/2005 Outpatient Historical [facility] Pediatrics [place] [address] [facility] [place] [address] [place] [address] Deshawn Kitchen MD NO ADDRESS ON FILE Social History Tobacco Use Types Packs/Day Years Used Date Smoking Tobacco: Never Assessed Comments Unknown Sex and Gender Information Value Date Recorded Sex Assigned at Not on file Legal Sex Female 3:08 AM GROUNDWATER CONSULTANT Gender Identity Not on file Sexual Orientation Not on file documented as of this encounter Plan of Treatment Upcoming Encounters Date Type Department Care Team (Late st Contact Info) Description 06/25/2025 3:10 PM GROUNDWATER CONSULTANT Office Visit [facility] Gastroenterology [address] [place] [address] Gary Burgess MD [id number] [place] [address] 08/08/2025 10:30 AM CDT Office Visit [facility] Neurology [address] [place] [address] Rama De La Paz MD [address] [facility] [address] [place] [address] documented as of this encounter Visit Diagnoses Not on filedocumented in this encounter Additional Health Concerns Infection Onset Date Last Indicated Resolved Time R/O C. diff 05/21/2020 05/21/2020 05/21/2020 1:01 PM GROUNDWATER CONSULTANT R/O C. diff 10/31/2021 10/30/2021 10/31/2021 3:51 PM CDT R/O C. diff 09/01/2022 08/31/2022 09/01/2022 5:17 PM CDT documented as of this encounter Care Teams Laundry Routeman Relationship Specialty Start Date End Date Porsha Garrido MD [address] [place] [address] PCP - General 03/04/09 documented as of this encounter
--- OUTSIDE RECORDS SUMMARY | 2025-01-06 16:58 | XMS_ITS | Encounter Summary ---
Author Organization [facility] Address [address] [place] [address] Care Team Providers Care Publications Sales Representative Name Role Phone Porsha Garrido MD Primary Care Provider Encounter Details Date Type Department Care Team (Late st Contact Info) Description 07/16/2005 Emergency [facility] Enrico Felix MD [address] [facility] [place] [address] Er, Authorized P NO ADDRESS ON FILE URIN TRACT INFECTION NOS (Primary Dx) Social History Tobacco Use Types Packs/Day Years Used Date Smoking Tobacco: Never Assessed Comments Unknown Sex and Gender Information Value Date Recorded Sex Assigned at Not on file Legal Sex Female 3:08 AM CLASSIFICATION COUNSELOR Gender Identity Not on file Sexual Orientation Not on file documented as of this encounter Plan of Treatment Upcoming Encounters Date Type Department Care Team (Late st Contact Info) Description 06/25/2025 3:10 PM CLASSIFICATION COUNSELOR Office Visit [facility] Gastroenterology [address] [place] [address] Gary Burgess MD [id number] [place] [address] 08/08/2025 10:30 AM CDT Office Visit [facility] Neurology [address] [place] [address] Rama De La Paz MD [address] [place] [address] documented as of this encounter Procedures Procedure Name Priority Date/Time Associated Diagnosis Comments URINALYSIS WITH MICROSCOPIC Routine 07/16/2005 1:15 PM CLASSIFICATION COUNSELOR HCG QUALITATIVE, URINE Routine 07/16/2005 1:15 PM CLASSIFICATION COUNSELOR CBC WITH DIFFERENTIAL Routine 07/16/2005 12:35 PM CLASSIFICATION COUNSELOR CBC WITH DIFFERENTIAL Routine 07/16/2005 12:35 PM CLASSIFICATION COUNSELOR documented in this encounter Results * HCG QUALITATIVE, URINE (07/16/2005 1:15 PM CLASSIFICATION COUNSELOR) HCG QUAL URINE Negative Negative INTER FACE SYSTEM SPECIFIC GRAVITY UA 1.030 1.001 - 1.035 INTERFACE SYSTEM 07/16/2005 1:15 PM CLASSIFICATION COUNSELOR Enrico Felix MD URINE ORDERABLES Final Result INTERFACE SYSTEM Refer to clinic/hospital department * (ABNORMAL) URINALYSIS WITH MICROSCOPIC (07/16/2005 1:15 PM CLASSIFICATION COUNSELOR) COLOR UA Yellow INTERFACE SYSTEM CLARITY UA [...] 5-10 /HPF INTERFACE SYSTEM 07/16/2005 1:15 PM CLASSIFICATION COUNSELOR [facility] Provider URINE ORDERABLES Final Resul t Performing Organization Address [facility] Phone Number INTERFACE SYSTEM Refer to clinic/hospital department * (ABNORMAL) CBC WITH DIFFERENTIAL (07/16/2005 12:35 PM CLASSIFICATION COUNSELOR) NEUTROPHILS 89(H) 45 - 70 % INTERFAC [...] K/uL INTERFACE SYSTEM 07/16/2005 12:3 5 PM CLASSIFICATION COUNSELOR Historical Provider HEMATOLOGY ORDERABLES Final Result Performing Organization Address [facility] Phone Number INTERFACE SYSTEM Refer to clinic/hospital department * (ABNORMAL) CBC WITH DIFFERENTIAL (07/16/2005 12:35 PM CLASSIFICATION COUNSELOR) WBC 7.8 4.0 - 9.8 K/uL INTERFACE [...] fL INTERFACE SYSTEM 07/16/2005 12:3 5 PM CLASSIFICATION COUNSELOR us Historical Provider HEMATOLOGY ORDERABLES Final Result INTERFACE SYSTEM Refer to clinic/hospital department documented in this encounter Visit Diagnoses Diagnosis Urinary tract infection, site not specified- Primary documented in this encounter Additional Health Concerns Infection Onset Date Last Indicated Resolved Time R/O C. diff 05/21/2020 05/21/2020 05/21/2020 1:01 PM CLASSIFICATION COUNSELOR R/O C. diff 10/31/2021 10/30/2021 10/31/2021 3:51 PM CDT R/O C. diff 09/01/2022 08/31/2022 09/01/2022 5:17 PM CDT documented as of this encounter Care Teams Publications Sales Representative Relationship Specialty Start Date End Date Porsha Garrido MD [address] [place] [address] PCP - General 03/04/09 documented as of this encounter
--- OUTSIDE RECORDS SUMMARY | 2025-01-06 16:58 | XMS_ITS | Clinical Summary ---
Author Organization [facility] Address [address] [place] [address] Care Team Providers Care Peanut Separator Name Role Phone Porsha Garrido MD Primary Care Provider [phone] Gary Burgess MD Unavailable [phone] Porsha Garrido MD Unavailable [phone] Source Comments [facility],non-owned Affiliates and Associated Physician Practices is amultiple site organization consisting of ambulatory clinics and hospital sitesin [place], [place], [place] and [place]. This disclosure is being madepursuant to the Care Everywhere program and may not contain all information available regarding this patient. Last updated 18.[facility] Allergies Active Allergy Reactions Criticality Noted Date Comments Doxycycline Urticaria,Itching Medium 05/07/2014 Sulfa Drugs Rash Medium 04/17/2010 Azithromycin Dihydrate Diarrhea High 09/17/2009 Medications * Be aware that medications may not be up to date on this document. Alwaysverify current medications with the patient. fluticasone propionate (FLONASE) 50 MCG/ACT nasal spray Sheldon 2 (two) sprays into the nose once daily Active pantoprazole EC (PROTONIX) 40 MG tablet Take 1 (one) tablet by mouth once daily 2 Active vedolizumab (Entyvio) injection 300 (three hundred) mg by Intravenous route once Every 8 weeks Active ALPRAZolam (Xanax) 0.5 MG tabletIndicatio ns:JOHN (generalized anxiety disorder) Take 1 (one) tablet by mouth 2 times daily as needed for Anxiety 60 tablet 5 5 Active cetirizine (ZyrTEC) 10 MG tablet Take 1 (one) tablet by mouth once daily Active valACYclovir (Valtrex) 500 MG tablet TAKE 1 TABLET BY MOUTH TWICE A DAY 180 tablet 1 5 Active escitalopram (Lexapro) 10 MG tablet Take 1 (one) tablet by mouth once daily 90 tablet 3 5 Active baclofen (Lioresal) 5 MG TABS Take 1 (one) tablet by mouth once daily as needed Active Active Problems Problem Noted Date Diagnosed [...] 06/2010 left sided colitis, 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) Closed fracture [...] Encounters Date Type Department Care Team Description 01/03/2025 Results Follow-Up [facility] Breast [facility] - Surgery [address] [place] [address] Nicky Sheridan, SAFETY DEPOSIT CLERK-COMPUTER HARDWARE TECHNICIAN 01/02/2025 12:44 PM CDT - 01/02/2025 11:59 PM CDT Hospital Encounter [facility] Imaging Services - MRI [address] [place] [address] Porsha Garrido MD Discharge Disposition: Home or Self Care 12/26/2024 Results Follow-Up [address] [address] Porsha Garrido MD 12/25/2024 4:00 PM CDT Office Visit [address] [address] Porsha Garrido MD Intermittent palpitations (Primary Dx); History of iron deficiency anemia 12/18/[address] [address] Porsha Garrido MD Palpitations 12/05/[address] [address] Porsha Garrido MD Refill Request 10/25/2024 Refill [facility] - [facility] [address] [place] [address] Daniel Matthews MD Refill Request 10/17/2024 8:15 AM CDT Video Visit [facility] - Family Medicine [address] [address] Porsha Garrido MD JOHN (generalized anxiety disorder) from Last 3 Months Immunizations Immunization Administration Dates Next Due INFLUENZA VACCINE, TRIV. (AF LURIA, FLUZONE TRIVALENT; 6MO+) (IIV3) 05/11/2002,03/20/2001 COVID MODERNA BIVALENT 12Y+ 50MCG/0.5ML 04/27/2022 Covid Moderna primary monova lent 12+ yr 0.5mL 04/03/2021,08/25/2020,07/28/2020 DPT 12/01/1992, 0,01/01/1988,10/13,1987 DTP 05/27/1989, 8,1987,08/14 DTaP VACCINE IM (6wk-6yrs) 12/01/1992 FLU VACCINE [...] Uterine Neg Hx Relation Name Status Comments Daughter Alive Father Alive Maternal Aunt Alive Maternal Grandfather Maternal Grandmother Maternal Uncle 1 Maternal Uncle 2 Alive Mother Alive Paternal Aunt 1 Paternal Aunt 2 Paternal Aunt 3 Alive Paternal Aunt 4 Alive Paternal Grandfather Paternal Grandmother Sister 1 Alive Sister 2 Half Alive Social History Tobacco Use Types Packs/Day [...] Date Recorded Patient Health Questionnaire-2 Score 0 12/25/2024 Hunger Vital Sign Answer Date Recorded Within [...] on file Legal Sex Female 12:18 PM SHOE DYER Gender Identity Female 01/16/2019 9:49 AM CDT Sexual Orientation Not on file 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[address] [place] Not on file Not on file Not on f ile Last Filed Vital Signs Vital Sign Reading Time Taken Comments Blood Pressure 106/70 12/25/2024 3:53 PM CDT Pulse 61 12/25/2024 3:53 PM CDT Temperature 36.4 C (97.5 F) 12/25/2024 3:53 PM CDT Respiratory Rate 13 10/05/2024 10:10 AM CDT Oxygen Saturation 99% 12/25/2024 3:53 PM CDT Inhaled Oxygen Concentration - - Weight 85.8 kg (189 lb 3.2 oz) 12/25/2024 3:53 P M CDT Height 172.7 cm (5' 8) 12/25/2024 3:53 PM CDT Body Mass Index 28.77 12/25/2024 3:53 PM CDT Plan of Treatment Upcoming Encounters Date Type Department Care Team (Late st Contact Info) Description 03/04/2025 9:30 AM CDT Appointment [facility] [address] [place] [address] [address] [place] [address] 03/04/2025 10:40 AM CDT Office Visit [facility] - Surgery [address] [place] [phone] Nicky Sheridan P, SAFETY DEPOSIT CLERK-COMPUTER HARDWARE TECHNICIAN [address] [facility] [address] [place] [phone] Health Maintenance Due Date Last Done Comments HPV VACCINE (1 - 3-dose SCDM series) 2014 COVID-19 VACCINE ( season) 2024 04/27/2022, 10/08/2021, 04/03/2021, Additional history exists INFLUENZA VACCINE (#1) 2025 , 02/14/2023, 02/06/2022, Additional history exists PAP with HPV 06/05/2025 06/05/2024, 05/16, 07/17/2020, Additional history exists DTAP/TDAP/TD VACCINES (10 - Td or Tdap) 02/14/2029 02/14/2019, 10/27/2011, 08/01/2002, Additional history exists ZOSTER VACCINE (1 of 2) 2037 HEPATITIS B VACCINE Completed 06/25/1998, 01/02/1998, 12/02/1997 MENINGOCOCCAL GROUPS A/C/Y/W VACCINE Completed 10/13/2005, 10/13/2005 HIV SCREENING Completed 09/25/2018, 06/2018, 04/28/2011 HEPATITIS C SCREENING Completed 06/11/2020 , 06/11/2020, 09/25/2018, Additional history exists DEPRESSION SCREENING Completed 05/29/2024, [...] Procedure Name Priority Date/Time Associated Diagnosis Comments MRI BREAST BILAT SCREENING WWO Routine 01/02/2025 1:46 PM CDT Increased risk of breast cancer Extremely dense tissue of both breasts on mammography Encounter for breast cancer screening other than mammogram TSH Routine 12/25/2024 4:34 PM CDT Intermittent palpitations CBC W AUTO DIFFERENTIAL Routine 12/25/2024 4:34 PM CDT History of iron deficiency anemia MAGNESIUM BLOOD Routine 12/25/2024 4:33 PM CDT Intermittent palpitations IRON + TIBC + FERRITIN Routine 12/25/2024 4:31 PM CDT History of iron deficiency anemia COMPREHENSIVE METABOLIC PANEL Routine 12/25/2024 4:31 PM CDT Intermittent palpitations PAP IG LB +HPV APTIMA REFLEX 16,18/45 Routine 06/05/2024 8:24 AM SHOE DYER Screening for cervical cancer HEPATITIS C AB [...] Recently Relevant to Health Maintenance Results * MRI Breast Bilat Screening Wwo (01/02/2025 1:46 PM CDT) Anatomical Region Laterality Modality Breast Bilateral Magnetic Resonan ce 01/03/2025 1:36 PM CDT Impressions 01/03/2025 1:47 PM CDT IMPRESSION: No MRI evidence of malignancy in either breast. BI-RADS Category 1: Negative Examination. Recommendation: Continue high risk screening regimen per breast specialist's protocol. The patient will be due for bilateral diagnostic mammography in February 2025. > Interpreting Provider: Stephanie Cedillo MD on 01/03/2025 1:47 PM Narrative 01/03/2025 1:47 PM CDT PROCEDURE: MRI BREAST BILAT SCREENING [facility] DATE/TIME OF EXAM: 01/02/2025 2:12 PM INDICATION: Z91.89: Other specified personal risk factors, not elsewhere classified R92.343: Mammographic extreme density, bilateral breasts Z12.39: Encounter for other screening for malignant neoplasm of breast. COMPARISON: Mammogram dated 03/01/2024. No prior breast MRIs are available for comparison. TECHNIQUE: Multiplanar multisequence MR imaging of both breasts before and following the administration of intravenous gadolinium contrast. Dynamic phase imaging was performed in the sagittal plane. Exam processed by technologist and interpreted by Radiologist on independent [employer] seismograph observer including 3-D volume rendering, subtraction image processing and contrast kinetic analysis. CONTRAST: GADOTERATE MEGLUMINE 0.5 MMOL/ML IV [facility] SO:16 mL FINDINGS: There is marked background breast parenchymal enhancement and extreme fibroglandular tissue. Right breast: No suspicious areas of enhancement are identified. There is no skin thickening or nipple retraction. No axillary lymphadenopathy is present. Left breast: No suspicious areas of enhancement are identified. There is no skin thickening or nipple retraction. No axillary lymphadenopathy is present. Nicky Sheridan SAFETY DEPOSIT CLERK-COMPUTER HARDWARE TECHNICIAN MR ORDERABLES Final Result * CBC WITH DIFFERENTIAL (12/25/2024 4:34 PM CDT) WBC 7.3 3.4 - 10.8 x10E3/uL [facility] INSURANCE BILL RBC 4.18 3.77 - 5.28 x10E6/uL [facility] INSURANCE BILL Hemoglobin 12.4 11.1 - 15.9 g/dL [facility] INSURANCE BILL Hematocrit 37.1 34.0 - 46.6 % [facility] INSURANCE BILL MCV 89 79 - 97 fL [facility] INSURANCE BILL MCH 29.7 26.6 - 33.0 pg [facility] INSURANCE BILL MCHC 33.4 31.5 - 35.7 g/dL [facility] INSURANCE BILL RDW 12.1 11.7 - 15.4 % [facility] INSURANCE BILL Platelet Count 395 150 - 450 x10E3/uL [facility] INSURANCE BILL Granulocytes % 56 Not Estab. % [facility] INSURANCE BILL Lymphocytes % 34 Not Estab. % [facility] INSURANCE BILL Monocytes % 5 Not Estab. % [facility] INSURANCE BILL Eosinophils % 4 Not Estab. % [facility] INSURANCE BILL Basophils % 1 Not Estab. % [facility] INSURANCE BILL Granulocytes Absolute 4.1 1.4 - 7.0 x10E3/uL [facility] INSURANCE BILL Lymphocytes Absolute 2.5 0.7 - 3.1 x10E3/uL [facility] INSURANCE BILL Monocytes Absolute 0.4 0.1 - 0.9 x10E3/uL [facility] INSURANCE BILL Eosinophils Absolute 0.3 0.0 - 0.4 x10E3/uL [facility] INSURANCE BILL Basophils Absolute 0.0 0.0 - 0.2 x10E3/uL [facility] INSURANCE BILL Immature Granulocytes 0 Not Estab. % [facility] INSURANCE BILL Immature Granulocytes Absolute 0.0 0.0 - 0.1 x10E3/uL [facility] INSURANCE BILL Blood BLOOD SPECIMEN / Unknown 12/25/2024 4:34 PM CDT 12/25/2024 Narrative [facility] INSURANCE BILL - 12/26/2024 6:09 AM CDT Performed at: [address] [place] [id number] Wildlife Control Agent: Arsenio Scott PhD, Phone: [phone] Porsha Garrido MD LAB - HEMATOLOGY ORDERABLES Final Result [facility] INSURANCE BILL [address] [place] [address] * TSH (12/25/2024 4:34 PM CDT) TSH 1.760 0.450 - 4.500 uIU/mL [facility] INSURANCE BILL Blood BLOOD SPECIMEN / Unknown 12/25/2024 4:34 PM CDT 12/25/2024 Narrative [facility] INSURANCE BILL - 12/26/2024 11:11 AM CDT Performed at: [address] [id number] Wildlife Control Agent: Arsenio Scott PhD, Phone: [phone] Porsha Garrido MD LAB - CHEMISTRY ORDERABLES F inal Result Performing Organization Address City/[facility]/ZIP Co de Phone Number [facility] INSURANCE BILL [address] [place] [address] * MAGNESIUM BLOOD (12/25/2024 4:33 PM CDT) Magnesium 1.9 1.6 - 2.3 mg/dL [facility] INSURANCE BILL Blood BLOOD SPECIMEN / Unknown 12/25/2024 4:33 PM CDT 12/25/2024 Narrative [facility] INSURANCE BILL - 12/26/2024 8:11 AM CDT Performed at: [address] [id number] Wildlife Control Agent: Arsenio Scott PhD, Phone: [phone] Porsha Garrido MD LAB - CHEMISTRY ORDERABLES F inal Result Performing Organization Address City/[facility]/ZIP Co de Phone Number [facility] INSURANCE BILL [address] [place] [address] * IRON + TIBC + FERRITIN (12/25/2024 4:31 PM CDT) TIBC 308 250 - 450 ug/dL [facility] INSURANCE BILL UIBC 244 131 - 425 ug/dL [facility] INSURANCE BILL Iron 64 27 - 159 ug/dL [facility] INSURANCE BILL Iron Saturation 21 15 - 55 % [facility] INSURANCE BILL Ferritin 39 15 - 150 ng/mL [facility] INSURANCE BILL Blood BLOOD SPECIMEN / Unknown 12/25/2024 4:31 PM CDT 12/25/2024 Narrative [facility] INSURANCE BILL - 12/26/2024 1:10 PM CDT Performed at: [address] [place] [id number] Wildlife Control Agent: Arsenio Scott PhD, Phone: [phone] Porsha Garrido MD LAB - CHEMISTRY ORDERABLES F inal Result Performing Organization Address [facility] Co de Phone Number [facility] INSURANCE BILL [address] [place] [address] * (ABNORMAL) COMPREHENSIVE METABOLIC PANEL (12/25/2024 4:31 PM CDT) Glucose 93 70 - 99 mg/dL [facility] INSURANCE BILL BUN 10 6 - 20 mg/dL [facility] INSURANCE BILL Creatinine 0.75 0.57 - 1.00 mg/dL [facility] INSURANCE BILL eGFR by CKD-EPI 105 >59 mL/min/1.7 3 [facility] INSURANCE BILL BUN/Creatinine Ratio 13 9 - 23 [facility] INSURANCE BILL Sodium 139 134 - 144 mmol/L [facility] INSURANCE BILL Potassium 3.8 3.5 - 5.2 mmol/L [facility] INSURANCE BILL Chloride 100 96 - 106 mmol/L [facility] INSURANCE BILL CO2 21 20 - 29 mmol/L [facility] INSURANCE BILL Calcium 9.9 8.7 - 10.2 mg/dL [facility] INSURANCE BILL Protein Total 7.8 6.0 - 8.5 g/dL [facility] INSURANCE BILL Albumin 5.1(H) 3.9 - 4.9 g/dL [facility] INSURANCE BILL Globulin Total 2.7 1.5 - 4.5 g/dL [facility] INSURANCE BILL Bilirubin Total 0.4 0.0 - 1.2 mg/dL [facility] INSURANCE BILL Alkaline Phosphatase 79 44 - 121 IU/L [facility] INSURANCE BILL AST 14 0 - 40 IU/L [facility] INSURANCE BILL ALT 13 0 - 32 IU/L [facility] INSURANCE BILL Blood BLOOD SPECIMEN / Unknown 12/25/2024 4:31 PM CDT 12/25/2024 Narrative [facility] INSURANCE BILL - 12/26/2024 9:10 AM CDT Performed at: [address] [place] [id number] Wildlife Control Agent: Arsenio Scott PhD, Phone: [phone] Porsha Garrido MD LAB - CHEMISTRY ORDERABLES F inal Result [facility] INSURANCE BILL [address] [place] [address] * PAP IG LB +HPV APTIMA REFLEX 16,18/45 (06/05/2024 8:24 AM SHOE DYER) Diagnosis Comment [facility] INSURANCE BILL Comment:NEGATIVE FOR [...] UTERINE CERVIX / Unknown 06/05/2024 8:24 AM SHOE DYER 06/05/2024 Comment:Cervix Release to pa t Narrative [facility] INSURANCE BILL - 06/07/2024 1:08 PM SHOE DYER Performed at: 01 - [address] [id number] Wildlife Control Agent: Sejal Ordoñez MD, Phone: [phone] Performed at: [address] - [address] [id number] Wildlife Control Agent: Sejal Ordoñez MD, Phone: [phone] Specimen Comment: [id number] Specimen Comment: No. of containers..01 ThinPrep Vial Karen Ngo APRN-COMPUTER HARDWARE TECHNICIAN LAB - PATHOLOGY/CYTOLOGY ORDERABLES Final Result Performing Organization Address [facility] de Phone Number [facility] INSURANCE BILL [address] [place] [address] * HEPATITIS C AB W RFLX VERIFICATION (09/25/2018 10:43 AM CDT) Hepatitis C Antibody <0.1 0.0 - 0.9 s/co ratio [facility] ACCOUNT BILL Comment:FASTING Blood BLOOD SPECIMEN / Unknown 09/25/2018 10:43 AM CDT 09/25/2018 Narrative Resulting Agency Comment Lab Testing performed at: [facility] [address] [facility] [id number] Lianne Welch MD LAB - CHEMISTRY ORDERABLES Iesha l Result Performing Organization Address City/[facility] Co de Phone Number [facility] ACCOUNT BILL [address] [place] [address] * HIV-1 HIV-2 ANTIBODY + HIV P24 AG PANEL (09/25/2018 10:43 AM CDT) HIV Screen 4th Generation w Reflex Non Reactive Non Reactive [facility] ACCOUNT BILL Comment:FASTING Blood BLOOD SPECIMEN / Unknown 09/25/2018 10:43 AM CDT 09/25/2018 Narrative Resulting Agency Comment Lab Testing performed at: [facility] [place] [id number] [facility] [id number] Lianne Welch MD LAB - CHEMISTRY ORDERABLES Iesha hernandez Result [facility] ACCOUNT BILL [address] [place] [address] from Last 3 Months or Most Recently Relevant to Health Maintenance Insurance [facility] Address: [facility] [id number] [place] [address] SELF PAY NO INSURANCE Member Subscriber Plan / Payer (Ef fective for All Dates) Name:Ally Arreaga Member ID:Not on file Relation to Subscriber:Not on file Name:ALLY ARREAGA Subscriber ID:Not on file (Home) Address: [address] [place] [address] Payer ID:Not on file Group ID:Not on file Type:Self Pay Address: [place], [place] [facility] [place] [address] Advance Directives * Full Code (Latest Code Status on File) Date Activated Date Inactivated Comments 01/05/2015 3:32 AM 01/07/2015 2:46 PM Care Teams Peanut Separator Relationship Specialty Start Date End Date Porsha Garrido MD [address] [place] [address] [place] [address] PCP - General 01/31/11 Porsha Garrido MD [address] [place] [address] [place] [address] PCP - Attributed-[employer] 07/14/24 Gary Burgess MD [address] [place] [address] [address] [place], [place] [id number] Gastroenterology 08/22/13
--- OUTSIDE RECORDS SUMMARY | 2025-01-06 16:58 | XMS_ITS | Encounter Summary ---
Author Organization Address [address] [place] [address] Care Team Providers Care Laundry Machine Mechanic Name Role Phone Porsha Garrido MD Primary Care Provider Encounter Details Date Type Department Care Team (Late st Contact Info) Description 06/25/1998 Outpatient Historical [facility] Pediatrics [place] [address] [facility] [place] [address] [place] [phone] Deshawn Kitchen MD NO ADDRESS ON FILE Social History Tobacco Use Types Packs/Day Years Used Date Smoking Tobacco: Never Assessed Comments Unknown Sex and Gender Information Value Date Recorded Sex Assigned at Not on file Legal Sex Female 3:08 AM PATTERN ASSEMBLER Gender Identity Not on file Sexual Orientation Not on file documented as of this encounter Plan of Treatment Upcoming Encounters Date Type Department Care Team (Late st Contact Info) Description 06/25/2025 3:10 PM PATTERN ASSEMBLER Office Visit [facility] Gastroenterology [address] [place] [address] Gary Burgess MD [id number] [place] [address] 08/08/2025 10:30 AM CDT Office Visit [facility] Neurology [address] [place] [address] Rama De La Paz MD [address] [facility] [address] [place] [address] documented as of this encounter Visit Diagnoses Not on filedocumented in this encounter Additional Health Concerns Infection Onset Date Last Indicated Resolved Time R/O C. diff 05/21/2020 05/21/2020 05/21/2020 1:01 PM PATTERN ASSEMBLER R/O C. diff 10/31/2021 10/30/2021 10/31/2021 3:51 PM CDT R/O C. diff 09/01/2022 08/31/2022 09/01/2022 5:17 PM CDT documented as of this encounter Care Teams Laundry Machine Mechanic Relationship Specialty Start Date End Date Porsha Garrido MD [address] [place] [address] PCP - General 03/04/09 documented as of this encounter
--- OUTSIDE RECORDS SUMMARY | 2025-01-06 16:58 | XMS_ITS | Encounter Summary ---
Author Organization [facility] Address [address] [place] [address] Care Team Providers Care Bobbin Winder Tender Name Role Phone Porsha Garrido MD Primary Care Provider [phone] Encounter Details Date Type Department Care Team (Late st Contact Info) Description 10/13/2005 Outpatient Historical [facility] Pediatrics [place] [address] [facility] [place] [address] [place] [phone] Deshawn Kitchen MD NO ADDRESS ON FILE Social History Tobacco Use Types Packs/Day Years Used Date Smoking Tobacco: Never Assessed Comments Unknown Sex and Gender Information Value Date Recorded Sex Assigned at Not on file Legal Sex Female 3:08 AM CHOIR LEADER Gender Identity Not on file Sexual Orientation Not on file documented as of this encounter Plan of Treatment Upcoming Encounters Date Type Department Care Team (Late st Contact Info) Description 06/25/2025 3:10 PM CHOIR LEADER Office Visit [facility] Gastroenterology [place] [address] [place] [address] Gary Burgess MD [id number] [place] [address] 08/08/2025 10:30 AM CDT Office Visit [facility] Neurology [address] [place] [address] Rama De La Paz MD [address] [facility] [address] [place] [address] documented as of this encounter Visit Diagnoses Not on filedocumented in this encounter Additional Health Concerns Infection Onset Date Last Indicated Resolved Time R/O C. diff 05/21/2020 05/21/2020 05/21/2020 1:01 PM CHOIR LEADER R/O C. diff 10/31/2021 10/30/2021 10/31/2021 3:51 PM CDT R/O C. diff 09/01/2022 08/31/2022 09/01/2022 5:17 PM CDT documented as of this encounter Care Teams Bobbin Winder Tender Relationship Specialty Start Date End Date Porsha Garrido MD [address] [place] [address] PCP - General 03/04/09 documented as of this encounter
--- OUTSIDE RECORDS SUMMARY | 2025-01-06 16:58 | XMS_ITS | Encounter Summary ---
Author Organization [facility] Address [address] [place] [address] Care Team Providers Care Rural Electrification Engineer Name Role Phone Porsha Garrido MD Primary Care Provider Encounter Details Date Type Department Care Team (Late st Contact Info) Description 11/17/2000 Outpatient Historical [facility] Pediatrics [place] [address] [facility] [place] [address] [place] [phone] Deshawn Kitchen MD NO ADDRESS ON FILE Social History Tobacco Use Types Packs/Day Years Used Date Smoking Tobacco: Never Assessed Comments Unknown Sex and Gender Information Value Date Recorded Sex Assigned at Not on file Legal Sex Female 3:08 AM TOWER WATCHMAN Gender Identity Not on file Sexual Orientation Not on file documented as of this encounter Plan of Treatment Upcoming Encounters Date Type Department Care Team (Late st Contact Info) Description 06/25/2025 3:10 PM TOWER WATCHMAN Office Visit [facility] Gastroenterology [place] [address] [place] [address] Gary Burgess MD [id number] [place] [address] 08/08/2025 10:30 AM CDT Office Visit [facility] Neurology [address] [place] [address] Rama De La Paz MD [address] [facility] [address] [place] [address] documented as of this encounter Visit Diagnoses Not on filedocumented in this encounter Additional Health Concerns Infection Onset Date Last Indicated Resolved Time R/O C. diff 05/21/2020 05/21/2020 05/21/2020 1:01 PM TOWER WATCHMAN R/O C. diff 10/31/2021 10/30/2021 10/31/2021 3:51 PM CDT R/O C. diff 09/01/2022 08/31/2022 09/01/2022 5:17 PM CDT documented as of this encounter Care Teams Rural Electrification Engineer Relationship Specialty Start Date End Date Porsha Garrido MD [address] [place] [address] PCP - General 03/04/09 documented as of this encounter
--- OUTSIDE RECORDS SUMMARY | 2025-01-06 16:58 | XMS_ITS | Encounter Summary ---
Author Organization [facility] Address [address] [place] [address] Care Team Providers Care Metrology Specialist Name Role Phone Porsha Garrido MD Primary Care Provider [phone] Carina Rey MD Unavailable Unavailable Gary Burgess MD Unavailable [phone] Evelyn García RN Unavailable [phone] Porsha Garrido MD Unavailable [phone] Joselito Gold MD Unavailable [phone] Porsha Garrido MD Unavailable [phone] Joselito Gold MD Unavailable [phone] Jolie Marrero PA-C Unavailable [phone] Porsha Garrido MD Unavailable [phone] Porsha Garrido MD Unavailable [phone] Joselito Casarez MD Unavailable Unavailable Michelle Noguiera APRN-MAIL RIDER Unavailable [phone] Porsha Garrido MD Unavailable [phone] Paloma Romo Unavailable Marjorie Weston DO Unavailable Porsha Garrido MD Unavailable [phone] Porsha Garrido MD Unavailable [phone] Encounter Details Date Type Department Care Team [...] on file Legal Sex Female 12:18 PM CORPORATE LICENSED BROKER Gender Identity Female 01/16/2019 9:49 AM CDT Sexual Orientation Not on file 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 [place] [address] 03/04/2025 10:40 AM CDT Office Visit [facility] Breast Care - Surgery [address] [place] [phone] Nicky Sheridan P, GLUING MACHINE OFFBEARER-MAIL RIDER [address] [facility] [address] [place] [address] documented as of this encounter Visit Diagnoses Not on filedocumented in this encounter Additional Health Concerns Infection Onset Date Last Indicated Resolved Time COVID-19 Under Investigation 04/01/2020 04/01/2020 04/02/2020 2:40 PM CORPORATE LICENSED BROKER COVID-19 Confirmed 04/01/2020 04/01/2020 0 4:34 AM CORPORATE LICENSED BROKER documented as of this encounter Care Teams Metrology Specialist Relationship Specialty Start Date End Date Porsha Garrido MD [address] [place] [address] PCP - General 01/31/11 Porsha Garrido MD [address] [place] [address] PCP - Attributed-[employer] Commercial 09/13/18 11/01/19 Joselito Gold MD [address] [place] [address] PCP - Attributed-[employer] 07/15/19 08/14/19 Porsha Garrido MD [address] [place] [address] PCP - Attributed-[employer] 08/15/19 07/13/20 Jolie Marrero PA-C [address] [place] [phone] PCP - Attributed-[employer] 07/14/20 08/13/20 Porsha Garrido MD [address] [place] [address] PCP - Attributed-[employer] 08/14/20 12/29/21 Porsha Garrido MD [address] [place] [address]15 PCP - Attributed-[employer] Commercial 05/16/22 08/31/22 Porsha Garrido MD [address] [place] [address] [place] [address] PCP - Attributed-[employer] Commercial 11/13/22 07/31/24 Porsha Garrido MD [address] [place] [address] [place] [address] PCP - Attributed-[employer] 10/29/16 09/14/17 Porsha Garrido MD [address] [place] [address] PCP - Attributed-[employer] 07/14/24 Carina Rey MD [address] [place] [address] Obstetrics and Gynecology 10/27/11 07/14/20 Gary Burgess MD [address] [place] [address] [place] [address] Gastroenterology 08/22/13 Evelyn García, RN Ux Visual Designer 01/05/15 06/07/24 Joselito Gold MD [address] [place] [address] Obstetrics and Gynecology 07/15/20 5 Joselito Casarez MD [address] [place] [phone] Hematology and Oncology 09/03/22 05/26/23 Michelle Nogueira APRN-MAIL RIDER [address] [place] [address] [address] [place] [address] Nurse Practitioner Nurse Practitioner Adult Health 09/03/22 12/24/24 Paloma Romo Care Coordination Specialist Care Management 12/13/23 12/13/23 Marjorie Weston DO [address] [phone] Rheumatology 05/31/24 12/24/24 documented as of this encounter
--- OUTSIDE RECORDS SUMMARY | 2025-01-06 16:58 | XMS_ITS | Encounter Summary ---
Author Organization [facility] Address [address] [place] [address] Care Team Providers Care Application Development Specialist Name Role Phone Porsha Garrido MD Primary Care Provider Encounter Details Date Type Department Care Team (Late st Contact Info) Description 08/07/2001 Outpatient Historical [facility] [place] [address] [facility] [place] [address] Deshawn Kitchen MD NO ADDRESS ON FILE Social History Tobacco Use Types Packs/Day Years Used Date Smoking Tobacco: Never Assessed Comments Unknown Sex and Gender Information Value Date Recorded Sex Assigned at Not on file Legal Sex Female 3:08 AM NET C DEVELOPER Gender Identity Not on file Sexual Orientation Not on file documented as of this encounter Plan of Treatment Upcoming Encounters Date Type Department Care Team (Late st Contact Info) Description 06/25/2025 3:10 PM NET C DEVELOPER Office Visit [facility] Gastroenterology [place] [address] [place] [address] Gary Burgess MD [address] [id number] [place] [address] 08/08/2025 10:30 AM CDT Office Visit [facility] Neurology [address] [place] [address] Rama De La Paz MD [address] [facility] [address] [place] [address] documented as of this encounter Visit Diagnoses Not on filedocumented in this encounter Additional Health Concerns Infection Onset Date Last Indicated Resolved Time R/O C. diff 05/21/2020 05/21/2020 05/21/2020 1:01 PM NET C DEVELOPER R/O C. diff 10/31/2021 10/30/2021 10/31/2021 3:51 PM CDT R/O C. diff 09/01/2022 08/31/2022 09/01/2022 5:17 PM CDT documented as of this encounter Care Teams Application Development Specialist Relationship Specialty Start Date End Date Porsha Garrido MD [address] [place] [address] PCP - General 03/04/09 documented as of this encounter
--- OUTSIDE RECORDS SUMMARY | 2025-01-06 16:58 | XMS_ITS | Encounter Summary ---
Author Organization [facility] Address [address] [place] [address] Care Team Providers Care General Sales Manager Name Role Phone Porsha Garrido MD Primary Care Provider Encounter Details Date Type Department Care Team (Late st Contact Info) Description 05/14/2000 Outpatient Historical [facility] Pediatrics [place] [address] [facility] [place] [address] [place] [phone] Deshawn Kitchen MD NO ADDRESS ON FILE Social History Tobacco Use Types Packs/Day Years Used Date Smoking Tobacco: Never Assessed Comments Unknown Sex and Gender Information Value Date Recorded Sex Assigned at Not on file Legal Sex Female 3:08 AM PLUGGER Gender Identity Not on file Sexual Orientation Not on file documented as of this encounter Plan of Treatment Upcoming Encounters Date Type Department Care Team (Late st Contact Info) Description 06/25/2025 3:10 PM PLUGGER Office Visit [facility] Gastroenterology [place] [address] [place] [address] Gary Burgess MD [address] [id number] [place] [address] 08/08/2025 10:30 AM CDT Office Visit [facility] Neurology [address] [place] [address] Rama De La Paz MD [address] [facility] [address] [place] [address] documented as of this encounter Visit Diagnoses Not on filedocumented in this encounter Additional Health Concerns Infection Onset Date Last Indicated Resolved Time R/O C. diff 05/21/2020 05/21/2020 05/21/2020 1:01 PM PLUGGER R/O C. diff 10/31/2021 10/30/2021 10/31/2021 3:51 PM CDT R/O C. diff 09/01/2022 08/31/2022 09/01/2022 5:17 PM CDT documented as of this encounter Care Teams General Sales Manager Relationship Specialty Start Date End Date Porsha Garrido MD [address] [place] [address] PCP - General 03/04/09 documented as of this encounter
--- OUTSIDE RECORDS SUMMARY | 2025-01-06 16:58 | XMS_ITS | Encounter Summary ---
Author Organization [facility] Address [address] [place] [address] Care Team Providers Care Insulation Engineman Name Role Phone Porsha Garrido MD Primary Care Provider Encounter Details Date Type Department Care Team (Late st Contact Info) Description 12/02/1997 Outpatient Historical [facility] Pediatric[place] [address] [facility] [place] [address] Deshawn Kitchen MD NO ADDRESS ON FILE Social History Tobacco Use Types Packs/Day Years Used Date Smoking Tobacco: Never Assessed Comments Unknown Sex and Gender Information Value Date Recorded Sex Assigned at Not on file Legal Sex Female 3:08 AM CONCRETE FORM SETTER AND FINISHER Gender Identity Not on file Sexual Orientation Not on file documented as of this encounter Plan of Treatment Upcoming Encounters Date Type Department Care Team (Late st Contact Info) Description 06/25/2025 3:10 PM CONCRETE FORM SETTER AND FINISHER Office Visit [facility] Gastroenterology [place] [address] [place] [address] Gary Burgess MD [id number] [place] [address] 08/08/2025 10:30 AM CDT Office Visit [facility] Neurology [address] [place] [address] Rama De La Paz MD [address] [facility] [address] [place] [address] documented as of this encounter Visit Diagnoses Not on filedocumented in this encounter Additional Health Concerns Infection Onset Date Last Indicated Resolved Time R/O C. diff 05/21/2020 05/21/2020 05/21/2020 1:01 PM CONCRETE FORM SETTER AND FINISHER R/O C. diff 10/31/2021 10/30/2021 10/31/2021 3:51 PM CDT R/O C. diff 09/01/2022 08/31/2022 09/01/2022 5:17 PM CDT documented as of this encounter Care Teams Insulation Engineman Relationship Specialty Start Date End Date Porsha Garrido MD [address] [place] [address] PCP - General 03/04/09 documented as of this encounter
--- OUTSIDE RECORDS SUMMARY | 2025-01-06 16:58 | XMS_ITS | Encounter Summary ---
Author Organization [facility] Address [address] [place] [address] Care Team Providers Care Dealer Compliance Representative Name Role Phone Porsha Garrido MD Primary Care Provider Encounter Details Date Type Department Care Team (Late st Contact Info) Description 06/23/1999 Outpatient Historical [facility] Pediatrics [place] [address] [facility] [place] [address] Deshawn Kitchen MD NO ADDRESS ON FILE Social History Tobacco Use Types Packs/Day Years Used Date Smoking Tobacco: Never Assessed Comments Unknown Sex and Gender Information Value Date Recorded Sex Assigned at Not on file Legal Sex Female 3:08 AM LINE OUT WORKER Gender Identity Not on file Sexual Orientation Not on file documented as of this encounter Plan of Treatment Upcoming Encounters Date Type Department Care Team (Late st Contact Info) Description 06/25/2025 3:10 PM LINE OUT WORKER Office Visit [facility] Gastroenterology [place] [address] [place] [address] Gary Burgess MD [address] [id number] [place] [address] 08/08/2025 10:30 AM CDT Office Visit [facility] Neurology [address] [place] [address] Rama De La Paz MD [address] [facility] [address] [place] [address] documented as of this encounter Visit Diagnoses Not on filedocumented in this encounter Additional Health Concerns Infection Onset Date Last Indicated Resolved Time R/O C. diff 05/21/2020 05/21/2020 05/21/2020 1:01 PM LINE OUT WORKER R/O C. diff 10/31/2021 10/30/2021 10/31/2021 3:51 PM CDT R/O C. diff 09/01/2022 08/31/2022 09/01/2022 5:17 PM CDT documented as of this encounter Care Teams Dealer Compliance Representative Relationship Specialty Start Date End Date Porsha Garrido MD [address] [place] [address] PCP - General 03/04/09 documented as of this encounter
--- OUTSIDE RECORDS SUMMARY | 2025-01-06 16:58 | XMS_ITS | Encounter Summary ---
Author Organization [facility] Address [address] [place] [address] Care Team Providers Care Science Specialist Name Role Phone Porsha Garrido MD Primary Care Provider [phone] Encounter Details Date Type Department Care Team (Late st Contact Info) Description 03/08/2002 Outpatient Historical [facility] Pediatrics [place] [address] [place] [address] Deshawn Kitchen MD NO ADDRESS ON FILE Social History Tobacco Use Types Packs/Day Years Used Date Smoking Tobacco: Never Assessed Comments Unknown Sex and Gender Information Value Date Recorded Sex Assigned at Not on file Legal Sex Female 3:08 AM CUFF SETTER LOCKSTITCH Gender Identity Not on file Sexual Orientation Not on file documented as of this encounter Plan of Treatment Upcoming Encounters Date Type Department Care Team (Late st Contact Info) Description 06/25/2025 3:10 PM CUFF SETTER LOCKSTITCH Office Visit [facility] Gastroenterology [place] [address] [place] [address] Gary Burgess MD [id number] [place] [address] 08/08/2025 10:30 AM CDT Office Visit [facility] Neurology [address] [place] [address] Rama De La Paz MD [address] [facility] [address] [place] [address] documented as of this encounter Visit Diagnoses Not on filedocumented in this encounter Additional Health Concerns Infection Onset Date Last Indicated Resolved Time R/O C. diff 05/21/2020 05/21/2020 05/21/2020 1:01 PM CUFF SETTER LOCKSTITCH R/O C. diff 10/31/2021 10/30/2021 10/31/2021 3:51 PM CDT R/O C. diff 09/01/2022 08/31/2022 09/01/2022 5:17 PM CDT documented as of this encounter Care Teams Science Specialist Relationship Specialty Start Date End Date Porsha Garrido MD [address] [place] [address] PCP - General 03/04/09 documented as of this encounter
--- OUTSIDE RECORDS SUMMARY | 2025-01-06 16:58 | XMS_ITS | Encounter Summary ---
Author Organization [facility] Address [address] [place] [address] Care Team Providers Care Information Officer Name Role Phone Porsha Garrido MD Primary Care Provider [phone] Encounter Details Date Type Department Care Team (Late st Contact Info) Description 04/01/2005 Outpatient Historical [facility] [place] [address] [place] [address] ABDOMINAL PAIN UNSPEC SITE (Primary Dx) Social History Tobacco Use Types Packs/Day Years Used Date Smoking Tobacco: Never Assessed Comments Unknown Sex and Gender Information Value Date Recorded Sex Assigned at Not on file Legal Sex Female 3:08 AM CELL PHONE REPAIR TECHNICIAN Gender Identity Not on file Sexual Orientation Not on file documented as of this encounter Plan of Treatment Upcoming Encounters Date Type Department Care Team (Late st Contact Info) Description 06/25/2025 3:10 PM CELL PHONE REPAIR TECHNICIAN Office Visit [facility] Gastroenterology [place] [address] [place] [address] Gary Burgess MD [id number] [place] [address] 08/08/2025 10:30 AM CDT Office Visit [facility] Neurology [address] [place] [address] Rama De La Paz MD [address] [facility] [address] [place] [address] documented as of this encounter Visit Diagnoses Diagnosis Abdominal pain, unspecified site- Primary documented in this encounter Additional Health Concerns Infection Onset Date Last Indicated Resolved Time R/O C. diff 05/21/2020 05/21/2020 05/21/2020 1:01 PM CELL PHONE REPAIR TECHNICIAN R/O C. diff 10/31/2021 10/30/2021 10/31/2021 3:51 PM CDT R/O C. diff 09/01/2022 08/31/2022 09/01/2022 5:17 PM CDT documented as of this encounter Care Teams Information Officer Relationship Specialty Start Date End Date Porsha Garrido MD [address] [place] [address] PCP - General 03/04/09 documented as of this encounter
--- OUTSIDE RECORDS SUMMARY | 2025-01-06 16:58 | XMS_ITS | Encounter Summary ---
Author Organization [facility] Address [address] [place] [address] Care Team Providers Care Alcohol Law Enforcement Agent Name Role Phone Porsha Garrido MD Primary Care Provider [phone] Encounter Details Date Type Department Care Team (Late st Contact Info) Description 01/22/2002 Outpatient Historical [facility] Pediatrics [place] [address] [facility] [place] [place] [address] Deshawn Kitchen MD NO ADDRESS ON FILE Social History Tobacco Use Types Packs/Day Years Used Date Smoking Tobacco: Never Assessed Comments Unknown Sex and Gender Information Value Date Recorded Sex Assigned at Not on file Legal Sex Female 3:08 AM TACK PULLER MACHINE Gender Identity Not on file Sexual Orientation Not on file documented as of this encounter Plan of Treatment Upcoming Encounters Date Type Department Care Team (Late st Contact Info) Description 06/25/2025 3:10 PM TACK PULLER MACHINE Office Visit [facility] Gastroenterology [place] [address] [place] [address] Gary Burgess MD [id number] [place] [address] 08/08/2025 10:30 AM CDT Office Visit [facility] Neurology [address] [place] [address] Rama De La Paz MD [address] [facility] [address] [place] [address] documented as of this encounter Visit Diagnoses Not on filedocumented in this encounter Additional Health Concerns Infection Onset Date Last Indicated Resolved Time R/O C. diff 05/21/2020 05/21/2020 05/21/2020 1:01 PM TACK PULLER MACHINE R/O C. diff 10/31/2021 10/30/2021 10/31/2021 3:51 PM CDT R/O C. diff 09/01/2022 08/31/2022 09/01/2022 5:17 PM CDT documented as of this encounter Care Teams Alcohol Law Enforcement Agent Relationship Specialty Start Date End Date Porsha Garrido MD [address] [place] [address] PCP - General 03/04/09 documented as of this encounter
--- OUTSIDE RECORDS SUMMARY | 2025-01-06 16:58 | XMS_ITS | Encounter Summary ---
Author Organization [facility] Address [address] [place] [address] Care Team Providers Care Tailing Hand Name Role Phone Porsha Garrido MD Primary Care Provider Encounter Details Date Type Department Care Team (Late st Contact Info) Description 01/26/2001 Outpatient Historical [facility] Pediatrics [place] [address] [facility] [place] [address] Ally Keller MD [address] [facility] [address] [place] [address] Social History Tobacco Use Types Packs/Day Years Used Date Smoking Tobacco: Never Assessed Comments Unknown Sex and Gender Information Value Date Recorded Sex Assigned at Not on file Legal Sex Female 3:08 AM ROTARY CUTTER FEEDER Gender Identity Not on file Sexual Orientation Not on file documented as of this encounter Plan of Treatment Upcoming Encounters Date Type Department Care Team (Late st Contact Info) Description 06/25/2025 3:10 PM ROTARY CUTTER FEEDER Office Visit [facility] Gastroenterology [place] [address] [place] [address] Gary Burgess MD [id number] [place] [address] 08/08/2025 10:30 AM CDT Office Visit [facility] Neurology [address] [facility] [address] [place] [address] Rama De La Paz MD [address] [facility] [address] [place] [address] documented as of this encounter Visit Diagnoses Not on filedocumented in this encounter Additional Health Concerns Infection Onset Date Last Indicated Resolved Time R/O C. diff 05/21/2020 05/21/2020 05/21/2020 1:01 PM ROTARY CUTTER FEEDER R/O C. diff 10/31/2021 10/30/2021 10/31/2021 3:51 PM CDT R/O C. diff 09/01/2022 08/31/2022 09/01/2022 5:17 PM CDT documented as of this encounter Care Teams Tailing Hand Relationship Specialty Start Date End Date Porsha Garrido MD [address] [place] [address] PCP - General 03/04/09 documented as of this encounter
--- OUTSIDE RECORDS SUMMARY | 2025-01-06 16:58 | XMS_ITS | Encounter Summary ---
Author Organization [facility] Address [address] [place] [address] Care Team Providers Care Lockmaker Name Role Phone Porsha Garrido MD Primary Care Provider [phone] Encounter Details Date Type Department Care Team (Late st Contact Info) Description 12/26/[address] [facility] [place] [facility] Pediatrics [place] [address] [facility] [address] Brayan Solitario MD [address] [place] [address] Social History Tobacco Use Types Packs/Day Years Used Date Smoking Tobacco: Never Assessed Comments Unknown Sex and Gender Information Value Date Recorded Sex Assigned at Not on file Legal Sex Female 3:08 AM COLLEGE RECRUITER Gender Identity Not on file Sexual Orientation Not on file documented as of this encounter Plan of Treatment Upcoming Encounters Date Type Department Care Team (Late st Contact Info) Description 06/25/2025 3:10 PM COLLEGE RECRUITER Office Visit [facility] Gastroenterology [place] [address] [place] [address] Gary Burgess MD [address] [id number] [place] [address] 08/08/2025 10:30 AM CDT Office Visit [facility] Neurology [address] [address] [place] [address] Rama De La Paz MD [address] [facility] [address] [place] [address] documented as of this encounter Visit Diagnoses Not on filedocumented in this encounter Additional Health Concerns Infection Onset Date Last Indicated Resolved Time R/O C. diff 05/21/2020 05/21/2020 05/21/2020 1:01 PM COLLEGE RECRUITER R/O C. diff 10/31/2021 10/30/2021 10/31/2021 3:51 PM CDT R/O C. diff 09/01/2022 08/31/2022 09/01/2022 5:17 PM CDT documented as of this encounter Care Teams Lockmaker Relationship Specialty Start Date End Date Porsha Garrido MD [address] [place] [address] PCP - General 03/04/09 documented as of this encounter
--- OUTSIDE RECORDS SUMMARY | 2025-01-06 16:58 | XMS_ITS | Encounter Summary ---
Author Organization [facility] Address [address] [facility] [place] [address] Care Team Providers Care Business Insight And Analytics Manager Name Role Phone Porsha Garrido MD Primary Care Provider [phone] Carina Rey MD Unavailable Unavailable Gary Burgess MD Unavailable [phone] Evelyn García RN Unavailable [phone] Porsha Garrido MD Unavailable [phone] Joselito Gold MD Unavailable [phone] Porsha Garrido MD Unavailable [phone] Joselito Gold MD Unavailable [phone] Jolie Marrero PA-C Unavailable [phone] Porsha Garirdo MD Unavailable [phone] Porsha Garrido MD Unavailable [phone] Joselito Casarez MD Unavailable Unavailable Michelle Nogueira APRN-TOWER TECHNICIAN Unavailable [phone] Porsha Garrido MD Unavailable [phone] Demetrius Paloma Unavailable Marjorie Weston DO Unavailable Porsha Garrido MD Unavailable [phone] Porsha Garrido MD Unavailable [phone] Encounter Details Date Type Department Care Team (Late st Contact Info) Description 08/26/2016 [facility] Outpatient Visit [facility] REH[facility] [address] [place] [address] Document, Scanned Social History Tobacco Use Types Packs/Day Years Used Date Smoking Tobacco: Never Smokeless Tobacco: Never Alcohol Use Standard Drinks/Week Comments No 0 (1 standard drink = 0.6 oz pur e alcohol) Comments No Sex and Gender Information Value Date Recorded Sex Assigned at Not on file Legal Sex Female 12:18 PM MAMMOGRAPHY SUPERVISOR Gender Identity Female 01/16/2019 9:49 AM [...] 01/06/2015 12:02 PM UNAT Kristen Garcia RN * Is person blind or have serious difficulty seeing? Answer Date of Assessment Author No 01/06/2015 12:02 PM UNAT Kristen Garcia RN * Does person have serious difficulty walking/climbing stairs? Answer Date of Assessment Author No 01/06/2015 12:02 PM UNAT Kristen Garcia RN * Does person have difficulty dressing/bathing? Answer Date of Assessment Author No 01/06/2015 12:02 PM UNAT Kristen Garcia RN * Does person have difficulty doing errands alone? Answer Date of Assessment Author No 01/06/2015 12:02 PM Kristen Fuchs RN documented as of this encounter Mental Status * Does person have difficulty concentrating/remembering/making decisions? Answer Entry Date Author No 01/06/2015 12:02 PM Kristen Fuchs RN documented in this encounter Plan of Treatment Upcoming Encounters Date Type Department Care Team (Late st Contact Info) Description 03/04/2025 9:30 AM CDT Appointment [facility] Breast Care [address] [facility] [address] [place] [address] 03/04/2025 10:40 AM CDT Office Visit [facility] Breast Care - Surgery [address] [place] [address] Nicky Sheridan, VAN HELPER-TOWER TECHNICIAN [address] [facility] [address] [place] [address] documented as of this encounter Visit Diagnoses Not on filedocumented in this encounter Additional Health Concerns Infection Onset Date Last Indicated Resolved Time COVID-19 Under Investigation 04/01/2020 04/01/2020 04/02/2020 2:40 PM MAMMOGRAPHY SUPERVISOR COVID-19 Confirmed 04/01/2020 04/01/2020 0 4:34 AM MAMMOGRAPHY SUPERVISOR documented as of this encounter Care Teams Business Insight And Analytics Manager Relationship Specialty Start Date End Date Porsha Garrido MD [address] [place] [id number] PCP - General 01/31/11 Porsha Garrido MD [address] [place] [address] PCP - Attributed-C Commercial 09/13/18 11/01/19 Joselito Gold MD [address] [place] [address] PCP - Attributed-C[employer]a 07/15/19 08/14/19 Porsha Garrido MD [address] [place] [address] PCP - Attributed-Cigna 08/15/19 07/13/20 Jolie Marrero PA-C [address] [place] [address] [place] [phone] PCP - Attributed-Cigna 07/14/20 08/13/20 Porsha Garrido MD [address] [place] [address] PCP - Attributed-C[employer]a 08/14/20 12/29/21 Porsha Garrido MD [address] [place] [address] PCP - Attributed-[place] Commercial 05/16/22 08/31/22 Porsha Garrido MD [address] [place] [address] PCP - Attributed-[place] Commercial 11/13/22 07/31/24 Porsha Garrido MD [address] [place] [address] PCP - Attributed-Exclusive Choice 10/29/16 09/14/17 Porsha Garrido MD [address] [place] [address] PCP - Attributed-Cigna 07/14/24 Carina Rey MD [address] [place] [address] Obstetrics and Gynecology 10/27/11 07/14/20 Gary Burgess MD [address] [place] [address] Gastroenterology 08/22/13 Evelyn García, RN Lan Support Specialist 01/05/15 06/07/24 Joselito Gold MD [address] [place], [place] [phone] Obstetrics and Gynecology 07/15/20 5 Joselito Casarez MD [facility] [facility] [address] [place] [address] Hematology and Oncology 09/03/22 05/26/23 Michelle Nogueira, VAN HELPER-TOWER TECHNICIAN [address] [facility] [address] [place], [place] [id number] Nurse Practitioner Nurse Practitioner Adult Health 09/03/22 12/24/24 Paloma Romo Care Coordination Specialist Care Management 12/13/23 12/13/23 Marjorie Weston DO [facility] [facility] [address] [place] [phone] Rheumatology 05/31/24 12/24/24 documented as of this encounter
--- OUTSIDE RECORDS SUMMARY | 2025-01-06 16:58 | XMS_ITS | Encounter Summary ---
Author Organization [facility] Address [address] [place] [address] Care Team Providers Care Bulk Coolers Installer Name Role Phone Porsha Garrido MD Primary Care Provider [phone] Gary Burgess MD Unavailable [phone] Porsha Garrido MD Unavailable [phone] Encounter Details Date Type Department Care Team (Late st Contact Info) Description 01/03/2025 Results Follow-Up [facility] Breast Care - Surgery [address] [place] [address] Nicky Sheridan, INVOICE CODER-DINING CHAIR SEAT CUSHION TRIMMER [address] [facility] [address] [place] [address] Social History Tobacco Use Types Packs/Day Years [...] you are drinking? 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 on file Not [...] Description 03/04/2025 9:30 AM CDT Appointment [facility] Breast [address] [place] [address] 03/04/2025 10:40 AM CDT Office Visit [facility] Breast Care - Surgery [address] [place] [address] Nicky Sheridan, INVOICE CODER-DINING CHAIR SEAT CUSHION TRIMMER [address] [facility] [address] [place] [address] documented as of this encounter Visit Diagnoses Not on filedocumented in this encounter Care Teams Bulk Coolers Installer Relationship Specialty Start Date End Date Porsha Garrido MD [address] [place] [address] [address] [place] [address] PCP - General 01/31/11 Porsha Garrido MD [address] [place] [address] [address] [place] [address] PCP - Attributed-Cigna 07/14/24 Gary Burgess MD [address] [facility] [address] [place] [address] Gastroenterology 08/22/13 documented as of this encounter
--- OUTSIDE RECORDS SUMMARY | 2025-01-06 16:58 | XMS_ITS | Encounter Summary ---
Author Organization [facility] Address [address] [place] [address] Care Team Providers Care Fruit Harvest Machine Operator Name Role Phone Porsha Garrido MD Primary Care Provider Encounter Details Date Type Department Care Team (Late st Contact Info) Description 12/27/2001 Outpatient Historical [facility] Pediatrics [place] [address] [facility] [place] [address] [place] [address] Deshawn Kitchen MD NO ADDRESS ON FILE Social History Tobacco Use Types Packs/Day Years Used Date Smoking Tobacco: Never Assessed Comments Unknown Sex and Gender Information Value Date Recorded Sex Assigned at Not on file Legal Sex Female 3:08 AM NURSE LEADER Gender Identity Not on file Sexual Orientation Not on file documented as of this encounter Plan of Treatment Upcoming Encounters Date Type Department Care Team (Late st Contact Info) Description 06/25/2025 3:10 PM NURSE LEADER Office Visit [facility] Gastroenterology [place] [address] [place] [address] Gary Burgess MD [id number] [place] [address] 08/08/2025 10:30 AM CDT Office Visit [facility] Neurology [address] [place] [address] Rama De La Paz MD [address] [facility] [address] [place] [address] documented as of this encounter Visit Diagnoses Not on filedocumented in this encounter Additional Health Concerns Infection Onset Date Last Indicated Resolved Time R/O C. diff 05/21/2020 05/21/2020 05/21/2020 1:01 PM NURSE LEADER R/O C. diff 10/31/2021 10/30/2021 10/31/2021 3:51 PM CDT R/O C. diff 09/01/2022 08/31/2022 09/01/2022 5:17 PM CDT documented as of this encounter Care Teams Fruit Harvest Machine Operator Relationship Specialty Start Date End Date Porsha Garrido MD [address] [place] [address] PCP - General 03/04/09 documented as of this encounter
--- OUTSIDE RECORDS SUMMARY | 2025-01-06 16:58 | XMS_ITS | Clinical Summary ---
Author Organization [facility] Address [address] [place] [address] Care Team Providers Care Air Traffic Control Specialist Center Name Role Phone Unavailable Primary Care Provider Unavailabl e Allergies Active Allergy Reactions Criticality Noted Date Comments Azithromycin Diarrhea,Unknown High 09/17/2009 Doxycycline Hives,Itching,Rash Medium 05/07/2014 Sulfa (Sulfonamide Antibiotics) Rash Medium 07/2009 Medications cetirizine (ZyrTEC) 10 mg tablet Take 1 tablet by mouth 1 (one) time each day. Active inFLIXimab (REMICADE) 100 mg injection 1 Active ALPRAZolam (XANAX) 0.25 mg tablet Take 0.25 mg by mouth 3 (three) times a day if needed. 0 Active azaTHIOprine (IMURAN) 50 mg tablet Take 50 mg by mouth 1 (one) time each day. 0 Active cetirizine (ZyrTEC) 10 mg tablet Active escitalopram (LEXAPRO) 10 mg tablet Take 10 mg by mouth 1 (one) time each day. 1 Active etonogestrel-elut ing contraceptive device (Nexplanon) 68 mg implant Inject under the skin. Active fluticasone propionate (FLONASE) 50 mcg/actuation nasal spray Administer 2 sprays into affected nostril(s) 1 (one) time each day. Active inFLIXimab (Remicade) 100 mg injection Active valACYclovir (VALTREX) 500 mg tablet Take 1 tablet by mouth 2 (two) times a day. 1 Active valACYclovir (VALTREX) 500 mg tablet Take 500 mg by mouth 1 (one) time each day. Active predniSONE (DELTASONE) 10 mg tablet Take 10 mg by mouth 1 (one) time each day. 1 Active pantoprazole (PROTONIX) 40 mg EC tablet TAKE 1 TABLET DAILY (NEED APPOINTMENT FOR FUTURE REFILLS OR 90 DAY SUPPLY) 0 Active albuterol HFA (PROVENTIL HFA;VENTOLIN HFA) 90 mcg/actuation inhaler Inhale 2 puffs every 6 (six) hours if needed. 2 Active hydrocortisone (CORTENEMA) 100 mg/60 mL enema Insert 100 mg into the rectum. 2 Active tirzepatide (Mounjaro) 2.5 mg/0.5 mL pen injector Inject 2.5 mg under the skin per week. 2 Active vedolizumab (Entyvio) 300 mg injection Every 8 weeks 2 Active baclofen 5 mg tablet Take 5 mg by mouth every 12 (twelve) hours if needed. 2 Active baclofen 5 mg tablet Take 1 [...] ONE TIME AFTER 2 HOURS IF NEEDED. 2 Active budesonide-formot Candice (SYMBICORT) 160-4.5 mcg/actuation inhaler INHALE 2 PUFFS TWICE A DAY. RINSE MOUTH AFTER USE. Active fluconazole (DIFLUCAN) 150 mg tablet TAKE 1 TABLET BY MOUTH ONCE FOR 1 DOSE 3 Active meclizine (ANTIVERT) 25 mg tablet Take 25 mg by mouth 3 (three) times a day if needed. 4 Active Ryaltris 665-25 mcg/spray spray,non-aerosol 4 Active prednisoLONE acetate (PRED FORTE) 1 % ophthalmic suspension SHAKE BOTTLE WELL AND INSTILL 1 DROP IN BOTH EYES TWICE A DAY FOR 7 DAYS, THEN ONCE DAILY FOR 7 DAYS 4 Active moxifloxacin (VIGAMOX) 0.5 % ophthalmic solution INSTILL 1 (ONE) DROP INTO LEFT EYE 3 TIMES DAILY FOR 7 DAYS 3 Active vedolizumab (Entyvio) 300 mg injection mg, 0 4 Active valACYclovir (VALTREX) 500 mg tablet Take 500 mg by mouth in the morning and at bedtime. 4 Active fluticasone propionate (Flonase Allergy Relief) 50 mcg/actuation nasal spray mcg, 0 4 Active vedolizumab 300 mg in sodium chloride 250 mL IVPB Infuse into a venous catheter. Active DULoxetine (CYMBALTA) [address] capsule Take 60 mg by mouth 1 (one) time each day. 5 Active HYDROcodone-aceta minophen (NORCO) 5-325 mg tablet Take 1 tablet by mouth every 6 (six) hours if needed for pain. 5 Active ketorolac (TORADOL) 10 mg tablet TAKE 1 TABLET BY MOUTH EVERY 6 HOURS FOR 4 DAYS 5 Active ondansetron ODT (ZOFRAN-ODT) 4 mg dispersible tablet DISSOLVE 1 TABLET ON THE TONGUE EVERY 8 HOURS NEEDED FOR NAUSEA OR VOMITING 5 Active oxyCODONE-acetami nophen (PERCOCET) 5-325 mg tablet TAKE 1/2 TO 1 TABLET BY MOUTH EVERY 4 HOURS NEEDED FOR PAIN 5 Active albuterol 0.63 mg/3 mL nebulizer solution Inhale 0.63 mg. Acti ve ALPRAZolam (XANAX) 0.5 mg tablet Take 0.5 mg by mouth 2 (two) times a day if needed. 5 Active Active Problems Problem Noted Date Diagnosed Date Anxiety 10/24/2024 History of headache 10/24/2024 GERD (gastroesophageal reflux disease) 5 Fibromyalgia 05/29/2024 ILYA positive 03/14/2024 Migraine with [...] without mention of complication 1992 Asthma 12/26/1989 Encounters Date Type Department Care Team Description 10/24/2024 9:15 AM CDT Office Visit [facility] [address] [facility] [place] [address] Anahi Leigh, DDS Dental caries, unspecified (Primary Dx); Encounter for dental examination and cleaning without abnormal findings from Last 3 Months Immunizations Immunization Administration Dates Next Due DTP 05/27/1989, 8,1987,08/14 DTaP 12/01/1992, 3,05/27/1989,12/31,1987,1987 Hep B, adolescent or pediatric 06/25/1998,1997,12/02/1997 IPV 05/16/2000,12/01/1992 Influenza, injectable, MDCK, preservative free, quadrivalent 02/27/2018 Influenza, injectable, quadr ivalent, preservative free 02/14/2023,02/06/2022,02/01/2020,02/14 Influenza, split virus, trivalent, PF 02/25/2024 Influenza, split virus, triv alent, preservative 03/09/2021,05/11/2002,03/20/2001 Influenza, unspecified 03/03/2016,2014,02/13/2013,02/08 MMR 12/01/1992,12/31/1988 Meningococcal MCV4O 10/13/2005 OPV 10/14/2011, 0,01/01/1988,10/13,1987 PPD Test 10/27/2005,10/13/2005 Rotavirus, monovalent 08/28/1992,04/14/1989 Td, adult, 2 Lf tetanus toxo id, preservative free, adsorbed 08/01/2002 Tdap 02/14/2019,10/27/2011 Social History Tobacco Use Types Packs/Day Years [...] st Contact Info) Description 04/25/2025 8:00 AM PROGRAM PROJECT MANAGER Office Visit [facility] [address] [place] [address] Anahi Leigh, DDS [address] [place] [address] Health Maintenance Due Date Last Done Comments Dental X-Ray: Full Mouth 12/18/2022 12/18/2019, 06/16 Dental X-Ray: Panoramic 12/18/2022 12/18/2019, 06/25 Dental X-Ray: Bitewings 01/19/2024 07/18/2023 Dental Oral Exam 04/26/2025 10/24/2024, , 07/18/2023, Additional history exists Dental Prophylaxis 04/26/2025 10/24/2024, 0 01/30/2024, 07/18/2023, Additional history exists Procedures Procedure Name Priority Date/Time Associated Diagnosis [...] FLUORIDE VARNISH Routine 10/24/2024 9:15 AM CDT PANORAMIC RADIOGRAPHIC IMAGE Routine 06/25/2019 2:00 AM PROGRAM PROJECT MANAGER INTRAORAL - COMPREHENSIVE SERIES OF RADIOGRAPHIC IMAGES Routine 06/25/2019 2:00 AM PROGRAM PROJECT MANAGER from Last 3 Months or Most Recently Relevant to Health Maintenance Insurance [employer] [place] PPO
--- OUTSIDE RECORDS SUMMARY | 2025-01-06 16:58 | XMS_ITS | Encounter Summary ---
Author Organization [facility] Address [address] [place] [address] Care Team Providers Care Miller Supervisor Name Role Phone Porsha Garrido MD Primary Care Provider [phone] Gary Burgess MD Unavailable [phone] Porsha Garrido MD Unavailable [phone] Encounter Details Date Type Department Care Team (Late st Contact Info) Description 12/26/2024 Results Follow-Up [facility] - Family Medicine [address] [place] [address] Porsha Garrido MD [address] [place] [address] Social History Tobacco Use Types Packs/Day Years [...] on file Legal Sex Female 12:18 PM PEST CONTROL SERVICE SALES AGENT Gender Identity Female 01/16/2019 9:49 AM CDT Sexual Orientation Not on file 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 on file Not [...] Info) Description 03/04/2025 9:30 AM CDT Appointment [facility] Breast Care [address] [place] [address] [address] [place] [address] 03/04/2025 10:40 AM CDT Office Visit [facility] Breast Care - Surgery [address] [place] [address] Nicky Sheridan, AUTOPSY PATHOLOGIST-DEVELOPMENT COORDINATOR [address] [facility] [address] [place] [address] documented as of this encounter Visit Diagnoses Not on filedocumented in this encounter Care Teams Miller Supervisor Relationship Specialty Start Date End Date Porsha Garrido MD [address] [place] [address] [address] [place] [address] PCP - General 01/31/11 Porsha Garrido MD [address] [place] [address] [address] [place] [address] PCP - Attributed-Cigna 07/14/24 Gary Burgess MD [address] [facility] [address] [place], [place] [phone] Gastroenterology 08/22/13 documented as of this encounter
--- OUTSIDE RECORDS SUMMARY | 2025-01-06 16:58 | XMS_ITS | Encounter Summary ---
Author Organization [facility] Address [address] [place] [address] Care Team Providers Care Survey Party Chief Name Role Phone Porsha Garrido MD Primary Care Provider Encounter Details Date Type Department Care Team (Late st Contact Info) Description 12/09/1999 Outpatient Historical [facility] Pediatrics [place] [address] [facility] [place] [address] [place] [address] Ally Keller MD [address] [facility] [address] [place] [address] Social History Tobacco Use Types Packs/Day Years Used Date Smoking Tobacco: Never Assessed Comments Unknown Sex and Gender Information Value Date Recorded Sex Assigned at Not on file Legal Sex Female 3:08 AM PROPULSION GENERATOR REPAIRER Gender Identity Not on file Sexual Orientation Not on file documented as of this encounter Plan of Treatment Upcoming Encounters Date Type Department Care Team (Late st Contact Info) Description 06/25/2025 3:10 PM PROPULSION GENERATOR REPAIRER Office Visit [facility] Gastroenterology [place] [address] [place] [address] Gary Burgess MD [id number] [place] [address] 08/08/2025 10:30 AM CDT Office Visit [facility] Neurology [address] [facility] [address] [place] [address] Rama De La Paz MD [address] [facility] [address] [place] [address] documented as of this encounter Visit Diagnoses Not on filedocumented in this encounter Additional Health Concerns Infection Onset Date Last Indicated Resolved Time R/O C. diff 05/21/2020 05/21/2020 05/21/2020 1:01 PM PROPULSION GENERATOR REPAIRER R/O C. diff 10/31/2021 10/30/2021 10/31/2021 3:51 PM CDT R/O C. diff 09/01/2022 08/31/2022 09/01/2022 5:17 PM CDT documented as of this encounter Care Teams Survey Party Chief Relationship Specialty Start Date End Date Porsha Garrido MD [address] [place] [address] PCP - General 03/04/09 documented as of this encounter
--- OUTSIDE RECORDS SUMMARY | 2025-01-06 16:58 | XMS_ITS | Encounter Summary ---
Author Organization [facility] Address [address] [facility] [place] [address] Care Team Providers Care Residential Property Manager Name Role Phone Porsha Garrido MD Primary Care Provider Carina Rey MD Unavailable Unavailable Gary Burgess MD Unavailable [phone] Angelic García RN Unavailable [phone] Porsha Garrido MD Unavailable [phone] Joselito Gold MD Unavailable [phone] Porsha Garrido MD Unavailable [phone] Joselito Gold MD Unavailable [phone] Jolie Marrero PA-C Unavailable [phone] Porsha Garrido MD Unavailable [phone] Porsha Garrido MD Unavailable [phone] Joselito Casarez MD Unavailable Unavailable Michelle Nogueira APRN-CUPOLA HOIST OPERATOR Unavailable [phone] Porsha Garrido MD Unavailable Paloma Romo Unavailable Marjorie Weston DO Unavailable Porsha Garrido MD Unavailable Porsha Garrido MD Unavailable Encounter Details Date Type Department Care Team (Late Contact Info) Description 10/28/2014 Therapy Visit [facility] [address] [place] [address] Meir Luo DO [address] [place] [phone] Social History Tobacco Use Types Packs/Day Years Used Date Smoking Tobacco: Never Smokeless Tobacco: Never Alcohol Use Standard Drinks/Week Comments Yes 0 (1 standard drink = 0.6 oz pur e alcohol) occasionally Comments No Sex and Gender Information Value Date Recorded Sex Assigned at Not on file Legal Sex Female 12:18 PM TRUST MANAGER ASSISTANT Gender Identity Female 01/16/2019 9:49 AM CDT Sexual Orientation Not on file 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 [place] [address] 03/04/2025 10:40 AM CDT Office Visit [facility] Health Breast Care - Surgery [address] [place] [address] Nicky Sheridan, UX LEAD-CUPOLA HOIST OPERATOR [address] [facility] [address] [place] [address] documented as of this encounter Visit Diagnoses Not on filedocumented in this encounter Additional Health Concerns Infection Onset Date Last Indicated Resolved Time COVID-19 Under Investigation 04/01/2020 04/01/2020 04/02/2020 2:40 PM TRUST MANAGER ASSISTANT COVID-19 Confirmed 04/01/2020 04/01/202004/11/202 0 4:34 AM TRUST MANAGER ASSISTANT documented as of this encounter Care Teams Residential Property Manager Relationship Specialty Start Date End Date Porsha Garrido MD [address] [place] [address] PCP - General 01/31/11 Porsha Garrido MD [address] [place] [address] PCP - Attributed-[employer] Commercial 09/13/18 11/01/19 Joselito Gold MD [address] [place] [address] PCP - Attributed-[employer] 07/15/19 08/14/19 Porsha Garrido MD [address] [place] [address] PCP - Attributed-[employer] 08/15/19 07/13/20 Jolie Marrero PA-C [address] [place] [phone] PCP - Attributed-[employer] 07/14/20 08/13/20 Porsha Garrido MD [address] [place] [address] PCP - Attributed-[employer] 08/14/20 12/29/21 Porsha Garrido MD [address] [place] [address] PCP - Attributed-[place] Commercial 05/16/22 08/31/22 Porsha Garrido MD [address] [place] [address] [place] [address] PCP - Attributed-[place] Commercial 11/13/22 07/31/24 Porsha Garrido MD [address] [place] [address] PCP - Attributed-[employer] 10/29/16 09/14/17 Porsha Garrido MD [address] [place] [address] PCP - Attributed-[employer] 07/14/24 Carina Rey MD [address] [place] [address] [place] [address] Obstetrics and Gynecology 10/27/11 07/14/20 Gary Burgess MD [address] [place] [address] [address] [place] [address] Gastroenterology 08/22/13 Angelic García, RN Straight Pin Making Machine Operator 01/05/15 06/07/24 Joselito Gold MD [address] [place] [address] Obstetrics and Gynecology 07/15/20 5 Joselito Casarez MD [address] [place] [address] [place] [phone] Hematology and Oncology 09/03/22 05/26/23 Michelle Nogueira, UX LEAD-CUPOLA HOIST OPERATOR [address] [place] [address] [address] [place] [address] Nurse Practitioner Nurse Practitioner Adult Health 09/03/22 12/24/24 Paloma Romo Care Coordination Specialist Care Management 12/13/23 12/13/23 Marjorie Weston DO [address] [phone] Rheumatology 05/31/24 12/24/24 documented as of this encounter
--- OUTSIDE RECORDS SUMMARY | 2025-01-06 16:58 | XMS_ITS | Encounter Summary ---
Author Organization [facility] Address [address] [place] [address] Care Team Providers Care Electrician Machine Shop Name Role Phone Porsha Garrido MD Primary Care Provider Encounter Details Date Type Department Care Team (Late st Contact Info) Description 04/18/2000 Outpatient Historical [facility] Pediatrics [place] [address] [facility] [place] [address] Deshawn Kitchen MD NO ADDRESS ON FILE Social History Tobacco Use Types Packs/Day Years Used Date Smoking Tobacco: Never Assessed Comments Unknown Sex and Gender Information Value Date Recorded Sex Assigned at Not on file Legal Sex Female 3:08 AM ELECTRIC DRILL OPERATOR Gender Identity Not on file Sexual Orientation Not on file documented as of this encounter Plan of Treatment Upcoming Encounters Date Type Department Care Team (Late st Contact Info) Description 06/25/2025 3:10 PM ELECTRIC DRILL OPERATOR Office Visit [facility] Gastroenterology [address] [place] [address] Gary Burgess MD [address] [id number] [place] [address] 08/08/2025 10:30 AM CDT Office Visit [facility] Neurology [address] [place] [address] Rama De La Paz MD [address] [facility] [address] [place] [address] documented as of this encounter Visit Diagnoses Not on filedocumented in this encounter Additional Health Concerns Infection Onset Date Last Indicated Resolved Time R/O C. diff 05/21/2020 05/21/2020 05/21/2020 1:01 PM ELECTRIC DRILL OPERATOR R/O C. diff 10/31/2021 10/30/2021 10/31/2021 3:51 PM CDT R/O C. diff 09/01/2022 08/31/2022 09/01/2022 5:17 PM CDT documented as of this encounter Care Teams Electrician Machine Shop Relationship Specialty Start Date End Date Porsha Garrido MD [address] [place] [address] PCP - General 03/04/09 documented as of this encounter
--- OUTSIDE RECORDS SUMMARY | 2025-01-06 16:58 | XMS_ITS | Encounter Summary ---
Author Organization [facility] Address [address] [place] [address] Care Team Providers Care Commercial Floor Covering Installer Name Role Phone Porsha Garrido MD Primary Care Provider Encounter Details Date Type Department Care Team (Late st Contact Info) Description 07/16/2002 Outpatient Historical [facility] Pediatrics [place] [address] [facility] [place] [address] Deshawn Kitchen MD NO ADDRESS ON FILE Social History Tobacco Use Types Packs/Day Years Used Date Smoking Tobacco: Never Assessed Comments Unknown Sex and Gender Information Value Date Recorded Sex Assigned at Not on file Legal Sex Female 3:08 AM SLIP MAKER Gender Identity Not on file Sexual Orientation Not on file documented as of this encounter Plan of Treatment Upcoming Encounters Date Type Department Care Team (Late st Contact Info) Description 06/25/2025 3:10 PM SLIP MAKER Office Visit [facility] Gastroenterology [address] [place] [address] Gary Burgess MD [address] [id number] [place] [address] 08/08/2025 10:30 AM CDT Office Visit [facility] Neurology [address] [place] [address] Rama De La Paz MD [address] [facility] [address] [place] [address] documented as of this encounter Visit Diagnoses Not on filedocumented in this encounter Additional Health Concerns Infection Onset Date Last Indicated Resolved Time R/O C. diff 05/21/2020 05/21/2020 05/21/2020 1:01 PM SLIP MAKER R/O C. diff 10/31/2021 10/30/2021 10/31/2021 3:51 PM CDT R/O C. diff 09/01/2022 08/31/2022 09/01/2022 5:17 PM CDT documented as of this encounter Care Teams Commercial Floor Covering Installer Relationship Specialty Start Date End Date Porsha Garrido MD [address] [place] [address] PCP - General 03/04/09 documented as of this encounter
--- OUTSIDE RECORDS SUMMARY | 2025-01-06 16:58 | XMS_ITS | Encounter Summary ---
Author Organization [facility] Address [address] [place] [address] Care Team Providers Care Heading Maker Name Role Phone Porsha Garrido MD Primary Care Provider Encounter Details Date Type Department Care Team (Late st Contact Info) Description 12/12/2003 Outpatient Historical [facility] Pediatrics [facility] [place] [address] [facility] [place] [address] Deshawn Kitchen MD NO ADDRESS ON FILE Social History Tobacco Use Types Packs/Day Years Used Date Smoking Tobacco: Never Assessed Comments Unknown Sex and Gender Information Value Date Recorded Sex Assigned at Not on file Legal Sex Female 3:08 AM INSIDE PLANT SUPERVISOR Gender Identity Not on file Sexual Orientation Not on file documented as of this encounter Last Filed Vital Signs Vital Sign Reading Time Taken Comments Blood Pressure - - Pulse - - Temperature - - Respiratory Rate - - Oxygen Saturation - - Inhaled Oxygen Concentration - - Weight 48.5 kg (107 lb) 12/12/2003 9:13 AM CDT Height 168.9 cm (5' 6.5) 12/12/2003 9:13 AM CDT Body Mass Index 17.01 12/12/2003 9:13 AM CDT Body Mass Index Percentile 5.15% 12/12/2003 9:1 3 AM CDT Growth Chart: CDC (Girls, 2- 20 Years) documented in this encounter Plan of Treatment Upcoming Encounters Date Type Department Care Team (Late st Contact Info) Description 06/25/2025 3:10 PM INSIDE PLANT SUPERVISOR Office Visit [facility] Gastroenterology [address] [place] [address] Gary Burgess MD [address] [id number] [place] [address] 08/08/2025 10:30 AM CDT Office Visit [facility] Neurology [facility] [address] [place] [address] Rama De La Paz MD [address] [place] [address] documented as of this encounter Visit Diagnoses Not on filedocumented in this encounter Additional Health Concerns Infection Onset Date Last Indicated Resolved Time R/O C. diff 05/21/2020 05/21/2020 05/21/2020 1:01 PM INSIDE PLANT SUPERVISOR R/O C. diff 10/31/2021 10/30/2021 10/31/2021 3:51 PM CDT R/O C. diff 09/01/2022 08/31/2022 09/01/2022 5:17 PM CDT documented as of this encounter Care Teams Heading Maker Relationship Specialty Start Date End Date Porsha Garrido MD [address] [place] [address] [address] [place] [address] PCP - General 03/04/09 documented as of this encounter
--- OUTSIDE RECORDS SUMMARY | 2025-01-06 16:58 | XMS_ITS | Encounter Summary ---
Author Organization [facility] Address [address] [place] [address] Care Team Providers Care Store Leader Name Role Phone Porsha Garrido MD Primary Care Provider Carina Rey MD Unavailable Unavailable Gary Burgess MD Unavailable [phone] Evelyn García RN Unavailable [phone] Porsha Garrido MD Unavailable [phone] Joselito Gold MD Unavailable [phone] Jolie Marrero PA-C Unavailable [phone] Porsha Garrido MD Unavailable [phone] Porsha Garrido MD Unavailable [phone] Joselito Casarez MD Unavailable Unavailable Michelle Nogueira BINDER ROLLER-BRAZING FURNACE FEEDER Unavailable [phone] Porsha Garrido MD Unavailable [phone] Paloma Romo Unavailable [phone] Marjorie Weston DO Unavailable Porsha Garrido MD Unavailable Reason for Visit * Reason Onset Date Comments MEDICATION REFILL 12/05/2019 Encounter Details Date Type Department Care Team (Late st Contact Info) Description 12/05/2019 Refill [facility] Medical [facility] - Family Medicine [address] [facility] [address] [place] [address] Porsha Garrido MD [address] [facility] [address] [place] [address] MEDICATION REFILL Social History Tobacco Use Types Packs/Day Years Used Date Smoking Tobacco: Never Smokeless Tobacco: Never Alcohol Use Standard Drinks/Week Comments Yes 0 (1 standard drink = 0.6 oz pur e alcohol) occasional Comments No Sex and Gender Information Value Date Recorded Sex Assigned at Not on file Legal Sex Female 12:18 PM FOLDING RULES PRINTING MACHINE OPERATOR Gender Identity Female 01/16/2019 9:49 AM CDT Sexual Orientation Not on file 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 [place] [address] 03/04/2025 10:40 AM CDT Office Visit [facility] Breast Care - Surgery [address] [place] [address] Nicky Sheridan, BINDER ROLLER-BRAZING FURNACE FEEDER [address] [facility] [address] [place] [phone] documented as of this encounter Visit Diagnoses Diagnosis JOHN (generalized anxiety disorder) Generalized anxiety disorder documented in this encounter Additional Health Concerns Infection Onset Date Last Indicated Resolved Time COVID-19 Under Investigation 04/01/2020 04/01/2020 04/02/2020 2:40 PM FOLDING RULES PRINTING MACHINE OPERATOR COVID-19 Confirmed 04/01/2020 04/01/2020 0 4:34 AM FOLDING RULES PRINTING MACHINE OPERATOR documented as of this encounter Care Teams Store Leader Relationship Specialty Start Date End Date Porsha Garrido MD [address] [place] [address] PCP - General 01/31/11 Porsha Garrido MD [address] [place] [address] PCP - Attributed-[employer] 08/15/19 07/13/20 Jolie Marrero PA-C [address] [place] [address] [place] [phone] PCP - Attributed-[employer] 07/14/20 08/13/20 Porsha Garrido MD [address] [place] [address] PCP - Attributed-[employer] 08/14/20 12/29/21 Porsha Garrido MD [address] [place] [address] PCP - Attributed-[facility] Commercial 05/16/22 08/31/22 Porsha Garrido MD [address] [place] [address] PCP - Attributed-[facility] Commercial 11/13/22 07/31/24 Porsha Garrido MD [address] [place] [address] PCP - Attributed-[employer] 07/14/24 Carina Rey MD [address] [place] [address] [place] [address] Obstetrics and Gynecology 10/27/11 07/14/20 Gary Burgess MD [address] [place] [address] Gastroenterology 08/22/13 Evelyn García RN Equipment Worker 01/05/15 06/07/24 Joselito Gold MD [address] [place] [address] Obstetrics and Gynecology 07/15/20 5 Joselito Casarez MD [address] [facility] [address] [place] [address] Hematology and Oncology 09/03/22 05/26/23 Michelle Nogueira APRN-BRAZING FURNACE FEEDER [address] [facility] [address] [place], [place] [phone] Nurse Practitioner Nurse Practitioner Adult Health 09/03/22 12/24/24 Paloma Romo Care Coordination Specialist Care Management 12/13/23 12/13/23 Marjorie Weston DO [address] [facility] [address] [place] [phone] Rheumatology 05/31/24 12/24/24 documented as of this encounter
--- OUTSIDE RECORDS SUMMARY | 2025-01-06 16:58 | XMS_ITS | Encounter Summary ---
Author Organization [facility] Address [address] [place] [address] Care Team Providers Care Machine Splitter Name Role Phone Porsha Garrido MD Primary Care Provider [phone] Encounter Details Date Type Department Care Team (Late st Contact Info) Description 10/23/2001 Outpatient Historical [facility] Pediatrics [place] [address] [facility] [place] [address] Deshawn Kitchen MD NO ADDRESS ON FILE Social History Tobacco Use Types Packs/Day Years Used Date Smoking Tobacco: Never Assessed Comments Unknown Sex and Gender Information Value Date Recorded Sex Assigned at Not on file Legal Sex Female 3:08 AM QUALITY ANALYST Gender Identity Not on file Sexual Orientation Not on file documented as of this encounter Plan of Treatment Upcoming Encounters Date Type Department Care Team (Late st Contact Info) Description 06/25/2025 3:10 PM QUALITY ANALYST Office Visit [facility] Gastroenterology [address] [place] [address] Gary Burgess MD [id number] [place] [address] 08/08/2025 10:30 AM CDT Office Visit [facility] Neurology [address] [place] [address] Rama De La Paz MD [address] [facility] [address] [place] [address] documented as of this encounter Visit Diagnoses Not on filedocumented in this encounter Additional Health Concerns Infection Onset Date Last Indicated Resolved Time R/O C. diff 05/21/2020 05/21/2020 05/21/2020 1:01 PM QUALITY ANALYST R/O C. diff 10/31/2021 10/30/2021 10/31/2021 3:51 PM CDT R/O C. diff 09/01/2022 08/31/2022 09/01/2022 5:17 PM CDT documented as of this encounter Care Teams Machine Splitter Relationship Specialty Start Date End Date Porsha Garrido MD [address] [place] [address] PCP - General 03/04/09 documented as of this encounter
--- OUTSIDE RECORDS SUMMARY | 2025-01-06 16:58 | XMS_ITS | Encounter Summary ---
Author Organization [facility] Address [address] [place] [address] Care Team Providers Care Lead Warehouse Associate Name Role Phone Porsha Garrido MD Primary Care Provider Encounter Details Date Type Department Care Team (Late st Contact Info) Description 02/16/1999 Outpatient Historical [facility] Pediatrics [place] [address] [facility] [place] [address] Deshawn Kitchen MD NO ADDRESS ON FILE Social History Tobacco Use Types Packs/Day Years Used Date Smoking Tobacco: Never Assessed Comments Unknown Sex and Gender Information Value Date Recorded Sex Assigned at Not on file Legal Sex Female 3:08 AM CIRCULATION CREW LEADER Gender Identity Not on file Sexual Orientation Not on file documented as of this encounter Plan of Treatment Upcoming Encounters Date Type Department Care Team (Late st Contact Info) Description 06/25/2025 3:10 PM CIRCULATION CREW LEADER Office Visit [facility] Gastroenterology [place] [address] [place] [address] Gary Burgess MD [address] [id number] [place] [address] 08/08/2025 10:30 AM CDT Office Visit [facility] Neurology [address] [place] [address] Rama De La Paz MD [address] [facility] [address] [place] [address] documented as of this encounter Visit Diagnoses Not on filedocumented in this encounter Additional Health Concerns Infection Onset Date Last Indicated Resolved Time R/O C. diff 05/21/2020 05/21/2020 05/21/2020 1:01 PM CIRCULATION CREW LEADER R/O C. diff 10/31/2021 10/30/2021 10/31/2021 3:51 PM CDT R/O C. diff 09/01/2022 08/31/2022 09/01/2022 5:17 PM CDT documented as of this encounter Care Teams Lead Warehouse Associate Relationship Specialty Start Date End Date Porsha Garrido MD [address] [place] [address] PCP - General 03/04/09 documented as of this encounter
--- OUTSIDE RECORDS SUMMARY | 2025-01-06 16:58 | XMS_ITS | Encounter Summary ---
Author Organization [facility] Address [address] [place] [address] Care Team Providers Care Car Customizer Name Role Phone Porsha Garrido MD Primary Care Provider Encounter Details Date Type Department Care Team (Late st Contact Info) Description 12/10/2003 Outpatient Historical [facility] Pediatrics [place] [address] [facility] [place] [address] Eduardo Mason MD NO ADDRESS ON FILE Social History Tobacco Use Types Packs/Day Years Used Date Smoking Tobacco: Never Assessed Comments Unknown Sex and Gender Information Value Date Recorded Sex Assigned at Not on file Legal Sex Female 3:08 AM POLICE LIEUTENANT Gender Identity Not on file Sexual Orientation Not on file documented as of this encounter Plan of Treatment Upcoming Encounters Date Type Department Care Team (Late st Contact Info) Description 06/25/2025 3:10 PM POLICE LIEUTENANT Office Visit [facility] Gastroenterology [address] [place] [address] Gary Burgess MD [address] [id number] [place] [address] 08/08/2025 10:30 AM CDT Office Visit [facility] Neurology [address] [place] [address] Rama De La Paz MD [address] [facility] [address] [place] [address] documented as of this encounter Visit Diagnoses Not on filedocumented in this encounter Additional Health Concerns Infection Onset Date Last Indicated Resolved Time R/O C. diff 05/21/2020 05/21/2020 05/21/2020 1:01 PM POLICE LIEUTENANT R/O C. diff 10/31/2021 10/30/2021 10/31/2021 3:51 PM CDT R/O C. diff 09/01/2022 08/31/2022 09/01/2022 5:17 PM CDT documented as of this encounter Care Teams Car Customizer Relationship Specialty Start Date End Date Porsha Garrido MD [address] [place] [address] [address] [place] [address] PCP - General 03/04/09 documented as of this encounter
--- OUTSIDE RECORDS SUMMARY | 2025-01-06 16:58 | XMS_ITS | Encounter Summary ---
Author Organization [facility] Address [address] [place] [address] Care Team Providers Care Security Operations Analyst Name Role Phone Porsha Garrido MD Primary Care Provider [phone] Encounter Details Date Type Department Care Team (Late st Contact Info) Description 11/23/[address] [facility] Pediatrics [place] [address] [facility] [place] [address] [place] [address] Deshawn Kitchen MD NO ADDRESS ON FILE Social History Tobacco Use Types Packs/Day Years Used Date Smoking Tobacco: Never Assessed Comments Unknown Sex and Gender Information Value Date Recorded Sex Assigned at Not on file Legal Sex Female 3:08 AM LIEUTENANT GENERAL Gender Identity Not on file Sexual Orientation Not on file documented as of this encounter Plan of Treatment Upcoming Encounters Date Type Department Care Team (Late st Contact Info) Description 06/25/2025 3:10 PM LIEUTENANT GENERAL Office Visit [facility] Gastroenterology [place] [address] [place] [address] Gary Burgess MD [address] [id number] [place] [address] 08/08/2025 10:30 AM CDT Office Visit [facility] Neurology [address] [place] [address] Rama De La Paz MD [address] [facility] [address] [place] [address] documented as of this encounter Visit Diagnoses Not on filedocumented in this encounter Additional Health Concerns Infection Onset Date Last Indicated Resolved Time R/O C. diff 05/21/2020 05/21/2020 05/21/2020 1:01 PM LIEUTENANT GENERAL R/O C. diff 10/31/2021 10/30/2021 10/31/2021 3:51 PM CDT R/O C. diff 09/01/2022 08/31/2022 09/01/2022 5:17 PM CDT documented as of this encounter Care Teams Security Operations Analyst Relationship Specialty Start Date End Date Porsha Garrido MD [address] [place] [address] PCP - General 03/04/09 documented as of this encounter
--- OUTSIDE RECORDS SUMMARY | 2025-01-06 16:58 | XMS_ITS | Encounter Summary ---
Author Organization [facility] Address [address] [place] [address] Care Team Providers Care Polish Compounder Name Role Phone Porsha Garrido MD Primary Care Provider [phone] Carina Rey MD Unavailable Unavailable Gary Burgess MD Unavailable [phone] Evelyn García RN Unavailable [phone] Porsha Garrido MD Unavailable [phone] Joselito Gold MD Unavailable [phone] Porsha Garrido MD Unavailable [phone] Joselito Gold MD Unavailable [phone] Jolie Marrero PA-C Unavailable [phone] Porsha Garrido MD Unavailable [phone] Porsha Garrido MD Unavailable [phone] Joselito Casarez MD Unavailable Unavailable Michelle Nogueira APRN-FIELD SEISMOLOGIST Unavailable [phone] Porsha Garrido MD Unavailable [phone] Paloma Romo Unavailable Marjorie Weston DO Unavailable Porsha Garrido MD Unavailable [phone] Porsha Garrido MD Unavailable [phone] Encounter Details Date Type Department Care Team (Late st Contact Info) Description 10/05/2012 [facility] Outpatient Visit [facility] REHAB [address] [place] [address] Unknown, Provider Social History Tobacco Use Types Packs/Day Years Used Date Smoking Tobacco: Never Smokeless Tobacco: Never Alcohol Use Standard Drinks/Week Comments Yes 0 (1 standard drink = 0.6 oz pur e alcohol) occasionally Comments No Sex and Gender Information Value Date Recorded Sex Assigned at Not on file Legal Sex Female 12:18 PM CHASSIS DRIVER Gender Identity Female 01/16/2019 9:49 AM CDT Sexual Orientation Not on file 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 Not on file Not on f ile documented as of this encounter Plan of Treatment Upcoming Encounters Date Type Department Care Team (Late st Contact Info) Description 03/04/2025 9:30 AM CDT Appointment [facility] Health Breast Care [address] [place] [address] [address] [place] [address] 03/04/2025 10:40 AM CDT Office Visit [facility] Breast Care - Surgery [address] [place] [address] Nicky Sheridan P, CRYSTAL INSPECTOR-FIELD SEISMOLOGIST [address] [facility] [address] [place] [address] documented as of this encounter Visit Diagnoses Not on filedocumented in this encounter Additional Health Concerns Infection Onset Date Last Indicated Resolved Time COVID-19 Under Investigation 04/01/2020 04/01/2020 04/02/2020 2:40 PM CHASSIS DRIVER COVID-19 Confirmed 04/01/2020 04/01/2020 0 4:34 AM CHASSIS DRIVER documented as of this encounter Care Teams Polish Compounder Relationship Specialty Start Date End Date Porsha Garrido MD [address] [place] [address] PCP - General 01/31/11 Porsha Garrido MD [address] [place] [address] PCP - Attributed-[employer] Commercial 09/13/18 11/01/19 Joselito Gold MD [address] [place] [address] PCP - Attributed-[employer] 07/15/19 08/14/19 Porsha Garrido MD [address] [place] [address] PCP - Attributed-[employer] 08/15/19 07/13/20 Jolie Marrero PA-C [address] [place] [phone] PCP - Attributed-[employer] 07/14/20 08/13/20 Porsha Garrido MD [address] [place] [address] PCP - Attributed-[employer] 08/14/20 12/29/21 Porsha Garrido MD [address] [place] [address] PCP - Attributed-[place] Commercial 05/16/22 08/31/22 Porsha Garrido MD [address] [place] [address] [address] [place] [address] PCP - Attributed-[place] Commercial 11/13/22 07/31/24 Porsha Garrido MD [address] [place] [address] [place] [address] PCP - Attributed-[employer] 10/29/16 09/14/17 Porsha Garrido MD [address] [place] [address] [address] [place] [address] PCP - Attributed-[employer] 07/14/24 Carina Rey MD [address] [place] [address] [place] [address] Obstetrics and Gynecology 10/27/11 07/14/20 Gary Burgess MD [address] [place] [address] [address] [place] [address] Gastroenterology 08/22/13 Evelyn García RN Business Solutions Consultant 01/05/15 06/07/24 Joselito Gold MD [address] [place] [address] Obstetrics and Gynecology 07/15/20 5 Joselito Casarez MD [address] [place] [address] [place] [phone] Hematology and Oncology 09/03/22 05/26/23 Michelle Nogueira APRN-FIELD SEISMOLOGIST [address] [place] [address] [address] [place] [address] Nurse Practitioner Nurse Practitioner Adult Health 09/03/22 12/24/24 Paloma Romo Care Coordination Specialist Care Management 12/13/23 12/13/23 Marjorie Weston DO [address] [address] Rheumatology 05/31/24 12/24/24 documented as of this encounter
--- OUTSIDE RECORDS SUMMARY | 2025-01-06 16:58 | XMS_ITS | Encounter Summary ---
Author Organization [facility] Address [address] [place] [address] Care Team Providers Care Metal Bonding Assembler Name Role Phone Porsha Garrido MD Primary Care Provider Encounter Details Date Type Department Care Team (Late st Contact Info) Description 06/15/2002 Outpatient Historical [facility] Pediatrics [place] [address] [facility] [place] [address] [place] [address] Deshawn Kitchen MD NO ADDRESS ON FILE Social History Tobacco Use Types Packs/Day Years Used Date Smoking Tobacco: Never Assessed Comments Unknown Sex and Gender Information Value Date Recorded Sex Assigned at Not on file Legal Sex Female 3:08 AM PRODUCTION MECHANIC TIN CANS Gender Identity Not on file Sexual Orientation Not on file documented as of this encounter Plan of Treatment Upcoming Encounters Date Type Department Care Team (Late st Contact Info) Description 06/25/2025 3:10 PM PRODUCTION MECHANIC TIN CANS Office Visit [facility] Gastroenterology [address] [place] [address] Gary Burgess MD [address] [id number] [place] [address] 08/08/2025 10:30 AM CDT Office Visit [facility] Neurology [address] [place] [address] Rama De La Paz MD [address] [facility] [address] [place] [address] documented as of this encounter Visit Diagnoses Not on filedocumented in this encounter Additional Health Concerns Infection Onset Date Last Indicated Resolved Time R/O C. diff 05/21/2020 05/21/2020 05/21/2020 1:01 PM PRODUCTION MECHANIC TIN CANS R/O C. diff 10/31/2021 10/30/2021 10/31/2021 3:51 PM CDT R/O C. diff 09/01/2022 08/31/2022 09/01/2022 5:17 PM CDT documented as of this encounter Care Teams Metal Bonding Assembler Relationship Specialty Start Date End Date Porsha Garrido MD [address] [place] [address] PCP - General 03/04/09 documented as of this encounter
--- OUTSIDE RECORDS SUMMARY | 2025-01-06 16:58 | XMS_ITS | Encounter Summary ---
Author Organization [facility] Address [address] [place] [address] Care Team Providers Care Medical Registrar Name Role Phone Porsha Garrido MD Primary Care Provider Encounter Details Date Type Department Care Team (Late st Contact Info) Description 08/18/1998 Outpatient Historical [facility] Pediatrics [place] [address] [facility] [place] [address] [place] [address] Brayan Solitario MD [address] [place] [place] [address] Social History Tobacco Use Types Packs/Day Years Used Date Smoking Tobacco: Never Assessed Comments Unknown Sex and Gender Information Value Date Recorded Sex Assigned at Not on file Legal Sex Female 3:08 AM CSW Gender Identity Not on file Sexual Orientation Not on file documented as of this encounter Plan of Treatment Upcoming Encounters Date Type Department Care Team (Late st Contact Info) Description 06/25/2025 3:10 PM CSW Office Visit [facility] Gastroenterology [place] [address] [place] [address] Gary Burgess MD [address] [id number] [place] [address] 08/08/2025 10:30 AM CDT Office Visit [facility] Neurology [address] [facility] [address] [place] [address] Rama De La Paz MD [address] [facility] [address] [place] [address] documented as of this encounter Visit Diagnoses Not on filedocumented in this encounter Additional Health Concerns Infection Onset Date Last Indicated Resolved Time R/O C. diff 05/21/2020 05/21/2020 05/21/2020 1:01 PM CSW R/O C. diff 10/31/2021 10/30/2021 10/31/2021 3:51 PM CDT R/O C. diff 09/01/2022 08/31/2022 09/01/2022 5:17 PM CDT documented as of this encounter Care Teams Medical Registrar Relationship Specialty Start Date End Date Porsha Garrido MD [address] [place] [address] PCP - General 03/04/09 documented as of this encounter
--- OUTSIDE RECORDS SUMMARY | 2025-01-06 16:58 | XMS_ITS | Encounter Summary ---
Author Organization [facility] Address [address] [place] [address] Care Team Providers Care Television Specialist Name Role Phone Porsha Garrido MD Primary Care Provider Gary Burgess MD Unavailable [phone] Evelyn García RN Unavailable [phone] Joselito Gold MD Unavailable [phone] Michelle Nogueira EXERCISE INSTRUCT-RECOVERY COACH Unavailable [phone] Porsha Garrido MD Unavailable [phone] Marjorie Weston Unavailable Porsha Garrido MD Unavailable [phone] Reason for Visit * Reason Onset Date Comments MEDICATION REFILL 04/16/2024 Encounter Details Date Type Department Care Team (Late st Contact Info) Description 04/16/2024 Refill [facility] - HVAC DESIGN MECHANICAL ENGINEER [address] [place] [address] [address] [place] [address] Joselito Gold MD [address] [place] [address] MEDICATION REFILL Social History Tobacco Use Types [...] on file Legal 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 [place] [address] 03/04/2025 10:40 AM CDT Office Visit [facility] Breast Care - Surgery [address] [place] [address] Nicky Sheridan, EXERCISE INSTRUCT-[facility] [address] [facility] [address] [place] [address] documented as of this encounter Visit Diagnoses Not on filedocumented in this encounter Care Teams Television Specialist Relationship Specialty Start Date End Date Porsha Garrido MD [address] [place] [address] [address] [place] [address] PCP - General 01/31/11 Porsha Garrido MD [address] [place] [address] PCP - Attributed-[employer] 11/13/22 07/31/24 Porsha Garrido MD [address] [place] [address] PCP - Attributed-[employer] 07/14/24 Gary Burgess MD [address] [place] [address] [address] [place] [address] Gastroenterology 08/22/13 Evelyn García RN Terminal Operator 01/05/15 06/07/24 Joselito Gold MD [address] [place] [address] Obstetrics and Gynecology 07/15/20 5 Michelle Nogueira, EXERCISE INSTRUCT-RECOVERY COACH [address] [place] [address] Nurse Practitioner Nurse Practitioner Adult Health 09/03/22 12/24/24 Marjorie Weston DO [address] [place] [address] Rheumatology 05/31/24 12/24/24 documented as of this encounter
--- OUTSIDE RECORDS SUMMARY | 2025-01-06 16:58 | XMS_ITS | Encounter Summary ---
Author Organization [facility] Address [address] [place] [address] Care Team Providers Care Validation Architect Name Role Phone Porsha Garrido MD Primary Care Provider Encounter Details Date Type Department Care Team (Late st Contact Info) Description 04/16/1998 Outpatient Historical [facility] Pediatrics [place] [address] [facility] [place] [address] [place] [address] Deshawn Kitchen MD NO ADDRESS ON FILE Social History Tobacco Use Types Packs/Day Years Used Date Smoking Tobacco: Never Assessed Comments Unknown Sex and Gender Information Value Date Recorded Sex Assigned at Not on file Legal Sex Female 3:08 AM BUTCHER HEAD Gender Identity Not on file Sexual Orientation Not on file documented as of this encounter Plan of Treatment Upcoming Encounters Date Type Department Care Team (Late st Contact Info) Description 06/25/2025 3:10 PM BUTCHER HEAD Office Visit [facility] Gastroenterology [place] [address] [place] [address] Gary Burgess MD [address] [id number] [place] [address] 08/08/2025 10:30 AM CDT Office Visit [facility] Neurology [address] [place] [address] Rama De La Paz MD [address] [facility] [address] [place] [address] documented as of this encounter Visit Diagnoses Not on filedocumented in this encounter Additional Health Concerns Infection Onset Date Last Indicated Resolved Time R/O C. diff 05/21/2020 05/21/2020 05/21/2020 1:01 PM BUTCHER HEAD R/O C. diff 10/31/2021 10/30/2021 10/31/2021 3:51 PM CDT R/O C. diff 09/01/2022 08/31/2022 09/01/2022 5:17 PM CDT documented as of this encounter Care Teams Validation Architect Relationship Specialty Start Date End Date Porsha Garrido MD [address] [place] [address] PCP - General 03/04/09 documented as of this encounter
[2025-01-06 17:06] LABS: Alanine Aminotransferase 14 U/L (6-35); Albumin Level 4.6 g/dL (3.5-5.1); Alkaline Phosphatase 59 U/L (38-126); Anion Gap 6 mmol/L (4-12); Aspartate Amino Transferase 22 U/L (14-36); Bilirubin,Total 0.3 mg/dL (0.2-1.3); Blood Urea Nitrogen 11 mg/dL (7-17); Calcium 9.4 mg/dL (8.4-10.2); Carbon Dioxide 28 mmol/L (22-30); Chloride 104 mmol/L (98-107); Estimated CRCL calculation 110 ml/min; Estimated Glomerular Filt Rate > 60; Glucose 87 mg/dL (65-110); Potassium 3.6 mmol/L (3.4-5.0); Sodium 138 mmol/L (137-145); Total Protein 7.9 g/dL (6.3-8.2)
[2025-01-06 17:24] LABS: Add Urine Microscopic? YES; Appearance Urine Clear (Clear); Glucose Urine UA Negative (Negative); Leukocyte Esterase Ur Negative LEU/UL (Negative); Nitrate Urine Negative (Negative); Non Pathogenic Casts 0-2; Specific Grav Ur 1.004 (1.001-1.035)
[2025-01-06 18:09] VITALS: BP 107/60; PULSE 72; RESP 14; O2SAT 99
== END 2025-01-06 18:13 | disposition home or self-care (01) ==
PROVIDERS: Emergency Medicine; Emergency Provider Emergency Medicine
DX: R10.12 Left upper quadrant pain (principal); J45.909 Unspecified asthma, uncomplicated; K51.90 Ulcerative colitis, unspecified, without complications; K21.9 Gastro-esophageal reflux disease without esophagitis; D64.9 Anemia, unspecified; F41.9 Anxiety disorder, unspecified; Z79.620 Long term (current) use of immunosuppressive biologic; Z79.899 Other long term (current) drug therapy; N20.0 Calculus of kidney
CPT/HCPCS: 36415; 74177; 80053; 81001; 81025; 85025; 99284; Q9967